=== PATIENT | female | born 1950 | race Caucasian/White ===

== ENCOUNTER → 2017-11-21 13:36 | Outpatient (CLI) | payer OTHER, MEDICARE, SELFPAY ==
--- NOTE | 2017-11-21 13:44 | CT_ITS ---
CT hip LT wo con HISTORY: Left hip pain/contusion following injury ITS.REASON: LUMBAR CONTUSION S/P FALL LEFT HIP PAIN ORDERING PHYSICIAN: Ephraim Lombardo MD PATIENT AGE: 67 years TECHNIQUE: Axial images are obtained without contrast. Sagittal, coronal, and 3-D reformatted images are also generated and reviewed. COMPARISON: None FINDINGS: No fracture or dislocation. There are mild osteoarthritic changes of the left hip. No lytic or blastic change. There is some subcutaneous calcification noted in the left buttock injection granulomas. IMPRESSION: 1. No acute fracture or other acute anomalies. 2. Mild osteoarthritic changes of the left hip
--- NOTE | 2017-11-21 13:44 | CT_ITS ---
CT lumbar spine wo con INDICATION: Low back pain following injury, lumbar contusion ITS.REASON: LUMBAR CONTUSION LEFT HIP PAIN ORDERING PHYSICIAN: Ephraim Lombardo MD PATIENT AGE: 67 years COMPARISON: Previous lumbar spine exam of 12/27/[address] scan of the abdomen of 10/15/2011 TECHNIQUE: Axial images are obtained without contrast. Sagittal and coronal reformatted images are reviewed as well. FINDINGS: There are vestigial 12th ribs. Mildly displaced fracture involving the tip of the transverse process on the left at L1. Mild displaced fracture involves the mid aspect of the left transverse process of L2 and a mildly displaced fracture involving the base of the transverse process on the left at L3 with the lateral fracture fragment displaced laterally x 4 mm. The disc spaces are well-preserved. No other fractures are apparent. Mild bulging disc is present at L4-L5 and L5-S1. There are facet hypertrophic changes at L4-5 and L5-S1 with mild anterolisthesis of L5 3 mm with bilateral foraminal narrowing at L5-S1. There is some subcutaneous edema in the lumbar region with increased soft tissue density in the left posterior lumbar region which may relate to contusion or hematoma. IMPRESSION: 1. Mildly displaced fractures involving the transverse process on the left at L1, L2, and L3 along with a minimal displaced fracture involving the vestigial 12th rib on the left 2. Mild bulging disc at L4-L5 and L5-S1 with prominent facet hypertrophic changes at L5-S1 and bilateral foraminal narrowing with mild anterolisthesis of L5
== END ==
PROVIDERS: Family Provider Internal Medicine Adolescent Medicine; PCP Internal Medicine Adolescent Medicine; Visit Provider Internal Medicine Adolescent Medicine
DX: M25.552 Pain in left hip (principal); S30.0XXD Contusion of lower back and pelvis, subsequent encounter
CPT/HCPCS: 72131; 73700

== ENCOUNTER → 2017-12-25 07:09 | Outpatient (CLI) | payer MEDICARE, OTHER, SELFPAY ==
[2017-12-25 13:41] LABS: Basophils # 0.1 K/mm3 (0-0.2); Basophils % 0.5 % (0.1-2.0); Eosinophils # 0.2 K/mm3 (0.0-0.4); Eosinophils % 2.9 % (0.1-12.0); Hematocrit 43.1 % (37.0-47.0); Hemoglobin 14.2 g/dL (12.2-16.2); Lymphocytes # 2.4 K/mm3 (0.7-4.5); Lymphocytes % 28.5 K/mm3 (10-50); Mean Corpuscular HGB Conc 33.1 g/dL (31.8-35.4); Mean Corpuscular Hemoglobin 29.1 pg (27.0-31.2); Mean Corpuscular Volume 88.1 fl (81-99); Mean Platelet Volume 8.8 fl (7.4-10.4); Monocytes # 0.5 K/mm3 (0.1-1.0); Monocytes % 5.4 % (1.7-9.3); Neutrophils # 5.2 K/mm3 (1.8-7.8); Neutrophils % 62.7 % (37.0-80.0); Platelet Count 197 K/mm3 (142-424); Red Blood Count 4.89 M/mm3 (4.20-5.40); Red Cell Distribution Width 12.9 % (11.5-17.5); White Blood Count 8.3 K/mm3 (4.8-10.8)
[2017-12-26 11:39] LABS: Vitamin B12 555 pg/mL (232-1245); Vitamin D 25 Hydroxy 8.3 ng/mL (30.0-100.0)
[2017-12-26 15:14] LABS: Alanine Aminotransferase 20 U/L (12-78); Albumin Level 3.8 gm/dL (3.4-5.0); Albumin/Globulin Ratio 1.3 (1.1-1.8); Alkaline Phosphatase 140 U/L (46-116); Anion Gap 12.5 mEq/L (5-15); Aspartate Amino Transferase 10 U/L (15-37); Bilirubin,Total 0.4 mg/dL (0.2-1.0); Blood Urea Nitrogen 14 mg/dL (7-18); Calcium 8.7 mg/dL (8.5-10.1); Carbon Dioxide 27 mmol/L (21.0-32.0); Chloride 108 mmol/L (98-107); Creatinine,Serum 1.09 mg/dL (0.55-1.02); Estimated Glomerular Filt Rate 50 ml/min (>60); Free Thyroxine Index 3.2 ug/dL (5.93-13.13); GFR (African American) 61 ML/MIN (>60); Globulin 2.9 gm/dl (1.3-3.2); Glucose 84 mg/dL (74-106); Magnesium 1.8 mg/dL (1.4-2.2); Potassium 4.5 mmoL/L (3.5-5.1); Sodium 143 mmol/L (136-145); T4 (Thyroxine) 9.7 ug/dl (4.7-13.3); Thyroid Stimulating Hormone 1.23 uIU/ml (0.358-3.740); Total Protein,Serum 6.7 gm/dL (6.4-8.2); Triiodothryronine (T3) Uptake 33 % (31-39)
== END ==
PROVIDERS: Visit Provider Internal Medicine Adolescent Medicine
DX: R53.81 Other malaise (principal); M79.1 Myalgia
CPT/HCPCS: 36415; 80053; 82607; 82652; 83735; 84436; 84443; 84479; 85025

== ENCOUNTER 2017-12-30 15:30 | Outpatient (RCR) | payer OTHER, MEDICARE, SELFPAY | END 2017-12-30 17:00 | disposition home or self-care (01) | LOC: PT 15:30 | PROVIDERS: Family Provider Internal Medicine Adolescent Medicine; PCP Internal Medicine Adolescent Medicine; Visit Provider Orthopaedic Surgery | DX: M47.898 Other spondylosis, sacral and sacrococcygeal region (principal); M54.5 Low back pain | CPT/HCPCS: 97110 ==

== ENCOUNTER → 2018-04-21 07:04 | Outpatient (CLI) | payer MEDICARE, OTHER, SELFPAY ==
[2018-04-21 14:04] LABS: Basophils % 0.6 % (0.1-2.0); Eosinophils # 0.3 K/mm3 (0.0-0.4); Eosinophils % 3.9 % (0.1-12.0); Hematocrit 41.5 % (37.0-47.0); Hemoglobin 13.3 g/dL (12.2-16.2); Lymphocytes # 2.3 K/mm3 (0.7-4.5); Lymphocytes % 35.8 K/mm3 (10-50); Mean Corpuscular HGB Conc 32.1 g/dL (31.8-35.4); Mean Corpuscular Hemoglobin 28.8 pg (27.0-31.2); Mean Corpuscular Volume 89.6 fl (81-99); Mean Platelet Volume 8.8 fl (7.4-10.4); Monocytes # 0.4 K/mm3 (0.1-1.0); Monocytes % 5.9 % (1.7-9.3); Neutrophils # 3.4 K/mm3 (1.8-7.8); Neutrophils % 53.8 % (37.0-80.0); Platelet Count 245 K/mm3 (142-424); Red Blood Count 4.63 M/mm3 (4.20-5.40); Red Cell Distribution Width 12.9 % (11.5-17.5); White Blood Count 6.4 K/mm3 (4.8-10.8)
[2018-04-21 14:24] LABS: Alanine Aminotransferase 19 U/L (12-78); Albumin Level 3.6 gm/dL (3.4-5.0); Albumin/Globulin Ratio 1.4 (1.1-1.8); Alkaline Phosphatase 127 U/L (46-116); Anion Gap 13.3 mEq/L (5-15); Aspartate Amino Transferase 14 U/L (15-37); Bilirubin,Total 0.3 mg/dL (0.2-1.0); Blood Urea Nitrogen 14 mg/dL (7-18); Calcium 8.6 mg/dL (8.5-10.1); Carbon Dioxide 26 mmol/L (21.0-32.0); Chloride 108 mmol/L (98-107); Chol/HDL Ratio 5.5 (1-3.5); Cholesterol 205 mg/dL (140-200); Estimated Glomerular Filt Rate 50 ml/min (>60); GFR (African American) 60 ML/MIN (>60); Globulin 2.6 gm/dl (1.3-3.2); Glucose 90 mg/dL (74-106); HDL Cholesterol 37 mg/dL (29-89); LDL Cholesterol 134 mg/dL (0-130); Potassium 4.3 mmoL/L (3.5-5.1); Sodium 143 mmol/L (136-145); Total Protein,Serum 6.2 gm/dL (6.4-8.2); Triglycerides 168 mg/dL (30-200); VLDL Cholesterol 34 mg/dL (0-40)
[2018-04-23 08:04] LABS: Vitamin D 25 Hydroxy 33.5 ng/mL (30.0-100.0)
== END ==
PROVIDERS: Visit Provider Internal Medicine Adolescent Medicine
DX: E78.5 Hyperlipidemia, unspecified (principal); E55.9 Vitamin D deficiency, unspecified
CPT/HCPCS: 36415; 80053; 80061; 82652; 85025

== ENCOUNTER → 2018-08-18 16:13 | Outpatient (CLI) | payer MEDICARE, OTHER, SELFPAY ==
--- NOTE | 2018-08-18 16:15 | MM_ITS ---
MM Dig screening mamm BI w/CAD CAD Screening COMPARISON: Digital mammograms with CAD 04/17/2011 and 01/19/2014 INDICATION: There is no personal or family history of breast cancer TECHNIQUE: Standard CC and MLO images were obtained. R2 CAD reviewed. FINDINGS: The breasts are composed primarily of fat with scattered fibroglandular densities in the subareolar regions of both breasts. There are stable tiny nodular densities in both breasts. There is no suspicious lesion and there are no suspicious microcalcifications. IMPRESSION: Fibrofatty parenchyma with no suspicious lesion seen BI-RADS Category: 2 Benign Finding(s) RECOMMENDED FOLLOW-UP: 1YR - 1 YEAR FOLLOW-UP (A letter has been sent to the patient regarding results of the study.)
== END ==
PROVIDERS: Family Provider Internal Medicine Adolescent Medicine; PCP Internal Medicine Adolescent Medicine; Visit Provider Internal Medicine Adolescent Medicine
DX: Z12.31 Encounter for screening mammogram for malignant neoplasm of breast (principal)
CPT/HCPCS: 77067

== ENCOUNTER 2018-10-22 14:27 | Inpatient (IN) ==
[2018-10-22 15:09] LABS: Microscopic, Urine URINE MICROSCOPIC (MICROSCOPIC)
[2018-10-22 15:12] LABS: Basophils # 0.1 K/mm3 (0-0.2); Basophils % 0.9 % (0.1-2.0); Eosinophils # 0.2 K/mm3 (0.0-0.4); Eosinophils % 1.4 % (0.1-12.0); Hematocrit 42.4 % (37.0-47.0); Lymphocytes # 2.2 K/mm3 (0.7-4.5); Mean Corpuscular Hemoglobin 30.6 pg (27.0-31.2); Mean Corpuscular Volume 92.7 fl (81-99); Mean Platelet Volume 7.7 fl (7.4-10.4); Monocytes # 0.7 K/mm3 (0.1-1.0); Monocytes % 5.4 % (1.7-9.3); Neutrophils # 10.4 K/mm3 (1.8-7.8); Neutrophils % 76.4 % (37.0-80.0); Platelet Count 234 K/mm3 (142-424); Red Blood Count 4.58 M/mm3 (4.20-5.40); Red Cell Distribution Width 13.8 % (11.5-17.5); White Blood Count 13.6 K/mm3 (4.8-10.8)
[2018-10-22 15:18] LABS: Appearance,Urine CLEAR (Clear); Bilirubin,Urine Negative (Negative); Blood, Urine Negative (Negative); Color,Urine YELLOW (Yellow); Glucose,Urine (UA) Negative (Negative); Ketones,Urine Negative (Negative); Leukocyte Esterase,Urine Negative (Negative); Protein,Urine Negative (Negative); Specific Gravity, Urine <= 1.005 (1.005-1.030); Urobilinogen,Urine 0.2 EU/dl (0.2)
[2018-10-22 15:31] LABS: Bacteria,Urine Trace /lpf
[2018-10-22 15:33] LABS: Albumin Level 3.7 gm/dL (3.4-5.0); Albumin/Globulin Ratio 1.1 (1.1-1.8); Anion Gap 14.1 mEq/L (5-15); Bilirubin,Total 0.3 mg/dL (0.2-1.0); Calcium 8.7 mg/dL (8.5-10.1); Globulin 3.3 gm/dl (1.3-3.2); Potassium 4.1 mmoL/L (3.5-5.1)
--- NOTE | 2018-10-22 17:37 | Emergency Department Note ---
ED Disposition Clinical Impression: Acute hypoxemic respiratory failure COPD (chronic obstructive pulmonary disease) Qualifiers: COPD type: COPD with acute exacerbation Qualified Code(s): J44.1 - Chronic obstructive pulmonary disease with (acute) exacerbation Disposition: Admitted as Observation Condition on Discharge: Good Time of Disposition: 08:00 - Critical Care Critical Care Time: No Attestation: On 10/22/18, the high probability of a clinically significant, sudden or life threatening deterioration of the following system(s) required my full and direct attention, intervention and personal management. The time I documented below is in addition to time spent performing reported procedures but includes the following listed in this critical care notation. Medical Decision Making - Noble Inquiry Pt receiving controlled substance: No Noble was queried for this patient: No Vital Signs: 10/22/18 14:45 10/22/18 15:00 10/22/18 15:23 Temperature 98.1 F Temperature Source Oral Pulse Rate 72 Pulse Rate [Right Brachial] 85 85 Respiratory Rate 16 20 Blood Pressure Blood Pressure [Right Arm] 113/65 164/68 H Blood Pressure Mean [Right Arm] 81 100 Blood Pressure Source Blood Pressure Source [Right Arm] Automatic Cuff Automatic Cuff Blood Pressure Position Blood Pressure Position [Right Arm] Sitting Sitting 02 Sat by Pulse Oximetry 83 L 98 94 L Oxygen Delivery Method Room Air Nasal Cannula Nasal Cannula Oxygen Flow Rate (LPM) 2 2 10/22/18 16:21 10/22/18 18:21 10/22/18 18:29 Temperature 98.7 F 98.7 F Temperature Source Oral Oral Pulse Rate 81 83 Pulse Rate [Right Brachial] 76 Respiratory Rate 20 20 Blood Pressure 174/91 H Blood Pressure [Right Arm] 192/73 H Blood Pressure Mean [Right Arm] 112 Blood Pressure Source Automatic Cuff Blood Pressure Source [Right Arm] Automatic Cuff Blood Pressure Position Sitting Blood Pressure Position [Right Arm] Sitting 02 Sat by Pulse Oximetry 95 Oxygen Delivery Method Room Air Room Air Oxygen Flow Rate (LPM) 10/22/18 18:35 Temperature Temperature Source Pulse Rate Pulse Rate [Right Brachial] Respiratory Rate Blood Pressure Blood Pressure [Right Arm] Blood Pressure Mean [Right Arm] Blood Pressure Source Blood Pressure Source [Right Arm] Blood Pressure Position Blood Pressure Position [Right Arm] 02 Sat by Pulse Oximetry Oxygen Delivery Method Nasal Cannula Oxygen Flow Rate (LPM) - Lab Data Lab Results 10/22/18 14:55: WBC 13.6 H, RBC 4.58, Hgb 14.0, Hct 42.4, MCV 92.7, MCH 30.6, MCHC 33.0, RDW 13.8, Plt Count 234, MPV 7.7, Neut % (Auto) 76.4, Lymph % (Auto) 16.0, [place] % (Auto) 5.4, Eos % (Auto) 1.4, Baso % (Auto) 0.9, Neut # (Auto) 10.4 H, Lymph # (Auto) 2.2, [place] # (Auto) 0.7, Eos # (Auto) 0.2, Baso # (Auto) 0.1 10/22/18 14:55: Sodium 142, Potassium 4.1, Chloride 103, Carbon Dioxide 29, Anion Gap 14.1, BUN 13, Creatinine 1.15 H, Estimated Creat Clear 56, Estimated GFR 47 L, Est GFR ( Amer) 57 L, Glucose 71 L, Calcium 8.7, Total Bilirubin 0.3, AST 17, ALT 27, Alkaline Phosphatase 126 H, Total Protein 7.0, Albumin 3.7, Globulin 3.3 H, Albumin/Globulin Ratio 1.1 10/22/18 14:55: Lactate 1.0 10/22/18 14:55: Influenza Type A Ag Negative, Influenza Type B Ag Negative 10/22/18 14:55: Urine Color Yellow, Urine Appearance Clear, Urine pH 6.0, Ur Specific [place] <= 1.005, Urine Protein Negative, Urine Glucose (UA) Negative, Urine Ketones Negative, Urine Blood Negative, Urine Nitrate Negative, Urine Bilirubin Negative, Urine Urobilinogen 0.2, Ur Leukocyte Esterase Negative, Urine RBC None, Urine WBC 3-5, Ur Squamous Epith Cells 3-5, Urine Bacteria Trace Result diagrams: 10/24/18 07:06 10/24/18 07:06 Orders (Tests/Meds): ED MEDICATIONS Discontinued Medications Generic Name Dose Route Start Last Admin Trade Name Freq PRN Reason Stop Dose Admin Acetaminophen 500 mg 10/22/18 20:54 10/23/18 21:11 Tylenol 500mg Tablet PO 11/21/18 20:53 500 mg Q6HP PRN Administration Mild Pain Albuterol/Ipratropium 3 ml 10/22/18 14:55 10/22/18 14:58 Duoneb 3ml Neb IH 10/22/18 14:56 3 ml ONCE ONE Administration Albuterol/Ipratropium 3 ml 10/22/18 16:20 10/22/18 16:21 Duoneb 3ml Neb 10/22/18 16:21 3 ml ONCE ONE Administration Albuterol/Ipratropium 3 ml 10/22/18 17:43 Duoneb 3ml Neb 11/21/18 17:42 Q4HP PRN Dyspnea Albuterol/Ipratropium 3 ml 10/22/18 18:14 10/23/18 20:38 Duoneb 3ml Neb 11/21/18 17:42 3 ml Q4HP PRN Administration Dyspnea Benzonatate 200 mg 10/22/18 16:15 10/22/18 16:08 Tessalon Perles 100mg Capsule PO 11/21/18 16:14 200 mg ONCE TANA Administration Benzonatate 200 mg 10/22/18 18:14 Tessalon Perles 100mg Capsule PO 11/21/18 16:14 ONCE TANA Benzonatate 200 mg 10/22/18 18:14 10/23/18 23:11 Tessalon Perles 100mg Capsule PO 10/22/18 18:15 Not Given ONCE ONE Citalopram Hydrobromide 40 mg 10/23/18 09:00 10/24/18 09:25 Celexa 40mg Tablet PO 11/22/18 08:59 40 mg DAILY TANA Administration Piperacillin Sod/Tazobactam 100 mls @ 200 mls/hr 10/23/18 09:00 10/24/18 09:27 Sod 4.5 gm/ Sodium Chloride IV 11/06/18 08:59 200 mls/hr Q6H TANA Administration Methylprednisolone Sodium Succinate 125 mg 10/22/18 14:56 10/22/18 14:58 Solu-Medrol 125mg/2ml Vial IV 10/22/18 14:57 125 mg ONCE ONE Administration Methylprednisolone Sodium Succinate 60 mg 10/22/18 18:00 10/22/18 18:17 Methylprednisolone Sod Succinate 40mg Vial IV 11/21/18 17:59 Not Given Q6H TANA Methylprednisolone Sodium Succinate 60 mg 10/23/18 00:00 10/23/18 05:13 Methylprednisolone Sod Succinate 40mg Vial IV 11/21/18 17:59 60 mg Q6H TANA Administration Methylprednisolone Sodium Succinate 60 mg 10/23/18 08:27 10/24/18 09:27 Solu-Medrol 125mg/2ml Vial IV 11/21/18 17:59 60 mg Q6H TANA Administration Oxycodone/Acetaminophen 1 each 10/23/18 08:36 10/24/18 09:27 Percocet 5/325mg Tablet PO 11/22/18 08:35 1 each Q6HP PRN Administration Breakthru Mild Pain Pantoprazole Sodium 40 mg 10/23/18 21:00 10/23/18 21:11 Protonix 40mg Tablet PO 11/22/18 20:59 40 mg HS TANA Administration Promethazine HCl/Codeine 10 ml 10/22/18 16:51 10/22/18 16:54 Phenergan W/Codeine 6.25mg/10mg 5ml Udc PO 10/22/18 16:52 10 mg ONCE ONE Administration Promethazine HCl/Codeine 5 ml 10/22/18 17:43 10/22/18 18:17 Phenergan W/Codeine 6.25mg/10mg 5ml Udc PO 10/22/18 17:44 Not Given ONCE ONE Promethazine HCl/Codeine 5 ml 10/22/18 18:14 10/22/18 18:17 Phenergan W/Codeine 6.25mg/10mg 5ml Udc PO 10/22/18 18:15 Not Given ONCE ONE Sodium Chloride 10 ml 10/22/18 14:55 Saline Flush 10ml Syringe IV 11/21/18 14:54 NEEDED PRN Maintain IV Site Sodium Chloride 3 ml 10/22/18 14:57 Sodium Chloride 3% 15ml [facility] 11/21/18 14:56 ONCE PRN INDUCE [employer] Sodium Chloride 10 ml 10/22/18 18:14 Saline Flush 10ml Syringe IV 11/21/18 14:54 NEEDED PRN Maintain IV Site Sodium Chloride 3 ml 10/22/18 18:14 Sodium Chloride 3% 15ml [facility] 11/21/18 14:56 ONCE PRN INDUCE SPUTUM [employer]LECTION ORDERS Category Date Time Status UA [Urinalysis and Microscopic] Stat Lab 10/22/18 14:55 Ordered Blood Culture Stat Micro 10/22/18 14:55 Ordered General Adult HPI - General Chief complaint: Shortness of Breath/Dyspnea Stated complaint: weak, cough,achy,chills Mode of Arrival: Ambulatory Limitations: No Limitations Description of Symptoms (Recalled from ER Triage Doc. by RN): Pt advises she was sent from office for [place] work-up. Pt c/o SOA, body aches, headache. Symptoms started two days ago - History of Present Illness HPI narrative: two days of worsening shortness of breath, fatigue, chills - Related Data Home Medications Medication Instructions Recorded Confirmed RX: Citalopram Hydrobromide 40 mg PO DAILY 03/02/18 10/22/18 [Celexa 40mg Tablet] RX: Omeprazole [Omeprazole 40mg 40 mg PO DAILY 03/02/18 10/22/18 Capsule] Previous Rx's Medication Instructions Recorded Albuterol Sulfate [Albuterol HFA 2 - 4 puffs IH Q4HP PRN 30 Days #1 10/24/18 Inhaler] inh Amoxicillin/Potassium Clav 1 tab PO Q12H 8 Days #16 tab 10/24/18 [Augmentin 875-125 Tablet] RX: Azithromycin [Z-José Luis 250mg Tab] 250 mg PO UD DOSE PK #6 tab 10/24/18 RX: Oxycodone HCl/Acetaminophen 1 each PO Q6HP PRN tablet 10/24/18 [Percocet 5/325mg tablet] Allergies Allergy/AdvReac Type Severity Reaction Status Date / Time No Known Allergies Allergy Verified 10/22/18 14:54 [facility] History - Hepatitis A Screen Drug use history?: No High risk sexual behaviors?: No History of sexually transmitted infection?: No Currently employed?: No Childcare worker?: No Do you have indoor plumbing?: Yes Do you have electricity?: Yes Attestation statement:: This patient has been screened for Hepatitis A risk factors. I have reviewed the patient's past medical history: Yes Medical History: Reports:: Lung Disease (COPD) Denies:: Cancer, Diabetes Mellitus Type 1, Diabetes Mellitus Type 2, Internal Pacemaker, MRSA, Seizures Other Surgeries: No: Pacemaker Amputation: No Fractures: No - Social History Smoking Status: Current every day smoker Alcohol Intake: never - Psychiatric History Expresses thoughts of harming self/others: None Suicide Plan Description: No Plan ROS Obtained: Yes All systems reviewed & no additional complaints - Constitutional Constitutional: Reports system reviewed and no additional complaints, except as docu, Reports chills, Reports fever(s), Reports malaise - Eyes Eyes: Reports system reviewed and no additional complaints, except as docu, Denies blurry vision, Denies change in vision - ENT Ears, Nose, Mouth, and Throat: Reports system reviewed and no additional comp laints, except as docu, Denies throat swelling - Cardiovascular Cardiovascular: Reports system reviewed and no additional complaints, except as docu, Denies chest pain, Denies chest pain at rest, Denies chest pain with activity, Reports dyspnea, Reports dyspnea on exertion, Denies palpitations, Denies pedal edema - Respiratory Respiratory: Yes system reviewed and no additional complaints, except as docu, Yes chest congestion, Yes cough, Yes dyspnea, Yes dyspnea on exertion, No coughing up blood, Yes pain on inspiration, Yes wheezing - Gastrointestinal Gastrointestingal: Reports: system reviewed and no additional complaints, except as docu - Genitourinary Male Genitourinary: Reports system reviewed and no additional complaints, except as docu Female Genitourinary: Reports system reviewed and no additional complaints, except as docu - Musculoskeletal Musculoskeletal: Reports system reviewed and no additional complaints, except as docu, Denies decreased muscle mass, Denies stiffness, Denies tingling - Integumentary/Breasts Skin/Breast: Reports system reviewed and no additional complaints, except as docu, Reports rash - Neurologic Neurologic: Reports system reviewed and no additional complaints, except as docu, Denies abnormal movements, Denies dizziness, Denies focal weakness, Denies tingling/numbness/burning sensations Physical Exam - General General appearance: alert, anxious, in distress - Head Head exam: atraumatic, normocephalic - Eye Eye exam: Present: normal appearance, PERRL, EOMI - ENT ENT exam: Present: normal exam, normal oropharynx. Absent: mucous membranes moist - Neck Neck exam: Present: normal inspection, full ROM, trachea midline. Absent: tenderness, meningismus - Chest Chest inspection: Present: normal inspection. Absent: symmetric chest wall rise, tenderness - Respiratory Respiratory exam: Present: respiratory distress, wheezes, stridor. Absent: normal lung sounds bilaterally - Cardiovascular Cardiovascular exam: Present: regular rate, normal rhythm. Absent: tachycardia - Abdominal Exam Abdominal exam: Present: soft, distention, normal bowel sounds. Absent: tenderness, guarding - Extremities Exam Extremities exam: Present: normal inspection. Absent: full ROM, tenderness - Neurological Exam Neurological exam: Present: alert, oriented X3, CN II-XII intact - Psychiatric Psychiatric exam: Present: normal affect, normal mood - Skin Skin exam: Present: warm, dry, intact. Absent: rash
--- NOTE | 2018-10-23 07:39 | Pharmacy Consult Notes ---
[facility] Pharmacy VTE Monitoring - Patient Demographics Admission date: 10/22/18 Report Date: 10/23/18 Time: 07:39 Allergies/Adverse Reactions: Patient Allergies No Known Allergies Allergy (Verified 10/22/18 14:54) Height: 1.75 m Weight: 76.884 kg Patient Problems: Current Active Problems COPD (chronic obstructive pulmonary disease) (Acute) - VTE Risk Labs: VTE Related Lab Results Hgb 14.0 g/dL (12.2-16.2) 10/22/18 14:55 Hct 42.4 % (37.0-47.0) 10/22/18 14:55 Plt Count 234 K/mm3 (142-424) 10/22/18 14:55 BUN 13 mg/dL (7-18) 10/22/18 14:55 Creatinine 1.15 mg/dL (0.55-1.02) H 10/22/18 14:55 Estimated Creat Clear 56 mL/min (50-200) 10/22/18 14:55 VTE Score: 3 VTE Risk Level: Low Risk - Prophylaxis VTE Prophylaxis Ordered?: Yes Types of VTE Prophylaxis: TEDS Knee High Location of Applied Device: Bilateral Lower Extremeties - VTE Diagnosis Confirmed Treatment or plan recommended: Continue Current Treatment
--- NOTE | 2018-10-23 07:57 | History & Physical Report ---
*Admission Date: 10/22/18 *Chief complaint: dyspnea *History of present illness: 68yo F well known to our clinic with Hx of COPD, Anxiety, and tobacco dependence. Presented to ER with worsening respiratory distress over the past 3-4 days. Treated last week for COPD exacerbation with completion of Abx and St eroids on Friday. Keyser better at that time with worsening since completion of meds. Using her inhalers at home. Not on O2 at home. Upon presentation to ER found to be hypoxic at 83% on RA. Given several Nebs and Supplemental O2 with improvement. Admitted to Medicine for further management. Cultures obtained and pending. Denies Fevers, N/V/D, CP, CALDERA, Lethargy or confusion. C/o SOA, Cough, chest wall pain. [facility] History I have reviewed the patient's past medical history: Yes Medical History: Reports:: Lung Disease (COPD) Denies:: Cancer, Diabetes Mellitus Type 1, Diabetes Mellitus Type 2, Internal Pacemaker, MRSA, Seizures Other Medical History: Reports: Fibromyalgia Other Surgeries: Yes: Cholecystectomy, Hysterectomy-Total. No: Pacemaker Amputation: No Fractures: No - *Social History Educational Level: Attended College Smoking Status: Current every day smoker Tobacco Type: cigarettes # Packs/Day (cigarettes): 1 #Yrs smoked (if former smoker): 53 Alcohol Intake: never Occupational Status: employed Housing: house Household Members: spouse, children - Psychiatric History Expresses thoughts of harming self/others: None Suicide Plan Description: No Plan *Family Hx:: Heart Attack, Hypertension Review of Systems - Review of Systems Review of systems:: pertinent systems reviewed and negative unless documented below - *Neurologic Denies abnormal movements, Denies dizziness, Denies localized weakness, Denies tingling/numbness/burning sensations, Denies tingling Meds Home Medications Medication Instructions Recorded Confirmed Type Citalopram Hydrobromide [Celexa 40 mg PO DAILY 03/02/18 10/22/18 History 40mg Tablet] Loratadine/Pseudoephedrine 1 each PO DAILY 03/02/18 10/22/18 History [Allergy Relief D-24 Tablet] Omeprazole [Omeprazole 40mg 40 mg PO DAILY 03/02/18 10/22/18 History Capsule] Allergies Allergy/AdvReac Type Severity Reaction Status Date / Time No Known Allergies Allergy Verified 10/22/18 14:54 Exam Vital signs and Labs for Last 24 Hours: Temp Pulse Resp BP Pulse Ox 98.6 F 68 16 143/67 H 95 10/23/18 04:37 10/23/18 04:37 10/23/18 04:37 10/23/18 04:37 10/23/18 04:37 Laboratory Results - last 24 hr 10/22/18 14:55: WBC 13.6 H, RBC 4.58, Hgb 14.0, Hct 42.4, MCV 92.7, MCH 30.6, MCHC 33.0, RDW 13.8, Plt Count 234, MPV 7.7, Neut % (Auto) 76.4, Lymph % (Auto) 16.0, [place] % (Auto) 5.4, Eos % (Auto) 1.4, Baso % (Auto) 0.9, Neut # (Auto) 10.4 H, Lymph # (Auto) 2.2, [place] # (Auto) 0.7, Eos # (Auto) 0.2, Baso # (Auto) 0.1 10/22/18 14:55: Sodium 142, Potassium 4.1, Chloride 103, Carbon Dioxide 29, Anion Gap 14.1, BUN 13, Creatinine 1.15 H, Estimated Creat Clear 56, Estimated GFR 47 L, Est GFR ( Amer) 57 L, Glucose 71 L, Calcium 8.7, Total Bilirubin 0.3, AST 17, ALT 27, Alkaline Phosphatase 126 H, Total Protein 7.0, Albumin 3.7, Globulin 3.3 H, Albumin/Globulin Ratio 1.1 10/22/18 14:55: Lactate 1.0 10/22/18 14:55: Influenza Type A Ag Negative, Influenza Type B Ag Negative 10/22/18 14:55: Urine Color Yellow, Urine Appearance Clear, Urine pH 6.0, Ur Specific [place] <= 1.005, Urine Protein Negative, Urine Glucose (UA) Negative, Urine Ketones Negative, Urine Blood Negative, Urine Nitrate Negative, Urine Bilirubin Negative, Urine Urobilinogen 0.2, Ur Leukocyte Esterase Negative, Urine RBC None, Urine WBC 3-5, Ur Squamous Epith Cells 3-5, Urine Bacteria Trace I & O for Last 24 hours: Intake & Output 10/20/18 10/21/18 10/22/18 10/23/18 23:59 23:59 23:59 23:59 Weight 76.884 kg 76.884 kg Microbiology Reports for the Last 24 Hours: Microbiology 10/22/18 15:00 Sputum - Expectorated Sputum Gram Stain - Final 10/22/18 15:00 Sputum - Expectorated Sputum Sputum Culture - Preliminary - Constitutional mild distress, chronically ill appearing - *Routine HEENT Exam Head: Present: normocephalic, atraumatic Eye: Present: EOMI, PERRL ENT: Present: mucous membranes moist - *Routine Neck Exam Present: supple, full ROM. Absent: JVD - *Routine Respiratory Exam Present: prolonged expiratory phase, wheezes, diminished air movement. Absent: rales, crackles - *Routine Cardiovascular Exam Present: RRR, Normal S1, Normal S2. Absent: murmur - *Routine Abdominal Exam Present: soft, normoactive bowel sounds - *Routine Rectal Exam Patient deferred: visual exam - *Routine Exam Patient deferred: external exam - *Routine Extremities Exam Absent: cyanosis, clubbing, edema - *Routine Skin Exam Present: intact. Absent: cyanosis, erythema - *Routine Neurological Exam Present: alert, oriented X3. Absent: altered mental status Assessment and Plan (1) Acute hypoxemic respiratory failure Current visit: Yes Status: Acute Category: Medical Code(s): J96.01 - Acute respiratory failure with hypoxia Likely due to PNA vs COPD exacerbation - Cultures obtained - Supplemental O2 as needed, goal Sats >88 while asleep, >92 while awake. - continue Nebs q4prn - continue Steroids - Initiate Abx, Zosyn, plan to transiton to PO Augmentin and Azith for DC home tomorrow if continues to improve with 10 course of Tx. (2) Leukocytosis Current visit: Yes Status: Acute Qualifiers: Leukocytosis type: leukemoid reaction Qualified Code(s): D72.823 - Leukemoid reaction Category: Medical Code(s): D72.829 - Elevated white blood cell count, unspecified due to above.
[2018-10-24 07:18] LABS: Basophils % 0.1 % (0.1-2.0); Eosinophils # 0.1 K/mm3 (0.0-0.4); Eosinophils % 0.3 % (0.1-12.0); Hematocrit 39.6 % (37.0-47.0); Lymphocytes # 0.8 K/mm3 (0.7-4.5); Lymphocytes % 3.8 % (10-50); Mean Corpuscular HGB Conc 32.9 g/dL (31.8-35.4); Mean Corpuscular Hemoglobin 30.3 pg (27.0-31.2); Mean Platelet Volume 7.6 fl (7.4-10.4); Monocytes # 0.6 K/mm3 (0.1-1.0); Monocytes % 2.7 % (1.7-9.3); Neutrophils # 19.8 K/mm3 (1.8-7.8); Neutrophils % 93.2 % (37.0-80.0); Platelet Count 187 K/mm3 (142-424); Red Cell Distribution Width 13.5 % (11.5-17.5); White Blood Count 21.2 K/mm3 (4.8-10.8)
[2018-10-24 07:25] LABS: Anion Gap 11.5 mEq/L (5-15); Calcium 8.5 mg/dL (8.5-10.1); Potassium 4.5 mmoL/L (3.5-5.1)
[2018-10-24 07:40] LABS: Lymphocytes % 6 % (10-50); Monocytes % 1 % (2-9); Neutrophils % 92 % (42-76); Total Cells Counted 100
[2018-10-24 07:41] LABS: RBC Morphology Normal
--- NOTE | 2018-10-24 08:29 | Discharge Summary ---
General - General Admission date:: 10/22/18 Discharge date: 10/24/18 HPI HPI: 68yo F well known to our clinic with Hx of COPD, Anxiety, and tobacco dependence. Presented to ER with worsening respiratory distress over the past 3-4 days. Treated last week for COPD exacerbation with completion of Abx and Steroids on Friday. Scribner better at that time with worsening since completion of meds. Using her inhalers at home. Not on O2 at home. Upon presentation to ER found to be hypoxic at 83% on RA. Given several Nebs and Supplemental O2 with improvement. Admitted to Medicine for further management. Cultures obtained and pending. Denies Fevers, N/V/D, CP, CALDERA, Lethargy or confusion. C/o SOA, Cough, chest wall pain. Hospital Course Hospital Course: Ms. Black was admitted for acute hypoxic respiratory failure. Initiated on broad-spectrum antibiotics and steroids. Initially required supplemental oxygen but improved to being stable on room air after less than 24 hours. Was assessed for home oxygen but did not meet criteria. Tolerated p.o. intake. Transition to p.o. antibiotics and steroids. Continue to remain hemodynamically stable with significant improvement and defervescence and symptoms. Stable for discharge home. Discharge with plan for treatment of pneumonia with 10 days of antibiotics. Plan to follow-up in clinic next week. Objective Vital signs: Temp Pulse Resp BP Pulse Ox 97.4 F L 59 L 17 173/69 H 94 L 10/24/18 04:00 10/24/18 04:00 10/24/18 04:00 10/24/18 04:00 10/24/18 08:00 Comments: - Constitutional No Acute distress, chronically ill appearing - *Routine HEENT Exam Head: Present: normocephalic, atraumatic Eye: Present: EOMI, PERRL ENT: Present: mucous membranes moist - *Routine Neck Exam Present: supple, full ROM. Absent: JVD - *Routine Respiratory Exam Present: prolonged expiratory phase, wheezes on left, diminished air movement. Absent: rales, crackles - *Routine Cardiovascular Exam Present: RRR, Normal S1, Normal S2. Absent: murmur - *Routine Abdominal Exam Present: soft, normoactive bowel sounds - *Routine Rectal Exam Patient deferred: visual exam - *Routine Exam Patient deferred: external exam - *Routine Extremities Exam Absent: cyanosis, clubbing, edema - *Routine Skin Exam Present: intact. Absent: cyanosis, erythema - *Routine Neurological Exam Present: alert, oriented X3. Absent: altered mental status Results Labs on day of discharge: Labs from last 24 hours 10/24/18 10/24/18 07:06 07:06 WBC 21.2 H* D RBC 4.30 Hgb 13.0 Hct 39.6 MCV 92.0 MCH 30.3 MCHC 32.9 RDW 13.5 Plt Count 187 MPV 7.6 Neut % (Auto) 93.2 H Lymph % (Auto) 3.8 L [place] % (Auto) 2.7 Eos % (Auto) 0.3 Baso % (Auto) 0.1 Neut # (Auto) 19.8 H Lymph # (Auto) 0.8 [place] # (Auto) 0.6 Eos # (Auto) 0.1 Baso # (Auto) 0.0 Total Counted 100 Neutrophils % (Manual) 92 H Lymphocytes % (Manual) 6 L Atypical Lymphs % 1.0 Monocytes % (Manual) 1 L Platelet Estimate Normal RBC Morphology Normal Sodium 141 Potassium 4.5 Chloride 105 Carbon Dioxide 29 Anion Gap 11.5 BUN 15 Creatinine 1.01 Estimated Creat Clear 67 Estimated GFR 55 L Est GFR ( Amer) 66 Glucose 135 H Calcium 8.5 DS: Diagnosis - Discharge Diagnosis (1) Acute hypoxemic respiratory failure Status: Acute (2) Leukocytosis Status: Acute (3) Hypertension Status: Acute Problem details: new onset, likely due to steroids. Address in outpatient setting after DC. Discharge Plan - Patient Discharge Instructions ACTIVITY: Continue current activity DIET: continue same diet - Follow up Plan Follow up with: Lio Paris MD [Staff Physician] - 1 week Disposition: Home, Self-[facility] Medications: Home Medications Medication Instructions Recorded Confirmed Type Citalopram Hydrobromide [Celexa 40 mg PO DAILY 03/02/18 10/22/18 History 40mg Tablet] Loratadine/Pseudoephedrine 1 tab PO DAILY 03/02/18 10/23/18 History [Allergy Relief D-24 Tablet] Omeprazole [Omeprazole 40mg 40 mg PO DAILY 03/02/18 10/22/18 History Capsule] Albuterol Sulfate [Albuterol HFA 2 - 4 puffs IH Q4HP PRN 30 Days #1 10/24/18 Rx Inhaler] inh Amoxicillin/Potassium Clav 1 tab PO Q12H 8 Days #16 tab 10/24/18 Rx [Augmentin 875-125 Tablet] Azithromycin [Z-José Luis 250mg Tab] 250 mg PO UD DOSE PK #6 tab 10/24/18 Rx Prescriptions/Medication Reconciliation: New Oxycodone HCl/Acetaminophen [Percocet 5/325mg tablet] 1 each PO Q6HP PRN tablet PRN Reason: Breakthru Mild Pain Continue Citalopram Hydrobromide [Celexa 40mg Tablet] 40 mg PO DAILY Omeprazole [Omeprazole 40mg Capsule] 40 mg PO DAILY Discontinued Loratadine/Pseudoephedrine [Allergy Relief D-24 Tablet] 1 tab PO DAILY
== END 2018-10-24 11:40 | disposition home or self-care (01) | DRG 189 ==
LOC: ER 14:27 → 2ND 17:55
PROVIDERS: ADMIT Family Medicine; ATTEND Internal Medicine Adolescent Medicine
CPT/HCPCS: 36415; 71020; 71046; 80048; 80053; 81001; 83605; 85007; 85025; 87040; 87070; 87205; 87275; 87276; 94640; 94761; 96374; 99284; J2543

== ENCOUNTER → 2018-11-03 15:40 | Outpatient (CLI) | payer MEDICARE, OTHER, SELFPAY ==
[2018-11-03 16:10] LABS: Basophils # 0.1 K/mm3 (0-0.2); Basophils % 0.6 % (0.1-2.0); Eosinophils # 0.1 K/mm3 (0.0-0.4); Eosinophils % 0.9 % (0.1-12.0); Hematocrit 39.5 % (37.0-47.0); Lymphocytes # 3.7 K/mm3 (0.7-4.5); Lymphocytes % 27.5 % (10-50); Mean Corpuscular HGB Conc 32.9 g/dL (31.8-35.4); Mean Corpuscular Volume 91.1 fl (81-99); Mean Platelet Volume 7.3 fl (7.4-10.4); Monocytes # 0.6 K/mm3 (0.1-1.0); Monocytes % 4.5 % (1.7-9.3); Neutrophils # 8.8 K/mm3 (1.8-7.8); Neutrophils % 66.6 % (37.0-80.0); Platelet Count 259 K/mm3 (142-424); Red Blood Count 4.33 M/mm3 (4.20-5.40); Red Cell Distribution Width 13.5 % (11.5-17.5); White Blood Count 13.3 K/mm3 (4.8-10.8)
[2018-11-03 16:17] LABS: Anion Gap 12.4 mEq/L (5-15); Blood Urea Nitrogen 19 mg/dL (7-18); Calcium 8.7 mg/dL (8.5-10.1); Carbon Dioxide 27 mmol/L (21.0-32.0); Chloride 101 mmol/L (98-107); Creatinine,Serum 1.18 mg/dL (0.55-1.02); Estimated Glomerular Filt Rate 46 ml/min (>60); GFR (African American) 55 ML/MIN (>60); Glucose 88 mg/dL (74-106); Potassium 4.4 mmoL/L (3.5-5.1); Sodium 136 mmol/L (136-145)
== END ==
PROVIDERS: Visit Provider Nurse Practitioner Family
DX: D72.829 Elevated white blood cell count, unspecified (principal)
CPT/HCPCS: 36415; 80048; 85025

== ENCOUNTER → 2018-11-06 13:46 | Outpatient (CLI) | payer MEDICARE, OTHER, SELFPAY | PROVIDERS: PCP Internal Medicine Adolescent Medicine; Visit Provider Internal Medicine Adolescent Medicine | DX: R06.02 Shortness of breath (principal) | CPT/HCPCS: 94060; 94640; 94726; 94729 ==

== ENCOUNTER 2018-11-24 15:07 | Outpatient (RCR) | payer MEDICARE, OTHER, SELFPAY | END 2019-01-20 08:53 | disposition home or self-care (01) | LOC: PT 15:07 | PROVIDERS: Visit Provider Internal Medicine Adolescent Medicine | DX: R06.02 Shortness of breath (principal); J44.1 Chronic obstructive pulmonary disease with (acute) exacerbation | CPT/HCPCS: G0424 ==

== ENCOUNTER → 2018-12-17 07:06 | Outpatient (CLI) | payer MEDICARE, OTHER, SELFPAY ==
[2018-12-17 14:13] LABS: Basophils # 0.1 K/mm3 (0-0.2); Basophils % 0.9 % (0.1-2.0); Eosinophils # 0.3 K/mm3 (0.0-0.4); Eosinophils % 2.9 % (0.1-12.0); Hematocrit 41.3 % (37.0-47.0); Hemoglobin 13.9 g/dL (12.2-16.2); Lymphocytes # 2.2 K/mm3 (0.7-4.5); Lymphocytes % 24.4 % (10-50); Mean Corpuscular HGB Conc 33.7 g/dL (31.8-35.4); Mean Corpuscular Hemoglobin 30.5 pg (27.0-31.2); Mean Corpuscular Volume 90.7 fl (81-99); Mean Platelet Volume 8.4 fl (7.4-10.4); Monocytes # 0.5 K/mm3 (0.1-1.0); Monocytes % 4.9 % (1.7-9.3); Neutrophils # 6.1 K/mm3 (1.8-7.8); Neutrophils % 66.9 % (37.0-80.0); Platelet Count 241 K/mm3 (142-424); Red Blood Count 4.55 M/mm3 (4.20-5.40); Red Cell Distribution Width 13.3 % (11.5-17.5); White Blood Count 9.2 K/mm3 (4.8-10.8)
[2018-12-17 14:25] LABS: Alanine Aminotransferase 22 U/L (12-78); Albumin Level 3.7 gm/dL (3.4-5.0); Albumin/Globulin Ratio 1.2 (1.1-1.8); Alkaline Phosphatase 140 U/L (46-116); Anion Gap 12.5 mEq/L (5-15); Aspartate Amino Transferase 11 U/L (15-37); Bilirubin,Total 0.5 mg/dL (0.2-1.0); Blood Urea Nitrogen 17 mg/dL (7-18); Calcium 9.3 mg/dL (8.5-10.1); Carbon Dioxide 29 mmol/L (21.0-32.0); Chloride 105 mmol/L (98-107); Chol/HDL Ratio 4.4 (1-3.5); Cholesterol 214 mg/dL (140-200); Creatinine,Serum 1.08 mg/dL (0.55-1.02); Estimated Glomerular Filt Rate 51 ml/min (>60); Free Thyroxine Index 3.2 ug/dL (5.93-13.13); GFR (African American) 61 ML/MIN (>60); Glucose 79 mg/dL (74-106); HDL Cholesterol 49 mg/dL (29-89); LDL Cholesterol 142 mg/dL (0-130); Magnesium 1.8 mg/dL (1.4-2.2); Potassium 4.5 mmoL/L (3.5-5.1); Sodium 142 mmol/L (136-145); T4 (Thyroxine) 10.4 ug/dl (4.7-13.3); Thyroid Stimulating Hormone 0.83 uIU/ml (0.358-3.740); Total Protein,Serum 6.7 gm/dL (6.4-8.2); Triglycerides 117 mg/dL (30-200); Triiodothryronine (T3) Uptake 31 % (31-39); VLDL Cholesterol 23 mg/dL (0-40)
[2018-12-18 10:54] LABS: Vitamin B12 441 pg/mL (232-1245)
[2018-12-18 10:56] LABS: Vitamin D 25 Hydroxy 17.7 ng/mL (30.0-100.0)
== END ==
PROVIDERS: PCP Internal Medicine Adolescent Medicine; Visit Provider Internal Medicine Adolescent Medicine
DX: R53.83 Other fatigue (principal); R53.81 Other malaise; I10 Essential (primary) hypertension
CPT/HCPCS: 36415; 80053; 80061; 82607; 82652; 83735; 84436; 84443; 84479; 85025

== ENCOUNTER → 2018-12-31 11:43 | Outpatient (CLI) | payer MEDICARE, OTHER, SELFPAY ==
--- NOTE | 2018-12-31 11:48 | NM_ITS ---
History and Indications: Hypertension, hyperlipidemia, family history, chest pain, shortness of breath, palpitations and fatigue Procedure: Patient received a 0.4 mg of intravenous Lexiscan, resting heart rate was 54 bpm resting blood pressure 158/44, with Lexiscan maximum heart rate achieved was 68 bpm which is less than 85% of the maximum predicted heart rate and a blood pressure was 151/57. With Lexiscan patient complained shortness of breath and nausea. Electrocardiogram: Resting electrocardiogram showed sinus bradycardia, with Lexiscan there is less than 1.[address] segment depression noted from the baseline EKG. The EKG portion of the Lexiscan Myoview is nondiagnostic Cardiac stress and resting SPECT images: Cardiac stress and resting SPECT images were obtained using technetium 99 Myoview 32.4 mCi stress and 10.2 mCi at rest. Gated SPECT further analysis of segmental wall motion and calculation of the ejection fraction also done. Cardiac stress and resting SPECT myocardial activity without segmental perfusion abnormality, computer derived ejection fraction is 68% with no regional wall motion abnormality, right ventricle is normal size and contractility. Conclusion: 1. The EKG portion of the Lexiscan Myoview is nondiagnostic. 2. No scintigraphic evidence of reversible ischemia seen, computer derived ejection is 68% with no regional wall motion abnormality, right ventricle is normal size and contractility. 3. Normal Lexiscan Myoview study.
--- NOTE | 2018-12-31 12:08 | CI_ITS ---
Cerebrovascular Exam Indications: 780.4 Dizziness and giddiness. IMPRESSIONS 1. The bilateral vertebral arteries are patent with normal antegrade flow. 2. Study suggests 50-69% stenosis(lower end of scale)involving the right internal carotid artery and the left internal carotid artery. History: Risk factors: Current tobacco use. Hypertension. Carotid duplex study. Complete study and Doppler flow study including spectral analysis, color and mead scale imaging. Height: Height: 175.3cm. Height: 69in. Weight: Weight: 74.8kg. Weight: 164.7lb. Body mass index: BMI: 24.4kg/m^2. Body surface area: BSA: 1.92m^2. Location: Vascular laboratory. Patient status: Outpatient. Tables: Arterial flow: + +--------+--------+ Location V tiarras V ed + +--------+--------+ Right CCA - proximal 62.9cm/s 18.9cm/s + +--------+--------+ Right CCA - distal 66cm/s 19.6cm/s + +--------+--------+ Right ECA 116cm/s -------- + +--------+--------+ Right ICA - proximal 149cm/s 39.3cm/s + +--------+--------+ Right ICA - mid 130cm/s 35.4cm/s + +--------+--------+ Right ICA - distal 124cm/s 36.1cm/s + +--------+--------+ Right vertebral 56.6cm/s -------- + +--------+--------+ Left CCA - proximal 84.9cm/s 16.5cm/s + +--------+--------+ Left CCA - distal 73.1cm/s 18.9cm/s + +--------+--------+ Left ECA 82.5cm/s -------- + +--------+--------+ Left ICA - proximal 193cm/s 46.2cm/s + +--------+--------+ Left ICA - mid 196cm/s 44.2cm/s + +--------+--------+ Left ICA - distal 164cm/s 46.2cm/s + +--------+--------+ Left vertebral 89.4cm/s -------- + +--------+--------+ Velocity ratios: + + + + + + Right, V sys Right, V ed Left, V sys Left, V ed + + + + + + Max ICA/dist CCA 2.26 2.01 2.68 2.44 + + + + + + (Report amended ) Electronically signed by: Poli Seo [id number]
--- NOTE | 2018-12-31 14:16 | HMH.ITSHM ---
Current Home Medications as stated by this patient Shayy Black or outside sales representative insurance. []celexa vitd b12 venrolin stilo amlodipine
== END ==
PROVIDERS: PCP Internal Medicine Adolescent Medicine; Visit Provider Internal Medicine Adolescent Medicine
DX: R07.9 Chest pain, unspecified (principal); R42 Dizziness and giddiness
CPT/HCPCS: 78452; 93017; 93880; A9502; J2785

== ENCOUNTER → 2019-01-08 09:25 | Outpatient (CLI) | payer MEDICARE, OTHER, SELFPAY ==
[2019-01-08 09:39] LABS: Blood Urea Nitrogen 18 mg/dL (7-18); Creatinine,Serum 1.09 mg/dL (0.55-1.02); Estimated Glomerular Filt Rate 50 ml/min (>60); GFR (African American) 61 ML/MIN (>60)
--- NOTE | 2019-01-08 09:52 | CT_ITS ---
CT angio coronary artery INDICATION: Carotid stenosis, bilateral neck pain, headache, dizziness ITS.REASON: STENOSIS OF CAROTID ARTERY,DIZZINESS ORDERING PHYSICIAN: Ephraim Lombardo MD PATIENT AGE: 68 years COMPARISON: 07/28/2013 TECHNIQUE: Axial images are obtained following the intravenous ministration 1 mL's of Optiray 350 contrast. Sagittal and coronal reformatted images are reviewed as well. All CT scans at the facility use one or more dose reduction, viz: automated exposure control, ma/kV adjustment per patient size (including targeted exams where dose is matched to indication, i.e. head), or iterative reconstruction technique. FINDINGS: There are mild atheromatous changes within the aortic arch and the proximal aspect of the great vessels. These findings have progressed slightly compared to the previous exam. Approximately 25% stenosis at the ostium of the right innominate artery. There is some eccentric soft plaque involving the proximal aspect of the right common carotid artery with approximately 20% narrowing. Approximately 40% stenosis involves the right subclavian artery distal to the vertebral origin. Mild amount of soft and calcific plaque present at the ostium of the left common carotid with approximately 25% narrowing. Mild amount of plaque at the right carotid bifurcation and bulb. There is 30% stenosis of the ostium of the right internal carotid artery at this region. There is a small ulcer along the posterior aspect of the proximal right ICA. This has developed since the previous exam. Atheromatous changes involve the left carotid bulb and proximal ICA with a area of stenosis at the proximal left ICA also approximately 30%. A small shallow ulcer is present at the left carotid bulb. The upper cervical portions of the ICAs are unremarkable. There does appear to be moderate to severe stenosis involving the ostium of the left vertebral artery which is the dominant vertebral. This is somewhat obscured by contrast within the overlying venous system. This area of narrowing is felt to be greater than 50%. The intracranial vessels have an unremarkable appearance. No evidence of aneurysm or arteriovenous malformation or large areas of occlusion. Nonvascular findings: Panlobular emphysematous changes are present with apical blebs/bulla more extensive on the right. No enhancing intracranial masses or large territorial infarctions evident. IMPRESSION: 1. Mild atheromatous changes of the aortic arch and great vessels which has slightly progressed compared to the previous exam. 2. Plaque at the right carotid bifurcation bulb and proximal ICA with 30% stenosis at the ostium of the right ICA. There is an ulcer along the posterior aspect of the right carotid bulb slightly deep measuring 3 mm in depth. 3. 30% stenosis of the ostium of the left internal carotid artery with a shallow ulcer at the bulb on the left. 4. Severe stenosis of the ostium of the left vertebral artery which is the dominant vertebral artery. The right vertebral artery has an Unremarkable appearance but is smaller.
== END ==
PROVIDERS: Visit Provider Internal Medicine Adolescent Medicine
DX: R42 Dizziness and giddiness (principal); I65.23 Occlusion and stenosis of bilateral carotid arteries; R07.9 Chest pain, unspecified
CPT/HCPCS: 36415; 75574; 82565; 84520; Q9967

== ENCOUNTER → 2019-03-02 13:41 | Outpatient (CLI) | payer MEDICARE, OTHER, SELFPAY ==
--- NOTE | 2019-03-02 14:08 | CT_ITS ---
CT chest wo/w con HISTORY: ITS.REASON: SOA COUGH ORDERING PHYSICIAN: Ephraim Lombardo MD PATIENT AGE: 68 years COMPARISON: None Technique: Axial images obtained without and with 75 mL's Optiray 350.. Sagittal, and coronal reformatted images are also generated and reviewed. All CT scans at the facility use one or more dose reduction, viz: automated exposure control, ma/kV adjustment per patient size (including targeted exams where dose is matched to indication, i.e. head), or iterative reconstruction technique. FINDINGS: No mediastinal or hilar mass or adenopathy. Prominent calcified nodes are present in the right anterior paratracheal region. Coronary artery calcifications and stents are noted. Normal heart size without evidence of pericardial effusion. No evidence of aortic aneurysm or dissection. Unremarkable central pulmonary arteries. There are severe bullous emphysematous changes with panlobular emphysema with scattered calcified granulomas. There is a 4 mm subpleural nodule left upper lobe series 3 #24. There are mild atelectatic fibrotic changes in the left lung base anteriorly. No central obstructing lesions. No lobar consolidation or collapse pleural effusion. Subpleural 5 mm nodule present in the right middle lobe anteriorly axial image #58. Minimal patchy density along minor fissure inferiorly on the right with minimal nodularity. There is a small hiatal hernia. Upper abdominal images show postcholecystectomy changes. There is minimal wedging of T8 which appears chronic. IMPRESSION: 1. Severe bullous emphysematous changes with centrilobular and panlobular 2. No acute finding. 3. Old granulomatous disease with a few scattered subpleural nodular opacities largest in the right middle lobe 5 mm. Recommend 12 month follow-up emphysema
--- NOTE | 2019-03-02 14:13 | HMH.ITSHM ---
Current Home Medications as stated by this patient Shayy Black or insurance follow up representative. []BRILINTA,LOSARTAIN,ATORVASTATIN,METOPROLOL,VIBRYLA,STIOTTO, ASPIRIN OMEPRAZOLE,ALLEGY TAB,FIBER, VIT D,B-12,SISSORBIDE,RAXEXA
== END ==
PROVIDERS: PCP Internal Medicine Adolescent Medicine; Visit Provider Internal Medicine Adolescent Medicine
DX: R06.02 Shortness of breath (principal); R05 Cough
CPT/HCPCS: 71270; Q9967

== ENCOUNTER 2019-03-09 14:14 | Outpatient (RCR) | payer MEDICARE, OTHER, SELFPAY | END 2019-05-07 13:13 | disposition home or self-care (01) | LOC: PT 14:14 | PROVIDERS: Visit Provider Internal Medicine | DX: Z95.5 Presence of coronary angioplasty implant and graft (principal); R00.1 Bradycardia, unspecified; R06.02 Shortness of breath; I10 Essential (primary) hypertension; I25.10 Atherosclerotic heart disease of native coronary artery without angina pectoris ==

== ENCOUNTER → 2019-04-15 07:55 | Outpatient (CLI) | payer MEDICARE, OTHER, SELFPAY ==
--- NOTE | 2019-04-15 07:56 | AS_ITS ---
Renal Arterial Duplex Indications: 405.91 Unspecified renovascular hypertension. IMPRESSIONS 1. Greater than 60% stenosis involving the right renal artery 2. Greater than 60% stenosis involving the left renal artery. Possible left renal mass versus dromedary hump. suggest CT or MRI of kidneys without and with contrast History: Risk factors: Hypertension. Coronary artery disease. Complete renal arterial duplex. Duplex scan and Doppler flow study including spectral analysis, color and mead scale imaging. Height: Height: 175.3cm. Height: 69in. Weight: Weight: 78.9kg. Weight: 173.6lb. Body mass index: BMI: 25.7kg/m^2. Body surface area: BSA: 1.97m^2. Location: Vascular laboratory. Patient status: Outpatient. Tables: Arterial flow: + +--------+--------+ Location V sys V ed + +--------+--------+ Right renal - proximal 159cm/s 24.3cm/s + +--------+--------+ Right renal - mid 184cm/s 32.4cm/s + +--------+--------+ Right renal - distal 146cm/s 19.8cm/s + +--------+--------+ Left renal - proximal 287cm/s 48.7cm/s + +--------+--------+ Left renal - mid 219cm/s 44cm/s + +--------+--------+ Left renal - distal 99.9cm/s 25.2cm/s + +--------+--------+ Right renal-origin 240cm/s 39.4cm/s + +--------+--------+ Left renal-origin 231cm/s 42.3cm/s + +--------+--------+ Aorta-prox 69cm/s -------- + +--------+--------+ Renal anatomy: + +-----+-----+ Left Right + +-----+-----+ Long axis 8.8cm 8.9cm + +-----+-----+ Short axis 6.4cm 7.4cm + +-----+-----+ Cortical thickness 1.4cm 1.1cm + +-----+-----+ Velocity ratios: + +-----+ V sys + +-----+ Right renal/aortic 3.5 + +-----+ Left renal/aortic 4.2 + +-----+ (Report amended ) Electronically signed by: Gonzalo Elizabeth [id number]
== END ==
PROVIDERS: PCP Internal Medicine Adolescent Medicine; Visit Provider Physician Assistant
DX: I10 Essential (primary) hypertension (principal)
CPT/HCPCS: 93976

== ENCOUNTER 2019-07-28 08:19 | Observation (INO) ==
--- NOTE | 2019-07-28 08:32 | Emergency Department Note ---
ED Disposition Clinical Impression: Precordial chest pain Disposition: Still a Patient Condition on Discharge: Fair Referrals: Provider,Referral, [Referring] - - Critical Care Critical Care Time: No Attestation: On , the high probability of a clinically significant, sudden or life threatening deterioration of the following system(s) required my full and direct attention, intervention and personal management. The time I documented below is in addition to time spent performing reported procedures but includes the following listed in this critical care notation. Medical Decision Making - Noble Inquiry Pt receiving controlled substance: Yes Noble was queried for this patient: No Reason not queried -: Emergent pt cond-no time Risks and benefits of using a controlled substance: were not discussed with pt by me Vital Signs: 07/28/19 08:20 07/28/19 08:58 Temperature 98.8 F Temperature Source Oral Pulse Rate [Right Radial] 64 72 Respiratory Rate 20 18 Blood Pressure [Right Arm] 129/95 H 156/71 H Blood Pressure Mean [Right Arm] 106 99 Blood Pressure Source [Right Arm] Automatic Cuff Blood Pressure Position [Right Arm] Sitting Supine 02 Sat by Pulse Oximetry 96 94 L Oxygen Delivery Method Room Air Room Air - Lab Data Lab Results 07/28/19 08:40: WBC 11.8 H, RBC 4.77, Hgb 13.9, Hct 44.1, MCV 92.5, MCH 29.1, MCHC 31.5 L, RDW 14.1, Plt Count 312, MPV 7.9, Neut % (Auto) 81.7 H, Lymph % (Auto) 14.0, Dawson % (Auto) 4.1, Eos % (Auto) 0.0 L, Baso % (Auto) 0.1, Neut # (Auto) 9.6 H, Lymph # (Auto) 1.7, Dawson # (Auto) 0.5, Eos # (Auto) 0.0, Baso # (Auto) 0.0 07/28/19 08:40: Sodium 140, Potassium 4.4, Chloride 103, Carbon Dioxide 25, Anion Gap 16.4 H, BUN 14, Creatinine 1.11 H, Estimated Creat Clear 61, Estimated GFR 49 L, Est GFR ( Amer) 59, Glucose 108 H, Calcium 9.5, Troponin I < 0.02 Result diagrams: 07/28/19 08:40 07/28/19 08:40 Orders (Tests/Meds): ED MEDICATIONS Discontinued Medications Generic Name Dose Route Start Last Admin Trade Name Enedina PRN Reason Stop Dose Admin Albuterol/Ipratropium 3 ml 07/28/19 08:37 07/28/19 08:42 Duoneb 3ml Neb IH 07/28/19 08:38 3 ml ONCE ONE Administration Aspirin 324 mg 07/28/19 08:37 07/28/19 08:42 Aspirin 81mg Chewable Tablet PO 07/28/19 08:38 324 mg ONCE ONE Administration Morphine Sulfate 2 mg 07/28/19 08:37 07/28/19 08:42 Morphine 2mg/Ml Syringe IV 07/28/19 08:38 2 mg ONCE ONE Administration Morphine Sulfate 4 mg 07/28/19 08:50 07/28/19 08:52 Morphine 4mg/Ml Syringe IV 07/28/19 08:51 4 mg ONCE ONE Administration Nitroglycerin 0.4 mg 07/28/19 08:37 07/28/19 08:42 Nitrostat 0.4mg Sl Tablet SL 07/28/19 08:38 0.4 mg ONCE ONE Administration Ondansetron HCl 4 mg 07/28/19 08:37 07/28/19 08:43 Zofran 4mg/2ml Vial IV 07/28/19 08:38 4 mg ONCE ONE Administration ORDERS Category Date Time Status Troponin I Timed Lab 07/28/19 11:30 Ordered - Radiology Data #1 Image(s): Chest Image Reviewed: Yes I reviewed the patient's radiology image calc suprahilar node, granulomas. NAD. - ECG Data Tracing #1 EKG interpreted by Michel Haney MD: Rhythm: sinus Rate: 61 Deary: normal Ectopy: none Conduction: normal ST Segment Changes: Nonspecific, inferior and lateral T Wave Changes: none Q Waves: none No evidence of acute ischemia or injury Prior electrocardiagrams reviewed. No change from prior tracings. - Physician Consults Physician Consulted: Cely Rothman Time: 08:40 Reason -: Cardiology Eval/Care Comment/Response: 10:25 AM: Lorna has spoken with Dr. Salguero who is going to take the patient to the [facility] for a heart cath. Patient is agreeable. Additional Consult: Munira Time: 10:00 Reason -: Pt condition Comment/Response: Defers to cardiology for plan Medical Decision Narrative: 8:40 AM: Cardiology service called. 8:55 AM: Seen by cardiology. prior results: chest cta: FINDINGS: No evidence of aortic aneurysm or dissection. No evidence of pulmonary embolus there are scattered small mediastinal and hilar lymph nodes which are slightly more prominent compared to the previous exam. Some lymph nodes contain calcification. Subcarinal node measures up to 1.8 x 1.2 cm. Coronary artery calcifications/stents are noted. There is diffuse panlobular and centrilobular emphysema with old granulomatous disease. No lobar consolidation or collapse. There are degenerative changes in the thoracic spine. Small hiatal hernia is noted. IMPRESSION: 1. No evidence of pulmonary embolus or aortic aneurysm or dissection. 2. Centrilobular and panlobular emphysema 3. Slightly prominent mediastinal and hilar lymph nodes slightly more prominent when compared to the previous exam Dictated By: Gonzalo Elizabeth MD Signed By: <Electronically signed by Gonzalo Elizabeth MD in [place]> 03/13/[address]: FINDINGS: No mediastinal or hilar mass or adenopathy. Prominent calcified nodes are present in the right anterior paratracheal region. Coronary artery calcifications and stents are noted. Normal heart size without evidence of pericardial effusion. No evidence of aortic aneurysm or dissection. Unremarkable central pulmonary arteries. There are severe bullous emphysematous changes with panlobular emphysema with scattered calcified granulomas. There is a 4 mm subpleural nodule left upper lobe series 3 #24. There are mild atelectatic fibrotic changes in the left lung base anteriorly. No central obstructing lesions. No lobar consolidation or collapse pleural effusion. Subpleural 5 mm nodule present in the right middle lobe anteriorly axial image #58. Minimal patchy density along minor fissure inferiorly on the right with minimal nodularity. There is a small hiatal hernia. Upper abdominal images show postcholecystectomy changes. There is minimal wedging of T8 which appears chronic. IMPRESSION: 1. Severe bullous emphysematous changes with centrilobular and panlobular 2. No acute finding. 3. Old granulomatous disease with a few scattered subpleural nodular opacities largest in the right middle lobe 5 mm. Recommend 12 month follow-up emphysema Dictated By: Gonzalo Elizabeth MD Signed By: <Electronically signed by Gonzalo Elizabeth MD in [facility]> 03/03/[address]: IMPRESSION: 1. Mild atheromatous changes of the aortic arch and great vessels which has slightly progressed compared to the previous exam. 2. Plaque at the right carotid bifurcation bulb and proximal ICA with 30% stenosis at the ostium of the right ICA. There is an ulcer along the posterior aspect of the right carotid bulb slightly deep measuring 3 mm in depth. 3. 30% stenosis of the ostium of the left internal carotid artery with a shallow ulcer at the bulb on the left. 4. Severe stenosis of the ostium of the left vertebral artery which is the dominant vertebral artery. The right vertebral artery has an Unremarkable appearance but is smaller. Dictated By: Gonzalo Elizabeth MD Signed By: <Electronically signed by Gonzalo Elizabeth MD in [facility]> 01/09/19 0718 heart cath: ANGIOGRAPHIC RESULTS: 1. The left main artery has a normal ostium with the stent in the mid segment extending into the LAD which is widely patent with excellent distal and proximal transitioning. 2. The left anterior descending artery has a stent originating off the left main artery which extends through its mid segment. The stent is widely patent with no in-stent restenosis thrombosis etc. There is excellent transitioning from the stent into the burns paiute vessel. The first diagonal artery has a stent in the ostial proximal segment which is widely patent with excellent BENJA-3 flow down the vessel. 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 The circumflex artery is a nondominant vessel and has a very proximal 50% stenosis 4. The right coronary artery is a very large dominant vessel and has an ostial 50% stenosis which does not dampening with catheter insertion. The remaining vessel has diffuse 20 and 30% nonflow limiting stenoses 5. The GAY ventriculogram reveals normal 65% 6. The left ventricular end-diastolic pressure mildly elevated at 20 mmHg IMPRESSION: 1. Widely patent stents as described above with no mechanical abnormality and excellent BENJA-3 flow down all vessels 2. Normal ejection fraction 3. Mildly elevated LVEDP 4. 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 We'll add Ranexa and long-acting nitrates 2. Continue with dual antiplatelet therapy 3. Continue standard medical management Dictated By: Gordo Salguero MD Signed By: <Electronically signed by Gordo Salguero MD in [facility]> 02/23/19 1241 heart cath: ANGIOGRAPHIC RESULTS: 1. The left main artery has mild distal luminal irregularities 2. The left anterior descending artery has a hazy appearance in the ostial proximal segment suggesting soft atheromatous plaque. The stenosis was angiographically indeterminant and could range anywhere from 20% to 90% based on the hazy appearance. Distal to a first diagonal artery there is additional 30% stenoses. The first diagonal artery has an ostial 90% stenosis. A fistula is identified from the mid LAD going into the left pulmonary artery. The fistula is small to moderate in size 3. The circumflex artery is a nondominant vessel and has mild ostial plaque with a proximal 30-40% stenosis and a 30-40% stenosis and a small first obtuse marginal artery 4. The right coronary artery is a large dominant vessel and has an ostial 50% stenosis with no dampening or gradient upon cannulation with a 5 Croatian diagnostic catheter. The proximal and midportion of the right coronary artery has diffuse 30% stenoses 5. The GAY ventriculogram reveals normal 65% 6. The left ventricular end-diastolic pressure 20 mmHg IMPRESSION: 1. Angiographically ambiguous ostial proximal LAD disease which proved to be severely stenosed in the ostial LAD as well as moderate atheromatous plaque in the distal left main artery which was directed away from the circumflex artery. 2. Successful stenting of a moderately atheromatous plaque left main artery extending into the LAD from the ostial segment through the mid segment followed by successful bifurcating stenting into the large first diagonal artery. Severe atheromatous plaque reduced to 0% with 3 drug-eluting stents as described above 3. 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 Normal ejection fraction 5. Mildly elevated LVEDP 6. Persistent moderate disease in the ostial dominant right coronary PLAN: 1. Brilinta and aspirin 2. LDL less than 55 3. Avoidance of tobacco products 4. Cardiac rehabilitation 5. Aggressive risk factor modification 6. Patient should have workup for secondary hypertension such as renal duplex. During the cardiac catheterization her blood pressure approach 240 mmHg systolic which required large doses of hydralazine to control. Dictated By: Gordo Salguero MD Signed By: <Electronically signed by Gordo Salguero MD in [facility]> 02/16/19 1130 General Adult HPI - General Chief complaint: Chest Pain Stated complaint: CHEST PAIN Time Seen by Provider: 07/28/19 08:31 - History of Present Illness HPI narrative: Complains of chest pain. Says that she has an ache in her left inframammary and left anterior chest that awaken her from sleep at 6 AM. It radiates into her neck, left arm, and back. Associated with shortness of breath and slight cold sweat. Denies nausea. Denies having any previous similar pains. She says that she has 3 cardiac stents but symptoms at that time were more fatigue rather than any chest pain. She says she also has a previous history of a pneumothorax. Nothing seems to make the pain worse or better. She took ibuprofen for the pain this morning. Patient is a smoker. She drove herself to the emergency department. - Related Data Home Medications Medication Instructions Recorded Confirmed Aspirin [Aspir 81] 81 mg PO DAILY 01/30/19 07/28/19 cetirizine 10 mg tablet 10 mg PO DAILY tab 02/11/19 07/28/19 omeprazole 40 mg capsule,delayed 40 mg PO DAILY 02/11/19 07/28/19 release Atorvastatin Calcium [Atorvastatin 10 mg PO DAILY 03/13/19 07/28/19 10mg Tab] Clopidogrel Bisulfate [Plavix 75mg 75 mg PO DAILY 03/13/19 07/28/19 Tab] metoprolol succinate ER 50 mg 25 mg PO DAILY tab 04/19/19 07/28/19 tablet,extended release 24 hr citalopram 40 mg tablet 40 mg PO DAILY tab 04/27/19 07/28/19 losartan 50 mg tablet 50 mg PO DAILY 05/11/19 07/28/19 Allergies Allergy/AdvReac Type Severity Reaction Status Date / Time No Known Allergies Allergy Verified 05/11/19 13:44 [facility] History - Hepatitis A Screen Attestation statement:: This patient has been screened for Hepatitis A risk factors. I have reviewed the patient's past medical history: Yes Medical History: Reports:: Chronic Obstructive Pulmonary Disease (COPD), Gastroesophageal Reflux Disease(GERD), Lung Disease Denies:: Cancer, Diabetes Mellitus Type 1, Diabetes Mellitus Type 2, Internal Pacemaker, MRSA, Seizures Other Medical History: Reports: Fibromyalgia Other Surgeries: Yes: Angiogram, Cardiac Catheterization, Cholecystectomy, Coronary Stent, Hysterectomy-Total. No: Pacemaker Amputation: No Fractures: No - Social History Smoking Status: Current every day smoker Tobacco Type: cigarettes # Packs/Day (cigarettes): 1 #Yrs smoked (if former smoker): 53 Alcohol Intake: never Substance Use Type: denies use Occupational Status: employed Housing: house Household Members: spouse, children Family Hx:: Heart Attack, Hypertension, Coronary Artery Disease Comment: Father- of [email or web address]. Mother-CHF. Brother- of [email or web address]@[id number] ROS Obtained: Yes All systems reviewed & no additional complaints - Constitutional Constitutional: Denies fever(s) - Cardiovascular Cardiovascular: Reports chest pain, Reports diaphoresis, Reports radiating jaw, neck or arm pain - Respiratory Respiratory: Yes dyspnea - Gastrointestinal Gastrointestingal: Denies: abdominal pain, nausea, vomiting Physical Exam - General General appearance: alert, in no apparent distress - Head Head exam: atraumatic, normocephalic - Eye Eye exam: Present: normal appearance, EOMI - ENT ENT exam: Present: mucous membranes moist - Neck Neck exam: Present: normal inspection, trachea midline - Chest Chest inspection: Present: normal inspection, symmetric chest wall rise. Absent: tenderness - Respiratory Respiratory exam: Present: normal lung sounds bilaterally. Absent: respiratory distress - Cardiovascular Cardiovascular exam: Present: regular rate, normal rhythm, normal heart sounds - Abdominal Exam Abdominal exam: Present: soft, normal bowel sounds. Absent: distention, tenderness, guarding, rebound - Extremities Exam Extremities exam: Present: normal inspection. Absent: pedal edema - Neurological Exam Neurological exam: Present: alert, oriented X3 - Psychiatric Psychiatric exam: Present: normal affect, normal mood - Skin Skin exam: Present: warm, dry
[2019-07-28 09:09] LABS: Basophils % 0.1 % (0.1-2.0); Hematocrit 44.1 % (37.0-47.0); Hemoglobin 13.9 g/dL (12.2-16.2); Lymphocytes # 1.7 K/mm3 (0.7-4.5); Mean Corpuscular HGB Conc 31.5 g/dL (31.8-35.4); Mean Corpuscular Volume 92.5 fl (81-99); Mean Platelet Volume 7.9 fl (7.4-10.4); Monocytes # 0.5 K/mm3 (0.1-1.0); Monocytes % 4.1 % (1.7-9.3); Neutrophils # 9.6 K/mm3 (1.8-7.8); Neutrophils % 81.7 % (37.0-80.0); Platelet Count 312 K/mm3 (142-424); Red Blood Count 4.77 M/mm3 (4.20-5.40); Red Cell Distribution Width 14.1 % (11.5-17.5); White Blood Count 11.8 K/mm3 (4.8-10.8)
[2019-07-28 09:28] LABS: Anion Gap 16.4 mEq/L (5-15); Blood Urea Nitrogen 14 mg/dL (7-18); Calcium 9.5 mg/dL (8.5-10.1); Carbon Dioxide 25 mmol/L (21.0-32.0); Chloride 103 mmol/L (98-107); Glucose 108 mg/dL (74-106); Sodium 140 mmol/L (136-145)
--- NOTE | 2019-07-28 12:43 | Consult Report ---
History of Present Illness Consult date: 07/28/19 Requesting physician: Michel Haney Consult reason: chest pain Chief complaint: Chest pain ans shortness of breath Additional Medical History:: 1. Unstable Angina (07/28/19) a. Troponin negative 2. Coronary Artery Disease a. Left heart catheterization (02/23/19) b. Widely patent stents, normal ejection fraction, mildly elevated LVEDP and stent arteritis. c. Left heart catheterization (02/16/19). Drug-eluting stent deployment to the proximal LAD extending into the mid LAD, drug-eluting stent deployment to first diagonal artery and drug-eluting stent to the mid to distal left main artery. 3. COPD a. Smokes 1/2 -1 ppd. b. Increase shortness of breath for past few days. 4. Renovascular hypertension. 5. Hyperlipidemia. a. LDL 142 (02/12) b. Statin therapy. 6. DIRK a. Bilateral ICA 50-69% History of present illness: 69-year-old female presented to ED this morning for left sided chest pain. Patient stated the left-sided chest pain woke her up. Patient describes pain as excruciating pain which originates under the left breast and radiates to the left side neck. Patient complains of increased shortness of breath with this episode. She states on pain scale 10/10. Patient did receive 1 nitro glycerin sublingual and 4 mg of morphine IV. Patient stated her pain has not been relieved. Patient denies nausea vomiting or fever. Patient denies numbness or tingling of the lower extremities. No swelling noted of the lower extremities. Patient does have history of coronary artery disease. In 02/12, patient underwent left heart catheterization which revealed widely patent stents to the LAD, first diagonal artery and mid to distal left main artery. Last echocardiogram, (02/12) revealed EF of 55% with no wall motion abnormality. Patient does have history of COPD. Patient smokes less than 1 pack/day. Initial cardiac work-up in the ED was performed. ECG revealed sinus rhythm with non-specific ST and T wave abnormality with a heart rate of 61 bpm. Chest x-ray revealed no acute findings other than chronic COPD. Cardiac serial enzymes were performed. Troponin x1 negative. Discussed with patient the risk and benefits of left heart catheterization with right groin or wrist access. Patient verbalized understanding and was agreeable to left heart Catheterization. Dr. Haney notified and agreeable to plan of care. Case was discussed with Dr. Salguero. Thank you for letting Cardiology participate in the care of this pt. [facility] History Medical History: Reports:: Chronic Obstructive Pulmonary Disease (COPD), Gastroesophageal Reflux Disease(GERD), Lung Disease Denies:: Cancer, Diabetes Mellitus Type 1, Diabetes Mellitus Type 2, Internal Pacemaker, MRSA, Seizures *Have you ever received a pneumonia vaccine?: No *Have you received a flu vaccine this season?: No Other Medical History: Reports: Fibromyalgia Other Surgeries: Yes: Angiogram, Cardiac Catheterization, Cholecystectomy, Coronary Stent, Hysterectomy-Total. No: Pacemaker Amputation: No Fractures: No - *Social History Smoking Status: Current every day smoker Tobacco Type: cigarettes # Packs/Day (cigarettes): 1 #Yrs smoked (if former smoker): 53 Alcohol Intake: never Substance Use Type: denies use *Occupational Status:: employed Housing: house Household Members: spouse, children *Travel in the last 8 weeks: None Family Hx:: Heart Attack, Hypertension, Coronary Artery Disease Meds Home Medications Medication Instructions Recorded Confirmed Type Aspirin [Aspir 81] 81 mg PO DAILY 01/30/19 07/28/19 History cetirizine 10 mg tablet 10 mg PO DAILY tab 02/11/19 07/28/19 History omeprazole 40 mg capsule,delayed 40 mg PO DAILY 02/11/19 07/28/19 History release Atorvastatin Calcium [Atorvastatin 10 mg PO DAILY 03/13/19 07/28/19 History 10mg Tab] Clopidogrel Bisulfate [Plavix 75mg 75 mg PO DAILY 03/13/19 07/28/19 History Tab] metoprolol succinate ER 50 mg 25 mg PO DAILY tab 04/19/19 07/28/19 History tablet,extended release 24 hr citalopram 40 mg tablet 40 mg PO DAILY tab 04/27/19 07/28/19 History losartan 50 mg tablet 50 mg PO DAILY 05/11/19 07/28/19 History Allergies Allergy/AdvReac Type Severity Reaction Status Date / Time No Known Allergies Allergy Verified 05/11/19 13:44 Review of Systems - Review of Systems Review of systems:: pertinent systems reviewed and negative unless documented below - Constitutional Reports fatigue, Reports lack of energy, Reports weakness - *Cardiovascular Reports chest pain, Reports chest pain at rest, Reports chest pain with activity, Reports shortness of breath, Reports shortness of breath with activity, Reports radiating jaw, neck or arm pain, Denies irregular heart rhythm, Denies fainting - *Respiratory Reports shortness of breath, Reports shortness of breath with activity, Denies chest congestion, Denies cough - *Gastrointestinal Denies abdominal pain, Denies difficulty swallowing - *Musculoskeletal Denies abnormal walking - Integumentary/Breasts Denies rash - *Neurologic Denies abnormal walking, Denies dizziness, Denies headache(s), Denies seizure- like activity - Psychiatric Denies anxiety, Denies behavioral changes, Denies thoughts of hurting/killing yourself - Endocrine Denies cold intolerance, Denies rapid, pounding, or irregular heartbeat Exam Vital signs and Labs for Last 24 Hours: Temp Pulse Resp BP Pulse Ox 98.2 F 70 16 138/81 94 L 07/28/19 10:30 07/28/19 10:30 07/28/19 10:30 07/28/19 10:30 07/28/19 08:58 Laboratory Results - last 24 hr 07/28/19 08:40: WBC 11.8 H, RBC 4.77, Hgb 13.9, Hct 44.1, MCV 92.5, MCH 29.1, MCHC 31.5 L, RDW 14.1, Plt Count 312, MPV 7.9, Neut % (Auto) 81.7 H, Lymph % (Auto) 14.0, [place] % (Auto) 4.1, Eos % (Auto) 0.0 L, Baso % (Auto) 0.1, Neut # (Auto) 9.6 H, Lymph # (Auto) 1.7, [place] # (Auto) 0.5, Eos # (Auto) 0.0, Baso # (Auto) 0.0 07/28/19 08:40: Sodium 140, Potassium 4.4, Chloride 103, Carbon Dioxide 25, Anion Gap 16.4 H, BUN 14, Creatinine 1.11 H, Estimated Creat Clear 61, Estimated GFR 49 L, Est GFR ( Amer) 59, Glucose 108 H, Calcium 9.5, Troponin I < 0.02 I & O for Last 24 hours: Intake & Output 07/25/19 07/26/19 07/27/19 07/28/19 23:59 23:59 23:59 23:59 Weight 174 lb - Constitutional mild distress, thin - *Routine HEENT Exam Head: Present: normocephalic ENT: Present: mucous membranes moist - *Routine Neck Exam Present: supple, full ROM, normal carotid upstroke. Absent: JVD, carotid bruit, lymphadenopathy - Routine Chest/Breast/Axilla Exam Chest wall: Present: tenderness. Absent: mass, pacemaker Axillae: Absent: lymphadenopathy - *Routine Respiratory Exam Present: CTA bilaterally. Absent: respiratory distress, wheezes, crackles - *Routine Cardiovascular Exam Present: RRR, Normal S1, Normal S2. Absent: murmur, gallop, rubs, click, irregular rhythm, irregularly irregular, JVD - *Routine Abdominal Exam Present: soft, normoactive bowel sounds. Absent: tenderness, guarding - *Routine Extremities Exam Present: full ROM, pulses intact, normal capillary refill. Absent: cyanosis, clubbing, edema - Routine Back/Spine/Pelvis Exam Back/Spine: Present: full ROM. Absent: CVA tenderness - *Routine Skin Exam Present: intact, dry, warm, normal turgor. Absent: cyanosis, erythema, rash - *Routine Neurological Exam Present: alert, oriented X3, CN II-XII intact, normal reflexes, moving all extremities, normal tone, normal speech. Absent: tremors - Routine Psychiatric Exam Present: normal affect, normal thought process, cooperative. Absent: suicidal ideation, anxious Assessment and Plan (1) Unstable angina Current visit: Yes Status: Acute Category: Medical Code(s): I20.0 - Unstable angina (2) CAD (coronary artery disease) Current visit: No Status: Chronic Qualifiers: Coronary Disease-Associated Artery/Lesion type: [place] artery [place] vs. transplanted heart: [place] heart Associated angina: without angina Qualified Code(s): I25.10 - Atherosclerotic heart disease of [place] coronary artery without angina pectoris Category: Medical Code(s): I25.10 - Atherosclerotic heart disease of [place] coronary artery without angina pectoris (3) COPD (chronic obstructive pulmonary disease) Current visit: No Status: Chronic Qualifiers: COPD type: unspecified COPD Qualified Code(s): J44.9 - Chronic obstructive pulmonary disease, unspecified Category: Medical Code(s): J44.9 - Chronic obstructive pulmonary disease, unspecified (4) Carotid artery stenosis Current visit: No Status: Chronic Qualifiers: Laterality: bilateral Qualified Code(s): I65.23 - Occlusion and stenosis of bilateral carotid arteries Category: Medical Code(s): I65.29 - Occlusion and stenosis of unspecified carotid artery (5) Dyspnea Current visit: No Status: Chronic Qualifiers: Dyspnea type: shortness of breath Qualified Code(s): R06.02 - Shortness of breath; R06.00 - Dyspnea, unspecified; R06.01 - Orthopnea Category: Medical Code(s): R06.00 - Dyspnea, unspecified (6) HLD (hyperlipidemia) Current visit: No Status: Chronic Qualifiers: Hyperlipidemia type: mixed hyperlipidemia Qualified Code(s): E78.2 - Mixed hyperlipidemia Category: Medical Code(s): E78.5 - Hyperlipidemia, unspecified (7) Hypertension Current visit: No Status: Chronic Qualifiers: Hypertension type: renovascular hypertension Qualified Code(s): I15.0 - Renovascular hypertension Category: Medical Code(s): I10 - Essential (primary) hypertension (8) Stented coronary artery Current visit: No Status: Chronic Category: Surgical Code(s): Z95.5 - Presence of coronary angioplasty implant and graft - Assessment and plan all Dx Assessment and Plan for all problems:: Plan: 1. Schedule left heart catheterization today, due to unstable angina and shortness of breath. 2. Tobacco cessation advised and counseled. 3. Will defer medication changes until Left heart catheterization is completed. 4. LDL goal<55. Pt is on a statin. 5. Continue medication regimen as prescribed by attending physician. 6. Notify Cardiology of any changes to pt's condition.
--- NOTE | 2019-07-28 15:51 | History & Physical Report ---
*Admission Date: 07/28/19 *Chief complaint: Chest pain - angina *History of present illness: 69-year-old female presented to ED this morning for left sided chest pain. Patient stated the left-sided chest pain woke her up. Patient describes pain as excruciating pain which originates under the left breast and radiates to the left side neck. Patient complains of increased shortness of breath with this episode. She states on pain scale 10/10. Patient did receive 1 nitro glycerin sublingual and 4 mg of morphine IV. Patient stated her pain has not been relieved. Patient denies nausea vomiting or fever. Patient denies numbness or tingling of the lower extremities. No swelling noted of the lower extremities. Patient does have history of coronary artery disease. In 02/12, patient underwent left heart catheterization which revealed widely patent stents to the LAD, first diagonal artery and mid to distal left main artery. Last echocardiogram, (02/12) revealed EF of 55% with no wall motion abnormality. Patient does have history of COPD. Patient smokes less than 1 pack/day. Initial cardiac work-up in the ED was performed. ECG revealed sinus rhythm with non-specific ST and T wave abnormality with a heart rate of 61 bpm. Chest x-ray revealed no acute findings other than chronic COPD. Cardiac serial enzymes were performed. Troponin x1 negative. Above per cardiology... agree with above [facility] History I have reviewed the patient's past medical history: Yes Medical History: Reports:: Chronic Obstructive Pulmonary Disease (COPD), Coronary Artery Disease, Gastroesophageal Reflux Disease(GERD), Hyperlipidemia, Hypertension, Lung Disease Denies:: Cancer, Diabetes Mellitus Type 1, Diabetes Mellitus Type 2, Internal Pacemaker, MRSA, Seizures *Have you ever received a pneumonia vaccine?: Yes *Have you received a flu vaccine this season?: No Other Medical History: Reports: Fibromyalgia Other Surgeries: Yes: Angiogram, Cardiac Catheterization, Cholecystectomy, Coronary Stent, Hysterectomy-Total. No: Pacemaker Amputation: No Fractures: No - *Social History Educational Level: Attended College Smoking Status: Current every day smoker Tobacco Type: cigarettes # Packs/Day (cigarettes): 1 #Yrs smoked (if former smoker): 53 Alcohol Intake: never Substance Use Type: denies use *Occupational Status:: employed Housing: house Household Members: spouse, children *Travel in the last 8 weeks: None Family Hx:: Cancer, Coronary Artery Disease, Heart Attack, Hyperlipidemia, Hypertension, Stroke, Thyroid Disorder Review of Systems - Review of Systems Review of systems:: pertinent systems reviewed and negative unless documented below - *Neurologic Reports weakness, Denies abnormal walking, Denies behavioral changes, Denies dizziness, Denies headache(s), Denies seizure-like activity, Denies fainting Meds Home Medications Medication Instructions Recorded Confirmed Type Aspirin [Aspir 81] 81 mg PO DAILY 01/30/19 07/28/19 History cetirizine 10 mg tablet 10 mg PO DAILY tab 02/11/19 07/28/19 History omeprazole 40 mg capsule,delayed 40 mg PO DAILY 02/11/19 07/28/19 History release Atorvastatin Calcium [Atorvastatin 10 mg PO DAILY 03/13/19 07/28/19 History 10mg Tab] Clopidogrel Bisulfate [Plavix 75mg 75 mg PO DAILY 03/13/19 07/28/19 History Tab] metoprolol succinate ER 50 mg 25 mg PO DAILY tab 04/19/19 07/28/19 History tablet,extended release 24 hr citalopram 40 mg tablet 40 mg PO DAILY tab 04/27/19 07/28/19 History losartan 50 mg tablet 50 mg PO DAILY 05/11/19 07/28/19 History Allergies Allergy/AdvReac Type Severity Reaction Status Date / Time No Known Allergies Allergy Verified 05/11/19 13:44 Exam Vital signs and Labs for Last 24 Hours: Temp Pulse Resp BP Pulse Ox 98.0 F 55 L 18 106/53 L 92 L 07/28/19 15:46 07/28/19 15:46 07/28/19 15:46 07/28/19 15:46 07/28/19 15:46 Laboratory Results - last 24 hr 07/28/19 08:40: WBC 11.8 H, RBC 4.77, Hgb 13.9, Hct 44.1, MCV 92.5, MCH 29.1, MCHC 31.5 L, RDW 14.1, Plt Count 312, MPV 7.9, Neut % (Auto) 81.7 H, Lymph % (Auto) 14.0, [place] % (Auto) 4.1, Eos % (Auto) 0.0 L, Baso % (Auto) 0.1, Neut # (Auto) 9.6 H, Lymph # (Auto) 1.7, [place] # (Auto) 0.5, Eos # (Auto) 0.0, Baso # (Auto) 0.0 07/28/19 08:40: Sodium 140, Potassium 4.4, Chloride 103, Carbon Dioxide 25, Anion Gap 16.4 H, BUN 14, Creatinine 1.11 H, Estimated Creat Clear 61, Estimated GFR 49 L, Est GFR ( Amer) 59, Glucose 108 H, Calcium 9.5, Troponin I < 0.02 07/28/19 12:09: Activated Clotting Time 350 H* I & O for Last 24 hours: Intake & Output 07/26/19 07/27/19 07/28/19 07/29/19 11:59 11:59 11:59 11:59 Weight 174 lb 183 lb 1 oz - Constitutional no acute distress, average body habitus - *Routine HEENT Exam Head: Present: normocephalic, atraumatic - *Routine Neck Exam Present: supple. Absent: lymphadenopathy - *Routine Respiratory Exam Present: CTA bilaterally - *Routine Cardiovascular Exam Present: RRR - *Routine Abdominal Exam Present: soft, normoactive bowel sounds. Absent: tenderness - *Routine Extremities Exam Absent: cyanosis, clubbing, edema - *Routine Neurological Exam Present: alert, oriented X3 - Detailed Eye Exam Eyelids: Left normal inspection Assessment and Plan (1) Unstable angina Current visit: Yes Status: Acute Category: Medical Code(s): I20.0 - Unstable angina (2) CAD (coronary artery disease) Current visit: No Status: Chronic Qualifiers: Coronary Disease-Associated Artery/Lesion type: [place] artery [place] vs. transplanted heart: [place] heart Associated angina: without angina Qualified Code(s): I25.10 - Atherosclerotic heart disease of [place] coronary artery without angina pectoris Category: Medical Code(s): I25.10 - Atherosclerotic heart disease of [place] coronary artery without angina pectoris (3) COPD (chronic obstructive pulmonary disease) Current visit: No Status: Chronic Qualifiers: COPD type: unspecified COPD Qualified Code(s): J44.9 - Chronic obstructive pulmonary disease, unspecified Category: Medical Code(s): J44.9 - Chronic obstructive pulmonary disease, unspecified (4) Carotid artery stenosis Current visit: No Status: Chronic Qualifiers: Laterality: bilateral Qualified Code(s): I65.23 - Occlusion and stenosis of bilateral carotid arteries Category: Medical Code(s): I65.29 - Occlusion and stenosis of unspecified carotid artery (5) Dyspnea Current visit: No Status: Chronic Qualifiers: Dyspnea type: shortness of breath Qualified Code(s): R06.02 - Shortness of breath; R06.00 - Dyspnea, unspecified; R06.01 - Orthopnea Category: Medical Code(s): R06.00 - Dyspnea, unspecified (6) HLD (hyperlipidemia) Current visit: No Status: Chronic Qualifiers: Hyperlipidemia type: mixed hyperlipidemia Qualified Code(s): E78.2 - Mixed hyperlipidemia Category: Medical Code(s): E78.5 - Hyperlipidemia, unspecified (7) Hypertension Current visit: No Status: Chronic Qualifiers: Hypertension type: renovascular hypertension Qualified Code(s): I15.0 - Renovascular hypertension Category: Medical Code(s): I10 - Essential (primary) hypertension (8) Stented coronary artery Current visit: No Status: Chronic Category: Surgical Code(s): Z95.5 - Presence of coronary angioplasty implant and graft - Assessment and plan all Dx Assessment and Plan for all problems:: Agree with need for admit and LHC... needs to quit smoking.
--- NOTE | 2019-07-28 16:21 | Pharmacy Consult Notes ---
[facility] Pharmacy VTE Monitoring - Patient Demographics Admission date: 07/28/19 Report Date: 07/28/19 Time: 16:20 Allergies/Adverse Reactions: Patient Allergies No Known Allergies Allergy (Verified 05/11/19 13:44) Height: 1.75 m Weight: 83.036 kg Patient Problems: Current Active Problems Precordial chest pain (Acute) Unstable angina (Acute) - VTE Risk Labs: VTE Related Lab Results Hgb 13.9 g/dL (12.2-16.2) 07/28/19 08:40 Hct 44.1 % (37.0-47.0) 07/28/19 08:40 Plt Count 312 K/mm3 (142-424) 07/28/19 08:40 BUN 14 mg/dL (7-18) 07/28/19 08:40 Creatinine 1.11 mg/dL (0.55-1.02) H 07/28/19 08:40 Estimated Creat Clear 61 mL/min (50-200) 07/28/19 08:40 VTE Score: 3 VTE Risk Level: Low Risk - Prophylaxis VTE Prophylaxis Ordered?: Yes Types of VTE Prophylaxis: TEDS Knee High Location of Applied Device: Bilateral Lower Extremeties - VTE Diagnosis Confirmed Treatment or plan recommended: Continue Current Treatment
--- NOTE | 2019-07-28 17:07 | Electrocardiograph Report ---
APPROVED REPORT Exam: Resting ECG HR:61 bpm ECG Measurements Heart Rate 61 AXES [place] 162 P 23 QRSd 84 QRS 61 QT 454 T77 QTc 457 <Conclusion> Normal sinus rhythm Nonspecific ST and T wave abnormality Abnormal ECG Electronically signed by : Isidro Mitchell, 07/28/2019 17:06:36
[2019-07-29 06:13] LABS: Basophils % 0.4 % (0.1-2.0); Eosinophils # 0.1 K/mm3 (0.0-0.4); Eosinophils % 1.1 % (0.1-12.0); Hematocrit 35.2 % (37.0-47.0); Mean Platelet Volume 8.1 fl (7.4-10.4); Monocytes # 0.6 K/mm3 (0.1-1.0)
[2019-07-29 06:24] LABS: Anion Gap 12.2 mEq/L (5-15)
[2019-07-29 06:46] LABS: Lymphocytes # 2.6 K/mm3 (0.7-4.5); Mean Corpuscular HGB Conc 31.1 g/dL (31.8-35.4); Mean Corpuscular Volume 93.3 fl (81-99); Monocytes % 7.2 % (1.7-9.3); Neutrophils # 5.4 K/mm3 (1.8-7.8); Neutrophils % 61.3 % (37.0-80.0); Platelet Count 233 K/mm3 (142-424); Red Blood Count 3.77 M/mm3 (4.20-5.40); Red Cell Distribution Width 14.3 % (11.5-17.5); White Blood Count 8.8 K/mm3 (4.8-10.8)
[2019-07-29 06:48] LABS: Calcium 8.4 mg/dL (8.5-10.1)
[2019-07-29 07:05] LABS: Hemoglobin 10.9 g/dL (12.2-16.2)
--- NOTE | 2019-07-29 07:27 | Discharge Summary ---
General - General Admission date:: 07/28/19 Discharge date: 07/29/19 HPI HPI: 69-year-old female presented to ED this morning for left sided chest pain. Patient stated the left-sided chest pain woke her up. Patient describes pain as excruciating pain which originates under the left breast and radiates to the left side neck. Patient complains of increased shortness of breath with this episode. She states on pain scale 10/10. Patient did receive 1 nitro glycerin sublingual and 4 mg of morphine IV. Patient stated her pain has not been relieved. Patient denies nausea vomiting or fever. Patient denies numbness or tingling of the lower extremities. No swelling noted of the lower extremities. Patient does have history of coronary artery disease. In 02/12, patient underwent left heart catheterization which revealed widely patent stents to the LAD, first diagonal artery and mid to distal left main artery. Last echocardiogram, (02/12) revealed EF of 55% with no wall motion abnormality. Patient does have history of COPD. Patient smokes less than 1 pack/day. Initial cardiac work-up in the ED was performed. ECG revealed sinus rhythm with non-specific ST and T wave abnormality with a heart rate of 61 bpm. Chest x-ray revealed no acute findings other than chronic COPD. Cardiac serial enzymes were performed. Troponin x1 negative. Above per cardiology... agree with above Hospital Course Hospital Course: Patient was admitted. She was subjected to left heart catheterization with angiographic results as noted below: ANGIOGRAPHIC RESULTS The left main artery Has a stent in the mid segment which extends into the LAD in a contiguous manner. The proximal portion of the stent in the distal portion has excellent transitioning. There is no in-stent restenosis The left anterior descending artery Has a stent originating off left main artery and extends through the proximal segment just distal to the first diagonal artery. The stent is widely patent free of in-stent restenosis. The remaining LAD has 30% stenoses. A large first diagonal artery has a bifurcating stent which has an ostial 40 to 50% eccentric stenosis The circumflex artery Is a nondominant vessel and has a proximal telescoping 70% stenosis. The right coronary artery Is a dominant vessel and has proximal 20% and mid vessel 20% stenoses. Distally in the posterior descending artery there are 20 and 30% stenoses. The GAY ventriculogram reveals Hyperdynamic 75 to 80% The left ventricular end-diastolic pressure 20 to 25 mmHg IMPRESSION Patent left main stent extending into the proximal LAD just beyond the first diagonal artery in a contiguous manner with widely patent stent in the first diagonal artery. Severe stenosis in a nondominant circumflex artery Successful stenting of the circumflex artery severe disease reduced to 0% with one drug-eluting stent Hyperdynamic ejection fraction Elevated LVEDP consistent with diastolic dysfunction PLAN 1. Dual antiplatelet therapy 2. Medical management 3. Patient would benefit from diltiazem or verapamil combined with beta-blockers 4. Maximize antianginals 5. Start low-dose loop diuretics in order to decrease LVEDP 6. Avoidance of tobacco products 7. Cardiac rehabilitation After the heart catheterization patient felt much better with elimination of her pain. She was watched overnight. This morning is doing well. Eating well. No chest pain. Continues to have her baseline cough. Plan will be to discharge home. I will follow her up in 4 days in the office. I once again strongly encouraged her to avoid cigarettes. She has relapsed back to a significant smoking habit. We will begin low-dose Lasix therapy along with her other medications and I will follow her closely in the office. Objective Vital signs: Temp Pulse Resp BP Pulse Ox 97.9 F 51 L 16 138/60 93 L 07/29/19 04:00 07/29/19 06:00 07/29/19 06:00 07/29/19 06:00 07/29/19 06:00 Narrative: Alert, oriented x3. Complaining about breakfast. Lungs have good air movement. Minimal expiratory rhonchi. Heart rate regular. No murmurs. Good distal perfusion. Abdomen soft. Oropharynx clear, no JVD. Neurologic exam intact. Results Labs on day of discharge: Labs from last 24 hours 07/29/19 07/29/19 07/28/19 05:25 05:25 12:09 WBC 8.8 D RBC 3.77 L Hgb 10.9 L D Hct 35.2 L MCV 93.3 MCH 29.0 MCHC 31.1 L RDW 14.3 Plt Count 233 D MPV 8.1 Neut % (Auto) 61.3 Lymph % (Auto) 30.0 [place] % (Auto) 7.2 Eos % (Auto) 1.1 Baso % (Auto) 0.4 Neut # (Auto) 5.4 Lymph # (Auto) 2.6 [place] # (Auto) 0.6 Eos # (Auto) 0.1 Baso # (Auto) 0.0 Activated Clotting Time 350 H* Sodium 140 Potassium 4.2 Chloride 107 Carbon Dioxide 25 Anion Gap 12.2 BUN 18 D Creatinine 1.18 H Estimated Creat Clear 61 Estimated GFR 46 L Est GFR ( Amer) 55 L Glucose 82 D Calcium 8.4 L D Troponin I 07/28/19 07/28/19 08:40 08:40 WBC 11.8 H RBC 4.77 Hgb 13.9 Hct 44.1 MCV 92.5 MCH 29.1 MCHC 31.5 L RDW 14.1 Plt Count 312 MPV 7.9 Neut % (Auto) 81.7 H Lymph % (Auto) 14.0 [place] % (Auto) 4.1 Eos % (Auto) 0.0 L Baso % (Auto) 0.1 Neut # (Auto) 9.6 H Lymph # (Auto) 1.7 [place] # (Auto) 0.5 Eos # (Auto) 0.0 Baso # (Auto) 0.0 Activated Clotting Time Sodium 140 Potassium 4.4 Chloride 103 Carbon Dioxide 25 Anion Gap 16.4 H BUN 14 Creatinine 1.11 H Estimated Creat Clear 61 Estimated GFR 49 L Est GFR ( Amer) 59 Glucose 108 H Calcium 9.5 Troponin I < 0.02 DS: Diagnosis - Discharge Diagnosis (1) Unstable angina Status: Resolved (2) CAD (coronary artery disease) Status: Chronic (3) COPD (chronic obstructive pulmonary disease) Status: Chronic (4) Carotid artery stenosis Status: Chronic (5) Dyspnea Status: Chronic (6) HLD (hyperlipidemia) Status: Chronic (7) Hypertension Status: Chronic (8) Stented coronary artery Status: Chronic Discharge Plan - Patient Discharge Instructions ACTIVITY: Continue current activity DIET: continue same diet - Follow up Plan Follow up with: Ephraim Lombardo MD [Primary Care Provider] - 08/03/19 Disposition: Home, Self-[facility] Medications: Home Medications Medication Instructions Recorded Confirmed Type Aspirin [Aspir 81] 81 mg PO DAILY 01/30/19 07/28/19 History cetirizine 10 mg tablet 10 mg PO DAILY tab 02/11/19 07/28/19 History omeprazole 40 mg capsule,delayed 40 mg PO DAILY 02/11/19 07/28/19 History release Atorvastatin Calcium [Atorvastatin 10 mg PO DAILY 03/13/19 07/28/19 History 10mg Tab] Clopidogrel Bisulfate [Plavix 75mg 75 mg PO DAILY 03/13/19 07/28/19 History Tab] metoprolol succinate ER 50 mg 25 mg PO DAILY tab 04/19/19 07/28/19 History tablet,extended release 24 hr citalopram 40 mg tablet 40 mg PO DAILY tab 04/27/19 07/28/19 History losartan 50 mg tablet 50 mg PO DAILY 05/11/19 07/28/19 History Furosemide [Lasix 20mg tab] 20 mg PO DAILY #30 tab 07/29/19 Rx Prescriptions/Medication Reconciliation: New Furosemide [Lasix 20mg tab] 20 mg PO DAILY #30 tab Continued omeprazole 40 mg capsule,delayed release 40 mg PO DAILY cetirizine 10 mg tablet 10 mg PO DAILY tab metoprolol succinate ER 50 mg tablet,extended release 24 hr 25 mg PO DAILY tab citalopram 40 mg tablet 40 mg PO DAILY tab losartan 50 mg tablet 50 mg PO DAILY Aspirin [Aspir 81] 81 mg PO DAILY Clopidogrel Bisulfate [Plavix 75mg Tab] 75 mg PO DAILY Atorvastatin Calcium [Atorvastatin 10mg Tab] 10 mg PO DAILY - Problem Reconciliation Problems Reviewed?: Yes
[2019-07-29 08:07] VITALS: BP 139/54
--- NOTE | 2019-07-29 08:14 | Progress Note ---
Subjective Date: 07/29/19 Time: 08:11 Principal diagnosis: UAP Interval history: 69 yo WF in bed in NAD. No further chest pain. Ready to go home. Last metoprolol dose was 07/27/19 but heart rate still in the 60's Confirms she is back to smoking but states she knows she needs to quit. Wants to try Nicotine patches. Exam Vital signs and Labs for Last 24 Hours: Temp Pulse Resp BP Pulse Ox 98.1 F 58 L 18 139/54 L 95 07/29/19 08:00 07/29/19 08:00 07/29/19 08:00 07/29/19 08:00 07/29/19 08:00 Laboratory Results - last 24 hr 07/28/19 08:40: WBC 11.8 H, RBC 4.77, Hgb 13.9, Hct 44.1, MCV 92.5, MCH 29.1, MCHC 31.5 L, RDW 14.1, Plt Count 312, MPV 7.9, Neut % (Auto) 81.7 H, Lymph % (Auto) 14.0, [place] % (Auto) 4.1, Eos % (Auto) 0.0 L, Baso % (Auto) 0.1, Neut # (Auto) 9.6 H, Lymph # (Auto) 1.7, [place] # (Auto) 0.5, Eos # (Auto) 0.0, Baso # (Auto) 0.0 07/28/19 08:40: Sodium 140, Potassium 4.4, Chloride 103, Carbon Dioxide 25, Anion Gap 16.4 H, BUN 14, Creatinine 1.11 H, Estimated Creat Clear 61, Estimated GFR 49 L, Est GFR ( Amer) 59, Glucose 108 H, Calcium 9.5, Troponin I < 0.02 07/28/19 12:09: Activated Clotting Time 350 H* 07/29/19 05:25: WBC 8.8 D, RBC 3.77 L, Hgb 10.9 L D, Hct 35.2 L, MCV 93.3, MCH 29.0, MCHC 31.1 L, RDW 14.3, Plt Count 233 D, MPV 8.1, Neut % (Auto) 61.3, Lymph % (Auto) 30.0, [place] % (Auto) 7.2, Eos % (Auto) 1.1, Baso % (Auto) 0.4, Neut # (Auto) 5.4, Lymph # (Auto) 2.6, [place] # (Auto) 0.6, Eos # (Auto) 0.1, Baso # (Auto) 0.0 07/29/19 05:25: Sodium 140, Potassium 4.2, Chloride 107, Carbon Dioxide 25, Anion Gap 12.2, BUN 18 D, Creatinine 1.18 H, Estimated Creat Clear 61, Estimated GFR 46 L, Est GFR ( Amer) 55 L, Glucose 82 D, Calcium 8.4 L D I & O for Last 24 hours: Intake & Output 07/26/19 07/27/19 07/28/19 07/29/19 11:59 11:59 11:59 11:59 Intake Total 360 / 360 Balance 360 / 360 Weight 174 lb 181 lb 1 oz - *Routine HEENT Exam Head: Present: normocephalic Eye: Present: EOMI, PERRL ENT: Present: mucous membranes moist - *Routine Respiratory Exam Present: diminished air movement. Absent: accessory muscle use, rales, rhonchi, wheezes Comments: end expiratory wheezing noted anteriorly and posteriorly - *Routine Cardiovascular Exam Present: RRR. Absent: murmur, gallop, rubs - *Routine Neurological Exam Present: alert, oriented X3, moving all extremities Progress Note: A&P (1) Unstable angina Status: Resolved Current Visit: Yes (2) CAD (coronary artery disease) Status: Chronic Current Visit: No (3) COPD (chronic obstructive pulmonary disease) Status: Chronic Current Visit: No (4) Carotid artery stenosis Status: Chronic Current Visit: No (5) Dyspnea Status: Chronic Current Visit: No (6) HLD (hyperlipidemia) Status: Chronic Current Visit: No (7) Hypertension Status: Chronic Current Visit: No (8) Stented coronary artery Status: Chronic Current Visit: No Assessment and Plan for All Diagnoses:: Home today Continue home meds with ASA and plavix. Unable to add verapamil at this time due to low HR. Will try adding lasix 20 mg daily Add Nicotine patch for smoking cessation. Keep follow up on 08/10/19
== END 2019-07-29 08:44 | disposition home or self-care (01) ==
LOC: ER 08:19 → 2ND 10:37 → CATHLAB 10:37 → 2ND 14:02 → ICU 22:36
PROVIDERS: ADMIT Internal Medicine Adolescent Medicine; ATTEND Internal Medicine Adolescent Medicine
CPT/HCPCS: 36415; 71010; 71045; 80048; 84484; 85025; 85347; 87070; 87205; 92928; 93005; 93458; 96374; 96375; 96376; 99152; 99153; 99284; C1725; C1769; C1876; C9600; G0378; J1644; J2405; Q9967

== ENCOUNTER 2019-08-03 20:58 | Observation (INO) ==
[2019-08-03 21:26] LABS: Basophils # 0.1 K/mm3 (0-0.2); Basophils % 0.6 % (0.1-2.0); Eosinophils # 0.1 K/mm3 (0.0-0.4); Eosinophils % 0.8 % (0.1-12.0); Hematocrit 43.2 % (37.0-47.0); Hemoglobin 13.3 g/dL (12.2-16.2); Lymphocytes # 4.5 K/mm3 (0.7-4.5); Lymphocytes % 29.5 % (10-50); Mean Corpuscular HGB Conc 30.8 g/dL (31.8-35.4); Mean Corpuscular Volume 94.1 fl (81-99); Mean Platelet Volume 7.8 fl (7.4-10.4); Monocytes # 0.9 K/mm3 (0.1-1.0); Monocytes % 5.8 % (1.7-9.3); Neutrophils # 9.7 K/mm3 (1.8-7.8); Neutrophils % 63.5 % (37.0-80.0); Platelet Count 295 K/mm3 (142-424); Red Blood Count 4.59 M/mm3 (4.20-5.40); Red Cell Distribution Width 14.3 % (11.5-17.5); White Blood Count 15.3 K/mm3 (4.8-10.8)
[2019-08-03 21:40] LABS: Anion Gap 11.9 mEq/L (5-15); Blood Urea Nitrogen 29 mg/dL (7-18); Calcium 8.5 mg/dL (8.5-10.1); Carbon Dioxide 29 mmol/L (21.0-32.0); Chloride 102 mmol/L (98-107); Glucose 104 mg/dL (74-106); Sodium 139 mmol/L (136-145)
[2019-08-03 22:24] LABS: Anisocytosis 1+; Lymphocytes % 37 % (10-50); Monocytes % 3 % (2-9); Neutrophils % 60 % (42-76); Total Cells Counted 100
--- NOTE | 2019-08-03 22:31 | Emergency Department Note ---
ED Disposition Clinical Impression: ADAM (acute kidney injury) Syncope Qualifiers: Syncope type: unspecified Qualified Code(s): R55 - Syncope and collapse Chest pain Qualifiers: Chest pain type: precordial pain Qualified Code(s): R07.2 - Precordial pain Disposition: Admitted as Observation Condition on Discharge: Good - Critical Care Critical Care Time: No Attestation: On 08/03/19, the high probability of a clinically significant, sudden or life threatening deterioration of the following system(s) required my full and direct attention, intervention and personal management. The time I documented below is in addition to time spent performing reported procedures but includes the following listed in this critical care notation. Medical Decision Making - Medical Records Medical records reviewed: Yes: I reviewed the patient's medical records. - [place] Inquiry Pt receiving controlled substance: No Vital Signs: 08/03/19 20:58 08/03/19 21:30 Temperature 98.2 F Temperature Source Oral Pulse Rate [Right Brachial] 57 L 60 Respiratory Rate 18 16 Blood Pressure [Right Arm] 163/57 H 133/74 Blood Pressure Mean [Right Arm] 92 93 Blood Pressure Source [Right Arm] Automatic Cuff Automatic Cuff Blood Pressure Position [Right Arm] Sitting Sitting 02 Sat by Pulse Oximetry 99 96 Oxygen Delivery Method Room Air Room Air - Lab Data Lab results reviewed: Yes: I reviewed the patient's lab results. Lab Results 08/03/19 21:10: WBC 15.3 H, RBC 4.59, Hgb 13.3, Hct 43.2, MCV 94.1, MCH 28.9, MCHC 30.8 L, RDW 14.3, Plt Count 295, MPV 7.8, Neut % (Auto) 63.5, Lymph % (Auto) 29.5, [place] % (Auto) 5.8, Eos % (Auto) 0.8, Baso % (Auto) 0.6, Neut # (Auto) 9.7 H, Lymph # (Auto) 4.5, [place] # (Auto) 0.9, Eos # (Auto) 0.1, Baso # (Auto) 0.1, Total Counted 100, Neutrophils % (Manual) 60, Lymphocytes % (Manual) 37, Monocytes % (Manual) 3, Platelet Estimate Normal, Anisocytosis 1+ 08/03/19 21:10: Sodium 139, Potassium 3.9, Chloride 102, Carbon Dioxide 29, Anion Gap 11.9, BUN 29 H, Creatinine 1.58 H, Estimated Creat Clear 43, Estimated GFR 33 L, Est GFR ( Amer) 39 L, Glucose 104, Calcium 8.5, Troponin I < 0.02 Result diagrams: 08/03/19 21:10 08/03/19 21:10 Orders (Tests/Meds): ED MEDICATIONS Generic Name Dose Route Start Last Admin Trade Name Freq PRN Reason Stop Dose Admin Sodium Chloride 1,000 mls @ 999 mls/hr 08/03/19 21:00 08/03/19 21:21 Sod Chlor 0.9% 1000ml Bag IV 08/03/19 22:00 999 mls/hr .[id number] TANA Administration Discontinued Medications Generic Name Dose Route Start Last Admin Trade Name Freq PRN Reason Stop Dose Admin Aspirin 324 mg 08/03/19 21:00 08/03/19 21:21 Aspirin 81mg Chewable Tablet PO 08/03/19 21:01 324 mg ONCE ONE Administration Nitroglycerin 0.4 mg 08/03/19 21:00 08/03/19 21:21 Nitrostat 0.4mg Sl Tablet SL 08/03/19 21:01 0.4 mg ONCE ONE Administration Ondansetron HCl 4 mg 08/03/19 21:00 08/03/19 21:21 Zofran 4mg/2ml Vial IV 08/03/19 21:01 4 mg ONCE ONE Administration ORDERS Category Date Time Status CT head/brain wo con Stat Cat Scan 08/03/19 21:33 Taken XR chest 2V Stat Exams 08/03/19 21:00 Taken UA [Urinalysis and Microscopic] Stat Lab 08/03/19 22:28 Ordered - Radiology Data #1 Image(s): Chest Image Reviewed: Yes I reviewed the patient's radiology image Preliminary Findings: Normal/NAD - CT Data CT Scan: Head Time Received: 23:[address] Reviewed: Yes: I have viewed the radiologist's interpretation Preliminary Findings: Normal/NAD - ECG Data Tracing #1 Arrhythmias present: sinus nadia Ischemic changes: non-specific ST-T wave changes - Physician Consults Physician Consulted: krystle Reason -: Admission Chest Pain HPI - General Chief Complaint: Chest Pain Stated Complaint: CP Time Seen by Provider: 08/03/19 21:10 Mode of Arrival: Ambulatory Source of Information: Patient, Relative, Medical Record Limitations: No Limitations Description of Symptoms (Recalled from ER Triage Doc. by RN): Pt c/o of cp and n/v that started this morning. She states she had heart cath last fri. denies any other symptoms at this time. - History of Present Illness HPI narrative: pt with recent cardiac stent last week and saw pcp today and about 1300 has a brief syncopal episode with feeling of dec hr prior and has not felt well since - some chest pain and tingling MD complaint: chest pain indicative of cardiac Onset (ago): hour(s) Duration: intermittent Activity at onset: during rest Pain location: substernal Severity: moderate Quality: aching Risk Factors for CAD: Family Hx of CAD Treatments prior to or on arrival for Cardiac Chest Pain: none - RICHARD Score for Non-Stemi Age of Patient: 60-69 years old Heart Rate: 50-69 bpm Systolic Blood Pressure: 160-199 mmHg Serum Creatinine: 1.20-1.59 mg/dl CHF [place] Class: I-No CHF Other Risk Factors: None Non-Stemi Risk Score: 81 - Related Data Prior Cardiac Testing/Procedures: Stenting On Oral Contraceptives: No Home Medications Medication Instructions Recorded Confirmed Aspirin [Aspir 81] 81 mg PO DAILY 01/30/19 08/03/19 cetirizine 10 mg tablet 10 mg PO DAILY tab 02/11/19 08/03/19 omeprazole 40 mg capsule,delayed 40 mg PO DAILY 02/11/19 08/03/19 release Atorvastatin Calcium [Atorvastatin 10 mg PO DAILY 03/13/19 08/03/19 10mg Tab] Clopidogrel Bisulfate [Plavix 75mg 75 mg PO DAILY 03/13/19 08/03/19 Tab] metoprolol succinate ER 50 mg 25 mg PO DAILY tab 04/19/19 08/03/19 tablet,extended release 24 hr citalopram 40 mg tablet 40 mg PO DAILY tab 04/27/19 08/03/19 losartan 50 mg tablet 50 mg PO DAILY 05/11/19 08/03/19 Furosemide [Lasix 20mg tab] 20 mg PO DAILY 08/03/19 08/03/19 Nicotine [Nicotine Patch 1 patch TRANSDERMAL DAILY 08/03/19 08/03/19 21mg/24hrs] Allergies Allergy/AdvReac Type Severity Reaction Status Date / Time No Known Allergies Allergy Verified 08/03/19 21:03 [facility] History - Hepatitis A Screen Drug use history?: No High risk sexual behaviors?: No History of sexually transmitted infection?: No Currently employed?: No Childcare worker?: No Do you have indoor plumbing?: Yes Do you have electricity?: Yes Attestation statement:: This patient has been screened for Hepatitis A risk factors. I have reviewed the patient's past medical history: Yes Medical History: Reports:: Chronic Obstructive Pulmonary Disease (COPD), Coronary Artery Disease, Gastroesophageal Reflux Disease(GERD), Hyperlipidemia, Hypertension, Lung Disease Denies:: Cancer, Diabetes Mellitus Type 1, Diabetes Mellitus Type 2, Internal Pacemaker, MRSA, Seizures Other Medical History: Reports: Fibromyalgia Other Surgeries: Yes: Angiogram, Cardiac Catheterization, Cholecystectomy, Coronary Stent, Hysterectomy-Total. No: Pacemaker Amputation: No Fractures: No - Social History Smoking Status: Current every day smoker Tobacco Type: cigarettes # Packs/Day (cigarettes): 1 #Yrs smoked (if former smoker): 53 Alcohol Intake: never Substance Use Type: denies use Occupational Status: employed Housing: house Household Members: spouse, children Family Hx:: Cancer, Coronary Artery Disease, Heart Attack, Hyperlipidemia, Hyp ertension, Stroke, Thyroid Disorder Comment: Father- of HI@75. Mother-CHF. Brother- of [place]@22 ROS Obtained: Yes All systems reviewed & no additional complaints - Constitutional Constitutional: Denies fever(s) - Eyes Eyes: Denies change in vision - ENT Ears, Nose, Mouth, and Throat: Denies sore throat - Cardiovascular Cardiovascular: Reports as per HPI, Reports chest pain, Reports slow heart rate - Respiratory Respiratory: No cough - Gastrointestinal Gastrointestingal: Denies: abdominal pain - Genitourinary Female Genitourinary: Denies hematuria - Musculoskeletal Musculoskeletal: Denies joint pain, Denies joint swelling - Integumentary/Breasts Skin/Breast: Denies rash - Neurologic Neurologic: Denies seizure-like activity Physical Exam - General General appearance: alert - Head Head exam: normocephalic - Eye Eye exam: Present: PERRL, EOMI. Absent: scleral icterus - ENT ENT exam: Present: mucous membranes dry - Neck Neck exam: Present: trachea midline - Respiratory Respiratory exam: Present: respiratory distress - Cardiovascular Cardiovascular exam: Present: regular rate, systolic murmur, +S4 - Abdominal Exam Abdominal exam: Present: soft - Extremities Exam Extremities exam: Present: full ROM - Neurological Exam Neurological exam: Present: alert, CN II-XII intact - Psychiatric Psychiatric exam: Present: normal affect - Skin Skin exam: Absent: rash
[2019-08-04 00:08] LABS: Microscopic, Urine URINE MICROSCOPIC (MICROSCOPIC)
[2019-08-04 00:12] LABS: Appearance,Urine CLEAR (Clear); Bilirubin,Urine Negative (Negative); Blood, Urine Negative (Negative); Color,Urine YELLOW (Yellow); Glucose,Urine (UA) Negative (Negative); Ketones,Urine Negative (Negative); Leukocyte Esterase,Urine 2+ (Negative); PH,Urine 5.5 (5.0-8.5); Protein,Urine Negative (Negative); Specific Gravity, Urine <= 1.005 (1.005-1.030); Urobilinogen,Urine 0.2 EU/dl (0.2)
[2019-08-04 00:48] LABS: Bacteria,Urine 1+ /lpf; Mucus,Urine 1+ /lpf; WBC,Urine 20-50 #/hpf (0-3)
[2019-08-04 07:08] LABS: Basophils # 0.1 K/mm3 (0-0.2); Basophils % 0.8 % (0.1-2.0); Eosinophils # 0.2 K/mm3 (0.0-0.4); Eosinophils % 1.4 % (0.1-12.0); Hematocrit 37.1 % (37.0-47.0); Lymphocytes # 3.7 K/mm3 (0.7-4.5); Lymphocytes % 30.5 % (10-50); Mean Corpuscular HGB Conc 30.3 g/dL (31.8-35.4); Mean Corpuscular Volume 95.4 fl (81-99); Monocytes # 0.7 K/mm3 (0.1-1.0); Monocytes % 5.7 % (1.7-9.3); Neutrophils # 7.4 K/mm3 (1.8-7.8); Neutrophils % 61.6 % (37.0-80.0); Platelet Count 229 K/mm3 (142-424); Red Blood Count 3.89 M/mm3 (4.20-5.40); Red Cell Distribution Width 14.3 % (11.5-17.5)
[2019-08-04 07:19] LABS: Anion Gap 11.2 mEq/L (5-15); Calcium 7.8 mg/dL (8.5-10.1)
--- NOTE | 2019-08-04 07:28 | Pharmacy Consult Notes ---
[facility] [place] Pharmacy VTE Monitoring - Patient Demographics Admission date: 08/03/19 Report Date: 08/04/19 Time: 07:27 Allergies/Adverse Reactions: Patient Allergies No Known Allergies Allergy (Verified 08/03/19 23:36) Height: 1.75 m Weight: 84.17 kg Patient Problems: Current Active Problems Syncope (Acute) Chest pain (Acute) ADAM (acute kidney injury) (Acute) - VTE Risk Labs: VTE Related Lab Results Hgb 13.3 g/dL (12.2-16.2) 08/03/19 21:10 Hct 37.1 % (37.0-47.0) 08/04/19 06:30 Plt Count 229 K/mm3 (142-424) 08/04/19 06:30 BUN 29 mg/dL (7-18) H 08/04/19 06:30 Creatinine 1.26 mg/dL (0.55-1.02) H D 08/04/19 06:30 Estimated Creat Clear 58 mL/min (50-200) 08/04/19 06:30 Clinical Trial Participant: No - Prophylaxis VTE Prophylaxis Ordered?: Yes Types of VTE Prophylaxis: TEDS Knee High
[2019-08-04 07:37] LABS: Hemoglobin 11.3 g/dL (12.2-16.2)
--- NOTE | 2019-08-04 08:38 | H&P/Discharge Summary ---
General - General Admission date:: 08/03/19 Discharge date: 08/04/19 *Admission Date: 08/03/19 *Chief complaint: Tingling/presyncope *History of present illness: 69-year-old white female with recent stent placement, and known coronary disease who I saw in my office yesterday morning for COPD follow-up and recent stent follow-up. 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 My staff was actually at the restaurant and helped her get back to my office where vital signs were unremarkable except for a pulse rate in the mid 40s and blood pressure in the low 100 range systolically. She recovered uneventfully and we were able to discharge her home. However later that evening became presyncopal again and tingling, came back to the emergency department and was admitted overnight for further observation. [facility] History I have reviewed the patient's past medical history: Yes Medical History: Reports:: Chronic Obstructive Pulmonary Disease (COPD), Coronary Artery Disease, Gastroesophageal Reflux Disease(GERD), Hyperlipidemia, Hypertension, Lung Disease Denies:: Cancer, Diabetes Mellitus Type 1, Diabetes Mellitus Type 2, Internal Pacemaker, MRSA, Seizures *Have you ever received a pneumonia vaccine?: Yes *Have you received a flu vaccine this season?: No Other Medical History: Reports: Fibromyalgia Other Surgeries: Yes: Angiogram, Cardiac Catheterization, Cholecystectomy, Coronary Stent, Hysterectomy-Total. No: Pacemaker Amputation: No Fractures: No - *Social History Educational Level: Completed High School Smoking Status: Current every day smoker Tobacco Type: cigarettes # Packs/Day (cigarettes): 1 #Yrs smoked (if former smoker): 53 Alcohol Intake: never Substance Use Type: denies use *Occupational Status:: retired Housing: house Household Members: spouse *Travel in the last 8 weeks: None Family Hx:: Cancer, Heart Attack, Hyperlipidemia, Hypertension, Stroke Review of Systems - Review of Systems Review of systems:: pertinent systems reviewed and negative unless documented below - *Neurologic Denies seizure-like activity Exam Vital signs and Labs for Last 24 Hours: Temp Pulse Resp BP Pulse Ox 97.9 F 50 L 18 142/43 H 94 L 08/04/19 04:00 08/04/19 04:00 08/04/19 04:00 08/04/19 04:00 08/04/19 04:00 Laboratory Results - last 24 hr 08/03/19 21:10: WBC 15.3 H, RBC 4.59, Hgb 13.3, Hct 43.2, MCV 94.1, MCH 28.9, MCHC 30.8 L, RDW 14.3, Plt Count 295, MPV 7.8, Neut % (Auto) 63.5, Lymph % (Auto) 29.5, [place] % (Auto) 5.8, Eos % (Auto) 0.8, Baso % (Auto) 0.6, Neut # (Auto) 9.7 H, Lymph # (Auto) 4.5, [place] # (Auto) 0.9, Eos # (Auto) 0.1, Baso # (Auto) 0.1, Total Counted 100, Neutrophils % (Manual) 60, Lymphocytes % (Manual) 37, Monocytes % (Manual) 3, Platelet Estimate Normal, Anisocytosis 1+ 08/03/19 21:10: Sodium 139, Potassium 3.9, Chloride 102, Carbon Dioxide 29, Anion Gap 11.9, BUN 29 H, Creatinine 1.58 H, Estimated Creat Clear 43, Estimated GFR 33 L, Est GFR ( Amer) 39 L, Glucose 104, Calcium 8.5, Troponin I < 0.02 08/04/19 00:00: Urine Color Yellow, Urine Appearance Clear, Urine pH 5.5, Ur Specific [place] <= 1.005, Urine Protein Negative, Urine Glucose (UA) Negative, Urine Ketones Negative, Urine Blood Negative, Urine Nitrate Negative, Urine Bilirubin Negative, Urine Urobilinogen 0.2, Ur Leukocyte Esterase 2+ A, Urine WBC 20-50, Ur Squamous Epith Cells 10-20, Urine Bacteria 1+, Urine Mucus 1+ 08/04/19 02:20: Troponin I < 0.02 08/04/19 06:30: Troponin I < 0.02 08/04/19 06:30: WBC 12.0 H, RBC 3.89 L, Hgb 11.3 L D, Hct 37.1, MCV 95.4, MCH 28.9, MCHC 30.3 L, RDW 14.3, Plt Count 229, MPV 8.0, Neut % (Auto) 61.6, Lymph % (Auto) 30.5, [place] % (Auto) 5.7, Eos % (Auto) 1.4, Baso % (Auto) 0.8, Neut # (Auto) 7.4, Lymph # (Auto) 3.7, [place] # (Auto) 0.7, Eos # (Auto) 0.2, Baso # (Auto) 0.1 08/04/19 06:30: Sodium 143, Potassium 4.2, Chloride 110 H, Carbon Dioxide 26, Anion Gap 11.2, BUN 29 H, Creatinine 1.26 H D, Estimated Creat Clear 58, Estimated GFR 42 L, Est GFR ( Amer) 51 L D, Glucose 84, Calcium 7.8 L, Magnesium 1.9 I & O for Last 24 hours: Intake & Output 08/01/19 08/02/19 08/03/19 08/04/19 11:59 11:59 11:59 11:59 Intake Total 534 / 534 Output Total 400 / 400 Balance 134 / 134 Weight 185 lb 9.009 oz Narrative: Patient is alert, oriented. Now feels "fine." Vital signs unremarkable. ENT exam clear. No JVD. Heart rate regular. Lungs clear. Abdomen soft, Able to move all extremities. Neurologically intact. Hospital Course Hospital Course: Overnight patient had normal electrolytes. Vital signs unremarkable, troponins negative x3. Plan will be to discharge her home with half the dose of metoprolol as previously because of bradycardia. We will do 48-hour Holter monitor and I will prescribe very low-dose diazepam for what sounds like a panic attack. Results Labs on day of discharge: Labs from last 24 hours 08/04/19 08/04/19 08/04/19 06:30 06:30 06:30 WBC 12.0 H RBC 3.89 L Hgb 11.3 L D Hct 37.1 MCV 95.4 MCH 28.9 MCHC 30.3 L RDW 14.3 Plt Count 229 MPV 8.0 Neut % (Auto) 61.6 Lymph % (Auto) 30.5 [place] % (Auto) 5.7 Eos % (Auto) 1.4 Baso % (Auto) 0.8 Neut # (Auto) 7.4 Lymph # (Auto) 3.7 [place] # (Auto) 0.7 Eos # (Auto) 0.2 Baso # (Auto) 0.1 Total Counted Neutrophils % (Manual) Lymphocytes % (Manual) Monocytes % (Manual) Platelet Estimate Anisocytosis Sodium 143 Potassium 4.2 Chloride 110 H Carbon Dioxide 26 Anion Gap 11.2 BUN 29 H Creatinine 1.26 H D Estimated Creat Clear 58 Estimated GFR 42 L Est GFR ( Amer) 51 L D Glucose 84 Calcium 7.8 L Magnesium 1.9 Troponin I < 0.02 Urine Color Urine Appearance Urine pH Ur Specific [place] Urine Protein Urine Glucose (UA) Urine Ketones Urine Blood Urine Nitrate Urine Bilirubin Urine Urobilinogen Ur Leukocyte Esterase Urine WBC Ur Squamous Epith Cells Urine Bacteria Urine Mucus 08/04/19 08/04/19 08/03/19 02:20 00:00 21:10 WBC RBC Hgb Hct MCV MCH MCHC RDW Plt Count MPV Neut % (Auto) Lymph % (Auto) [place] % (Auto) Eos % (Auto) Baso % (Auto) Neut # (Auto) Lymph # (Auto) [place] # (Auto) Eos # (Auto) Baso # (Auto) Total Counted Neutrophils % (Manual) Lymphocytes % (Manual) Monocytes % (Manual) Platelet Estimate Anisocytosis Sodium 139 Potassium 3.9 Chloride 102 Carbon Dioxide 29 Anion Gap 11.9 BUN 29 H Creatinine 1.58 H Estimated Creat Clear 43 Estimated GFR 33 L Est GFR ( Amer) 39 L Glucose 104 Calcium 8.5 Magnesium Troponin I < 0.02 < 0.02 Urine Color Yellow Urine Appearance Clear Urine pH 5.5 Ur Specific [place] <= 1.005 Urine Protein Negative Urine Glucose (UA) Negative Urine Ketones Negative Urine Blood Negative Urine Nitrate Negative Urine Bilirubin Negative Urine Urobilinogen 0.2 Ur Leukocyte Esterase 2+ A Urine WBC 20-50 Ur Squamous Epith Cells 10-20 Urine Bacteria 1+ Urine Mucus 1+ 08/03/19 21:10 WBC 15.3 H RBC 4.59 Hgb 13.3 Hct 43.2 MCV 94.1 MCH 28.9 MCHC 30.8 L RDW 14.3 Plt Count 295 MPV 7.8 Neut % (Auto) 63.5 Lymph % (Auto) 29.5 [place] % (Auto) 5.8 Eos % (Auto) 0.8 Baso % (Auto) 0.6 Neut # (Auto) 9.7 H Lymph # (Auto) 4.5 [place] # (Auto) 0.9 Eos # (Auto) 0.1 Baso # (Auto) 0.1 Total Counted 100 Neutrophils % (Manual) 60 Lymphocytes % (Manual) 37 Monocytes % (Manual) 3 Platelet Estimate Normal Anisocytosis 1+ Sodium Potassium Chloride Carbon Dioxide Anion Gap BUN Creatinine Estimated Creat Clear Estimated GFR Est GFR ( Amer) Glucose Calcium Magnesium Troponin I Urine Color Urine Appearance Urine pH Ur Specific [place] Urine Protein Urine Glucose (UA) Urine Ketones Urine Blood Urine Nitrate Urine Bilirubin Urine Urobilinogen Ur Leukocyte Esterase Urine WBC Ur Squamous Epith Cells Urine Bacteria Urine Mucus DS: Diagnosis - Discharge Diagnosis (1) Chest pain Status: Acute (2) Syncope Status: Acute Discharge Plan - Patient Discharge Instructions ACTIVITY: Continue current activity DIET: continue same diet Patient Instructions: DI for Syncope in Adults (Fainting), Fainting, Angina, DI for Angina, Acute Renal Failure - Follow up Plan Follow up with: Ephraim Lombardo MD [Primary Care Provider] - 08/06/19 Disposition: Home, Self-[facility] Medications: Home Medications Medication Instructions Recorded Confirmed Type Aspirin [Aspir 81] 81 mg PO HS 01/30/19 08/03/19 History cetirizine 10 mg tablet 10 mg PO HS tab 02/11/19 08/03/19 History omeprazole 40 mg capsule,delayed 40 mg PO DAILY 02/11/19 08/03/19 History release Atorvastatin Calcium [Atorvastatin 10 mg PO HS 03/13/19 08/03/19 History 10mg Tab] Clopidogrel Bisulfate [Plavix 75mg 75 mg PO HS 03/13/19 08/03/19 History Tab] citalopram 40 mg tablet 40 mg PO HS tab 04/27/19 08/03/19 History losartan 50 mg tablet 50 mg PO HS 05/11/19 08/03/19 History Albuterol Sulfate [Albuterol 2.5 mg IH TID PRN 08/03/19 08/03/19 History Sulfate 2.5mg/0.5ml Neb] Albuterol Sulfate [Proventil-HFA 2 puffs IH QID 08/03/19 08/03/19 History 90mcg/puff Inh] Furosemide [Lasix 20mg tab] 20 mg PO DAILY 08/03/19 08/03/19 History Metoprolol Succinate 25 mg PO HS 30 Days tab 10/09/19 Rx diazePAM [Valium] 2 mg PO BID PRN #10 tab 08/04/19 Rx Prescriptions/Medication Reconciliation: New diazePAM [Valium] 2 mg PO BID PRN #10 tab PRN Reason: Panic attacks Continued omeprazole 40 mg capsule,delayed release 40 mg PO DAILY cetirizine 10 mg tablet 10 mg PO HS tab citalopram 40 mg tablet 40 mg PO HS tab losartan 50 mg tablet 50 mg PO HS Aspirin [Aspir 81] 81 mg PO HS Clopidogrel Bisulfate [Plavix 75mg Tab] 75 mg PO HS Atorvastatin Calcium [Atorvastatin 10mg Tab] 10 mg PO HS Albuterol Sulfate [Proventil-HFA 90mcg/puff Inh] 2 puffs IH QID Albuterol Sulfate [Albuterol Sulfate 2.5mg/0.5ml Neb] 2.5 mg IH TID PRN PRN Reason: Shortness Of Breath Metoprolol Succinate 25 mg PO HS 30 Days tab Discontinued Furosemide [Lasix 20mg tab] 20 mg PO DAILY - Problem Reconciliation Problems Reviewed?: Yes
--- NOTE | 2019-08-04 11:36 | Electrocardiograph Report ---
APPROVED REPORT Exam: Resting ECG HR:56 bpm ECG Measurements Heart Rate 56 AXES SD 146 P 77 QRSd 76 QRS 65 QT 466 T79 QTc 449 <Conclusion> Sinus bradycardia Nonspecific ST abnormality Abnormal ECG Electronically signed by : Isidro Mitchell, 08/04/2019 11:36:21
== END 2019-08-04 10:16 | disposition home or self-care (01) ==
LOC: 2ND 20:58 → ER 20:58 → 2ND 23:35
PROVIDERS: ADMIT Family Medicine; ATTEND Internal Medicine Adolescent Medicine
DX: I11.0 Hypertensive heart disease with heart failure; Z72.0 Tobacco use; Z95.5 Presence of coronary angioplasty implant and graft; I25.110 Atherosclerotic heart disease of native coronary artery with unstable angina pectoris; N39.0 Urinary tract infection, site not specified; R55 Syncope and collapse; R07.9 Chest pain, unspecified; I50.30 Unspecified diastolic (congestive) heart failure; J44.9 Chronic obstructive pulmonary disease, unspecified; E78.5 Hyperlipidemia, unspecified
CPT/HCPCS: 36415; 70450; 71020; 71046; 80048; 81001; 83735; 84484; 85007; 85025; 87086; 93005; 93225; 93226; 96365; 96375; 99284; G0378; J2405

== ENCOUNTER → 2019-08-10 11:57 | Outpatient (CLI) | payer MEDICARE, OTHER, SELFPAY ==
[2019-08-10 12:16] LABS: Hemoglobin 11.1 g/dL (12.2-16.2)
[2019-08-10 12:25] LABS: Blood Urea Nitrogen 12 mg/dL (7-18); Creatinine,Serum 1.11 mg/dL (0.55-1.02); Estimated Glomerular Filt Rate 49 ml/min (>60); GFR (African American) 59 ML/MIN (>60)
== END ==
PROVIDERS: Visit Provider Internal Medicine
DX: I25.10 Atherosclerotic heart disease of native coronary artery without angina pectoris (principal); E78.2 Mixed hyperlipidemia; I65.23 Occlusion and stenosis of bilateral carotid arteries; I15.0 Renovascular hypertension; Z95.5 Presence of coronary angioplasty implant and graft
CPT/HCPCS: 36415; 82565; 84520; 85014; 85018

== ENCOUNTER → 2019-10-01 15:57 | Outpatient (CLI) | payer MEDICARE, OTHER, SELFPAY ==
--- NOTE | 2019-10-01 | ECG_ITS ---
APPROVED REPORT Exam: Resting ECG HR:70 bpm ECG Measurements Heart Rate 70 AXES MT 146 P 35 QRSd 82 QRS 61 QT 406 T 79 QTc 438 <Conclusion> Normal sinus rhythm Low voltage QRS ST abnormality, possible digitalis effect Abnormal ECG Electronically signed by : Ephraim Lombardo, 10/01/2019 16:34:27
--- NOTE | 2019-10-01 | XR_ITS ---
PROCEDURE: XR CHEST 2V CLINICAL HISTORY: Chest pain, emphysema, COPD, smoker COMPARISON: CXR2V XR chest 2V from 10/22/[address] angio chest from 03/13/2019 XR CHEST PORTABLE from 07/28/2019 XR CHEST 2V from 08/03/2019 FINDINGS: The cardiomediastinal silhouette and pulmonary vascularity are within normal limits. Coronary artery stent is present. There is a prominent calcified node in the azygos region with calcified granuloma in the right upper lobe. There is a thin curvilinear density in the left apex consistent with a small pneumothorax with an apical pleural distance of less than 1 cm. A small component may also be present left laterally. COPD. There is blunting of the left CP angle which could be due to small effusion not apparent on the previous exam. No lobar consolidation or collapse. No acute bony findings. IMPRESSION: There does appear to be a small left apical pneumothorax with associated COPD. Significant findings called to Dr. Warren 10/01/2019 at 4:54 p.m. Dictated by: Gonzalo Elizabeth MD 10/01/2019 16:54 Electronically signed by Gonzalo Elizabeth MD in [place] 10/01/2019 16:54
[2019-10-01 16:13] LABS: Basophils # 0.1 K/mm3 (0-0.2); Basophils % 0.7 % (0.1-2.0); Eosinophils # 0.3 K/mm3 (0.0-0.4); Eosinophils % 2.5 % (0.1-12.0); Hematocrit 43.4 % (37.0-47.0); Hemoglobin 13.6 g/dL (12.2-16.2); Lymphocytes # 2.9 K/mm3 (0.7-4.5); Mean Corpuscular HGB Conc 31.4 g/dL (31.8-35.4); Mean Corpuscular Hemoglobin 30.2 pg (27.0-31.2); Mean Corpuscular Volume 96.1 fl (81-99); Monocytes # 0.7 K/mm3 (0.1-1.0); Monocytes % 5.2 % (1.7-9.3); Neutrophils # 8.8 K/mm3 (1.8-7.8); Neutrophils % 68.6 % (37.0-80.0); Platelet Count 298 K/mm3 (142-424); Red Blood Count 4.52 M/mm3 (4.20-5.40); Red Cell Distribution Width 13.7 % (11.5-17.5); White Blood Count 12.8 K/mm3 (4.8-10.8)
[2019-10-01 17:20] LABS: Alanine Aminotransferase 18 U/L (12-78); Albumin Level 3.6 gm/dL (3.4-5.0); Alkaline Phosphatase 121 U/L (46-116); Aspartate Amino Transferase 14 U/L (15-37); Bilirubin,Total 0.5 mg/dL (0.2-1.0); Blood Urea Nitrogen 19 mg/dL (7-18); CKMB Relative Index 2.8 U/L (0-4.0); Calcium 9.7 mg/dL (8.5-10.1); Carbon Dioxide 27 mmol/L (21.0-32.0); Chloride 105 mmol/L (98-107); Creatine Kinase 40 U/L (26-192); Creatine Kinase MB 1.1 ng/ml (0.0-3.6); Creatinine,Serum 1.14 mg/dL (0.55-1.02); Estimated Glomerular Filt Rate 48 ml/min (>60); GFR (African American) 58 ML/MIN (>60); Globulin 3.6 gm/dl (1.3-3.2); Glucose 80 mg/dL (74-106); Sodium 142 mmol/L (136-145); Thyroid Stimulating Hormone 0.58 uIU/ml (0.358-3.740); Total Protein,Serum 7.2 gm/dL (6.4-8.2); Troponin I < 0.02 ng/ml (0.00-0.06)
--- NOTE | 2019-10-02 09:17 | PC.NURSE ---
Late entry--[id number] Dr Warren notified this RN to call patient for followup CXR
--- NOTE | 2019-10-02 09:19 | PC.NURSE ---
Patient notified of need for followup CXR and stated she would return for the CXR today
== END ==
PROVIDERS: Visit Provider Internal Medicine Adolescent Medicine
DX: J43.1 Panlobular emphysema (principal); I25.10 Atherosclerotic heart disease of native coronary artery without angina pectoris; Z79.899 Other long term (current) drug therapy
CPT/HCPCS: 36415; 71046; 80053; 82550; 82553; 84443; 84484; 85025; 93005

== ENCOUNTER → 2019-10-02 11:23 | Outpatient (CLI) | payer MEDICARE, OTHER, SELFPAY ==
--- NOTE | 2019-10-02 11:32 | XR_ITS ---
PROCEDURE: XR CHEST 2V CLINICAL HISTORY: FOLLOW UP CXR TO CHECK APICAL PNEUMOTHORAX COMPARISON: AGCHEST CT angio chest from 03/13/2019 XR CHEST PORTABLE from 07/28/2019 XR CHEST 2V from 08/03/2019 XR CHEST 2V from 10/01/2019 FINDINGS: Tiny left apical pneumothorax once again noted and may be slightly smaller. Small lateral component also present unchanged. COPD. Normal heart size. Old granulomatous disease. There is continued blunting of the left CP angle with slight increased density in the left lung base which may be due to a small area of atelectasis or patchy infiltrate. IMPRESSION: Tiny left apical pneumothorax unchanged very slightly smaller. Small left effusion with patchy atelectasis or infiltrate in the left lung base Dictated by: Gonzalo Elizabeth MD 10/02/2019 11:55 Electronically signed by Gonzalo Elizabeth MD in [place] 10/02/2019 11:55
== END ==
PROVIDERS: PCP Internal Medicine Adolescent Medicine; Visit Provider Emergency Medicine
DX: J93.9 Pneumothorax, unspecified (principal)
CPT/HCPCS: 71046

== ENCOUNTER → 2020-01-18 12:47 | Outpatient (CLI) | payer MEDICARE, OTHER, SELFPAY ==
--- NOTE | 2020-01-18 13:08 | XR_ITS ---
PROCEDURE: XR CHEST 2V CLINICAL HISTORY: COUGH, ACUTE FEBRILE ILLNESS COMPARISON: No exams were available for comparison FINDINGS: The cardiomediastinal silhouette and pulmonary vascularity are within normal limits. COPD. Diffuse hyperinflation with severe attenuation of the upper lobe pulmonary vessels consistent with COPD/emphysema. There is evidence of old granulomatous disease. No lobar consolidation or collapse. Mild kyphosis of the thoracic spine No acute bony abnormalities. IMPRESSION: COPD/emphysema. No acute finding Dictated by: Gonzalo Elizabeth MD 01/18/2020 15:16 Electronically signed by Gonzaol Elizabeth MD in [place] 01/18/2020 15:16
[2020-01-18 13:28] LABS: Basophils # 0.1 K/mm3 (0-0.2); Basophils % 0.5 % (0.1-2.0); Eosinophils # 0.1 K/mm3 (0.0-0.4); Eosinophils % 1.1 % (0.1-12.0); Hematocrit 43.1 % (37.0-47.0); Hemoglobin 14.1 g/dL (12.2-16.2); Lymphocytes # 3.1 K/mm3 (0.7-4.5); Lymphocytes % 28.5 % (10-50); Mean Corpuscular HGB Conc 32.6 g/dL (31.8-35.4); Mean Corpuscular Hemoglobin 30.5 pg (27.0-31.2); Mean Corpuscular Volume 93.3 fl (81-99); Mean Platelet Volume 7.8 fl (7.4-10.4); Monocytes # 0.5 K/mm3 (0.1-1.0); Monocytes % 4.5 % (1.7-9.3); Neutrophils # 7.2 K/mm3 (1.8-7.8); Neutrophils % 65.5 % (37.0-80.0); Platelet Count 293 K/mm3 (142-424); Red Blood Count 4.62 M/mm3 (4.20-5.40); Red Cell Distribution Width 13.5 % (11.5-17.5); White Blood Count 10.9 K/mm3 (4.8-10.8)
[2020-01-18 14:22] LABS: Alanine Aminotransferase 14 U/L (12-78); Albumin Level 4.4 g/dl (3.5-5.0); Albumin/Globulin Ratio 1.7 (1.1-1.8); Alkaline Phosphatase 129 U/L (38-126); Anion Gap 8.4 mEq/L (5-15); Aspartate Amino Transferase 23 U/L (14-36); Bilirubin,Total 0.5 mg/dl (0.2-1.3); Blood Urea Nitrogen 18 mg/dl (7-17); Calcium 9.9 mg/dl (8.4-10.2); Carbon Dioxide 30 mmol/L (22.0-30.0); Chloride 104 mmol/L (98-107); Estimated Glomerular Filt Rate 55 ml/min (>60); GFR (African American) 67 ML/MIN (>60); Globulin 2.6 g/dL (1.3-3.2); Glucose 85 mg/dl (74-100); Potassium 4.4 mmoL/L (3.5-5.1); Sodium 138 mmol/L (136-145)
== END ==
PROVIDERS: Visit Provider Internal Medicine Adolescent Medicine
DX: R50.9 Fever, unspecified (principal); R05 Cough
CPT/HCPCS: 36415; 71046; 80053; 85025

== ENCOUNTER 2020-03-07 13:17 | Emergency (ER) | payer MEDICARE, OTHER, SELFPAY ==
[2020-03-07 13:26] VITALS: BP 157/114; PULSE 62; RESP 20; TEMP 36.5; O2SAT 100; BMI 27.7
--- NOTE | 2020-03-07 13:37 | XR_ITS ---
PROCEDURE: XR CHEST PORTABLE CLINICAL HISTORY: COUGH, SOA, CP Cough, chest pain, shortness of air COMPARISON: AGCHEST CT angio chest from 03/13/2019 XR CHEST 2V from 10/01/2019 XR CHEST 2V from 10/02/2019 XR CHEST 2V from 01/18/2020 FINDINGS: Heart size. COPD with emphysema. There is evidence of old granulomatous disease with calcified granulomas in the right upper lobe and calcified node in the azygos region. No lobar consolidation or collapse. No acute bony abnormalities. IMPRESSION: COPD with old granulomatous disease. No change with no acute finding Dictated by: Gonzalo Elizabeth MD 03/07/2020 13:57 Electronically signed by Gonzalo Elizabeth MD in [place] 03/07/2020 13:57
[2020-03-07 13:58] LABS: Basophils # 0.1 K/mm3 (0-0.2); Basophils % 1.1 % (0.1-2.0); Eosinophils # 0.1 K/mm3 (0.0-0.4); Eosinophils % 1.2 % (0.1-12.0); Hematocrit 37.6 % (37.0-47.0); Hemoglobin 12.3 g/dL (12.2-16.2); Lymphocytes # 2.3 K/mm3 (0.7-4.5); Lymphocytes % 26.2 % (10-50); Mean Corpuscular HGB Conc 32.7 g/dL (31.8-35.4); Mean Corpuscular Hemoglobin 30.2 pg (27.0-31.2); Mean Corpuscular Volume 92.5 fl (81-99); Mean Platelet Volume 7.7 fl (7.4-10.4); Monocytes # 0.6 K/mm3 (0.1-1.0); Monocytes % 6.7 % (1.7-9.3); Neutrophils # 5.8 K/mm3 (1.8-7.8); Neutrophils % 64.8 % (37.0-80.0); Platelet Count 268 K/mm3 (142-424); Red Blood Count 4.06 M/mm3 (4.20-5.40); Red Cell Distribution Width 14.5 % (11.5-17.5); White Blood Count 8.9 K/mm3 (4.8-10.8)
[2020-03-07 14:05] LABS: Chloride 106 mmol/L (98-107); Sodium 136 mmol/L (136-145)
[2020-03-07 14:07] LABS: Alanine Aminotransferase 17 U/L (12-78); Aspartate Amino Transferase 25 U/L (14-36); Blood Urea Nitrogen 11 mg/dl (7-17); Creatinine Clearance Estimated 73 mL/min (50-200); Estimated Glomerular Filt Rate 62 ml/min (>60); GFR (African American) 76 ML/MIN (>60); Lactic Acid 1.5 mmol/L (0.7-2.1)
[2020-03-07 14:08] LABS: Albumin Level 4.1 g/dl (3.5-5.0); Albumin/Globulin Ratio 1.6 (1.1-1.8); Alkaline Phosphatase 90 U/L (38-126); Bilirubin,Total 0.6 mg/dl (0.2-1.3); Calcium 9.1 mg/dl (8.4-10.2); Carbon Dioxide 27 mmol/L (22.0-30.0); Globulin 2.5 g/dL (1.3-3.2); Glucose 89 mg/dl (74-100); Total Protein,Serum 6.6 g/dl (6.3-8.2)
[2020-03-07 14:26] LABS: Troponin I < 0.01 ng/ml (0.00-0.034)
--- NOTE | 2020-03-07 14:32 | HMH.EDSOB ---
ED Disposition Clinical Impression: Acute exacerbation of chronic obstructive airways disease Disposition: Home, Self-Care Condition on Discharge: Good Prescriptions: Azithromycin 250 mg PO DAILY 5 Days #6 tab Transmission Status: Sent to [facility] Budesonide 1 mg IH BID 10 Days #20 ampul.neb Transmission Status: Sent to [facility] Referrals: Ephraim Lombardo MD [Primary Care Provider] - - Critical Care Critical Care Time: No Attestation: On 03/07/20, the high probability of a clinically significant, sudden or life threatening deterioration of the following system(s) required my full and direct attention, intervention and personal management. The time I documented below is in addition to time spent performing reported procedures but includes the following listed in this critical care notation. Medical Decision Making - Medical Records Medical records reviewed: Yes: I reviewed the patient's medical records. - [place] Inquiry Pt receiving controlled substance: No Vital Signs: 03/07/20 13:26 Temperature 97.7 F Temperature Source Oral Pulse Rate [Right Radial] 62 Respiratory Rate 20 Blood Pressure [Right Arm] 157/114 H Blood Pressure Mean [Right Arm] 128 Blood Pressure Source [Right Arm] Automatic Cuff Blood Pressure Position [Right Arm] Sitting 02 Sat by Pulse Oximetry 100 Oxygen Delivery Method Room Air - Lab Data Lab results reviewed: Yes: I reviewed the patient's lab results. Lab Results 03/07/20 13:45: WBC 8.9, RBC 4.06 L, Hgb 12.3, Hct 37.6, MCV 92.5, MCH 30.2, MCHC 32.7, RDW 14.5, Plt Count 268, MPV 7.7, Neut % (Auto) 64.8, Lymph % (Auto) 26.2, [place] % (Auto) 6.7, Eos % (Auto) 1.2, Baso % (Auto) 1.1, Neut # (Auto) 5.8, Lymph # (Auto) 2.3, [place] # (Auto) 0.6, Eos # (Auto) 0.1, Baso # (Auto) 0.1 03/07/20 13:45: Sodium 136, Potassium 4.0, Chloride 106, Carbon Dioxide 27, Anion Gap 7.0, BUN 11, Creatinine 0.90, Estimated Creat Clear 73, Estimated GFR 62, Est GFR ( Amer) 76, Glucose 89, Calcium 9.1, Total Bilirubin 0.6, AST 25, ALT 17, Alkaline Phosphatase 90, Troponin I < 0.01, Total Protein 6.6, Albumin 4.1, Globulin 2.5, Albumin/Globulin Ratio 1.6 03/07/20 13:45: Lactate 1.5 Result diagrams: 03/07/20 13:45 03/07/20 13:45 Orders (Tests/Meds): ORDERS Category Date Time Status Troponin I Q3H Lab 03/07/20 16:45 Ordered Troponin I Q3H Lab 03/07/20 19:45 Ordered Blood Culture Stat Micro 03/07/20 13:45 Received - Radiology Data #1 Image(s): Chest Preliminary Findings: Normal/NAD - ECG Data Tracing #1 I reviewed this ECG and interpreted as documented below: Normal Sinus Rhythm: Yes Resp/SOB HPI - General Chief Complaint: Shortness of Breath/Dyspnea Stated Complaint: SOA CP Time Seen by Provider: 03/07/20 14:32 Mode of Arrival: Wheelchair Source of Information: Patient, Significant Other, Relative, Law Enforcement, Medical Record Limitations: No Limitations Description of Symptoms (Recalled from ER Triage Doc. by RN): PT WAS BEING SEEN IN CARDIOLOGY CLINIC FOR AN APPT TODAY WHEN SHE REPORTED THAT SHE HAS HAD CP, PRODUCTIVE COUGH, SOA X1 WEEK AND ITS ONLY GOTTEN WORSE. PT C/O GENERALIZED WEAKNESS. PT ALSO C/O NAUSEA - History of Present Illness 69-year-old female was seen over in the cardiology clinic this morning and she was having some wheezing and shortness of breath along with some substernal chest pain. Cardiology sent her over here for evaluation. Speak with the patient she she states she does not feel short of breath but she is coughing more than usual and she does have underlying COPD. She is also complaining about some left-sided chest pain that is worse with deep inhalations. Otherwise patient denies any recent fever shakes or chills. Patient denies any fatigue or malaise. Patient denies any sore throat. Patient denies any overt shortness of breath. - Related Data Home Medications Medication Instructions Recorded Confirm
[2020-03-07 14:33] VITALS: BP 98/60; PULSE 58; RESP 20; O2SAT 97
[2020-03-07 15:55] VITALS: BP 100/64; PULSE 60; RESP 16; TEMP 36.7; O2SAT 98
== END 2020-03-07 15:57 | disposition home or self-care (01) ==
PROVIDERS: Emergency Provider Family Medicine; PCP Internal Medicine Adolescent Medicine
DX: J44.1 Chronic obstructive pulmonary disease with (acute) exacerbation (principal); K21.9 Gastro-esophageal reflux disease without esophagitis; E78.5 Hyperlipidemia, unspecified; I10 Essential (primary) hypertension; M79.7 Fibromyalgia; F17.210 Nicotine dependence, cigarettes, uncomplicated; Z79.899 Other long term (current) drug therapy
CPT/HCPCS: 71045; 80053; 83605; 84484; 85025; 87040; 99283; 99284

== ENCOUNTER 2020-04-22 18:19 | Emergency (ER) | payer MEDICARE, OTHER, SELFPAY ==
[2020-04-22 18:20] VITALS: BP 126/60; BP 177/84; PULSE 73; PULSE 76; RESP 18; RESP 21; TEMP 36.7; O2SAT 96; BMI 26.6
--- NOTE | 2020-04-22 18:29 | XR_ITS ---
PROCEDURE: XR CHEST 2V Patient Age:69Y CLINICAL HISTORY: CP smoker cough chest pain short of breath COMPARISON: XR CHEST 2V from 01/18/2020 FINDINGS: PA and lateral chest performed today Lungs appear stable and clear with nothing definitely acute. No significant change. Underlying COPD emphysematous changes with attenuation of pulmonary markings at the upper lobes and slight accentuation markings towards lower lobes-stable. Overall similar appearance to previous chest film September 2019 and December 2019 The prominent calcified azygos node measure nearly 3 cm height the the again observed and reflects old granulomas disease. Associated small less than 1 cm calcified granuloma at the right upper lobe/towards apex.. Chest wall ribs intact no pleural effusion or pneumothorax. T-spine intact The heart is normal in size.. Probable coronary artery stent I believe faintly a evident to the left IMPRESSION: Stable chest with nothing definitely acute. COPD, emphysematous changes again noted . Old granulomatous disease features Dictated by: Poli Seo MD 04/23/2020 09:11 Electronically signed by Poli Seo MD in [place] 04/23/2020 09:11
--- NOTE | 2020-04-22 18:29 | ECG_ITS ---
APPROVED REPORT Exam: Resting ECG HR:73 bpm ECG Measurements Heart Rate 73 AXES [place] 156 P 71 QRSd 64 QRS 13 QT 388 T 70 QTc 427 <Conclusion> Normal sinus rhythm Low voltage QRS Poor R Wave Progression Abnormal ECG Electronically signed by : Isidro Mitchell, 04/23/2020 19:24:05
[2020-04-22 18:55] LABS: Basophils # 0.1 K/mm3 (0-0.2); Basophils % 0.6 % (0.1-2.0); Eosinophils # 0.1 K/mm3 (0.0-0.4); Hemoglobin 13.8 g/dL (12.2-16.2); Lymphocytes # 3.3 K/mm3 (0.7-4.5); Lymphocytes % 23.9 % (10-50); Mean Corpuscular HGB Conc 34.4 g/dL (31.8-35.4); Mean Corpuscular Hemoglobin 31.7 pg (27.0-31.2); Mean Platelet Volume 7.8 fl (7.4-10.4); Monocytes # 0.6 K/mm3 (0.1-1.0); Monocytes % 4.6 % (1.7-9.3); Neutrophils # 9.8 K/mm3 (1.8-7.8); Neutrophils % 69.9 % (37.0-80.0); Platelet Count 317 K/mm3 (142-424); Red Blood Count 4.35 M/mm3 (4.20-5.40); Red Cell Distribution Width 13.2 % (11.5-17.5)
[2020-04-22 18:56] LABS: Alanine Aminotransferase 15 U/L (12-78); Albumin Level 4.4 g/dl (3.5-5.0); Albumin/Globulin Ratio 1.6 (1.1-1.8); Alkaline Phosphatase 129 U/L (38-126); Anion Gap 9.8 mEq/L (5-15); Aspartate Amino Transferase 29 U/L (14-36); Bilirubin,Total 0.4 mg/dl (0.2-1.3); Blood Urea Nitrogen 22 mg/dl (7-17); Calcium 9.2 mg/dl (8.4-10.2); Carbon Dioxide 24 mmol/L (22.0-30.0); Chloride 106 mmol/L (98-107); Creatinine Clearance Estimated 70 mL/min (50-200); Estimated Glomerular Filt Rate 55 ml/min (>60); GFR (African American) 67 ML/MIN (>60); Globulin 2.8 g/dL (1.3-3.2); Glucose 117 mg/dl (74-100); Potassium 3.8 mmoL/L (3.5-5.1); Sodium 136 mmol/L (136-145); Total Protein,Serum 7.2 g/dl (6.3-8.2)
--- NOTE | 2020-04-22 19:11 | HMH.EDCP ---
ED Disposition Clinical Impression: Atypical chest pain Disposition: Home, Self-Care Condition on Discharge: Good Referrals: Ephraim Lombardo MD [Primary Care Provider] - - Critical Care Critical Care Time: No Attestation: On 04/22/20, the high probability of a clinically significant, sudden or life threatening deterioration of the following system(s) required my full and direct attention, intervention and personal management. The time I documented below is in addition to time spent performing reported procedures but includes the following listed in this critical care notation. Medical Decision Making - Medical Records Medical records reviewed: Yes: I reviewed the patient's medical records. - [place] Inquiry Pt receiving controlled substance: No Vital Signs: 04/22/20 18:20 Temperature 98.1 F Temperature Source Oral Pulse Rate [Right Radial] 76 Respiratory Rate 18 Blood Pressure [Right Arm] 126/60 Blood Pressure Mean [Right Arm] 82 Blood Pressure Source [Right Arm] Automatic Cuff Blood Pressure Position [Right Arm] Sitting 02 Sat by Pulse Oximetry 96 Oxygen Delivery Method Room Air - Lab Data Lab results reviewed: Yes: I reviewed the patient's lab results. Lab Results 04/22/20 18:25: WBC 14.0 H, RBC 4.35, Hgb 13.8, Hct 40.0, MCV 92.0, MCH 31.7 H, MCHC 34.4, RDW 13.2, Plt Count 317, MPV 7.8, Neut % (Auto) 69.9, Lymph % (Auto) 23.9, [place] % (Auto) 4.6, Eos % (Auto) 1.0, Baso % (Auto) 0.6, Neut # (Auto) 9.8 H, Lymph # (Auto) 3.3, [place] # (Auto) 0.6, Eos # (Auto) 0.1, Baso # (Auto) 0.1 04/22/20 18:25: Sodium 136, Potassium 3.8, Chloride 106, Carbon Dioxide 24, Anion Gap 9.8, BUN 22 H, Creatinine 1.00, Estimated Creat Clear 70, Estimated GFR 55 L, Est GFR ( Amer) 67, Glucose 117 H, Calcium 9.2, Total Bilirubin 0.4, AST 29, ALT 15, Alkaline Phosphatase 129 H, Troponin I < 0.01, Total Protein 7.2, Albumin 4.4, Globulin 2.8, Albumin/Globulin Ratio 1.6 Result diagrams: 04/22/20 18:25 04/22/20 18:25 Orders (Tests/Meds): ED MEDICATIONS Generic Name Dose Route Start Last Admin Trade Name Freq PRN Reason Stop Dose Admin Nitroglycerin 0.4 mg 04/22/20 18:20 04/22/20 18:31 Nitrostat 0.4mg Sl Tablet SL 05/22/20 18:19 1 dose [id number] PRN Administration Chest Pain Discontinued Medications Generic Name Dose Route Start Last Admin Trade Name Freq PRN Reason Stop Dose Admin Aspirin 324 mg 04/22/20 18:20 04/22/20 18:31 Aspirin 81mg Chewable Tablet PO 04/22/20 18:21 324 mg ONCE ONE Administration ORDERS Category Date Time Status Chest XR 2 view (NOT portable) [XR chest 2V] Stat Exams 04/22/20 18:29 Taken Troponin I Q3H Lab 04/22/20 21:45 Ordered Troponin I Q3H Lab 04/23/20 00:45 Ordered - Radiology Data #1 Image(s): Chest Preliminary Findings: Normal/NAD - ECG Data Tracing #1 I reviewed this ECG and interpreted as documented below: Normal Sinus Rhythm: Yes - RICHARD Score for Non-Stemi Age of Patient: 60-69 years old Heart Rate: 50-69 bpm Systolic Blood Pressure: 120-139 mmhg Serum Creatinine: 0.40-0.79 mg/dl CHF [place] Class: I-No CHF Other Risk Factors: None Non-Stemi Risk Score: 99 Risk Stratification: 1-108 = Low Risk Chest Pain HPI - General Chief Complaint: Chest Pain Stated Complaint: CP Time Seen by Provider: 04/22/20 19:00 Mode of Arrival: Ambulatory Source of Information: Patient Limitations: No Limitations Description of Symptoms (Recalled from ER Triage Doc. by RN): PT C/O CP IN THE CENTER OF HER CHEST ASSOCIATED WITH SOA SINCE 1 HR [facility] CLERK TO ED - History of Present Illness HPI narrative: 9-year-old female comes in complaining about some epigastric pain. She states she ate some dinner this evening and she felt some pressure in the epigastrium. Patient does have known cardiac history. She did have a Cardiac catheterization done last July by Dr. Salguero and one stent placed. Patient denies any chest pain. Patient denies
[2020-04-22 19:24] LABS: Troponin I < 0.01 ng/ml (0.00-0.034)
[2020-04-22 20:04] VITALS: BP 153/64; PULSE 71; RESP 16; TEMP 36.8; O2SAT 97
== END 2020-04-22 20:05 | disposition home or self-care (01) ==
PROVIDERS: Emergency Provider Family Medicine; PCP Internal Medicine Adolescent Medicine
DX: R07.89 Other chest pain (principal); R10.13 Epigastric pain; J44.9 Chronic obstructive pulmonary disease, unspecified; K21.9 Gastro-esophageal reflux disease without esophagitis; E78.5 Hyperlipidemia, unspecified; I10 Essential (primary) hypertension; Z90.49 Acquired absence of other specified parts of digestive tract; Z95.5 Presence of coronary angioplasty implant and graft; F17.210 Nicotine dependence, cigarettes, uncomplicated
CPT/HCPCS: 71046; 80053; 84484; 85025; 93005; 99283

== ENCOUNTER → 2020-04-24 10:59 | Outpatient (CLI) | payer MEDICARE, OTHER, SELFPAY ==
--- NOTE | 2020-04-24 11:01 | CA_ITS ---
APPROVED REPORT File Drawer Finisher: JULES Laterality: Bilateral Study Quality: Good Indications: DIRK Doppler Spectral Velocity Analysis dICA (R) 148.00/28.80 cm/s dICA (L) 109.70/23.80 cm/s Medardo (R) 119.70/33.80 cm/s Medardo (L) 120.20/21.60 cm/s pICA (R) 178.80/35.20 cm/s pICA (L) 236.10/45.30 cm/s dCCA (R) 52.10/14.20 cm/s dCCA (L) 81.00/19.30 cm/s pCCA (R) 170.40/35.20 cm/s pCCA (L) 105.40/20.60 cm/s Vert (R) 69.90/14.00 cm/s Vert (L) 64.60/14.20 cm/s ICA/CCA 3.40 ICA/CCA 2.90 Findings Duplex evaluation demonstrates stenosis of the right proximal internal carotid artery in the range of 50-69% with PSV =140 cm/sec, EDV <100 cm/sec, and IC/CC Ratio <4.0.Duplex evaluation demonstrates stenosis of the left proximal internal carotid artery in the range of 50-69% with PSV =140 cm/sec, EDV <100 cm/sec, and IC/CC Ratio <4.0.Antegrade flow seen bilateral vertebral arteries. No significant change from exam of 12/31/18 Conclusion Duplex evaluation demonstrates stenosis of the right proximal internal carotid artery in the range of 50-69% with PSV =140 cm/sec, EDV <100 cm/sec, and IC/CC Ratio <4.0.Duplex evaluation demonstrates stenosis of the left proximal internal carotid artery in the range of 50-69% with PSV =140 cm/sec, EDV <100 cm/sec, and IC/CC Ratio <4.0.Antegrade flow seen bilateral vertebral arteries. No significant change from exam of 12/31/18 Electronically signed by : Gonzalo Elizabeth MD 04/24/2020 17:18:11
== END ==
PROVIDERS: PCP Internal Medicine Adolescent Medicine; Visit Provider Thoracic Surgery (Cardiothoracic Vascular Surgery)
DX: I65.23 Occlusion and stenosis of bilateral carotid arteries (principal)
CPT/HCPCS: 93880

== ENCOUNTER → 2020-05-19 06:44 | Outpatient (CLI) | payer MEDICARE, OTHER, SELFPAY ==
--- NOTE | 2020-05-19 06:45 | CA_ITS ---
APPROVED REPORT EXAM: Comprehensive 2D, Doppler, and color-flow Echocardiogram [employer] Umpire: Elinor Garcia RT(R) Ht: 5 ft 9 in Wt: 187lbs BSA: 2.01 BP: 135/66 mmHg Indications: HTN, hyperlipidemia 2D Dimensions LVOT 1.66 cm (M/F) 1.5-2.5 M-Mode Dimensions RVDd 2.38 cm (0.9-2.6) LVDd 3.74 cm (3.5-5.7) LVDs 2.80 cm (3.5-5.7) IVSd 0.76 cm (0.6-1.1) PWd 0.81 cm (0.6-1.1) EF (Teich) 50.30% FS 25.10% EDV (Teich) 59.60 mL ESV (Teich) 29.60 mL LV Diastology E/A Ratio 0.83 Mitral Valve MV A Velocity 63.00 (40-130 cm/s) Left Ventricle Left atrium is normal size, left ventricle is normal size, there is mild concentric left ventricular hypertrophy, visually estimated ejection fraction 55% with no regional wall motion abnormality, grade 1 diastolic dysfunction seen without tissue Doppler evidence of raise left atrial pressure. Right Ventricle Right atrium and right ventricle are normal size and contractility. Aortic Valve Aortic valve is minimally thickened and fibrosed, there is no aortic stenosis or aortic insufficiency. Mitral Valve Mitral valve is grossly normal, there is mild mitral regurgitation. Pulmonic Valve Tricuspid valve is grossly normal, there is mild tricuspid regurgitation, tricuspid regurgitation jet velocity is inadequate for calculation of the right ventricular systolic pressure. Great Vessels Aortic root is normal size. Pericardium No significant pericardial effusion noted. Conclusion 1. Normal left ventricular size, mild concentric left ventricular hypertrophy, visually estimated ejection fraction 55% with no regional wall motion abnormality, grade 1 diastolic dysfunction seen without tissue Doppler evidence of raise left atrial pressure. 2. Mild mitral and tricuspid regurgitation. 3. No significant pericardial effusion noted. Electronically signed by : Vinnie Rudd, 05/19/2020 14:39:45
--- NOTE | 2020-05-19 06:48 | CA_ITS ---
APPROVED REPORT Exam: Pharmacologic Technologist: Mindy Grey, Ht: 5 ft 9 in Wt: 187 lbs BSA: 2.01 m2 HR: 54 bpm BP: 155/51 mmHg Rhythm: SINUS CAROL Medical History Medical History: HTN, Hyperlipidemia Medications: Metoprolol,,,,, Asa,,,,, Atorvastatin,,,,, ClonAZEPAM,,,,, Albuterol,,,,, Montelukast,,,,, Plavix,,,,, Fluoxetine,,,,, AZITHROMYACIN,,,,, PantoprazLE,,,,, Cardiac Risk Factors: HTN, Hyperlipidemia, , Smoking Stress Test Details Test: LEXISCAN HR Resting HR: 55 bpm Max Heart Rate (APMHR): 153 bpm Max HR Achieved: 69 bpm Target HR (85% APMHR): 130 bpm % of APMHR: 45 Recovery HR: 66 bpm BP Resting BP: 155.0/51.0 mmHg Max BP: 157.0/55.0 mmHg Recovery BP: 152.0/52.0 mmHg ECG Resting ECG: SINUS CAROL Clinical Exercise duration: 04:22 min Highest Stage Achieved: Stress ECG Conclusion LEXISCN PORTION COMPLETED. PT C/O OF SOA DURING PEAK INFUSION. NO CP. SOA DURING PEAK INFUSION. RESOLVED IN RECOVERY. OCCASIONAL PVC. LESS THAN 1.5MM ST DEPRESSION. IMAGES TO FOLLOW Test Summary RECOVERY 04:00 . . 63 . 135/ 58 . . REST 02:34 . . 55 . 155/ 51 . . Stage 1 . . . . . . . Myoview Injected Stage 1 01:00 . . 57 . . . . Stage 2 01:00 . . 66 . . . . Stage 3 01:00 . . 68 . 131/ 45 . . Stage 4 01:00 . . 67 . 157/ 55 . . Stage 4 01:22 . . 66 . 152/ 52 . Stop exercise at 04:22 RECOVERY 01:00 . . 64 . . . . RECOVERY 02:00 . . 63 . 141/ 48 . . RECOVERY 03:00 . . 61 . 141/ 48 . . RECOVERY 04:00 . . 63 . 135/ 58 . . Electronically signed by : Vinnie Rudd, 05/19/2020 11:17:34
--- NOTE | 2020-05-19 06:48 | NM_ITS ---
APPROVED REPORT Exam: Nuclear Stress Test Indication: CAD, 3 STENTS, HTN, HYPERLIPIDEMIA, TOB USE, FM HX, C.P., SOB, FATIGUE Patient Location: Outpatient Stress Tech: Evelin Grey [place] Tech:Tami Andrade, JANNA RT(R)(N) Ht: 5 ft 9 in Wt: 185 lbs Bra Size: C HR: 54 bpm BP: 155/51 mmHg BSA: 2.00 m2 BMI: 27.3 History: CAD, 3 STENTS, HTN, HYPERLIPIDEMIA, TOB USE, FM HX, C.P., SOB, FATIGUE Procedure: Patient received a 0.4 mg of intravenous Lexiscan, resting heart rate 54 bpm, resting blood pressure 155/51 mmHg, with Lexiscan maximum heart rate achived was 69 bpm which is Less than 85 % of the maximum predicted heart rate and blood pressure was 157/55 mmHg. With Lexiscan, patient denied any complaint of chest pain. Electrocardiogram Electrocardiogram showed sinus rhythm, with Lexiscan there is less than 1.[address] segment depression noted from the baseline EKG. The EKG portion of the Lexiscan Myoview is nondiagnostic. Cardiac Stress and Resting SPECT Images: Cardiac Stress and Resting SPECT images were obtained using technetium 99m Myoview 31.8 mCi stress and 10.36 mCi at rest. Gated SPECT for the analysis of segmental wall motion and calculation of the ejection fraction also done. Cardiac stress and resting SPECT images show uniform myocardial activity without segmental perfusion abnormality, computer derived ejection fraction is 59% with no regional wall motion abnormality, right ventricle is normal size and contractility. Conclusion: 1. The EKG portion of the Lexiscan Myoview is nondiagnostic. 2. No scintigraphic evidence of reversible ischemia seen, computer derived ejection fraction is 59% with no regional wall motion abnormality, right ventricle is normal size and contractility. 3. Normal Lexiscan Myoview study. Electronically signed by : Vinnie Rudd, 05/19/2020 11:19:20
== END ==
PROVIDERS: PCP Internal Medicine Adolescent Medicine; Visit Provider Urology
DX: E78.2 Mixed hyperlipidemia (principal); I15.0 Renovascular hypertension; I25.10 Atherosclerotic heart disease of native coronary artery without angina pectoris; I65.23 Occlusion and stenosis of bilateral carotid arteries; Z95.5 Presence of coronary angioplasty implant and graft
CPT/HCPCS: 78452; 93017; 93306; A9502; J2785

== ENCOUNTER → 2020-06-15 14:44 | Outpatient (CLI) | payer MEDICARE, OTHER, SELFPAY ==
--- NOTE | 2020-06-15 14:44 | CT_ITS ---
PROCEDURE: CT CHEST WO CON CLINICAL INDICATION: Lung nodule follow up LUNG NODULE FOLLOW UP PRIOR 03/13/19 [facility] TECHNIQUE: Axial images obtained with sagittal and coronal reformats. All CT scans at the facility use one or more dose reduction, viz: automated exposure control, ma/kV adjustment per patient size (including targeted exams where dose is matched to indication, i.e. head), or iterative reconstruction technique. FINDINGS: HEART AND MEDIASTINAL STRUCTURES: Coronary artery stent and or calcification noted with normal heart size. No mediastinal or hilar mass or adenopathy. There is evidence of old granulomatous disease with calcified mediastinal and hilar nodes. The mediastinal lymph nodes previously mentioned are less prominent on today's exam. LUNGS AND PLEURAL SPACES: Severe centrilobular/panlobular emphysema with evidence of old granulomatous disease. There is a subpleural nodule in the right middle lobe at 5 mm somewhat less apparent compared to the previous exam. No lobar consolidation or collapse is evident. There is evidence of old granulomatous disease with several calcified granulomas. Mild left apical scarring is noted. There are 2 small left upper lobe nodules at 2 and 3 mm unchanged BONY STRUCTURES: Degenerative changes in the thoracic spine UPPER ABDOMEN: Unremarkable. ADDITIONAL FINDINGS: No other significant abnormalities. IMPRESSION: Stable CT appearance of the chest. Mediastinal lymph nodes are smaller than when compared to the previous exam. Severe centrilobular/panlobular emphysema with old granulomatous disease. No acute finding Dictated by: Gonzalo Elizabeth MD 06/16/2020 09:21 Gonzalo Elizabeth MD in [place] 06/16/2020 09:21
== END ==
PROVIDERS: PCP Internal Medicine Adolescent Medicine; Visit Provider Internal Medicine Pulmonary Disease
DX: R91.1 Solitary pulmonary nodule (principal)
CPT/HCPCS: 71250

== ENCOUNTER → 2020-07-28 17:08 | Outpatient (CLI) | payer MEDICARE, OTHER, SELFPAY | PROVIDERS: PCP Internal Medicine Adolescent Medicine; Visit Provider Nurse Practitioner Family | DX: Z03.818 Encounter for observation for suspected exposure to other biological agents ruled out (principal); R06.02 Shortness of breath | CPT/HCPCS: U0003 ==

== ENCOUNTER → 2020-09-12 10:57 | Outpatient (POV) | payer MEDICARE, OTHER, SELFPAY | PROVIDERS: Visit Provider Dermatology | DX: Z00.00 Encounter for general adult medical examination without abnormal findings (principal) ==

== ENCOUNTER → 2020-11-23 09:45 | Outpatient (CLI) | payer MEDICARE, OTHER, SELFPAY ==
--- NOTE | 2020-11-23 10:10 | PC.NURSE ---
Spirometry Pre and Post completed without difficulty. Albuterol 0.083% given via hand held nebulizer per written protocol, Pt tolerated tx well.
== END ==
PROVIDERS: PCP Internal Medicine Adolescent Medicine; Visit Provider Internal Medicine Pulmonary Disease
DX: J44.9 Chronic obstructive pulmonary disease, unspecified (principal)
CPT/HCPCS: 94060; 94618

== ENCOUNTER → 2021-02-05 13:52 | Outpatient (CLI) | payer MEDICARE, OTHER, SELFPAY ==
[2021-02-05 14:51] LABS: Basophils # 0.1 K/mm3 (0-0.2); Basophils % 0.7 % (0.1-2.0); Eosinophils # 0.2 K/mm3 (0.0-0.4); Eosinophils % 1.2 % (0.1-12.0); Hemoglobin 13.7 g/dL (12.2-16.2); Lymphocytes # 3.1 K/mm3 (0.7-4.5); Lymphocytes % 24.3 % (10-50); Mean Corpuscular HGB Conc 32.7 g/dL (31.8-35.4); Mean Corpuscular Hemoglobin 30.5 pg (27.0-31.2); Mean Corpuscular Volume 93.2 fl (81-99); Monocytes # 0.7 K/mm3 (0.1-1.0); Monocytes % 5.3 % (1.7-9.3); Neutrophils # 8.7 K/mm3 (1.8-7.8); Neutrophils % 68.5 % (37.0-80.0); Platelet Count 258 K/mm3 (142-424); White Blood Count 12.7 K/mm3 (4.8-10.8)
[2021-02-05 15:07] LABS: Chloride 104 mmol/L (98-107); Potassium 4.7 mmoL/L (3.5-5.1); Sodium 137 mmol/L (136-145)
[2021-02-05 15:10] LABS: Alanine Aminotransferase 35 U/L (12-78); Albumin Level 4.3 g/dl (3.5-5.0); Albumin/Globulin Ratio 1.8 (1.1-1.8); Alkaline Phosphatase 147 U/L (38-126); Anion Gap 11.7 mEq/L (5-15); Aspartate Amino Transferase 33 U/L (14-36); Bilirubin,Total 0.7 mg/dl (0.2-1.3); Blood Urea Nitrogen 19 mg/dl (7-17); Calcium 9.3 mg/dl (8.4-10.2); Carbon Dioxide 26 mmol/L (22.0-30.0); Estimated Glomerular Filt Rate 45 ml/min (>60); GFR (African American) 54 ML/MIN (>60); Globulin 2.4 g/dL (1.3-3.2); Glucose 101 mg/dl (74-100); Total Protein,Serum 6.7 g/dl (6.3-8.2)
== END ==
PROVIDERS: PCP Internal Medicine Adolescent Medicine; Visit Provider Urology
DX: R06.02 Shortness of breath; E78.2 Mixed hyperlipidemia; I15.0 Renovascular hypertension; I20.9 Angina pectoris, unspecified; I65.23 Occlusion and stenosis of bilateral carotid arteries; Z95.5 Presence of coronary angioplasty implant and graft
CPT/HCPCS: 80053; 85025; U0003

== ENCOUNTER 2021-02-05 19:05 | Observation (INO) | payer MEDICARE, OTHER, SELFPAY ==
[2021-02-05] VITALS (7 sets, daily range): BP systolic 113–144; BP diastolic 48–68; PULSE 50–74; RESP 16–20; TEMP 36.5–36.8; O2SAT 94–97; BMI 27.0; BMI 26.4
--- NOTE | 2021-02-05 18:57 | ECG_ITS ---
APPROVED REPORT Exam: Resting ECG HR:79 bpm ECG Measurements Heart Rate 79 AXES [place] 162 P 58 QRSd 76 QRS 12 QT 394 T 61 QTc 451 Conclusion Sinus rhythm with fusion complexes Low voltage QRS Nonspecific ST abnormality Abnormal ECG Electronically signed by : Ephraim Lombardo, 02/08/2021 13:59:31
--- NOTE | 2021-02-05 19:13 | XR_ITS ---
PROCEDURE: XR CHEST PORTABLE CLINICAL HISTORY: cp Chest pain, heart disease, smoker COMPARISON: CR XR CHEST 2V from 01/18/2020 CR XR CHEST PORTABLE from 03/07/2020 CR XR CHEST 2V from 04/22/[address] CHEST WO CON from 06/15/2020 FINDINGS: Unremarkable cardiovascular structures. Calcified azygos lymph node is present . There is evidence of old granulomatous disease with emphysema. There are increased markings in the right lower lung zone which may be due to vascular crowding atelectasis or infiltrate. No acute bony abnormalities. IMPRESSION: Emphysema with increased markings in the right lower lung zone which may be due to vascular crowding atelectasis or infiltrate. Dictated by: Gonzalo Elizabeth MD 02/06/2021 04:53 Gonzalo Elizabeth MD in [place] 02/06/2021 04:53
--- NOTE | 2021-02-05 19:17 | PC.NURSE ---
paged dr goldberg
[2021-02-05 19:18] LABS: Basophils # 0.1 K/mm3 (0-0.2); Basophils % 0.7 % (0.1-2.0); Eosinophils # 0.2 K/mm3 (0.0-0.4); Eosinophils % 1.2 % (0.1-12.0); Hematocrit 39.1 % (37.0-47.0); Hemoglobin 12.9 g/dL (12.2-16.2); Lymphocytes % 20.8 % (10-50); Mean Corpuscular Hemoglobin 29.9 pg (27.0-31.2); Mean Corpuscular Volume 90.6 fl (81-99); Mean Platelet Volume 7.9 fl (7.4-10.4); Monocytes # 0.9 K/mm3 (0.1-1.0); Monocytes % 6.3 % (1.7-9.3); Neutrophils # 10.2 K/mm3 (1.8-7.8); Platelet Count 264 K/mm3 (142-424); Red Blood Count 4.32 M/mm3 (4.20-5.40); Red Cell Distribution Width 14.1 % (11.5-17.5); White Blood Count 14.3 K/mm3 (4.8-10.8)
--- NOTE | 2021-02-05 19:19 | PC.NURSE ---
Rad at bedside
[2021-02-05 19:27] LABS: Chloride 106 mmol/L (98-107); Sodium 135 mmol/L (136-145)
--- NOTE | 2021-02-05 19:28 | PC.NURSE ---
md oconnor with dr goldberg
[2021-02-05 19:29] LABS: Blood Urea Nitrogen 19 mg/dl (7-17); Creatinine Clearance Estimated 59 mL/min (50-200); Estimated Glomerular Filt Rate 45 ml/min (>60); GFR (African American) 54 ML/MIN (>60)
[2021-02-05 19:30] LABS: Alanine Aminotransferase 31 U/L (12-78); Albumin Level 4.1 g/dl (3.5-5.0); Albumin/Globulin Ratio 1.5 (1.1-1.8); Alkaline Phosphatase 126 U/L (38-126); Aspartate Amino Transferase 34 U/L (14-36); Bilirubin,Total 0.7 mg/dl (0.2-1.3); Calcium 8.9 mg/dl (8.4-10.2); Carbon Dioxide 23 mmol/L (22.0-30.0); Globulin 2.8 g/dL (1.3-3.2); Glucose 132 mg/dl (74-100); Total Protein,Serum 6.9 g/dl (6.3-8.2)
--- NOTE | 2021-02-05 19:44 | HMH.EDGENADL ---
ED Disposition Clinical Impression: Chest pain Qualifiers: Chest pain type: unspecified Qualified Code(s): R07.9 - Chest pain, unspecified CAD (coronary artery disease) Qualifiers: Coronary Disease-Associated Artery/Lesion type: unspecified vessel or lesion type [place] vs. transplanted heart: [place] heart Associated angina: unspecified whether angina present Qualified Code(s): I25.10 - Atherosclerotic heart disease of [place] coronary artery without angina pectoris Disposition: Admitted as Observation Condition on Discharge: Good Referrals: Ephraim Lombardo MD [Primary Care Provider] - Time of Disposition: 20:09 - Critical Care Critical Care Time: No Attestation: On 02/05/21, the high probability of a clinically significant, sudden or life threatening deterioration of the following system(s) required my full and direct attention, intervention and personal management. The time I documented below is in addition to time spent performing reported procedures but includes the following listed in this critical care notation. Medical Decision Making - Medical Records Medical records reviewed: Yes: I reviewed the patient's medical records. - [place] Inquiry Pt receiving controlled substance: No Vital Signs: 02/05/21 19:06 02/05/21 19:15 02/05/21 19:30 Temperature 98.3 F Temperature Source Oral Pulse Rate 71 72 Pulse Rate [Right Brachial] 74 Respiratory Rate 20 16 16 Blood Pressure 120/48 L 113/59 L Blood Pressure [Right Arm] 122/68 Blood Pressure Mean [Right Arm] 86 Blood Pressure Source [Right Arm] Automatic Cuff 02 Sat by Pulse Oximetry 97 97 96 Oxygen Delivery Method Nasal Cannula Oxygen Flow Rate (LPM) 2 - Lab Data Lab results reviewed: Yes: I reviewed the patient's lab results. Lab Results 02/05/21 19:10: WBC 14.3 H, RBC 4.32, Hgb 12.9, Hct 39.1, MCV 90.6, MCH 29.9, MCHC 33.0, RDW 14.1, Plt Count 264, MPV 7.9, Neut % (Auto) 71.0, Lymph % (Auto) 20.8, Lyman % (Auto) 6.3, Eos % (Auto) 1.2, Baso % (Auto) 0.7, Neut # (Auto) 10.2 H, Lymph # (Auto) 3.0, Lyman # (Auto) 0.9, Eos # (Auto) 0.2, Baso # (Auto) 0.1 02/05/21 19:10: Sodium 135 L, Potassium 4.0, Chloride 106, Carbon Dioxide 23, Anion Gap 10.0, BUN 19 H, Creatinine 1.20 H, Estimated Creat Clear 59, Estimated GFR 45 L, Est GFR ( Amer) 54 L, Glucose 132 H D, Calcium 8.9, Total Bilirubin 0.7, AST 34, ALT 31, Alkaline Phosphatase 126, Total Protein 6.9, Albumin 4.1, Globulin 2.8, Albumin/Globulin Ratio 1.5 02/05/21 19:10: Troponin I < 0.01 Result diagrams: 02/05/21 19:10 02/05/21 19:10 Orders (Tests/Meds): ED MEDICATIONS Discontinued Medications Generic Name Dose Route Start Last Admin Trade Name Freq PRN Reason Stop Dose Admin Nitroglycerin 1 gm 02/05/21 19:19 02/05/21 19:20 Nitroglycerin 1 Gm Ointment TD 02/05/21 19:20 1 gm ONCE ONE Administration ORDERS Category Date Time Status CXR --portable [XR chest portable] Stat Exams 02/05/21 19:13 Taken Troponin I Q3H Lab 02/05/21 22:30 Ordered Troponin I Q3H Lab 02/06/21 01:30 Ordered Medical Decision Narrative: 70yo F with known coronary artery disease presents secondary to chest pain. Patient does have outpatient heart cath done tomorrow. Case discussed with Dr. Paris as well as Dr. Salguero. Dr. Paris agrees to admit the patient overnight for further observation with Dr. Salguero to perform heart cath in the morning. Patient's chest pain has recurred but was treated with 1 inch of Nitropaste and the patient is now comfortable. General Adult HPI - General Chief complaint: Chest Pain Stated complaint: Chest Pain Time Seen by Provider: 02/05/21 19:20 Mode of Arrival: EMS Limitations: No Limitations Description of Symptoms (Recalled from ER Triage Doc. by RN): Pt c/o midsternal chest pain that began on (02/01/21). Pt saw Dr. Salguero today in the office and was scheduled for a heart cath tomorrow (02/06). Pt reports the pain radiates up h
[2021-02-05 20:01] LABS: Troponin I < 0.01 ng/ml (0.00-0.034)
--- NOTE | 2021-02-05 20:38 | PC.NURSE ---
notified Dr. Schulte of critical Calcium
--- NOTE | 2021-02-05 21:08 | PC.NURSE ---
patient up to floor via wheelchair.
[2021-02-05 22:50] LABS: Troponin I < 0.01 ng/ml (0.00-0.034)
[2021-02-06] VITALS (22 sets, daily range): BP systolic 91–169; BP diastolic 41–90; PULSE 50–103; RESP 12–20; TEMP 36.3–36.4; O2SAT 90–96; BMI 27.0
[2021-02-06 01:54] LABS: Troponin I < 0.01 ng/ml (0.00-0.034)
--- NOTE | 2021-02-06 02:26 | PC.NURSE ---
No acute changes since arrival to floor. Pt has denied any pain. She is currently sleeping at this time. Pt is NPO for probable heart cath in AM. EKG obtained and read by ER . Pt is sinus Kentrell on telemetry. VSSRadha CHAVEZ was consulted early in shift for request by pt for nicotine patch and something for sleep. New orders obtained. No concerns noted at this time. Will continue to monitor.
--- NOTE | 2021-02-06 07:20 | P.CONPHA_ITS ---
[facility] Pharmacy VTE Monitoring - Patient Demographics Admission date: 02/05/21 Report Date: 02/06/21 Time: 07:20 Allergies/Adverse Reactions: Patient Allergies No Known Allergies Allergy (Verified 02/05/21 13:23) Height: 1.75 m Weight: 82.724 kg Patient Problems: Current Active Problems Chest pain (Acute) CAD (coronary artery disease) (Chronic) - VTE Risk Labs: VTE Related Lab Results Hgb 12.9 g/dL (12.2-16.2) 02/05/21 19:10 Hct 39.1 % (37.0-47.0) 02/05/21 19:10 Plt Count 264 K/mm3 (142-424) 02/05/21 19:10 BUN 19 mg/dl (7-17) H 02/05/21 19:10 Creatinine 1.20 mg/dl (0.52-1.04) H 02/05/21 19:10 Estimated Creat Clear 59 mL/min (50-200) 02/05/21 19:10 Was VTE Risk Assessment Performed: Yes VTE Score: 7 VTE Risk Level: Moderate Risk - Prophylaxis VTE Prophylaxis Ordered?: Yes Types of VTE Prophylaxis: TEDS Knee High, Pharmacological Location of Applied Device: Bilateral Lower Extremeties Pharmacologic Type: Enoxaparin
[2021-02-06 08:01] LABS: Basophils # 0.1 K/mm3 (0-0.2); Basophils % 0.7 % (0.1-2.0); Eosinophils # 0.2 K/mm3 (0.0-0.4); Eosinophils % 1.9 % (0.1-12.0); Hematocrit 37.1 % (37.0-47.0); Hemoglobin 12.2 g/dL (12.2-16.2); Lymphocytes # 2.7 K/mm3 (0.7-4.5); Lymphocytes % 25.5 % (10-50); Mean Corpuscular HGB Conc 32.8 g/dL (31.8-35.4); Mean Corpuscular Hemoglobin 30.3 pg (27.0-31.2); Mean Corpuscular Volume 92.3 fl (81-99); Mean Platelet Volume 7.7 fl (7.4-10.4); Monocytes # 0.6 K/mm3 (0.1-1.0); Monocytes % 5.5 % (1.7-9.3); Neutrophils % 66.5 % (37.0-80.0); Platelet Count 209 K/mm3 (142-424); Red Blood Count 4.02 M/mm3 (4.20-5.40); Red Cell Distribution Width 14.1 % (11.5-17.5); White Blood Count 10.6 K/mm3 (4.8-10.8)
[2021-02-06 08:04] LABS: Chloride 105 mmol/L (98-107); Potassium 4.8 mmoL/L (3.5-5.1); Sodium 135 mmol/L (136-145)
[2021-02-06 08:07] LABS: Anion Gap 8.8 mEq/L (5-15); Blood Urea Nitrogen 23 mg/dl (7-17); Calcium 8.9 mg/dl (8.4-10.2); Carbon Dioxide 26 mmol/L (22.0-30.0); Creatinine Clearance Estimated 54 mL/min (50-200); Estimated Glomerular Filt Rate 41 ml/min (>60); GFR (African American) 49 ML/MIN (>60); Glucose 98 mg/dl (74-100)
--- NOTE | 2021-02-06 08:15 | HMH.CNCARD ---
History of Present Illness Consult date: 02/06/21 Requesting physician: Lio Paris Consult reason: chest pain Chief complaint: chest pain History of present illness: 70-year-old female admitted to [facility] with chest pain. Patient states throughout the night her chest pain was becoming worse accompanied with increased shortness of breath. Patient was seen in cardiology yesterday for same complaint. Patient was offered admission to facility, patient declined. Patient states she started having chest pain over the weekend. Patient describes chest pain as midsternal with radiation down the left arm and up toward the neck. Patient states the pain has been consistent since the weekend. Patient states chest pain is noticeable at rest and with exertion. Burning feeling in chest and nausea have also accompanied the chest pain. Patient denies dizziness or lightheadedness. Patient does complain of increased shortness of breath with the chest pain and with minimal exertion. Patient does have a history of COPD which is moderate. Patient does continue to smoke at least 1 pack/day. No swelling noted of the lower extremities. Patient denies daytime fatigue or weakness. Patient does have history of coronary artery disease. Last heart catheterization was and July 2019 in which she did require a stent to the circumflex artery. Patient does have a history of left main stenting. Patient continues to be on aspirin and Plavix. Patient does have history of carotid artery stenosis. CNI from 03/2020 revealed 50 to 69% bilateral ICA. CTA of the carotids in December 2018 revealed 30% bilateral ICA. equipment monitor phototypesetting reveals sinus bradycardia with no ectopy. Blood pressure is stable. Patient does have a history of hyper tension and hyperlipidemia. Serial troponins x3 were negative. CXR:IMPRESSION: Emphysema with increased markings in the right lower lung zone which may be due to vascular crowding atelectasis or infiltrate. Discussed plan of care with Dr. Salguero. Patient is to undergo left heart catheterization today due to angina. Discussed risk and benefits of undergoing left heart catheterization with right radial access. Patient verbalized understanding and is agreeable to procedure. Will obtain echocardiogram to assess LV function and valve status. Pending on the results of the echocardiogram and left heart catheterization, medication and therapy changes may be recommended. Patient is advised to stop smoking. Thank you for allowing cardiology to participate in the care of this patient. [facility] History I have reviewed the patient's past medical history: Yes Medical History: Reports:: Carotid Stenosis, Chronic Obstructive Pulmonary Disease (COPD), Coronary Artery Disease, Gastroesophageal Reflux Disease(GERD), Hyperlipidemia, Hypertension, Lung Disease Denies:: Cancer, Diabetes Mellitus Type 1, Diabetes Mellitus Type 2, Internal Pacemaker, MRSA, Seizures *Have you ever received a pneumonia vaccine?: Yes *Have you received a flu vaccine this season?: Yes Other Medical History: Reports: Anemia, Arthritis, Cataracts, Fibromyalgia Other Surgeries: Yes: Angiogram, Cardiac Catheterization, Cholecystectomy, Colonoscopy, Coronary Stent, EGD, Hysterectomy-Total, Sinus Surgery. No: Pacemaker Amputation: No Fractures: No - *Social History Last grade of school completed: High school graduate Smoking Status: Current every day smoker Tobacco Type: cigarettes # Packs/Day (cigarettes): 1 #Yrs smoked (if former smoker): 53 Alcohol Intake: never Substance Use Type: denies use *Occupational Status:: retired Housing: house Household Members: spouse *Travel in the last 8 weeks: None Family Hx:: Cancer, Coronary Artery Disease, Heart Attack, Hyperlipidemia, Hypertension, Stroke Meds Home Medications Medication Instructions Recorded Confirmed Type Aspirin [Aspir 81] 81 mg PO HS 01/30/19 11/28/20 History Atorvastatin Calcium [Lipitor 10mg 10 mg PO HS 03/13/
--- NOTE | 2021-02-06 08:31 | CA_ITS ---
APPROVED REPORT EXAM: Limited 2D Echocardiogram Broadcast Operations Technician: Laisha Lim RVT Ht: 5 ft 8 in Wt: 128lbs BSA: 1.69 BP: 1285/75 mmHg Indications: CP,CAD,COPD,GERD,STENT,HTN,HLD,SMOKER TDS-LIMITED WINDOWS-PT BREATHING,OVERLAYING LUNGS,COUGHING 2D Dimensions LVOT 1.83 cm (M/F) 1.5-2.5 M-Mode Dimensions RVDd 2.85 cm (0.9-2.6) LA Diam 4.39 cm (1.9-4.0) LVDd 3.98 cm (3.5-5.7) Ao Diam 3.50 cm (2.0-3.7) LVDs 2.07 cm (3.5-5.7) IVSd 1.33 cm (0.6-1.1) PWd 1.23 cm (0.6-1.1) EF (Teich) 79.90% FS 48.00% EDV (Teich) 69.20 mL ESV (Teich) 13.90 mL LV Diastology E Decel Time 230.00 (160-240 msec) E/A Ratio 1.1 MED E' 7.20 (< 7 cm/sec) E'/MED E' Ratio 9.06 (>14) LAT E' 7.30 (<10 cm/sec) E/LAT E' Ratio 8.93 (>14) Mitral Valve MV E Max Mateusz. 65.00 (40-130 cm/s) MV A Velocity 60.00 (40-130 cm/s) E/A Ratio 1.08 MV Decel. Time 230.00 (160-240 ms) MV PHT 67.00 ms Tricuspid Valve TR P. Velocity 276.00 cm/s RAP Estimate 10.00 mmHg RVSP 40.50 mmHg Left Ventricle Technically difficult study because of the patient factors and poor acoustic windows, endocardial surfaces are poorly visualized. Left atrium is mildly enlarged, left ventricle is normal size, mild concentric left ventricular hypertrophy, visually estimated ejection fraction 55% with no obvious regional wall motion abnormality, grade 1 diastolic dysfunction seen without tissue Doppler evidence of raise left atrial pressure. Right Ventricle Right atrium and right ventricle are mildly enlarged with normal contractility. Aortic Valve Aortic valve is thickened and calcified there is no aortic stenosis or aortic insufficiency. Mitral Valve Mitral valve leaflets are minimally thickened, there is mild mitral regurgitation. Tricuspid Valve Tricuspid grossly normal, there is mild tricuspid regurgitation, tricuspid regurgitation jet velocity is inadequate for calculation of the right ventricular systolic pressure. Pulmonic Valve Pulmonic valve is poorly visualized. Great Vessels Aortic root is normal size. Pericardium No significant pericardial effusion noted. Conclusion 1. Biatrial enlargement, normal left ventricular size, mild concentric left ventricular hypertrophy, visually estimated ejection fraction 55% with no regional wall motion abnormality, grade 1 diastolic dysfunction seen without tissue Doppler evidence of raise left atrial pressure. Endocardial surfaces are poorly visualized. 2. Mildly enlarged right ventricle with normal contractility. 3. Mild mitral and tricuspid regurgitation. 4. No significant pericardial effusion noted. Electronically signed by : Vinnie Rudd, 02/06/2021 21:09:01
--- NOTE | 2021-02-06 08:56 | HMH.HP ---
*Admission Date: 02/05/21 *Chief complaint: chest pain *History of present illness: Ms. Black is a patient that is well-known to our office. She presented to cardiology yesterday for routine follow-up and it was discussed having her come in for a heart cath. Cardiology wanted to admit her from the office yesterday but the patient declined as she wanted to go home to eat before coming in. Presented to the ER last night with worsening chest pain. H&P per cardiology note as follows: 70-year-old female admitted to [facility] with chest pain. Patient states throughout the night her chest pain was becoming worse accompanied with increased shortness of breath. Patient was seen in cardiology yesterday for same complaint. Patient was offered admission to facility, patient declined. Patient states she started having chest pain over the weekend. Patient describes chest pain as midsternal with radiation down the left arm and up toward the neck. Patient states the pain has been consistent since the weekend. Patient states chest pain is noticeable at rest and with exertion. Burning feeling in chest and nausea have also accompanied the chest pain. Patient denies dizziness or lightheadedness. Patient does complain of increased shortness of breath with the chest pain and with minimal exertion. Patient does have a history of COPD which is moderate. Patient does continue to smoke at least 1 pack/day. No swelling noted of the lower extremities. Patient denies daytime fatigue or weakness. Patient does have history of coronary artery disease. Last heart catheterization was and July 2019 in which she did require a stent to the circumflex artery. Patient does have a history of left main stenting. Patient continues to be on aspirin and Plavix. Patient does have history of carotid artery stenosis. CNI from 03/2020 revealed 50 to 69% bilateral ICA. CTA of the carotids in December 2018 revealed 30% bilateral ICA. commutator inspector reveals sinus bradycardia with no ectopy. Blood pressure is stable. Patient does have a history of hyper tension and hyperlipidemia. Serial troponins x3 were negative. Concur with history above. This morning patient describes having another episode of chest pain that was improved with placement of Nitropaste. Cardiology is already seen her this morning with plan for elective heart cath today. Significantly high risk with history of heart caths, continued smoking, and unstable angina. Patient otherwise denies nausea, vomiting, abdominal pain, confusion, syncope. [facility] History I have reviewed the patient's past medical history: Yes Medical History: Reports:: Carotid Stenosis, Chronic Obstructive Pulmonary Disease (COPD), Coronary Artery Disease, Gastroesophageal Reflux Disease(GERD), Hyperlipidemia, Hypertension, Lung Disease Denies:: Cancer, Diabetes Mellitus Type 1, Diabetes Mellitus Type 2, Internal Pacemaker, MRSA, Seizures *Have you ever received a pneumonia vaccine?: Yes *Have you received a flu vaccine this season?: Yes Other Medical History: Reports: Anemia, Arthritis, Cataracts, Fibromyalgia Other Surgeries: Yes: Angiogram, Cardiac Catheterization, Cholecystectomy, Colonoscopy, Coronary Stent, EGD, Hysterectomy-Total, Sinus Surgery. No: Pacemaker Amputation: No Fractures: No - *Social History Last grade of school completed: High school graduate Smoking Status: Current every day smoker Tobacco Type: cigarettes # Packs/Day (cigarettes): 1 #Yrs smoked (if former smoker): 53 Alcohol Intake: never Substance Use Type: denies use *Occupational Status:: retired Housing: house Household Members: spouse *Travel in the last 8 weeks: None Family Hx:: Cancer, Coronary Artery Disease, Heart Attack, Hyperlipidemia, Hypertension, Stroke Review of Systems - Review of Systems Review of systems:: pertinent systems reviewed and negative unless documented below (14 point review of systems performed, pertinent positives and negatives as per HP
--- NOTE | 2021-02-06 10:33 | PC.NURSE ---
PT OFF FLOOR WITH [employer]
--- NOTE | 2021-02-06 10:54 | IR_ITS ---
APPROVED REPORT Patient Location: Inpatient PROCEDURES Left heart catheterization Left ventriculogram Selective coronary angiogram INDICATION Unstable angina, Known coronary disease, History of unprotected left main stenting Informed consent was obtained prior to the procedure. COMPLICATIONS None Estimated Blood Loss: less than 10ml TECHNIQUE One percent lidocaine used to anesthetize the right anterior aspect of the wrist. The right radial artery was accessed via the Seldinger technique. A 6 Italian sheath was placed in the right radial artery. 2.5 mg of verapamil, 800 mcg of nitroglycerin, 1mg Lidocaine and 5000 U Heparin were given through the arterial sheath. The trap catheter was also used to perform left heart catheterization, left ventriculogram and selective coronary angiogram. At the end of the procedure the sheath was removed good hemostasis was achieved using Traclet band, patient was transferred to the postop holding area in stable condition. ANGIOGRAPHIC RESULTS The left main artery Has a stent in the proximal segment which extends in a contiguous manner into the proximal LAD. The stent is widely patent with minimal in-stent restenosis and excellent proximal distal transitioning The left anterior descending artery Has a stent originating off the left main artery as described above. The proximal portion of the stent is widely patent and has excellent transitioning into the mid LAD. The mid LAD then has 20 to 30% nonflow limiting stenosis. A first diagonal artery has a stent branching off the proximal LAD which is also widely patent free of in-stent restenosis with excellent distal transitioning The circumflex artery Is a nondominant small vessel with excellent BENJA-3 flow no angiographic evidence of jailing and no significant stenosis greater than 10% throughout its entire course The right coronary artery Is a nondominant vessel and has proximal and mid vessel 20 to 30% diffuse stenoses The GAY ventriculogram reveals 65 mmHg The left ventricular end-diastolic pressure 15 mmHg IMPRESSION Widely patent coronary arteries as described above Normal ejection fraction Mild elevated LVEDP PLAN 1. Noncardiac symptoms 2. Continue risk factor modification for coronary artery disease 3. Evaluation of noncardiac symptomatology Electronically signed by : Gordo Salguero, 02/06/2021 13:10:34
--- NOTE | 2021-02-06 18:25 | PC.NURSE ---
pt has done well since arrival back to floor post heart cath. no c/o pain, or sob. pt is eager to go home. vss. will cont. to monitor.
--- NOTE | 2021-02-06 18:33 | HMH.DCSUM ---
General - General Admission date:: 02/05/21 Discharge date: 02/06/21 HPI HPI: Ms. Black is a patient that is well-known to our office. She presented to cardiology yesterday for routine follow-up and it was discussed having her come in for a heart cath. Cardiology wanted to admit her from the office yesterday but the patient declined as she wanted to go home to eat before coming in. Presented to the ER last night with worsening chest pain. H&P per cardiology note as follows: 70-year-old female admitted to [facility] with chest pain. Patient states throughout the night her chest pain was becoming worse accompanied with increased shortness of breath. Patient was seen in cardiology yesterday for same complaint. Patient was offered admission to facility, patient declined. Patient states she started having chest pain over the weekend. Patient describes chest pain as midsternal with radiation down the left arm and up toward the neck. Patient states the pain has been consistent since the weekend. Patient states chest pain is noticeable at rest and with exertion. Burning feeling in chest and nausea have also accompanied the chest pain. Patient denies dizziness or lightheadedness. Patient does complain of increased shortness of breath with the chest pain and with minimal exertion. Patient does have a history of COPD which is moderate. Patient does continue to smoke at least 1 pack/day. No swelling noted of the lower extremities. Patient denies daytime fatigue or weakness. Patient does have history of coronary artery disease. Last heart catheterization was and July 2019 in which she did require a stent to the circumflex artery. Patient does have a history of left main stenting. Patient continues to be on aspirin and Plavix. Patient does have history of carotid artery stenosis. CNI from 03/2020 revealed 50 to 69% bilateral ICA. CTA of the carotids in December 2018 revealed 30% bilateral ICA. panel monitor reveals sinus bradycardia with no ectopy. Blood pressure is stable. Patient does have a history of hyper tension and hyperlipidemia. Serial troponins x3 were negative. Concur with history above. This morning patient describes having another episode of chest pain that was improved with placement of Nitropaste. Cardiology is already seen her this morning with plan for elective heart cath today. Significantly high risk with history of heart caths, continued smoking, and unstable angina. Patient otherwise denies nausea, vomiting, abdominal pain, confusion, syncope. Hospital Course Hospital Course: Admitted for chest pain. Cardiology saw her this morning, took her for left heart cath. No occlusive or flow-limiting lesions noted. Continue current medical management. Recommended further work-up or assessment for noncardiac cause. Patient does admit that since switching to Protonix for omeprazole she has had more reflux and heartburn symptoms. Cannot recall ever having had an EGD. Concerned that this may be a source for her pain. Would benefit from further work-up for GI cause as an outpatient. Resume current home regimen. Patient otherwise antsy to get home and has no complaints. Objective Vital signs: Temp Pulse Resp BP Pulse Ox 97.4 F L 77 16 126/72 91 L 02/06/21 08:00 02/06/21 17:35 02/06/21 17:35 02/06/21 17:35 02/06/21 17:35 Narrative: - Constitutional no acute distress, average body habitus - *Routine HEENT Exam Head: Present: normocephalic Eye: Present: EOMI, PERRL ENT: Present: mucous membranes moist - *Routine Neck Exam Present: supple. Absent: lymphadenopathy - Routine Chest/Breast/Axilla Exam Chest wall: Present: tenderness (Throughout anterior chest muscles) - *Routine Respiratory Exam Present: prolonged expiratory phase, wheezes (Faint bilateral). Absent: crackles - *Routine Cardiovascular Exam Present: RRR - *Routine Abdominal Exam Present: soft, normoactiv
== END 2021-02-06 06:45 | disposition home or self-care (01) ==
LOC: ER 20:09 → 2ND 20:38
PROVIDERS: Internal Medicine; Admitting Provider Internal Medicine Adolescent Medicine; Emergency Provider Family Medicine; PCP Internal Medicine Adolescent Medicine; Visit Provider Internal Medicine Adolescent Medicine
DX: R07.89 Other chest pain (principal); I25.110 Atherosclerotic heart disease of native coronary artery with unstable angina pectoris; I65.23 Occlusion and stenosis of bilateral carotid arteries; F17.210 Nicotine dependence, cigarettes, uncomplicated; Z71.6 Tobacco abuse counseling; E78.2 Mixed hyperlipidemia; J44.9 Chronic obstructive pulmonary disease, unspecified; M79.7 Fibromyalgia; T82.855A Stenosis of coronary artery stent, initial encounter; Y83.1 Surgical operation with implant of artificial internal device as the cause of abnormal reaction of the patient, or of later complication, without mention of misadventure at the time of the procedure; K21.9 Gastro-esophageal reflux disease without esophagitis; M19.90 Unspecified osteoarthritis, unspecified site; I12.9 Hypertensive chronic kidney disease with stage 1 through stage 4 chronic kidney disease, or unspecified chronic kidney disease; N18.30 Chronic kidney disease, stage 3 unspecified; Z82.49 Family history of ischemic heart disease and other diseases of the circulatory system
CPT/HCPCS: 36415; 71045; 80048; 80053; 84484; 85025; 93005; 93306; 93308; 93458; 94640; 99152; 99283; C1725; C1769; G0378; J1644; J2405; Q9967; U0003

== ENCOUNTER → 2021-04-05 18:06 | Outpatient (CLI) | payer MEDICARE, OTHER, SELFPAY | PROVIDERS: Visit Provider Internal Medicine Adolescent Medicine | DX: R10.30 Lower abdominal pain, unspecified (principal) | CPT/HCPCS: 87086; 87088; 87186 ==

== ENCOUNTER → 2021-04-06 10:16 | Outpatient (CLI) | payer MEDICARE, OTHER, SELFPAY | PROVIDERS: Visit Provider Internal Medicine Gastroenterology | DX: Z01.812 Encounter for preprocedural laboratory examination (principal); Z20.822 Contact with and (suspected) exposure to COVID-19; Z13.810 Encounter for screening for upper gastrointestinal disorder | CPT/HCPCS: U0003 ==

== ENCOUNTER 2021-04-09 11:36 | Day surgery (SDC) | payer MEDICARE, OTHER, SELFPAY ==
[2021-04-03 12:33] VITALS: BMI 26.4
[2021-04-09] VITALS (7 sets, daily range): BP systolic 110–153; BP diastolic 56–99; PULSE 52–62; RESP 18; TEMP 36.2; O2SAT 94–97
--- NOTE | 2021-04-09 13:05 | P.PN_ITS ---
[facility] Anesthesia Checklist - Patient Identification Patient Identification: Arm Band - Structural Data Admitted From: Home Planned Operative Procedure/s: egd Consent for Planned Operative Procedure(s) Verified: Yes Verified Documents: Surgical Consent, History and Physical - NPO Status Verified Time NPO: 00:00 - Additional verifications Anesthesia Reactions: No - Airway Assessment C-Spine Mobility Assessed: Yes (mp2) TMJ Mobility Assessed: Yes Dentition: Dentures-good fit (upper) - Neurological Assessment Level of Consciousness: Awake, Alert - Anesthesia Plan Anesthesia Risk discussed: Yes Anesthesia Plan: Verified ASA Class: III Anesthesia Type: MAC [facility] History I have reviewed the patient's past medical history: Yes Medical History: Reports:: Carotid Stenosis, Chronic Obstructive Pulmonary Disease (COPD), Coronary Artery Disease, Gastroesophageal Reflux Disease(GERD), Hyperlipidemia, Hypertension, Lung Disease Denies:: Cancer, Diabetes Mellitus Type 1, Diabetes Mellitus Type 2, Internal Pacemaker, MRSA, Seizures *Have you ever received a pneumonia vaccine?: Yes *Have you received a flu vaccine this season?: Yes Other Medical History: Reports: Anemia, Arthritis, Cataracts, Fibromyalgia Anesthesia experience/problems:: nac Other Surgeries: Yes: Angiogram, Cardiac Catheterization, Cholecystectomy, Colonoscopy, Coronary Stent, EGD, Hysterectomy-Total, Sinus Surgery. No: Pacemaker Amputation: No Fractures: No - *Social History Last grade of school completed: Some college Smoking Status: Current every day smoker Tobacco Type: cigarettes # Packs/Day (cigarettes): 1 #Yrs smoked (if former smoker): 53 Alcohol Intake: never Substance Use Type: denies use *Occupational Status:: retired Housing: house Household Members: spouse *Travel in the last 8 weeks: None Family Hx:: Cancer, Heart Attack, Hyperlipidemia, Hypertension
--- NOTE | 2021-04-09 13:29 | HMH.PROC ---
[facility] Procedure Note Procedure Note:: Upper Endoscopy Procedure Report: Esophagogastroduodenoscopy with cold snare polypectomy, cold biopsies and TTS balloon dilation Endoscopost: Daniel Corrales II, MD Referring Physician: Ephraim Lombardo M.D. Date of Procedure: April 09, 2021 Equipment: Olympus GIF 190 standard upper endoscope Sedation: MAC sedation Indications: Mrs. Black is a 70-year-old female who is here for diagnostic upper endoscopy secondary to noncardiac chest pain/esophageal chest pain. The patient does report epigastric and retrosternal pain and discomfort. She originally thought this may be cardiac chest pain. She does have a prior history of CASHD and 4 cardiac stents. Her most recent heart catheterization showed no coronary blockages. The patient does report moderate bloating and belching. She has had some nausea and early satiety. She reports intermittent dysphagia and globus sensation. This is her first upper endoscopy. She does report regular bowel function. She did have a colonoscopy in February 2018 and had a larger advanced adenomatous polyp (18 to 19 mm) in the cecum and 4 additional adenomatous polyps that were smaller. I did recommend 2-year surveillance. Procedure: Prior to the procedure, a history and physical exam was performed, and patient's medications and allergies were reviewed. The risks, benefits and alternatives of the sedation and procedure were discussed with the patient. All questions were answered and informed consent was obtained. The patient was brought to the procedure room. Patient identification and proposed procedure were verified by the physician and the nurse. The patient was placed in a left lateral decubitus position and the scope was passed under direct vision. Throughout the procedure, the patient's blood pressure, pulse, and oxygen saturations were monitored continuously. The upper GI endoscopy was accomplished without difficulty. The patient tolerated the procedure well. Findings: The scope was passed directly into the upper esophagus and advanced to the third portion of the duodenum. There was an 8 mm adenomatous polyp in the second portion of the duodenum that was removed via cold snare polypectomy. The scope was withdrawn through a normal duodenal bulb and pylorus into the stomach. There was moderate bile reflux with linear reactive gastropathy of the antrum and the body of the stomach. The remainder of the fundus of the stomach was grossly normal. Upon retroflexion there was a small 1-2 cm sliding hiatal hernia. 2 biopsies were taken in the antrum and along the lesser curvature for histology to rule out gastritis and/or H pylori. The scope was then withdrawn into the esophagus. There was no evidence of reflux esophagitis or Poole's. There were strong tertiary contractions and evidence of moderate esophageal dysmotility. The entire esophagus was dilated to 60 Latvian/20 mm with a TTS hydrostatic balloon. There was some resistance at the cricopharyngeus (i.e. cricopharyngeal spasm). The remainder of the esophageal mucosa was normal. Impression: 1. Cricopharyngeal spasm status post dilation to 20 mm 2. Nonerosive GERD with moderate esophageal dysmotility and very small sliding 1 to 2 cm hiatal hernia 3. Bile reflux with linear reactive gastropathy 4. Duodenal polyp (second portion)?8 mm (probable adenomatous polyp) Plan: I will follow-up the histology/pathology and if this is an adenomatous polyp of the duodenum, I would recommend repeat surveillance EGD in 2 years. The patient does have functional dyspepsia with functional GERD and esophageal dyskinesia/spasm. We will discuss additional dietary measures and treatment options. Due to the patient's prior advanced adenoma and adenomatous polyps, I would recommend repeat surveillance colonoscopy presently.
== END 2021-04-09 14:32 | disposition home or self-care (01) ==
LOC: OUTP 11:38
PROVIDERS: PCP Internal Medicine Adolescent Medicine; Visit Provider Internal Medicine Gastroenterology
PROC: 0DJ08ZZ Inspection of Upper Intestinal Tract, Via Natural or Artificial Opening Endoscopic (ICD-10-PCS; CPT 43235; principal; 2021-04-09 12:30)
DX: J39.2 Other diseases of pharynx (principal); K21.9 Gastro-esophageal reflux disease without esophagitis; K22.4 Dyskinesia of esophagus; K44.9 Diaphragmatic hernia without obstruction or gangrene; K31.9 Disease of stomach and duodenum, unspecified; K63.5 Polyp of colon; Z86.010 Personal history of colon polyps; I25.10 Atherosclerotic heart disease of native coronary artery without angina pectoris; Z95.818 Presence of other cardiac implants and grafts; J44.9 Chronic obstructive pulmonary disease, unspecified; E78.5 Hyperlipidemia, unspecified; I10 Essential (primary) hypertension
CPT/HCPCS: 43239; 43249; 43251; 88305; C1726

== ENCOUNTER → 2021-04-10 17:26 | Outpatient (CLI) | payer MEDICARE, OTHER, SELFPAY ==
[2021-04-10 18:01] LABS: Basophils % 0.4 % (0.1-2.0); Eosinophils # 0.1 K/mm3 (0.0-0.4); Eosinophils % 0.8 % (0.1-12.0); Hematocrit 36.9 % (37.0-47.0); Hemoglobin 12.6 g/dL (12.2-16.2); Lymphocytes # 2.5 K/mm3 (0.7-4.5); Lymphocytes % 25.5 % (10-50); Mean Corpuscular HGB Conc 34.2 g/dL (31.8-35.4); Mean Corpuscular Hemoglobin 30.6 pg (27.0-31.2); Mean Corpuscular Volume 89.4 fl (81-99); Mean Platelet Volume 8.4 fl (7.4-10.4); Monocytes # 0.5 K/mm3 (0.1-1.0); Monocytes % 5.5 % (1.7-9.3); Neutrophils # 6.6 K/mm3 (1.8-7.8); Neutrophils % 67.8 % (37.0-80.0); Platelet Count 263 K/mm3 (142-424); Red Blood Count 4.12 M/mm3 (4.20-5.40); Red Cell Distribution Width 13.7 % (11.5-17.5); White Blood Count 9.7 K/mm3 (4.8-10.8)
[2021-04-10 18:33] LABS: Chloride 104 mmol/L (98-107); Sodium 139 mmol/L (136-145)
[2021-04-10 18:34] LABS: Potassium 4.1 mmoL/L (3.5-5.1)
[2021-04-10 18:36] LABS: Alanine Aminotransferase 12 U/L (12-78); Albumin/Globulin Ratio 1.7 (1.1-1.8); Alkaline Phosphatase 108 U/L (38-126); Anion Gap 13.1 mEq/L (5-15); Aspartate Amino Transferase 26 U/L (14-36); Bilirubin,Total 0.6 mg/dl (0.2-1.3); Blood Urea Nitrogen 13 mg/dl (7-17); Calcium 8.6 mg/dl (8.4-10.2); Carbon Dioxide 26 mmol/L (22.0-30.0); Estimated Glomerular Filt Rate 62 ml/min (>60); GFR (African American) 75 ML/MIN (>60); Globulin 2.4 g/dL (1.3-3.2); Glucose 83 mg/dl (74-100); Total Protein,Serum 6.4 g/dl (6.3-8.2)
[2021-04-10 19:08] LABS: Thyroid Stimulating Hormone 0.39 uIU/mL (0.465-4.68)
[2021-04-10 20:01] LABS: Vitamin B12 972 pg/mL (239-931)
[2021-04-10 21:26] LABS: 25-OH Vitamin D, Total 34.5 ng/mL (30-100)
== END ==
PROVIDERS: Visit Provider Nurse Practitioner Family
DX: N30.00 Acute cystitis without hematuria (principal); R53.83 Other fatigue; J44.1 Chronic obstructive pulmonary disease with (acute) exacerbation
CPT/HCPCS: 80053; 82306; 82607; 84443; 85025

== ENCOUNTER → 2021-06-16 09:11 | Outpatient (CLI) | payer MEDICARE, OTHER, SELFPAY | PROVIDERS: Visit Provider Internal Medicine Gastroenterology | DX: Z01.812 Encounter for preprocedural laboratory examination (principal); Z20.822 Contact with and (suspected) exposure to COVID-19; Z12.11 Encounter for screening for malignant neoplasm of colon | CPT/HCPCS: U0003 ==

== ENCOUNTER 2021-06-18 11:46 | Day surgery (SDC) | payer MEDICARE, OTHER, SELFPAY ==
[2021-06-12 13:30] VITALS: BMI 25.7
[2021-06-18 12:01] VITALS: BP 156/63; PULSE 70; RESP 20; TEMP 37.1; O2SAT 95
[2021-06-18 13:36] VITALS: O2SAT 95
--- NOTE | 2021-06-18 14:17 | HMH.PROC ---
[facility] Procedure Note Procedure Note:: Colonoscopy Procedure Report: Colonoscopy with cold snare polypectomy Endoscopist: Daniel Corrales II, MD Referring physician: Ephraim Lombardo M.D. Date of Procedure: June 18, 2021 Equipment: Olympus 190 variable stiffness pediatric colonoscope Sedation: MAC sedation Indication: Mrs. Black is a 71-year-old female who is here for follow-up surveillance colonoscopy secondary to a personal history of adenomatous colon polyps. She had a colonoscopy with me in February 2018 and had a 19 mm advanced adenoma and 4 additional tubular adenomas that were removed. She more recently had an EGD in March 2021 because of esophageal chest pain. She did have esophageal spasm and a duodenal adenomatous polyp. The patient has been on a fiber bowel regimen (combined MiraLAX plus Metamucil daily). She is improved. She reports no rectal bleeding, abdominal pain, weight loss or change in bowel habits. Procedure: Prior to the procedure, a history and physical exam was performed, and patient's medications and allergies were reviewed. The risks, benefits and alternatives of the sedation and procedure were discussed with the patient. All questions were answered and informed consent was obtained. The patient was brought to the procedure room. Patient identification and proposed procedure were verified by the physician and the nurse. The patient was placed in a left lateral decubitus position and the scope was passed under direct vision. Throughout the procedure, the patient's blood pressure, pulse, and oxygen saturations were monitored continuously. The colonoscopy was accomplished without difficulty. The patient tolerated the procedure well. Findings: On digital rectal examination there was normal rectal tone. There were no external hemorrhoids. The colonoscope was introduced through the anal canal to the rectum and advanced to the cecum. The ileocecal valve and appendiceal orifice were identified. The scope was advanced a short distance into the ileum which appeared grossly normal. The scope was then withdrawn into the colon. There were 9 colon polyps (cecum x1 (12 mm), ascending x5 (3, 4, 5, 5 and 7 mm), transverse x2 (5 and 5 mm) and sigmoid x1 (3 mm)) which were all removed via cold snare polypectomy. There were scattered diverticuli throughout the descending and sigmoid colon (LEFT colon). The rectum itself was normal. Upon retroflexion within the rectum there were grade 1-2 internal hemorrhoids. The preparation was good throughout with [place] Preparation Score of 8 out of 9. The cecal time was 20 minutes. Impression: 1. Colonic polyps x9 2. Left-sided diverticulosis 3. Grade 1-2 internal hemorrhoids Plan: I will follow up the polyp histology and recommend repeat surveillance colonoscopy again in 3 years. I would encourage continuation of the fiber bowel regimen (combined MiraLAX plus Metamucil) daily.
[2021-06-18 14:20] VITALS: BP 144/65; PULSE 61; RESP 18; TEMP 36.5; O2SAT 95
[2021-06-18 14:30] VITALS: BP 164/71; PULSE 58; RESP 18; O2SAT 95
--- NOTE | 2021-06-18 14:38 | HMH.ANESCL ---
[facility] Anesthesia Checklist - Structural Data Admitted From: Home Planned Operative Procedure/s: colonoscopy Consent for Planned Operative Procedure(s) Verified: Yes - Additional verifications Anesthesia Reactions: No - Airway Assessment C-Spine Mobility Assessed: Yes TMJ Mobility Assessed: Yes Dentition: Poor Dentition - Neurological Assessment Level of Consciousness: Awake, Alert, Appropriate - Anesthesia Plan Anesthesia Risk discussed: Yes Anesthesia Plan: Verified ASA Class: III Anesthesia Type: MAC [facility] History I have reviewed the patient's past medical history: Yes Medical History: Reports:: Carotid Stenosis, Chronic Obstructive Pulmonary Disease (COPD), Coronary Artery Disease, Gastroesophageal Reflux Disease(GERD), Hyperlipidemia, Hypertension, Lung Disease Denies:: Cancer, Diabetes Mellitus Type 1, Diabetes Mellitus Type 2, Internal Pacemaker, MRSA, Seizures *Have you ever received a pneumonia vaccine?: Yes *Have you received a flu vaccine this season?: Yes Other Medical History: Reports: Anemia, Arthritis, Cataracts, Fibromyalgia Anesthesia experience/problems:: none Laterality Cases: Bilateral: Cataract Other Surgeries: Yes: Angiogram, Cardiac Catheterization, Cholecystectomy, Colonoscopy, Coronary Stent, EGD, Hysterectomy-Total, Sinus Surgery. No: Pacemaker Amputation: No Fractures: No - *Social History Last grade of school completed: Some college Smoking Status: Current every day smoker Tobacco Type: cigarettes # Packs/Day (cigarettes): 1 #Yrs smoked (if former smoker): 53 Alcohol Intake: current Alcohol Intake Frequency:: a few times a month Substance Use Type: denies use *Occupational Status:: retired Housing: house Household Members: spouse *Travel in the last 8 weeks: None Family Hx:: Cancer, Heart Attack, Hyperlipidemia, Hypertension
[2021-06-18 14:40] VITALS: BP 178/69; PULSE 58; RESP 18; O2SAT 95
[2021-06-18 15:05] VITALS: BP 160/67; PULSE 55; RESP 18; O2SAT 95
== END 2021-06-18 15:09 | disposition home or self-care (01) ==
LOC: OUTP 11:48
PROVIDERS: PCP Internal Medicine Adolescent Medicine; Visit Provider Internal Medicine Gastroenterology
PROC: 0DJD8ZZ Inspection of Lower Intestinal Tract, Via Natural or Artificial Opening Endoscopic (ICD-10-PCS; CPT 45378; principal; 2021-06-18 13:00)
DX: Z12.11 Encounter for screening for malignant neoplasm of colon (principal); Z86.010 Personal history of colon polyps; Z87.19 Personal history of other diseases of the digestive system; K63.5 Polyp of colon; K57.30 Diverticulosis of large intestine without perforation or abscess without bleeding; K64.0 First degree hemorrhoids; I65.29 Occlusion and stenosis of unspecified carotid artery; J44.9 Chronic obstructive pulmonary disease, unspecified; I25.10 Atherosclerotic heart disease of native coronary artery without angina pectoris; K21.9 Gastro-esophageal reflux disease without esophagitis; E78.5 Hyperlipidemia, unspecified; I10 Essential (primary) hypertension
CPT/HCPCS: 45385; 88305

== ENCOUNTER → 2021-06-20 15:35 | Outpatient (CLI) | payer MEDICARE, OTHER, SELFPAY | PROVIDERS: Visit Provider Nurse Practitioner Family | DX: R30.0 Dysuria (principal) | CPT/HCPCS: 87086 ==

== ENCOUNTER → 2021-07-26 18:35 | Outpatient (CLI) | payer MEDICARE, OTHER, SELFPAY | PROVIDERS: Visit Provider Internal Medicine Adolescent Medicine | DX: R30.0 Dysuria (principal) | CPT/HCPCS: 87086 ==

== ENCOUNTER → 2021-08-08 08:46 | Outpatient (CLI) | payer MEDICARE, OTHER, SELFPAY ==
--- NOTE | 2021-08-08 09:02 | CT_ITS ---
PROCEDURE: CT CHEST WO CON CLINICAL INDICATION: COUGH, COPD EXACERBATION COMPARISON: [facility] DIG MAMM-SCREEN JAMEY from 01/19/[address] CHEST WO CON from 06/15/2020 TECHNIQUE: Axial images obtained with sagittal and coronal reformats. All CT scans at the facility use one or more dose reduction, viz: automated exposure control, ma/kV adjustment per patient size (including targeted exams where dose is matched to indication, i.e. head), or iterative reconstruction technique. FINDINGS: HEART AND MEDIASTINAL STRUCTURES: Prominent calcified azygos lymph node as before. Coronary artery stents and coronary artery calcification noted. There is minimal thickening of the pericardium anteriorly and inferiorly which is slightly increased compared to the previous exam. LUNGS AND PLEURAL SPACES: Severe panlobular emphysema with bullous change in the right apex. Small subpleural nodule present in the left upper lobe anteriorly unchanged at approximately 3 mm. No suspicious nodules. No effusions or infiltrates. BONY STRUCTURES: Degenerative changes of the thoracic spine. There is minimal wedging anteriorly of T8 unchanged. UPPER ABDOMEN: See abdomen report ADDITIONAL FINDINGS: There is a small subcutaneous nodule in the medial aspect of the left breast just medial to the nipple the measuring 5 mm. This did appear to be present on an older mammogram of 01/19/2014 and may be due to small cyst or fibroadenoma IMPRESSION: No significant change with no acute finding. Old granulomatous disease. Severe panlobular emphysema with bullous changes Dictated by: Gonzalo Elizabeth MD 08/09/2021 10:17 Gonzalo Elizabeth MD in [place] 08/09/2021 10:17
--- NOTE | 2021-08-08 09:03 | CT_ITS ---
PROCEDURE: CT ABDOMEN PELVIS WO/W CON CLINICAL INDICATION: GROSS HEMATURIA COMPARISON: No exams were available for comparison TECHNIQUE: IV Contrast: 75ML Isovue 370 Oral Contrast 450ml Redicat Axial images obtained with sagittal and coronal reformats. All CT scans at the facility use one or more dose reduction, viz: automated exposure control, ma/kV adjustment per patient size (including targeted exams where dose is matched to indication, i.e. head), or iterative reconstruction technique. FINDINGS: LOWER THORAX: See chest CT report ABDOMEN & PELVIS: The liver, spleen, adrenal glands, pancreas, and kidneys have an unremarkable appearance. No renal or ureteral calculi. No hydronephrosis. No intestinal obstruction or free air. No evidence of appendicitis or diverticulitis. Prior hysterectomy. No pelvic mass or abnormal fluid collection. Urinary bladder has an unremarkable appearance. No acute bony anomalies. IMPRESSION: No acute finding. No renal or ureteral calculi. No hydronephrosis or renal mass. Dictated by: Gonzalo Elizabeth MD 08/09/2021 10:29 Gonzalo Elizabeth MD in [facility] 08/09/2021 10:29
[2021-08-08 09:11] LABS: Blood Urea Nitrogen 11 mg/dl (7-17)
[2021-08-08 09:12] LABS: Estimated Glomerular Filt Rate 71 ml/min (>60); GFR (African American) 86 ML/MIN (>60)
== END ==
PROVIDERS: PCP Internal Medicine Adolescent Medicine; Visit Provider Internal Medicine Adolescent Medicine
DX: R05.9 Cough, unspecified (principal); J44.1 Chronic obstructive pulmonary disease with (acute) exacerbation; R31.0 Gross hematuria
CPT/HCPCS: 36415; 71250; 74178; 82565; 84520; Q9967

== ENCOUNTER 2021-10-22 04:46 | Emergency (ER) | payer MEDICARE, OTHER, SELFPAY ==
[2021-10-22 04:45] VITALS: BP 170/85; PULSE 85; RESP 16; TEMP 36.7; O2SAT 98; BMI 27.0
[2021-10-22 04:58] VITALS: BMI 27.1
[2021-10-22 05:01] VITALS: BP 170/85; PULSE 88; RESP 25; O2SAT 97
--- NOTE | 2021-10-22 05:02 | XR_ITS ---
PROCEDURE INFORMATION: Exam: XR Chest Exam date and time: 10/22/2021 5:02 AM Age: 71 years old Clinical indication: Shortness of breath; Additional info: SOA, dsypnea TECHNIQUE: Imaging protocol: XR of the chest. Views: 1 view. COMPARISON: CT CHEST WO CON 08/08/2021 9:25 AM FINDINGS: Lungs: Multiple granulomas are noted. The lungs remain clear. Pleural spaces: Unremarkable. No pleural effusion. No pneumothorax. Heart/Mediastinum: Some calcified mediastinal lymphadenopathy is noted. Bones/joints: Unremarkable. IMPRESSION: No acute cardiopulmonary disease.
[2021-10-22 05:10] LABS: ABG Base Excess 2.7 mmol/L (-2.4-2.3); ABG HCO3 28.1 mmhg (22.0-26.0); ABG Oxygen Saturation 95 % (90-100); ABG PH 7.36 mmol/L (7.35-7.45); ABG PO2 79.7 mmhg (80-100); ABG TCO2 29.7 mmhg (23-27)
[2021-10-22 05:10] LABS: Coronavirus 19, PCR Not Detected (NotDetected); Influenza A, PCR Not Detected (NotDetected); Influenza B, PCR Not Detected (NotDetected)
--- NOTE | 2021-10-22 05:11 | ECG_ITS ---
APPROVED REPORT Exam: Resting ECG HR:89 bpm ECG Measurements Heart Rate 89 AXES MD 152 P -5 QRSd 80 QRS 61 QT 376 T 70 QTc 457 Conclusion Normal sinus rhythm Low voltage QRS Cannot rule out Anterior infarct, age undetermined Abnormal ECG Electronically signed by : Ephraim Lombardo MD 10/24/2021 13:27:49
[2021-10-22 05:14] LABS: Basophils # 0.1 K/mm3 (0-0.2); Basophils % 0.8 % (0.1-2.0); Eosinophils # 0.2 K/mm3 (0.0-0.4); Eosinophils % 1.6 % (0.1-12.0); Hematocrit 37.2 % (37.0-47.0); Hemoglobin 11.4 g/dL (12.2-16.2); Lymphocytes % 19.5 % (10-50); Mean Corpuscular HGB Conc 30.8 g/dL (31.8-35.4); Mean Corpuscular Hemoglobin 29.3 pg (27.0-31.2); Mean Corpuscular Volume 95.1 fl (81-99); Mean Platelet Volume 8.3 fl (7.4-10.4); Monocytes # 0.7 K/mm3 (0.1-1.0); Monocytes % 4.3 % (1.7-9.3); Neutrophils # 11.4 K/mm3 (1.8-7.8); Neutrophils % 73.8 % (37.0-80.0); Platelet Count 245 K/mm3 (142-424); Red Blood Count 3.91 M/mm3 (4.20-5.40); Red Cell Distribution Width 14.4 % (11.5-17.5); White Blood Count 15.4 K/mm3 (4.8-10.8)
[2021-10-22 05:15] LABS: Allen's Test Acceptable; Oxygen 4L %; Source Right Brachial
[2021-10-22 05:16] LABS: MANUAL DIFFERENTIAL MANUAL DIFFERENTIAL (MANUAL DIFF)
[2021-10-22 05:18] LABS: ABG PCO2 50.9 mmhg (35.0-45.0)
--- NOTE | 2021-10-22 05:18 | PC.NURSE ---
Blood gas results called by Mendy with respiratory. notified.
[2021-10-22 05:23] LABS: Hypochromasia 1+; Lymphocytes % 14 % (10-50); Monocytes % 6 % (2-9); Neutrophils % 74 % (42-76); Platelet Estimate Normal; Total Cells Counted 100
[2021-10-22 05:26] LABS: Alanine Aminotransferase 23 U/L (12-78); Albumin Level 3.9 g/dl (3.5-5.0); Albumin/Globulin Ratio 1.7 (1.1-1.8); Alkaline Phosphatase 114 U/L (38-126); Anion Gap 4.9 mEq/L (5-15); Aspartate Amino Transferase 35 U/L (14-36); Bilirubin,Total 0.3 mg/dl (0.2-1.3); Blood Urea Nitrogen 10 mg/dl (7-17); Calcium 8.6 mg/dl (8.4-10.2); Carbon Dioxide 37 mmol/L (22.0-30.0); Chloride 103 mmol/L (98-107); Creatinine Clearance Estimated 70 mL/min (50-200); Estimated Glomerular Filt Rate 62 ml/min (>60); GFR (African American) 75 ML/MIN (>60); Globulin 2.3 g/dL (1.3-3.2); Glucose 122 mg/dl (74-100); Lactic Acid 1.1 mmol/L (0.7-2.1); Magnesium 1.6 mg/dl (1.6-2.3); Potassium 3.9 mmoL/L (3.5-5.1); Sodium 141 mmol/L (136-145); Total Protein,Serum 6.2 g/dl (6.3-8.2)
[2021-10-22 05:30] VITALS: BP 148/62; PULSE 80; RESP 28; O2SAT 96
[2021-10-22 05:31] LABS: C-Reactive Protein 8.1 mg/L (0-4)
[2021-10-22 05:40] LABS: NT Pro Brain Natriuretic Pep. 716 pg/mL (0-125); Troponin I < 0.01 ng/ml (0.00-0.034)
[2021-10-22 05:42] LABS: Erythrocyte Sedimentation Rate 22 mm/hr (0-30)
[2021-10-22 05:44] LABS: Procalcitonin 0.056 ng/mL (0.0-2.0)
[2021-10-22 07:04] LABS: Appearance,Urine CLEAR (Clear); Bilirubin,Urine Negative (Negative); Blood, Urine Negative (Negative); Color,Urine YELLOW (Yellow); Glucose,Urine (UA) Negative (Negative); Ketones,Urine Negative (Negative); Leukocyte Esterase,Urine Negative (Negative); Microscopic, Urine URINE MICROSCOPIC (MICROSCOPIC); Nitrate,Urine Negative (Negative); Protein,Urine Negative (Negative); Specific Gravity, Urine 1.015 (1.005-1.030); Urobilinogen,Urine 0.2 EU/dl (0.2)
--- NOTE | 2021-10-22 07:14 | HMH.EDSOB ---
ED Disposition Clinical Impression: Acute exacerbation of chronic obstructive airways disease Disposition: Home, Self-Care Condition on Discharge: Good Instructions: DI for Chronic Obstructive Pulmonary Disease Additional Instructions: fluids and use meds and call pcp this am Prescriptions: predniSONE [Prednisone 20mg Tab] 20 mg PO BID #10 tab Transmission Status: Pending to [facility] Referrals: Ephraim Lombardo MD [Primary Care Provider] - - Critical Care Critical Care Time: No Attestation: On 10/22/21, the high probability of a clinically significant, sudden or life threatening deterioration of the following system(s) required my full and direct attention, intervention and personal management. The time I documented below is in addition to time spent performing reported procedures but includes the following listed in this critical care notation. Medical Decision Making - Medical Records Medical records reviewed: Yes: I reviewed the patient's medical records. - Noble Inquiry Pt receiving controlled substance: No Vital Signs: 10/22/21 04:45 10/22/21 05:01 10/22/21 05:30 Temperature 98.1 F Temperature Source Oral Pulse Rate 88 80 Pulse Rate [Apical] 85 Respiratory Rate 16 25 H 28 H Blood Pressure 170/85 H 148/62 H Blood Pressure [Right Arm] 170/85 H Blood Pressure Mean 116 Blood Pressure Mean [Right Arm] 113 Blood Pressure Source [Right Arm] Automatic Cuff Blood Pressure Position [Right Arm] Sitting 02 Sat by Pulse Oximetry 98 97 96 Oxygen Delivery Method Room Air Nasal Cannula Nasal Cannula Oxygen Flow Rate (LPM) 4 4 - Lab Data Lab results reviewed: Yes: I reviewed the patient's lab results. Lab Results 10/22/21 04:45: WBC 15.4 H, RBC 3.91 L, Hgb 11.4 L, Hct 37.2, MCV 95.1, MCH 29.3, MCHC 30.8 L, RDW 14.4, Plt Count 245, MPV 8.3, Neut % (Auto) 73.8, Lymph % (Auto) 19.5, [place] % (Auto) 4.3, Eos % (Auto) 1.6, Baso % (Auto) 0.8, Neut # (Auto) 11.4 H, Lymph # (Auto) 3.0, [place] # (Auto) 0.7, Eos # (Auto) 0.2, Baso # (Auto) 0.1, Total Counted 100, Neutrophils % (Manual) 74, Band Neutrophils % 6.0, Lymphocytes % (Manual) 14, Monocytes % (Manual) 6, Platelet Estimate Normal, Hypochromasia 1+, ESR 22 10/22/21 04:45: Sodium 141, Potassium 3.9, Chloride 103, Carbon Dioxide 37 H, Anion Gap 4.9 L, BUN 10, Creatinine 0.90, Estimated Creat Clear 70, Estimated GFR 62, Est GFR ( Amer) 75, Glucose 122 H, Calcium 8.6, Total Bilirubin 0.3, AST 35, ALT 23, Alkaline Phosphatase 114, C-Reactive Protein 8.1 H, Total Protein 6.2 L, Albumin 3.9, Globulin 2.3, Albumin/Globulin Ratio 1.7 10/22/21 04:45: Lactate 1.1 10/22/21 04:45: SARS-CoV-2 (PCR) Not detected, Influenza A Untype (PCR) Not detected, Influenza Type B (PCR) Not detected 10/22/21 04:45: Procalcitonin 0.056 10/22/21 04:45: Magnesium 1.6, Troponin I < 0.01, NT-Pro-B Natriuret Pep 716 H 10/22/21 05:02: Specimen Source Right brachial, O2 % 4l, ABG pH 7.36, ABG pCO2 50.9 H, ABG pO2 79.7 L, ABG HCO3 28.1 H, ABG Total CO2 29.7 H, ABG O2 Saturation 95, ABG Base Excess 2.7 H, Gonzalo Test Acceptable 10/22/21 06:42: Urine Color Yellow, Urine Appearance Clear, Urine pH 6.0, Ur Specific [place] 1.015, Urine Protein Negative, Urine Glucose (UA) Negative, Urine Ketones Negative, Urine Blood Negative, Urine Nitrate Negative, Urine Bilirubin Negative, Urine Urobilinogen 0.2, Ur Leukocyte Esterase Negative, Urine RBC Occasional, Urine WBC Occasional, Ur Squamous Epith Cells Occasional, Urine Bacteria None Result diagrams: 10/22/21 04:45 10/22/21 04:45 Orders (Tests/Meds): ORDERS Category Date Time Status Troponin I Q3H Lab 10/22/21 08:15 Ordered Troponin I Q3H Lab 10/22/21 11:15 Ordered Blood Culture Stat Micro 10/22/21 04:45 Received ECG Request by /Tank Stat Y 10/22/21 05:11 Ordered - Radiology Data #1 Image(s): Chest Image Reviewed: Yes I have reviewed radiologist's interpretation Preliminary Findings: Abnormal - ECG Da
[2021-10-22 07:16] LABS: RBC,Urine Occasional #/hpf (0-3); Squamous Epithelial Cell,Urine Occasional #/hpf (0-5); WBC,Urine Occasional #/hpf (0-3)
[2021-10-22 07:48] VITALS: BP 125/74; PULSE 78; RESP 24; TEMP 36.6; O2SAT 93
--- NOTE | 2021-10-22 07:49 | PC.NURSE ---
zarco d/edie 600cc urine return
--- NOTE | 2021-10-23 14:01 | ECG_ITS ---
APPROVED REPORT Exam: Resting ECG HR:89 bpm ECG Measurements Heart Rate 89 AXES QRSd 82 QRS 65 QT 384 T 231 QTc 467 Conclusion Accelerated Junctional rhythm Nonspecific ST and T wave abnormality Abnormal ECG Electronically signed by : Ephraim Lombardo MD 10/27/2021 09:50:47
== END 2021-10-22 07:50 | disposition home or self-care (01) ==
PROVIDERS: Emergency Provider Emergency Medicine; PCP Internal Medicine Adolescent Medicine
DX: J44.1 Chronic obstructive pulmonary disease with (acute) exacerbation (principal); K21.9 Gastro-esophageal reflux disease without esophagitis; E78.5 Hyperlipidemia, unspecified; I10 Essential (primary) hypertension; M79.7 Fibromyalgia; F17.210 Nicotine dependence, cigarettes, uncomplicated; Z79.899 Other long term (current) drug therapy
CPT/HCPCS: 71045; 80053; 81001; 82803; 83605; 83735; 83880; 84145; 84484; 85007; 85025; 85651; 86140; 87040; 87077; 87186; 93005; 96365; 99284; C9803; U0003; U0005

== ENCOUNTER 2021-10-23 14:03 | Inpatient (IN) | payer MEDICARE, OTHER, SELFPAY ==
--- NOTE | 2021-10-23 14:02 | ECG_ITS ---
APPROVED REPORT Exam: Resting ECG HR:89 bpm ECG Measurements Heart Rate 89 AXES MS 148 P 58 QRSd 80 QRS 61 QT 314 T 201 QTc 382 Conclusion Normal sinus rhythm Nonspecific ST and T wave abnormality Abnormal ECG Electronically signed by : Ephraim Lombardo MD 10/24/2021 13:24:14
[2021-10-23 14:03] VITALS: BP 160/105; PULSE 94; RESP 34; TEMP 37.7; O2SAT 92; BMI 26.6
--- NOTE | 2021-10-23 14:05 | XR_ITS ---
PROCEDURE: XR CHEST PORTABLE CLINICAL HISTORY: soa COMPARISON: CR XR CHEST PORTABLE from 10/22/2021 FINDINGS: Normal heart size. Prominent right azygos calcified lymph node. Opacification is now noted in the right midlung and right lower lobe consistent with right-sided pneumonia. Atelectatic changes are present in the left midlung with possible developing infiltrate in the left lower lobe. There is a background of COPD. No acute bony abnormalities. IMPRESSION: Interval development of right-sided pneumonia and possible pneumonia in the left lower lobe Dictated by: Gonzalo Elizabeth MD 10/23/2021 14:23 Gonzalo Elizabeth MD in [facility] 10/23/2021 14:23
--- NOTE | 2021-10-23 14:06 | HMH.EDGENADL ---
ED Disposition Clinical Impression: NSTEMI (non-ST elevated myocardial infarction) CAP (community acquired pneumonia) Qualifiers: Laterality: right Lung location: lower lobe of lung Qualified Code(s): J18.9 - Pneumonia, unspecified organism Disposition: Admitted as Observation Condition on Discharge: Good - Critical Care Critical Care Time: No Attestation: On , the high probability of a clinically significant, sudden or life threatening deterioration of the following system(s) required my full and direct attention, intervention and personal management. The time I documented below is in addition to time spent performing reported procedures but includes the following listed in this critical care notation. Medical Decision Making - Medical Records Medical records reviewed: Yes: I reviewed the patient's medical records. - Noble Inquiry Pt receiving controlled substance: No Vital Signs: 10/23/21 14:03 Temperature 99.8 F H Temperature Source Oral Pulse Rate [Right Radial] 94 H Respiratory Rate 34 H Blood Pressure [Right Arm] 160/105 H Blood Pressure Mean [Right Arm] 123 Blood Pressure Source [Right Arm] Automatic Cuff Blood Pressure Position [Right Arm] Sitting 02 Sat by Pulse Oximetry 92 L Oxygen Delivery Method Nasal Cannula Oxygen Flow Rate (LPM) 2 - Lab Data Lab Results 10/23/21 14:04: WBC 33.8 H* D, RBC 4.16 L, Hgb 12.3, Hct 39.4, MCV 94.8, MCH 29.6, MCHC 31.2 L, RDW 14.6, Plt Count 328 D, MPV 9.0, Neut % (Auto) 93.9 H, Lymph % (Auto) 2.4 L, [place] % (Auto) 3.4, Eos % (Auto) 0.1, Baso % (Auto) 0.2, Neut # (Auto) 31.7 H, Lymph # (Auto) 0.8, [place] # (Auto) 1.1 H, Eos # (Auto) 0.0, Baso # (Auto) 0.1 10/23/21 14:04: Sodium 136, Potassium 4.2, Chloride 99, Carbon Dioxide 33 H, Anion Gap 8.2, BUN 15 D, Creatinine 0.90, Estimated Creat Clear 68, Estimated GFR 62, Est GFR ( Amer) 75, Glucose 117 H, Calcium 9.6, Total Bilirubin 0.5, AST 32, ALT 25, Alkaline Phosphatase 99, Troponin I 0.12 H, Total Protein 6.9, Albumin 4.3 D, Globulin 2.6, Albumin/Globulin Ratio 1.7 10/23/21 14:04: Lactate 1.1 10/23/21 14:10: SARS-CoV-2 (PCR) Not detected, Influenza A Untype (PCR) Not detected, Influenza Type B (PCR) Not detected Result diagrams: 10/23/21 14:04 10/23/21 14:04 Orders (Tests/Meds): ED MEDICATIONS Generic Name Dose Route Start Last Admin Trade Name Freq PRN Reason Stop Dose Admin Ceftriaxone Sodium 2 gm/ 100 mls @ 200 mls/hr 10/23/21 14:45 10/23/21 15:05 Sodium Chloride IV 11/06/21 14:44 200 mls/hr Q24H TANA Administration Levofloxacin/Dextrose 500 mg in 100 mls @ 100 mls/hr 10/23/21 15:15 Levaquin 500mg/100ml Premix IV 11/06/21 15:14 Q24H TANA Discontinued Medications Generic Name Dose Route Start Last Admin Trade Name Freq PRN Reason Stop Dose Admin Albuterol/Ipratropium 6 ml 10/23/21 14:05 10/23/21 14:34 Ipratropium/Albuterol 3 Ml Neb IH 10/23/21 14:06 6 ml ONCE ONE Administration Aspirin 325 mg 10/23/21 14:04 10/23/21 14:36 Aspirin 325mg Tablet PO 10/23/21 14:05 325 mg ONCE ONE Administration Enoxaparin Sodium 80 mg 10/23/21 15:10 Enoxaparin 100mg/Ml Syringe SQ 10/23/21 15:11 ONCE ONE Methylprednisolone Sodium Succinate 125 mg 10/23/21 14:03 10/23/21 14:32 Methylprednisolone Sod Succ 125mg Vial IV 10/23/21 14:04 125 mg ONCE ONE Administration Nitroglycerin 0.4 mg 10/23/21 14:03 10/23/21 14:32 Nitroglycerin 0.4mg Sl Tablet SL 10/23/21 14:04 0.4 mg ONCE ONE Administration Nitroglycerin 1 gm 10/23/21 14:03 10/23/21 14:36 Nitroglycerin 1 Gm Ointment TD 10/23/21 14:04 1 gm ONCE ONE Administration Ondansetron HCl 8 mg 10/23/21 14:04 10/23/21 14:33 Ondansetron 4mg/2ml Vial IV 10/23/21 14:05 8 mg ONCE ONE Administration ORDERS Category Date Time Status Complete Blood Count Auto Diff Stat Lab 10/23/21 14:04 Results Troponin I Q3H Lab 10/23/21 17:15 Ordered Troponin I Q3H Lab 10/23
[2021-10-23 14:24] LABS: Basophils # 0.1 K/mm3 (0-0.2); Basophils % 0.2 % (0.1-2.0); Eosinophils % 0.1 % (0.1-12.0); Hematocrit 39.4 % (37.0-47.0); Hemoglobin 12.3 g/dL (12.2-16.2); Lymphocytes # 0.8 K/mm3 (0.7-4.5); Lymphocytes % 2.4 % (10-50); Mean Corpuscular HGB Conc 31.2 g/dL (31.8-35.4); Mean Corpuscular Hemoglobin 29.6 pg (27.0-31.2); Mean Corpuscular Volume 94.8 fl (81-99); Monocytes # 1.1 K/mm3 (0.1-1.0); Monocytes % 3.4 % (1.7-9.3); Neutrophils # 31.7 K/mm3 (1.8-7.8); Neutrophils % 93.9 % (37.0-80.0); Platelet Count 328 K/mm3 (142-424); Red Blood Count 4.16 M/mm3 (4.20-5.40); Red Cell Distribution Width 14.6 % (11.5-17.5); White Blood Count 33.8 K/mm3 (4.8-10.8)
[2021-10-23 14:34] LABS: Alanine Aminotransferase 25 U/L (12-78); Albumin Level 4.3 g/dl (3.5-5.0); Albumin/Globulin Ratio 1.7 (1.1-1.8); Alkaline Phosphatase 99 U/L (38-126); Anion Gap 8.2 mEq/L (5-15); Aspartate Amino Transferase 32 U/L (14-36); Bilirubin,Total 0.5 mg/dl (0.2-1.3); Blood Urea Nitrogen 15 mg/dl (7-17); Calcium 9.6 mg/dl (8.4-10.2); Carbon Dioxide 33 mmol/L (22.0-30.0); Chloride 99 mmol/L (98-107); Creatinine Clearance Estimated 68 mL/min (50-200); Estimated Glomerular Filt Rate 62 ml/min (>60); GFR (African American) 75 ML/MIN (>60); Globulin 2.6 g/dL (1.3-3.2); Glucose 117 mg/dl (74-100); Potassium 4.2 mmoL/L (3.5-5.1); Sodium 136 mmol/L (136-145); Total Protein,Serum 6.9 g/dl (6.3-8.2)
[2021-10-23 14:36] LABS: Coronavirus 19, PCR Not Detected (NotDetected); Influenza A, PCR Not Detected (NotDetected); Influenza B, PCR Not Detected (NotDetected)
[2021-10-23 14:46] LABS: Troponin I 0.12 ng/ml (0.00-0.034)
[2021-10-23 14:49] LABS: Lactic Acid 1.1 mmol/L (0.7-2.1)
[2021-10-23 15:05] LABS: MANUAL DIFFERENTIAL MANUAL DIFFERENTIAL (MANUAL DIFF)
--- NOTE | 2021-10-23 16:26 | PC.NURSE ---
Attempted to call report on pt. Spoke with Martina. She stated that she would have [facility] return my call.
--- NOTE | 2021-10-23 16:30 | PC.NURSE ---
Gave report to Elinor Short.
[2021-10-23 16:31] VITALS: BP 158/73; PULSE 73; RESP 22; TEMP 37.4; O2SAT 94
[2021-10-23 16:56] LABS: Lymphocytes % 3 % (10-50); Monocytes % 2 % (2-9); Neutrophils % 95 % (42-76); Total Cells Counted 100
[2021-10-23 16:57] LABS: Platelet Estimate Normal
[2021-10-23 17:00] VITALS: BP 156/75; PULSE 95; RESP 18; TEMP 37; O2SAT 95
--- NOTE | 2021-10-23 17:24 | PC.NURSE ---
pt arrived to the floor at this time
[2021-10-23 17:47] VITALS: BMI 29.7
[2021-10-23 17:47] LABS: Troponin I 0.13 ng/ml (0.00-0.034)
[2021-10-23 20:00] VITALS: BP 157/59; PULSE 68; PULSE 70; RESP 19; RESP 22; TEMP 36.5; O2SAT 97
[2021-10-24] VITALS (11 sets, daily range): BP systolic 126–152; BP diastolic 66–100; PULSE 52–66; RESP 16–22; TEMP 36.3–36.7; O2SAT 96–100; BMI 29.5
--- NOTE | 2021-10-24 07:22 | HMH.PHAVTE ---
[facility] Pharmacy VTE Monitoring - Patient Demographics Admission date: 10/23/21 Report Date: 10/24/21 Time: 07:22 Allergies/Adverse Reactions: Patient Allergies No Known Allergies Allergy (Verified 10/23/21 17:30) Height: 1.65 m Weight: 80.541 kg Patient Problems: Current Active Problems CAP (community acquired pneumonia) (Acute) NSTEMI (non-ST elevated myocardial infarction) (Acute) - VTE Risk Labs: VTE Related Lab Results Hgb 12.3 g/dL (12.2-16.2) 10/23/21 14:04 Hct 39.4 % (37.0-47.0) 10/23/21 14:04 Plt Count 328 K/mm3 (142-424) D 10/23/21 14:04 BUN 15 mg/dl (7-17) D 10/23/21 14:04 Creatinine 0.90 mg/dl (0.52-1.04) 10/23/21 14:04 Estimated Creat Clear 68 mL/min (50-200) 10/23/21 14:04 - Prophylaxis VTE Prophylaxis Ordered?: Yes Types of VTE Prophylaxis: TEDS Knee High Location of Applied Device: Bilateral Lower Extremeties
--- NOTE | 2021-10-24 07:58 | HMH.HP ---
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 She came to the emergency department 1 day before admission. Was found to have COPD exacerbation was given steroids and was discharged home. She did not feel much better and came back to the emergency department on the day of admission, 10/23/2021. Found to have increased work of breathing, slightly increased oxygen requirement, dyspnea, tachycardia and minimally elevated troponin levels. Admitted to hospital for COPD exacerbation, IV antibiotics, steroids and enhanced pulmonary toilet. ER physician was concerned about the possibility of a non-STEMI given her elevated troponin levels and ordered Lovenox as well. [facility] History I have reviewed the patient's past medical history: Yes Medical History: Reports:: Carotid Stenosis, Chronic Obstructive Pulmonary Disease (COPD), Coronary Artery Disease, Deep Vein Thrombosis, Gastroesophageal Reflux Disease(GERD), Hyperlipidemia, Hypertension, Lung Disease Denies:: Cancer, Diabetes Mellitus Type 1, Diabetes Mellitus Type 2, Internal Pacemaker, MRSA, Seizures *Have you ever received a pneumonia vaccine?: Yes *Have you received a flu vaccine this season?: Yes Other Medical History: Reports: Anemia, Arthritis, Cataracts, Fibromyalgia Other Surgeries: Yes: Angiogram, Cardiac Catheterization, Cholecystectomy, Colonoscopy, Coronary Stent, EGD, Hysterectomy-Total, Sinus Surgery. No: Pacemaker Amputation: No Fractures: No - *Social History Last grade of school completed: High school graduate Smoking Status: Current every day smoker Tobacco Type: cigarettes # Packs/Day (cigarettes): 1 #Yrs smoked (if former smoker): 53 Alcohol Intake: never Alcohol Intake Frequency:: a few times a month Substance Use Type: denies use *Occupational Status:: retired Housing: house Household Members: spouse *Travel in the last 8 weeks: None Family Hx:: Cancer, Heart Attack, Hyperlipidemia, Hypertension Review of Systems - Review of Systems Review of systems:: pertinent systems reviewed and negative unless documented below Patient reports short of air as noted in sputum production, as well as profound weakness, insomnia and generalized fatigue and malaise. Reports mild nausea but denies anginal chest pain or palpitations. Meds Home Medications Medication Instructions Recorded Confirmed Type Aspirin [Aspir 81] 81 mg PO HS 01/30/19 10/24/21 History Atorvastatin Calcium [Lipitor 10mg 10 mg PO HS 03/13/19 10/24/21 History Tab] Albuterol Sulfate [Proventil-HFA 2 puffs IH QIDP PRN 08/03/19 10/24/21 History 90mcg/puff Inh] clonazepam 0.5 mg tablet 0.5 mg PO BID PRN 09/07/19 10/24/21 History fluoxetine 20 mg capsule 20 mg PO HS cap 05/15/20 10/24/21 History losartan 50 mg tablet 50 mg PO HS 06/07/20 10/24/21 History clopidogrel 75 mg tablet 75 mg PO HS #30 tab 12/04/20 10/24/21 Rx Azithromycin [Zithromax 250mg tab] 250 mg PO MOWEFR 02/05/21 10/24/21 History metoprolol succinate 25 mg 12.5 mg PO HS tab 02/05/21 10/24/21 History tablet,extended release 24 hr omeprazole 40 mg capsule,delayed 40 mg PO DAILY cap 02/19/21 10/24/21 History release Fluticasone/Umeclidin/Vilanter 1 each IH DAILY 06/12/21 10/24/21 History [Trelegy Ellipta 100-62.5-25] Promethazine/Dextromethorphan 118 ml PO DAILY PRN 10/22/21 10/24/21 History [Promethazine-Dm Solution] predniSONE [Prednisone 20mg 20 mg PO BID 10/24/21 10/24/21 History Tab] Allergies Allergy/AdvReac Type Severity Reaction Status Date / Time No Known Allergies Allergy Verified 10/23/21 17:30 Exam Vital signs and Labs for Last 24 Hours: Temp Pulse Resp BP Pulse Ox 98.1 F 52 L
--- NOTE | 2021-10-24 08:51 | P.PN_ITS ---
Internal Medicine - PN: Subj *Date: 10/24/21 *Time: 08:51 Interval history: Patient feels a little better than yesterday. Breathing is somewhat improved. Having a lot of bleeding from her Lovenox injection site. Exam Vital signs and Labs for Last 24 Hours: Temp Pulse Resp BP Pulse Ox 97.4 F L 60 18 150/77 H 100 10/24/21 08:00 10/24/21 08:26 10/24/21 08:26 10/24/21 08:00 10/24/21 08:00 Laboratory Results - last 24 hr 10/23/21 14:04: WBC 33.8 H* D, RBC 4.16 L, Hgb 12.3, Hct 39.4, MCV 94.8, MCH 29.6, MCHC 31.2 L, RDW 14.6, Plt Count 328 D, MPV 9.0, Neut % (Auto) 93.9 H, Lymph % (Auto) 2.4 L, [place] % (Auto) 3.4, Eos % (Auto) 0.1, Baso % (Auto) 0.2, Neut # (Auto) 31.7 H, Lymph # (Auto) 0.8, [place] # (Auto) 1.1 H, Eos # (Auto) 0.0, Baso # (Auto) 0.1, Total Counted 100, Neutrophils % (Manual) 95 H, Lymphocytes % (Manual) 3 L, Monocytes % (Manual) 2, Platelet Estimate Normal 10/23/21 14:04: Sodium 136, Potassium 4.2, Chloride 99, Carbon Dioxide 33 H, Anion Gap 8.2, BUN 15 D, Creatinine 0.90, Estimated Creat Clear 68, Estimated GFR 62, Est GFR ( Amer) 75, Glucose 117 H, Calcium 9.6, Total Bilirubin 0.5, AST 32, ALT 25, Alkaline Phosphatase 99, Troponin I 0.12 H, Total Protein 6.9, Albumin 4.3 D, Globulin 2.6, Albumin/Globulin Ratio 1.7 10/23/21 14:04: Lactate 1.1 10/23/21 14:10: SARS-CoV-2 (PCR) Not detected, Influenza A Untype (PCR) Not detected, Influenza Type B (PCR) Not detected 10/23/21 17:13: Troponin I 0.13 H 10/23/21 20:50: Troponin I 0.10 H I & O for Last 24 hours: Intake & Output 10/21/21 10/22/21 10/23/21 10/24/21 11:59 11:59 11:59 11:59 Intake Total 120 / 120 Balance 120 / 120 Weight 177 lb 9 oz Narrative: Mild distress but better. Lungs have rhonchi, diminished air entry at baseline. Heart rate regular. No murmurs or gallops. Abdomen soft, Lovenox injection site with some oozing. Otherwise no edema or clubbing. Assessment and Plan (1) CAP (community acquired pneumonia) Status: Acute Qualifiers: Laterality: right Lung location: lower lobe of lung Qualified Code(s): J18.9 - Pneumonia, unspecified organism Category: Medical Code(s): J18.9 - Pneumonia, unspecified organism (2) Acute exacerbation of chronic obstructive airways disease Status: Acute Category: Medical Code(s): J44.1 - Chronic obstructive pulmonary disease with (acute) exacerbation - Assessment and plan all Dx Assessment and Plan for all problems:: I have stopped Lovenox. No evidence of non-STEMI. Continue aggressive pulmonary toilet, Levaquin therapy, blood cultures from her ER visit 2 days ago are positive, await identification of possible organism and sputum cultures from this admission.
--- NOTE | 2021-10-24 16:07 | HMH.PHAINT ---
MEDICATION RECONCILIATION COMPLETED ON PATIENT USING EXTERNAL FILL HISTORY FROM PHARMACY AND LIST FROM PCP OFFICE. -BASILIO BELLD
[2021-10-25 04:00] VITALS: BP 150/92; PULSE 60; RESP 18; TEMP 36.4; O2SAT 95
--- NOTE | 2021-10-25 04:34 | PC.NURSE ---
Pt. c/o nausea at beginning of shift; administered phenergan; effectiveness reported. Pt. has not c/o pain, vomiting, diarrhea or soa this shift.
[2021-10-25 05:00] VITALS: BMI 29.5
[2021-10-25 06:11] LABS: Alanine Aminotransferase 18 U/L (12-78); Anion Gap 4.2 mEq/L (5-15); Aspartate Amino Transferase 24 U/L (14-36); Bilirubin,Total 0.2 mg/dl (0.2-1.3); Blood Urea Nitrogen 26 mg/dl (7-17); Calcium 8.5 mg/dl (8.4-10.2); Carbon Dioxide 34 mmol/L (22.0-30.0); Chloride 103 mmol/L (98-107); Creatinine Clearance Estimated 67 mL/min (50-200); Estimated Glomerular Filt Rate 71 ml/min (>60); GFR (African American) 86 ML/MIN (>60); Glucose 120 mg/dl (74-100); Potassium 4.2 mmoL/L (3.5-5.1); Sodium 137 mmol/L (136-145); Total Protein,Serum 5.5 g/dl (6.3-8.2)
[2021-10-25 06:12] LABS: Albumin/Globulin Ratio 1.2 (1.1-1.8); Alkaline Phosphatase 61 U/L (38-126); Eosinophils % 0.1 % (0.1-12.0); Globulin 2.5 g/dL (1.3-3.2); Hematocrit 31.9 % (37.0-47.0); Hemoglobin 9.9 g/dL (12.2-16.2); Lymphocytes # 0.8 K/mm3 (0.7-4.5); Lymphocytes % 5.6 % (10-50); Mean Corpuscular HGB Conc 31.1 g/dL (31.8-35.4); Mean Corpuscular Hemoglobin 29.5 pg (27.0-31.2); Mean Corpuscular Volume 94.7 fl (81-99); Mean Platelet Volume 8.9 fl (7.4-10.4); Monocytes # 0.5 K/mm3 (0.1-1.0); Monocytes % 3.6 % (1.7-9.3); Neutrophils # 12.6 K/mm3 (1.8-7.8); Neutrophils % 90.7 % (37.0-80.0); Platelet Count 204 K/mm3 (142-424); Red Blood Count 3.37 M/mm3 (4.20-5.40); Red Cell Distribution Width 14.4 % (11.5-17.5); White Blood Count 13.9 K/mm3 (4.8-10.8)
[2021-10-25 06:31] LABS: MANUAL DIFFERENTIAL MANUAL DIFFERENTIAL (MANUAL DIFF)
[2021-10-25 08:00] VITALS: BP 184/75; PULSE 58; RESP 18; TEMP 36.4; O2SAT 100; O2SAT 95
[2021-10-25 08:40] LABS: Lymphocytes % 6 % (10-50); Monocytes % 2 % (2-9); Neutrophils % 91 % (42-76); Total Cells Counted 100
[2021-10-25 08:41] LABS: Platelet Estimate Normal; RBC Morphology Normal
--- NOTE | 2021-10-25 08:56 | HMH.DCSUM ---
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 She came to the emergency department 1 day before admission. Was found to have COPD exacerbation was given steroids and was discharged home. She did not feel much better and came back to the emergency department on the day of admission, 10/23/2021. Found to have increased work of breathing, slightly increased oxygen requirement, dyspnea, tachycardia and minimally elevated troponin levels. Admitted to hospital for COPD exacerbation, IV antibiotics, steroids and enhanced pulmonary toilet. ER physician was concerned about the possibility of a non-STEMI given her elevated troponin levels and ordered Lovenox as well. Hospital Course Hospital Course: Patient was admitted, placed on IV steroids, IV antibiotics. Of note her blood cultures from ER visit 2 days ago showed gram-positive cocci, final diagnosis pending. Patient felt much better over the next 24 hours and her white count dropped from 33-13,000. This morning she was feeling good, slept well, wished to be discharged home. Exam had improved, plan will be to discharge home with short-term follow-up. See reconciliation form as noted for medication issues. Objective Vital signs: Temp Pulse Resp BP Pulse Ox 97.6 F 58 L 18 184/75 H 100 10/25/21 08:00 10/25/21 08:00 10/25/21 04:00 10/25/21 08:00 10/25/21 08:00 no acute distress - *Routine HEENT Exam Head: Present: normocephalic Eye: Present: EOMI, PERRL ENT: Present: mucous membranes moist - *Routine Neck Exam Present: supple - *Routine Respiratory Exam Present: prolonged expiratory phase, rhonchi - *Routine Cardiovascular Exam Present: RRR - *Routine Abdominal Exam Present: soft, normoactive bowel sounds. Absent: tenderness - *Routine Extremities Exam Absent: cyanosis, clubbing, edema - *Routine Skin Exam Present: warm. Absent: rash - Detailed Eye Exam Eyelids: Bilateral normal inspection Results Labs on day of discharge: Labs from last 24 hours 10/25/21 10/25/21 05:19 05:19 WBC 13.9 H D RBC 3.37 L Hgb 9.9 L Hct 31.9 L MCV 94.7 MCH 29.5 MCHC 31.1 L RDW 14.4 Plt Count 204 D MPV 8.9 Neut % (Auto) 90.7 H Lymph % (Auto) 5.6 L [place] % (Auto) 3.6 Eos % (Auto) 0.1 Baso % (Auto) 0.0 L Neut # (Auto) 12.6 H Lymph # (Auto) 0.8 [place] # (Auto) 0.5 Eos # (Auto) 0.0 Baso # (Auto) 0.0 Total Counted 100 Neutrophils % (Manual) 91 H Band Neutrophils % 1.0 Lymphocytes % (Manual) 6 L Monocytes % (Manual) 2 Platelet Estimate Normal RBC Morphology Normal Sodium 137 Potassium 4.2 Chloride 103 Carbon Dioxide 34 H Anion Gap 4.2 L BUN 26 H D Creatinine 0.80 Estimated Creat Clear 67 Estimated GFR 71 Est GFR ( Amer) 86 Glucose 120 H Calcium 8.5 Total Bilirubin 0.2 AST 24 ALT 18 D Alkaline Phosphatase 61 Total Protein 5.5 L Albumin 3.0 L Globulin 2.5 Albumin/Globulin Ratio 1.2 DS: Diagnosis - Discharge Diagnosis (1) CAP (community acquired pneumonia) Status: Acute (2) Acute exacerbation of chronic obstructive airways disease Status: Acute (3) Bacteremia Status: Acute Discharge Plan - Patient Discharge Instructions ACTIVITY: Continue current activity DIET: continue same diet Patient Instructions: Pneumonia-Adult, DI for Pneumonia -- Adult - Follow up Plan Follow up with: Ephraim Lombardo MD [Primary Care Provider] - 10/30/21 Disposition: Home, Self-Care Condition at discharge:: Improved Home Medications: Home Medications Medication Instructions Recorded Confirmed Type Aspirin [Aspir 81] 81 mg PO HS
== END 2021-10-25 10:40 | disposition home or self-care (01) | DRG 190 ==
LOC: ER 15:13 → 2ND 10-24 07:34
PROVIDERS: Admitting Provider Internal Medicine Adolescent Medicine; Emergency Provider Emergency Medicine; PCP Internal Medicine Adolescent Medicine; Visit Provider Internal Medicine Adolescent Medicine
DX: J43.9 Emphysema, unspecified (principal); J18.9 Pneumonia, unspecified organism; R78.81 Bacteremia; Z20.822 Contact with and (suspected) exposure to COVID-19; Z99.81 Dependence on supplemental oxygen; I25.10 Atherosclerotic heart disease of native coronary artery without angina pectoris; F17.210 Nicotine dependence, cigarettes, uncomplicated; E78.5 Hyperlipidemia, unspecified; I10 Essential (primary) hypertension; M79.7 Fibromyalgia; M19.90 Unspecified osteoarthritis, unspecified site; R77.8 Other specified abnormalities of plasma proteins
CPT/HCPCS: 36415; 71045; 80053; 81001; 82803; 83605; 83735; 83880; 84145; 84484; 85007; 85025; 85651; 86140; 87040; 87070; 87077; 87186; 87205; 93005; 96365; 96375; 99284; C9803; J1956; J2405; U0003; U0005

== ENCOUNTER → 2021-11-13 11:05 | Outpatient (CLI) | payer MEDICARE, OTHER, SELFPAY ==
[2021-11-13 14:11] LABS: Alanine Aminotransferase 16 U/L (12-78); Albumin Level 3.7 g/dl (3.5-5.0); Alkaline Phosphatase 107 U/L (38-126); Aspartate Amino Transferase 22 U/L (14-36); Bilirubin,Direct 0.1 mg/dl (0.0-0.4); Bilirubin,Indirect 0.3 mg/dL (0.0-0.9); Bilirubin,Total 0.4 mg/dl (0.2-1.3); Bilirubin,Unconjugated 0.4 mg/dL (0.0-1.1); Chol/HDL Ratio 3.1 (1-3.5); Cholesterol 173 mg/dl (140-200); HDL Cholesterol 55 mg/dl (40-60); Total Protein,Serum 5.8 g/dl (6.3-8.2); Triglycerides 163 mg/dl (30-150); VLDL Cholesterol 33 mg/dL (0-40)
[2021-11-13 14:22] LABS: Direct LDL Cholesterol 83.93 mg/dL (100-129)
== END ==
PROVIDERS: Visit Provider Nurse Practitioner Family
DX: E78.5 Hyperlipidemia, unspecified (principal); N18.9 Chronic kidney disease, unspecified
CPT/HCPCS: 36415; 80061; 80076

== ENCOUNTER 2021-12-13 05:39 | Inpatient (IN) | payer MEDICARE, OTHER, SELFPAY ==
[2021-12-13] VITALS (24 sets, daily range): BP systolic 95–141; BP diastolic 43–104; PULSE 64–105; RESP 18–32; TEMP 36.6–37.7; O2SAT 90–99; BMI 26.6; BMI 27.4
--- NOTE | 2021-12-13 | IR_ITS ---
APPROVED REPORT Patient Location: Inpatient [place]: JANNA Mcelroy RT (R) PROCEDURES Left heart catheterization Left ventriculogram Selective coronary angiogram Drug-eluting stent deployment to the ostial right coronary INDICATION Elevated troponin/acute coronary syndrome, Coronary artery disease, Informed consent was obtained prior to the procedure. COMPLICATIONS NONE Estimated Blood Loss: LESS THAN 10 ML TECHNIQUE One percent lidocaine used to anesthetize the right anterior aspect of the wrist. The right radial artery was accessed via the Seldinger technique. A 6 [place] sheath was placed in the right radial artery. 2.5 mg of verapamil, 800 mcg of nitroglycerin, 1mg Lidocaine and 5000 U Heparin were given through the arterial sheath. The [place] catheter was also used to perform left heart catheterization, left ventriculogram and selective coronary angiogram. At the end the diagnostic angiogram guide catheter was placed in the right coronary cusp and a Choice PT extra-support wire was placed distally in the right coronary 3.5 x 8 mm resolute Ty stent was deployed at 24 yolanda reducing the severe ostial stenosis to 0%. The previous 50 mm gradient created by the catheter insertion was reduced to 0%. BENJA-3 flow was present before and after the procedure. The procedure the apparatus was removed the sheath was removed and hemostasis was achieved using TR banding patient was transferred to the postop already in stable condition ANGIOGRAPHIC RESULTS The left main artery Has a stent in the ostial segment which extends throughout its entire course into the proximal LAD. The stent is widely patent free of in-stent restenosis with excellent proximal distal transitioning The left anterior descending artery Has a stent originating off the left main artery into the proximal segment. The stent is widely patent free of in-stent restenosis with excellent distal transitioning. The mid vessel has additional 20% stenoses The circumflex artery Small nondominant normal The right coronary artery Large dominant with an ostial stenosis of at least 70% creating a 15 mm gradient upon catheter insertion the remaining vessel has mild 10% diffuse atheromatous plaque The GAY ventriculogram reveals Dilated ventricle severely reduced ejection fraction with anterior apical hypokinesis estimate ejection fraction is 30 to 35% The left ventricular end-diastolic pressure 35 to 40 mmHg IMPRESSION Coronary disease as described above Large anterior wall regional wall motion abnormality Severely elevated LVEDP Severe ostial dominant right coronary disease reduced with 1 stent to 0% PLAN 1. Dual antiplatelet therapy 2. Standard therapy for systolic heart failure which should include Entresto and beta-blockers along with diuretics due to severely elevated LVEDP 3. Cardiac rehabilitation 4. Avoidance of tobacco products 5. Risk factor modification Electronically signed by : Gordo Salguero MD 12/13/2021 11:34:51
--- NOTE | 2021-12-13 05:40 | ECG_ITS ---
APPROVED REPORT Exam: Resting ECG HR:101 bpm ECG Measurements Heart Rate 101 AXES TN 156 P 85 QRSd 86 QRS 72 QT 337 T 68 QTc 395 Conclusion SINUS TACHYCARDIA WITH OCCASIONAL ECTOPIC PREMATURE COMPLEXES INDETERMINATE AXIS Late R wave progression ABNORMAL ECG UNCONFIRMED REPORT Electronically signed by : Ephraim Lombardo MD 12/13/2021 20:22:19
--- NOTE | 2021-12-13 05:46 | XR_ITS ---
PROCEDURE INFORMATION: Exam: XR Chest Exam date and time: 12/13/2021 5:46 AM Age: 71 years old Clinical indication: Shortness of breath; Additional info: Shortness of air TECHNIQUE: Imaging protocol: XR of the chest. Views: 1 view. COMPARISON: CR XR CHEST PORTABLE 10/23/2021 2:10 PM FINDINGS: Lungs: Slight improved aeration of the lungs compared to previous. Mild nonspecific reticular interstitial type opacities in the mid lower lungs, favored to be linear atelectasis/fibrosis. Old granulomatous disease. Emphysematous changes. Coronary artery stent. Pleural spaces: Unremarkable. No pleural effusion. No pneumothorax. Heart/Mediastinum: No cardiomegaly. Bones/joints: Unremarkable. IMPRESSION: No evidence of an acute process. Otherwise, as above.
--- NOTE | 2021-12-13 05:52 | CT_ITS ---
PROCEDURE INFORMATION: Exam: CTA Chest With Contrast Exam date and time: 12/13/2021 5:52 AM Age: 71 years old Clinical indication: Shortness of breath; Additional info: Shortness of air; Tachycardia TECHNIQUE: Imaging protocol: Computed tomographic angiography of the chest with contrast. 3D rendering (Not supervised by radiologist): MIP and/or 3D reconstructed images were created by the technologist. Radiation optimization: All CT scans at this facility use at least one of these dose optimization techniques: automated exposure control; mA and/or kV adjustment per patient size (includes targeted exams where dose is matched to clinical indication); or iterative reconstruction. Contrast material: ISOVUE; Contrast volume: 70 ml; Contrast route: INTRAVENOUS (IV); COMPARISON: [facility] CT angio chest 03/13/2019 11:49 AM FINDINGS: Pulmonary arteries: No evidence of a pulmonary embolus. Aorta: Unremarkable. No aortic aneurysm. No aortic dissection. Lungs: Severe emphysematous changes bilaterally. Mild linear atelectasis/fibrosis. Calcified lung nodules in the RUL and calcified mediastinal/hilar lymph nodes, compatible with old granulomas disease. Pleural spaces: Unremarkable. No pneumothorax. No pleural effusion. Heart: Vascular calcifications with dense coronary artery calcifications. Question coronary artery stent(s). Lymph nodes: Unremarkable. No enlarged lymph nodes. Gallbladder and bile ducts: Cholecystectomy. Bones/joints: Unremarkable. No acute fracture. Soft tissues: Unremarkable. IMPRESSION: 1. No evidence of a pulmonary embolus or definite active pulmonary process. 2. Severe emphysematous changes. 3. Dense coronary artery calcifications. Question coronary artery stent(s). 4. Please see above report for details and additional findings.
[2021-12-13 05:55] LABS: Chloride 105 mmol/L (98-107); Sodium 136 mmol/L (136-145)
[2021-12-13 05:57] LABS: Basophils # 0.1 K/mm3 (0-0.2); Basophils % 0.7 % (0.1-2.0); Hematocrit 32.8 % (37.0-47.0)
[2021-12-13 05:58] LABS: Alanine Aminotransferase 23 U/L (12-78); Albumin Level 3.9 g/dl (3.5-5.0); Albumin/Globulin Ratio 1.5 (1.1-1.8); Alkaline Phosphatase 135 U/L (38-126); Aspartate Amino Transferase 32 U/L (14-36); Bilirubin,Total 0.5 mg/dl (0.2-1.3); Blood Urea Nitrogen 14 mg/dl (7-17); Carbon Dioxide 29 mmol/L (22.0-30.0); Coronavirus 19, PCR Not Detected (NotDetected); Creatinine Clearance Estimated 68 mL/min (50-200); Estimated Glomerular Filt Rate 55 ml/min (>60); GFR (African American) 67 ML/MIN (>60); Globulin 2.6 g/dL (1.3-3.2); Glucose 122 mg/dl (74-100); Influenza A, PCR Not Detected (NotDetected); Influenza B, PCR Not Detected (NotDetected); Total Protein,Serum 6.5 g/dl (6.3-8.2)
[2021-12-13 05:59] LABS: Calcium 8.5 mg/dl (8.4-10.2)
[2021-12-13 06:04] LABS: C-Reactive Protein 17.1 mg/L (0-4)
[2021-12-13 06:07] LABS: Lactic Acid 1.4 mmol/L (0.7-2.1)
[2021-12-13 06:07] LABS: ABG Base Excess 0.2 mmol/L (-2.4-2.3); ABG HCO3 24.9 mmhg (22.0-26.0); ABG Oxygen Saturation 95 % (90-100); ABG PCO2 40.2 mmhg (35.0-45.0); ABG PH 7.41 mmol/L (7.35-7.45); ABG PO2 77.3 mmhg (80-100); ABG TCO2 26.1 mmhg (23-27); Allen's Test Acceptable; Oxygen 2L %; Source Left Radial
[2021-12-13 06:12] LABS: MANUAL DIFFERENTIAL MANUAL DIFFERENTIAL (MANUAL DIFF); Troponin I 0.13 ng/ml (0.00-0.034)
[2021-12-13 06:16] LABS: NT Pro Brain Natriuretic Pep. 178 pg/mL (0-125); Procalcitonin 0.068 ng/mL (0.0-2.0)
--- NOTE | 2021-12-13 06:37 | ECG_ITS ---
APPROVED REPORT Exam: Resting ECG HR:90 bpm ECG Measurements Heart Rate 90 AXES FL 152 P 41 QRSd 87 QRS 70 QT 345 T 80 QTc 393 Conclusion SINUS RHYTHM WITH SINUS ARRHYTHMIA LOW QRS VOLTAGE IN PRECORDIAL LEADS [QRS DEFLECTION < 1.0 mV IN CHEST LEADS] MODERATE ST DEPRESSION [0.05+ mV ST DEPRESSION] ABNORMAL ECG UNCONFIRMED REPORT Electronically signed by : Ephraim Lombardo MD 12/13/2021 20:21:00
--- NOTE | 2021-12-13 06:47 | HMH.EDSOB ---
ED Disposition Clinical Impression: Acute exacerbation of chronic obstructive airways disease, NSTEMI (non-ST elevated myocardial infarction) Disposition: Admitted As Inpatient Condition on Discharge: Good - Critical Care Critical Care Time: No Attestation: On 12/13/21, the high probability of a clinically significant, sudden or life threatening deterioration of the following system(s) required my full and direct attention, intervention and personal management. The time I documented below is in addition to time spent performing reported procedures but includes the following listed in this critical care notation. Medical Decision Making - Medical Records Medical records reviewed: Yes: I reviewed the patient's medical records. - Noble Inquiry Pt receiving controlled substance: No Vital Signs: 12/13/21 05:20 12/13/21 05:49 12/13/21 06:00 Temperature 98.7 F Temperature Source Oral Pulse Rate 92 H 98 H Pulse Rate [Right Radial] 105 H Respiratory Rate 32 H 22 Blood Pressure 139/80 Blood Pressure [Right Arm] 141/66 H Blood Pressure Mean [Right Arm] 91 Blood Pressure Source Automatic Cuff Blood Pressure Source [Right Arm] Automatic Cuff Blood Pressure Position Sitting Blood Pressure Position [Right Arm] Sitting 02 Sat by Pulse Oximetry 92 L 96 Oxygen Delivery Method Nasal Cannula Nasal Cannula Oxygen Flow Rate (LPM) 2 2 12/13/21 06:45 Temperature 99.9 F H Temperature Source Rectal Pulse Rate Pulse Rate [Right Radial] Respiratory Rate Blood Pressure Blood Pressure [Right Arm] Blood Pressure Mean [Right Arm] Blood Pressure Source Blood Pressure Source [Right Arm] Blood Pressure Position Blood Pressure Position [Right Arm] 02 Sat by Pulse Oximetry Oxygen Delivery Method Oxygen Flow Rate (LPM) - Lab Data Lab results reviewed: Yes: I reviewed the patient's lab results. Lab Results 12/13/21 05:40: Sodium 136, Potassium 4.0, Chloride 105, Carbon Dioxide 29, Anion Gap 6.0, BUN 14, Creatinine 1.00, Estimated Creat Clear 68, Estimated GFR 55 L, Est GFR ( Amer) 67, Glucose 122 H, Calcium 8.5, Total Bilirubin 0.5, AST 32, ALT 23, Alkaline Phosphatase 135 H, Troponin I 0.13 H, C-Reactive Protein 17.1 H, Total Protein 6.5, Albumin 3.9, Globulin 2.6, Albumin/Globulin Ratio 1.5 12/13/21 05:40: WBC 9.4, RBC 3.72 L, Hgb 10.9 L, Hct 32.8 L, MCV 88.0, MCH 29.3, MCHC 33.3, RDW 14.0, Plt Count 242, MPV 8.0, Neut % (Auto) 72.4, Lymph % (Auto) 17.1, Jack % (Auto) 5.8, Eos % (Auto) 4.0, Baso % (Auto) 0.7, Neut # (Auto) 6.8, Lymph # (Auto) 1.6, Jack # (Auto) 0.5, Eos # (Auto) 0.4, Baso # (Auto) 0.1, Total Counted 100, Neutrophils % (Manual) 69, Lymphocytes % (Manual) 19, Monocytes % (Manual) 7, Eosinophils % (Manual) 5 H, Platelet Estimate Normal, RBC Morphology Normal, ESR 94 H 12/13/21 05:40: Procalcitonin 0.068 12/13/21 05:40: SARS-CoV-2 (PCR) Not detected, Influenza A Untype (PCR) Not detected, Influenza Type B (PCR) Not detected 12/13/21 05:40: NT-Pro-B Natriuret Pep 178 H 12/13/21 05:54: Specimen Source Left radial, O2 % 2l, ABG pH 7.41, ABG pCO2 40.2, ABG pO2 77.3 L, ABG HCO3 24.9, ABG Total CO2 26.1, ABG O2 Saturation 95, ABG Base Excess 0.2, Gonzalo Test Acceptable 12/13/21 05:55: Lactate 1.4 12/13/21 07:38: Urine Color Yellow, Urine Appearance Clear, Urine pH 5.0, Ur Specific [place] 1.020, Urine Protein Negative, Urine Glucose (UA) Negative, Urine Ketones Negative, Urine Blood Negative, Urine Nitrate Negative, Urine Bilirubin Negative, Urine Urobilinogen 0.2, Ur Leukocyte Esterase Negative, Urine WBC Occasional, Ur Squamous Epith Cells 3-5, Calcium Oxalate Crystal 1+ Result diagrams: 12/13/21 05:40 12/13/21 05:40 Orders (Tests/Meds): ED MEDICATIONS Discontinued Medications Generic Name Dose Route Start Last Admin Trade Name Freq PRN Reason Stop Dose Admin Albuterol/Ipratropium 3 ml 12/13/21 05:45 12/13/21 05:49 Ipratropium/Albuterol 3 Ml Neb IH 12/13/21 05:46 3 ml
[2021-12-13 06:48] LABS: Erythrocyte Sedimentation Rate 94 mm/hr (0-30)
--- NOTE | 2021-12-13 06:56 | CA_ITS ---
APPROVED REPORT EXAM: Comprehensive 2D, Doppler, and color-flow Echocardiogram [employer]: LITA Guerrero, RVS Ht: 5 ft 9 in Wt: 180lbs BSA: 1.98 BP: 140/80 mmHg Indications: CAD-6 coronary stents, SOA, COPD, Ex-smokerx 1 month Echo Enhancing Agent Comments: Extremely limited windows due to lung impedence and Patient respirations 2D Dimensions IVSd 0.99 cm LVEF (Visual) 56.00 % PWd 0.83 cm LA Volume 59.80 mL LVDd 5.32 cm LA Volume Index 30.20 mL/m2 (M/F) 16-34 LVDs 3.75 cm Aortic Root 2.61 cm Left Atrium 2.86 cm LVOT 1.32 cm (M/F) 1.5-2.5 M-Mode Dimensions TAPSE 2.39 (<1.7) LV Diastology E Decel Time 163.00 (160-240 msec) E/A Ratio 1.06 MED E' 7.40 (< 7 cm/sec) MED A' 12.50 cm/s E'/MED E' Ratio 8.86 (>14) LAT E' 14.20 (<10 cm/sec) LAT A' 8.30 cm/s E/LAT E' Ratio 4.62 (>14) Aortic Valve LVOT Max 126.00 (70-110 cm/s) LVOT VTI 23.08 cm AoV Peak Mateusz. 121.00 (50-130 cm/s) AO Peak GR. 5.90 mmHg AO Mean GR. 3.00 (<5 mmHg) AO VTI 19.96 (18-25 cm) FABI (VTI) 1.58 (2.5-4.5 cm2) Mitral Valve MV A Velocity 62.00 (40-130 cm/s) E/A Ratio 1.06 MV Decel. Time 163.00 (160-240 ms) MV Mean Gr. 1.20 (<2mmHg) Tricuspid Valve TR P. Velocity 184.00 cm/s RAP Estimate 10.00 mmHg RVSP 23.60 mmHg Left Ventricle Technically difficult study because of the patient factors and poor acoustic windows. Left atrium is mildly enlarged, left ventricle is mildly dilated, there is severe reduced left ventricular systolic function, visually estimated ejection fraction 25%, there is marked hypokinesis involving the mid to distal septum, anterior anterior apical and apical wall, basal septum is moderately hypokinetic. Grade 1 diastolic dysfunction seen without tissue Doppler evidence of raise left atrial pressure. Right Ventricle Right atrium and right ventricle are mildly enlarged with normal contractility. Aortic Valve Aortic valve is minimally thickened and fibrosed, there is no aortic stenosis or aortic insufficiency. Mitral Valve Mitral valve is grossly normal, there is trace mitral regurgitation. Tricuspid Valve Tricuspid valve grossly normal, there is trace tricuspid regurgitation, tricuspid regurgitation jet velocity is inadequate for calculation of the right ventricular systolic pressure. Pulmonic Valve Pulmonic valve is poorly visualized. Great Vessels Aortic root is normal size. Inferior vena cava is poorly visualized. Pericardium No significant pericardial effusion noted. Conclusion 1. Mild biatrial enlargement, mildly dilated left ventricle, severe reduced left ventricular systolic function, visually estimated ejection fraction 25% with segmental wall motion abnormalities described above, grade 1 diastolic dysfunction seen without tissue Doppler evidence of raise left atrial pressure. 2. Mildly enlarged right ventricle with normal contractility. 3. Trace mitral and tricuspid regurgitation. 4. No significant pericardial effusion noted. 5. Inferior vena cava is poorly visualized. Electronically signed by : Vinnie Rudd MD 12/14/2021 13:31:30
[2021-12-13 07:21] LABS: Hemoglobin 10.9 g/dL (12.2-16.2); Mean Corpuscular HGB Conc 33.3 g/dL (31.8-35.4); Mean Corpuscular Hemoglobin 29.3 pg (27.0-31.2); Platelet Count 242 K/mm3 (142-424); Red Blood Count 3.72 M/mm3 (4.20-5.40); White Blood Count 9.4 K/mm3 (4.8-10.8)
[2021-12-13 07:24] LABS: Neutrophils % 72.4 % (37.0-80.0)
[2021-12-13 07:25] LABS: Eosinophils # 0.4 K/mm3 (0.0-0.4); Lymphocytes # 1.6 K/mm3 (0.7-4.5); Lymphocytes % 17.1 % (10-50); Monocytes # 0.5 K/mm3 (0.1-1.0); Monocytes % 5.8 % (1.7-9.3); Neutrophils # 6.8 K/mm3 (1.8-7.8)
[2021-12-13 07:29] LABS: Eosinophils % 5 % (0-3); Lymphocytes % 19 % (10-50); Monocytes % 7 % (2-9); Neutrophils % 69 % (42-76); Total Cells Counted 100
[2021-12-13 07:30] LABS: Platelet Estimate Normal; RBC Morphology Normal
--- NOTE | 2021-12-13 07:38 | PC.NURSE ---
cardiovascular lab called for Echo at 0738.
[2021-12-13 07:45] LABS: Microscopic, Urine URINE MICROSCOPIC (MICROSCOPIC)
--- NOTE | 2021-12-13 07:49 | PC.NURSE ---
Cardiovasular in room doing Echo
[2021-12-13 07:52] LABS: Appearance,Urine CLEAR (Clear); Bilirubin,Urine Negative (Negative); Blood, Urine Negative (Negative); Color,Urine YELLOW (Yellow); Glucose,Urine (UA) Negative (Negative); Ketones,Urine Negative (Negative); Leukocyte Esterase,Urine Negative (Negative); Nitrate,Urine Negative (Negative); Protein,Urine Negative (Negative); Urobilinogen,Urine 0.2 EU/dl (0.2)
[2021-12-13 08:16] LABS: WBC,Urine Occasional #/hpf (0-3)
[2021-12-13 08:17] LABS: Calcium Oxalate Crystals,Urine 1+ /lpf
--- NOTE | 2021-12-13 08:41 | PC.NURSE ---
pt refused lovenox
--- NOTE | 2021-12-13 08:41 | PC.NURSE ---
dr boyce spoke to dr cruz about lovenox refusal
--- NOTE | 2021-12-13 09:34 | HMH.PHAINT ---
home medication list verified using list from outpatient pharmacy and pt interview
--- NOTE | 2021-12-13 09:35 | P.CONPHA_ITS ---
[facility] Pharmacy VTE Monitoring - Patient Demographics Admission date: 12/13/21 Report Date: 12/13/21 Time: 09:36 Allergies/Adverse Reactions: Patient Allergies No Known Allergies Allergy (Verified 10/23/21 17:30) Height: 1.75 m Weight: 81.647 kg Patient Problems: Current Active Problems Acute exacerbation of chronic obstructive airways disease (Acute) NSTEMI (non-ST elevated myocardial infarction) (Acute) - VTE Risk Labs: VTE Related Lab Results Hgb 10.9 g/dL (12.2-16.2) L 12/13/21 05:40 Hct 32.8 % (37.0-47.0) L 12/13/21 05:40 Plt Count 242 K/mm3 (142-424) 12/13/21 05:40 BUN 14 mg/dl (7-17) 12/13/21 05:40 Creatinine 1.00 mg/dl (0.52-1.04) 12/13/21 05:40 Estimated Creat Clear 68 mL/min (50-200) 12/13/21 05:40 Clinical Trial Participant: No - Prophylaxis VTE Prophylaxis Ordered?: Yes Types of VTE Prophylaxis: TEDS Knee High
--- NOTE | 2021-12-13 10:09 | PC.NURSE ---
Consuelo Back to bedside. Stated pt is going to laboratory immunologist. Attempted to call report to 2nd floor and advise them that pt will be going to laboratory immunologist first, but was told nurse is in the middle of care with another pt and will return my call.
--- NOTE | 2021-12-13 10:12 | HMH.CNCARD ---
<Consuelo Segura - Last Filed: 12/13/21 10:13> History of Present Illness Consult date: 12/13/21 Requesting physician: Ephraim Lombardo Consult reason: chest pain Chief complaint: chest pain History of present illness: This is a 71-year-old white female who presented to the emergency department after waking up around 2 AM this morning with heaviness in the substernal aspect of her chest. She states that this was a crushing heavy sensation that woke her up. Is associated with shortness of breath and nausea. She also states that she has been having diaphoresis and hot flashes with the chest heaviness. The chest heaviness is radiating to her back. She states her symptoms started about a week ago but really were not that bad until they woke her up at 2 AM this morning. She states that she is still having the heaviness now and does not feel well. She states that she is significantly short of breath. She reports that her has recently had the flu and she has recently have had pneumonia and just has not gotten any better. She denies any fever, chills, vomiting, diarrhea. She states that she does have body aches. Her shortness of breath is associated with orthopnea. The patient does have an elevated troponin and cardiology was consulted. [facility] History I have reviewed the patient's past medical history: Yes Medical History: Reports:: Carotid Stenosis, Chronic Obstructive Pulmonary Disease (COPD), Coronary Artery Disease, Deep Vein Thrombosis, Gastroesophageal Reflux Disease(GERD), Hyperlipidemia, Hypertension, Lung Disease Denies:: Cancer, Diabetes Mellitus Type 1, Diabetes Mellitus Type 2, Internal Pacemaker, MRSA, Seizures *Have you ever received a pneumonia vaccine?: Yes *Have you received a flu vaccine this season?: Yes Other Medical History: Reports: Anemia, Arthritis, Cataracts, Fibromyalgia Other Surgeries: Yes: Angiogram, Cardiac Catheterization, Cholecystectomy, Colonoscopy, Coronary Stent, EGD, Hysterectomy-Total, Sinus Surgery. No: Pacemaker Amputation: No Fractures: No - *Social History Smoking Status: Current every day smoker Tobacco Type: cigarettes # Packs/Day (cigarettes): 1 #Yrs smoked (if former smoker): 53 Alcohol Intake: never Alcohol Intake Frequency:: a few times a month Substance Use Type: denies use *Occupational Status:: retired Housing: house Household Members: spouse *Travel in the last 8 weeks: None Family Hx:: Cancer, Heart Attack, Hyperlipidemia, Hypertension Meds Home Medications Medication Instructions Recorded Confirmed Type Aspirin [Aspir 81] 81 mg PO HS 01/30/19 12/13/21 History Albuterol Sulfate [Proventil-HFA 2 puffs IH QIDP PRN 08/03/19 12/13/21 History 90mcg/puff Inh] clonazepam 0.5 mg tablet 0.5 mg PO TIDP PRN 09/07/19 12/13/21 History fluoxetine 20 mg capsule 20 mg PO HS cap 05/15/20 12/13/21 History losartan 50 mg tablet 50 mg PO HS 06/07/20 12/13/21 History Azithromycin [Zithromax 250mg tab] 250 mg PO MOWEFR 02/05/21 12/13/21 History metoprolol succinate 25 mg 25 mg PO HS tab 02/05/21 12/13/21 History tablet,extended release 24 hr Fluticasone/Umeclidin/Vilanter 1 each IH DAILY 06/12/21 12/13/21 History [Trelegy Ellipta 100-62.5-25] Promethazine/Dextromethorphan 5 ml PO TIDP PRN 10/22/21 12/13/21 History [Promethazine-Dm 6.25-15 mg/5Ml] Omeprazole [Omeprazole 40mg 40 mg PO DAILY 10/24/21 12/13/21 History Capsule] Atorvastatin Calcium [Lipitor 10mg 10 mg PO HS 12/13/21 12/13/21 History Tablet*] Clopidogrel Bisulfate [Plavix] 75 mg PO HS 12/13/21 12/13/21 History predniSONE [Prednisone 20mg 20 mg PO MOWEFR 12/13/21 12/13/21 History Tab] Allergies Allergy/AdvReac Type Severity Reaction Status Date / Time No Known Allergies Allergy Verified 10/23/21 17:30 Exam Vital signs and Labs for Last 24 Hours: Temp Pulse Resp BP Pulse Ox 99.9 F H 98 H 22 139/80 96 12/13/21 06:45 12/13/21 06:00 12/13/21 06:00 12/13/21 06:00 12/13/21
[2021-12-13 10:27] LABS: Troponin I 1.18 ng/ml (0.00-0.034)
--- NOTE | 2021-12-13 10:31 | PC.NURSE ---
Krista from lab called critical on patient, Trop of 1.18. repeated and verified.
[2021-12-13 12:01] LABS: Adenovirus,PCR Not Detected (NotDetected); Bordetella Pertussis Not Detected (NotDetected); Chlamydophila Pneumoniae, PCR Not Detected (NotDetected); Coronavirus 229E Not Detected (NotDetected); Coronavirus NL63 Not Detected (NotDetected); Coronavirus OC43 Not Detected (NotDetected); Coronovirus HKU1,PCR Not Detected (NotDetected); Human Metapneumovirus Not Detected (NotDetected); Influenza A, PCR Not Detected (NotDetected); Influenza AH1, 2009 Not Detected (NotDetected); Influenza AH1, PCR Not Detected (NotDetected); Influenza AH3,PCR Not Detected (NotDetected); Influenza B, PCR Not Detected (NotDetected); Mycoplasma Pneumoniae, PCR Not Detected (NotDetected); Parainfluenza 1, PCR Not Detected (NotDetected); Parainfluenza 2, PCR Not Detected (NotDetected); Parainfluenza 3, PCR Not Detected (NotDetected); Parainfluenza 4, PCR Not Detected (NotDetected); Respiratory Syncytial Virus Not Detected (NotDetected); Rhinovirus/Enterovirus Not Detected (NotDetected)
[2021-12-13 12:04] LABS: CATHL Activated Clotting Time 345 SEC (74-125)
--- NOTE | 2021-12-13 13:55 | HMH.HP ---
*Admission Date: 12/13/21 *Chief complaint: Shortness of air/chest discomfort *History of present illness: This is a 71-year-old white female who presented to the emergency department after waking up around 2 AM this morning with heaviness in the substernal aspect of her chest. She states that this was a crushing heavy sensation that woke her up. Is associated with shortness of breath and nausea. She also states that she has been having diaphoresis and hot flashes with the chest heaviness. The chest heaviness is radiating to her back. She states her symptoms started about a week ago but really were not that bad until they woke her up at 2 AM this morning. She states that she is still having the heaviness now and does not feel well. She states that she is significantly short of breath. She reports that her has recently had the flu and she has recently have had pneumonia and just has not gotten any better. She denies any fever, chills, vomiting, diarrhea. She states that she does have body aches. Her shortness of breath is associated with orthopnea. Her ER work-up consisted of chest x-ray, EKGs which showed ST changes, troponin elevation and negative flu and Covid testing. Patient was admitted to floor after being taken to [facility] where stent was placed. Please see notes below. [facility] History I have reviewed the patient's past medical history: Yes Medical History: Reports:: Carotid Stenosis, Chronic Obstructive Pulmonary Disease (COPD), Coronary Artery Disease, Deep Vein Thrombosis, Gastroesophageal Reflux Disease(GERD), Hyperlipidemia, Hypertension, Lung Disease Denies:: Cancer, Diabetes Mellitus Type 1, Diabetes Mellitus Type 2, Internal Pacemaker, MRSA, Seizures *Have you ever received a pneumonia vaccine?: Yes *Have you received a flu vaccine this season?: Yes Other Medical History: Reports: Anemia, Arthritis, Cataracts, Fibromyalgia Other Surgeries: Yes: Angiogram, Cardiac Catheterization, Cholecystectomy, Colonoscopy, Coronary Stent, EGD, Hysterectomy-Total, Sinus Surgery. No: Pacemaker Amputation: No Fractures: No - *Social History Smoking Status: Former smoker Tobacco Type: cigarettes # Packs/Day (cigarettes): 1 #Yrs smoked (if former smoker): 53 Smoking End Date: 10/23/21 Alcohol Intake: never Alcohol Intake Frequency:: a few times a month Substance Use Type: denies use *Occupational Status:: retired Housing: house Household Members: spouse *Travel in the last 8 weeks: None Family Hx:: Cancer, Heart Attack, Hyperlipidemia, Hypertension Review of Systems - Review of Systems Review of systems:: pertinent systems reviewed and negative unless documented below - *Neurologic Denies headache(s), Denies seizure-like activity Meds Home Medications Medication Instructions Recorded Confirmed Type Aspirin [Aspir 81] 81 mg PO HS 01/30/19 12/13/21 History Albuterol Sulfate [Proventil-HFA 2 puffs IH QIDP PRN 08/03/19 12/13/21 History 90mcg/puff Inh] clonazepam 0.5 mg tablet 0.5 mg PO TIDP PRN 09/07/19 12/13/21 History fluoxetine 20 mg capsule 20 mg PO HS cap 05/15/20 12/13/21 History losartan 50 mg tablet 50 mg PO HS 06/07/20 12/13/21 History Azithromycin [Zithromax 250mg tab] 250 mg PO MOWEFR 02/05/21 12/13/21 History metoprolol succinate 25 mg 0.5 tab PO HS tab 02/05/21 12/13/21 History tablet,extended release 24 hr Fluticasone/Umeclidin/Vilanter 1 each IH DAILY 06/12/21 12/13/21 History [Trelegy Ellipta 100-62.5-25] Promethazine/Dextromethorphan 5 ml PO TIDP PRN 10/22/21 12/13/21 History [Promethazine-Dm 6.25-15 mg/5Ml] Omeprazole [Omeprazole 40mg 40 mg PO DAILY 10/24/21 12/13/21 History Capsule] Atorvastatin Calcium [Lipitor 20mg 20 mg PO HS 12/13/21 12/13/21 History Tab] Clopidogrel Bisulfate [Plavix] 75 mg PO HS 12/13/21 12/13/21 History Mecobalamin [B12 Active] 1,000 mcg PO HS 12/13/21 12/13/21 History polyethylene glycoL 3350 [Miralax 17 gm PO DAILY 12/13/21 12/13/21 History
--- NOTE | 2021-12-13 15:40 | PC.NURSE ---
Radial band removed as follows: 1335 2mls removed, 15 left 1350 2mls removed, 13 left 1415 2mls removed, 11 left 1430 2mls removed, 9 left 1445 2mls removed, 7 left 1500 2mls removed, 5 left 1530 radial band removed, telfa and tegaderm placed
--- NOTE | 2021-12-13 17:10 | PC.NURSE ---
Pt is alert and oriented x4 and pleasant with staff. Some crackles noted to lungs and is diminished. She is currently on 3L NC w/O2 sats in the upper 90's. Will wean as appropriate. She has scattered bruising to all of her body. Lasix administered per MAR with good urine output. It has been requested that she press the call light so that we can assist her to the bathroom but she has ambulated independently and has tolerated well. Bed alarm is set and pt's is at bedside. Telfa and tegaderm to right wrist has a small amount of shadowing on bandage. Will closely monitor. She reports feeling better at this time.
[2021-12-14] VITALS: BP 137/66; PULSE 60; PULSE 77; RESP 18; TEMP 36.6; O2SAT 95
[2021-12-14 04:00] VITALS: BP 126/62; PULSE 50; PULSE 65; RESP 18; TEMP 36.6; O2SAT 97
[2021-12-14 05:00] VITALS: BMI 26.4
[2021-12-14 06:39] LABS: Chloride 99 mmol/L (98-107)
[2021-12-14 06:40] LABS: Alanine Aminotransferase 23 U/L (12-78); Albumin Level 3.9 g/dl (3.5-5.0); Alkaline Phosphatase 108 U/L (38-126); Aspartate Amino Transferase 36 U/L (14-36); Bilirubin,Direct 0.2 mg/dl (0.0-0.4); Bilirubin,Indirect 0.2 mg/dL (0.0-0.9); Bilirubin,Total 0.4 mg/dl (0.2-1.3); Bilirubin,Unconjugated 0.1 mg/dL (0.0-1.1); Cholesterol 146 mg/dl (140-200); HDL Cholesterol 48 mg/dl (40-60); Potassium 4.2 mmoL/L (3.5-5.1); Sodium 135 mmol/L (136-145); Total Protein,Serum 6.5 g/dl (6.3-8.2); Triglycerides 104 mg/dl (30-150); VLDL Cholesterol 21 mg/dL (0-40)
[2021-12-14 06:42] LABS: Blood Urea Nitrogen 21 mg/dl (7-17); Creatinine Clearance Estimated 64 mL/min (50-200); Estimated Glomerular Filt Rate 49 ml/min (>60); GFR (African American) 60 ML/MIN (>60)
[2021-12-14 06:43] LABS: Anion Gap 5.2 mEq/L (5-15); Calcium 8.5 mg/dl (8.4-10.2); Carbon Dioxide 35 mmol/L (22.0-30.0); Glucose 100 mg/dl (74-100); Magnesium 1.8 mg/dl (1.6-2.3)
[2021-12-14 06:47] LABS: Basophils % 0.4 % (0.1-2.0); Hematocrit 32.5 % (37.0-47.0); Hemoglobin 10.6 g/dL (12.2-16.2); Lymphocytes # 1.6 K/mm3 (0.7-4.5); Lymphocytes % 22.1 % (10-50); Mean Corpuscular HGB Conc 32.6 g/dL (31.8-35.4); Mean Corpuscular Hemoglobin 29.1 pg (27.0-31.2); Mean Corpuscular Volume 89.2 fl (81-99); Mean Platelet Volume 7.7 fl (7.4-10.4); Monocytes # 0.5 K/mm3 (0.1-1.0); Monocytes % 7.4 % (1.7-9.3); Neutrophils # 5.2 K/mm3 (1.8-7.8); Neutrophils % 70.1 % (37.0-80.0); Platelet Count 232 K/mm3 (142-424); Red Blood Count 3.65 M/mm3 (4.20-5.40); Red Cell Distribution Width 14.1 % (11.5-17.5); White Blood Count 7.4 K/mm3 (4.8-10.8)
[2021-12-14 06:57] LABS: Direct LDL Cholesterol 64.03 mg/dL (100-129)
[2021-12-14 07:38] VITALS: BP 134/92; PULSE 72; RESP 24; TEMP 36.1; O2SAT 98
[2021-12-14 08:00] VITALS: PULSE 70
--- NOTE | 2021-12-14 08:10 | HMH.PNCARD ---
Subjective Date: 12/14/21 Time: 08:10 Principal diagnosis: NSTEMI Interval history: 71-year-old white female in bed in no acute distress but still has conversational dyspnea which she says is her baseline. She uses 2 L of oxygen by nasal cannula at home. All of her associated chest pain and back pain has resolved with stenting yesterday. She did have a brief 4 beat nonsustained ventricular tachycardia overnight and around 100 bpm. I have asked her to get up and ambulate this morning to see how she feels. She is anxious to go home. Exam Vital signs and Labs for Last 24 Hours: Temp Pulse Resp BP Pulse Ox 97.0 F L 72 24 134/92 H 98 12/14/21 07:38 12/14/21 07:38 12/14/21 07:38 12/14/21 07:38 12/14/21 07:38 Laboratory Results - last 24 hr 12/13/21 07:38: Urine WBC Occasional, Ur Squamous Epith Cells 3-5, Calcium Oxalate Crystal 1+ 12/13/21 09:31: Troponin I 1.18 H 12/13/21 11:55: Chlamy pneumoniae PCR Not detected, Adenovirus (PCR) Not detected, B. pertussis DNA (PCR) Not detected, Coronavirus OC43 (PCR) Not detected, Coronavirus HKU1 (PCR) Not detected, Coronavirus 229E (PCR) Not detected, Coronavirus NL63 (PCR) Not detected, Human Metapneumovir PCR Not detected, Influenza A (H1) PCR Not detected, Influ A (H1N1/09) PCR Not detected, Influenza A (H3) PCR Not detected, Influenza Type A (PCR) Not detected, Influenza Type B (PCR) Not detected, M. pneumoniae (PCR) Not detected, Parainfluenza 1 (PCR) Not detected, Parainfluenza 2 (PCR) Not detected, Parainfluenza 3 (PCR) Not detected, Parainfluenza 4 (PCR) Not detected, RSV (PCR) Not detected, Entero/Rhino (PCR) Not detected 12/13/21 12:20: Activated Clotting Time 345 H* 12/14/21 06:07: WBC 7.4, RBC 3.65 L, Hgb 10.6 L, Hct 32.5 L, MCV 89.2, MCH 29.1, MCHC 32.6, RDW 14.1, Plt Count 232, MPV 7.7, Neut % (Auto) 70.1, Lymph % (Auto) 22.1, [place] % (Auto) 7.4, Eos % (Auto) 0.0 L, Baso % (Auto) 0.4, Neut # (Auto) 5.2, Lymph # (Auto) 1.6, [place] # (Auto) 0.5, Eos # (Auto) 0.0, Baso # (Auto) 0.0 12/14/21 06:07: Sodium 135 L, Potassium 4.2, Chloride 99, Carbon Dioxide 35 H, Anion Gap 5.2, BUN 21 H D, Creatinine 1.10 H, Estimated Creat Clear 64, Estimated GFR 49 L, Est GFR ( Amer) 60, Glucose 100, Calcium 8.5, Magnesium 1.8 12/14/21 06:07: Total Bilirubin 0.4, Direct Bilirubin 0.2, Conjugated Bilirubin 0.0, Indirect Bilirubin 0.2, Unconjugated Bilirubin 0.1, AST 36, ALT 23, Alkaline Phosphatase 108, Total Protein 6.5, Albumin 3.9, Triglycerides 104, Cholesterol 146, LDL Cholesterol Direct 64.03 L, VLDL Cholesterol 21, HDL Cholesterol 48, Cholesterol/HDL Ratio 3.0 I & O for Last 24 hours: Intake & Output 12/11/21 12/12/21 12/13/21 12/14/21 11:59 11:59 11:59 11:59 Intake Total 640 / 640 Output Total 0 / 0 Balance 640 / 640 Weight 180 lb 184 lb 12.8 oz - *Routine Respiratory Exam Present: decreased breath sounds, wheezes, diminished air movement - *Routine Cardiovascular Exam Present: RRR - *Routine Extremities Exam Absent: cyanosis, clubbing, edema - *Routine Neurological Exam Present: alert, oriented X3 Progress Note: A&P (1) NSTEMI (non-ST elevated myocardial infarction) Status: Acute (2) Acute exacerbation of chronic obstructive airways disease Status: Acute (3) Typical angina Status: Acute (4) CAD (coronary artery disease) Status: Chronic (5) Carotid artery stenosis Status: Chronic (6) Dyspnea Status: Chronic (7) HLD (hyperlipidemia) Status: Chronic (8) Hypertension Status: Chronic (9) Stented coronary artery Status: Chronic (10) Tobacco dependence Status: Chronic (11) Acute systolic CHF (congestive heart failure) Status: Acute Assessment and Plan for All Diagnoses:: Patient to get up and ambulate this morning. If no complaints of chest pain and no arrhythmias then will consider discharge home later today. Echocardiogram preliminary shows EF around 40% but official report pending. Home medication
--- NOTE | 2021-12-14 08:29 | HMH.DCSUM ---
General - General Admission date:: 12/13/21 Discharge date: 12/14/21 HPI HPI: This is a 71-year-old white female who presented to the emergency department after waking up around 2 AM this morning with heaviness in the substernal aspect of her chest. She states that this was a crushing heavy sensation that woke her up. Is associated with shortness of breath and nausea. She also states that she has been having diaphoresis and hot flashes with the chest heaviness. The chest heaviness is radiating to her back. She states her symptoms started about a week ago but really were not that bad until they woke her up at 2 AM this morning. She states that she is still having the heaviness now and does not feel well. She states that she is significantly short of breath. She reports that her has recently had the flu and she has recently have had pneumonia and just has not gotten any better. She denies any fever, chills, vomiting, diarrhea. She states that she does have body aches. Her shortness of breath is associated with orthopnea. Her ER work-up consisted of chest x-ray, EKGs which showed ST changes, troponin elevation and negative flu and Covid testing. Patient was admitted to floor after being taken to [facility] where stent was placed. Please see notes below. Hospital Course Hospital Course: 71-year-old female admitted for NSTEMI. Cardiology consulted, taken to [facility] with finding of severely elevated left ventricular end-diastolic pressure, severe ostial dominant right coronary disease reduced with 1 stent, and large anterior wall regional motion abnormality. Patient tolerated the procedure well. Is essentially pain-free this morning per her report. Stable on 2 L oxygen which is her baseline from home. Has a bit of a dry cough but no fever. Tolerating p.o. intake. In regard to her CAD, CHF, patient is overall responded appropriately to left heart cath and stenting of offending vessel. Recommendations include dual antiplatelet therapy, Entresto and beta-alina, diuretics for elevated left ventricular end-diastolic pressure. Recommend cardiac rehab as an outpatient. Avoiding tobacco products (she states she has quit smoking over the past 3 to 5 months). Patient already on aspirin and Plavix. Will increase Lipitor to 40 mg daily. Initiated Entresto this morning as her last dose of losartan was in the evening on 12/12. Already on metoprolol at baseline. Continue Lasix daily. Spironolactone daily. Monitor for hypotension. Blood pressure soft during admission. Counseled patient on side effects of new medications and medication changes. Medically stable for discharge home today. Examined on day of discharge. Plan for close follow-up in the office. Objective Vital signs: Temp Pulse Resp BP Pulse Ox 97.0 F L 72 24 134/92 H 98 12/14/21 07:38 12/14/21 07:38 12/14/21 07:38 12/14/21 07:38 12/14/21 07:38 Narrative: - Constitutional NAD on 2L NC - *Routine HEENT Exam Head: Present: normocephalic Eye: Present: EOMI, PERRL ENT: Present: mucous membranes moist - *Routine Neck Exam Present: supple. Absent: lymphadenopathy - *Routine Respiratory Exam Present: decreased breath sounds, rhonchi, intermittent wheeze. - *Routine Cardiovascular Exam Present: RRR - *Routine Abdominal Exam Present: soft, normoactive bowel sounds. Absent: tenderness - *Routine Extremities Exam Absent: cyanosis, clubbing, edema; Right radial insertion site CDI, small bruising.; scattered bruising and age-related damage on arms and legs. - *Routine Skin Exam Present: warm. large ecchymosis on chest from removal of stickers. - *Routine Neurological Exam Present: alert, oriented X3 Results Labs on day of discharge: Labs from last 24 hours 12/14/21 12/14/21 12/14/21 06:07 06:07 06:07 WBC 7.4 RBC 3.65 L Hgb 10.6 L Hct 32.5 L MCV 89.2 MCH 29.1 MCHC 32.6 RDW 14.1 Plt Co
[2021-12-14 10:24] VITALS: BP 126/70; BP 92/54; BP 96/58; PULSE 71; PULSE 74; PULSE 84
[2021-12-14 12:00] VITALS: BP 124/80; PULSE 70; PULSE 72; RESP 22; TEMP 36.6; O2SAT 99
--- NOTE | 2021-12-14 13:55 | HMH.PHACLD ---
Shayy Black has received discharge medication counseling on the following medications: Entresto, Spironolactone, Furosemide, Atorvastatin, Aspirin, Metoprolol, Plavix Explained to patient purpose, how to take, possible side effects. Pt understood and had no questions or concerns
[2021-12-15 07:53] LABS: Peripheral Smear Review Scanned Result
== END 2021-12-14 14:40 | disposition home or self-care (01) | DRG 280 ==
LOC: ER 06:47 → 2ND 08:42
PROVIDERS: Internal Medicine; Internal Medicine Adolescent Medicine; Nurse Practitioner Family; Admitting Provider Internal Medicine Adolescent Medicine; Emergency Provider Emergency Medicine; PCP Internal Medicine Adolescent Medicine; Visit Provider Internal Medicine Adolescent Medicine
DX: I21.4 Non-ST elevation (NSTEMI) myocardial infarction (principal); I50.21 Acute systolic (congestive) heart failure; J44.1 Chronic obstructive pulmonary disease with (acute) exacerbation; I65.29 Occlusion and stenosis of unspecified carotid artery; I25.10 Atherosclerotic heart disease of native coronary artery without angina pectoris; Z86.718 Personal history of other venous thrombosis and embolism; K21.9 Gastro-esophageal reflux disease without esophagitis; E78.5 Hyperlipidemia, unspecified; I10 Essential (primary) hypertension; M79.7 Fibromyalgia; F17.210 Nicotine dependence, cigarettes, uncomplicated; Z95.5 Presence of coronary angioplasty implant and graft; M19.90 Unspecified osteoarthritis, unspecified site; I11.0 Hypertensive heart disease with heart failure
CPT/HCPCS: 71045; 71275; 80048; 80053; 80061; 80076; 81001; 82803; 83605; 83735; 83880; 84145; 84484; 85007; 85025; 85347; 85651; 86140; 87040; 87275; 87276; 87486; 87581; 87632; 87798; 93005; 93306; 93458; 96365; 96375; 99152; 99284; C1725; C1769; C1876; C9803; J1644; J2405; Q9967; U0003; U0005

== ENCOUNTER 2021-12-17 15:04 | Outpatient (CLI) | payer MEDICARE, OTHER, SELFPAY ==
[2021-12-17 15:11] VITALS: BP 136/85; PULSE 79; RESP 18; TEMP 36.2; O2SAT 100
--- NOTE | 2021-12-17 15:25 | PC.NURSE ---
1525-notified about pt's nausea and vomiting;new order for zofran 4mg ivp one time.
--- NOTE | 2021-12-17 15:28 | PC.NURSE ---
1528-gave pt zofran 4mg ivp
[2021-12-17 16:26] VITALS: BP 95/43; PULSE 80; RESP 18; O2SAT 100
== END 2021-12-17 16:27 | disposition home or self-care (01) ==
LOC: INF 15:07
PROVIDERS: PCP Internal Medicine Adolescent Medicine; Visit Provider Internal Medicine Adolescent Medicine
DX: E86.0 Dehydration (principal); Z95.5 Presence of coronary angioplasty implant and graft
CPT/HCPCS: 96360; 96375; J2405

== ENCOUNTER 2021-12-18 13:00 | Observation (INO) | payer MEDICARE, OTHER, SELFPAY ==
--- NOTE | 2021-12-18 13:08 | CA_ITS ---
APPROVED REPORT EXAM: Comprehensive 2D, Doppler, and color-flow Echocardiogram Road Repairer: Susan Dawkins CRT Ht: 5 ft 9 in Wt: 181lbs BSA: 1.98 BP: 143/53 mmHg Indications: COPD, smoker, HTN, HLD, CAD 25% ef on echo 12/13/21 35% EF on cath 12/13/21 M-Mode Dimensions RVDd 2.81 cm (0.9-2.6) LVDd 2.63 cm (3.5-5.7) LVDs 1.79 cm (3.5-5.7) IVSd 2.01 cm (0.6-1.1) PWd 1.16 cm (0.6-1.1) EF (Teich) 62.10% FS 31.90% EDV (Teich) 25.30 mL ESV (Teich) 9.60 mL Conclusion 1. Limited echocardiogram was performed. The study is technically very difficult and limited, endocardial surface of very poorly visualized, based on the current study ejection fraction and segmental wall motion abnormality cannot be assessed. 2. A repeat study with Definity contrast or transesophageal echocardiogram is recommended. Electronically signed by : Vinnie Rudd MD 12/18/2021 21:11:43
--- NOTE | 2021-12-18 13:09 | PC.NURSE ---
Pt arrived to the floor at this time.
[2021-12-18 13:17] LABS: Coronavirus 19, PCR Not Detected (NotDetected); Influenza B, PCR Not Detected (NotDetected)
--- NOTE | 2021-12-18 13:41 | XR_ITS ---
FINAL REPORT CLINICAL HISTORY: dyspnea. cough COMPARISON: December 13, 2021 FINDINGS: The heart size is normal. There is a calcified right paratracheal lymph node. The lungs are hyperinflated. There is abnormal lucency in the upper lobes probably due to centrilobular emphysema. There is no focal infiltrate or edema. There are no pleural effusions. There is no pneumothorax. There is no osseous abnormality. IMPRESSION: No acute cardiopulmonary process Reviewed, Interpreted and Dictated by Lopez Amaya MD Transcribed by Petr Funez Authenticated by Lopez Amaya MD on 12/18/2021 03:40:53 PM [facility]
[2021-12-18 13:49] LABS: Influenza A, PCR Detected (NotDetected)
--- NOTE | 2021-12-18 13:53 | HMH.HP ---
*Admission Date: 12/18/21 *Chief complaint: Weakness, fatigue, hypotension *History of present illness: 71-year-old white female with end-stage emphysema, prednisone and oxygen requiring, who last week was admitted to [facility] with back pain and chest pain, evaluation revealed non-STEMI and she underwent heart catheterization which revealed evidence of coronary disease with 1 stent placed and resulting depressed ejection fraction at 35%. She did well with this procedure and was discharged home with diuretics, beta-alina and Entresto. Unfortunately, she has become extremely weak and tired at home and her blood pressures been in the 80s. We counseled her to stop the Entresto and diuretics and yesterday she was given 1 L of IV fluid as an outpatient which she said helped her for about 2 hours. She began feeling poorly again last night, short of air, some more back pain and dyspnea and came to the emergency department where she was found to be hypotensive, weak and unable to stand on her own power. She was admitted to hospital for further diagnostic testing, IV fluids and reassessment of her cardio and pulmonary status. [facility] History I have reviewed the patient's past medical history: Yes Medical History: Reports:: Carotid Stenosis, Congestive Heart Failure, Chronic Obstructive Pulmonary Disease (COPD), Coronary Artery Disease, Deep Vein Thrombosis, Gastroesophageal Reflux Disease(GERD), Hyperlipidemia, Hypertension, Lung Disease Denies:: Cancer, Diabetes Mellitus Type 1, Diabetes Mellitus Type 2, Internal Pacemaker, MRSA, Seizures *Have you ever received a pneumonia vaccine?: Yes *Have you received a flu vaccine this season?: Yes Other Medical History: Reports: Anemia, Arthritis, Cataracts, Fibromyalgia, Sinus Problems Other Surgeries: Yes: Angiogram, Cardiac Catheterization, Cholecystectomy, Colonoscopy, Coronary Stent, EGD, Hysterectomy-Total, Sinus Surgery. No: Pacemaker Amputation: No Fractures: No - *Social History Smoking Status: Former smoker Tobacco Type: cigarettes # Packs/Day (cigarettes): 1 #Yrs smoked (if former smoker): 53 Alcohol Intake: never Alcohol Intake Frequency:: a few times a month Substance Use Type: denies use *Occupational Status:: retired Housing: house Household Members: spouse *Travel in the last 8 weeks: None Family Hx:: Cancer, Heart Attack, Hyperlipidemia, Hypertension Review of Systems - Review of Systems Review of systems:: pertinent systems reviewed and negative unless documented below Meds Home Medications Medication Instructions Recorded Confirmed Type Aspirin [Aspir 81] 81 mg PO HS 01/30/19 12/18/21 History Albuterol Sulfate [Proventil-HFA 2 puffs IH QIDP PRN 08/03/19 12/18/21 History 90mcg/puff Inh] clonazepam 0.5 mg tablet 0.5 mg PO TIDP PRN 09/07/19 12/18/21 History fluoxetine 20 mg capsule 20 mg PO HS cap 05/15/20 12/18/21 History Azithromycin [Zithromax 250mg tab] 250 mg PO MOWEFR 02/05/21 12/18/21 History metoprolol succinate 25 mg 0.5 tab PO HS tab 02/05/21 12/18/21 History tablet,extended release 24 hr Fluticasone/Umeclidin/Vilanter 1 each IH DAILY 06/12/21 12/18/21 History [Trelegy Ellipta 100-62.5-25] Promethazine/Dextromethorphan 5 ml PO TIDP PRN 10/22/21 12/18/21 History [Promethazine-Dm 6.25-15 mg/5Ml] Omeprazole [Omeprazole 40mg 40 mg PO DAILY 10/24/21 12/18/21 History Capsule] Clopidogrel Bisulfate [Plavix] 75 mg PO HS 12/13/21 12/18/21 History Mecobalamin [B12 Active] 1,000 mcg PO HS 12/13/21 12/18/21 History polyethylene glycoL 3350 [Miralax 17 gm PO DAILY 12/13/21 12/18/21 History 17gm Packet] predniSONE [Prednisone 20mg 0.5 tab PO MOWEFR 12/13/21 12/18/21 History Tab] Atorvastatin Calcium [Lipitor 40mg 40 mg PO HS 12/17/21 12/18/21 History Tab] Furosemide [Furosemide 40MG tAB*] 40 mg PO DAILY 12/17/21 12/18/21 History Sacubitril/Valsartan [Entresto 1 each PO BID 12/17/21 12/18/21 History 24/26mg Tablet] Spirono
[2021-12-18 13:55] VITALS: BMI 26.7
[2021-12-18 14:20] VITALS: BP 133/70; PULSE 96; RESP 20; TEMP 36.5; O2SAT 95
--- NOTE | 2021-12-18 14:37 | P.CONPHA_ITS ---
[facility] Pharm[facility] VTE Monitoring - Patient Demographics Admission date: 12/18/21 Report Date: 12/18/21 Time: 14:37 Allergies/Adverse Reactions: Patient Allergies No Known Allergies Allergy (Verified 10/23/21 17:30) Height: 1.75 m Weight: 82.1 kg Patient Problems: Current Active Problems Acute exacerbation of chronic obstructive airways disease (Acute) Influenza A (Acute) Hypotension (Acute) - VTE Risk Was VTE Risk Assessment Performed: Yes VTE Score: 8 VTE Risk Level: Moderate Risk Clinical Trial Participant: No - Prophylaxis VTE Prophylaxis Ordered?: Yes Types of VTE Prophylaxis: TEDS Knee High
--- NOTE | 2021-12-18 14:43 | HMH.PHAINT ---
home medication list verified using list from discharge on 12/14/21
[2021-12-18 15:02] LABS: Chloride 99 mmol/L (98-107); Potassium 3.8 mmoL/L (3.5-5.1); Sodium 132 mmol/L (136-145)
[2021-12-18 15:04] LABS: Blood Urea Nitrogen 24 mg/dl (7-17); Creatinine Clearance Estimated 69 mL/min (50-200); Estimated Glomerular Filt Rate 55 ml/min (>60); GFR (African American) 67 ML/MIN (>60)
[2021-12-18 15:05] LABS: Alanine Aminotransferase 14 U/L (12-78); Albumin Level 3.3 g/dl (3.5-5.0); Albumin/Globulin Ratio 1.4 (1.1-1.8); Alkaline Phosphatase 87 U/L (38-126); Anion Gap 7.8 mEq/L (5-15); Aspartate Amino Transferase 32 U/L (14-36); Bilirubin,Total 0.5 mg/dl (0.2-1.3); Calcium 7.8 mg/dl (8.4-10.2); Carbon Dioxide 29 mmol/L (22.0-30.0); Globulin 2.3 g/dL (1.3-3.2); Glucose 89 mg/dl (74-100); Magnesium 1.7 mg/dl (1.6-2.3); Total Protein,Serum 5.6 g/dl (6.3-8.2)
[2021-12-18 15:12] VITALS: BMI 26.8
[2021-12-18 15:27] VITALS: BP 143/53; PULSE 84; RESP 24; TEMP 36.3; O2SAT 97
[2021-12-18 15:31] LABS: Lactic Acid 1.3 mmol/L (0.7-2.1)
[2021-12-18 17:01] LABS: Basophils # 0.1 K/mm3 (0-0.2); Basophils % 0.8 % (0.1-2.0); Eosinophils # 0.3 K/mm3 (0.0-0.4); Eosinophils % 3.9 % (0.1-12.0); Hematocrit 40.6 % (37.0-47.0); Hemoglobin 12.6 g/dL (12.2-16.2); Lymphocytes # 1.6 K/mm3 (0.7-4.5); Lymphocytes % 19.8 % (10-50); Mean Corpuscular Hemoglobin 28.1 pg (27.0-31.2); Mean Corpuscular Volume 90.6 fl (81-99); Mean Platelet Volume 8.6 fl (7.4-10.4); Monocytes # 0.4 K/mm3 (0.1-1.0); Monocytes % 5.2 % (1.7-9.3); Neutrophils # 5.6 K/mm3 (1.8-7.8); Neutrophils % 70.3 % (37.0-80.0); Platelet Count 178 K/mm3 (142-424); Red Blood Count 4.48 M/mm3 (4.20-5.40); White Blood Count 7.9 K/mm3 (4.8-10.8)
--- NOTE | 2021-12-18 17:01 | PC.NURSE ---
Pt is alert and oriented x4. Lungs have rhonchi and wheezes. She is currently on 2.5L NC w/O2 sats measuring >95%. She has reported nausea once, phenergan administered per mar w/favorable results noted on reassessment. Scattered extensive bruising to entire body. She is currently resting in bed watching tv at this time.
[2021-12-18 19:00] VITALS: O2SAT 97
[2021-12-18 20:42] VITALS: BP 122/43; PULSE 72; RESP 19; TEMP 36.7; O2SAT 97
[2021-12-18 23:53] VITALS: BP 119/50; PULSE 58; RESP 18; TEMP 36.4; O2SAT 99
[2021-12-19 04:00] VITALS: BP 111/45; PULSE 59; RESP 18; TEMP 36.4; O2SAT 99
[2021-12-19 05:00] VITALS: BMI 27.4
[2021-12-19 06:51] LABS: Eosinophils # 0.6 K/mm3 (0.0-0.4); Monocytes # 0.4 K/mm3 (0.1-1.0); Neutrophils # 5.2 K/mm3 (1.8-7.8)
[2021-12-19 06:53] LABS: Chloride 106 mmol/L (98-107)
[2021-12-19 06:54] LABS: Sodium 137 mmol/L (136-145)
[2021-12-19 06:56] LABS: Blood Urea Nitrogen 17 mg/dl (7-17); Creatinine Clearance Estimated 70 mL/min (50-200); Estimated Glomerular Filt Rate 62 ml/min (>60); GFR (African American) 75 ML/MIN (>60)
[2021-12-19 06:57] LABS: Calcium 7.2 mg/dl (8.4-10.2); Carbon Dioxide 29 mmol/L (22.0-30.0); Glucose 68 mg/dl (74-100)
[2021-12-19 07:05] LABS: Basophils % 0.5 % (0.1-2.0); Eosinophils % 7.2 % (0.1-12.0); Hematocrit 29.1 % (37.0-47.0); Lymphocytes # 1.8 K/mm3 (0.7-4.5); Lymphocytes % 22.3 % (10-50); Mean Corpuscular HGB Conc 32.1 g/dL (31.8-35.4); Mean Corpuscular Hemoglobin 29.4 pg (27.0-31.2); Mean Corpuscular Volume 91.4 fl (81-99); Mean Platelet Volume 8.7 fl (7.4-10.4); Platelet Count 217 K/mm3 (142-424); Red Blood Count 3.19 M/mm3 (4.20-5.40); Red Cell Distribution Width 14.9 % (11.5-17.5); White Blood Count 8.1 K/mm3 (4.8-10.8)
[2021-12-19 07:21] LABS: Anion Gap 6.4 mEq/L (5-15); Potassium 4.4 mmoL/L (3.5-5.1)
[2021-12-19 08:00] VITALS: BP 148/83; PULSE 77; RESP 24; TEMP 36.7; O2SAT 95
--- NOTE | 2021-12-19 08:23 | P.PN_ITS ---
Internal Medicine - PN: Subj *Date: 12/19/21 *Time: 08:23 Interval history: Overnight patient stabilized, with normal heart rates and improving blood pressure. Still has very minimal p.o. intake and feels very nauseated, tired and cannot get up to go to the bathroom by herself. Exam Vital signs and Labs for Last 24 Hours: Temp Pulse Resp BP Pulse Ox 98.1 F 77 24 148/83 H 95 12/19/21 08:00 12/19/21 08:00 12/19/21 08:00 12/19/21 08:00 12/19/21 08:00 Laboratory Results - last 24 hr 12/18/21 13:13: SARS-CoV-2 (PCR) Not detected, Influenza A Untype (PCR) Detected A, Influenza Type B (PCR) Not detected 12/18/21 14:20: Sodium 132 L, Potassium 3.8, Chloride 99, Carbon Dioxide 29, Anion Gap 7.8, BUN 24 H, Creatinine 1.00, Estimated Creat Clear 69, Estimated GFR 55 L, Est GFR ( Amer) 67, Glucose 89, Calcium 7.8 L, Magnesium 1.7, Total Bilirubin 0.5, AST 32, ALT 14, Alkaline Phosphatase 87, Total Protein 5.6 L, Albumin 3.3 L, Globulin 2.3, Albumin/Globulin Ratio 1.4 12/18/21 15:15: WBC 7.9, RBC 4.48, Hgb 12.6, Hct 40.6, MCV 90.6, MCH 28.1, MCHC 31.0 L, RDW 15.0, Plt Count 178, MPV 8.6, Neut % (Auto) 70.3, Lymph % (Auto) 19.8, [place] % (Auto) 5.2, Eos % (Auto) 3.9, Baso % (Auto) 0.8, Neut # (Auto) 5.6, Lymph # (Auto) 1.6, [place] # (Auto) 0.4, Eos # (Auto) 0.3, Baso # (Auto) 0.1 12/18/21 15:15: Lactate 1.3 12/19/21 05:53: WBC 8.1, RBC 3.19 L D, Hct 29.1 L, MCV 91.4, MCH 29.4, MCHC 32.1, RDW 14.9, Plt Count 217, MPV 8.7, Neut % (Auto) 65.0, Lymph % (Auto) 22.3, [place] % (Auto) 5.0, Eos % (Auto) 7.2, Baso % (Auto) 0.5, Neut # (Auto) 5.2, Lymph # (Auto) 1.8, [place] # (Auto) 0.4, Eos # (Auto) 0.6 H, Baso # (Auto) 0.0 12/19/21 05:53: Sodium 137, Potassium 4.4, Chloride 106, Carbon Dioxide 29, Anion Gap 6.4, BUN 17 D, Creatinine 0.90, Estimated Creat Clear 70, Estimated GFR 62, Est GFR ( Amer) 75, Glucose 68 L D, Calcium 7.2 L I & O for Last 24 hours: Intake & Output 12/16/21 12/17/21 12/18/21 12/19/21 11:59 11:59 11:59 11:59 Intake Total 1549 / 1549 Output Total 150 / 150 Balance 1399 / 1399 Weight 185 lb 4.8 oz Narrative: Alert, oriented x3. Lungs have fairly good air entry, minimal expiratory rhonchi. Heart rate regular. Abdomen soft, very minimal tenderness in the epigastric areas. No edema, lots of skin bruising and thinning and nicotine changes. Assessment and Plan (1) Influenza A Status: Acute Category: Medical Code(s): J10.1 - Influenza due to other identified influenza virus with other respiratory manifestations (2) Hypotension Status: Acute Category: Medical Code(s): I95.9 - Hypotension, unspecified (3) Acute exacerbation of chronic obstructive airways disease Status: Acute Category: Medical Code(s): J44.1 - Chronic obstructive pulmonary disease with (acute) exacerbation - Assessment and plan all Dx Assessment and Plan for all problems:: Influenza A-started Tamiflu, supportive care. COPD, continue nebs, CHF with hypotension, fluid depletion at home, probably secondary to influenza. Restart Entresto and Plavix today.
[2021-12-19 12:35] VITALS: BMI 27.4
[2021-12-19 15:22] VITALS: BP 117/73; PULSE 65; RESP 18; TEMP 37.4; O2SAT 98
--- NOTE | 2021-12-19 15:26 | PC.NURSE ---
PT IS RESTING IN BED. MEDICATED PER MAR FOR NAUSEA. ALERT AND ORIENTED X4. PT HAS BEEN GETTING UP TO THE BSC TO VOID. LUNG SOUNDS HAVE SCATTERED WHEEZES. ABDOMEN SOFT/NON TENDER WITH ACTIVE BOWEL SOUNDS. SCATTERED BRUISING NOTED. WILL CONTINUE TO MONITOR.
[2021-12-19 17:14] LABS: Hemoglobin 9.4 g/dL (12.2-16.2)
[2021-12-19 20:00] VITALS: O2SAT 98
[2021-12-20] VITALS: BP 117/73; PULSE 77; RESP 18; TEMP 36.8; O2SAT 92; O2SAT 97
[2021-12-20 04:00] VITALS: BP 164/75; PULSE 73; RESP 22; TEMP 36.6; O2SAT 97
[2021-12-20 05:00] VITALS: BMI 27.4
[2021-12-20 08:00] VITALS: BP 162/68; PULSE 73; RESP 22; TEMP 36.9; O2SAT 96
[2021-12-20 08:07] LABS: Basophils % 0.3 % (0.1-2.0); Eosinophils # 0.5 K/mm3 (0.0-0.4); Eosinophils % 7.2 % (0.1-12.0); Hematocrit 29.1 % (37.0-47.0); Hemoglobin 9.5 g/dL (12.2-16.2); Lymphocytes # 1.2 K/mm3 (0.7-4.5); Lymphocytes % 17.6 % (10-50); Mean Corpuscular HGB Conc 32.7 g/dL (31.8-35.4); Mean Corpuscular Hemoglobin 29.3 pg (27.0-31.2); Mean Corpuscular Volume 89.6 fl (81-99); Mean Platelet Volume 7.5 fl (7.4-10.4); Monocytes # 0.3 K/mm3 (0.1-1.0); Monocytes % 4.9 % (1.7-9.3); Neutrophils # 4.8 K/mm3 (1.8-7.8); Platelet Count 219 K/mm3 (142-424); Red Blood Count 3.25 M/mm3 (4.20-5.40); Red Cell Distribution Width 14.3 % (11.5-17.5); White Blood Count 6.8 K/mm3 (4.8-10.8)
[2021-12-20 08:22] LABS: Chloride 107 mmol/L (98-107); Sodium 137 mmol/L (136-145)
[2021-12-20 08:25] LABS: Blood Urea Nitrogen 9 mg/dl (7-17); Carbon Dioxide 29 mmol/L (22.0-30.0); Creatinine Clearance Estimated 70 mL/min (50-200); Estimated Glomerular Filt Rate 83 ml/min (>60); GFR (African American) 100 ML/MIN (>60)
[2021-12-20 08:26] LABS: Calcium 7.3 mg/dl (8.4-10.2); Glucose 82 mg/dl (74-100)
--- NOTE | 2021-12-20 09:03 | HMH.DCSUM ---
General - General Admission date:: 12/18/21 Discharge date: 12/20/21 HPI HPI: 71-year-old white female with end-stage emphysema, prednisone and oxygen requiring, who last week was admitted to [facility] with back pain and chest pain, evaluation revealed non-STEMI and she underwent heart catheterization which revealed evidence of coronary disease with 1 stent placed and resulting depressed ejection fraction at 35%. She did well with this procedure and was discharged home with diuretics, beta-alina and Entresto. Unfortunately, she has become extremely weak and tired at home and her blood pressures been in the 80s. We counseled her to stop the Entresto and diuretics and yesterday she was given 1 L of IV fluid as an outpatient which she said helped her for about 2 hours. She began feeling poorly again last night, short of air, some more back pain and dyspnea and came to the emergency department where she was found to be hypotensive, weak and unable to stand on her own power. She was admitted to hospital for further diagnostic testing, IV fluids and reassessment of her cardio and pulmonary status. Hospital Course Hospital Course: Patient was admitted. Placed on IV fluids and Entresto and diuretics were held because of her hypotension. She was found to have serologic evidence of influenza A, not surprising because her was hospitalized for influenza A last week. She was placed on Tamiflu and felt better over the next 24 to 48 hours. Regards to her COPD her oxygen and nebs were continued. She recovered slowly but yesterday continued to have vomiting and a lot of issues with poor p.o. intake. This morning she is better, eating breakfast. Able to get up and move around the room and go to the bedside commode on her own. Plan will be to send her home with prescription for bedside commode, Tamiflu, Phenergan for nausea and resumption of her Entresto but holding her diuretics until I see her in the office to examine her volume status once more. She is significantly immobile, has severe breathlessness and ataxia and as a result based on my [id number] examination today qualifies for home health because of the symptoms above that are related influenza, CHF and COPD. Objective Vital signs: Temp Pulse Resp BP Pulse Ox 98 F 73 22 164/75 H 97 12/20/21 04:00 12/20/21 04:00 12/20/21 04:00 12/20/21 04:00 12/20/21 04:00 mild distress, chronically ill appearing - *Routine HEENT Exam Head: Present: normocephalic Eye: Present: EOMI, PERRL ENT: Present: mucous membranes moist - *Routine Neck Exam Present: supple - *Routine Respiratory Exam Present: rhonchi, distant breath sounds - *Routine Cardiovascular Exam Present: RRR, murmur - *Routine Abdominal Exam Present: soft, normoactive bowel sounds. Absent: tenderness - *Routine Extremities Exam Absent: cyanosis, clubbing, edema - *Routine Skin Exam Present: warm, ecchymosis. Absent: rash Comments: Multiple ecchymosis and damage from long-term cigarette use - Detailed Eye Exam Eyelids: Bilateral normal inspection Results Labs on day of discharge: Labs from last 24 hours 12/20/21 12/20/21 12/19/21 07:50 07:50 05:53 WBC 6.8 RBC 3.25 L Hgb 9.5 L 9.4 L D Hct 29.1 L MCV 89.6 MCH 29.3 MCHC 32.7 RDW 14.3 Plt Count 219 MPV 7.5 Neut % (Auto) 70.0 Lymph % (Auto) 17.6 [place] % (Auto) 4.9 Eos % (Auto) 7.2 Baso % (Auto) 0.3 Neut # (Auto) 4.8 Lymph # (Auto) 1.2 [place] # (Auto) 0.3 Eos # (Auto) 0.5 H Baso # (Auto) 0.0 Sodium 137 Potassium 4.0 Chloride 107 Carbon Dioxide 29 Anion Gap 5.0 BUN 9 D Creatinine 0.70 D Estimated Creat Clear 70 Estimated GFR 83 Est GFR ( Amer) 100 D Glucose 82 Calcium 7.3 L DS: Diagnosis - Discharge Diagnosis (1) Influenza A Status: Acute (2) Hypotension Status: Acute
--- NOTE | 2021-12-20 09:21 | SW/DCPLANNER ---
Addendum entered by Martina Mae 12/20/21 13:40: Patient information has been faxed to Tami [facility]eroa/ [facility]. Addendum entered by Martina Mae 12/20/21 10:48: Lenore [facility]/ [facility] has stated that services will begin Friday for this patient. Original Note: I have received an order for home health services for this patient. Patient info/order has been faxed to [facility]. I will follow up with [facility] once information is reviewed.
--- NOTE | 2021-12-20 09:40 | HMH.PHAINT ---
Discharge counseling complete. Informed pt of new medications, purpose, how to take, and possible side effects. Informed pt of medications to stop taking. Pt understood and had no questions or concerns
--- NOTE | 2021-12-20 10:03 | CARE MANAGER ---
Patient will need BSC due to distance to restroom in home. MARCO ANTONIO Crow
[2021-12-20 12:19] VITALS: PULSE 82; PULSE 86; O2SAT 94
[2021-12-20 14:22] VITALS: BP 156/76; BP 164/68; PULSE 82; PULSE 85; RESP 24; RESP 30; O2SAT 95; O2SAT 98
[2021-12-20 14:23] VITALS: BP 172/76; PULSE 88; RESP 36; O2SAT 92
--- NOTE | 2021-12-20 14:33 | PC.NURSE ---
THIS AFTERNOON PT WAS EXPRESSING CONCERNS ABOUT GOING HOME. PT STATED SHE IS SOA AND NAUSEATED WHEN GETTING UP TO THE BSC. O2 SATURATION MAINTAINS 90-95% ON 2.5 L NC WHEN GETTING OOB. PT WAS MEDICATED PER MAR FOR ANXIETY. ORTHOSTATIC BP'S WERE TAKEN AND WERE ALL STABLE. PCP STATED PT IS OKAY TO BE DISCHARGED. PT WILL HAVE HOME HEALTH AT HOME AND IS ALREADY ON OXYGEN AT HOME.
== END 2021-12-20 14:49 | disposition home health service (06) ==
PROVIDERS: Admitting Provider Internal Medicine Adolescent Medicine; PCP Internal Medicine Adolescent Medicine; Visit Provider Internal Medicine Adolescent Medicine
DX: J10.1 Influenza due to other identified influenza virus with other respiratory manifestations (principal); Z79.02 Long term (current) use of antithrombotics/antiplatelets; Z79.899 Other long term (current) drug therapy; I21.4 Non-ST elevation (NSTEMI) myocardial infarction; Z95.5 Presence of coronary angioplasty implant and graft; I50.21 Acute systolic (congestive) heart failure; I65.29 Occlusion and stenosis of unspecified carotid artery; Z86.718 Personal history of other venous thrombosis and embolism; K21.9 Gastro-esophageal reflux disease without esophagitis; F17.210 Nicotine dependence, cigarettes, uncomplicated; M19.90 Unspecified osteoarthritis, unspecified site; I11.0 Hypertensive heart disease with heart failure; J44.1 Chronic obstructive pulmonary disease with (acute) exacerbation; I95.9 Hypotension, unspecified; Z20.822 Contact with and (suspected) exposure to COVID-19
CPT/HCPCS: G0378; G0379; 36415; 71045; 80048; 80053; 83605; 83735; 85025; 87040; 93308; 94640; 94760; C9803; U0003; U0005

== ENCOUNTER 2022-01-10 12:06 | Day surgery (SDC) | payer MEDICARE, OTHER, SELFPAY ==
[2022-01-10] VITALS (9 sets, daily range): BP systolic 105–148; BP diastolic 44–73; PULSE 57–72; RESP 15–20; TEMP 36.6; O2SAT 93–99; BMI 26.2
--- NOTE | 2022-01-10 | IR_ITS ---
APPROVED REPORT Patient Location: Outpatient Manuscripts Archivist: JANNA Mcelroy RT (R) PROCEDURES Left heart catheterization Left ventriculogram Selective coronary angiogram INDICATION Known coronary disease, Unstable angina, Dynamic EKG abnormalities, Informed consent was obtained prior to the procedure. COMPLICATIONS None Estimated Blood Loss: Less than 10 mls TECHNIQUE One percent lidocaine used to anesthetize the right anterior aspect of the wrist. The right radial artery was accessed via the Seldinger technique. A 6 Macedonian sheath was placed in the right radial artery. 2.5 mg of verapamil, 800 mcg of nitroglycerin, 1mg Lidocaine and 5000 U Heparin were given through the arterial sheath. The papa catheter was also used to perform left heart catheterization, left ventriculogram and selective coronary angiogram. At the end of the procedure the sheath was removed good hemostasis was achieved using Traclet band, patient was transferred to the postop holding area in stable condition. ANGIOGRAPHIC RESULTS The left main artery Has a stent in the proximal stent and extends throughout its entire course into the proximal LAD. The stent is widely patent free of in-stent restenosis with excellent proximal distal transitioning The left anterior descending artery Is widely patent within the ostial proximal stent. There is excellent stent transitioning. There are mid vessel 20% stenoses. The large diagonal artery is widely patent The circumflex artery Nondominant with mild nonflow limiting atheromatous plaque nothing greater than 20% The right coronary artery Is a large dominant vessel and has a stent in the ostial segment which is widely patent and provides excellent reflux back into the right coronary cusp. The stent transitions nicely into the [place] vessel where there are 20 and 30% proximal and mid vessel stenoses. Distally a large posterior descending artery and posterior lateral branch are widely patent The GAY ventriculogram reveals Hyperdynamic 80% The left ventricular end-diastolic pressure 30 mmHg IMPRESSION Widely patent coronary arteries as described above Hyperdynamic ventricle consistent with diastolic dysfunction and hypertensive heart disease Elevated LVEDP consistent with diastolic dysfunction PLAN 1. Continue standard therapy for ischemic heart disease 2. Treatment of diastolic dysfunction which is the etiology for patient's chest pain Electronically signed by : Gordo Salguero MD 01/10/2022 13:01:11
[2022-01-10 10:53] LABS: Basophils % 0.2 % (0.1-2.0); Eosinophils % 0.1 % (0.1-12.0); Hematocrit 36.1 % (37.0-47.0); Hemoglobin 11.3 g/dL (12.2-16.2); Lymphocytes # 1.2 K/mm3 (0.7-4.5); Lymphocytes % 8.6 % (10-50); Mean Corpuscular HGB Conc 31.4 g/dL (31.8-35.4); Mean Corpuscular Hemoglobin 28.7 pg (27.0-31.2); Mean Corpuscular Volume 91.4 fl (81-99); Mean Platelet Volume 8.7 fl (7.4-10.4); Monocytes # 0.3 K/mm3 (0.1-1.0); Monocytes % 2.5 % (1.7-9.3); Neutrophils # 11.9 K/mm3 (1.8-7.8); Neutrophils % 88.7 % (37.0-80.0); Platelet Count 403 K/mm3 (142-424); Red Blood Count 3.94 M/mm3 (4.20-5.40); White Blood Count 13.4 K/mm3 (4.8-10.8)
[2022-01-10 10:57] LABS: MANUAL DIFFERENTIAL MANUAL DIFFERENTIAL (MANUAL DIFF)
[2022-01-10 11:02] LABS: Alanine Aminotransferase 24 U/L (12-78); Albumin Level 4.2 g/dl (3.5-5.0); Albumin/Globulin Ratio 1.6 (1.1-1.8); Alkaline Phosphatase 116 U/L (38-126); Anion Gap 11.3 mEq/L (5-15); Aspartate Amino Transferase 33 U/L (14-36); Bilirubin,Total 0.4 mg/dl (0.2-1.3); Blood Urea Nitrogen 20 mg/dl (7-17); Calcium 8.9 mg/dl (8.4-10.2); Carbon Dioxide 32 mmol/L (22.0-30.0); Chloride 101 mmol/L (98-107); Estimated Glomerular Filt Rate 55 ml/min (>60); GFR (African American) 67 ML/MIN (>60); Globulin 2.6 g/dL (1.3-3.2); Glucose 111 mg/dl (74-100); Potassium 4.3 mmoL/L (3.5-5.1); Sodium 140 mmol/L (136-145); Total Protein,Serum 6.8 g/dl (6.3-8.2)
[2022-01-10 11:22] LABS: Lymphocytes % 11 % (10-50); Monocytes % 2 % (2-9); Neutrophils % 87 % (42-76); Total Cells Counted 100
[2022-01-10 11:23] LABS: Platelet Estimate Normal
[2022-01-10 11:59] LABS: Coronavirus 19, PCR Not Detected (NotDetected); Influenza A, PCR Not Detected (NotDetected); Influenza B, PCR Not Detected (NotDetected)
--- NOTE | 2022-01-10 15:49 | XR_ITS ---
FINAL REPORT CLINICAL HISTORY: cp, post heart cath chest pain per patient. former smoker. COMPARISON: December 18, 2021 FINDINGS: Two views of the chest were obtained. The heart size and pulmonary vascularity are within normal limits. There is a calcified right paratracheal lymph node. There are calcified granulomas in the right upper lobe. The lungs are hyperinflated consistent with COPD. No acute pulmonary abnormality is identified. There is no pneumothorax. The bony thorax is intact. IMPRESSION: No acute cardiopulmonary process. Reviewed, Interpreted and Dictated by Yoshi Gutierrez III, MD Transcribed by Petr Funez Authenticated by Yoshi Gutierrez III, MD on 01/10/2022 04:30:40 PM [facility]
== END 2022-01-10 15:45 | disposition home or self-care (01) ==
LOC: CATHLAB 12:06
PROVIDERS: Internal Medicine Adolescent Medicine; Physician Assistant; Visit Provider Internal Medicine
DX: E78.2 Mixed hyperlipidemia (principal); I10 Essential (primary) hypertension; I25.110 Atherosclerotic heart disease of native coronary artery with unstable angina pectoris; I65.23 Occlusion and stenosis of bilateral carotid arteries; R06.02 Shortness of breath; Z95.5 Presence of coronary angioplasty implant and graft; R06.00 Dyspnea, unspecified; E78.5 Hyperlipidemia, unspecified; Z79.899 Other long term (current) drug therapy; Z79.01 Long term (current) use of anticoagulants; Z20.822 Contact with and (suspected) exposure to COVID-19
CPT/HCPCS: 36415; 71046; 80053; 85007; 85025; 93458; 99152; C1725; C1769; C9803; J1644; Q9967; U0003; U0005

== ENCOUNTER → 2022-01-24 10:54 | Outpatient (CLI) | payer MEDICARE, OTHER, SELFPAY ==
--- NOTE | 2022-01-24 10:55 | CA_ITS ---
FINAL REPORT TECHNIQUE: Color Doppler, duplex Doppler and mead scale sonography of the bilateral neck arterial vasculature was performed. Velocities were measured in the carotid arteries. Stenosis evaluation based on the validated velocity criteria. CLINICAL HISTORY: DIRK, CAD, Cardiac arrythmia FINDINGS: The peak systolic velocity of the right common carotid artery is 70 cm/s. The peak systolic velocity of the right internal carotid artery is 161 cm/s and end diastolic velocity 36 cm/s. The ICA/CCA ratio is 2.8. A mild to moderate amount of plaque is present. The right external carotid artery is patent. The right vertebral artery is patent with antegrade flow. The peak systolic velocity of the left common carotid artery is 92 cm/s. The peak systolic velocity of the left internal carotid artery is 222 cm/s and end diastolic velocity 33 cm/s. The ICA/CCA ratio is 3.7. A mild to moderate amount of plaque is present. The left external carotid artery is patent.The left vertebral artery is patent with antegrade flow. IMPRESSION: Less than 50% right carotid stenosis. 50-69% left carotid stenosis. Bilateral patent vertebral arteries with antegrade flow. If indicated, CTA or MRA could further evaluate. Reviewed, Interpreted and Dictated by Yoshi Gutierrez III, MD Transcribed by Harini Fragoso Authenticated by Yoshi Gutierrez III, MD on 01/24/2022 01:48:[address] [facility]
== END ==
PROVIDERS: PCP Internal Medicine; Visit Provider Physician Assistant
DX: E78.2 Mixed hyperlipidemia (principal); I25.118 Atherosclerotic heart disease of native coronary artery with other forms of angina pectoris; I65.23 Occlusion and stenosis of bilateral carotid arteries
CPT/HCPCS: 93880

== ENCOUNTER → 2022-02-08 07:43 | Outpatient (CLI) | payer MEDICARE, OTHER, SELFPAY ==
--- NOTE | 2022-02-08 07:44 | FL_ITS ---
FINAL REPORT CLINICAL HISTORY: nausea, vomiting, chest burning, chest pain, 1.05 fluoro time FINDINGS: ESOPHAGRAM HISTORY: Chest burning, nausea and vomiting. TECHNIQUE: Patient ingested thick and thin barium contrast. Effervescent crystals were also administered. Spot films were performed. A total of 41 images were saved. FINDINGS: There is mild persistent narrowing of the distal esophagus, immediately above the GE junction. This is concerning for stricture. 13 mm barium tablet does not pass beyond this during the examination. There is no gastroesophageal reflux demonstrated. Motility appears normal. Incidental note is made of a densely calcified subcarinal lymph node. FLUOROSCOPY TIME: 1 minute 5 seconds IMPRESSION: Mild persistent narrowing of the distal esophagus, immediately above the GE junction. This is concerning for stricture. Recommend endoscopic correlation. 13 mm barium tablet does not pass beyond this during the exam. Reviewed, Interpreted and Dictated by Lopez Amaya MD Transcribed by Alisson Root PA-C Authenticated by Lopez Amaya MD on 02/08/2022 11:17:19 AM [facility]
== END ==
PROVIDERS: PCP Internal Medicine Adolescent Medicine; Visit Provider Internal Medicine
DX: R07.9 Chest pain, unspecified (principal)
CPT/HCPCS: 74220

== ENCOUNTER → 2022-03-06 11:53 | Outpatient (CLI) | payer MEDICARE, OTHER, SELFPAY | PROVIDERS: Visit Provider Surgery | DX: Z01.812 Encounter for preprocedural laboratory examination (principal); Z11.52 Encounter for screening for COVID-19; Z13.810 Encounter for screening for upper gastrointestinal disorder; R11.2 Nausea with vomiting, unspecified | CPT/HCPCS: C9803; U0003; U0005 ==

== ENCOUNTER 2022-03-08 13:19 | Day surgery (SDC) | payer MEDICARE, OTHER, SELFPAY ==
[2022-03-06 13:11] VITALS: BMI 26.6
[2022-03-08 13:43] VITALS: BP 114/42; PULSE 55; RESP 18; TEMP 36.7; O2SAT 99
--- NOTE | 2022-03-08 14:20 | P.PN_ITS ---
[facility] Anesthesia Checklist - Patient Identification Patient Identification: Arm Band - Structural Data Admitted From: Home Planned Operative Procedure/s: EGD Consent for Planned Operative Procedure(s) Verified: Yes - NPO Status Verified Time NPO: 00:00 - Additional verifications Anesthesia Reactions: No - Airway Assessment C-Spine Mobility Assessed: Yes TMJ Mobility Assessed: Yes Dentition: Edentulous - Neurological Assessment Level of Consciousness: Awake Hx Seizures: No Numbness or tingling in extremities: No - Anesthesia Plan Anesthesia Risk discussed: Yes Anesthesia Plan: Verified ASA Class: III Anesthesia Type: MAC [facility] History I have reviewed the patient's past medical history: Yes Medical History: Reports:: Carotid Stenosis, Congestive Heart Failure, Chronic Obstructive Pulmonary Disease (COPD), Coronary Artery Disease, Deep Vein Thrombosis, Gastroesophageal Reflux Disease(GERD), Hyperlipidemia, Hypertension, Lung Disease Denies:: Cancer, Diabetes Mellitus Type 1, Diabetes Mellitus Type 2, Internal Pacemaker, MRSA, Seizures *Have you ever received a pneumonia vaccine?: Yes *Have you received a flu vaccine this season?: Yes Other Medical History: Reports: Anemia, Arthritis, Cataracts, Fibromyalgia, Sinus Problems Anesthesia experience/problems:: None Laterality Cases: Bilateral: Cataract Other Surgeries: Yes: Angiogram, Cardiac Catheterization, Cholecystectomy, Colonoscopy, Coronary Stent, EGD, Hysterectomy-Total, Sinus Surgery. No: Pacemaker Amputation: No Fractures: No - *Social History Last grade of school completed: Some college Smoking Status: Former smoker Tobacco Type: cigarettes # Packs/Day (cigarettes): 1 #Yrs smoked (if former smoker): 53 Alcohol Intake: never Alcohol Intake Frequency:: a few times a month Substance Use Type: denies use *Occupational Status:: retired Housing: house Household Members: spouse *Travel in the last 8 weeks: None Family Hx:: Cancer, Heart Attack, Hyperlipidemia, Hypertension
[2022-03-08 14:54] VITALS: O2SAT 99
--- NOTE | 2022-03-08 15:09 | P.PCN_ITS ---
- Procedure: Date: 03/08/22 Patient Date of :: 1950 Procedure Performed:: Esophagogastroduodenoscopy with biopsies and dilatation at the gastroesophageal junction to 20 mm Indications:: Patient is a 71-year-old female from [place] with history of COPD (oxygen dependent), tobacco dependence, chronic kidney disease, non-STEMI, congestive heart failure, coronary artery disease, she has numerous stents and is on Plavix, syncope, chest pain, carotid artery stenosis, hypertension. She is on multiple medications including Plavix, prednisone, Carafate, omeprazole. SHe had previously worked in Dr. Ephraim Lombardo's office. She is referred by Dr. Salguero's office for upper endoscopy. She gives a history of postprandial chest burning and vomiting. She did undergo upper endoscopy on 04/09/[address] Daniel Corrales and he dilated cricopharyngeal spasm to 20 mm. She had a 8mm duodenal adenomatous polyp, cricopharyngeal spasm, nonerosive GERD with moderate esophageal dysmotility, very small, 1 to 2 cm hiatal hernia, bile reflux linear reactive gastropathy. She did undergo recent barium swallow. This reveals mild persistent narrowing of the distal esophagus, immediately above the GE junction. This is concerning for stricture. Recommend endoscopic correlation. 13 mm barium tablet does not pass beyond this during exam. Performing Provider:: Yoshi Márquez MD Referring Provider:: MD Ephraim Fang MD Sedation:: MAC sedation Procedure:: Patient was taken to endoscopy procedure. She was positioned in lateral decub itus position. Adequate intravenous sedation was achieved with anesthesia titration of propofol. This endoscope was inserted via the oropharynx. Esophagus was cannulated. There was mild spasm at the cricopharyngeal area. Overall esophagus appeared unremarkable. Gastroesophageal junction was encountered at approximately 38 cm from the incisors. There appeared to be some minor narrowing mostly consistent with spasm of the gastroesophageal junction and dysmotility. Stomach was cannulated and insufflated. Retroflexion revealed a small 2 to 3 mm sliding hiatal hernia. There was some diffuse nonerosive linear gastropathy. Gastric antral mucosal biopsies obtained for CLOtest for H. pylori. Pylorus was traversed. Duodenal bulb and duodenal sweep appeared unremarkable. Gastric mucosal biopsy was obtained for histopathologic analysis. She did have a few gastric polyps consistent with fundic gland polyps. This was biopsied. Endoscope was withdrawn into the distal esophagus. A couple biopsies were obtained at the gastroesophageal junction. Gastroesophageal junction was dilated sequentially using the elation balloon dilator to 18 mm, 19 mm, then 20 mm sequentially. Stomach was desufflated and the scope was withdrawn. Findings:: Cricopharyngeal spasm Esophageal dysmotility Spasm with mild narrowing at the gastroesophageal junction Small 2 to 3 mm sliding hiatal hernia Gastric fundic gland polyps Nonerosive linear gastropathy Recommendations:: Follow-up on the histopathologic analysis and biopsies. Much of her symp tomatology may be due to esophageal dysmotility however. Complications:: None immediately apparent Estimated blood obtained (mL): 2
[2022-03-08 15:10] VITALS: BP 102/43; PULSE 52; RESP 18; TEMP 36.1; O2SAT 100
[2022-03-08 15:20] VITALS: BP 106/42; PULSE 48; RESP 18; TEMP 36.1; O2SAT 96
[2022-03-08 15:30] VITALS: BP 120/71; PULSE 65; RESP 18; TEMP 36.1; O2SAT 97
== END 2022-03-08 15:30 | disposition home or self-care (01) ==
LOC: OUTP 13:20
PROVIDERS: PCP Internal Medicine Adolescent Medicine; Visit Provider Surgery
PROC: 0DJ08ZZ Inspection of Upper Intestinal Tract, Via Natural or Artificial Opening Endoscopic (ICD-10-PCS; CPT 43235; principal; 2022-03-08 14:30)
DX: K22.2 Esophageal obstruction (principal); K22.89 Other specified disease of esophagus; K44.9 Diaphragmatic hernia without obstruction or gangrene; K31.7 Polyp of stomach and duodenum; K31.9 Disease of stomach and duodenum, unspecified; Z87.19 Personal history of other diseases of the digestive system; J44.9 Chronic obstructive pulmonary disease, unspecified; I25.10 Atherosclerotic heart disease of native coronary artery without angina pectoris; K21.9 Gastro-esophageal reflux disease without esophagitis; E78.5 Hyperlipidemia, unspecified; I10 Essential (primary) hypertension; D64.9 Anemia, unspecified
CPT/HCPCS: 43239; 43249; 87339; 88305; C1726

== ENCOUNTER 2022-05-09 13:33 | Outpatient (CLI) | payer MEDICARE, OTHER, SELFPAY ==
[2022-05-09 13:42] VITALS: BMI 27.3
--- NOTE | 2022-05-09 13:43 | XR_ITS ---
FINAL REPORT CLINICAL HISTORY: shortness of breath COMPARISON: January 10, 2022 FINDINGS: The heart size is normal. There is a calcified right paratracheal lymph node. There are advanced changes of centrilobular emphysema in the upper lobes. There is chronic scarring in the lung bases. There are no pleural effusions. There is no pneumothorax. There is no osseous abnormality. IMPRESSION: No acute cardiopulmonary process Reviewed, Interpreted and Dictated by Lopez Amaya MD Transcribed by Petr Funez Authenticated and [facility]
[2022-05-09 14:00] VITALS: BP 117/51; PULSE 70; RESP 20; TEMP 36.6; O2SAT 97
[2022-05-09 14:03] LABS: Coronavirus 19, PCR Not Detected (NotDetected); Influenza A, PCR Not Detected (NotDetected); Influenza B, PCR Not Detected (NotDetected)
[2022-05-09 14:09] LABS: Basophils # 0.1 K/mm3 (0-0.2); Basophils % 0.7 % (0.1-2.0); Eosinophils # 0.3 K/mm3 (0.0-0.4); Eosinophils % 3.4 % (0.1-12.0); Hematocrit 34.4 % (37.0-47.0); Hemoglobin 11.3 g/dL (12.2-16.2); Lymphocytes # 2.3 K/mm3 (0.7-4.5); Lymphocytes % 23.2 % (10-50); Mean Corpuscular HGB Conc 32.9 g/dL (31.8-35.4); Mean Corpuscular Hemoglobin 30.4 pg (27.0-31.2); Mean Corpuscular Volume 92.4 fl (81-99); Mean Platelet Volume 8.5 fl (7.4-10.4); Monocytes # 0.6 K/mm3 (0.1-1.0); Monocytes % 6.4 % (1.7-9.3); Neutrophils # 6.5 K/mm3 (1.8-7.8); Neutrophils % 66.4 % (37.0-80.0); Platelet Count 299 K/mm3 (142-424); Red Blood Count 3.72 M/mm3 (4.20-5.40); Red Cell Distribution Width 14.5 % (11.5-17.5); White Blood Count 9.9 K/mm3 (4.8-10.8)
[2022-05-09 14:14] LABS: Alanine Aminotransferase 23 U/L (12-78); Albumin Level 3.7 g/dl (3.5-5.0); Albumin/Globulin Ratio 1.5 (1.1-1.8); Alkaline Phosphatase 112 U/L (38-126); Anion Gap 7.8 mEq/L (5-15); Aspartate Amino Transferase 24 U/L (14-36); Bilirubin,Total 0.3 mg/dl (0.2-1.3); Blood Urea Nitrogen 15 mg/dl (7-17); Calcium 8.8 mg/dl (8.4-10.2); Carbon Dioxide 35 mmol/L (22.0-30.0); Chloride 97 mmol/L (98-107); Creatinine Clearance Estimated 59 mL/min (50-200); Estimated Glomerular Filt Rate 45 ml/min (>60); GFR (African American) 54 ML/MIN (>60); Globulin 2.5 g/dL (1.3-3.2); Glucose 96 mg/dl (74-100); Magnesium 1.8 mg/dl (1.6-2.3); Potassium 3.8 mmoL/L (3.5-5.1); Sodium 136 mmol/L (136-145); Total Protein,Serum 6.2 g/dl (6.3-8.2)
[2022-05-09 15:00] VITALS: BP 140/52; PULSE 67; RESP 20; O2SAT 97
== END 2022-05-09 15:00 | disposition home or self-care (01) ==
LOC: INF 13:34
PROVIDERS: PCP Internal Medicine Adolescent Medicine; Visit Provider Internal Medicine Adolescent Medicine
DX: Z20.822 Contact with and (suspected) exposure to COVID-19 (principal); J44.9 Chronic obstructive pulmonary disease, unspecified; E86.0 Dehydration
CPT/HCPCS: 71045; 80053; 83735; 85025; 96360; C9803; U0003; U0005

== ENCOUNTER → 2022-05-23 15:18 | Outpatient (CLI) | payer MEDICARE, OTHER, SELFPAY ==
[2022-05-23 15:37] LABS: ABG Base Excess 3.2 mmol/L (-2.4-2.3); ABG Oxygen Saturation 96 % (90-100); ABG PCO2 38.5 mmhg (35.0-45.0); ABG PH 7.46 mmol/L (7.35-7.45); ABG TCO2 28.1 mmhg (23-27)
[2022-05-23 15:38] LABS: Allen's Test Non Applicable; Oxygen 1 %; Source Left Brachial
== END ==
PROVIDERS: PCP Internal Medicine Adolescent Medicine; Visit Provider Internal Medicine Pulmonary Disease
DX: R06.02 Shortness of breath (principal)
CPT/HCPCS: 82803

== ENCOUNTER → 2022-06-04 11:08 | Outpatient (CLI) | payer MEDICARE, OTHER, SELFPAY | PROVIDERS: PCP Internal Medicine Adolescent Medicine; Visit Provider Internal Medicine Pulmonary Disease | DX: J44.9 Chronic obstructive pulmonary disease, unspecified (principal) | CPT/HCPCS: 94762 ==

== ENCOUNTER → 2022-06-25 11:23 | Outpatient (CLI) | payer MEDICARE, OTHER, SELFPAY ==
[2022-06-25 11:28] LABS: MANUAL DIFFERENTIAL MANUAL DIFFERENTIAL (MANUAL DIFF)
--- NOTE | 2022-06-25 11:37 | XR_ITS ---
FINAL REPORT CLINICAL HISTORY: chest pain, sob COMPARISON: 05/09/2022 FINDINGS: Two views of the chest were obtained. The heart size and pulmonary vascularity are within normal limits. The mediastinum is normal. No acute pulmonary abnormality is identified. There is no pneumothorax. The bony thorax is intact. IMPRESSION: No active cardiopulmonary disease. Reviewed, Interpreted and Dictated by Yoshi Gutierrez III, MD Transcribed by Carrie Alexander Authenticated and [facility]
[2022-06-25 13:06] LABS: Basophils # 0.1 K/mm3 (0-0.2); Basophils % 0.9 % (0.1-2.0); Eosinophils # 0.3 K/mm3 (0.0-0.4); Eosinophils % 3.2 % (0.1-12.0); Hematocrit 34.6 % (37.0-47.0); Hemoglobin 10.7 g/dL (12.2-16.2); Lymphocytes # 2.6 K/mm3 (0.7-4.5); Mean Corpuscular HGB Conc 30.8 g/dL (31.8-35.4); Mean Corpuscular Hemoglobin 29.5 pg (27.0-31.2); Mean Corpuscular Volume 95.6 fl (81-99); Mean Platelet Volume 7.7 fl (7.4-10.4); Monocytes # 0.6 K/mm3 (0.1-1.0); Monocytes % 6.1 % (1.7-9.3); Neutrophils # 5.7 K/mm3 (1.8-7.8); Neutrophils % 61.8 % (37.0-80.0); Platelet Count 273 K/mm3 (142-424); Red Blood Count 3.62 M/mm3 (4.20-5.40); Red Cell Distribution Width 13.4 % (11.5-17.5); White Blood Count 9.3 K/mm3 (4.8-10.8)
[2022-06-25 13:49] LABS: Alanine Aminotransferase 22 U/L (12-78); Alkaline Phosphatase 109 U/L (38-126); Anion Gap 8.7 mEq/L (5-15); Aspartate Amino Transferase 30 U/L (14-36); Bilirubin,Direct 0.1 mg/dl (0.0-0.4); Bilirubin,Indirect 0.2 mg/dL (0.0-0.9); Bilirubin,Total 0.3 mg/dl (0.2-1.3); Bilirubin,Unconjugated 0.2 mg/dL (0.0-1.1); Blood Urea Nitrogen 23 mg/dl (7-17); Calcium 9.5 mg/dl (8.4-10.2); Carbon Dioxide 38 mmol/L (22.0-30.0); Chloride 97 mmol/L (98-107); Chol/HDL Ratio 2.9 (1-3.5); Cholesterol 163 mg/dl (140-200); Estimated Glomerular Filt Rate 37 ml/min (>60); GFR (African American) 45 ML/MIN (>60); Glucose 85 mg/dl (74-100); HDL Cholesterol 56 mg/dl (40-60); Potassium 4.7 mmoL/L (3.5-5.1); Sodium 139 mmol/L (136-145); Total Protein,Serum 6.2 g/dl (6.3-8.2); Triglycerides 178 mg/dl (30-150); VLDL Cholesterol 36 mg/dL (0-40)
[2022-06-25 14:03] LABS: Troponin I < 0.01 ng/ml (0.00-0.034)
[2022-06-25 14:20] LABS: Thyroid Stimulating Hormone 0.55 uIU/mL (0.465-4.68)
[2022-06-25 17:22] LABS: Eosinophils % 4 % (0-3); Lymphocytes % 32 % (10-50); Monocytes % 1 % (2-9); Neutrophils % 63 % (42-76); Total Cells Counted 100
[2022-06-25 17:24] LABS: Acanthocytes 1+; Platelet Estimate Normal
[2022-06-27 08:59] LABS: Direct LDL Cholesterol 72 mg/dL (100-129)
== END ==
PROVIDERS: PCP Internal Medicine Adolescent Medicine; Visit Provider Nurse Practitioner Family
DX: R06.00 Dyspnea, unspecified; R06.01 Orthopnea; R06.02 Shortness of breath; R07.89 Other chest pain; I25.118 Atherosclerotic heart disease of native coronary artery with other forms of angina pectoris; I11.0 Hypertensive heart disease with heart failure; I50.21 Acute systolic (congestive) heart failure; E78.2 Mixed hyperlipidemia; I65.23 Occlusion and stenosis of bilateral carotid arteries; F17.200 Nicotine dependence, unspecified, uncomplicated; J44.1 Chronic obstructive pulmonary disease with (acute) exacerbation; R94.31 Abnormal electrocardiogram [ECG] [EKG]; Z95.5 Presence of coronary angioplasty implant and graft
CPT/HCPCS: 36415; 71046; 80048; 80061; 80076; 84439; 84443; 84484; 85007; 85014; 85018; 85048; 85049

== ENCOUNTER → 2022-06-28 13:48 | Outpatient (CLI) | payer MEDICARE, OTHER, SELFPAY ==
--- NOTE | 2022-06-28 13:49 | CA_ITS ---
APPROVED REPORT EXAM: Comprehensive 2D, Doppler, and color-flow Echocardiogram Periodontal Assistant: Elinor Garcia RT(R) Ht: 5 ft 9 in Wt: 185lbs BSA: 2.00 BP: 96/69 mmHg Indications: SOA, CP, COPD, ex smoker, HTN, hyperlipidemia, CM, CHF, abn EKG. Conclusion 1. Technically very poor limited study performed. Endocardial surfaces and valvular structures are very poorly visualized. 2. Probably preserved left ventricular systolic function. 3. Right ventricle is mildly enlarged with normal contractility 4. No significant pericardial effusion noted. Electronically signed by : Vinnie Rudd MD 06/30/2022 17:19:06
== END ==
PROVIDERS: PCP Internal Medicine Adolescent Medicine; Visit Provider Nurse Practitioner Family
DX: R06.02 Shortness of breath; R06.00 Dyspnea, unspecified; R06.01 Orthopnea; R07.89 Other chest pain; E78.2 Mixed hyperlipidemia; I25.118 Atherosclerotic heart disease of native coronary artery with other forms of angina pectoris; I11.0 Hypertensive heart disease with heart failure; I50.21 Acute systolic (congestive) heart failure; I65.23 Occlusion and stenosis of bilateral carotid arteries; J44.1 Chronic obstructive pulmonary disease with (acute) exacerbation; F17.200 Nicotine dependence, unspecified, uncomplicated; R94.31 Abnormal electrocardiogram [ECG] [EKG]; Z95.5 Presence of coronary angioplasty implant and graft
CPT/HCPCS: 93306

== ENCOUNTER 2022-07-02 14:13 | Observation (INO) | payer MEDICARE, OTHER, SELFPAY ==
[2022-07-02 14:19] VITALS: BMI 27.6
[2022-07-02 14:37] VITALS: BP 157/58; PULSE 71; RESP 18; TEMP 36.9; O2SAT 93
--- NOTE | 2022-07-02 15:23 | EXP.CARD.PN ---
Subjective Subjective Date: 07/02/22 Time: 15:23 Principal diagnosis: CHF Exam Data for Last 24 hours Vital signs and Labs for Last 24 Hours: Temp Pulse Resp BP Pulse Ox 98.5 F 71 18 157/58 H 93 L 07/02/22 14:37 07/02/22 14:37 07/02/22 14:37 07/02/22 14:37 07/02/22 14:37 I & O for Last 24 hours: Intake & Output 06/29/22 06/30/22 07/01/22 07/02/22 23:59 23:59 23:59 23:59 Intake Total 0 / 0 Output Total 0 / 0 Balance 0 / 0 Weight 187 lb 3 oz Progress Note: A&P Assessment and Plan Assessment and Plan for All Diagnoses:: Patient was seen in cardiology clinic today for a 1 week follow-up on coronary artery disease and CHF. Echo shows: 1.? Technically very poor limited study performed.? Endocardial surfaces and valvular structures are very poorly visualized. 2.? Probably preserved left ventricular systolic function. 3.? Right ventricle is mildly enlarged with normal contractility 4.? No significant pericardial effusion noted. Has had cp & pressure at rest 3-4 per day SOB all the time. she states she feels like she is smothering all of the time. she feels like she is going down hill and does not feel good. she thinks she has too much fluid on board and needs it taken off. States had fluid around heart Fatigue and no energy at all. CAD is likely stable. Medical management in 12/2021. 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 CHAS cx JUL 2019.CHAS in 01/2019. DAPT with ASA/Plavix.History of Left Main stenting. BP on low side, but acceptable. Not weighed today. Pt states at home her weight is up to 189 pounds. Diastolic dysfunction-stable. LDL goal is < 55. LDL is 72 (May 2022). Pt is on a statin.? Renal angiogram is normal. DIRK? is present. CNI- 03/2020- 50-69% bilateral ICAs.? COPD is moderate and stable. Hx of esophageal stretching. Tobacco user. Tobacco cessation advised. Cr 1.4 and stable. EKG is SR with old anterior infarct, age undetermined rate is 65 bpm. Pt feels no better with multiple med adjustments and increasing diuretics on an outpatient basis. pt states symptoms continue to worsen and this last week has been much worse. Will admit patient to the hospital for IV diuresis. Would like to try IV bumex for diuresis. RTC in 1-2 weeks post hospital visit.?? Will start the patient on IV Bumex in place of her oral Lasix. Will get a limited echo to try to evaluate her EF. Her echocardiogram from last week was a difficult study and her EF was not accurately estimated. Consider right cardiac catheterization tomorrow to evaluate her intracardial pressures given her progressive symptoms despite multiple medication adjustments and increasing her diuretics on an outpatient basis. Continue home medications.
--- NOTE | 2022-07-02 15:25 | XR_ITS ---
FINAL REPORT CLINICAL HISTORY: soa COMPARISON: 06/25/2022 FINDINGS: SINGLE-VIEW CHEST The heart size is normal. The mediastinum is normal. There is mild atelectasis or scar at the bases. There is no pneumothorax. IMPRESSION: Atelectasis or scar at the bases. Reviewed, Interpreted and Dictated by Yoshi Gutierrez III, MD Transcribed by Carrie Alexander Authenticated and [facility]
--- NOTE | 2022-07-02 15:25 | CA_ITS ---
APPROVED REPORT EXAM: Comprehensive 2D, Doppler, and color-flow Echocardiogram Digester Capper: Serena Hines, LITA, RVS Ht: 5 ft 9 in Wt: 187lbs BSA: 2.01 BP: 157/58 mmHg Indications: CHF<CAD, CM, COPD, SOB, HLD, HTN Echo Enhancing Agent Comments: Extremely limited windows as previously noted. 2D Dimensions IVSd 1.11 cm LVEF (Visual) 55.30 % PWd 0.92 cm LVDd 4.21 cm LVDs 3.01 cm Conclusion 1. Extremely limited and poor study, very poor visualization of endocardium. 2. Probably preserved left ventricular systolic function. 3. Right ventricle is mildly enlarged with normal contractility. 4. No significant pericardial effusion noted. 5. Valvular structures are very poorly visualized. Electronically signed by : Vinnie Rudd MD 07/02/2022 19:10:46
[2022-07-02 16:00] VITALS: PULSE 60
[2022-07-02 16:06] LABS: Basophils # 0.1 K/mm3 (0-0.2); Basophils % 0.7 % (0.1-2.0); Eosinophils # 0.3 K/mm3 (0.0-0.4); Eosinophils % 3.1 % (0.1-12.0); Hematocrit 31.7 % (37.0-47.0); Hemoglobin 10.3 g/dL (12.2-16.2); Lymphocytes # 2.6 K/mm3 (0.7-4.5); Lymphocytes % 26.4 % (10-50); Mean Corpuscular HGB Conc 32.6 g/dL (31.8-35.4); Mean Corpuscular Hemoglobin 30.9 pg (27.0-31.2); Mean Corpuscular Volume 94.8 fl (81-99); Mean Platelet Volume 8.2 fl (7.4-10.4); Monocytes # 0.6 K/mm3 (0.1-1.0); Monocytes % 6.3 % (1.7-9.3); Neutrophils # 6.1 K/mm3 (1.8-7.8); Neutrophils % 63.4 % (37.0-80.0); Platelet Count 312 K/mm3 (142-424); Red Blood Count 3.34 M/mm3 (4.20-5.40); Red Cell Distribution Width 13.9 % (11.5-17.5); White Blood Count 9.6 K/mm3 (4.8-10.8)
[2022-07-02 16:13] LABS: Anion Gap 7.5 mEq/L (5-15); Blood Urea Nitrogen 30 mg/dl (7-17); Calcium 8.9 mg/dl (8.4-10.2); Carbon Dioxide 37 mmol/L (22.0-30.0); Chloride 94 mmol/L (98-107); Creatinine Clearance Estimated 54 mL/min (50-200); Estimated Glomerular Filt Rate 40 ml/min (>60); GFR (African American) 49 ML/MIN (>60); Glucose 87 mg/dl (74-100); Potassium 4.5 mmoL/L (3.5-5.1); Sodium 134 mmol/L (136-145)
[2022-07-02 16:14] LABS: Alanine Aminotransferase 24 U/L (12-78); Alkaline Phosphatase 135 U/L (38-126); Aspartate Amino Transferase 30 U/L (14-36); Bilirubin,Direct 0.1 mg/dl (0.0-0.4); Bilirubin,Indirect 0.1 mg/dL (0.0-0.9); Bilirubin,Total 0.2 mg/dl (0.2-1.3); Bilirubin,Unconjugated 0.1 mg/dL (0.0-1.1); Total Protein,Serum 6.3 g/dl (6.3-8.2)
[2022-07-02 16:28] LABS: Troponin I < 0.01 ng/ml (0.00-0.034)
--- NOTE | 2022-07-02 17:54 | PC.NURSE ---
Patient admitted as direct admit. Patient stated she was having chest pain as she had over the past week at home. Plan to diurese, IV bumex given. Lung sound exhibit fine crackles at bases and diminished at top. VS stable, patient on 3LNC, baseline 2LNC.
--- NOTE | 2022-07-02 18:10 | EXP.HP ---
History of Present Illness *Admission Date: 07/02/22 *Reason for visit:: short of breath *History of present illness: Ms. Black is a 72-year-old female with multiple comorbidities including coronary artery disease, significant history of tobacco dependence (greater than [id number] history of smoking), oxygen dependent COPD, CHF, who has had worsening shortness of breath that has progressed over the past several weeks. She presented to cardiology clinic earlier today for close follow-up. Found to be persistently dyspneic. Having some atypical chest pain. Cardiology concern for acute exacerbation of diastolic heart failure. Given her soft blood pressures and difficulty diuresing at home, requested admission for monitor diuresis and medical management of her cardiac condition. Echocardiogram obtained earlier today showing preserved left ventricular ejection fraction. Dilated right ventricle noted. On evaluation, she is on baseline oxygen, denies chest pain, denies nausea or vomiting, denies headache or confusion. Reports that she has gained over 20 pounds in the past few months which she attributes to fluid as well as possibly from stopping smoking. Shortness of breath has gotten worse PFSH PFS Medical History Acute exacerbation of CHF (congestive heart failure) Acute exacerbation of chronic obstructive airways disease Acute systolic CHF (congestive heart failure) Atypical chest pain Bradycardia Carotid artery stenosis CKD (chronic kidney disease) COPD (chronic obstructive pulmonary disease) Coronary atherosclerosis of [place] coronary artery HLD (hyperlipidemia) NSTEMI (non-ST elevated myocardial infarction) Social History Smoking Status: Former smoker pack-years: 53 second hand exposure: No alcohol intake: never substance use type: denies use 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al status: retired Travel in the last 8 weeks: None household members: spouse housing: house 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al exposures/hazards: No caffeine: Yes Review of Systems Review of Systems Review of systems (narrative): 14 point review of systems performed, pertinent positives and negatives as per HPI Meds Home Medications and Allergies Home Medications Medication Instructions Recorded Confirmed Type aspirin 81 mg tablet,delayed 81 mg PO [facility] 01/30/19 07/02/22 History release albuterol sulfate 90 mcg/actuation 2 puffs inhalation QIDP PRN 08/03/19 07/02/22 History aerosol inhaler Shortness Of Breath clonazepam 0.5 mg tablet 0.5 mg PO BID Anxiety 09/07/19 07/02/22 History promethazine-DM 6.25 mg-15 mg/5 mL 5 ml PO TIDP PRN Cough 10/22/21 07/02/22 History oral syrup clopidogrel 75 mg tablet 75 mg PO HS Antiplatlet 12/13/21 07/02/22 History polyethylene glycol 3350 17 gram 17 gm PO NEEDED PRN Constipation 12/13/21 07/02/22 History oral powder packet atorvastatin 40 mg tablet 40 mg PO HS Cholesterol 12/17/21 07/02/22 History spironolactone 25 mg tablet 25 mg PO DAILY Fluid 12/17/21 07/02/22 History acyclovir 800 mg tablet 800 mg PO QID PRN 04/25/22 07/02/22 History cholecalciferol (vitamin D3) 25 25 mcg PO DAILY Supplement 04/25/22 07/02/22 History mcg (1,000 unit) capsule metoprolol succinate 25 mg 25 mg PO HS High blood pressure 04/25/22 07/02/22 History tablet,extended release 24 hr cariprazine 3 mg capsule (Vraylar) 3 mg PO DAILY 05/23/22 07/02/22 History hydrocodone 10 mg-acetaminophen 1 tab PO Q6H PRN pain 06/07/22 07/02/22 History 325 mg tablet mecobalamin (vitamin B12) 1,000 1,000 mcg sublingual DAILY 06/07/22 07/02/22 History mcg disintegrating Supplement tablet,sublingual nitroglycerin 0.4 mg sublingual 0.4 mg sublingual Q5-15M PRN chest 06/07/22 07/02/22 History tablet pain prednisone 10 mg tablet 10 mg PO DAILY pain 06/07/22 07/02/22 History azithromycin
[2022-07-02 18:34] LABS: Coronavirus 19, PCR Not Detected (NotDetected); Influenza A, PCR Not Detected (NotDetected); Influenza B, PCR Not Detected (NotDetected)
[2022-07-02 19:01] LABS: NT Pro Brain Natriuretic Pep. 114 pg/mL (0-125)
[2022-07-02 20:00] VITALS: BP 116/49; PULSE 60; PULSE 62; RESP 18; TEMP 36.5; O2SAT 99
[2022-07-02 22:57] LABS: Troponin I < 0.01 ng/ml (0.00-0.034)
[2022-07-02 23:09] VITALS: PULSE 56; O2SAT 94
[2022-07-03] VITALS (14 sets, daily range): BP systolic 77–135; BP diastolic 20–77; PULSE 50–89; RESP 16–19; TEMP 36.3–37; O2SAT 92–100; BMI 28.5
[2022-07-03 04:44] LABS: Troponin I < 0.01 ng/ml (0.00-0.034)
--- NOTE | 2022-07-03 05:43 | PC.NURSE ---
PT HAS RESTED INTERMITTENTLY THIS SHIFT. LUNG SOUNDS REMAINED DIMINISHED WITH FINE CRACKLES. REMAINS ON 3L NASAL CANNULA. PT HAD ONE EPISODE OF NAUSEA WITH VOMITING PT MEDICATED PER DEC FOR NAUSEA X2. PT DID C/O SOB ONCE AT THE BEGINNING OF SHIFT WHILE AMBULATING TO THE BATHROOM. VSS. NO C/O PAIN THIS SHIFT. PT HAS STATED THAT SHE HAS BEEN , A LITTLE ANXIOUS .
[2022-07-03 06:56] LABS: Basophils # 0.1 K/mm3 (0-0.2); Eosinophils # 0.3 K/mm3 (0.0-0.4); Eosinophils % 3.9 % (0.1-12.0); Hematocrit 30.8 % (37.0-47.0); Lymphocytes # 2.6 K/mm3 (0.7-4.5); Lymphocytes % 32.3 % (10-50); Mean Corpuscular HGB Conc 32.4 g/dL (31.8-35.4); Mean Corpuscular Hemoglobin 30.7 pg (27.0-31.2); Mean Corpuscular Volume 94.7 fl (81-99); Mean Platelet Volume 9.2 fl (7.4-10.4); Monocytes # 0.5 K/mm3 (0.1-1.0); Monocytes % 6.4 % (1.7-9.3); Neutrophils # 4.6 K/mm3 (1.8-7.8); Neutrophils % 56.4 % (37.0-80.0); Platelet Count 297 K/mm3 (142-424); Red Blood Count 3.25 M/mm3 (4.20-5.40); Red Cell Distribution Width 13.8 % (11.5-17.5); White Blood Count 8.1 K/mm3 (4.8-10.8)
[2022-07-03 07:02] LABS: Blood Urea Nitrogen 35 mg/dl (7-17); Calcium 8.4 mg/dl (8.4-10.2); Carbon Dioxide 39 mmol/L (22.0-30.0); Chloride 94 mmol/L (98-107); Chol/HDL Ratio 3.6 (1-3.5); Cholesterol 130 mg/dl (140-200); Creatinine Clearance Estimated 38 mL/min (50-200); Estimated Glomerular Filt Rate 26 ml/min (>60); GFR (African American) 32 ML/MIN (>60); Glucose 78 mg/dl (74-100); HDL Cholesterol 36 mg/dl (40-60); Sodium 133 mmol/L (136-145); Triglycerides 147 mg/dl (30-150); VLDL Cholesterol 29 mg/dL (0-40)
--- NOTE | 2022-07-03 08:25 | PC.NURSE ---
Informed Dr. Lombardo of low blood pressures, told to hold entresto. Patient asymptomatic and resting comfortably
--- NOTE | 2022-07-03 08:30 | P.PN_ITS ---
Subjective *Date: 07/03/22 *Time: 08:30 Interval history: Overall patient felt a little better through the night. Bumex was administered. She had a very minimal response. She denies breathing difficulties when she is still, but she does report shortness of air when she gets up and goes to the bathroom. Medical Exam Vital signs and Labs for Last 24 Hours: Temp Pulse Resp BP Pulse Ox 97.6 F 58 L 17 102/28 L 99 07/03/22 08:18 07/03/22 08:18 07/03/22 08:18 07/03/22 08:18 07/03/22 08:18 Laboratory Results - last 24 hr 07/02/22 15:50: NT-Pro-B Natriuret Pep 114 07/02/22 15:55: Total Bilirubin 0.2, Direct Bilirubin 0.1, Conjugated Bilirubin 0.0, Indirect Bilirubin 0.1, Unconjugated Bilirubin 0.1, AST 30, ALT 24, Alkaline Phosphatase 135 H, Troponin I < 0.01, Total Protein 6.3, Albumin 4.0 07/02/22 15:55: WBC 9.6, RBC 3.34 L, Hgb 10.3 L, Hct 31.7 L, MCV 94.8, MCH 30.9, MCHC 32.6, RDW 13.9, Plt Count 312, MPV 8.2, Neut % (Auto) 63.4, Lymph % (Auto) 26.4, [place] % (Auto) 6.3, Eos % (Auto) 3.1, Baso % (Auto) 0.7, Neut # (Auto) 6.1, Lymph # (Auto) 2.6, [place] # (Auto) 0.6, Eos # (Auto) 0.3, Baso # (Auto) 0.1 07/02/22 15:55: Sodium 134 L, Potassium 4.5, Chloride 94 L, Carbon Dioxide 37 H, Anion Gap 7.5, BUN 30 H, Creatinine 1.30 H, Estimated Creat Clear 54, Estimated GFR 40 L, Est GFR ( Amer) 49 L, Glucose 87, Calcium 8.9 07/02/22 18:27: SARS-CoV-2 (PCR) Not detected, Influenza A Untype (PCR) Not detected, Influenza Type B (PCR) Not detected 07/02/22 21:53: Troponin I < 0.01 07/03/22 04:10: Troponin I < 0.01 07/03/22 06:41: WBC 8.1, RBC 3.25 L, Hgb 10.0 L, Hct 30.8 L, MCV 94.7, MCH 30.7, MCHC 32.4, RDW 13.8, Plt Count 297, MPV 9.2, Neut % (Auto) 56.4, Lymph % (Auto) 32.3, [place] % (Auto) 6.4, Eos % (Auto) 3.9, Baso % (Auto) 1.0, Neut # (Auto) 4.6, Lymph # (Auto) 2.6, [place] # (Auto) 0.5, Eos # (Auto) 0.3, Baso # (Auto) 0.1 07/03/22 06:41: Sodium 133 L, Potassium 5.0, Chloride 94 L, Carbon Dioxide 39 H, Anion Gap 5.0, BUN 35 H, Creatinine 1.90 H D, Estimated Creat Clear 38, Estimated GFR 26 L, Est GFR ( Amer) 32 L D, Glucose 78, Calcium 8.4, T riglycerides 147, Cholesterol 130 L, VLDL Cholesterol 29, HDL Cholesterol 36 L, Cholesterol/HDL Ratio 3.6 H I & O for Labs for Last 24 Hours: Intake & Output 06/30/22 07/01/22 07/02/22 07/03/22 11:59 11:59 11:59 11:59 Intake Total 340 / 340 Output Total 2825 / 2825 Balance -2485 / -2485 Weight 192 lb 6.4 oz Comment:: No sacral edema. No pedal edema. Breathing fairly easily with lots of rhonchi. Heart rate regular. Abdomen soft. Patient is alert, pleasant. Assessment and Plan *Assessment and plan (1) SOB (shortness of breath) on exertion: Status: Acute Category: Medical Code(s): R06.02 - Shortness of breath Assessment and plan all Dx Assessment and Plan All Dx:: Discussed case with cardiology. Diuresis has not been very effective. Creatinine has bumped slightly. Right heart catheterization is tentatively being discussed. I think this to be reasonable to define whether or not patient does have right heart failure. 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 However clinically that is difficult to ascertain.
--- NOTE | 2022-07-03 09:26 | EXP.CARD.PN ---
Subjective Subjective Date: 07/03/22 Time: 09:26 Principal diagnosis: CHF Interval history: 80-year-old white female in bed in no acute distress. Still complains of some epigastric burning discomfort that is fairly constant for several months. She does get occasional relief when she uses Carafate for it. She does relate history of esophageal stricture status postdilatation earlier this year. Coronary stenting in December of this year did not affect the discomfort. Patient did quit smoking about 6 months ago but still has severe COPD noted on CT of the chest. She sees Dr. Milan who feels she may be a candidate for the [place] pulmonary assist device for which he is working her up. IV diuresis had little effect on her symptoms last evening. Creatinine did increase to 1.9 today. Exam Data for Last 24 hours Vital signs and Labs for Last 24 Hours: Temp Pulse Resp BP Pulse Ox 97.6 F 58 L 17 102/28 L 99 07/03/22 08:18 07/03/22 08:18 07/03/22 08:18 07/03/22 08:18 07/03/22 08:18 Laboratory Results - last 24 hr 07/02/22 15:50: NT-Pro-B Natriuret Pep 114 07/02/22 15:55: Total Bilirubin 0.2, Direct Bilirubin 0.1, Conjugated Bilirubin 0.0, Indirect Bilirubin 0.1, Unconjugated Bilirubin 0.1, AST 30, ALT 24, Alkaline Phosphatase 135 H, Troponin I < 0.01, Total Protein 6.3, Albumin 4.0 07/02/22 15:55: WBC 9.6, RBC 3.34 L, Hgb 10.3 L, Hct 31.7 L, MCV 94.8, MCH 30.9, MCHC 32.6, RDW 13.9, Plt Count 312, MPV 8.2, Neut % (Auto) 63.4, Lymph % (Auto) 26.4, [place] % (Auto) 6.3, Eos % (Auto) 3.1, Baso % (Auto) 0.7, Neut # (Auto) 6.1, Lymph # (Auto) 2.6, [place] # (Auto) 0.6, Eos # (Auto) 0.3, Baso # (Auto) 0.1 07/02/22 15:55: Sodium 134 L, Potassium 4.5, Chloride 94 L, Carbon Dioxide 37 H, Anion Gap 7.5, BUN 30 H, Creatinine 1.30 H, Estimated Creat Clear 54, Estimated GFR 40 L, Est GFR ( Amer) 49 L, Glucose 87, Calcium 8.9 07/02/22 18:27: SARS-CoV-2 (PCR) Not detected, Influenza A Untype (PCR) Not detected, Influenza Type B (PCR) Not detected 07/02/22 21:53: Troponin I < 0.01 07/03/22 04:10: Troponin I < 0.01 07/03/22 06:41: WBC 8.1, RBC 3.25 L, Hgb 10.0 L, Hct 30.8 L, MCV 94.7, MCH 30.7, MCHC 32.4, RDW 13.8, Plt Count 297, MPV 9.2, Neut % (Auto) 56.4, Lymph % (Auto) 32.3, [place] % (Auto) 6.4, Eos % (Auto) 3.9, Baso % (Auto) 1.0, Neut # (Auto) 4.6, Lymph # (Auto) 2.6, [place] # (Auto) 0.5, Eos # (Auto) 0.3, Baso # (Auto) 0.1 07/03/22 06:41: Sodium 133 L, Potassium 5.0, Chloride 94 L, Carbon Dioxide 39 H, Anion Gap 5.0, BUN 35 H, Creatinine 1.90 H D, Estimated Creat Clear 38, Estimated GFR 26 L, Est GFR ( Amer) 32 L D, Glucose 78, Calcium 8.4, Triglycerides 147, Cholesterol 130 L, VLDL Cholesterol 29, HDL Cholesterol 36 L, Cholesterol/HDL Ratio 3.6 H I & O for Last 24 hours: Intake & Output 06/30/22 07/01/22 07/02/22 07/03/22 11:59 11:59 11:59 11:59 Intake Total 340 / 340 Output Total 3075 / 3075 Balance -2735 / -2735 Weight 192 lb 6.4 oz Constitutional Constitutional: no acute distress *Routine Respiratory Exam Respiratory: Present decreased breath sounds *Routine Cardiovascular Exam Cardiovascular: Present RRR; Absent murmur Progress Note: A&P Assessment and plan (1) SOB (shortness of breath) on exertion: Status: Acute (2) COPD (chronic obstructive pulmonary disease): Status: Chronic (3) Coronary atherosclerosis of [place] coronary artery: Status: Chronic (4) HLD (hyperlipidemia): Status: Chronic (5) ADAM (acute kidney injury): Status: Acute (6) Chest pain: Problem details: Noncardiac Status: Acute (7) Hypertension: Status: Chronic Assessment and Plan Assessment and Plan for All Diagnoses:: 1. Chronic shortness of breath felt secondary to COPD. Possibly end-stage but would consider right heart catheterization for further evaluation. Patient sees pulmonology on an outpatient basis. BNP this admission is 114. 2. Atypical chest pain, persistent despite coronary stenting e
--- NOTE | 2022-07-03 09:58 | HMH.PHAINT1 ---
Pharmacy Intervention Comments: MEDICATION RECONCILIATION COMPLETED ON PATIENT USING EXTERNAL FILL HISTORY FROM PHARMACY AND LIST FROM CARDIOLOGY OFFICE. -CARMINE BAILEY, BASILIOD
--- NOTE | 2022-07-03 10:00 | P.CONPHA_ITS ---
[facility] Pharmacy VTE Monitoring Patient Demographics Admission date: 07/02/22 Report Date: 07/03/22 Time: 10:00 Patient Allergies No Known Allergies Allergy (Verified 07/02/22 13:27) Height: 1.75 m Weight: 87.271 kg Current Active Problems (Updated 07/03/22 @ 03:17 by Payal Johnson RN) HLD (hyperlipidemia) (Chronic) COPD (chronic obstructive pulmonary disease) (Chronic) Atypical chest pain (Acute) Coronary atherosclerosis of [place] coronary artery (Chronic) CKD (chronic kidney disease) (Chronic) SOB (shortness of breath) on exertion (Acute) Acute exacerbation of CHF (congestive heart failure) (Acute) VTE Risk Labs: VTE Related Lab Results Hgb 10.0 g/dL (12.2-16.2) L 07/03/22 06:41 Hct 30.8 % (37.0-47.0) L 07/03/22 06:41 Plt Count 297 K/mm3 (142-424) 07/03/22 06:41 BUN 35 mg/dl (7-17) H 07/03/22 06:41 Creatinine 1.90 mg/dl (0.52-1.04) H D 07/03/22 06:41 Estimated Creat Clear 38 mL/min (50-200) 07/03/22 06:41 Prophylaxis VTE Prophylaxis Ordered?: Yes Types of VTE Prophylaxis: TEDS Knee High Location of Applied Device: Bilateral Lower Extremeties
[2022-07-03 10:15] LABS: Troponin I < 0.01 ng/ml (0.00-0.034)
--- NOTE | 2022-07-03 14:10 | PC.NURSE ---
Patient began to feel nauseas again, patient vomited small amount of clear phleghmy liquid. Dr. Lombardo's office called and order for 12.5mg iv phenergan given.
--- NOTE | 2022-07-03 14:27 | PC.NURSE ---
rounded on patient. patient resting in bed with family at bedside. no questions or concerns noted. stated she had been more comfortable since switching out her bed. call light within reach. encouraged her to ring out with any needs or concern.s
--- NOTE | 2022-07-03 15:14 | PC.NURSE ---
VS stable. Patient remains on baseline 2LNC. Zofran given for nausea and pt had vomited small amount of clear phleghmy substance. Zofran had worked for a moment but then pt requested phenergan as she had another episode of vomiting and nausea. Dr. Lombardo's office called, phenergan ordered for one time dose. Patient stated she felt much better after infusion. Lung sounds diminished. Heart cath tomorrow per cardiology due to ADAM, fluids started. No other needs verbalized.
--- NOTE | 2022-07-03 20:10 | PC.NURSE ---
paged Dr Lombardo at this time regarding pts BP/BP meds. was ordered to hold entresto and give metoprolol tonight.
[2022-07-04] VITALS (11 sets, daily range): BP systolic 93–144; BP diastolic 48–57; PULSE 50–96; RESP 17–20; TEMP 36.4–36.7; O2SAT 92–98; BMI 28.4
--- NOTE | 2022-07-04 04:33 | PC.NURSE ---
pt c/o nausea and anxiety this shift and was medicated per dec. she c/o soa while ambulating to bathroom. she remains on 2L nc, o2 sats have been 98-100%. call light in reach, no needs at this time.
--- NOTE | 2022-07-04 07:58 | P.PN_ITS ---
Subjective Subjective Date: 07/04/22 Time: 07:59 Principal diagnosis: CHF Interval history: 72-year-old white female in bed in no acute distress. Chest pain seems to be slightly improved with Carafate. Patient relates she is still very short of breath just getting up and ambulating in the room. Labs pending this morning Exam Data for Last 24 hours Vital signs and Labs for Last 24 Hours: Temp Pulse Resp BP Pulse Ox 98.1 F 50 L 17 93/48 L 92 L 07/04/22 04:00 07/04/22 04:45 07/04/22 04:00 07/04/22 04:00 07/04/22 04:00 Laboratory Results - last 24 hr 07/03/22 09:28: Troponin I < 0.01 I & O for Last 24 hours: Intake & Output 07/01/22 07/02/22 07/03/22 07/04/22 11:59 11:59 11:59 11:59 Intake Total 340 / 340 2671 / 2671 Output Total 3275 / 3275 925 / 925 Balance -2935 / -2935 1746 / 1746 Weight 192 lb 6.358 oz 192 lb 4 oz *Routine Respiratory Exam Respiratory: Present diminished air movement *Routine Cardiovascular Exam Cardiovascular: Present RRR Progress Note: A&P Assessment and plan (1) SOB (shortness of breath) on exertion: Status: Acute (2) COPD (chronic obstructive pulmonary disease): Status: Chronic (3) Coronary atherosclerosis of [place] coronary artery: Status: Chronic (4) HLD (hyperlipidemia): Status: Chronic (5) ADAM (acute kidney injury): Status: Acute (6) Chest pain: Problem details: Noncardiac Status: Acute (7) Hypertension: Status: Chronic Assessment and Plan Assessment and Plan for All Diagnoses:: BMP this AM shows Cr 2.0. Resume IVF per Dr. Lombardo. Possible discharge tomorrow. Favor holding off on cardiac cath due to recent ADAM in favor of outpatient stress testing. Will get limited echo with definity to confirm EF (recent echo was difficult study with presumed normal LVEF).
[2022-07-04 08:20] LABS: Basophils # 0.1 K/mm3 (0-0.2); Basophils % 0.8 % (0.1-2.0); Eosinophils # 0.3 K/mm3 (0.0-0.4); Eosinophils % 4.1 % (0.1-12.0); Hematocrit 30.8 % (37.0-47.0); Hemoglobin 9.6 g/dL (12.2-16.2); Lymphocytes % 29.7 % (10-50); Mean Corpuscular HGB Conc 31.1 g/dL (31.8-35.4); Mean Corpuscular Volume 96.4 fl (81-99); Mean Platelet Volume 9.4 fl (7.4-10.4); Monocytes # 0.5 K/mm3 (0.1-1.0); Monocytes % 7.4 % (1.7-9.3); Neutrophils # 3.8 K/mm3 (1.8-7.8); Platelet Count 290 K/mm3 (142-424); Red Cell Distribution Width 13.7 % (11.5-17.5); White Blood Count 6.6 K/mm3 (4.8-10.8)
[2022-07-04 08:22] LABS: Chloride 98 mmol/L (98-107); Sodium 135 mmol/L (136-145)
[2022-07-04 08:23] LABS: Potassium 4.8 mmoL/L (3.5-5.1)
[2022-07-04 08:26] LABS: Direct LDL Cholesterol 64 mg/dL (100-129)
[2022-07-04 08:26] LABS: Anion Gap 6.8 mEq/L (5-15); Blood Urea Nitrogen 34 mg/dl (7-17); Carbon Dioxide 35 mmol/L (22.0-30.0); Creatinine Clearance Estimated 36 mL/min (50-200); Estimated Glomerular Filt Rate 25 ml/min (>60); GFR (African American) 30 ML/MIN (>60); Glucose 91 mg/dl (74-100)
--- NOTE | 2022-07-04 09:07 | CA_ITS ---
APPROVED REPORT EXAM: Comprehensive 2D, Doppler, and color-flow Echocardiogram [place] Machine Operator: LITA Guerrero, RVS Ht: 5 ft 8 in Wt: 192lbs BSA: 2.01 BP: 93/48 mmHg Indications: CHF, CKD-RF, CAD, COPD,SOB Echo Enhancing Agent Indication: Endocardial border delineation Agent(s) / Amount(s) Used: Definity 2 cc Comments: Global wall motion estimated EF=50% Conclusion 1. Limited echocardiogram was obtained to evaluate left ventricular systolic function, Definity contrast was also utilized. 2. Normal left ventricular size, estimated ejection fraction 55% with no obvious regional wall motion abnormality, there is no left ventricular thrombus seen. Electronically signed by : Vinnie Rudd MD 07/05/2022 13:22:11
--- NOTE | 2022-07-04 10:19 | P.PN_ITS ---
Subjective *Date: 07/04/22 *Time: 10:19 Interval history: Patient feels little better after 1 L of IV fluids. Good urine output. Shortness of air is about the same. I discussed case with cardiology service and reviewed patient's labs with her and with cardiology. Medical Exam Vital signs and Labs for Last 24 Hours: Temp Pulse Resp BP Pulse Ox 97.6 F 65 18 126/57 L 97 07/04/22 08:00 07/04/22 08:00 07/04/22 08:00 07/04/22 08:00 07/04/22 08:00 Laboratory Results - last 24 hr 07/03/22 06:41: LDL Cholesterol Direct 64 L 07/04/22 08:05: Sodium 135 L, Potassium 4.8, Chloride 98, Carbon Dioxide 35 H, Anion Gap 6.8, BUN 34 H, Creatinine 2.00 H, Estimated Creat Clear 36, Estimated GFR 25 L, Est GFR ( Amer) 30 L, Glucose 91, Calcium 8.0 L 07/04/22 08:05: WBC 6.6, RBC 3.20 L, Hgb 9.6 L, Hct 30.8 L, MCV 96.4, MCH 30.0, MCHC 31.1 L, RDW 13.7, Plt Count 290, MPV 9.4, Neut % (Auto) 58.0, Lymph % (Auto) 29.7, [place] % (Auto) 7.4, Eos % (Auto) 4.1, Baso % (Auto) 0.8, Neut # (Auto) 3.8, Lymph # (Auto) 2.0, [place] # (Auto) 0.5, Eos # (Auto) 0.3, Baso # (Auto) 0.1 I & O for Labs for Last 24 Hours: Intake & Output 07/01/22 07/02/22 07/03/22 07/04/22 11:59 11:59 11:59 11:59 Intake Total 340 / 340 3031 / 3031 Output Total 3275 / 3275 2075 / 2075 Balance -2935 / -2935 956 / 956 Weight 192 lb 6.358 oz 192 lb 4 oz Comment:: Patient is pleasant, alert. Oriented. Less dyspneic than yesterday. Has good air movement in the bases with no crackles. A little bit rhonchorous at b as[place]. No ankle edema. Abdomen soft. Heart rate regular. Assessment and Plan *Assessment and plan (1) COPD (chronic obstructive pulmonary disease): Status: Chronic Qualifiers: COPD type: chronic bronchitis Chronic bronchitis type: simple Qualified Code(s): J41.0 - Simple chronic bronchitis Category: Medical Code(s): J44.9 - Chronic obstructive pulmonary disease, unspecified (2) SOB (shortness of breath) on exertion: Status: Acute Category: Medical Code(s): R06.02 - Shortness of breath (3) ADAM (acute kidney injury): Status: Acute Category: Medical Code(s): N17.9 - Acute kidney failure, unspecified Plan I do not believe patient's dyspnea is from right heart failure based on her lack of response to IV diuretics and bump in creatinine which means she was fairly dry to begin with. I think patient's baseline dyspnea is from COPD which is at terminal stage. I discussed this with her. However now that we have an acute kidney injury because of the IV Bumex she will need to stay another night and receive IV fluids and we will reassess tomorrow for discharge.
--- NOTE | 2022-07-04 14:52 | PC.NURSE ---
rounded on patient, assisted patient to bathroom. helped with changing gown, and draw sheet on bed changed. offered patient a shower which she refused stating she had a really good bed bath last night. no questions or concerns noted. encouraged her to ring out as needed
--- NOTE | 2022-07-04 17:20 | PC.NURSE ---
shift summary: GCS 15. NSR on tele. Had episode of what seemed to be a bronchospasm after ambulating to bathroom. Audible wheezing and pursed lip breathing noted. PRN neb given which did help. Took aprox 20min for pt to calm down. She had difficulty swallowing afternoon dose of Carafate. Was able to swallow it when crushed and mixed applesauce. She reports that his is not the first time this has happened. On 2L NC continuously. Bilateral lungs continue with wheezing, to which Solumedrol 125mg IV x 1 ordered. Ambulates to bathroom with standby assist. No n/v/d. Tolerates a cardiac diet. NS infusing @ 75mL/hr.
[2022-07-04 19:36] LABS: Chloride 101 mmol/L (98-107)
[2022-07-04 19:37] LABS: Potassium 4.8 mmoL/L (3.5-5.1)
[2022-07-04 19:40] LABS: Blood Urea Nitrogen 34 mg/dl (7-17); Carbon Dioxide 30 mmol/L (22.0-30.0); Creatinine Clearance Estimated 38 mL/min (50-200); Estimated Glomerular Filt Rate 26 ml/min (>60); GFR (African American) 32 ML/MIN (>60); Glucose 144 mg/dl (74-100)
[2022-07-04 20:45] LABS: Anion Gap 6.8 mEq/L (5-15); Sodium 133 mmol/L (136-145)
[2022-07-05] VITALS: PULSE 60
[2022-07-05 04:00] VITALS: BP 133/43; PULSE 60; RESP 19; TEMP 36.6; O2SAT 97
[2022-07-05 05:00] VITALS: BMI 27.3
[2022-07-05 06:29] LABS: Basophils % 0.2 % (0.1-2.0); Eosinophils % 0.1 % (0.1-12.0); Hematocrit 30.7 % (37.0-47.0); Hemoglobin 10.2 g/dL (12.2-16.2); Lymphocytes # 0.8 K/mm3 (0.7-4.5); Lymphocytes % 9.1 % (10-50); Mean Corpuscular HGB Conc 33.4 g/dL (31.8-35.4); Mean Corpuscular Hemoglobin 30.7 pg (27.0-31.2); Mean Corpuscular Volume 91.9 fl (81-99); Mean Platelet Volume 8.8 fl (7.4-10.4); Monocytes # 0.1 K/mm3 (0.1-1.0); Monocytes % 1.2 % (1.7-9.3); Neutrophils # 8.2 K/mm3 (1.8-7.8); Neutrophils % 89.5 % (37.0-80.0); Platelet Count 267 K/mm3 (142-424); Red Blood Count 3.34 M/mm3 (4.20-5.40); Red Cell Distribution Width 13.7 % (11.5-17.5); White Blood Count 9.2 K/mm3 (4.8-10.8)
--- NOTE | 2022-07-05 06:29 | PC.NURSE ---
pt has been restless most of the shift. she remain on 2L o2 NC. only c/o SOA after ambulating to the bathroom, but recovers quickly. NSR on telemetry. no other complaints or issues this shift. states she is ready to go home.
[2022-07-05 06:37] VITALS: PULSE 61; PULSE 68; O2SAT 99
[2022-07-05 06:40] LABS: MANUAL DIFFERENTIAL MANUAL DIFFERENTIAL (MANUAL DIFF)
[2022-07-05 06:59] LABS: Anion Gap 10.1 mEq/L (5-15); Blood Urea Nitrogen 30 mg/dl (7-17); Calcium 8.6 mg/dl (8.4-10.2); Carbon Dioxide 27 mmol/L (22.0-30.0); Chloride 103 mmol/L (98-107); Creatinine Clearance Estimated 50 mL/min (50-200); Estimated Glomerular Filt Rate 37 ml/min (>60); GFR (African American) 45 ML/MIN (>60); Glucose 141 mg/dl (74-100); Potassium 5.1 mmoL/L (3.5-5.1); Sodium 135 mmol/L (136-145)
[2022-07-05 07:19] LABS: Lymphocytes % 9 % (10-50); Monocytes % 1 % (2-9); Neutrophils % 90 % (42-76); Platelet Estimate Normal; RBC Morphology Normal; Total Cells Counted 100
--- NOTE | 2022-07-05 07:48 | EXP.DC.SUM ---
General Admission date:: 07/02/22 Discharge date: 07/05/22 HPI HPI HPI: Ms. Black is a 72-year-old female with multiple comorbidities including coronary artery disease, significant history of tobacco dependence (greater than [id number] history of smoking), oxygen dependent COPD, CHF, who has had worsening shortness of breath that has progressed over the past several weeks. She presented to cardiology clinic earlier today for close follow-up. Found to be persistently dyspneic. Having some atypical chest pain. Cardiology concern for acute exacerbation of diastolic heart failure. Given her soft blood pressures and difficulty diuresing at home, requested admission for monitor diuresis and medical management of her cardiac condition. Echocardiogram obtained earlier today showing preserved left ventricular ejection fraction. Dilated right ventricle noted. On evaluation, she is on baseline oxygen, denies chest pain, denies nausea or vomiting, denies headache or confusion. Reports that she has gained over 20 pounds in the past few months which she attributes to fluid as well as possibly from stopping smoking. Shortness of breath has gotten worse Hospital Course Hospital Course Hospital Course: 72 yo F with coronary artery disease and CHF. Admitted from Cardiology clinic earlier today due to worsening SOA. Admitted due to sensation of smothering. Initial concern for volume overload, was admitted for diuresis and close monitoring. Diuresed well but developed acute kidney injury. Had no significant improvement in breathing. Continue to monitor creatinine, peaked at 2, improved to 1.4 on day of discharge. - Echo obtained to evaluate ejection fraction, EF 50 to 55%. Continue medical management of her CHF. - We will continue management of her end-stage COPD with long-acting daily inhaler. Have sent shaquille COZeros for use with her nebulizer at home. - Cardiology consulted during admission. No Cath performed due to ADAM. Stable from a cardiac standpoint for discharge home, medication recommendations from Cards: Entresto twice daily Protonix 40 mg daily Aspirin 81 mg daily Atorvastatin 40 mg daily Plavix 75 mg daily Metoprolol succinate 12.5 mg daily Follow-up with Cardiology in 2 weeks. Follow-up with PCP in 1 week. Follow-up with Pulmonology in 1-2 weeks. Medically stable to [place] home. Exam Data for Last 24 hours Vital signs and Labs for Last 24 Hours: Temp Pulse Resp BP Pulse Ox 97.8 F 61 19 133/43 L 99 07/05/22 04:00 07/05/22 06:37 07/05/22 04:00 07/05/22 04:00 07/05/22 06:37 Laboratory Results - last 24 hr 07/03/22 06:41: LDL Cholesterol Direct 64 L 07/04/22 08:05: Sodium 135 L, Potassium 4.8, Chloride 98, Carbon Dioxide 35 H, Anion Gap 6.8, BUN 34 H, Creatinine 2.00 H, Estimated Creat Clear 36, Estimated GFR 25 L, Est GFR ( Amer) 30 L, Glucose 91, Calcium 8.0 L 07/04/22 08:05: WBC 6.6, RBC 3.20 L, Hgb 9.6 L, Hct 30.8 L, MCV 96.4, MCH 30.0, MCHC 31.1 L, RDW 13.7, Plt Count 290, MPV 9.4, Neut % (Auto) 58.0, Lymph % (Auto) 29.7, [place] % (Auto) 7.4, Eos % (Auto) 4.1, Baso % (Auto) 0.8, Neut # (Auto) 3.8, Lymph # (Auto) 2.0, [place] # (Auto) 0.5, Eos # (Auto) 0.3, Baso # (Auto) 0.1 07/04/22 19:11: Sodium 133 L, Potassium 4.8, Chloride 101, Carbon Dioxide 30, Anion Gap 6.8, BUN 34 H, Creatinine 1.90 H, Estimated Creat Clear 38, Estimated GFR 26 L, Est GFR ( Amer) 32 L, Glucose 144 H D, Calcium 8.0 L 07/05/22 06:07: WBC 9.2 D, RBC 3.34 L, Hgb 10.2 L, Hct 30.7 L, MCV 91.9, MCH 30.7, MCHC 33.4, RDW 13.7, Plt Count 267, MPV 8.8, Neut % (Auto) 89.5 H, Lymph % (Auto) 9.1 L, [place] % (Auto) 1.2 L, Eos % (Auto) 0.1, Baso % (Auto) 0.2, Neut # (Auto) 8.2 H, Lymph # (Auto) 0.8, [place] # (Auto) 0.1, Eos # (Auto) 0.0, Baso # (Auto) 0.0, Total Counted 100, Neutrophils % (Manual) 90 H, Lymphocytes % (Manual) 9 L, Monocytes % (Manual) 1 L, Platelet Estimate Normal, RBC Morphology Normal 07/05/22 06:07: Sodium 135 L, Potassium 5.1, Chloride 103
[2022-07-05 08:00] VITALS: BP 137/48; PULSE 68; RESP 20; TEMP 36.4; O2SAT 98
--- NOTE | 2022-07-05 08:59 | HMH.PHAINT1 ---
Pharmacy Intervention Comments: DISCHARGE MEDICATION COUNSELING PROVIDED. DISCUSSED CHANGE ON THE ENTRESTO FROM THE 49MG/51MG TAKING HALF A TABLET TO THE 24MG/26MG TAKING A FULL TABLET. ALSO DISCUSSED THE DUONEB TREATMENTS TO USE EVERY 4 HOURS NEEDED FOR SHORTNESS OF BREATH. PATIENT HAS HAD THESE BEFORE AND EXPRESSED UNDERSTANDING. VERBALIZED NO QUESTIONS AT THIS TIME.
--- NOTE | 2022-07-05 09:03 | EXP.CARD.PN ---
Subjective Subjective Date: 07/05/22 Time: 09:03 Principal diagnosis: CHF Interval history: 72-year-old white female in bed with oxygen in no acute distress. Still with exertional shortness of breath but no chest pain. Preliminary limited echo yesterday shows ejection fraction of about 50% consistent with recovered cardiomyopathy. Exam Data for Last 24 hours Vital signs and Labs for Last 24 Hours: Temp Pulse Resp BP Pulse Ox 97.8 F 61 19 133/43 L 99 07/05/22 04:00 07/05/22 06:37 07/05/22 04:00 07/05/22 04:00 07/05/22 06:37 Laboratory Results - last 24 hr 07/04/22 19:11: Sodium 133 L, Potassium 4.8, Chloride 101, Carbon Dioxide 30, Anion Gap 6.8, BUN 34 H, Creatinine 1.90 H, Estimated Creat Clear 38, Estimated GFR 26 L, Est GFR ( Amer) 32 L, Glucose 144 H D, Calcium 8.0 L 07/05/22 06:07: WBC 9.2 D, RBC 3.34 L, Hgb 10.2 L, Hct 30.7 L, MCV 91.9, MCH 30.7, MCHC 33.4, RDW 13.7, Plt Count 267, MPV 8.8, Neut % (Auto) 89.5 H, Lymph % (Auto) 9.1 L, [place] % (Auto) 1.2 L, Eos % (Auto) 0.1, Baso % (Auto) 0.2, Neut # (Auto) 8.2 H, Lymph # (Auto) 0.8, [place] # (Auto) 0.1, Eos # (Auto) 0.0, Baso # (Auto) 0.0, Total Counted 100, Neutrophils % (Manual) 90 H, Lymphocytes % (Manual) 9 L, Monocytes % (Manual) 1 L, Platelet Estimate Normal, RBC Morphology Normal 07/05/22 06:07: Sodium 135 L, Potassium 5.1, Chloride 103, Carbon Dioxide 27, Anion Gap 10.1, BUN 30 H, Creatinine 1.40 H D, Estimated Creat Clear 50, Estimated GFR 37 L, Est GFR ( Amer) 45 L D, Glucose 141 H, Calcium 8.6 I & O for Last 24 hours: Intake & Output 0907/03/22 07/04/22 07/05/22 11:59 11:59 11:59 11:59 Intake Total 340 / 340 3031 / 3031 2725 / 2725 Output Total 3275 / 3275 2074 / 2074 3575 / 3575 Balance -2935 / -2935 956 / 956 -850 / -850 Weight 192 lb 6.358 oz 192 lb 4 oz 185 lb Constitutional Constitutional: no acute distress *Routine Respiratory Exam Respiratory: Present CTA bilaterally *Routine Cardiovascular Exam Cardiovascular: Present RRR Progress Note: A&P Assessment and plan (1) COPD (chronic obstructive pulmonary disease): Status: Chronic (2) SOB (shortness of breath) on exertion: Status: Acute (3) ADAM (acute kidney injury): Status: Acute Assessment and Plan Assessment and Plan for All Diagnoses:: Shortness of breath related to end-stage COPD History of ischemic cardiomyopathy, recovered on medical therapy with EF 50% now Acute kidney injury, improved with creatinine 1.4 today. Plan Stable from a cardiac standpoint for discharge home Home medication recommendations Entresto twice daily Protonix 40 mg daily Aspirin 81 mg daily Atorvastatin 40 mg daily Plavix 75 mg daily Metoprolol succinate 12.5 mg daily Follow-up in our office in 1 to 2 weeks. Consider outpatient stress testing.
--- NOTE | 2022-07-08 13:09 | CARE MANAGER ---
Called and spoke with patient r/t post discharge status. Patient stated that she was able to picket [employer] her nebulizer prescription, and was given samples of Entresto. Patient is aware of f/u appointments and has no known needs at this time. She stated that she had a good experience, and was treated well by all staff.
== END 2022-07-05 09:10 | disposition home or self-care (01) ==
PROVIDERS: Internal Medicine Adolescent Medicine; Nurse Practitioner Family; Physician Assistant; Admitting Provider Internal Medicine Adolescent Medicine; PCP Internal Medicine Adolescent Medicine; Visit Provider Internal Medicine Adolescent Medicine
DX: I50.43 Acute on chronic combined systolic (congestive) and diastolic (congestive) heart failure (principal); I12.9 Hypertensive chronic kidney disease with stage 1 through stage 4 chronic kidney disease, or unspecified chronic kidney disease; N18.30 Chronic kidney disease, stage 3 unspecified; N17.9 Acute kidney failure, unspecified; J44.9 Chronic obstructive pulmonary disease, unspecified; Z99.81 Dependence on supplemental oxygen; J41.0 Simple chronic bronchitis; I65.23 Occlusion and stenosis of bilateral carotid arteries; Z79.899 Other long term (current) drug therapy; I25.10 Atherosclerotic heart disease of native coronary artery without angina pectoris
CPT/HCPCS: G0378; G0379; 36415; 71045; 80048; 80061; 80076; 83880; 84484; 85007; 85025; 93308; 94640; 94760; 94761; C9803; J2405; Q9957; U0003; U0005

== ENCOUNTER → 2022-07-24 12:35 | Outpatient (CLI) | payer MEDICARE, OTHER, SELFPAY ==
[2022-07-24 13:45] VITALS: PULSE 64; PULSE 70
== END ==
PROVIDERS: PCP Internal Medicine Adolescent Medicine; Visit Provider Internal Medicine Pulmonary Disease
DX: R06.02 Shortness of breath (principal)
CPT/HCPCS: 94060; 94640

== ENCOUNTER 2022-07-29 11:00 | Outpatient (RCR) | payer MEDICARE, OTHER, SELFPAY | END 2022-08-26 13:39 | disposition home or self-care (01) | LOC: PT.CARL 11:00 | PROVIDERS: PCP Internal Medicine Adolescent Medicine; Visit Provider Internal Medicine Pulmonary Disease | DX: J44.9 Chronic obstructive pulmonary disease, unspecified (principal); Z72.3 Lack of physical exercise | CPT/HCPCS: 97110; 97163; 97164; 97530 ==

== ENCOUNTER → 2022-12-16 14:44 | Outpatient (CLI) | payer MEDICARE, OTHER, SELFPAY ==
--- NOTE | 2022-12-16 14:45 | CT_ITS ---
FINAL REPORT CLINICAL HISTORY: lung cancer screening, 72-year-old former smoker of 1 year with a 79 pack-year smoking history. Pt has COPD, Emphysema, CAD, CHF COMPARISON: 08/08/2021 and 03/02/2019 FINDINGS: Low-Dose Chest CT Axial images were obtained from the lung apex to the mid abdomen by computed tomography. Low-dose protocol was utilized. CTDI vol (mGy): 2.90 DLP (mGy-cm): 107.59 There is no axillary adenopathy. There is no hilar or mediastinal adenopathy. The heart is proper size. There is no pericardial or pleural effusion. Lung window images demonstrate severe changes of emphysema. There are multiple calcified granulomas. There are stable, less than 5 mm, left upper lobe nodules. No new mass or nodule is identified. Limited images of the upper abdomen reveals postoperative changes from cholecystectomy. IMPRESSION: Stable, less than 5 mm, left upper lobe nodules. Lung RADS category 1. Recommend 12 month follow-up low-dose chest CT. Reviewed, Interpreted and Dictated by Yoshi Gutierrez III, MD Transcribed by Harini Fragoso Authenticated and [facility]
== END ==
PROVIDERS: PCP Internal Medicine Adolescent Medicine; Visit Provider Internal Medicine Pulmonary Disease
DX: Z87.891 Personal history of nicotine dependence (principal); Z12.2 Encounter for screening for malignant neoplasm of respiratory organs
CPT/HCPCS: 71271

== ENCOUNTER → 2023-01-20 10:04 | Outpatient (CLI) | payer MEDICARE, OTHER, SELFPAY ==
[2023-01-20 10:34] LABS: Basophils # 0.1 K/mm3 (0-0.2); Basophils % 0.9 % (0.1-2.0); Eosinophils # 0.6 K/mm3 (0.0-0.4); Eosinophils % 5.3 % (0.1-12.0); Hematocrit 35.3 % (37.0-47.0); Hemoglobin 11.3 g/dL (12.2-16.2); Lymphocytes % 25.3 % (10-50); Mean Corpuscular HGB Conc 31.9 g/dL (31.8-35.4); Mean Corpuscular Hemoglobin 30.2 pg (27.0-31.2); Mean Corpuscular Volume 94.5 fl (81-99); Mean Platelet Volume 8.1 fl (7.4-10.4); Monocytes # 0.7 K/mm3 (0.1-1.0); Monocytes % 5.6 % (1.7-9.3); Neutrophils # 7.4 K/mm3 (1.8-7.8); Neutrophils % 62.8 % (37.0-80.0); Platelet Count 327 K/mm3 (142-424); Red Blood Count 3.73 M/mm3 (4.20-5.40); Red Cell Distribution Width 14.4 % (11.5-17.5); White Blood Count 11.7 K/mm3 (4.8-10.8)
[2023-01-20 10:50] LABS: Alanine Aminotransferase 19 U/L (12-78); Albumin Level 4.3 g/dl (3.5-5.0); Alkaline Phosphatase 116 U/L (38-126); Aspartate Amino Transferase 24 U/L (14-36); Bilirubin,Indirect 0.5 mg/dL (0.0-0.9); Bilirubin,Total 0.5 mg/dl (0.2-1.3); Bilirubin,Unconjugated 0.5 mg/dL (0.0-1.1); Blood Urea Nitrogen 35 mg/dl (7-17); Carbon Dioxide 31 mmol/L (22.0-30.0); Chloride 98 mmol/L (98-107); Estimated Glomerular Filt Rate 22 ml/min (>60); GFR (African American) 27 ML/MIN (>60); Glucose 97 mg/dl (74-100); Sodium 139 mmol/L (136-145); Total Protein,Serum 6.6 g/dl (6.3-8.2)
[2023-01-20 10:59] LABS: NT Pro Brain Natriuretic Pep. 143 pg/mL (0-125)
[2023-01-20 11:21] LABS: Thyroid Stimulating Hormone 1.35 uIU/mL (0.465-4.68)
[2023-01-20 11:22] LABS: Free T4 (Free Thyroxine) 1.52 ng/dl (0.78-2.19)
== END ==
PROVIDERS: PCP Internal Medicine Adolescent Medicine; Visit Provider Physician Assistant
DX: E11.9 Type 2 diabetes mellitus without complications (principal); E78.2 Mixed hyperlipidemia; I10 Essential (primary) hypertension; I25.118 Atherosclerotic heart disease of native coronary artery with other forms of angina pectoris; I65.23 Occlusion and stenosis of bilateral carotid arteries; J44.1 Chronic obstructive pulmonary disease with (acute) exacerbation; N18.30 Chronic kidney disease, stage 3 unspecified; R06.02 Shortness of breath; R53.83 Other fatigue; R60.9 Edema, unspecified; Z95.5 Presence of coronary angioplasty implant and graft; I50.9 Heart failure, unspecified; R06.00 Dyspnea, unspecified; I63.9 Cerebral infarction, unspecified
CPT/HCPCS: 36415; 80048; 80076; 83880; 84439; 84443; 85025

== ENCOUNTER → 2023-01-24 17:11 | Outpatient (CLI) | payer MEDICARE, OTHER, SELFPAY | PROVIDERS: PCP Nurse Practitioner Family; Visit Provider Nurse Practitioner Family | DX: R53.83 Other fatigue (principal) | CPT/HCPCS: 87086 ==

== ENCOUNTER 2023-02-03 12:54 | Emergency (ER) | payer MEDICARE, OTHER, SELFPAY ==
--- NOTE | 2023-02-03 12:52 | ECG_ITS ---
APPROVED REPORT Exam: Resting ECG HR:60 bpm ECG Measurements Heart Rate 60 AXES DC 155 P 27 QRSd 81 QRS 63 QT 397 T 84 QTc 399 Conclusion SINUS RHYTHM LOW QRS VOLTAGE [QRS DEFLECTION < 0.5/1.0 mV IN LIMB/CHEST LEADS] ABNORMAL ECG UNCONFIRMED REPORT Electronically signed by : Ephraim Lombardo MD 02/03/2023 20:20:17
[2023-02-03 12:54] VITALS: BP 140/73; PULSE 73; RESP 24; TEMP 36.6; O2SAT 90; BMI 29.2
--- NOTE | 2023-02-03 13:00 | HMH.EDGENADL ---
Discharge Plan Disposition Patient Disposition: Home, Self-Care Prescriptions Prescriptions: No Action metoprolol succinate 25 mg tablet extended release 24 hr 12.5 mg PO HS Label Comments: TAKE 1/2 TABLET ONCE A DAY. furosemide 40 mg tablet 20 mg PO DAILY Label Comments: TAKE 1 TABLET 1 TIME EACH DAY albuterol sulfate 2.5 mg /3 mL (0.083 %) solution for nebulization 2.5 mg inhalation Q4H PRN (Reason: shortness of breath or wheezing) Qty: 75 2RF clonazepam 0.5 mg tablet 0.5 mg PO TIDP PRN (Reason: Anxiety) cholecalciferol (vitamin D3) 25 mcg (1,000 unit) capsule 25 mcg PO DAILY mecobalamin (vitamin B12) 1,000 mcg tablet,disintegrating 1,000 mcg SL DAILY prednisone 10 mg tablet 10 mg PO MOWEFR nitroglycerin 0.4 mg tablet, sublingual 0.4 mg SL Q5-15M PRN (Reason: chest pain) ipratropium-albuterol 0.5 mg-3 mg(2.5 mg base)/3 mL solution for nebulization 3 ml inhalation QID PRN (Reason: shortness of breath or wheezing) 90 Days Qty: 270 3RF budesonide 0.5 mg/2 mL suspension for nebulization 0.5 mg inhalation Q12H Qty: 180 3RF Spiriva with HandiHaler 18 mcg capsule, w/inhalation device 1 cap inhalation DAILY 90 Days Qty: 90 3RF Rx Instructions: puncture 1 cap using device; one dose = 2 inhalations formoterol fumarate [Perforomist] 20 mcg/2 mL solution for nebulization 2 ml inhalation BID 90 Days Qty: 180 3RF Incruse Ellipta 62.5 mcg/actuation blister with device 1 inh inhalation DAILY 90 Days Qty: 90 3RF azithromycin 250 mg tablet 250 mg PO QMWF Qty: 45 3RF aspirin 81 MG tablet,delayed release (DR/EC) 81 mg PO HS polyethylene glycol 3350 17 GM powder in packet 17 gm PO Q48H PRN (Reason: Constipation) atorvastatin 40 MG tablet 40 mg PO HS fluoxetine 20 mg capsule 20 mg PO DAILY Label Comments: TAKE 1 CAPSULE 1 TIME EACH DAY esomeprazole magnesium 20 mg capsule,delayed release(DR/EC) 20 mg PO BID Label Comments: TAKE 1 CAPSULE 2 TIMES EACH DAY Activity Restrictions/Add. Instructions Additional Instructions/Restrictions: Your evaluation today for abdominal discomfort and your chronic shortness of breath did not reveal an emergent medical condition. There remains diagnostic uncertainty please return to the emergency department 12 to 24 hours if your symptoms persist otherwise follow-up with Dr. Willis within 48 hours. Clinical Impressions Clinical Impression: Nonspecific abdominal pain, Chronic dyspnea Discharge ED Provider: Ciaran Tsai General Adult HPI General Chief complaint: Shortness of Breath/Dyspnea Stated complaint: SOA Time Seen by Provider: 02/03/23 13:00 History of Present Illness HPI narrative: 72-year-old female presenting with abdominal pain epigastric discomfort and difficulty eating increasing shortness of breath. States she is chronically dyspneic has had mild cough no significant increase in wheezing but she is wheezing and shortness of breath at baseline on 3 L nasal cannula at home with COPD but states her primary complaint today is abdominal pain and abdominal discomfort and bloating and what she feels like it is the inability to get food through a chronic stricture . She states she is still having bowel movements and passing gas and her abdominal pain is diffuse in nature nothing making it better or worse she says the pain is severe. While she is somewhat concerned about her dyspnea her abdominal pain is what is bothering her the most. No urinary symptoms or changes in bowel habits. She is not vomiting and is able to tolerate her secretions and has been able to swallow. Related Data Home Medications Medication Instructions Recorded Confirmed aspirin 81 mg tablet,delayed 81 mg PO heart health 01/30/19 01/30/23 release clonazepam 0.5 mg tablet 0.5 mg PO TIDP PRN Anxiety 09/07/19 01/30/23 polyethylene glycol 3350 17 gram 17 gm PO Q48H PRN Consti
--- NOTE | 2023-02-03 13:02 | PC.NURSE ---
DR PEREIRA AT BEDSIDE
--- NOTE | 2023-02-03 13:05 | XR_ITS ---
FINAL REPORT CLINICAL HISTORY: dyspnea COMPARISON: 07/02/2022 FINDINGS: A single portable view of the chest was obtained. The heart size and pulmonary vascularity are within normal limits. The mediastinum is within normal limits. There is severe emphysema. There is mild scarring. There are several calcified granulomas in the right lung. The bony thorax is intact. IMPRESSION: Severe emphysema with mild pulmonary scarring. Several calcified granulomas in the right lung. Reviewed, Interpreted and Dictated by Yoshi Gutierrez III, MD Transcribed by Harini Fragoso Authenticated and [facility]
--- NOTE | 2023-02-03 13:05 | CT_ITS ---
FINAL REPORT CLINICAL HISTORY: diffuse abd pain COMPARISON: 08/08/2021 FINDINGS: CT OF THE ABDOMEN AND PELVIS WITH CONTRAST Axial CT images of the abdomen and pelvis were obtained after the administration of IV contrast. Coronal reformatted images were also obtained and reviewed.This study was performed with techniques to keep radiation doses as low as reasonably achievable (ALARA). Individualized dose reduction techniques using automated exposure control or adjustment of mA and/or kV according to the patient's size were employed. Abdomen: There is severe emphysema in the lung bases. The heart is normal in size. The liver has an unremarkable appearance, without evidence of mass or biliary ductal dilatation. The gallbladder surgically absent. The spleen is unremarkable. No adrenal mass is present. The pancreas has an unremarkable appearance. The kidneys are normal, without evidence of mass or hydronephrosis. The aorta is normal in caliber. There is no free fluid or adenopathy. No mass or abnormal fluid collection is seen. Pelvis: The appendix normal. There are postoperative changes from hysterectomy. The urinary bladder is unremarkable. No inflammatory process is seen. There is no evidence of mass or adenopathy. There are several sigmoid diverticula. There is no evidence of bowel obstruction. IMPRESSION: No evidence of acute intra-abdominal or intrapelvic process. Several sigmoid diverticula. Reviewed, Interpreted and Dictated by Yoshi Gutierrez III, MD Transcribed by Harini Fragoso Authenticated and [facility]
[2023-02-03 13:15] LABS: Chloride 99 mmol/L (98-107); Potassium 4.4 mmoL/L (3.5-5.1); Sodium 139 mmol/L (136-145)
[2023-02-03 13:18] LABS: Alanine Aminotransferase 21 U/L (12-78); Albumin Level 3.9 g/dl (3.5-5.0); Albumin/Globulin Ratio 1.6 (1.1-1.8); Alkaline Phosphatase 97 U/L (38-126); Anion Gap 9.4 mEq/L (5-15); Aspartate Amino Transferase 24 U/L (14-36); Bilirubin,Total 0.5 mg/dl (0.2-1.3); Blood Urea Nitrogen 20 mg/dl (7-17); Carbon Dioxide 35 mmol/L (22.0-30.0); Creatinine Clearance Estimated 49 mL/min (50-200); Estimated Glomerular Filt Rate 34 ml/min (>60); GFR (African American) 42 ML/MIN (>60); Globulin 2.4 g/dL (1.3-3.2); Lipase 64 U/L (23-300); Total Protein,Serum 6.3 g/dl (6.3-8.2)
[2023-02-03 13:19] LABS: Basophils # 0.1 K/mm3 (0-0.2); Basophils % 0.7 % (0.1-2.0); Calcium 9.1 mg/dl (8.4-10.2); Eosinophils # 0.5 K/mm3 (0.0-0.4); Eosinophils % 5.2 % (0.1-12.0); Glucose 95 mg/dl (74-100); Hematocrit 31.1 % (37.0-47.0); Hemoglobin 10.1 g/dL (12.2-16.2); Lymphocytes % 22.7 % (10-50); Mean Corpuscular HGB Conc 32.5 g/dL (31.8-35.4); Mean Corpuscular Hemoglobin 30.5 pg (27.0-31.2); Mean Corpuscular Volume 93.9 fl (81-99); Monocytes # 0.4 K/mm3 (0.1-1.0); Neutrophils # 5.7 K/mm3 (1.8-7.8); Neutrophils % 66.4 % (37.0-80.0); Platelet Count 264 K/mm3 (142-424); Red Blood Count 3.31 M/mm3 (4.20-5.40); Red Cell Distribution Width 14.1 % (11.5-17.5); White Blood Count 8.6 K/mm3 (4.8-10.8)
--- NOTE | 2023-02-03 13:23 | PC.NURSE ---
PT TO CT
[2023-02-03 13:28] LABS: NT Pro Brain Natriuretic Pep. 617 pg/mL (0-125)
[2023-02-03 13:30] LABS: Lactic Acid 0.9 mmol/L (0.7-2.1)
[2023-02-03 13:31] LABS: Troponin I < 0.01 ng/ml (0.00-0.034)
--- NOTE | 2023-02-03 13:38 | PC.NURSE ---
pt returned form ct
--- NOTE | 2023-02-03 13:49 | PC.NURSE ---
pt given drink of water
--- NOTE | 2023-02-03 13:54 | PC.NURSE ---
pt resting, adjusted bed for pt
[2023-02-03 14:00] VITALS: BP 131/68; PULSE 63; O2SAT 98
--- NOTE | 2023-02-03 14:27 | PC.NURSE ---
dr lopez at bedside to reevaluate pt
--- NOTE | 2023-02-03 14:34 | PC.NURSE ---
family at bedside
[2023-02-03 14:49] VITALS: BP 149/71; PULSE 58; RESP 18; TEMP 36.6; O2SAT 92
== END 2023-02-03 14:51 | disposition home or self-care (01) ==
PROVIDERS: Emergency Provider Student in an Organized Health Care Education/Training Program; PCP Internal Medicine Adolescent Medicine
DX: R10.84 Generalized abdominal pain (principal); R06.02 Shortness of breath; J44.9 Chronic obstructive pulmonary disease, unspecified; R14.0 Abdominal distension (gaseous); Z87.891 Personal history of nicotine dependence
CPT/HCPCS: 71045; 74177; 80053; 83605; 83690; 83880; 84484; 85025; 93005; 96374; 96375; 99285; J2405; Q9967

== ENCOUNTER 2023-04-11 11:31 | Day surgery (SDC) | payer MEDICARE, OTHER, SELFPAY ==
[2023-04-11 12:05] VITALS: BP 135/68; PULSE 55; RESP 18; TEMP 36.4; O2SAT 97
--- NOTE | 2023-04-11 12:21 | EXP.GEN.HP ---
HPI HPI HPI: Patient is a 72-year-old female from [place] with history of COPD (oxygen dependent), tobacco dependence, chronic kidney disease, non-STEMI, congestive heart failure, coronary artery disease, she has numerous stents and is on Plavix, syncope, chest pain, carotid artery stenosis, hypertension.? She is on multiple medications including Plavix, prednisone, Carafate, omeprazole.? She did undergo upper endoscopy on 04/09/[address] Daniel Corrales and he dilated cricopharyngeal spasm to 20 mm.? She had a 8mm duodenal adenomatous polyp, cricopharyngeal spasm, nonerosive GERD with moderate esophageal dysmotility, very small, 1 to 2 cm hiatal hernia, bile reflux linear reactive gastropathy.??I performed an upper endoscopy after referral from Dr. Salguero on 03/08/2022.? At that time EGD revealed the following findings: Cricopharyngeal spasm Esophageal dysmotility Spasm with mild narrowing at the gastroesophageal junction Small 2 to 3 mm sliding hiatal hernia Gastric fundic gland polyps Nonerosive linear gastropathy Dilatation was performed at the gastroesophageal junction to 20 mm.? Gastric biopsies revealed reactive gastropathy and fundic gland polyp.? Gastroesophageal junction biopsy revealed reactive changes. He was referred by Dr. Pina for possible EGD.? She has had some recurrent dysphagia symptoms.? She states that she often feels like food gets stuck at the lower substernal area and she has to regurgitate.? She does state that she has gained some weight as she stopped smoking. [facility] Disclaimer: The information contained in this section may have been updated after the patient was seen, as this information can be updated by other users. Medical History Acute exacerbation of CHF (congestive heart failure) Acute exacerbation of chronic obstructive airways disease Acute systolic CHF (congestive heart failure) Atypical chest pain Bradycardia Carotid artery stenosis Chronic hypoxemic respiratory failure CKD (chronic kidney disease) Congestive heart failure COPD (chronic obstructive pulmonary disease) Coronary atherosclerosis of [place] coronary artery Dysphagia Dyspnea on exertion Eosinophilia HLD (hyperlipidemia) Multiple pulmonary nodules NSTEMI (non-ST elevated myocardial infarction) Stopped smoking with greater than 30 pack year history Tobacco dependence Surgical History (Updated 02/27/23 @ 13:44 by JOHN Cisneros) History of colonoscopy History of esophagogastroduodenoscopy (EGD) History of lumpectomy No significant past surgical history Family History Other Cancer Family history of GERD Family history of arthritis Family history of hyperlipidemia Family history of hypertension Heart attack Social History (Updated 04/10/23 @ 09:28 by Lenore Wills RN) Smoking Status: Current every day smoker tobacco type: cigarettes packs per day: 1 second hand exposure: No alcohol intake: never substance use type: denies use 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al status: retired Travel in the last 8 weeks: None household members: spouse housing: house marital status: 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 [employer] 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al exposures/hazards: No caffeine: Yes Meds Home Medications and Allergies Home Medications Medication Instructions Recorded Confirmed Type aspirin 81 mg tablet,delayed 81 mg PO HS heart health 01/30/19 04/11/23 History release clonazepam 0.5 mg tablet 0.5 mg PO TIDP PRN Anxiety 09/07/19 04/11/23 History polyethylene glycol 3350 17 gram 17 gm PO Q48H PRN Constipation 12/13/21 04/11/23 History oral powder packet atorvastatin 40 mg tablet 40 mg PO HS Cholesterol 12/17/21 04/11/23 History cholecalciferol (vitamin D3) 25 25 mcg PO DAILY Supplement 04/25/22 04/11/23 History mcg (1,000 unit) capsule metoprolol succinate 25 mg 12.5 mg
[2023-04-11 12:41] VITALS: O2SAT 97
--- NOTE | 2023-04-11 12:58 | HMH.SCOPE ---
Procedure: Date: 04/11/23 Patient Date of :: 1950 Procedure Performed:: Esophagogastroduodenoscopy with biopsies Indications:: Patient is a 72-year-old female from [place] with history of COPD (oxygen dependent), tobacco dependence, chronic kidney disease, non-STEMI, congestive heart failure, coronary artery disease, she has numerous stents and is on Plavix, syncope, chest pain, carotid artery stenosis, hypertension.? She is on multiple medications including Plavix, prednisone, Carafate, omeprazole.? She did undergo upper endoscopy on 04/09/[address] Daniel Corrales and he dilated cricopharyngeal spasm to 20 mm.? She had a 8mm duodenal adenomatous polyp, cricopharyngeal spasm, nonerosive GERD with moderate esophageal dysmotility, very small, 1 to 2 cm hiatal hernia, bile reflux linear reactive gastropathy.??I performed an upper endoscopy after referral from Dr. Salguero on 03/08/2022.? At that time EGD revealed the following findings: Cricopharyngeal spasm Esophageal dysmotility Spasm with mild narrowing at the gastroesophageal junction Small 2 to 3 mm sliding hiatal hernia Gastric fundic gland polyps Nonerosive linear gastropathy Dilatation was performed at the gastroesophageal junction to 20 mm.? Gastric biopsies revealed reactive gastropathy and fundic gland polyp.? Gastroesophageal junction biopsy revealed reactive changes. He was referred by Dr. Pina for possible EGD.? She has had some recurrent dysphagia symptoms.? She states that she often feels like food gets stuck at the lower substernal area and she has to regurgitate.? She does state that she has gained some weight as she stopped smoking. Performing Provider:: Yoshi Márquez MD Referring Provider:: Manuelito Pina MD Sedation:: MAC sedation Procedure:: Patient history was obtained and appropriate physical examination was performed. Patient's medications and allergies were reviewed. Informed consent was obtained after explaining the benefits, alternatives, and risks of the procedure including, but not limited to, bleeding, perforation, missed lesions, and adverse reaction to anesthesia medications. Patient was transported to endoscopy procedure room. Patient was connected to monitoring devices. Throughout the procedure the patient's blood pressure, pulse, and oxygen saturations were monitored continuously. Patient identification and planned procedure were verified by the staff. Patient was positioned in lateral decubitus position. Olympus endoscope was inserted via the oropharynx. There was some cricopharyngeal spasm and possible narrowing. Esophagus was cannulated. There were findings suggestive of possible esophageal dysmotility. Gastroesophageal junction was encountered at approximately 40 cm from the incisors. There was no evidence of any spasm or narrowing amenable to dilatation. Stomach was cannulated and insufflated. Retroflexion revealed very tiny hiatal hernia. There is some diffuse gastropathy. Pylorus was traversed. Duodenum appeared unremarkable. Endoscope was withdrawn into the gastric lumen and gastric biopsy was obtained. A couple biopsies were obtained at the gastroesophageal junction and a couple of distal esophageal biopsies were obtained. Stomach was desufflated and the endoscope was withdrawn. Findings:: Cricopharyngeal spasm/narrowing Findings suggestive of esophageal dysmotility Gastroesophageal junction at 40 cm without luminal narrowing Mild diffuse gastropathy Recommendations:: Dysphagia possibly multifactorial with possible cricopharyngeal narrowing and esophageal dysmotility. Not amenable to dilatation with endoscopy at this time. Follow-up on biopsy results. Consideration may be given for possible modified barium evaluation. Complications:: None immediate Estimated blood obtained (mL): 1 Colonoscopy Component Colonoscopy Component Was a colonoscopy performed during today's procedure?: No
[2023-04-11 13:05] VITALS: BP 123/59; PULSE 51; RESP 18; TEMP 36.3; O2SAT 97
[2023-04-11 13:15] VITALS: BP 134/77; PULSE 49; RESP 18; O2SAT 98
[2023-04-11 13:25] VITALS: BP 147/62; PULSE 52; RESP 18; O2SAT 97
--- NOTE | 2023-04-11 17:01 | EXP.ANES.CKL ---
[facility] Disclaimer: The information contained in this section may have been updated after the patient was seen, as this information can be updated by other users. Medical History Acute exacerbation of CHF (congestive heart failure) Acute exacerbation of chronic obstructive airways disease Acute systolic CHF (congestive heart failure) Atypical chest pain Bradycardia Carotid artery stenosis Chronic hypoxemic respiratory failure CKD (chronic kidney disease) Congestive heart failure COPD (chronic obstructive pulmonary disease) Coronary atherosclerosis of [place] coronary artery Dysphagia Dyspnea on exertion Eosinophilia HLD (hyperlipidemia) Multiple pulmonary nodules NSTEMI (non-ST elevated myocardial infarction) Stopped smoking with greater than 30 pack year history Tobacco dependence Surgical History History of colonoscopy History of esophagogastroduodenoscopy (EGD) History of lumpectomy No significant past surgical history Family History Other Cancer Family history of GERD Family history of arthritis Family history of hyperlipidemia Family history of hypertension Heart attack Social History Smoking Status: Current every day smoker tobacco type: cigarettes packs per day: 1 second hand exposure: No alcohol intake: never substance use type: denies use 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al status: retired Travel in the last 8 weeks: None household members: spouse housing: house marital status: 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 [employer] 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al exposures/hazards: No caffeine: Yes [facility] Anesthesia Checklist Patient Identification Patient Identification: Arm Band and Family Structural Data Admitted From: Home Planned Operative Procedure/s: egd NPO Status Verified Time NPO: 00:00 Additional verifications Patient : No Anesthesia Reactions: No Hx Blood Transfusions: Yes Blood Transfusion Reaction: No Cephalosporin Allergy: No Previous Colonoscopy: Yes Airway Assessment C-Spine Mobility Assessed: Yes TMJ Mobility Assessed: Yes Dentition: Partials Neurological Assessment Level of Consciousness: Awake, Alert, Appropriate and Follows Commands Hx Seizures: No Numbness or tingling in extremities: No Anesthesia Plan Anesthesia Risk discussed: Yes ASA Class: II Anesthesia Type: MAC
== END 2023-04-11 13:25 | disposition home or self-care (01) ==
PROVIDERS: PCP Internal Medicine Adolescent Medicine; Visit Provider Surgery
PROC: 0DJ08ZZ Inspection of Upper Intestinal Tract, Via Natural or Artificial Opening Endoscopic (ICD-10-PCS; CPT 43235; principal; 2023-04-11 12:30)
DX: K31.89 Other diseases of stomach and duodenum (principal); R13.10 Dysphagia, unspecified; K31.7 Polyp of stomach and duodenum; J39.2 Other diseases of pharynx; K22.4 Dyskinesia of esophagus; K44.9 Diaphragmatic hernia without obstruction or gangrene
CPT/HCPCS: 43239; 88305

== ENCOUNTER 2023-06-18 11:56 | Emergency (ER) | payer MEDICARE, OTHER, SELFPAY ==
[2023-06-18] VITALS (9 sets, daily range): BP systolic 126–149; BP diastolic 49–84; PULSE 63–81; RESP 18–20; TEMP 36.6–36.8; O2SAT 95–100; BMI 26.4
--- NOTE | 2023-06-18 11:59 | ECG_ITS ---
APPROVED REPORT Exam: Resting ECG HR:82 bpm ECG Measurements Heart Rate 82 AXES NJ 150 P 65 QRSd 85 QRS 66 QT 352 T 78 QTc 391 Conclusion SINUS RHYTHM LOW QRS VOLTAGE [QRS DEFLECTION < 0.5/1.0 mV IN LIMB/CHEST LEADS] PATTERN CONSISTENT WITH PULMONARY DISEASE MODERATE ST DEPRESSION [0.05+ mV ST DEPRESSION] ABNORMAL ECG UNCONFIRMED REPORT Electronically signed by : Ephraim Lombardo MD 06/19/2023 06:42:50
--- NOTE | 2023-06-18 12:36 | PC.NURSE ---
Dr. Zeng at BS
--- NOTE | 2023-06-18 12:36 | XR_ITS ---
FINAL REPORT CLINICAL HISTORY: SOA COMPARISON: 02/03/2023 FINDINGS: SINGLE-VIEW CHEST The heart size is normal. The mediastinum is normal. There is a large calcified right paratracheal lymph node. The lungs are hyperinflated. There is chronic changes at the bases. There is no pneumothorax. IMPRESSION: No acute cardiopulmonary process. Reviewed, Interpreted and Dictated by Lopez Amaya MD Transcribed by Carrie Alexander Authenticated and [facility]
--- NOTE | 2023-06-18 12:42 | PC.NURSE ---
Spoke with Marlyn in Respiratory regarding VBG order.
--- NOTE | 2023-06-18 12:43 | HMH.EDGENADL ---
Discharge Plan Disposition Patient Disposition: Home, Self-Care Condition: Fair Prescriptions Prescriptions: No Action metoprolol succinate 25 mg tablet extended release 24 hr 12.5 mg PO HS Patient Comments: TAKE 1/2 TABLET ONCE A DAY. furosemide 40 mg tablet 20 mg PO DAILY Patient Comments: TAKE 1 TABLET 1 TIME EACH DAY albuterol sulfate 2.5 mg /3 mL (0.083 %) solution for nebulization 2.5 mg inhalation Q4H PRN (Reason: shortness of breath or wheezing) Qty: 75 2RF clonazepam 0.5 mg tablet 0.5 mg PO TIDP PRN (Reason: Anxiety) cholecalciferol (vitamin D3) 25 mcg (1,000 unit) capsule 25 mcg PO DAILY prednisone 10 mg tablet 10 mg PO MOWEFR nitroglycerin 0.4 mg tablet, sublingual 0.4 mg SL Q5-15M PRN (Reason: chest pain) Tudorza Pressair 400 mcg/actuation aerosol powdr breath activated 1 inh inhalation BID 90 Days Qty: 1 2RF aspirin 81 MG tablet,delayed release (DR/EC) 81 mg PO HS polyethylene glycol 3350 17 GM powder in packet 17 gm PO Q48H PRN (Reason: Constipation) atorvastatin 40 MG tablet 40 mg PO HS fluoxetine 20 mg capsule 20 mg PO DAILY Patient Comments: TAKE 1 CAPSULE 1 TIME EACH DAY esomeprazole magnesium 20 mg capsule,delayed release(DR/EC) 20 mg PO BID Patient Comments: TAKE 1 CAPSULE 2 TIMES EACH DAY azithromycin 250 mg tablet 250 mg PO QMWF budesonide 0.5 mg/2 mL suspension for nebulization 0.5 mg inhalation Q12H formoterol fumarate [Perforomist] 20 mcg/2 mL solution for nebulization 2 ml inhalation BID ipratropium-albuterol 0.5 mg-3 mg(2.5 mg base)/3 mL solution for nebulization 3 ml INHALATION QID Patient Comments: USE 3 ML IN NEBULIZER 4 TIMES DAILY NEEDED FOR SHORTNESS OF BREATH OR WHEEZING Referrals Follow up/Referrals: Ephraim Lombardo MD [Primary Care Provider] - See instructions Activity Restrictions/Add. Instructions Additional Instructions/Restrictions: Continue taking all home medications as prescribed. Use your albuterol inhaler 2 puffs every 4 hours for the next 24 hours. We did not identify any obvious cause of your symptoms today. You do have an elevated white blood cell count which is likely due to you having recently been on steroids. Please follow-up with your primary care physician in the next 2 days for reassessment. Return to the emergency department with new or worsening symptoms. Clinical Impressions Clinical Impression: COPD (chronic obstructive pulmonary disease) Qualifiers: COPD type: unspecified COPD Qualified Code(s): J44.9 - Chronic obstructive pulmonary disease, unspecified Fatigue Qualifiers: Fatigue type: chronic, unspecified Qualified Code(s): R53.82 - Chronic fatigue, unspecified Discharge ED Provider: Celina Zeng General Adult HPI General Chief complaint: Chest Pain Stated complaint: Chest Pain Time Seen by Provider: 06/18/23 12:37 Mode of Arrival: Wheelchair Source of Information: Patient Limitations: No Limitations Description of Symptoms (Recalled from ER Triage Doc. by RN): c/o chest pain, CALDERA, aches, nausea since yesterday. Point to the pain under her left breast/rib area, denies any radiation of pain. History of Present Illness HPI narrative: This 73-year-old female presents to the emergency department with concerns of shortness of breath, weakness, nausea but no vomiting. Patient has a history of COPD. Patient states she was having left lower rib pain but has no active pain. She states she recently completed antibiotics and steroids for recent COPD exacerbation. She states she is taking all home medications as previously prescribed. She says she went to a house warming constitution party recently and would like to be checked for COVID because she does not know if anyone was sick. She also endorses sore throat but no fevers. Patient states she normally wears 2 L nasal cannula but is having severe shortness of breath and is un
[2023-06-18 12:45] LABS: Basophils # 0.1 K/mm3 (0-0.2); Basophils % 0.3 % (0.1-2.0); Eosinophils # 0.7 K/mm3 (0.0-0.4); Eosinophils % 4.4 % (0.1-12.0); Hemoglobin 12.5 g/dL (12.2-16.2); Lymphocytes # 3.4 K/mm3 (0.7-4.5); Lymphocytes % 20.6 % (10-50); Mean Corpuscular HGB Conc 32.1 g/dL (31.8-35.4); Mean Corpuscular Hemoglobin 29.1 pg (27.0-31.2); Mean Corpuscular Volume 90.4 fl (81-99); Mean Platelet Volume 8.6 fl (7.4-10.4); Monocytes # 0.9 K/mm3 (0.1-1.0); Monocytes % 5.8 % (1.7-9.3); Neutrophils # 11.3 K/mm3 (1.8-7.8); Platelet Count 260 K/mm3 (142-424); Red Blood Count 4.32 M/mm3 (4.20-5.40); Red Cell Distribution Width 14.1 % (11.5-17.5); White Blood Count 16.3 K/mm3 (4.8-10.8)
--- NOTE | 2023-06-18 12:45 | CT_ITS ---
FINAL REPORT TECHNIQUE: Axial images were performed through the brain. This study was performed with techniques to keep radiation doses as low as reasonably achievable, (ALARA). Individualized dose reduction techniques using automated exposure control or adjustment of mA and/or kV according to the patient''s size were employed. CLINICAL HISTORY: CALDERA FINDINGS: There is mild atrophy. The ventricles are normal in size for the degree of atrophy. There is no extra-axial fluid or midline shift. There is no evidence of acute hemorrhage or mass. There is a defect in the medial wall of the right maxillary sinus. IMPRESSION: Mild atrophy. No acute intracranial process. Reviewed, Interpreted and Dictated by Lopez Amaya MD Transcribed by Carrie Alexander Authenticated and [facility]
[2023-06-18 12:47] LABS: VBG HCO3 30.2 mmol/L (23-30); VBG Oxygen Saturation 81.1 % (50-70); VBG PH 7.31 mmol/L (7.31-7.41); VBG PO2 54.8 mmol/L (28-40); VBG Total CO2 32.1 mmol/L (23-27)
[2023-06-18 12:48] LABS: Anion Gap 9.8 mEq/L (5-15); Blood Urea Nitrogen 31 mg/dl (7-17); Calcium 8.8 mg/dl (8.4-10.2); Carbon Dioxide 34 mmol/L (22.0-30.0); Chloride 102 mmol/L (98-107); Creatinine Clearance Estimated 54 mL/min (50-200); Estimated Glomerular Filt Rate 40 ml/min (>60); GFR (African American) 49 ML/MIN (>60); Glucose 100 mg/dl (74-100); MANUAL DIFFERENTIAL MANUAL DIFFERENTIAL (MANUAL DIFF); Potassium 3.8 mmoL/L (3.5-5.1); Sodium 142 mmol/L (136-145)
[2023-06-18 12:50] LABS: VBG PCO2 61.1 mmol/L (35-51)
--- NOTE | 2023-06-18 12:50 | PC.NURSE ---
aware of VBG results
[2023-06-18 13:06] LABS: Lymphocytes % 31 % (10-50); Monocytes % 5 % (2-9); Neutrophils % 64 % (42-76); Platelet Estimate Normal; RBC Morphology Normal; Total Cells Counted 100; Troponin I < 0.01 ng/ml (0.00-0.034)
[2023-06-18 13:06] LABS: Microscopic, Urine URINE MICROSCOPIC (MICROSCOPIC)
[2023-06-18 13:09] LABS: Appearance,Urine CLEAR (Clear); Bilirubin,Urine Negative (Negative); Blood, Urine Negative (Negative); Color,Urine YELLOW (Yellow); Glucose,Urine (UA) Negative (Negative); Ketones,Urine Negative (Negative); Leukocyte Esterase,Urine Negative (Negative); Nitrate,Urine Negative (Negative); Protein,Urine Negative (Negative); Specific Gravity, Urine 1.025 (1.005-1.030); Urobilinogen,Urine 0.2 EU/dl (0.2)
[2023-06-18 13:23] LABS: WBC,Urine Occasional #/hpf (0-3)
--- NOTE | 2023-06-18 14:06 | PC.NURSE ---
pt finished breathing treatment; trying to wean oxygen down back to home oxygen at this time (2L)
--- NOTE | 2023-06-18 14:41 | PC.NURSE ---
pt is resting in bed, call light at bs nothing needed at this time
[2023-06-18 15:05] LABS: Coronavirus 19, PCR Not Detected (NotDetected); Influenza A, PCR Not Detected (NotDetected); Influenza B, PCR Not Detected (NotDetected)
--- NOTE | 2023-06-18 15:43 | PC.NURSE ---
pt roxana taken out helped in wheelchair. wating for dishcarge paper
== END 2023-06-18 15:52 | disposition home or self-care (01) ==
PROVIDERS: Emergency Provider Emergency Medicine; PCP Internal Medicine Adolescent Medicine
DX: J44.1 Chronic obstructive pulmonary disease with (acute) exacerbation (principal); R53.82 Chronic fatigue, unspecified; R11.0 Nausea; J96.11 Chronic respiratory failure with hypoxia; I11.0 Hypertensive heart disease with heart failure; I50.21 Acute systolic (congestive) heart failure; N18.9 Chronic kidney disease, unspecified; E78.5 Hyperlipidemia, unspecified; I65.29 Occlusion and stenosis of unspecified carotid artery; Z87.891 Personal history of nicotine dependence
CPT/HCPCS: 70450; 71045; 80048; 81001; 82803; 84484; 85007; 85025; 87636; 93005; 96374; 99285; J2405

== ENCOUNTER 2023-06-24 17:36 | Observation (INO) | payer MEDICARE, OTHER, SELFPAY ==
[2023-06-24 18:52] VITALS: BMI 38.9
--- NOTE | 2023-06-24 18:55 | XR_ITS ---
PROCEDURE INFORMATION: Exam: XR Chest Exam date and time: 06/24/23 07:02 PM Age: 73 years old Clinical indication: Shortness of breath; Additional info: SOA TECHNIQUE: Imaging protocol: Radiologic exam of the chest. Views: 1 view. COMPARISON: CR XR CHEST PORTABLE 06/18/23 01:03 PM FINDINGS: Lungs: COPD changes. Calcified granuloma right upper lobe. Hyperexpanded lungs without infiltrate. Pleural spaces: Unremarkable. No pleural effusion. No pneumothorax. Heart/Mediastinum: Calcified right paratracheal lymph node. Bones/joints: Unremarkable. IMPRESSION: Hyperexpanded lungs without infiltrate.
[2023-06-24 19:58] LABS: Basophils % 0.3 % (0.1-2.0); Chloride 103 mmol/L (98-107); Eosinophils # 0.2 K/mm3 (0.0-0.4); Hematocrit 32.1 % (37.0-47.0); Hemoglobin 10.4 g/dL (12.2-16.2); Lymphocytes # 1.7 K/mm3 (0.7-4.5); Lymphocytes % 21.4 % (10-50); Mean Corpuscular HGB Conc 32.5 g/dL (31.8-35.4); Mean Corpuscular Volume 89.3 fl (81-99); Mean Platelet Volume 8.2 fl (7.4-10.4); Monocytes # 0.6 K/mm3 (0.1-1.0); Monocytes % 7.4 % (1.7-9.3); Neutrophils # 5.3 K/mm3 (1.8-7.8); Neutrophils % 67.9 % (37.0-80.0); Platelet Count 232 K/mm3 (142-424); Red Blood Count 3.59 M/mm3 (4.20-5.40); Sodium 141 mmol/L (136-145); White Blood Count 7.8 K/mm3 (4.8-10.8)
[2023-06-24 19:59] LABS: Potassium 4.3 mmoL/L (3.5-5.1)
[2023-06-24 20:00] VITALS: BP 138/46; PULSE 63; RESP 17; TEMP 36.4; O2SAT 94; O2SAT 99
[2023-06-24 20:01] LABS: Alanine Aminotransferase 22 U/L (12-78); Albumin Level 3.2 g/dl (3.5-5.0); Albumin/Globulin Ratio 1.3 (1.1-1.8); Alkaline Phosphatase 104 U/L (38-126); Anion Gap 10.3 mEq/L (5-15); Aspartate Amino Transferase 25 U/L (14-36); Bilirubin,Total 0.3 mg/dl (0.2-1.3); Blood Urea Nitrogen 18 mg/dl (7-17); Carbon Dioxide 32 mmol/L (22.0-30.0); Creatinine Clearance Estimated 45 mL/min (50-200); Estimated Glomerular Filt Rate 32 ml/min (>60); GFR (African American) 38 ML/MIN (>60); Globulin 2.4 g/dL (1.3-3.2); Total Protein,Serum 5.6 g/dl (6.3-8.2)
[2023-06-24 20:02] LABS: Calcium 8.7 mg/dl (8.4-10.2); Glucose 106 mg/dl (74-100)
--- NOTE | 2023-06-24 20:20 | ECG_ITS ---
APPROVED REPORT Exam: Resting ECG HR:66 bpm ECG Measurements Heart Rate 66 AXES OK 172 P 63 QRSd 86 QRS 50 QT 410 T 70 QTc 423 Conclusion SINUS RHYTHM WITH OCCASIONAL SUPRAVENTRICULAR PREMATURE COMPLEXES LOW QRS VOLTAGE [QRS DEFLECTION < 0.5/1.0 mV IN LIMB/CHEST LEADS] ABNORMAL ECG UNCONFIRMED REPORT Electronically signed by : Ephraim Lombardo MD 06/26/2023 18:42:17
[2023-06-24 21:48] VITALS: PULSE 77; PULSE 81
[2023-06-25 04:00] VITALS: BP 147/42; PULSE 57; RESP 17; TEMP 36.3; O2SAT 94; BMI 38.9
--- NOTE | 2023-06-25 04:27 | PC.NURSE ---
Patient rested well this shift. Complaints of pain treated per MAR with relief noted. Patient remains on 2L o2 with sats above 90%. All other vitals WNL. Call junior and personal items in reach POC ongoing.
[2023-06-25 05:20] LABS: Microscopic, Urine URINE MICROSCOPIC (MICROSCOPIC)
[2023-06-25 05:21] LABS: Appearance,Urine CLEAR (Clear); Bilirubin,Urine Negative (Negative); Blood, Urine Negative (Negative); Color,Urine YELLOW (Yellow); Glucose,Urine (UA) Negative (Negative); Ketones,Urine Negative (Negative); Leukocyte Esterase,Urine Negative (Negative); Nitrate,Urine Negative (Negative); PH,Urine 6.5 (5.0-8.5); Protein,Urine Negative (Negative); Specific Gravity, Urine 1.015 (1.005-1.030); Urobilinogen,Urine 0.2 EU/dl (0.2)
[2023-06-25 05:50] VITALS: PULSE 55; PULSE 59; O2SAT 97
[2023-06-25 06:22] LABS: Bacteria,Urine 1+ /lpf
[2023-06-25 07:16] LABS: Basophils % 0.2 % (0.1-2.0); Eosinophils # 0.2 K/mm3 (0.0-0.4); Eosinophils % 3.7 % (0.1-12.0); Hemoglobin 9.9 g/dL (12.2-16.2); Lymphocytes # 2.2 K/mm3 (0.7-4.5); Lymphocytes % 33.8 % (10-50); Mean Corpuscular HGB Conc 31.8 g/dL (31.8-35.4); Mean Corpuscular Hemoglobin 28.8 pg (27.0-31.2); Mean Corpuscular Volume 90.7 fl (81-99); Mean Platelet Volume 8.2 fl (7.4-10.4); Monocytes # 0.4 K/mm3 (0.1-1.0); Neutrophils # 3.6 K/mm3 (1.8-7.8); Neutrophils % 56.3 % (37.0-80.0); Platelet Count 187 K/mm3 (142-424); Red Blood Count 3.42 M/mm3 (4.20-5.40); Red Cell Distribution Width 13.9 % (11.5-17.5); White Blood Count 6.4 K/mm3 (4.8-10.8)
[2023-06-25 07:19] LABS: Anion Gap 8.1 mEq/L (5-15); Blood Urea Nitrogen 17 mg/dl (7-17); Calcium 8.2 mg/dl (8.4-10.2); Carbon Dioxide 33 mmol/L (22.0-30.0); Chloride 104 mmol/L (98-107); Creatinine Clearance Estimated 59 mL/min (50-200); Estimated Glomerular Filt Rate 44 ml/min (>60); GFR (African American) 54 ML/MIN (>60); Glucose 87 mg/dl (74-100); Potassium 4.1 mmoL/L (3.5-5.1); Sodium 141 mmol/L (136-145)
--- NOTE | 2023-06-25 07:23 | HMH.PHAINT1 ---
Pharmacy Intervention Comments: Medication history complete, medications verified with fill history and patient. - Brittany So, PharmD Candidate 2023
--- NOTE | 2023-06-25 07:38 | EXP.HPDC ---
General Admission date:: 06/24/23 Discharge date: 06/25/23 *Admission Date: 06/24/23 *Chief complaint: Weakness, fatigue, generalized pain *History of present illness: 73-year-old with end-stage COPD and frequent bouts of dysuria and dyspepsia came to my office for the second time in 5 days with chief complaints of fatigue, urinating with some pain and some nausea with poor p.o. intake. In the office she was found to have relatively low blood pressures in the low 100s systolic, be tired, tachycardic and urine showed leukocyte Estrace. Given failure of outpatient treatment of cystitis and her significant oxygen requirements and mildly abnormal vital signs she was admitted to the hospital for IV fluids and further diagnostic testing. [facility] Disclaimer: The information contained in this section may have been updated after the patient was seen, as this information can be updated by other users. Medical History Acute exacerbation of CHF (congestive heart failure) Acute exacerbation of chronic obstructive airways disease Acute systolic CHF (congestive heart failure) Atypical chest pain Bradycardia Carotid artery stenosis Chronic hypoxemic respiratory failure CKD (chronic kidney disease) Congestive heart failure COPD (chronic obstructive pulmonary disease) Coronary atherosclerosis of [place] coronary artery Dysphagia Dyspnea on exertion Eosinophilia HLD (hyperlipidemia) Multiple pulmonary nodules NSTEMI (non-ST elevated myocardial infarction) Stopped smoking with greater than 30 pack year history Tobacco dependence Surgical History History of colonoscopy History of esophagogastroduodenoscopy (EGD) History of lumpectomy No significant past surgical history Family History Other Cancer Family history of GERD Family history of arthritis Family history of hyperlipidemia Family history of hypertension Heart attack Social History (Updated 06/24/23 @ 18:12 by Deisy Pathak RN) Smoking Status: Former smoker pack-years: 53 second hand exposure: No alcohol intake: never substance use type: denies use 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al status: retired Travel in the last 8 weeks: None household members: spouse housing: house marital status: 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al exposures/hazards: No caffeine: Yes Review of Systems Review of Systems Review of systems:: pertinent systems reviewed and negative unless documented below Exam Data for Last 24 hours Vital signs and Labs for Last 24 Hours: Temp Pulse Resp BP Pulse Ox O2 Del Method O2 Flow Rate 97.4 F L 55 L 17 147/42 H 97 Nasal Cannula 2 06/25/23 04:00 06/25/23 05:50 06/25/23 04:00 06/25/23 04:00 06/25/23 05:50 06/25/23 06:37 06/25/23 06:37 FiO2 28 06/24/23 21:49 Laboratory Results - last 24 hr 06/24/23 19:19: WBC 7.8, RBC 3.59 L, Hgb 10.4 L, Hct 32.1 L, MCV 89.3, MCH 29.0, MCHC 32.5, RDW 14.0, Plt Count 232, MPV 8.2, Neut % (Auto) 67.9, Lymph % (Auto) 21.4, [place] % (Auto) 7.4, Eos % (Auto) 3.0, Baso % (Auto) 0.3, Neut # (Auto) 5.3, Lymph # (Auto) 1.7, [place] # (Auto) 0.6, Eos # (Auto) 0.2, Baso # (Auto) 0.0, Sodium 141, Potassium 4.3, Chloride 103, Carbon Dioxide 32 H, Anion Gap 10.3, BUN 18 H, Creatinine 1.60 H, Estimated Creat Clear 45, Estimated GFR 32 L, Est GFR ( Amer) 38 L, Glucose 106 H, Calcium 8.7, Total Bilirubin 0.3, AST 25, ALT 22, Alkaline Phosphatase 104, Total Protein 5.6 L, Albumin 3.2 L, Globulin 2.4, Albumin/Globulin Ratio 1.3 06/25/23 04:00: Urine Color Yellow, Urine Appearance Clear, Urine pH 6.5, Ur Specific [place] 1.015, Urine Protein Negative, Urine Glucose (UA) Negative, Urine Ketones Negative, Urine Blood Negative, Urine Nitrate Negative, Urine Bilirubin Negative, Urine Urobilinogen 0.2, Ur
[2023-06-25 07:58] VITALS: BP 140/64; PULSE 60; RESP 17; TEMP 36.6; O2SAT 97
[2023-06-25 08:00] VITALS: O2SAT 97
[2023-06-25 10:04] VITALS: PULSE 82; PULSE 87
--- NOTE | 2023-06-25 10:36 | HMH.PTEV ---
Physical Therapy Evaluation Rehab PT IP Evaluation Start: 06/24/23 21:31 Freq: ONCE Status: Active Protocol: Document 06/25/23 10:33 WATSON (Rec: 06/25/23 10:36 WATSON [id number]) Subjective/History History History 73 yowf adm to [facility] with UTI and COPD exac. She reports she lives with her , 1 step to enter the home and she is generally independent with all mobility at baseline. Subjective Subjective She reports feeling much better thsi am. Rehab PT IP Eval Objective Appearance Patient Behavior Appropriate Patient Orientation Person,Place,Time Difficulty following instructions none Ambulation Patient Able to Ambulate Yes Ambulation Observation IP General Gait Pattern Observation No Deviations/Normal Ambulation Distance (feet) 20 Ambulation Assistive Device None Balance Ability to Arise Able, uses arms to help Sitting Balance Steady, safe Standing Balance Steady, wide stance Dynamic Sitting Balance Ability Good Dynamic Standing Balance Ability Good Transfers Bed Transfer Ability Independent Chair Transfer Ability Independent Sit to Stand Bed Transfer Ability Independent Sit to Stand Chair Transfer Ability Independent ROM All Extremities PT ROM Status WFL MMT All Extremities PT MMT WFL Rehab PT IP prob,goals,plan Problems Date of Evaluation: 06/25/23 Discharge Plan PT Discharge Plan Pt is appropriate to return home once medically stable for d/c. G -code Required No Eval Complexity Eval Charge Codes 81829 - High Complexity PHYSICIAN CERTIFICATION: I certify the specified therapy services for Shayy Black are required, authorized, and reviewed every 30 days.
--- NOTE | 2023-06-25 11:33 | HMH.OTEV ---
OT Inpatient Evaluation Rehab OT IP Evaluation Start: 06/24/23 21:31 Freq: ONCE Status: Discharge Protocol: Document 06/25/23 11:30 AMBREEN (Rec: 06/25/23 11:[address] [id number] Rehab OT IP Assessment Subjective History Pt oriented x 4 on arrival. Pt agreeable to engage in therapy evaluation. Pt is a 73 yowf adm to [facility] with UTI and COPD exac. She reports she lives with her , 1 step to enter the home and she is generally independent with all mobility at baseline. Pt also reports she is independent with all ADLs and IADLs. She still drives and does wear oxygen at all times. Subjective I am ready to go home. Objective Patient Orientation Person,Place,Birthday,Month Upper Extremity Gross ROM WFL Bed Mobility bed mobility-scooting,bed mobility - supine/sit,bed mobility - rolling Assist Level Supervision/Stand by Transfer Training Sit/Stand Transfer Assist Level Supervision/Stand by Lower Body Dressing Ability Standby Assistance Upper Body Dressing Ability Standby Assistance Performing Toilet Hygiene Ability Standby Assistance Overall Commode/Toilet Transfer Ability Standby Assistance Commode/Toilet Transfer Technique Sit to/from Ambulatory Rehab OT IP prob,goals,plan Problems Date of Evaluation: 06/25/23 Rehab Potential Rehab Potential Innapropriate for Skilled Therapy Discharge Plan OT Discharge Plan Pt appears to be at her baseline with functional transfers and ADL independence . Pt can return home with once medically stable per physician. Eval Complexity Eval Charge Codes 20199 - Low Complexity G Codes G -code Required No PHYSICIAN CERTIFICATION: I certify the specified therapy services for Shayy Black are required, authorized, and reviewed every 30 days.
--- NOTE | 2023-06-26 13:36 | CARE MANAGER ---
Spoke with patient for post-discharge phone interview, no issues noted.
== END 2023-06-25 10:56 | disposition home or self-care (01) ==
PROVIDERS: Admitting Provider Internal Medicine Adolescent Medicine; PCP Internal Medicine Adolescent Medicine; Visit Provider Internal Medicine Adolescent Medicine
DX: N39.0 Urinary tract infection, site not specified (principal); I25.10 Atherosclerotic heart disease of native coronary artery without angina pectoris; E78.5 Hyperlipidemia, unspecified; J96.10 Chronic respiratory failure, unspecified whether with hypoxia or hypercapnia; J44.9 Chronic obstructive pulmonary disease, unspecified; I25.2 Old myocardial infarction; N18.9 Chronic kidney disease, unspecified; Z87.891 Personal history of nicotine dependence
CPT/HCPCS: 36415; 71045; 80048; 80053; 81001; 85025; 87040; 87086; 93005; 94640; 94760; 97163; 97165; G0378; J0696

== ENCOUNTER 2023-07-06 17:54 | Emergency (ER) | payer MEDICARE, OTHER, SELFPAY ==
[2023-07-06] VITALS (8 sets, daily range): BP systolic 91–143; BP diastolic 49–112; PULSE 55–83; RESP 18–24; TEMP 36.7; O2SAT 92–100; BMI 27.2
--- NOTE | 2023-07-06 18:25 | XR_ITS ---
PROCEDURE INFORMATION: Exam: XR Chest Exam date and time: 07/06/2023 6:24 PM Age: 73 years old Clinical indication: Chest wall pain and right-sided; Additional info: SOA TECHNIQUE: Imaging protocol: Radiologic exam of the chest. Views: 1 view. COMPARISON: CR XR CHEST PORTABLE 06/24/2023 7:02 PM FINDINGS: Lungs: Subsegmental atelectasis left lung base. Densely calcified right hilar lymph node . Calcified granulomas again demonstrated in the right upper lobe. Persistent changes of chronic obstructive pulmonary disease. Pleural spaces: Unremarkable. No pleural effusion. No pneumothorax. Heart/Mediastinum: Unremarkable. No cardiomegaly. Bones/joints: Unremarkable. IMPRESSION: No evidence of acute cardiopulmonary disease.
[2023-07-06 18:32] LABS: Basophils # 0.1 K/mm3 (0-0.2); Basophils % 0.4 % (0.1-2.0); Eosinophils # 0.6 K/mm3 (0.0-0.4); Eosinophils % 4.3 % (0.1-12.0); Hematocrit 37.7 % (37.0-47.0); Lymphocytes # 2.8 K/mm3 (0.7-4.5); Lymphocytes % 21.6 % (10-50); Mean Corpuscular HGB Conc 31.9 g/dL (31.8-35.4); Mean Corpuscular Hemoglobin 28.7 pg (27.0-31.2); Mean Corpuscular Volume 90.2 fl (81-99); Mean Platelet Volume 8.7 fl (7.4-10.4); Monocytes # 0.7 K/mm3 (0.1-1.0); Monocytes % 5.2 % (1.7-9.3); Neutrophils # 8.8 K/mm3 (1.8-7.8); Neutrophils % 68.5 % (37.0-80.0); Platelet Count 387 K/mm3 (142-424); Red Blood Count 4.18 M/mm3 (4.20-5.40); White Blood Count 12.8 K/mm3 (4.8-10.8)
[2023-07-06 18:33] LABS: Chloride 101 mmol/L (98-107); Sodium 143 mmol/L (136-145)
[2023-07-06 18:36] LABS: Alanine Aminotransferase 27 U/L (12-78); Albumin Level 3.8 g/dl (3.5-5.0); Albumin/Globulin Ratio 1.3 (1.1-1.8); Alkaline Phosphatase 152 U/L (38-126); Aspartate Amino Transferase 32 U/L (14-36); Bilirubin,Total 0.4 mg/dl (0.2-1.3); Blood Urea Nitrogen 21 mg/dl (7-17); Carbon Dioxide 34 mmol/L (22.0-30.0); Creatinine Clearance Estimated 37 mL/min (50-200); Estimated Glomerular Filt Rate 26 ml/min (>60); GFR (African American) 32 ML/MIN (>60); Total Protein,Serum 6.8 g/dl (6.3-8.2)
[2023-07-06 18:37] LABS: Calcium 9.5 mg/dl (8.4-10.2); Glucose 141 mg/dl (74-100)
[2023-07-06 18:54] LABS: Troponin I < 0.01 ng/ml (0.00-0.034)
[2023-07-06 18:58] LABS: Lactic Acid 1.7 mmol/L (0.7-2.1)
--- NOTE | 2023-07-06 19:07 | CT_ITS ---
PROCEDURE INFORMATION: Exam: CTA Chest With Contrast Exam date and time: 07/06/2023 7:28 PM Age: 73 years old Clinical indication: Pain; Chest pressure; Additional info: SOA, right chest pain TECHNIQUE: Imaging protocol: Computed tomographic angiography of the chest with contrast. Exam focused on the arteries. 3D rendering (Not supervised by radiologist): MIP and/or 3D reconstructed images were created by the technologist. Radiation optimization: All CT scans at this facility use at least one of these dose optimization techniques: automated exposure control; mA and/or kV adjustment per patient size (includes targeted exams where dose is matched to clinical indication); or iterative reconstruction. Contrast material: ISOVUE; Contrast volume: 70 ml; Contrast route: INTRAVENOUS (IV); REPORTING DATA: Count of CT and Cardiac NM exams in prior 12 months: This patient has received 3 known CTs and 0 known cardiac nuclear medicine studies in the 12 months prior to the current study. COMPARISON: CT ANGIO CHEST PE PROTOCOL 12/13/2021 6:24 AM FINDINGS: Pulmonary arteries: Normal. No pulmonary emboli. Aorta: There is atherosclerotic disease of the visualized aorta and its major branch vessels. Lungs: There are scattered areas of emphysema throughout the lungs. There is significant bullous disease of the lung apices. Calcified granulomas of the right apex. Pleural spaces: Unremarkable. No pneumothorax. No pleural effusion. Heart: Unremarkable. No cardiomegaly. No pericardial effusion. Coronary arteries: There is moderate coronary atherosclerotic disease/calcification. Lymph nodes: Unremarkable. No enlarged lymph nodes. Gallbladder and bile ducts: The patient is status post cholecystectomy. Spleen: There are multiple calcifications in the spleen most likely reflects small granulomas. Bones/joints: There is diffuse degenerative disease of the visualized osseous structures. Soft tissues: Unremarkable. IMPRESSION: 1. No evidence for clinically relevant pulmonary arterial filling defect, dense parenchymal consolidation, pleural effusion, or pneumothorax. No acute intrathoracic anomaly. 2. Severe emphysema with advanced bullous disease of the lung apices. COMMENTS: In the absence of a history or active diagnosis of lung cancer, it is recommended that this patient with emphysema be evaluated for enrollment in a low dose CT lung cancer screening program.
--- NOTE | 2023-07-06 19:36 | HMH.EDGENADL ---
Discharge Plan Disposition Patient Disposition: Home, Self-Care Chief Complaint: Shortness of Breath/Dyspnea Prescriptions Prescriptions: No Action metoprolol succinate 25 mg tablet extended release 24 hr 12.5 mg PO HS Patient Comments: TAKE 1/2 TABLET ONCE A DAY. furosemide 40 mg tablet 20 mg PO DAILY Patient Comments: TAKE 1 TABLET 1 TIME EACH DAY clonazepam 0.5 mg tablet 0.5 mg PO TIDP PRN (Reason: Anxiety) cholecalciferol (vitamin D3) 25 mcg (1,000 unit) capsule 25 mcg PO DAILY nitroglycerin 0.4 mg tablet, sublingual 0.4 mg SL Q5-15M PRN (Reason: chest pain) aspirin 81 MG tablet,delayed release (DR/EC) 81 mg PO HS polyethylene glycol 3350 17 GM powder in packet 17 gm PO Q48H PRN (Reason: Constipation) azithromycin 250 mg tablet See Rx Instructions .ROUTE .COMPLEX Patient Comments: TAKE 1 TABLET 1 TIME EACH DAY ON FRIDAY, FRIDAY AND FRIDAY Rx Instructions: 250 mg orally on Friday, Friday and Friday Spiriva Respimat 2.5 mcg/actuation Mist 2 puff INHALATION DAILY cefdinir 300 mg capsule 300 mg PO BID Qty: 14 0RF atorvastatin 40 MG tablet 40 mg PO HS fluoxetine 20 mg capsule 20 mg PO DAILY Patient Comments: TAKE 1 CAPSULE 1 TIME EACH DAY esomeprazole magnesium 20 mg capsule,delayed release(DR/EC) 20 mg PO BID Patient Comments: TAKE 1 CAPSULE 2 TIMES EACH DAY budesonide 0.5 mg/2 mL suspension for nebulization 0.5 mg inhalation Q12H formoterol fumarate [Perforomist] 20 mcg/2 mL solution for nebulization 2 ml inhalation BID ipratropium-albuterol 0.5 mg-3 mg(2.5 mg base)/3 mL solution for nebulization 3 ml INHALATION QID Patient Comments: USE 3 ML IN NEBULIZER 4 TIMES DAILY NEEDED FOR SHORTNESS OF BREATH OR WHEEZING Referrals Follow up/Referrals: Ephraim Lombardo MD [Primary Care Provider] - See instructions Activity Restrictions/Add. Instructions Additional Instructions/Restrictions: Call your family doctor to establish care for this visit to the emergency department and schedule follow-up within 48 hours to ensure improvement. If you have any worsening of your condition or any other concerning signs or symptoms, return to the emergency department or your primary care doctor for further evaluation. Clinical Impressions Clinical Impression: Acute pleurisy without pleural effusion Discharge ED Provider: Young Philippe General Adult HPI General Chief complaint: Shortness of Breath/Dyspnea Stated complaint: Chest Pain Time Seen by Provider: 07/06/23 18:41 Mode of Arrival: Wheelchair Source of Information: Patient Limitations: No Limitations Description of Symptoms (Recalled from ER Triage Doc. by RN): pt complains of right side rib and chest pain/SOA that started abruptly today and PCP is conerned for a blood clot. pt normally wears 2L of O2 at home but had to turn it up there to 3. pt denies any fever. History of Present Illness HPI narrative: 73-year-old female with history of hypertension, hyperlipidemia, CAD status post stenting, COPD on 2 L nasal cannula at home, CKD, spontaneous pneumothorax in the past presenting with shortness of breath and rib pain. Patient states that it started acutely before arrival around lunchtime. Patient called family doctor who recommended she turn her oxygen up to see if it helps. Patient still in pain, so came to the ER out of concern for blood clot, per her family doctor. Denies hemoptysis, history of clots, current anticoagulation use, nausea or vomiting. chest pain is 10 out of 10, located on the right anterolateral chest, does not radiate. Not positional Related Data Home Medications Medication Instructions Recorded Confirmed aspirin 81 mg tablet,delayed 81 mg PO heart health 01/30/19 06/25/23 release clonazepam 0.5 mg tablet 0.5 mg PO TIDP PRN Anxiety 09/07/19 06/24/23 polyethylene glycol 3350 17 gram 17 gm P
--- NOTE | 2023-07-06 19:40 | ECG_ITS ---
APPROVED REPORT Exam: Resting ECG HR:69 bpm ECG Measurements Heart Rate 69 AXES QRSd 89 QRS 74 QT 359 T 67 QTc 379 Conclusion SINUS RHYTHM WITH HIGH GRADE AV BLOCK LOW QRS VOLTAGE IN PRECORDIAL LEADS [QRS DEFLECTION < 1.0 mV IN CHEST LEADS] MODERATE ST DEPRESSION [0.05+ mV ST DEPRESSION] CRITICAL TEST RESULT UNCONFIRMED REPORT Electronically signed by : Ephraim Lombardo MD 07/07/2023 07:10:40
[2023-07-06 20:10] LABS: NT Pro Brain Natriuretic Pep. 501 pg/mL (0-125)
--- NOTE | 2023-07-06 20:10 | PC.NURSE ---
rounded on patient, feeling much better, family @ bedside, no other needs at this time
--- NOTE | 2023-07-06 20:34 | PC.NURSE ---
pt is ready for re eval and states her pain has come down from a 10/10 to a 5/10
[2023-07-06 21:47] LABS: Troponin I < 0.01 ng/ml (0.00-0.034)
--- NOTE | 2023-07-06 21:48 | PC.NURSE ---
pt is ready for re eval
== END 2023-07-06 22:19 | disposition home or self-care (01) ==
PROVIDERS: Emergency Provider Emergency Medicine; PCP Internal Medicine Adolescent Medicine
DX: R07.9 Chest pain, unspecified (principal); I44.0 Atrioventricular block, first degree; J44.9 Chronic obstructive pulmonary disease, unspecified; I25.10 Atherosclerotic heart disease of native coronary artery without angina pectoris; I13.0 Hypertensive heart and chronic kidney disease with heart failure and stage 1 through stage 4 chronic kidney disease, or unspecified chronic kidney disease; N18.9 Chronic kidney disease, unspecified; E78.5 Hyperlipidemia, unspecified; I50.20 Unspecified systolic (congestive) heart failure; I65.29 Occlusion and stenosis of unspecified carotid artery; J96.11 Chronic respiratory failure with hypoxia; I25.2 Old myocardial infarction
CPT/HCPCS: 71045; 71275; 80053; 83605; 83880; 84484; 85025; 93005; 96374; 96375; 99285; J0131; Q9967

== ENCOUNTER 2023-07-22 12:25 | Outpatient (CLI) | payer MEDICARE, OTHER, SELFPAY ==
[2023-07-22 12:31] VITALS: BMI 27.3
--- NOTE | 2023-07-22 12:32 | XR_ITS ---
FINAL REPORT CLINICAL HISTORY: copd exacerbation COMPARISON: 07/06/2023 FINDINGS: A single PA view of the chest was obtained. The cardiac and mediastinal silhouettes are within normal limits. There is emphysema. There is evidence of granulomatous disease. There is a new right perihilar opacity, favor atelectasis. There is no effusion or pneumothorax. IMPRESSION: New right perihilar opacity, favor atelectasis. Reviewed, Interpreted and Dictated by Shanae Melvin MD Transcribed by Carrie Alexander Authenticated and [facility]
[2023-07-22 12:50] VITALS: BP 145/60; PULSE 78; RESP 20; TEMP 36.7; O2SAT 94
[2023-07-22 13:07] LABS: Basophils % 0.3 % (0.1-2.0); Eosinophils # 0.3 K/mm3 (0.0-0.4); Eosinophils % 2.6 % (0.1-12.0); Hematocrit 32.6 % (37.0-47.0); Lymphocytes # 1.9 K/mm3 (0.7-4.5); Lymphocytes % 18.4 % (10-50); Mean Corpuscular HGB Conc 30.8 g/dL (31.8-35.4); Mean Corpuscular Hemoglobin 27.8 pg (27.0-31.2); Mean Corpuscular Volume 90.3 fl (81-99); Mean Platelet Volume 9.2 fl (7.4-10.4); Monocytes # 0.4 K/mm3 (0.1-1.0); Monocytes % 4.2 % (1.7-9.3); Neutrophils # 7.7 K/mm3 (1.8-7.8); Neutrophils % 74.5 % (37.0-80.0); Platelet Count 280 K/mm3 (142-424); Red Blood Count 3.61 M/mm3 (4.20-5.40); White Blood Count 10.4 K/mm3 (4.8-10.8)
[2023-07-22 13:24] LABS: Anion Gap 10.4 mEq/L (5-15); Blood Urea Nitrogen 21 mg/dl (7-17); Calcium 8.6 mg/dl (8.4-10.2); Carbon Dioxide 36 mmol/L (22.0-30.0); Chloride 99 mmol/L (98-107); Creatinine Clearance Estimated 64 mL/min (50-200); Estimated Glomerular Filt Rate 49 ml/min (>60); GFR (African American) 59 ML/MIN (>60); Glucose 100 mg/dl (74-100); Potassium 3.4 mmoL/L (3.5-5.1); Sodium 142 mmol/L (136-145)
[2023-07-22 13:30] VITALS: BP 135/65; PULSE 68; RESP 20; TEMP 36.9; O2SAT 92
[2023-07-22 14:00] VITALS: BP 142/78; PULSE 78; RESP 20
== END 2023-07-22 14:00 | disposition home or self-care (01) ==
LOC: INF 12:26
PROVIDERS: PCP Internal Medicine Adolescent Medicine; Visit Provider Internal Medicine Adolescent Medicine
DX: J44.1 Chronic obstructive pulmonary disease with (acute) exacerbation (principal); R11.2 Nausea with vomiting, unspecified
CPT/HCPCS: 36415; 71045; 80048; 85025; 96360; 96367; 96374; 96375; J0696

== ENCOUNTER 2023-09-30 11:57 | Outpatient (CLI) | payer MEDICARE, OTHER, SELFPAY ==
[2023-09-30 12:00] VITALS: BMI 25.4
[2023-09-30 12:30] VITALS: BP 152/78; PULSE 61; RESP 18; TEMP 36.3; O2SAT 100
[2023-09-30 12:30] LABS: Basophils % 0.2 % (0.1-2.0); Eosinophils # 0.1 K/mm3 (0.0-0.4); Eosinophils % 0.3 % (0.1-12.0); Hematocrit 35.8 % (37.0-47.0); Hemoglobin 11.9 g/dL (12.2-16.2); Mean Corpuscular HGB Conc 33.3 g/dL (31.8-35.4); Mean Corpuscular Hemoglobin 29.9 pg (27.0-31.2); Mean Corpuscular Volume 89.9 fl (81-99); Mean Platelet Volume 8.9 fl (7.4-10.4); Monocytes # 0.5 K/mm3 (0.1-1.0); Monocytes % 3.1 % (1.7-9.3); Neutrophils # 14.5 K/mm3 (1.8-7.8); Neutrophils % 90.3 % (37.0-80.0); Platelet Count 318 K/mm3 (142-424); Red Blood Count 3.99 M/mm3 (4.20-5.40); Red Cell Distribution Width 14.1 % (11.5-17.5); White Blood Count 16.1 K/mm3 (4.8-10.8)
[2023-09-30 12:32] LABS: MANUAL DIFFERENTIAL MANUAL DIFFERENTIAL (MANUAL DIFF)
[2023-09-30 12:41] LABS: Alanine Aminotransferase 25 U/L (12-78); Alkaline Phosphatase 107 U/L (38-126); Aspartate Amino Transferase 31 U/L (14-36); Bilirubin,Total 0.3 mg/dl (0.2-1.3); Blood Urea Nitrogen 24 mg/dl (7-17); Chloride 95 mmol/L (98-107); Creatinine Clearance Estimated 50 mL/min (50-200); Estimated Glomerular Filt Rate 40 ml/min (>60); GFR (African American) 49 ML/MIN (>60)
[2023-09-30 12:43] LABS: Albumin/Globulin Ratio 1.4 (1.1-1.8); Calcium 8.6 mg/dl (8.4-10.2); Globulin 2.9 g/dL (1.3-3.2); Glucose 112 mg/dl (74-100); Potassium 3.2 mmoL/L (3.5-5.1); Sodium 137 mmol/L (136-145); Total Protein,Serum 6.9 g/dl (6.3-8.2)
[2023-09-30 12:49] LABS: Anion Gap 10.2 mEq/L (5-15); Carbon Dioxide 35 mmol/L (22.0-30.0)
[2023-09-30 13:05] LABS: Eosinophils % 1 % (0-3); Lymphocytes % 9 % (10-50); Monocytes % 2 % (2-9); Neutrophils % 88 % (42-76); Platelet Estimate Normal; RBC Morphology Normal; Total Cells Counted 100
[2023-09-30 13:30] VITALS: BP 148/79; PULSE 65; RESP 18; O2SAT 100
[2023-09-30 14:30] VITALS: BP 142/69; PULSE 66; RESP 16; TEMP 36.4; O2SAT 100
== END 2023-09-30 14:50 | disposition home or self-care (01) ==
LOC: INF 11:59
PROVIDERS: PCP Internal Medicine Adolescent Medicine; Visit Provider Internal Medicine Adolescent Medicine
DX: J44.9 Chronic obstructive pulmonary disease, unspecified (principal); E86.0 Dehydration
CPT/HCPCS: 80053; 85007; 85025; 96360; 96367; 96375; J0696

== ENCOUNTER 2023-10-31 16:09 | Emergency (ER) | payer MEDICARE, OTHER, SELFPAY ==
--- NOTE | 2023-10-31 16:02 | ECG_ITS ---
APPROVED REPORT Exam: Resting ECG HR:68 bpm ECG Measurements Heart Rate 68 AXES QRSd 77 QRS 63 QT 398 T 75 QTc 415 Conclusion SUPRAVENTRICULAR RHYTHM LOW QRS VOLTAGE IN PRECORDIAL LEADS [QRS DEFLECTION < 1.0 mV IN CHEST LEADS] MODERATE ST DEPRESSION [0.05+ mV ST DEPRESSION] ABNORMAL ECG UNCONFIRMED REPORT Electronically signed by : Ephraim Lombardo MD 11/01/2023 10:06:23
[2023-10-31 16:09] VITALS: BP 119/100; PULSE 65; RESP 22; TEMP 36.6; O2SAT 98; BMI 25.4
--- NOTE | 2023-10-31 16:20 | HMH.EDGENADL ---
Discharge Plan Disposition Patient Disposition: Home, Self-Care Condition: Fair Prescriptions Prescriptions: No Action metoprolol succinate 25 mg tablet extended release 24 hr 12.5 mg PO HS Patient Comments: TAKE 1/2 TABLET ONCE A DAY. furosemide 40 mg tablet 20 mg PO DAILY Patient Comments: TAKE 1 TABLET 1 TIME EACH DAY clonazepam 0.5 mg tablet 0.5 mg PO TIDP PRN (Reason: Anxiety) cholecalciferol (vitamin D3) 25 mcg (1,000 unit) capsule 25 mcg PO DAILY nitroglycerin 0.4 mg tablet, sublingual 0.4 mg SL Q5-15M PRN (Reason: chest pain) aspirin 81 MG tablet,delayed release (DR/EC) 81 mg PO HS polyethylene glycol 3350 17 GM powder in packet 17 gm PO Q48H PRN (Reason: Constipation) azithromycin 250 mg tablet See Rx Instructions .ROUTE .COMPLEX Patient Comments: TAKE 1 TABLET 1 TIME EACH DAY ON FRIDAY, FRIDAY AND FRIDAY Rx Instructions: 250 mg orally on Friday, Friday and Friday Spiriva Respimat 2.5 mcg/actuation Mist 2 puff INHALATION DAILY cefdinir 300 mg capsule 300 mg PO BID Qty: 14 0RF prednisone 10 mg Tablet 10 mg PO DIRECTED Rx Instructions: see taper instructions atorvastatin 40 MG tablet 40 mg PO HS fluoxetine 20 mg capsule 20 mg PO DAILY Patient Comments: TAKE 1 CAPSULE 1 TIME EACH DAY esomeprazole magnesium 20 mg capsule,delayed release(DR/EC) 20 mg PO BID Patient Comments: TAKE 1 CAPSULE 2 TIMES EACH DAY budesonide 0.5 mg/2 mL suspension for nebulization 0.5 mg inhalation Q12H formoterol fumarate [Perforomist] 20 mcg/2 mL solution for nebulization 2 ml inhalation BID ipratropium-albuterol 0.5 mg-3 mg(2.5 mg base)/3 mL solution for nebulization 3 ml INHALATION QID Patient Comments: USE 3 ML IN NEBULIZER 4 TIMES DAILY NEEDED FOR SHORTNESS OF BREATH OR WHEEZING Referrals Follow up/Referrals: Ephraim Lombardo MD [Primary Care Provider] - See instructions Activity Restrictions/Add. Instructions Additional Instructions/Restrictions: Please follow-up with your primary care doctor. Please return with any new or worsening symptoms. Clinical Impressions Clinical Impression: Generalized weakness Discharge ED Provider: Trae Fenton Adult HPI General Chief complaint: Chest Pain Stated complaint: chest pain Time Seen by Provider: 10/31/23 16:19 Mode of Arrival: Ambulatory Source of Information: Patient and Spouse Limitations: No Limitations Description of Symptoms (Recalled from ER Triage Doc. by RN): c/o chest pain that started 2 days ago with left leg weakness and nausea, feels like she is twitching. History of Present Illness HPI narrative: Patient presents with multiple complaints. These include chest pain that is nonradiating, nonexertional, nonpleuritic, nonpositional, described as dull. Additional symptoms include generalized malaise, she felt like her leg gave out from under her 2 days ago and has had difficulty ambulating due to generalized weakness. Denies any weakness or numbness at this time. Normally ambulates by herself although has been provided a walker in the past. Denies any sick contacts. Describes associated mild abdominal pain which is chronic, no dysuria, no frequency. Describes nausea however no vomiting. When questioned, reports intermittent headache with no exacerbating or alleviating factors. No back pain. No neck pain. No upper extremity issues. Has been able to ambulate after this episode 2 days ago. She denied any syncope or presyncope or associated trauma at that time. Related Data Home Medications Medication Instructions Recorded Confirmed aspirin 81 mg tablet,delayed 81 mg PO HS heart health 01/30/19 09/30/23 release clonazepam 0.5 mg tablet 0.5 mg PO TIDP PRN Anxiety 09/07/19 09/30/23 polyethylene glycol 3350 17 gram 17 gm PO Q48H PRN Constipation 12/13/21 09/30/23 oral powder packet atorvastatin 40 mg tablet 40 mg PO HS Cholesterol 12/17/21 09/30/23 cholecalciferol (vitamin D3) 25 25 mcg PO DAILY Supplement 04/25/22 09/30/23 mcg (1,000 unit) capsule metoprolol succinate 25 mg 12.5 mg PO HS High blood pressure 04/25/22 09/30/23 tablet,extended release 24 hr nitroglycerin 0.4 mg sublingual 0.4 mg sublingual Q5-15M PRN chest 06/07/22 09/30/23 tablet pain furosemide 40 mg tablet 20 mg PO DAILY Fluid 07/02/22 09/30/23 esomeprazole magnesium 20 mg 20 mg PO BID Acid Reflux 07/03/22 09/30/23 capsule,delayed release fluoxetine 20 mg capsule 20 mg PO DAILY MOOD 07/03/22 09/30/23 budesonide 0.5 mg/2 mL suspension 0.5 mg inhalation Q12H COPD 04/10/23 09/30/23 for nebulization formoterol fumarate 20 mcg/2 mL 2 ml inhalation BID COPD 04/10/23 09/30/23 solution for nebulization (Perforomist) ipratropium 0.5 mg-albuterol 3 mg 3 ml inhalation QID Asthma 04/11/23 09/30/23 (2.5 mg base)/3 mL nebulization soln azithromycin 250 mg tablet See Rx Instructions .Route 06/25/23 09/30/23 .COMPLEX Copd tiotropium bromide 2.5 2 puff inhalation DAILY Copd 06/25/23 09/30/23 mcg/actuation mist for inhalation (Spiriva Respimat) prednisone 10 mg tablet 10 mg PO DIRECTED 09/30/23 09/30/23 Previous Rx's Medication Instructions Recorded cefdinir 300 mg capsule 300 mg PO BID #14 caps 06/25/23 Allergies Allergy/AdvReac Type Severity Reaction Status Date / Time No Known Allergies Allergy Verified 09/30/23 13:12 [facility] Disclaimer: The information contained in this section may have been updated after the patient was seen, as this information can be updated by other users. Medical History Acute exacerbation of CHF (congestive heart failure) Acute exacerbation of chronic obstructive airways disease Acute systolic CHF (congestive heart failure) Atypical chest pain Bradycardia Carotid artery stenosis Chronic hypoxemic respiratory failure CKD (chronic kidney disease) Congestive heart failure COPD (chronic obstructive pulmonary disease) Coronary atherosclerosis of [place] coronary artery Dysphagia Dyspnea on exertion Eosinophilia HLD (hyperlipidemia) Multiple pulmonary nodules NSTEMI (non-ST elevated myocardial infarction) Stopped smoking with greater than 30 pack year history Tobacco dependence Surgical History History of colonoscopy History of esophagogastroduodenoscopy (EGD) History of lumpectomy No significant past surgical history Family History Other Cancer Family history of GERD Family history of arthritis Family history of hyperlipidemia Family history of hypertension Heart attack Social History (Updated 09/30/23 @ 13:03 by Kristine Caldwell RN) Smoking Status: Former smoker tobacco type: cigarettes packs per day: 1 second hand exposure: No alcohol intake: never substance use type: denies use 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al status: retired Travel in the last 8 weeks: None household members: spouse housing: house marital status: 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al exposures/hazards: No caffeine: Yes ROS Obtained: Yes Systems reviewed as appropriate & no additional complaints except as documented As per HPI Physical Exam General General appearance: alert, in no apparent distress and other (Chronically ill-appearing) Head Head exam: atraumatic and normocephalic Eye Eye exam: Present normal appearance Neck Neck exam: Present normal inspection Chest Chest inspection: Present normal inspection and symmetric chest wall rise Respiratory Respiratory exam: Present normal lung sounds bilaterally; Absent respiratory distress Cardiovascular Cardiovascular exam: Present regular rate and normal rhythm Abdominal Exam Abdominal exam: Present soft; Absent distention or tenderness Extremities Exam Extremities exam: Present other (Full strength and sensation in left lower extremity, no midline lumbar spinal tenderness to palpation. No cerebellar signs on neurologic exam) Neurological Exam Neurological exam: Present alert and oriented X3 Psychiatric Psychiatric exam: Present normal affect and normal mood Skin Skin exam: Present warm and dry Medical Decision Making Medical Records Medical records reviewed: Yes I reviewed the patient's medical records. [place] Inquiry Pt receiving controlled substance: No Vital Signs: 10/31/23 16:09 10/31/23 16:30 10/31/23 17:01 Temperature 97.8 F Temperature Source Oral Pulse Rate 62 58 L Pulse Rate [Left Radial] 65 Respiratory Rate 22 20 20 Blood Pressure 125/58 L 138/57 L Blood Pressure [Right Arm] 119/100 H Blood Pressure Mean 90 84 Blood Pressure Mean [Right Arm] 106 Blood Pressure Source Blood Pressure Source [Right Arm] Automatic Cuff Blood Pressure Position Blood Pressure Position [Right Arm] Sitting 02 Sat by Pulse Oximetry 98 100 100 Oxygen Delivery Method Nasal Cannula Nasal Cannula Oxygen Flow Rate (LPM) 3 3 10/31/23 18:00 10/31/23 19:20 10/31/23 21:01 Temperature 97.9 F Temperature Source Oral Pulse Rate 64 66 65 Pulse Rate [Left Radial] Respiratory Rate 18 20 20 Blood Pressure 149/49 H 182/63 H 127/79 Blood Pressure [Right Arm] Blood Pressure Mean 82 Blood Pressure Mean [Right Arm] Blood Pressure Source Automatic Cuff Blood Pressure Source [Right Arm] Blood Pressure Position Supine Blood Pressure Position [Right Arm] 02 Sat by Pulse Oximetry 97 94 L Oxygen Delivery Method Nasal Cannula Room Air Oxygen Flow Rate (LPM) 3 Lab Data Lab Results 10/31/23 16:14: WBC 8.1, RBC 3.73 L, Hgb 11.2 L, Hct 34.7 L, MCV 92.8, MCH 30.0, MCHC 32.3, RDW 14.4, Plt Count 227, MPV 9.4, Neut % (Auto) 64.3, Lymph % (Auto) 23.5, [place] % (Auto) 5.3, Eos % (Auto) 6.1, Baso % (Auto) 0.8, Neut # (Auto) 5.2, Lymph # (Auto) 1.9, [place] # (Auto) 0.4, Eos # (Auto) 0.5 H, Baso # (Auto) 0.1, Sodium 142, Potassium 3.7, Chloride 93 L, Carbon Dioxide 47 H*, Anion Gap 5.7, BUN 16, Creatinine 1.00, Estimated Creat Clear 65, Estimated GFR 55 L, Est GFR ( Amer) 66, Glucose 109 H, Calcium 8.3 L, Phosphorus 3.1, Magnesium 1.8, Total Bilirubin 0.5, AST 32, ALT 19, Alkaline Phosphatase 100, Troponin I 0.04 H, Total Protein 5.8 L, Albumin 3.4 L, Globulin 2.4, Albumin/Globulin Ratio 1.4 10/31/23 17:46: SARS-CoV-2 (PCR) Not detected, Influenza A Untype (PCR) Not detected, Influenza Type B (PCR) Not detected 10/31/23 19:02: Troponin I 0.04 H 10/31/23 16:14 10/31/23 16:14 Orders (Tests/Meds): ED MEDICATIONS Discontinued Medications Generic Name Dose Route Start Last Admin Trade Name Freq PRN Reason Stop Dose Admin Lactated Ringer's 1,000 mls @ 999 mls/hr 10/31/23 16:37 10/31/23 17:10 Lactated Ringer's 1000 Ml Bag IV 10/31/23 17:37 999 mls/hr .Q1H1M ONE Administration Iopamidol 100 ml 10/31/23 17:48 10/31/23 17:51 Iopamidol-370 (76%);100ml Bottle IV 10/31/23 17:49 100 ml ONCE ONE Administration Ondansetron HCl 4 mg 10/31/23 16:37 10/31/23 17:10 Ondansetron 4mg/2ml Vial IV 10/31/23 16:38 4 mg ONCE ONE Administration Sodium Chloride 50 ml 10/31/23 17:48 10/31/23 17:51 0.9 % Sodium Chloride 50 Ml Vial IV 10/31/23 17:49 50 ml ONCE ONE Administration Sodium Chloride 10 ml 10/31/23 17:48 10/31/23 17:51 Sodium Chloride 0.9% 10ml Syr (Rad Only) IV 10/31/23 17:49 10 ml ONCE ONE Administration ORDERS Category Date Time Status CT angio head Stat Cat Scan 10/31/23 16:[address] angio neck Stat Cat Scan 10/31/23 16:[address] head/brain wo con Stat Cat Scan 10/31/23 16:38 Completed XR chest 2V Stat Exams 10/31/23 16:39 Completed CBC w/Auto Diff [Complete Blood Count Auto Diff] Stat Lab 10/31/23 16:14 Completed CMP [Comprehensive Metabolic Panel] Stat Lab 10/31/23 16:14 Completed MAG [Magnesium] Stat Lab 10/31/23 16:14 Completed PHOS [Phosphorous] Stat Lab 10/31/23 16:14 Completed Rapid PCR Covid and Flu A/B Stat Lab 10/31/23 17:46 Completed Troponin I Q2H Lab 10/31/23 16:14 Completed Troponin I Q2H Lab 10/31/23 19:02 Completed ECG initial Besson Routine Y 10/31/23 16:02 Completed ECG repeat same Besson Routine Y 10/31/23 18:22 Completed HEART Score History (anamnesis): Slightly suspicious ECG: Non-specific disturbance Age: >65 years Risk factors: Atherosclerosis history Troponin: 1-3x normal limit HEART Score: 6 Medical Decision Narrative: Patient with history and exam per above presenting for evaluation of multiple complaints Diagnoses considered are broad at this time, is difficult to ascertain exactly what patient's concerns are at this time but diagnoses considered include viral illness, ACS, stroke, electrolyte abnormality pneumonia ADAM among others ED workup and treatment included: ED MEDICATIONS Discontinued Medications Generic Name Dose Route Start Last Admin Trade Name Enedina PRN Reason Stop Dose Admin Lactated Ringer's 1,000 mls @ 999 mls/hr 10/31/23 16:37 10/31/23 17:10 Lactated Ringer's 1000 Ml Bag IV 10/31/23 17:37 999 mls/hr .Q1H1M ONE Administration Iopamidol 100 ml 10/31/23 17:48 10/31/23 17:51 Iopamidol-370 (76%);100ml Bottle IV 10/31/23 17:49 100 ml ONCE ONE Administration Ondansetron HCl 4 mg 10/31/23 16:37 10/31/23 17:10 Ondansetron 4mg/2ml Vial IV 10/31/23 16:38 4 mg ONCE ONE Administration Sodium Chloride 50 ml 10/31/23 17:48 10/31/23 17:51 0.9 % Sodium Chloride 50 Ml Vial IV 10/31/23 17:49 50 ml ONCE ONE Administration Sodium Chloride 10 ml 10/31/23 17:48 10/31/23 17:51 Sodium Chloride 0.9% 10ml Syr (Rad Only) IV 10/31/23 17:49 10 ml ONCE ONE Administration ORDERS Category Date Time Status CT angio head Stat Cat Scan 10/31/23 16:[address] angio neck Stat Cat Scan 10/31/23 16:[address] head/brain wo con Stat Cat Scan 10/31/23 16:38 Completed XR chest 2V Stat Exams 10/31/23 16:39 Completed CBC w/Auto Diff [Complete Blood Count Auto Diff] Stat Lab 10/31/23 16:14 Completed CMP [Comprehensive Metabolic Panel] Stat Lab 10/31/23 16:14 Completed MAG [Magnesium] Stat Lab 10/31/23 16:14 Completed PHOS [Phosphorous] Stat Lab 10/31/23 16:14 Completed Rapid PCR Covid and Flu A/B Stat Lab 10/31/23 17:46 Completed Troponin I Q2H Lab 10/31/23 16:14 Completed Troponin I Q2H Lab 10/31/23 19:02 Completed ECG initial Bess[place] Routine Y 10/31/23 16:02 Completed ECG repeat same Bess[place] Routine Y 10/31/23 18:22 Completed Labs were independently interpreted by me, significant for stable elevated troponin at 0.04, COVID not detected, carbon dioxide 47 mmol/L, with baseline for patient mid to high 30s. Serial EKGs were independently visualized and interpreted by me significant for normal axis, sinus rhythm, nonspecific T wave inversions. Imaging was independently visualized and interpreted by me, significant for no acute findings, no acute intracranial abnormality, suspect old pontine chronic ischemic changes, chronic emphysematous changes Upon repeat evaluation patient reports some improvement of symptoms. Denies any respiratory complaints at this time and is on home oxygen requirement. Is ambulatory and exhibits no clinical cerebellar signs on my serial examination. I discussed my clinical impression, patient's test results, and did offer admission for further inpatient management if patient still felt symptomatic, pontine lesions are age indeterminant on CT imaging although low clinical index of suspicion at this time for cerebellar stroke. Patient denies any vertiginous symptoms for me. Full strength in bilateral upper and lower extremities and no clinical cerebellar signs. After discussion patient elects to be discharged at this time, will follow-up with primary care provider. Return precautions were given. Patient and family member at bedside expressed understanding and agreement with this plan. Critical Care Critical Care Time Critical Care Time: No
[2023-10-31 16:30] VITALS: BP 125/58; PULSE 62; RESP 20; O2SAT 100
--- NOTE | 2023-10-31 16:38 | CT_ITS ---
PROCEDURE INFORMATION: Exam: CTA Head With Contrast, Arteriography Exam date and time: 10/31/2023 5:33 PM Age: 73 years old Clinical indication: Pain; Other: Lle reported weakness; Headache; Additional info: khris CALDERA reported weakness TECHNIQUE: Imaging protocol: Computed tomographic angiography of the head with contrast. Exam focused on the arteries. 3D rendering (Not supervised by radiologist): MIP and/or 3D reconstructed images were created by the technologist. Radiation optimization: All CT scans at this facility use at least one of these dose optimization techniques: automated exposure control; mA and/or kV adjustment per patient size (includes targeted exams where dose is matched to clinical indication); or iterative reconstruction. Contrast material: ISOVUE; Contrast volume: 100 ml; Contrast route: INTRAVENOUS (IV); COMPARISON: CT HEAD/BRAIN WO CON 10/31/2023 5:33 PM FINDINGS: ANTERIOR CIRCULATION: Right internal carotid artery: Intracranial segment is patent with no significant stenosis. No aneurysm. Right middle cerebral artery: No occlusion or significant stenosis. No aneurysm. Right anterior cerebral artery: No occlusion or significant stenosis. No aneurysm. Left internal carotid artery: Intracranial segment is patent with no significant stenosis. No aneurysm. Left middle cerebral artery: No occlusion or significant stenosis. No aneurysm. Left anterior cerebral artery: No occlusion or significant stenosis. No aneurysm. POSTERIOR CIRCULATION: Right vertebral artery: No occlusion or significant stenosis. No aneurysm. Left vertebral artery: No occlusion or significant stenosis. No aneurysm. Basilar artery: No occlusion or significant stenosis. No aneurysm. Right posterior cerebral artery: No occlusion or significant stenosis. No aneurysm. Left posterior cerebral artery: No occlusion or significant stenosis. No aneurysm. Brain: No definite mass, mass effect, or midline shift. Cerebral ventricles: No ventriculomegaly. Bones/joints: Unremarkable. No acute fracture. Soft tissues: Unremarkable. Other findings: Significant changes of emphysema throughout the bilateral upper lungs. Small calcified granuloma noted in the right upper lung. IMPRESSION: No large vessel intracranial stenosis or occlusion.
--- NOTE | 2023-10-31 16:38 | CT_ITS ---
PROCEDURE INFORMATION: Exam: CT Head Without Contrast Exam date and time: 10/31/2023 5:33 PM Age: 73 years old Clinical indication: Other: Headache; Additional info: khris CALDERA reported weakness TECHNIQUE: Imaging protocol: Computed tomography of the head without contrast. Radiation optimization: All CT scans at this facility use at least one of these dose optimization techniques: automated exposure control; mA and/or kV adjustment per patient size (includes targeted exams where dose is matched to clinical indication); or iterative reconstruction. COMPARISON: CT ANGIO HEAD 10/31/2023 5:33 PM FINDINGS: Brain: Ill-defined area of low attenuation zuri suggesting ischemic changes of indeterminate age. No intracranial mass or hemorrhage. Cerebral ventricles: No ventriculomegaly. Paranasal sinuses: Visualized sinuses are unremarkable. No fluid levels. Mastoid air cells: Visualized mastoid air cells are well aerated. Bones/joints: Unremarkable. No acute fracture. Soft tissues: Unremarkable. IMPRESSION: Suspected age-indeterminate ischemic changes in the central zuri. No acute intracranial hemorrhage.
--- NOTE | 2023-10-31 16:39 | CT_ITS ---
PROCEDURE INFORMATION: Exam: CTA Neck With Contrast Exam date and time: 10/31/2023 5:33 PM Age: 73 years old Clinical indication: Pain; Other: Lle reported weakness; Headache; Additional info: khris CALDERA reported weakness TECHNIQUE: Imaging protocol: Computed tomographic angiography of the neck with contrast. Exam focused on the cervical segments of the vasculature. 3D rendering (Not supervised by radiologist): MIP and/or 3D reconstructed images were created by the technologist. Radiation optimization: All CT scans at this facility use at least one of these dose optimization techniques: automated exposure control; mA and/or kV adjustment per patient size (includes targeted exams where dose is matched to clinical indication); or iterative reconstruction. Contrast material: ISOVUE; Contrast volume: 100 ml; Contrast route: INTRAVENOUS (IV); COMPARISON: CT ANGIO HEAD 10/31/2023 5:33 PM FINDINGS: Right common carotid artery: No stenosis. No dissection or occlusion. Right internal carotid artery: No stenosis of the extracranial segment. No dissection or occlusion. Right external carotid artery: No occlusion or stenosis of the origin. Left common carotid artery: No stenosis. No dissection or occlusion. Left internal carotid artery: No stenosis of the extracranial segment. No dissection or occlusion. Left external carotid artery: No occlusion or stenosis of the origin. Right vertebral artery: No stenosis. No dissection or occlusion. Left vertebral artery: No stenosis. No dissection or occlusion. Soft tissues: Normal. No significant soft tissue swelling. Bones/joints: Moderate degenerative disc changes throughout the cervical spine. No acute fracture. Lungs: Significant changes of emphysema in the bilateral upper lungs. Small calcified granulomas in the right upper lung. IMPRESSION: No carotid stenosis. Patent bilateral vertebral arteries. REFERENCES: NASCET CRITERIA. The degree of stenosis in the cervical segment of the internal carotid artery is based on NASCET criteria. Normal is no stenosis. Mild is less than 50% stenosis. Moderate is 50-69% stenosis. Severe is 70% to 99% stenosis. Total occlusion is no detectable patent lumen.
--- NOTE | 2023-10-31 16:39 | XR_ITS ---
PROCEDURE INFORMATION: Exam: XR Chest Exam date and time: 10/31/2023 5:30 PM Age: 73 years old Clinical indication: Sternal or substernal pain; Additional info: Chest pain TECHNIQUE: Imaging protocol: Radiologic exam of the chest. Views: 2 views. COMPARISON: CR XR CHEST PORTABLE 07/22/2023 12:39 PM FINDINGS: Lungs: Small calcified right upper lobe granulomas appear stable. No active pulmonary infiltrate. Pleural spaces: Unremarkable. No pleural effusion. No pneumothorax. Heart/Mediastinum: Stable prominent right paratracheal lymph node compatible with old granulomatous disease. Bones/joints: Unremarkable. IMPRESSION: No acute interval change
[2023-10-31 16:53] LABS: Chloride 93 mmol/L (98-107); Potassium 3.7 mmoL/L (3.5-5.1); Sodium 142 mmol/L (136-145)
[2023-10-31 16:56] LABS: Alanine Aminotransferase 19 U/L (12-78); Albumin Level 3.4 g/dl (3.5-5.0); Albumin/Globulin Ratio 1.4 (1.1-1.8); Alkaline Phosphatase 100 U/L (38-126); Aspartate Amino Transferase 32 U/L (14-36); Bilirubin,Total 0.5 mg/dl (0.2-1.3); Blood Urea Nitrogen 16 mg/dl (7-17); Calcium 8.3 mg/dl (8.4-10.2); Creatinine Clearance Estimated 65 mL/min (50-200); Estimated Glomerular Filt Rate 55 ml/min (>60); GFR (African American) 66 ML/MIN (>60); Globulin 2.4 g/dL (1.3-3.2); Glucose 109 mg/dl (74-100); Magnesium 1.8 mg/dl (1.6-2.3); Phosphorous 3.1 mg/dl (2.5-4.5); Total Protein,Serum 5.8 g/dl (6.3-8.2)
[2023-10-31 17:01] VITALS: BP 138/57; PULSE 58; RESP 20; O2SAT 100
[2023-10-31 17:03] LABS: Basophils # 0.1 K/mm3 (0-0.2); Basophils % 0.8 % (0.1-2.0); Eosinophils # 0.5 K/mm3 (0.0-0.4); Eosinophils % 6.1 % (0.1-12.0); Hematocrit 34.7 % (37.0-47.0); Hemoglobin 11.2 g/dL (12.2-16.2); Lymphocytes # 1.9 K/mm3 (0.7-4.5); Lymphocytes % 23.5 % (10-50); Mean Corpuscular HGB Conc 32.3 g/dL (31.8-35.4); Mean Corpuscular Volume 92.8 fl (81-99); Mean Platelet Volume 9.4 fl (7.4-10.4); Monocytes # 0.4 K/mm3 (0.1-1.0); Monocytes % 5.3 % (1.7-9.3); Neutrophils # 5.2 K/mm3 (1.8-7.8); Neutrophils % 64.3 % (37.0-80.0); Platelet Count 227 K/mm3 (142-424); Red Blood Count 3.73 M/mm3 (4.20-5.40); Red Cell Distribution Width 14.4 % (11.5-17.5); White Blood Count 8.1 K/mm3 (4.8-10.8)
[2023-10-31 17:07] LABS: Troponin I 0.04 ng/ml (0.00-0.034)
[2023-10-31 17:08] LABS: Anion Gap 5.7 mEq/L (5-15)
[2023-10-31] MEDS: ONDANSETRON 4MG/2ML VIAL 4 MG IV (17:10)
[2023-10-31] MEDS: LACTATED RINGERS 1000ML 1,000 ML 999 ML IV (17:10)
[2023-10-31 17:12] LABS: Carbon Dioxide 47 mmol/L (22.0-30.0)
[2023-10-31 17:51] LABS: Coronavirus 19, PCR Not Detected (NotDetected); Influenza A, PCR Not Detected (NotDetected); Influenza B, PCR Not Detected (NotDetected)
[2023-10-31] MEDS: SODIUM CHLORIDE 0.9% 10ML SYR (RAD ONLY) 10 ML IV (17:51)
[2023-10-31] MEDS: 0.9 % SODIUM CHLORIDE 50 ML VIAL IV (17:51)
[2023-10-31] MEDS: IOPAMIDOL-370 (76%);100ML BOTTLE 100 ML IV (17:51)
[2023-10-31 18:00] VITALS: BP 149/49; PULSE 64; RESP 18; O2SAT 97
--- NOTE | 2023-10-31 18:22 | ECG_ITS ---
APPROVED REPORT Exam: Resting ECG HR:56 bpm ECG Measurements Heart Rate 56 AXES NV 169 P 79 QRSd 72 QRS 67 QT 412 T 70 QTc 404 Conclusion SINUS BRADYCARDIA WITH SINUS ARRHYTHMIA LOW QRS VOLTAGE IN PRECORDIAL LEADS [QRS DEFLECTION < 1.0 mV IN CHEST LEADS] MODERATE ST DEPRESSION [0.05+ mV ST DEPRESSION] ABNORMAL ECG UNCONFIRMED REPORT Electronically signed by : Ephraim Lombardo MD 11/01/2023 10:06:09
[2023-10-31 19:20] VITALS: BP 182/63; PULSE 66; RESP 20; O2SAT 94
--- NOTE | 2023-10-31 19:39 | PC.NURSE ---
Patient assisted to BSC and given a warm blanket for comfort. No other needs at this time.
[2023-10-31 19:44] LABS: Troponin I 0.04 ng/ml (0.00-0.034)
[2023-10-31 21:01] VITALS: BP 127/79; PULSE 65; RESP 20; TEMP 36.6; O2SAT 96
== END 2023-10-31 21:10 | disposition home or self-care (01) ==
PROVIDERS: Emergency Provider Emergency Medicine; PCP Internal Medicine Adolescent Medicine
DX: R07.9 Chest pain, unspecified (principal); R53.1 Weakness; R11.0 Nausea; J44.9 Chronic obstructive pulmonary disease, unspecified; I50.21 Acute systolic (congestive) heart failure; I65.29 Occlusion and stenosis of unspecified carotid artery; J96.10 Chronic respiratory failure, unspecified whether with hypoxia or hypercapnia; N18.9 Chronic kidney disease, unspecified; I25.10 Atherosclerotic heart disease of native coronary artery without angina pectoris; E78.5 Hyperlipidemia, unspecified; Z87.891 Personal history of nicotine dependence; I25.2 Old myocardial infarction
CPT/HCPCS: 70450; 70496; 70498; 71046; 80053; 83735; 84100; 84484; 85025; 87636; 93005; 96361; 96374; 99285; J2405; Q9967

== ENCOUNTER 2023-11-04 12:19 | Inpatient (IN) | payer MEDICARE, OTHER, SELFPAY ==
--- NOTE | 2023-11-04 12:40 | XR_ITS ---
FINAL REPORT TECHNIQUE: Chest PA & Lateral CLINICAL HISTORY: cough, increased O2 requirement COMPARISON: October 31, 2023 FINDINGS: 2 views of the chest were performed. The heart size is normal. The mediastinum is within normal limits. There is mild right midlung atelectasis or scarring. There are no pleural effusions. There is no pneumothorax. The bony thorax appears intact. IMPRESSION: Mild right midlung atelectasis or scarring. Reviewed, Interpreted and Dictated by Yoshi Gutierrez III, MD Transcribed by Petr Funez Authenticated and [facility]
--- NOTE | 2023-11-04 13:12 | MR_ITS ---
FINAL REPORT CLINICAL HISTORY: CVA SYMPTOMS COMPARISON: None FINDINGS: Multiplanar MR imaging of the brain was performed without contrast. There is mild age-appropriate atrophy. There are scattered foci of increased T2 signal in the cerebral white matter and zuri that have a nonspecific appearance but likely represent mild chronic ischemic/gliotic changes. There is no evidence of intracranial hemorrhage or mass. No abnormal ventricular dilatation is identified. No abnormal extra-axial fluid collection is seen. No abnormality is seen on the diffusion weighted images. The posterior fossa and brainstem are unremarkable. Normal major vessel vascular flow voids are seen. IMPRESSION: Age-appropriate atrophy and mild chronic ischemic/gliotic changes, including the zuri. No acute intracranial abnormality. Reviewed, Interpreted and Dictated by Yoshi Gutierrez III, MD Transcribed by Yudith Novoa Authenticated and [facility]
[2023-11-04] MEDS: ACETAMINOPHEN 325MG TAB 650 MG PO (13:34)
[2023-11-04 13:49] LABS: Basophils % 0.3 % (0.1-2.0); Eosinophils # 0.3 K/mm3 (0.0-0.4); Eosinophils % 3.6 % (0.1-12.0); Hematocrit 30.7 % (37.0-47.0); Hemoglobin 10.3 g/dL (12.2-16.2); Lymphocytes # 1.3 K/mm3 (0.7-4.5); Lymphocytes % 16.3 % (10-50); Mean Corpuscular HGB Conc 33.6 g/dL (31.8-35.4); Mean Corpuscular Hemoglobin 30.6 pg (27.0-31.2); Mean Corpuscular Volume 90.9 fl (81-99); Mean Platelet Volume 9.6 fl (7.4-10.4); Monocytes # 0.4 K/mm3 (0.1-1.0); Monocytes % 4.6 % (1.7-9.3); Neutrophils # 5.8 K/mm3 (1.8-7.8); Neutrophils % 75.2 % (37.0-80.0); Platelet Count 178 K/mm3 (142-424); Red Blood Count 3.38 M/mm3 (4.20-5.40); Red Cell Distribution Width 14.5 % (11.5-17.5); White Blood Count 7.7 K/mm3 (4.8-10.8)
[2023-11-04 14:00] VITALS: BP 120/69; PULSE 69; RESP 20; TEMP 36.4; O2SAT 94; BMI 26.6
[2023-11-04 14:01] LABS: Chloride 95 mmol/L (98-107); Potassium 3.8 mmoL/L (3.5-5.1); Sodium 142 mmol/L (136-145)
[2023-11-04 14:03] LABS: Blood Urea Nitrogen 12 mg/dl (7-17); Estimated Glomerular Filt Rate 55 ml/min (>60); GFR (African American) 66 ML/MIN (>60); Lactic Acid 1.4 mmol/L (0.7-2.1)
[2023-11-04 14:04] LABS: Alanine Aminotransferase 24 U/L (12-78); Albumin Level 3.3 g/dl (3.5-5.0); Albumin/Globulin Ratio 1.4 (1.1-1.8); Alkaline Phosphatase 90 U/L (38-126); Aspartate Amino Transferase 37 U/L (14-36); Bilirubin,Total 0.6 mg/dl (0.2-1.3); Calcium 8.5 mg/dl (8.4-10.2); Globulin 2.4 g/dL (1.3-3.2); Glucose 88 mg/dl (74-100); Magnesium 1.7 mg/dl (1.6-2.3); Total Protein,Serum 5.7 g/dl (6.3-8.2)
[2023-11-04 14:15] LABS: Anion Gap 9.8 mEq/L (5-15); Carbon Dioxide 41 mmol/L (22.0-30.0)
[2023-11-04] MEDS: 0.9 % SODIUM CHLORIDE 1000ML 1,000 ML 50 ML IV (14:57)
--- NOTE | 2023-11-04 15:57 | EXP.PULM.CON ---
History of Present Illness History of present illness: Ms. Black is a 73-year-old female greater than 30 PPD last in pulmonary clinic in November 2022 following for COPD at the time and budesonide/formoterol nebulizers and Spiriva HandiHaler, azithromycin Friday and chronic hypoxic respiratory failure on long-term oxygen therapy was admitted to the hospital clinic as concerning for worsening respiratory status and weakness. [facility] Disclaimer: The information contained in this section may have been updated after the patient was seen, as this information can be updated by other users. Medical History Acute exacerbation of CHF (congestive heart failure) Acute exacerbation of chronic obstructive airways disease Acute systolic CHF (congestive heart failure) Atypical chest pain Bradycardia Carotid artery stenosis Chronic hypoxemic respiratory failure CKD (chronic kidney disease) Congestive heart failure COPD (chronic obstructive pulmonary disease) Coronary atherosclerosis of [place] coronary artery Dysphagia Dyspnea on exertion Eosinophilia HLD (hyperlipidemia) Multiple pulmonary nodules NSTEMI (non-ST elevated myocardial infarction) Stopped smoking with greater than 30 pack year history Tobacco dependence Surgical History History of colonoscopy History of esophagogastroduodenoscopy (EGD) History of lumpectomy No significant past surgical history Family History Other Cancer Family history of GERD Family history of arthritis Family history of hyperlipidemia Family history of hypertension Heart attack Social History (Updated 09/30/23 @ 13:03 by Kristine Caldwell RN) Smoking Status: Former smoker tobacco type: cigarettes packs per day: 1 second hand exposure: No alcohol intake: never substance use type: denies use 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al status: retired Travel in the last 8 weeks: None household members: spouse housing: house marital status: 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al exposures/hazards: No caffeine: Yes Review of Systems Constitutional Constitutional: Reports anorexia, Reports body ache(s) and Reports fatigue Eyes Eyes: Denies eye discharge, Denies dry eyes, Denies irritation and Denies itchy eyes ENT Ears, Nose, Mouth, and Throat: Denies epistaxis, Denies facial pain, Denies lip swelling and Denies throat swelling *Cardiovascular Cardiovascular: Reports dyspnea and Reports dyspnea on exertion *Respiratory Respiratory: Denies change in phlegm color, Reports chest congestion, Reports cough, Reports dyspnea, Reports dyspnea on exertion, Reports excessive phlegm production and Reports wheezing *Gastrointestinal Gastrointestinal: Denies abdominal pain, Denies belching, Denies cramping and Reports nausea *Musculoskeletal Musculoskeletal: Reports back pain, Reports muscle weakness, Reports myalgias, Reports tingling and Reports other (No small joint swelling or Pain) *Neurologic Neurologic: Reports tingling Psychiatric Psychiatric: Denies homicidal ideation and Denies suicidal ideation Endocrine Endocrine: Reports fatigue and Denies heat intolerance Hematologic/Lymphatic Hematologic/Lymphatic: Denies easy bleeding and Denies lymphadenopathy Allergic/Immunologic Allergic/Immunologic: Denies itchy eyes, Denies lip swelling, Denies throat swelling and Reports wheezing Pulmonology Exam Inpatient Vital signs and Labs for Last 24 Hours: O2 Del Method O2 Flow Rate Nasal Cannula 2 11/04/23 15:12 11/04/23 15:12 Laboratory Results - last 24 hr 11/04/23 13:40: WBC 7.7, RBC 3.38 L, Hgb 10.3 L, Hct 30.7 L, MCV 90.9, MCH 30.6, MCHC 33.6, RDW 14.5, Plt Count 178, MPV 9.6, Neut % (Auto) 75.2, Lymph % (Auto) 16.3, [place] % (Auto) 4.6, Eos % (Auto) 3.6, Baso % (Auto) 0.3, Neut # (Auto) 5.8, Lymph # (Auto) 1.3, [place] # (Auto) 0.4, Eos # (Auto) 0.3, Baso # (Auto) 0.0, Sodium 142, Potassium 3.8, Chloride 95 L, Carbon Dioxide 41 H*, Anion Gap 9.8, BUN 12, Creatinine 1.00, Estimated GFR 55 L, Est GFR ( Amer) 66, Glucose 88, Lactate 1.4, Calcium 8.5, Magnesium 1.7, Total Bilirubin 0.6, AST 37 H, ALT 24, Alkaline Phosphatase 90, Total Protein 5.7 L, Albumin 3.3 L, Globulin 2.4, Albumin/Globulin Ratio 1.4 Constitutional: Present mild distress Head: Present normocephalic and atraumatic ENT: Present normal exam, normal oropharynx and mucous membranes moist Neck: Present normal inspection and full ROM Respiratory: Present wheezes and able to speak in complete sentences; Absent prolonged expiratory phase or respiratory distress Cardiac: Present S1/S2, Tachycardia and radial pulses present GI: Present soft and distention; Absent tenderness or guarding Rectal (female): Present deferred (female): Present deferred Skin: Present intact; Absent cyanosis or jaundice Neuro: Present alert, awake and oriented x 3 Extremities: Present normal inspection and edema; Absent clubbing or cyanosis Psychiatric: Present normal affect and cooperative Meds Home Medications and Allergies Home Medications Medication Instructions Recorded Confirmed Type aspirin 81 mg tablet,delayed 81 mg PO HS 01/30/19 11/04/23 History release atorvastatin 40 mg tablet 40 mg PO HS 12/17/21 11/04/23 History cholecalciferol (vitamin D3) 25 25 mcg PO DAILY Supplement 04/25/22 11/04/23 History mcg (1,000 unit) capsule metoprolol succinate 25 mg 12.5 mg PO HS 04/25/22 11/04/23 History tablet,extended release 24 hr nitroglycerin 0.4 mg sublingual 0.4 mg sublingual Q5-15M PRN Chest 06/07/22 11/04/23 History tablet Pain furosemide 40 mg tablet 20 mg PO DAILY 07/02/22 11/04/23 History esomeprazole magnesium 20 mg 20 mg PO BID 07/03/22 11/04/23 History capsule,delayed release fluoxetine 20 mg capsule 20 mg PO DAILY 07/03/22 11/04/23 History budesonide 0.5 mg/2 mL suspension 0.5 mg inhalation Q12H 04/10/23 11/04/23 History for nebulization formoterol fumarate 20 mcg/2 mL 2 ml inhalation BID 04/10/23 11/04/23 History solution for nebulization ipratropium 0.5 mg-albuterol 3 mg 3 ml inhalation QID Asthma 04/11/23 11/04/23 History (2.5 mg base)/3 mL nebulization soln azithromycin 250 mg tablet 250 mg PO MOWEFR 06/25/23 11/04/23 History tiotropium bromide 2.5 2 puff inhalation DAILY 06/25/23 11/04/23 History mcg/actuation mist for inhalation (Spiriva Respimat) clonazepam 0.5 mg tablet 0.5 mg PO BID 11/04/23 11/04/23 History clonazepam 0.5 mg tablet 1 mg PO HS 11/04/23 11/04/23 History New Prescriptions to Start Prescriptions: Allergies Allergy/AdvReac Type Severity Reaction Status Date / Time No Known Allergies Allergy Verified 09/30/23 13:12 Results Laboratory Findings 11/04/23 13:40 11/04/23 13:40 Abnormal lab findings: Abnormal Labs 11/04/23 13:40 RBC 3.38 L Hgb 10.3 L Hct 30.7 L Chloride 95 L Carbon Dioxide 41 H* Estimated GFR 55 L AST 37 H Total Protein 5.7 L Albumin 3.3 L Assessment and Plan *Assessment and plan (1) Chronic hypoxemic respiratory failure: Status: Chronic Category: Medical Code(s): J96.11 - Chronic respiratory failure with hypoxia (2) COPD (chronic obstructive pulmonary disease): Status: Chronic Qualifiers: COPD type: unspecified COPD Qualified Code(s): J44.9 - Chronic obstructive pulmonary disease, unspecified Category: Medical Code(s): J44.9 - Chronic obstructive pulmonary disease, unspecified Plan Ms. Black is a 73-year-old female greater than 30 PPD last in pulmonary clinic in November 2022 following for COPD at the time and budesonide/formoterol nebulizers and Spiriva HandiHaler, azithromycin Friday and chronic hypoxic respiratory failure on long-term oxygen therapy was admitted to the hospital clinic as concerning for worsening respiratory status and weakness. Patient admits worsening respiratory send for the last week he denies any worsening cough or any productive phlegm. Auscultation mild expiratory wheezing not significantly changed from her baseline. Patient saturating 98% on 2 L nasal cannula, weaned to 1 L. Chest x-ray from this admission reviewed, hyperinflated lungs, no evidence of dense consolidation/airspace disease noted. Plan: Incentive spirometry and flutter valve Continue DuoNebs every 6 hours along with Pulmicort every 12 scheduled No need for antibiotics or steroids at this point of time as patient respiratory status at baseline with no evidence of COPD exacerbation. Thank you for involving pulmonary in this patient care. Will continue to follow.
[2023-11-04 16:00] VITALS: BP 132/66; PULSE 60; PULSE 72; RESP 19; TEMP 36.6; O2SAT 94
--- NOTE | 2023-11-04 16:00 | HMH.PHAINT1 ---
Pharmacy Intervention Comments: Home med list verified with patient at bedside and with external pharmacy list.
[2023-11-04 16:33] LABS: Troponin I 0.02 ng/ml (0.00-0.034)
--- NOTE | 2023-11-04 17:57 | XR_ITS ---
PROCEDURE INFORMATION: Exam: XR Complete Acute Abdomen Series Including Chest Exam date and time: 11/04/2023 6:54 PM Age: 73 years old Clinical indication: Nausea; Abdominal pain; Generalized; Additional info: Abd pain, nausea TECHNIQUE: Imaging protocol: Radiologic exam. Complete acute abdomen series, including 2 or more views of the abdomen and a single view chest. COMPARISON: CR XR CHEST 2V 11/04/2023 2:43 PM FINDINGS: Lungs: Moderate hyperexpansion and hyperlucency with diaphragmatic flattening suggesting COPD. Granulomatous calcifications in the right upper lobe and right perihilar region. Pulmonary vasculature grossly normal. No pulmonary infiltrates. Mild chronic bandlike atelectasis or fibrosis in the mid and basilar lung [place] unchanged. There are few calcified flank granulomas over the left iliac wing and upper lateral gluteal region. Pleural spaces: No pleural effusion. No pneumothorax. Heart/Mediastinum: Heart size normal. No tracheal/mediastinal shift. Gastrointestinal tract: Nonobstructive bowel gas pattern. Intraperitoneal space: No intraperitoneal free air is evident. Right upper quadrant surgical clips suggest prior cholecystectomy. Organs: Punctate splenic granulomatous calcifications. No evidence of organomegaly. The liver appears small at 11 cm craniocaudal, likely anatomic variation as this is unchanged from 08/08/2021 with no gross features of cirrhosis or fibrosis on that scan. The kidneys are somewhat small, also likely anatomic variation and unchanged appearance from 08/08/2021. 4 mm vascular calcification in the left renal hilum. Bones/joints: No acute osseous abnormalities. Osteopenia and mild lumbar spondylosis. Soft tissues: No gross soft tissue masses. IMPRESSION: 1. No acute intrathoracic or intra-abdominal/intrapelvic process is evident radiographically. 2. Nonemergent findings detailed above.
--- NOTE | 2023-11-04 17:59 | EXP.HP ---
History of Present Illness *Admission Date: 11/04/23 *Reason for visit:: Left-sided weakness, nausea, abdominal pain *History of present illness: 73-year-old white female, long patient of mine, who with long history of COPD secondary to many years of tobacco use, who has been oxygen requirement and neb requiring over the past 3 to 4 years with chronic hypoxic respiratory failure. About 4 days ago she called me and stated that she did not think her left leg was working well but noted that it was improving after she had gotten up from her chair and moved around. She ended up coming to the ER because of weakness and some chest pain over the weekend, CTA of neck and CT scan of head were unremarkable and she was discharged home. She came to see me in the office today with increasing weakness, and failings of her left side being weak. Her left arm and leg were weak on exam given her baseline and she was found to have a right-sided facial droop. Admitted to hospital for possible completed stroke and ongoing weakness with multiple falls at home. In addition patient reports increasing abdominal nausea, pain when she stands up, feeling that there is a band around her stomach and just general malaise and feeling sick. [facility] Disclaimer: The information contained in this section may have been updated after the patient was seen, as this information can be updated by other users. Medical History Acute exacerbation of CHF (congestive heart failure) Acute exacerbation of chronic obstructive airways disease Acute systolic CHF (congestive heart failure) Atypical chest pain Bradycardia Carotid artery stenosis Chronic hypoxemic respiratory failure CKD (chronic kidney disease) Congestive heart failure COPD (chronic obstructive pulmonary disease) Coronary atherosclerosis of [place] coronary artery Dysphagia Dyspnea on exertion Eosinophilia HLD (hyperlipidemia) Multiple pulmonary nodules NSTEMI (non-ST elevated myocardial infarction) Stopped smoking with greater than 30 pack year history Tobacco dependence Surgical History History of colonoscopy History of esophagogastroduodenoscopy (EGD) History of lumpectomy No significant past surgical history Family History Other Cancer Family history of GERD Family history of arthritis Family history of hyperlipidemia Family history of hypertension Heart attack Social History (Updated 09/30/23 @ 13:03 by Kristine Caldwell RN) Smoking Status: Former smoker tobacco type: cigarettes packs per day: 1 second hand exposure: No alcohol intake: never substance use type: denies use 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al status: retired Travel in the last 8 weeks: None household members: spouse housing: house marital status: 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al exposures/hazards: No caffeine: Yes Review of Systems Review of Systems Review of systems:: pertinent systems reviewed and negative unless documented below *Musculoskeletal Musculoskeletal: Reports tingling *Neurologic Neurologic: Reports tingling Meds Home Medications and Allergies Home Medications Medication Instructions Recorded Confirmed Type aspirin 81 mg tablet,delayed 81 mg PO HS 01/30/19 11/04/23 History release atorvastatin 40 mg tablet 40 mg PO HS 12/17/21 11/04/23 History cholecalciferol (vitamin D3) 25 25 mcg PO DAILY Supplement 04/25/22 11/04/23 History mcg (1,000 unit) capsule metoprolol succinate 25 mg 12.5 mg PO HS 04/25/22 11/04/23 History tablet,extended release 24 hr nitroglycerin 0.4 mg sublingual 0.4 mg sublingual Q5-15M PRN Chest 06/07/22 11/04/23 History tablet Pain furosemide 40 mg tablet 20 mg PO DAILY 07/02/22 11/04/23 History esomeprazole magnesium 20 mg 20 mg PO BID 07/03/22 11/04/23 History capsule,delayed release fluoxetine 20 mg capsule 20 mg PO DAILY 07/03/22 11/04/23 History budesonide 0.5 mg/2 mL suspension 0.5 mg inhalation Q12H 04/10/23 11/04/23 History for nebulization formoterol fumarate 20 mcg/2 mL 2 ml inhalation BID 04/10/23 11/04/23 History solution for nebulization ipratropium 0.5 mg-albuterol 3 mg 3 ml inhalation QID Asthma 04/11/23 11/04/23 History (2.5 mg base)/3 mL nebulization soln azithromycin 250 mg tablet 250 mg PO MOWEFR 06/25/23 11/04/23 History tiotropium bromide 2.5 2 puff inhalation DAILY 06/25/23 11/04/23 History mcg/actuation mist for inhalation (Spiriva Respimat) clonazepam 0.5 mg tablet 0.5 mg PO BID 11/04/23 11/04/23 History clonazepam 0.5 mg tablet 1 mg PO HS 11/04/23 11/04/23 History New Prescriptions to Start Prescriptions: Allergies Allergy/AdvReac Type Severity Reaction Status Date / Time No Known Allergies Allergy Verified 09/30/23 13:12 Exam Data for Last 24 hours Vital signs and Labs for Last 24 Hours: Temp Pulse Resp BP Pulse Ox O2 Del Method O2 Flow Rate 97.8 F 72 19 132/66 94 L Nasal Cannula 2 11/04/23 16:00 11/04/23 16:00 11/04/23 16:00 11/04/23 16:00 11/04/23 16:00 11/04/23 17:00 11/04/23 17:00 Laboratory Results - last 24 hr 11/04/23 13:40: WBC 7.7, RBC 3.38 L, Hgb 10.3 L, Hct 30.7 L, MCV 90.9, MCH 30.6, MCHC 33.6, RDW 14.5, Plt Count 178, MPV 9.6, Neut % (Auto) 75.2, Lymph % (Auto) 16.3, [place] % (Auto) 4.6, Eos % (Auto) 3.6, Baso % (Auto) 0.3, Neut # (Auto) 5.8, Lymph # (Auto) 1.3, [place] # (Auto) 0.4, Eos # (Auto) 0.3, Baso # (Auto) 0.0, Sodium 142, Potassium 3.8, Chloride 95 L, Carbon Dioxide 41 H*, Anion Gap 9.8, BUN 12, Creatinine 1.00, Estimated GFR 55 L, Est GFR ( Amer) 66, Glucose 88, Lactate 1.4, Calcium 8.5, Magnesium 1.7, Total Bilirubin 0.6, AST 37 H, ALT 24, Alkaline Phosphatase 90, Total Protein 5.7 L, Albumin 3.3 L, Globulin 2.4, Albumin/Globulin Ratio 1.4 11/04/23 16:00: Troponin I 0.02 I & O for Last 24 hours: Intake & Output 11/02/23 11/03/23 11/04/23 11/05/23 11:59 11:59 11:59 11:59 Output Total 0 / 0 Balance 0 / 0 Weight 185 lb 7 oz Constitutional Constitutional: no acute distress *Routine HEENT Exam Head: Present normocephalic Eye: Present EOMI and PERRL ENT: Present mucous membranes moist *Routine Neck Exam Neck: Present supple; Absent lymphadenopathy *Routine Respiratory Exam Respiratory: Present decreased breath sounds and diminished air movement Comments: Poor air movement, no wheezing. At baseline *Routine Cardiovascular Exam Cardiovascular: Present RRR *Routine Abdominal Exam Abdominal: Present soft, normoactive bowel sounds and tenderness Comments: On admission patient had mild abdominal distention. Mild left-sided back pain. Mild suprapubic tenderness. *Routine Rectal Exam Rectal:: deferred *Routine Genitalia Exam Genitalia:: deferred *Routine Extremities Exam Extremities: Absent cyanosis, clubbing or edema *Routine Skin Exam Skin: Present warm; Absent rash Comments: Well-perfused, significant ecchymosis and skin thinning from years of tobacco use, sun exposure and her chronic/recurrent prednisone use, no open wounds *Routine Neurological Exam Neurological: Present alert and oriented X3 Comments: Right-sided facial drooping with somewhat flattened nasolabial fold. Moves all extremities spontaneously but left leg and arm are weak, 4/5 compared to the right. Reflexes are symmetric. Assessment and Plan *Assessment and plan (1) Generalized weakness: Status: Acute Category: Medical Code(s): R53.1 - Weakness (2) Hemiplegia affecting left nondominant side: Status: Acute Category: Medical Code(s): G81.94 - Hemiplegia, unspecified affecting left nondominant side (3) Frequent falls: Status: Acute Category: Medical Code(s): R29.6 - Repeated falls (4) Chronic hypoxemic respiratory failure: Status: Chronic Category: Medical Code(s): J96.11 - Chronic respiratory failure with hypoxia (5) COPD (chronic obstructive pulmonary disease): Status: Chronic Qualifiers: COPD type: unspecified COPD Qualified Code(s): J44.9 - Chronic obstructive pulmonary disease, unspecified Category: Medical Code(s): J44.9 - Chronic obstructive pulmonary disease, unspecified (6) CKD (chronic kidney disease): Status: Chronic Qualifiers: Chronic kidney disease stage: stage 3 (moderate) Chronic kidney disease stage 3 subtype: unspecified whether 3a or 3b Qualified Code(s): N18.30 - Chronic kidney disease, stage 3 unspecified Category: Medical Code(s): N18.9 - Chronic kidney disease, unspecified (7) CAD (coronary artery disease): Status: Chronic Qualifiers: Coronary Disease-Associated Artery/Lesion type: [place] artery [place] vs. transplanted heart: [place] heart Associated angina: with other forms of angina Qualified Code(s): I25.118 - Atherosclerotic heart disease of [place] coronary artery with other forms of angina pectoris Category: Medical Code(s): I25.10 - Atherosclerotic heart disease of [place] coronary artery without angina pectoris (8) Hypertension: Status: Chronic Qualifiers: Hypertension type: primary hypertension Qualified Code(s): I10 - Essential (primary) hypertension Category: Medical Code(s): I10 - Essential (primary) hypertension Plan 1. Hemiplegia with significant stroke risk. Workup in the ER couple of days was negative. MRI was ordered on admission to the hospital which is also age-appropriate with no evidence of acute stroke. I do not really know how to explain her left-sided weakness but it certainly present and objectively demonstrated. I do think high likelihood of small stroke is still in play, do not see any reason at this point to scan spine given the cerebral nature of the lesion with right-sided nasolabial flattening in the left arm and leg weakness. Will obtain PT and OT evaluation. I talked to her about possibly doing skilled care to try to some therapy given her overall markedly debilitated state and her frequent falls. She is willing to entertain this idea. 2. Significant [id number] with chronic hypoxic respiratory failure. Appreciate Dr. Ramírez input. Will continue therapy for this and oxygen. I agree with no antibiotics or steroids at this point. Patient is clearly end-stage from this disease. I have brought up hospice care for her in the past. She is considering it. She is familiar with hospice as her sister from end-stage COPD with hospice at home. I would like to try to maximize therapy if we could and get her a little bit more functional before we consider this if this is possible. 3. Chronic kidney disease-creatinine stable at this point. I reviewed her home medications and reconciled the ones I wish to restart. 4. Coronary [id number] negative. 5. Multiple anxiety depression overlay. Will hold fluoxetine given her nausea. Will continue her clonazepam for significant anxiety. 6. Nausea with mild abdominal pain. Continue promethazine. Check abdominal films. Check labs in the morning to follow metabolic issues
[2023-11-04] MEDS: PROMETHAZINE HCL 25MG/ML 1ML VIAL 25 MG IV (18:05)
[2023-11-04] MEDS: SODIUM CHLORIDE 0.9% 25ML BAG 25 ML IV (18:05)
[2023-11-04] MEDS: MORPHINE 2MG/ML SYRINGE 2 MG IV (18:05)
--- NOTE | 2023-11-04 18:19 | PC.NURSE ---
patient was assisted x1 to the bathroom without issues, increased O2 to 3L during ambulation. Pt c/o aching pain in her bilateral lower extremities, which was managed with PRN dose of morphine. Patient reported onset of nausea after eating dinner, which was managed with PRN dose of phenergan. O2 was returned to 2L after pt returned to the bed.
[2023-11-04 18:49] VITALS: PULSE 68
[2023-11-04] MEDS: BUDESONIDE 0.5MG/2ML NEB 0.5 MG IH (18:49)
[2023-11-04] MEDS: IPRATROPIUM/ALBUTEROL 3 ML NEB IH (18:49)
[2023-11-04 18:51] VITALS: PULSE 66
[2023-11-04 19:31] LABS: Troponin I 0.02 ng/ml (0.00-0.034)
[2023-11-04 20:00] VITALS: BP 137/71; PULSE 66; PULSE 67; RESP 20; TEMP 36.6; O2SAT 100; O2SAT 96
[2023-11-04] MEDS: ASPIRIN EC 81MG TABLET 81 MG PO (21:18)
[2023-11-04] MEDS: clonazePAM 0.5MG TABLET 1 MG PO (21:19)
[2023-11-05] VITALS (11 sets, daily range): BP systolic 129–191; BP diastolic 46–98; PULSE 54–80; RESP 16–20; TEMP 36.4–36.9; O2SAT 90–100; BMI 26.4
[2023-11-05] MEDS: BUDESONIDE 0.5MG/2ML NEB 0.5 MG IH ×2 (06:32→18:22)
[2023-11-05] MEDS: IPRATROPIUM/ALBUTEROL 3 ML NEB IH ×4 (06:33→22:57)
[2023-11-05 06:48] LABS: Basophils % 0.6 % (0.1-2.0); Eosinophils # 0.5 K/mm3 (0.0-0.4); Eosinophils % 9.2 % (0.1-12.0); Hematocrit 29.6 % (37.0-47.0); Hemoglobin 9.6 g/dL (12.2-16.2); Lymphocytes # 1.6 K/mm3 (0.7-4.5); Lymphocytes % 30.6 % (10-50); Mean Corpuscular HGB Conc 32.5 g/dL (31.8-35.4); Mean Corpuscular Volume 92.3 fl (81-99); Mean Platelet Volume 9.2 fl (7.4-10.4); Monocytes # 0.3 K/mm3 (0.1-1.0); Monocytes % 5.4 % (1.7-9.3); Neutrophils # 2.8 K/mm3 (1.8-7.8); Neutrophils % 54.2 % (37.0-80.0); Platelet Count 158 K/mm3 (142-424); Red Blood Count 3.21 M/mm3 (4.20-5.40); Red Cell Distribution Width 14.6 % (11.5-17.5); White Blood Count 5.1 K/mm3 (4.8-10.8)
[2023-11-05 07:15] LABS: Carbon Dioxide 44 mmol/L (22.0-30.0)
[2023-11-05 07:25] LABS: Anion Gap 0.7 mEq/L (5-15); Blood Urea Nitrogen 11 mg/dl (7-17); Chloride 97 mmol/L (98-107); Creatinine Clearance Estimated 68 mL/min (50-200); Estimated Glomerular Filt Rate 55 ml/min (>60); GFR (African American) 66 ML/MIN (>60); Glucose 82 mg/dl (74-100); Potassium 3.7 mmoL/L (3.5-5.1); Sodium 138 mmol/L (136-145)
[2023-11-05] MEDS: PROMETHAZINE HCL 25MG/ML 1ML VIAL 25 MG IV (07:31)
[2023-11-05] MEDS: SODIUM CHLORIDE 0.9% 25ML BAG 25 ML IV (07:31)
--- NOTE | 2023-11-05 07:40 | P.PN_ITS ---
Subjective *Date: 11/05/23 *Time: 07:40 Interval history: Patient was stable hemodynamically and oxygenation nunez through the night, her main complaint is still intractable nausea. Phenergan helps somewhat. Morphine has helped somewhat with her air hunger. Once again, reviewed pulmonary consultation note, appreciate input. Reviewed x-rays, labs and abdominal films that were reported out overnight. Medical Exam Vital signs and Labs for Last 24 Hours: Vital Signs Temp Pulse Pulse Resp BP Pulse Ox O2 Del Method 11/05/23 06:43 Nasal Cannula 11/05/23 06:33 65 11/05/23 06:33 68 11/05/23 06:33 98 Nasal Cannula 11/05/23 05:00 Nasal Cannula 11/05/23 04:00 97.6 F 56 L 20 131/70 98 Nasal Cannula 11/05/23 04:00 60 11/05/23 03:00 Nasal Cannula 11/05/23 01:00 Nasal Cannula 11/04/23 23:00 Nasal Cannula 11/04/23 21:00 Nasal Cannula 11/04/23 20:00 100 Nasal Cannula 11/05/23 00:00 54 L 11/05/23 00:00 98.3 F 58 L 16 129/46 L 100 Nasal Cannula 11/04/23 20:00 67 11/04/23 20:00 97.9 F 66 20 137/71 96 Nasal Cannula 11/04/23 18:55 Nasal Cannula 11/04/23 18:52 Nasal Cannula 11/04/23 18:51 66 11/04/23 18:49 68 11/04/23 16:00 60 11/04/23 16:00 97.8 F 72 19 132/66 94 L Nasal Cannula 11/04/23 14:00 97.6 F 69 20 120/69 94 L Nasal Cannula 11/04/23 17:00 Nasal Cannula 11/04/23 15:12 Nasal Cannula 11/04/23 14:43 Nasal Cannula 11/04/23 13:00 Nasal Cannula O2 Flow Rate FiO2 11/05/23 06:43 11/05/23 06:33 11/05/23 06:33 11/05/23 06:33 2 11/05/23 05:00 2 11/05/23 04:00 2 11/05/23 04:00 11/05/23 03:00 11/05/23 01:00 2 11/04/23 23:00 2 11/04/23 21:00 2 11/04/23 20:00 2 11/05/23 00:00 11/05/23 00:00 2 11/04/23 20:00 11/04/23 20:00 2 11/04/23 18:55 2 11/04/23 18:52 2 28 11/04/23 18:51 11/04/23 18:49 11/04/23 16:00 11/04/23 16:00 3 11/04/23 14:00 3 11/04/23 17:00 2 11/04/23 15:12 2 11/04/23 14:43 2 11/04/23 13:00 2 Intake and Output 11/04/23 11/05/23 11/05/23 19:59 03:59 11:59 Intake Total 694 / 694 Output Total 0 / 0 0 / 0 0 / 0 Balance 0 / 694 694 / 694 0 / 694 Intake: Intake, Oral Amount 240 / 240 Intake, Total IV Amount 454 / 454 0.9 % Sodium Chloride 1000ML 1, 454 / 454 000 ml @ 50 mls/hr IV .Q20H [facility] Rx#:[id number] Output: Output, Urine Amount 0 / 0 0 / 0 0 / 0 Other: Number of Voids 0 Number of Unmeasured Voids 1 1 Weight 185 lb 7 oz 185 lb 0.014 oz Patient Weight 11/05/23 11:59 Weight 185 lb 0.014 oz Laboratory Results - last 24 hr 11/04/23 13:40: WBC 7.7, RBC 3.38 L, Hgb 10.3 L, Hct 30.7 L, MCV 90.9, MCH 30.6, MCHC 33.6, RDW 14.5, Plt Count 178, MPV 9.6, Neut % (Auto) 75.2, Lymph % (Auto) 16.3, [place] % (Auto) 4.6, Eos % (Auto) 3.6, Baso % (Auto) 0.3, Neut # (Auto) 5.8, Lymph # (Auto) 1.3, [place] # (Auto) 0.4, Eos # (Auto) 0.3, Baso # (Auto) 0.0, Sodium 142, Potassium 3.8, Chloride 95 L, Carbon Dioxide 41 H*, Anion Gap 9.8, BUN 12, Creatinine 1.00, Estimated GFR 55 L, Est GFR ( Amer) 66, Glucose 88, Lactate 1.4, Calcium 8.5, Magnesium 1.7, Total Bilirubin 0.6, AST 37 H, ALT 24, Alkaline Phosphatase 90, Total Protein 5.7 L, Albumin 3.3 L, Globulin 2.4, Albumin/Globulin Ratio 1.4 11/04/23 16:00: Troponin I 0.02 11/04/23 18:37: Troponin I 0.02 11/05/23 06:32: WBC 5.1 D, RBC 3.21 L, Hgb 9.6 L, Hct 29.6 L, MCV 92.3, MCH 30.0, MCHC 32.5, RDW 14.6, Plt Count 158, MPV 9.2, Neut % (Auto) 54.2, Lymph % (Auto) 30.6, [place] % (Auto) 5.4, Eos % (Auto) 9.2, Baso % (Auto) 0.6, Neut # (Auto) 2.8, Lymph # (Auto) 1.6, [place] # (Auto) 0.3, Eos # (Auto) 0.5 H, Baso # (Auto) 0.0, Sodium 138, Potassium 3.7, Chloride 97 L, Carbon Dioxide 44 H*, Anion Gap 0.7 L, BUN 11, Creatinine 1.00, Estimated Creat Clear 68, Estimated GFR 55 L, Est GFR ( Amer) 66, Glucose 82, Calcium 8.0 L I & O for Labs for Last 24 Hours: Intake & Output 11/02/23 11/03/23 11/04/23 11/05/23 11:59 11:59 11:59 11:59 Intake Total 694 / 694 Output Total 0 / 0 Balance 694 / 694 Weight 185 lb 0.014 oz Comment:: Alert, oriented x 3. In no obvious distress but looks ill and tired. Lungs have poor air movement, scattered rhonchi but at baseline. Heart rate regular. Abdomen slightly distended, soft. Complains of nausea with palpation. No extremity edema. Neurologically she remains weak on the left side with 4/5 strength with hip flexors and proximal and distal arm musculature. Assessment and Plan *Assessment and plan (1) Generalized weakness: Status: Acute Category: Medical Code(s): R53.1 - Weakness (2) Hemiplegia affecting left nondominant side: Status: Acute Category: Medical Code(s): G81.94 - Hemiplegia, unspecified affecting left nondominant side (3) Frequent falls: Status: Acute Category: Medical Code(s): R29.6 - Repeated falls (4) Chronic hypoxemic respiratory failure: Status: Chronic Category: Medical Code(s): J96.11 - Chronic respiratory failure with hypoxia (5) COPD (chronic obstructive pulmonary disease): Status: Chronic Qualifiers: COPD type: unspecified COPD Qualified Code(s): J44.9 - Chronic obstructive pulmonary disease, unspecified Category: Medical Code(s): J44.9 - Chronic obstructive pulmonary disease, unspecified (6) CKD (chronic kidney disease): Status: Chronic Qualifiers: Chronic kidney disease stage: stage 3 (moderate) Chronic kidney disease stage 3 subtype: unspecified whether 3a or 3b Qualified Code(s): N18.30 - Chronic kidney disease, stage 3 unspecified Category: Medical Code(s): N18.9 - Chronic kidney disease, unspecified (7) CAD (coronary artery disease): Status: Chronic Qualifiers: Coronary Disease-Associated Artery/Lesion type: [place]bud artery [place] vs. transplanted heart: rosebud heart Associated angina: with other forms of angina Qualified Code(s): I25.118 - Atherosclerotic heart disease of [place] coronary artery with other forms of angina pectoris Category: Medical Code(s): I25.10 - Atherosclerotic heart disease of [place] coronary artery without angina pectoris (8) Hypertension: Status: Chronic Qualifiers: Hypertension type: primary hypertension Qualified Code(s): I10 - E ssential (primary) hypertension Category: Medical Code(s): I10 - Essential (primary) hypertension (9) Hypocalcemia: Status: Acute Category: Medical Code(s): E83.51 - Hypocalcemia Plan 1. Hemiplegia with significant stroke risk. Workup in the ER couple of days was negative. MRI was ordered on admission to the hospital which is also age-appropriate with no evidence of acute stroke. I do not really know how to explain her left-sided weakness but it certainly present and objectively demonstrated. I do think high likelihood of small stroke is still in play, do not see any reason at this point to scan spine given the cerebral nature of the lesion with right-sided nasolabial flattening in the left arm and leg weakness. Will obtain PT and OT evaluation. I talked to her about possibly doing skilled care to try to some therapy given her overall markedly debilitated state and her frequent falls. She is willing to entertain this idea. 2. Significant [id number] with chronic hypoxic respiratory failure. Appreciate Dr. Ramírez input. Will continue therapy for this and oxygen. I agree with no antibiotics or steroids at this point. Patient is clearly end-stage from this disease. I have brought up hospice care for her in the past. She is considering it. She is familiar with hospice as her sister from end-stage COPD with hospice at home. I would like to try to maximize therapy if we could and get her a little bit more functional before we consider this if this is possible. 3. Chronic kidney disease-creatinine stable at this point. I reviewed her home medications and reconciled the ones I wish to restart. 4. Coronary uldkpaw-mvptlo-kvvcgfoxa negative. 5. Multiple anxiety depression overlay. Will hold fluoxetine given her nausea. Will continue her clonazepam for significant anxiety. 6. Nausea with mild abdominal pain. Continue promethazine. Check abdominal films. Check labs in the morning to follow metabolic issues Plan update for 11/05/23-patient is stable from a respiratory and hemodynamic standpoint. Her marked nausea has been a problem for several weeks. Her acute abdominal series shows no evidence of obstruction, I will trial low-dose Reglan to see if motility issues are a problem. Continue promethazine cautiously given possible drug interaction. In regards to her left hemiplegia its unchanged. Again has not noted in the H&P I do not really have a good explanation other than ischemic event it is not visible on the MRI scan. She certainly could have a myopathy/neuropathy/other neurologic sequela but I am unsure why it would only give us left-sided symptoms. Regardless-of etiology-it certainly a real finding and preventing her from doing her normal self-care at home. PT and OT evaluation. I do think a skilled care stay would be beneficial for this patient while we make further decisions about care. Social work and care management are involved. Low calcium today after hydration, will replace intravenously. Blood counts have slightly dropped but I think this is a volume issue. Will watch tomorrow
[2023-11-05] MEDS: CALCIUM GLUCONATE 2,000 MG in 0.9 % SODIUM CHLORIDE 100 ML 60 MG IV (08:31)
[2023-11-05] MEDS: clonazePAM 0.5MG TABLET 0.5 MG PO ×2 (08:32→13:13)
[2023-11-05] MEDS: ENOXAPARIN 40MG/0.4ML SYRINGE 40 MG SQ (08:32)
--- NOTE | 2023-11-05 09:25 | PC.NURSE ---
patient up to chair at this time
--- NOTE | 2023-11-05 09:29 | HMH.PTEV ---
Physical Therapy Evaluation Rehab PT IP Evaluation Start: 11/04/23 12:45 Freq: ONCE Status: Active Protocol: Document 11/05/23 09:10 ISSACBRAD (Rec: 11/05/23 09:29 [email or web address] [id number]) Subjective/History History History Pt is a 73 y/o female who presented to [facility] on 11/04/23 with complaint of increasing weakness and failings of her left side being weak. Per history & physical note, her left arm and leg were weak on exam given her baseline and she was found to have a right- sided facial droop. Admitted to hospital for possible completed stroke and ongoing weakness with multiple falls at home.In addition patient reports increasing abdominal nausea, pain when she stands up, feeling that there is a band around her stomach and just general malaise and feeling sick. Aprroximately 4 days prior, she called her MD and stated that she did not think her left leg was working well but noted that it was improving after she had gotten up from her chair and moved around. She ended up coming to the ER because of weakness and some chest pain over the weekend, CTA of neck and CT scan of head were unremarkable and she was discharged home. Medical History: COPD, chronic hypoxic respiratory failure, HLD, Dyspnea on exertion, Dysphagia,CHF, CKD, Bradycardia, Subjective Subjective Pt reports she lives in a modular style home with 1 small step to enter. Pt reports she lives at home with her who helps her walk some when needed, denies using a walker or a cane. Pt states she thinks she has a walker at home. Pt denies recent falls. Pt reports she is independent with ADLs and her cooks and cleans. Pt reports she uses 2-L NC at baseline and has a portable unit. Pt currently on 1 L NC. Pt reports she was having some left-sided weakness which has improved some but she continues to have tingling of the left arm and the left leg from the knee to the foot. Pt also reports constant nausea as well. Pt had a brain MRI on 11/04/22 with impression of Age-appropriate atrophy and mild chronic ischemic/gliotic changes, including the zuri. No acute intracranial abnormality. New diagnosis of cancer in past 12 No months? Rehab PT IP Eval Objective Appearance Patient Behavior Appropriate,Cooperative Patient Orientation Person,Place,Name,Birthday Difficulty following instructions none Speech Pattern Clear,Appropriate Ambulation Patient Able to Ambulate Yes Ambulation Observation IP General Gait Pattern Observation Shuffling Step Ambulation Distance (feet) 5 Ambulation Assistive Device None Ambulation Ability Minimal x 1 (25% assist) Balance Ability to Arise Able, uses arms to help Sitting Balance Steady, safe Standing Balance Steady, wide stance Dynamic Sitting Balance Ability Fair Dynamic Standing Balance Ability Fair Transfers Bed Transfer Ability Contact Guard/Hand Hold Sit to Stand Bed Transfer Ability Contact Guard/Hand Hold ROM LLE PT ROM Status WFL MMT LLE PT MMT WFL Rehab PT IP prob,goals,plan Problems Date of Evaluation: 11/05/23 PT IP Problems Bed Mobility,Transfers,Gait, Balance,Self care,Safety Rehab Potential Rehab Potential Good Equipment Needs Assistive Devices Rolling / Wheeled Walker Plan PT Intervention Plan Bed Mobility,Transfers,Gait, Balance,Self care,Safety, Therapeutic Exercise Other Intervention Plan 1-2x/day PT Plan Frequency Daily Duration LOS Discharge Goals Bed Transfer Ability Supervision/Stand by Sit to Stand Chair Transfer Ability Supervision/Stand by Ambulation Assistive Device Rolling Walker Ambulation Distance (feet) 25 Discharge Plan PT Discharge Plan Pt will benefit from skilled physical therapy while admitted to [facility]. Pt is currently most appropriate for rehab placement, but could return home with family assist and home health therapy recommended if she significantly improves medically and with overall mobility. Without skilled therapy pt is at an increased risk for falls, fractures, wounds and increased burden of care. Eval Complexity Eval Charge Codes 22117 - Moderate Complexity PHYSICIAN CERTIFICATION: I certify the specified therapy services for Shayy Black are required, authorized, and reviewed every 30 days.
--- NOTE | 2023-11-05 09:47 | P.PN_ITS ---
Subjective *Date: 11/05/23 *Time: 12:14 Interval history: No acute respiratory events overnight. Denies any new respiratory complaints Pulmonology Exam Inpatient Vital signs and Labs for Last 24 Hours: Temp Pulse Resp BP Pulse Ox O2 Del Method O2 Flow Rate 98.2 F 65 19 135/73 91 L Nasal Cannula 2 11/05/23 08:00 11/05/23 08:00 11/05/23 08:00 11/05/23 08:00 11/05/23 08:00 11/05/23 09:00 11/05/23 09:00 FiO2 28 11/04/23 18:52 Laboratory Results - last 24 hr 11/04/23 13:40: WBC 7.7, RBC 3.38 L, Hgb 10.3 L, Hct 30.7 L, MCV 90.9, MCH 30.6, MCHC 33.6, RDW 14.5, Plt Count 178, MPV 9.6, Neut % (Auto) 75.2, Lymph % (Auto) 16.3, [place] % (Auto) 4.6, Eos % (Auto) 3.6, Baso % (Auto) 0.3, Neut # (Auto) 5.8, Lymph # (Auto) 1.3, [place] # (Auto) 0.4, Eos # (Auto) 0.3, Baso # (Auto) 0.0, Sodium 142, Potassium 3.8, Chloride 95 L, Carbon Dioxide 41 H*, Anion Gap 9.8, BUN 12, Creatinine 1.00, Estimated GFR 55 L, Est GFR ( Amer) 66, Glucose 88, Lactate 1.4, Calcium 8.5, Magnesium 1.7, Total Bilirubin 0.6, AST 37 H, ALT 24, Alkaline Phosphatase 90, Total Protein 5.7 L, Albumin 3.3 L, Globulin 2.4, Albumin/Globulin Ratio 1.4 11/04/23 16:00: Troponin I 0.02 11/04/23 18:37: Troponin I 0.02 11/05/23 06:32: WBC 5.1 D, RBC 3.21 L, Hgb 9.6 L, Hct 29.6 L, MCV 92.3, MCH 30.0, MCHC 32.5, RDW 14.6, Plt Count 158, MPV 9.2, Neut % (Auto) 54.2, Lymph % (Auto) 30.6, [place] % (Auto) 5.4, Eos % (Auto) 9.2, Baso % (Auto) 0.6, Neut # (Auto) 2.8, Lymph # (Auto) 1.6, [place] # (Auto) 0.3, Eos # (Auto) 0.5 H, Baso # (Auto) 0.0, Sodium 138, Potassium 3.7, Chloride 97 L, Carbon Dioxide 44 H*, Anion Gap 0.7 L, BUN 11, Creatinine 1.00, Estimated Creat Clear 68, Estimated GFR 55 L, Est GFR ( Amer) 66, Glucose 82, Calcium 8.0 L I & O for Labs for Last 24 Hours: Intake & Output 11/02/23 11/03/23 11/04/23 11/05/23 23:59 23:59 23:59 23:59 Intake Total 1260 / 1260 Output Total 0 / 0 0 / 0 Balance 0 / 694 1260 / 1260 Weight 185 lb 7 oz 185 lb 0.014 oz Constitutional: Present mild distress Head: Present normocephalic and atraumatic ENT: Present normal exam, normal oropharynx and mucous membranes moist Neck: Present normal inspection and full ROM Respiratory: Present able to speak in complete sentences; Absent prolonged expiratory phase, respiratory distress or wheezes Cardiac: Present S1/S2, Tachycardia and radial pulses present GI: Present soft and distention; Absent tenderness or guarding Rectal (female): Present deferred (female): Present deferred Skin: Present intact; Absent cyanosis or jaundice Neuro: Present alert, awake and oriented x 3 Extremities: Present normal inspection and edema; Absent clubbing or cyanosis Psychiatric: Present normal affect and cooperative Assessment and Plan *Assessment and plan (1) Chronic hypoxemic respiratory failure: Status: Chronic Category: Medical Code(s): J96.11 - Chronic respiratory failure with hypoxia (2) COPD (chronic obstructive pulmonary disease): Status: Chronic Qualifiers: COPD type: unspecified COPD Qualified Code(s): J44.9 - Chronic obstructive pulmonary disease, unspecified Category: Medical Code(s): J44.9 - Chronic obstructive pulmonary disease, unspecified Plan Ms. Black is a 73-year-old female greater than 30 PPD last in pulmonary clinic in November 2022 following for COPD at the time and budesonide/formoterol nebulizers and Spiriva HandiHaler, azithromycin Friday and chronic hypoxic respiratory failure on long-term oxygen therapy was admitted to the hospital clinic as concerning for worsening respiratory status and weakness. Patient admits worsening respiratory send for the last week he denies any worsening cough or any productive phlegm. Auscultation mild expiratory wheezing not significantly changed from her baseline. Patient saturating 98% on 2 L nasal cannula, weaned to 1 L. Chest x-ray from this admission reviewed, hyperinflated lungs, no evidence of dense consolidation/airspace disease noted. Interval update: No acute respiratory events overnight. Continue to manage 1 L nasal and supplementation with saturation 98% on 1 L, weaned to room air patient complaining of immediate worsening respiratory distress and placed back on 1 L. And currently admitted with complaint of anxiety contributing to her current symptom burden Plan: -Continue oxygen supplementation as needed to maintain O2 saturation goal of 90 to 95%. -Incentive spirometry and flutter valve -Continue DuoNebs every 6 hours along with Pulmicort every 12 scheduled -No need for antibiotics or steroids at this point of time as patient respiratory status at baseline with no evidence of COPD exacerbation. Thank you for involving pulmonary in this patient care. Will continue to follow.
--- NOTE | 2023-11-05 10:15 | SW/DCPLANNER ---
Addendum entered by [facility] 11/07/23 07:47: The plan for this patient is to discharge to [facility] today SNF level of care: I have updated Tami figueroa/ Levar Flanagan. Addendum entered by [facility] 11/06/23 14:42: The plan for this patient is to discharge to [facility] tomorrow [facility] level of care. Addendum entered by [facility] 11/05/23 15:03: Tami figueroa/ Levar Flanagan stated that she can accept this patient once medically stable for discharge. Addendum entered by [facility] 11/05/23 13:28: Tami figueroa/ Levar Flanagan will follow up w/ patient onsite at 2PM today. Original Note: I spoke w/ this patient regarding plans once medically stable for discharge. PT/OT evaluated the patient and recommended SNF level of care at time of discharge. Patient is agreeable to placement and prefers [facility]. Patient information has been faxed to [facility] at this time: I will follow up once patient information is reviewed. Discharge date is unknown at this time.
[2023-11-05] MEDS: ACETAMINOPHEN 325MG TAB 650 MG PO (10:16)
--- NOTE | 2023-11-05 10:46 | HMH.OTEV ---
OT Inpatient Evaluation Rehab OT IP Evaluation Start: 11/04/23 12:45 Freq: ONCE Status: Active Protocol: Document 11/05/23 10:36 MIGUELINA (Rec: 11/05/23 10:46 MIGUELINA [id number]) Rehab OT IP Assessment Subjective History 73-year-old white female, long patient of mine, who with long history of COPD secondary to many years of tobacco use, who has been oxygen requirement and neb requiring over the past 3 to 4 years with chronic hypoxic respiratory failure. About 4 days ago she called me and stated that she did not think her left leg was working well but noted that it was improving after she had gotten up from her chair and moved around. She ended up coming to the ER because of weakness and some chest pain over the weekend, CTA of neck and CT scan of head were unremarkable and she was discharged home. She came to see me in the office today with increasing weakness, and failings of her left side being weak. Her left arm and leg were weak on exam given her baseline and she was found to have a right- sided facial droop. Admitted to hospital for possible completed stroke and ongoing weakness with multiple falls at home. In addition patient reports increasing abdominal nausea, pain when she stands up, feeling that there is a band around her stomach and just general malaise and feeling sick. Patient lives at home with . Completed all ADLs and fx'l mobility independently. Subjective I can get up. Instructed Patient on proper hand and foot placement to complete bed mobility from supine->sit @ EOB->SPT with usage of RW to chair requiring Min A. No LOB noted. Left Patient sitting upright in chair with needs met at end of session. Objective Patient Orientation Person,Place,Name,Age,Birthday ,Year Right Upper Extremity Gross ROM WFL Left Upper Extremity Gross ROM WFL Bed Mobility bed mobility - supine/sit Assist Level Minimal x 1 (25% assist) Transfer Training Sit/Stand/Pivot Transfer Assist Level Minimal x 1 (25% assist) Chair Transfer Ability Minimal x 1 (25% assist) Chair Transfer Technique Sit to/from Ambulatory Chair Transfer Assistive Devices Rolling Walker Lower Body Dressing Ability Moderate Assistance Rehab OT IP prob,goals,plan Problems Date of Evaluation: 11/05/23 OT IP Problems Bed Mobility,Transfers,Balance ,Self care,Safety Rehab Potential Rehab Potential Good Equipment Needs Assistive Devices Rolling / Wheeled Walker Plan OT intervention Plan Bed Mobility,Transfers,Balance ,Self care,Safety,Therapeutic Exercise OT Plan Frequency Daily Duration LOS Discharge Goals Bed Mobility Ability Assistance x1 Sit to Stand Chair Transfer Ability Contact Guard/Hand Hold Chair Transfer Ability Contact Guard/Hand Hold Chair Transfer Technique Sit to/from Ambulatory Chair Transfer Assistive Devices Rolling Walker Lower Body Dressing Ability Minimal Assistance Discharge Plan OT Discharge Plan Recommend Placement at this time due to needing increase assistance for ADLs and fx'l mobility. Patient feels she is unsteady on feet and will benefit from rehabilitation. Patient to continue skilled IP services while here at [facility]. Eval Complexity Eval Charge Codes 81811 - Low Complexity PHYSICIAN CERTIFICATION: I certify the specified therapy services for Shayy Black are required, authorized, and reviewed every 30 days.
[2023-11-05] MEDS: MORPHINE 2MG/ML SYRINGE 2 MG IV ×2 (13:42→21:08)
[2023-11-05] MEDS: 0.9 % SODIUM CHLORIDE 1000ML 1,000 ML 50 ML IV (13:45)
[2023-11-05] MEDS: METOCLOPRAMIDE HCL 10MG/2ML VIAL 5 MG IVP (16:38)
[2023-11-05] MEDS: clonazePAM 0.5MG TABLET 1 MG PO (21:02)
[2023-11-05] MEDS: PANTOPRAZOLE 40MG TABLET 40 MG PO (21:02)
[2023-11-05] MEDS: ASPIRIN EC 81MG TABLET 81 MG PO (21:02)
[2023-11-06] VITALS (13 sets, daily range): BP systolic 130–188; BP diastolic 62–90; PULSE 61–77; RESP 16–20; TEMP 36.6–36.7; O2SAT 93–100; BMI 26.4
[2023-11-06] MEDS: IPRATROPIUM/ALBUTEROL 3 ML NEB IH ×4 (05:50→23:36)
[2023-11-06] MEDS: BUDESONIDE 0.5MG/2ML NEB 0.5 MG IH ×2 (05:51→18:13)
--- NOTE | 2023-11-06 06:05 | PC.NURSE ---
Patient has rested well this shift with no acute changes, Patient is still weaker on left side, able to ambulate with minimal assistance. Has been up to bathroom, does get very short of breath with excertion. Patient complained of pain at beginning of shift- medicated per orders.
--- NOTE | 2023-11-06 07:44 | EXP.ACUTE.PN ---
Subjective *Date: 11/06/23 *Time: 07:44 Interval history: Patient continues to feel sick, tired and very weak. She reports continued nausea. She has not vomited. She has had good urine output but no stool. I reviewed labs from yesterday, labs this morning are not completed, and reviewed x-rays with patient. Medical Exam Vital signs and Labs for Last 24 Hours: Vital Signs Temp Pulse Pulse Resp BP Pulse Ox O2 Del Method 11/06/23 05:50 68 11/06/23 05:50 66 11/06/23 05:50 93 L Nasal Cannula 11/06/23 04:15 61 11/06/23 04:00 98 F 77 16 155/65 H 99 11/06/23 00:00 64 11/06/23 00:00 98 F 63 16 153/62 H 94 L 11/05/23 20:00 80 11/05/23 22:57 64 11/05/23 22:57 64 11/05/23 20:00 98 F 76 17 168/92 H 90 L Nasal Cannula 11/05/23 19:00 Nasal Cannula 11/05/23 18:23 76 11/05/23 18:23 76 11/05/23 18:23 93 L Nasal Cannula 11/05/23 17:00 Nasal Cannula 11/05/23 15:26 98.4 F 68 18 191/68 H 93 L Nasal Cannula 11/05/23 15:00 Nasal Cannula 11/05/23 13:00 Nasal Cannula 11/05/23 12:00 80 11/05/23 11:37 77 11/05/23 11:37 78 11/05/23 11:11 Nasal Cannula 11/05/23 11:12 98.5 F 64 18 144/98 H 98 Nasal Cannula 11/05/23 09:00 Nasal Cannula 11/05/23 08:00 60 11/05/23 08:00 98.2 F 65 19 135/73 91 L Nasal Cannula 11/05/23 07:47 Nasal Cannula O2 Flow Rate 11/06/23 05:50 11/06/23 05:50 11/06/23 05:50 1 11/06/23 04:15 11/06/23 04:00 11/06/23 00:00 11/06/23 00:00 11/05/23 20:00 11/05/23 22:57 11/05/23 22:57 11/05/23 20:00 11/05/23 19:00 2 11/05/23 18:23 11/05/23 18:23 11/05/23 18:23 2 11/05/23 17:00 2 11/05/23 15:26 1 11/05/23 15:00 2 11/05/23 13:00 2 11/05/23 12:00 11/05/23 11:37 11/05/23 11:37 11/05/23 11:11 2 11/05/23 11:12 2 11/05/23 09:00 2 11/05/23 08:00 11/05/23 08:00 2 11/05/23 07:47 2 Intake and Output 11/05/23 11/06/23 11/06/23 19:59 03:59 11:59 Intake Total 480 / 850 370 / 850 Output Total 0 / 0 Balance 480 / 850 370 / 850 Intake: Intake, Oral Amount 480 / 600 120 / 600 Intake, Total IV Amount 250 / 250 0.9 % Sodium Chloride 1000ML 1, 250 / 250 000 ml @ 50 mls/hr IV .Q20H [facility] Rx#:[id number] Output: Output, Urine Amount 0 / 0 Other: Number of Unmeasured Voids 1 Weight 185 lb Patient Weight 11/06/23 11:59 Weight 185 lb I & O for Labs for Last 24 Hours: Intake & Output 11/03/23 11/04/23 11/05/23 11/06/23 11:59 11:59 11:59 11:59 Intake Total 1260 / 1260 850 / 850 Output Total 0 / 0 0 / 0 Balance 1260 / 1260 850 / 850 Weight 185 lb 0.014 oz 185 lb Comment:: Alert, oriented x 3. In no obvious distress but looks ill and tired. Lungs have poor air movement, scattered rhonchi but at baseline. Heart rate regular. Abdomen slightly distended, soft. Complains of nausea with palpation. No extremity edema. Neurologically she remains weak on the left side with 4/5 strength with hip flexors and proximal and distal arm musculature. Assessment and Plan *Assessment and plan (1) Generalized weakness: Status: Acute Category: Medical Code(s): R53.1 - Weakness (2) Hemiplegia affecting left nondominant side: Status: Acute Category: Medical Code(s): G81.94 - Hemiplegia, unspecified affecting left nondominant side (3) Frequent falls: Status: Acute Category: Medical Code(s): R29.6 - Repeated falls (4) Chronic hypoxemic respiratory failure: Status: Chronic Category: Medical Code(s): J96.11 - Chronic respiratory failure with hypoxia (5) COPD (chronic obstructive pulmonary disease): Status: Chronic Qualifiers: COPD type: unspecified COPD Qualified Code(s): J44.9 - Chronic obstructive pulmonary disease, unspecified Category: Medical Code(s): J44.9 - Chronic obstructive pulmonary disease, unspecified (6) CKD (chronic kidney disease): Status: Chronic Qualifiers: Chronic kidney disease stage: stage 3 (moderate) Chronic kidney disease stage 3 subtype: unspecified whether 3a or 3b Qualified Code(s): N18.30 - Chronic kidney disease, stage 3 unspecified Category: Medical Code(s): N18.9 - Chronic kidney disease, unspecified (7) CAD (coronary artery disease): Status: Chronic Qualifiers: Coronary Disease-Associated Artery/Lesion type: [place] artery [place] vs. transplanted heart: [place] heart Associated angina: with other forms of angina Qualified Code(s): I25.118 - Atherosclerotic heart disease of [place] coronary artery with other forms of angina pectoris Category: Medical Code(s): I25.10 - Atherosclerotic heart disease of [place] coronary artery without angina pectoris (8) Hypertension: Status: Chronic Qualifiers: Hypertension type: primary hypertension Qualified Code(s): I10 - Essential (primary) hypertension Category: Medical Code(s): I10 - Essential (primary) hypertension (9) Hypocalcemia: Status: Acute Category: Medical Code(s): E83.51 - Hypocalcemia Plan 1. Hemiplegia with significant stroke risk. Workup in the ER couple of days was negative. MRI was ordered on admission to the hospital which is also age-appropriate with no evidence of acute stroke. I do not really know how to explain her left-sided weakness but it certainly present and objectively demonstrated. I do think high likelihood of small stroke is still in play, do not see any reason at this point to scan spine given the cerebral nature of the lesion with right-sided nasolabial flattening in the left arm and leg weakness. Will obtain PT and OT evaluation. I talked to her about possibly doing skilled care to try to some therapy given her overall markedly debilitated state and her frequent falls. She is willing to entertain this idea. 2. Significant [id number] with chronic hypoxic respiratory failure. Appreciate Dr. Ramírez input. Will continue therapy for this and oxygen. I agree with no antibiotics or steroids at this point. Patient is clearly end-stage from this disease. I have brought up hospice care for her in the past. She is considering it. She is familiar with hospice as her sister from end-stage COPD with hospice at home. I would like to try to maximize therapy if we could and get her a little bit more functional before we consider this if this is possible. 3. Chronic kidney disease-creatinine stable at this point. I reviewed her home medications and reconciled the ones I wish to restart. 4. Coronary [id number] negative. 5. Multiple anxiety depression overlay. Will hold fluoxetine given her nausea. Will continue her clonazepam for significant anxiety. 6. Nausea with mild abdominal pain. Continue promethazine. Check abdominal films. Check labs in the morning to follow metabolic issues Plan update for 11/05/23-patient is stable from a respiratory and hemodynamic standpoint. Her marked nausea has been a problem for several weeks. Her acute abdominal series shows no evidence of obstruction, I will trial low-dose Reglan to see if motility issues are a problem. Continue promethazine cautiously given possible drug interaction. In regards to her left hemiplegia its unchanged. Again has not noted in the H&P I do not really have a good explanation other than ischemic event it is not visible on the MRI scan. She certainly could have a myopathy/neuropathy/other neurologic sequela but I am unsure why it would only give us left-sided symptoms. Regardless-of etiology-it certainly a real finding and preventing her from doing her normal self-care at home. PT and OT evaluation. I do think a skilled care stay would be beneficial for this patient while we make further decisions about care. Social work and care management are involved. Low calcium today after hydration, will replace intravenously. Blood counts have slightly dropped but I think this is a volume issue. Will watch tomorrow Plan update for 11/06/2023-continues to be stable from a respiratory and hemodynamic standpoint. Continued weakness. Requires PT and OT. Notes reviewed. Plan for skilled care transfer when able for ongoing PT and OT. Patient's lung disease and other diseases have left her with significant weakness and a poor quality of life. We discussed hospice care and she will think about this over the next several weeks. In the meantime, I will await electrolyte numbers to see if she needs further IV calcium. I will give her IV magnesium today along with some Linzess to see if this helps her bowels and nausea. Reglan and Phenergan intravenously have been not super effective in relieving the symptoms.
[2023-11-06 07:54] LABS: Anion Gap 3.4 mEq/L (5-15); Blood Urea Nitrogen 10 mg/dl (7-17); Calcium 8.1 mg/dl (8.4-10.2); Carbon Dioxide 36 mmol/L (22.0-30.0); Chloride 102 mmol/L (98-107); Creatinine Clearance Estimated 68 mL/min (50-200); Estimated Glomerular Filt Rate 71 ml/min (>60); GFR (African American) 86 ML/MIN (>60); Glucose 83 mg/dl (74-100); Potassium 3.4 mmoL/L (3.5-5.1); Sodium 138 mmol/L (136-145)
[2023-11-06 07:55] LABS: Magnesium 1.6 mg/dl (1.6-2.3)
[2023-11-06 08:01] LABS: Basophils % 0.3 % (0.1-2.0); Eosinophils # 0.4 K/mm3 (0.0-0.4); Hematocrit 29.3 % (37.0-47.0); Hemoglobin 9.4 g/dL (12.2-16.2); Lymphocytes # 1.3 K/mm3 (0.7-4.5); Lymphocytes % 27.6 % (10-50); Mean Corpuscular HGB Conc 32.1 g/dL (31.8-35.4); Mean Corpuscular Hemoglobin 29.5 pg (27.0-31.2); Mean Platelet Volume 8.7 fl (7.4-10.4); Monocytes # 0.3 K/mm3 (0.1-1.0); Monocytes % 5.9 % (1.7-9.3); Neutrophils # 2.8 K/mm3 (1.8-7.8); Neutrophils % 58.3 % (37.0-80.0); Platelet Count 155 K/mm3 (142-424); Red Blood Count 3.19 M/mm3 (4.20-5.40); White Blood Count 4.7 K/mm3 (4.8-10.8)
[2023-11-06] MEDS: MAGNESIUM SULFATE IN WATER 2 GM/50 ML PIGGYBACK IV (08:16)
[2023-11-06] MEDS: ENOXAPARIN 40MG/0.4ML SYRINGE 40 MG SQ (08:17)
[2023-11-06] MEDS: clonazePAM 0.5MG TABLET 0.5 MG PO ×2 (08:17→12:47)
[2023-11-06] MEDS: PROMETHAZINE HCL 25MG/ML 1ML VIAL 25 MG IV (08:24)
--- NOTE | 2023-11-06 09:33 | P.PN_ITS ---
Subjective *Date: 11/06/23 *Time: 11:12 Interval history: No acute respiratory events overnight. Stable respiratory symptoms. Denies any new respiratory complaints. Pulmonology Exam Inpatient Vital signs and Labs for Last 24 Hours: Temp Pulse Resp BP Pulse Ox O2 Del Method O2 Flow Rate 98.1 F 70 19 162/90 H 97 Nasal Cannula 2 11/06/23 08:00 11/06/23 08:00 11/06/23 08:00 11/06/23 08:00 11/06/23 08:00 11/06/23 08:00 11/06/23 08:00 FiO2 28 11/04/23 18:52 Laboratory Results - last 24 hr 11/06/23 07:19: WBC 4.7 L, RBC 3.19 L, Hgb 9.4 L, Hct 29.3 L, MCV 92.0, MCH 29.5, MCHC 32.1, RDW 15.0, Plt Count 155, MPV 8.7, Neut % (Auto) 58.3, Lymph % (Auto) 27.6, [place] % (Auto) 5.9, Eos % (Auto) 8.0, Baso % (Auto) 0.3, Neut # (Auto) 2.8, Lymph # (Auto) 1.3, [place] # (Auto) 0.3, Eos # (Auto) 0.4, Baso # (Auto) 0.0, Sodium 138, Potassium 3.4 L, Chloride 102, Carbon Dioxide 36 H, Anion Gap 3.4 L, BUN 10, Creatinine 0.80, Estimated Creat Clear 68, Estimated G FR 71, Est GFR ( Amer) 86 D, Glucose 83, Calcium 8.1 L, Magnesium 1.6 I & O for Labs for Last 24 Hours: Intake & Output 11/03/23 11/04/23 11/05/23 11/06/23 23:59 23:59 23:59 23:59 Intake Total 1739 610 / 610 Output Total 0 / 0 0 / 0 0 / 0 Balance 0 / 694 1739 610 / 610 Weight 185 lb 7 oz 185 lb 0.014 oz 185 lb Constitutional: Present mild distress Head: Present normocephalic and atraumatic ENT: Present normal exam, normal oropharynx and mucous membranes moist Neck: Present normal inspection and full ROM Respiratory: Present able to speak in complete sentences; Absent prolonged expiratory phase, respiratory distress or wheezes Cardiac: Present S1/S2, Tachycardia and radial pulses present GI: Present soft and distention; Absent tenderness or guarding Rectal (female): Present deferred (female): Present deferred Skin: Present intact; Absent cyanosis or jaundice Neuro: Present alert, awake and oriented x 3 Extremities: Present normal inspection and edema; Absent clubbing or cyanosis Psychiatric: Present normal affect and cooperative Assessment and Plan *Assessment and plan (1) Chronic hypoxemic respiratory failure: Status: Chronic Category: Medical Code(s): J96.11 - Chronic respiratory failure with hypoxia (2) COPD (chronic obstructive pulmonary disease): Status: Chronic Qualifiers: COPD type: unspecified COPD Qualified Code(s): J44.9 - Chronic obstructive pulmonary disease, unspecified Category: Medical Code(s): J44.9 - Chronic obstructive pulmonary disease, unspecified Plan Ms. Black is a 73-year-old female greater than 30 PPD last in pulmonary clinic in November 2022 following for COPD at the time and budesonide/formoterol nebulizers and Spiriva HandiHaler, azithromycin Friday and chronic hypoxic respiratory failure on long-term oxygen therapy was admitted to the hospital clinic as concerning for worsening respiratory status and weakness. Patient admits worsening respiratory send for the last week he denies any worsening cough or any productive phlegm. Auscultation mild expiratory wheezing not significantly changed from her baseline. Patient saturating 98% on 2 L nasal cannula, weaned to 1 L. Chest x-ray from this admission reviewed, hyperinflated lungs, no evidence of dense consolidation/airspace disease noted. Interval update: No acute respiratory events overnight. Denies any new respiratory complaints. Needing intermittent oxygen supplementation. Plan: -Continue oxygen supplementation as needed to maintain O2 saturation goal of 90 to 95%. Wean as tolerated to maintain O2 saturation goal of 90% and above -Incentive spirometry and flutter valve -Continue DuoNebs every 6 hours along with Pulmicort every 12 scheduled -No need for antibiotics or steroids at this point of time as patient respiratory status at baseline with no evidence of COPD exacerbation. Thank you for involving pulmonary in this patient care. Will continue to follow.
[2023-11-06] MEDS: POLYETHYLENE GLYCOL 3350 17 GM PACKET PO (11:51)
[2023-11-06] MEDS: MORPHINE 2MG/ML SYRINGE 2 MG IV ×2 (13:39→20:38)
[2023-11-06] MEDS: 0.9 % SODIUM CHLORIDE 1000ML 1,000 ML 50 ML IV ×2 (14:16→20:39)
[2023-11-06] MEDS: SODIUM CHLORIDE 0.9% 25ML BAG 25 ML IV (18:21)
[2023-11-06] MEDS: METOCLOPRAMIDE HCL 10MG/2ML VIAL 5 MG IVP (18:21)
--- NOTE | 2023-11-06 18:59 | PC.NURSE ---
A&OX4. PT HAS TOLERATED 2L NC WELL THROUGHOUT SHIFT. RESPIRATIONS REGULAR AND UNLABORED. EXPIRATORY RHONCHI AND WHEEZES NOTED THROUGHOUT. +2 PULSES NOTED THROUGHOUT. NO EDEMA NOTED. ACTIVE BOWEL SOUNDS HEARD IN ALL 4 QUADRANTS. SOFT AND NONTENDER ABDOMEN. NO BM THUS FAR. VOIDS PER BATHROOM WITH STANDBY ASSISTANCE. CLEAR YELLOW URINE NOTED. NS INFUSING AT 50ML/HR. 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 PAIN REPORTED ONCE THIS SHIFT WITH PAIN MEDS GIVEN PER MAR. ON REASSESSMENT, PT WAS RESTING WITH EYES CLOSED. PT WAS UP TO THE CHAIR FOR HALF OF THE SHIFT TODAY. PT REPORTED NAUSEA TWICE THIS SHIFT AND RECEIVED MEDS PER MAR. ON REASSESSMENT, PT DENIED NAUSEA. BED IN LOWEST POSITION. CALL LIGHT WITHIN REACH. VSS.
--- NOTE | 2023-11-06 20:00 | PC.NURSE ---
Patient moved over to room 280- a/o x4. oriented to room and surroundings. Pt introduced to staff and call light.
[2023-11-06] MEDS: PANTOPRAZOLE 40MG TABLET 40 MG PO (20:28)
[2023-11-06] MEDS: METOPROLOL SUCCINATE XL 25MG TABLET 12.5 MG PO (20:28)
[2023-11-06] MEDS: clonazePAM 0.5MG TABLET 1 MG PO (20:28)
[2023-11-06] MEDS: ASPIRIN EC 81MG TABLET 81 MG PO (20:28)
[2023-11-07 04:00] VITALS: BP 132/64; PULSE 65; RESP 17; TEMP 36.5; O2SAT 96; BMI 26.9
--- NOTE | 2023-11-07 04:02 | PC.NURSE ---
Patient has rested well this shift. Iv to left a/c infusing without difficulty. A/ox4. Stand by assist to walk. Oxygen at 2L per NC. Wheezing noted to lung santo and abdomen active x4. No bowel movement on my shift thus far. Cap refill<3 seconds. Scattered bruising noted on ble and upper extremities as well. Call light has remained in reach and safety alarm on.
[2023-11-07] MEDS: PROMETHAZINE HCL 25MG/ML 1ML VIAL 25 MG IV (05:36)
[2023-11-07] MEDS: SODIUM CHLORIDE 0.9% 25ML BAG 25 ML IV (05:36)
[2023-11-07 06:35] VITALS: PULSE 68; O2SAT 99
[2023-11-07] MEDS: BUDESONIDE 0.5MG/2ML NEB 0.5 MG IH (06:35)
[2023-11-07] MEDS: IPRATROPIUM/ALBUTEROL 3 ML NEB IH (06:35)
[2023-11-07 06:39] LABS: Basophils % 0.4 % (0.1-2.0); Eosinophils # 0.5 K/mm3 (0.0-0.4); Eosinophils % 10.6 % (0.1-12.0); Hematocrit 27.8 % (37.0-47.0); Lymphocytes # 1.4 K/mm3 (0.7-4.5); Lymphocytes % 30.2 % (10-50); Mean Corpuscular HGB Conc 32.2 g/dL (31.8-35.4); Mean Corpuscular Hemoglobin 29.9 pg (27.0-31.2); Mean Corpuscular Volume 92.9 fl (81-99); Mean Platelet Volume 8.7 fl (7.4-10.4); Monocytes # 0.3 K/mm3 (0.1-1.0); Monocytes % 6.2 % (1.7-9.3); Neutrophils # 2.4 K/mm3 (1.8-7.8); Neutrophils % 52.6 % (37.0-80.0); Platelet Count 156 K/mm3 (142-424); Red Blood Count 2.99 M/mm3 (4.20-5.40); White Blood Count 4.5 K/mm3 (4.8-10.8)
[2023-11-07 06:44] LABS: Anion Gap 1.7 mEq/L (5-15); Blood Urea Nitrogen 8 mg/dl (7-17); Calcium 7.8 mg/dl (8.4-10.2); Carbon Dioxide 38 mmol/L (22.0-30.0); Chloride 103 mmol/L (98-107); Creatinine Clearance Estimated 69 mL/min (50-200); Estimated Glomerular Filt Rate 62 ml/min (>60); GFR (African American) 75 ML/MIN (>60); Glucose 81 mg/dl (74-100); Potassium 3.7 mmoL/L (3.5-5.1); Sodium 139 mmol/L (136-145)
[2023-11-07] MEDS: METOCLOPRAMIDE HCL 10MG/2ML VIAL 5 MG IVP (07:25)
[2023-11-07] MEDS: ACETAMINOPHEN 325MG TAB 650 MG PO (07:37)
[2023-11-07 07:45] VITALS: BP 152/56; PULSE 68; RESP 18; TEMP 36.5; O2SAT 96
--- NOTE | 2023-11-07 07:57 | P.DS_ITS ---
General Admission date:: 11/04/23 Discharge date: 11/07/23 HPI HPI HPI: 73-year-old white female, long patient of mine, who with long history of COPD secondary to many years of tobacco use, who has been oxygen requirement and neb requiring over the past 3 to 4 years with chronic hypoxic respiratory failure. About 4 days ago she called me and stated that she did not think her left leg was working well but noted that it was improving after she had gotten up from her chair and moved around. She ended up coming to the ER because of weakness and some chest pain over the weekend, CTA of neck and CT scan of head were unremarkable and she was discharged home. She came to see me in the office today with increasing weakness, and failings of her left side being weak. Her left arm and leg were weak on exam given her baseline and she was found to have a right-sided facial droop. Admitted to hospital for possible completed stroke and ongoing weakness with multiple falls at home. In addition patient reports increasing abdominal nausea, pain when she stands up, feeling that there is a band around her stomach and just general malaise and feeling sick. Hospital Course Hospital Course Hospital Course: Patient was admitted to hospital. White counts were normal. Had hypocalcemia which was replaced intravenously and orally. Did well with this. Given IV magnesium to see if it would help her bowels and her chronic nausea. This was not very helpful. She was given intravenous morphine for COPD related air hunger and pain as well as intravenous Phenergan for nausea which helped intermittently. Pulmonary was consulted and felt this was stable COPD and did not recommend antibiotics or escalation of steroid therapy. MRI of brain showed no evidence of acute stroke, but subacute/chronic changes. Her left hemiparesis was obvious and persisted during admission. As I noted in her notes are little have an explanation for this other than subacute/undetectable stroke on imaging, as the appearance of her hemiplegia does not fit with a metabolic cause or spinal because of the hemiplegia. Regardless, PT and OT were consulted and they felt that she would benefit from skilled care transfer and rehab. She will be transferred to [facility] today for PT/OT. Other issues are as noted: 1. Terminal COPD. On oxygen. She is very tired, prognosis for improvement is poor. She and her family are considering hospice care but would like to see how things go with therapy at [facility]. 2. Depression with chronic anxiety. I have stopped fluoxetine given its possible GI side effects and we will continue Klonopin as previously noted for anxiety and as well as air hunger. 3. Chronic pain-continue low-dose Percocet. I have talked her about try to reduce this given its deleterious effect on the gut. 4. Chronic nausea. X-rays here have been fine, belly labs been okay. She continues to have gas but feels very nauseated and her p.o. intake is limited. We will do as needed Phenergan on a limited basis. We will do MiraLAX daily and I have stopped fluoxetine as noted. 5. Coronary disease/peripheral vascular disease [place]. Stable. No changes in plan. Patient maintains a DNI status currently. We will discuss in the next 3 to 4 days whether we need to progress to hospice care given her end-stage COPD. Exam Data for Last 24 hours Vital signs and Labs for Last 24 Hours: Temp Pulse Resp BP Pulse Ox O2 Del Method O2 Flow Rate 97.7 F 65 17 132/64 96 Room Air 2 11/07/23 04:00 11/07/23 04:00 11/07/23 04:00 11/07/23 04:00 11/07/23 04:00 11/07/23 05:44 11/07/23 04:00 FiO2 28 11/04/23 18:52 Laboratory Results - last 24 hr 11/06/23 07:19: WBC 4.7 L, RBC 3.19 L, Hgb 9.4 L, Hct 29.3 L, MCV 92.0, MCH 29.5, MCHC 32.1, RDW 15.0, Plt Count 155, MPV 8.7, Neut % (Auto) 58.3, Lymph % (Auto) 27.6, [place] % (Auto) 5.9, Eos % (Auto) 8.0, Baso % (Auto) 0.3, Neut # (Auto) 2.8, Lymph # (Auto) 1.3, [place] # (Auto) 0.3, Eos # (Auto) 0.4, Baso # (Auto) 0.0 11/07/23 05:25: WBC 4.5 L, RBC 2.99 L, Hgb 9.0 L, Hct 27.8 L, MCV 92.9, MCH 29.9, MCHC 32.2, RDW 15.0, Plt Count 156, MPV 8.7, Neut % (Auto) 52.6, Lymph % (Auto) 30.2, [place] % (Auto) 6.2, Eos % (Auto) 10.6, Baso % (Auto) 0.4, Neut # (Auto) 2.4, Lymph # (Auto) 1.4, [place] # (Auto) 0.3, Eos # (Auto) 0.5 H, Baso # (Auto) 0.0, Sodium 139, Potassium 3.7, Chloride 103, Carbon Dioxide 38 H, Anion Gap 1.7 L, BUN 8, Creatinine 0.90, Estimated Creat Clear 69, Estimated GFR 62, Est GFR ( Amer) 75, Glucose 81, Calcium 7.8 L I & O for Last 24 hours: Intake & Output 11/04/23 11/05/23 11/06/23 11/07/23 11:59 11:59 11:59 11:59 Intake Total 1260 / 1260 1330 / 1330 1805 / 1805 Output Total 0 / 0 0 / 0 0 / 0 Balance 1260 / 1260 1330 / 1330 1805 / 1805 Weight 185 lb 0.014 oz 185 lb 188 lb Constitutional Constitutional: mild distress, average body habitus and chronically ill appearing *Routine HEENT Exam Head: Present normocephalic and atraumatic Eye: Present EOMI and PERRL ENT: Present mucous membranes moist *Routine Neck Exam Neck: Present supple; Absent JVD *Routine Respiratory Exam Respiratory: Present decreased breath sounds, prolonged expiratory phase and distant breath sounds; Absent rhonchi, wheezes or crackles *Routine Cardiovascular Exam Cardiovascular: Present RRR and Normal S1 *Routine Abdominal Exam Abdominal: Present soft and normoactive bowel sounds; Absent tenderness *Routine Rectal Exam Patient deferred: visual exam *Routine Exam Patient deferred: external exam *Routine Extremities Exam Extremities: Absent cyanosis, clubbing or edema *Routine Skin Exam Skin: Present intact; Absent cyanosis, erythema or jaundice *Routine Neurological Exam Neurological: Present alert, oriented X3 and CN II-XII intact Results Data Completed and Pending Labs on day of discharge: Labs from last 24 hours 11/07/23 11/06/23 05:25 07:19 WBC 4.5 L 4.7 L RBC 2.99 L 3.19 L Hgb 9.0 L 9.4 L Hct 27.8 L 29.3 L MCV 92.9 92.0 MCH 29.9 29.5 MCHC 32.2 32.1 RDW 15.0 15.0 Plt Count 156 155 MPV 8.7 8.7 Neut % (Auto) 52.6 58.3 Lymph % (Auto) 30.2 27.6 [place] % (Auto) 6.2 5.9 Eos % (Auto) 10.6 8.0 Baso % (Auto) 0.4 0.3 Neut # (Auto) 2.4 2.8 Lymph # (Auto) 1.4 1.3 [place] # (Auto) 0.3 0.3 Eos # (Auto) 0.5 H 0.4 Baso # (Auto) 0.0 0.0 Sodium 139 Potassium 3.7 Chloride 103 Carbon Dioxide 38 H Anion Gap 1.7 L BUN 8 Creatinine 0.90 Estimated Creat Clear 69 Estimated GFR 62 Est GFR ( Amer) 75 Glucose 81 Calcium 7.8 L DS: Diagnosis Discharge Diagnosis (1) Chronic hypoxemic respiratory failure: Status: Chronic Code(s): J96.11 - Chronic respiratory failure with hypoxia (2) COPD (chronic obstructive pulmonary disease): Status: Chronic Code(s): J44.9 - Chronic obstructive pulmonary disease, unspecified Qualifiers: COPD type: unspecified COPD Qualified Code(s): J44.9 - Chronic obstructive pulmonary disease, unspecified Meds Home Medications and Allergies Home Medications Medication Instructions Recorded Confirmed Type aspirin 81 mg tablet,delayed 81 mg PO HS 01/30/19 11/04/23 History release atorvastatin 40 mg tablet 40 mg PO HS 12/17/21 11/04/23 History cholecalciferol (vitamin D3) 25 25 mcg PO DAILY Supplement 04/25/22 11/04/23 History mcg (1,000 unit) capsule metoprolol succinate 25 mg 12.5 mg PO HS 04/25/22 11/04/23 History tablet,extended release 24 hr nitroglycerin 0.4 mg sublingual 0.4 mg sublingual Q5-15M PRN Chest 06/07/22 11/04/23 History tablet Pain esomeprazole magnesium 20 mg 20 mg PO BID 07/03/22 11/04/23 History capsule,delayed release budesonide 0.5 mg/2 mL suspension 0.5 mg inhalation Q12H 04/10/23 11/04/23 History for nebulization formoterol fumarate 20 mcg/2 mL 2 ml inhalation BID 04/10/23 11/04/23 History solution for nebulization ipratropium 0.5 mg-albuterol 3 mg 3 ml inhalation QID Asthma 04/11/23 11/04/23 History (2.5 mg base)/3 mL nebulization soln tiotropium bromide 2.5 2 puff inhalation DAILY 06/25/23 11/04/23 History mcg/actuation mist for inhalation (Spiriva Respimat) clonazepam 0.5 mg tablet 0.5 mg PO BID 11/04/23 11/04/23 History clonazepam 0.5 mg tablet 1 mg PO HS 30 days #60 tabs 11/07/23 Rx oxycodone-acetaminophen 5 mg-325 1 tab PO TID PRN pain #30 tabs 11/07/23 Rx mg tablet (Endocet) New Prescriptions to Start Prescriptions: Ephraim Munoz oxycodone-acetaminophen [Endocet] Ephraim Lombardo Allergies Allergy/AdvReac Type Severity Reaction Status Date / Time No Known Allergies Allergy Verified 09/30/23 13:12 Discharge Plan Disposition Patient Disposition: [facility] Discharge Order Discharge Orders: Discharge Order (Routine); Ordered 11/07/23 Ordered By: Ephraim Lombardo Follow up Plan Prescriptions/Medication Reconciliation: New oxycodone-acetaminophen [Endocet] 5-325 mg tablet 1 tab PO TID PRN (Reason: pain) Qty: 30 0RF Continued metoprolol succinate 25 mg tablet extended release 24 hr 12.5 mg PO HS cholecalciferol (vitamin D3) 25 mcg (1,000 unit) capsule 25 mcg PO DAILY nitroglycerin 0.4 mg tablet, sublingual 0.4 mg SL Q5-15M PRN (Reason: Chest Pain) aspirin 81 MG tablet,delayed release (DR/EC) 81 mg PO HS Spiriva Respimat 2.5 mcg/actuation Mist 2 puff INHALATION DAILY atorvastatin 40 MG tablet 40 mg PO HS esomeprazole magnesium 20 mg capsule,delayed release(DR/EC) 20 mg PO BID budesonide 0.5 mg/2 mL suspension for nebulization 0.5 mg inhalation Q12H formoterol fumarate 20 mcg/2 mL solution for nebulization 2 ml inhalation BID ipratropium-albuterol 0.5 mg-3 mg(2.5 mg base)/3 mL solution for nebulization 3 ml INHALATION QID Patient Comments: USE 3 ML IN NEBULIZER 4 TIMES DAILY NEEDED FOR SHORTNESS OF BREATH OR WHEEZING clonazepam 0.5 mg tablet 0.5 mg PO BID Patient Comments: TAKE 1 TABLET IN THE MORNING. TAKE 1 TABLET IN THE AFTERNOON. TAKE 2 TABLETS AT BEDTIME. Rx Instructions: 1 tab in the morning and 1 tab in the afternoon clonazepam 0.5 mg tablet 1 mg PO HS 30 Days Qty: 60 0RF Discontinued furosemide 40 mg tablet 20 mg PO DAILY azithromycin 250 mg tablet 250 mg PO MOWEFR Patient Comments: TAKE 1 TABLET 1 TIME EACH DAY ON FRIDAY, FRIDAY AND FRIDAY fluoxetine 20 mg capsule 20 mg PO DAILY Problem Reconciliation Problems Reviewed?: Yes Patient Discharge Instructions ACTIVITY: Continue current activity DIET: continue same diet Providers Primary Care Provider: Ephraim Lombardo Admit Provider: Ephraim Lombardo Attending Provider: Ephraim Lombardo
[2023-11-07] MEDS: ENOXAPARIN 40MG/0.4ML SYRINGE 40 MG SQ (08:38)
[2023-11-07] MEDS: clonazePAM 0.5MG TABLET 0.5 MG PO (08:38)
--- NOTE | 2023-11-07 08:48 | PC.NURSE ---
Active Medications Generic Name Dose Route Start Last Admin Trade Name Freq PRN Reason Stop Dose Admin Acetaminophen 650 mg 11/04/23 12:40 11/07/23 07:37 Acetaminophen 325mg Tab PO 12/04/23 12:39 650 mg Q4HP PRN Administration Fever or Mild Pain (1-3) Al Hydrox/Mg Hydrox/Simethicone 30 ml 11/04/23 12:40 Aluminum/Magnesium/Simethicone 30ml Udc PO 12/04/23 12:39 QIDP PRN Dyspepsia Albuterol/Ipratropium 3 ml 11/04/23 18:00 11/06/23 23:36 Ipratropium/Albuterol 3 Ml [facility] 12/04/23 17:59 3 ml Q6RT TANA Administration Aspirin 81 mg 11/04/23 21:00 11/06/23 20:28 Aspirin Ec 81mg Tablet PO 12/04/23 20:59 81 mg HS TANA Administration Budesonide 0.5 mg 11/04/23 18:00 11/06/23 18:13 Budesonide 0.5mg/2ml [facility] 12/04/23 17:59 0.5 mg BIDRT TANA Administration Clonazepam 1 mg 11/04/23 21:00 11/06/23 20:28 Clonazepam 0.5mg Tablet PO 12/04/23 20:59 1 mg HS TANA Administration Clonazepam 0.5 mg 11/05/23 13:00 11/07/23 08:38 Clonazepam 0.5mg Tablet PO 12/05/23 12:59 0.5 mg 0900,1300 TANA Administration Enoxaparin Sodium 40 mg 11/05/23 09:00 11/07/23 08:38 Enoxaparin 40mg/0.4ml Syringe SQ 12/05/23 08:59 40 mg DAILY TANA Administration Sodium Chloride 1,000 mls @ 50 mls/hr 11/04/23 12:45 11/06/23 20:39 Sod Chlor 0.9% 1000ml Bag IV 12/04/23 12:44 50 mls/hr .Q20H TANA Administration Metoclopramide HCl 5 mg 11/05/23 07:40 11/07/23 07:25 Metoclopramide Hcl 10mg/2ml Vial IVP 12/05/23 07:39 5 mg Q6HP PRN Administration Nausea Metoprolol Succinate 12.5 mg 11/06/23 21:00 11/06/23 20:28 Metoprolol Succinate Xl 25mg Tablet PO 12/06/23 20:59 12.5 mg HS TANA Administration Morphine Sulfate 2 mg 11/04/23 12:40 11/06/23 20:38 Morphine 2mg/Ml Syringe IV 12/04/23 12:39 2 mg Q2HP PRN Administration Severe Pain (7-10) Pantoprazole Sodium 40 mg 11/05/23 21:00 11/06/23 20:28 Pantoprazole 40mg Tablet PO 12/05/23 20:59 40 mg HS TANA Administration Polyethylene Glycol 17 gm 11/06/23 11:15 11/06/23 11:51 Polyethylene Glycol 3350 17 Gm Packet PO 12/06/23 11:14 17 gm DAILY TANA Administration Promethazine HCl 25 mg 11/04/23 12:40 11/07/23 05:36 Promethazine Hcl 25mg/Ml 1ml Vial IV 12/04/23 12:39 25 mg Q6HP PRN Administration Nausea And Vomiting Sodium Chloride 10 ml 11/04/23 12:40 Sodium Chloride 0.9% 10ml Flush Syringe IV 12/04/23 12:39 NEEDED PRN Maintain IV Site Sodium Chloride 25 ml 11/04/23 12:40 11/07/23 05:36 Sodium Chloride 0.9% 25ml Bag IV 12/04/23 12:39 25 ml NEEDED PRN Administration for Use with IV Promethazine
--- NOTE | 2023-11-07 09:55 | PC.NURSE ---
Discharged education provided, questions encouraged and answered. Pt. v/u.
--- NOTE | 2023-11-07 10:02 | PC.NURSE ---
Pt. left unit via wheelchair, accompanied by nurse, to private vehicle where spouse was waiting.
== END 2023-11-07 10:02 | DRG 65 ==
LOC: 2ND 11-05 01:39 → OB 11-06 19:47
PROVIDERS: Admitting Provider Internal Medicine Adolescent Medicine; PCP Internal Medicine Adolescent Medicine; Visit Provider Internal Medicine Adolescent Medicine
DX: I63.9 Cerebral infarction, unspecified (principal); G81.94 Hemiplegia, unspecified affecting left nondominant side; J96.11 Chronic respiratory failure with hypoxia; I13.0 Hypertensive heart and chronic kidney disease with heart failure and stage 1 through stage 4 chronic kidney disease, or unspecified chronic kidney disease; I50.22 Chronic systolic (congestive) heart failure; J44.9 Chronic obstructive pulmonary disease, unspecified; I25.2 Old myocardial infarction; Z86.711 Personal history of pulmonary embolism; I25.10 Atherosclerotic heart disease of native coronary artery without angina pectoris; Z87.891 Personal history of nicotine dependence; N18.30 Chronic kidney disease, stage 3 unspecified; F41.9 Anxiety disorder, unspecified; F32.A Depression, unspecified; R11.0 Nausea; R10.9 Unspecified abdominal pain; E83.51 Hypocalcemia; G89.29 Other chronic pain; Z99.81 Dependence on supplemental oxygen; I73.9 Peripheral vascular disease, unspecified
CPT/HCPCS: 36415; 70551; 71046; 74021; 80048; 80053; 83605; 83735; 84484; 85025; 94640; 94760; 97110; 97116; 97162; 97165; 97530; J3475

== ENCOUNTER 2023-12-12 12:23 | Outpatient (CLI) | payer MEDICARE, OTHER, SELFPAY ==
--- NOTE | 2023-12-12 12:34 | XR_ITS ---
FINAL REPORT CLINICAL HISTORY: RT ARM PAIN FINDINGS: Right forearm Two views were obtained. There is no acute fracture or dislocation. There are mild degenerative changes. No soft tissue abnormality is identified. IMPRESSION: No acute process. Reviewed, Interpreted and Dictated by Yoshi Gutierrez III, MD Transcribed by Carrie Alexander Authenticated and [facility]
--- NOTE | 2023-12-12 12:34 | XR_ITS ---
FINAL REPORT CLINICAL HISTORY: LT ARM PAIN FINDINGS: Left forearm Two views were obtained. There is no acute fracture or dislocation. There are mild degenerative changes. No soft tissue abnormality is identified. IMPRESSION: No acute process. Reviewed, Interpreted and Dictated by Yoshi Gutierrez III, MD Transcribed by Carrie Alexander Authenticated and [facility]
== END 2023-12-12 23:59 ==
PROVIDERS: PCP Internal Medicine Adolescent Medicine; Visit Provider Internal Medicine Adolescent Medicine
DX: M79.601 Pain in right arm (principal); M79.602 Pain in left arm
CPT/HCPCS: 73090

== ENCOUNTER 2023-12-18 12:19 | Outpatient (CLI) | payer MEDICARE, OTHER, SELFPAY ==
--- NOTE | 2023-12-18 12:47 | CA_ITS ---
FINAL REPORT TECHNIQUE: Graded compression, spectral analysis and ultrasound images of the venous system of the right upper extremity were obtained. CLINICAL HISTORY: Right bicep pain FINDINGS: The jugular vein, subclavian vein, axillary vein, brachial vein, cephalic vein and basilic venous system are fully compressible and demonstrate no evidence of thrombosis. IMPRESSION: No evidence of thrombosis of the venous system of the right upper extremity. Reviewed, Interpreted and Dictated by Lopez Amaya MD Transcribed by Argelia Cho Authenticated and [facility]
== END 2023-12-18 23:59 ==
LOC: RT 12:20
PROVIDERS: PCP Internal Medicine Adolescent Medicine; Visit Provider Internal Medicine Adolescent Medicine
DX: M79.601 Pain in right arm (principal); R60.0 Localized edema
CPT/HCPCS: 93971

== ENCOUNTER 2024-01-10 07:36 | Outpatient (CLI) | payer MEDICARE, OTHER, SELFPAY ==
--- NOTE | 2024-01-10 07:40 | MR_ITS ---
FINAL REPORT CLINICAL HISTORY: BICEPS TENDON TEAR FINDINGS: Multiplanar MR imaging of the right shoulder was performed without contrast. There is motion artifact on all sequences. There is a partial-thickness, articular surface tear of the supraspinatus tendon measuring less than 50%. There is a small intrasubstance tear of the infraspinatus tendon. No full-thickness tendon tear is identified. There is mild AC joint arthrosis with spurring at the undersurface of the acromion. A small amount of fluid is present in the subacromial/subdeltoid bursa. No labral tear is identified. Long head of the biceps tendon is suboptimally visualized without tear. There is thickening of the joint capsule at the axillary recess consistent with adhesive capsulitis. A subchondral cyst is seen in the humeral head. No significant glenohumeral joint effusion is identified. The musculature is intact. There is no evidence of soft tissue mass or cyst. IMPRESSION: Partial-thickness, articular surface tear of the supraspinatus tendon measuring less than 50% with small intrasubstance tears of the infraspinatus tendon. Mild a.c. joint arthrosis with mild subacromial/subdeltoid bursitis. Thickening of the joint capsule of the axillary recess consistent with adhesive capsulitis. Reviewed, Interpreted and Dictated by Yoshi Gutierrez III, MD Transcribed by Jordyn Fried Authenticated and [facility]
== END 2024-01-10 23:59 ==
LOC: RAD 07:37
PROVIDERS: PCP Internal Medicine Adolescent Medicine; Visit Provider Internal Medicine Adolescent Medicine
DX: M25.511 Pain in right shoulder (principal); S46.211A Strain of muscle, fascia and tendon of other parts of biceps, right arm, initial encounter
CPT/HCPCS: 73221

== ENCOUNTER 2024-03-09 13:00 | Outpatient (RCR) | payer MEDICARE, OTHER, SELFPAY ==
--- NOTE | 2024-02-12 11:52 | HMH.PTOPEV ---
PT Outpatient Evaluation Rehab PT Outpatient Evaluation Start: 02/12/24 11:24 Freq: Status: Active Protocol: Document 02/12/24 11:24 [email or web address] (Rec: 02/12/24 11:52 [email or web address] [id number]) E-signed By William Mas, PT Outpatient Therapy Subjective History Subjective History Pt. is a 73 year old female who presents to [facility] in [place] for the initial evaluation this date(02/12/24) w/ c/o chronic and intermittent RUE shldr. P!, stiffness, and weakness 3 months ago. Pt. reports she was having her blood pressure read and complained that the cuff was too tight when symptoms onset. Pt. reports having improvements in symptomatic P! and ROM w/ recent injection. Recent diagnostic imaging(MRI) indicates partial-thickness, articular surface tear of supraspinatus tendon w/ small intrasubstance tears of infraspinatus tendon, thickening of joint capsule of axillary recess consistent w/ adhesive capsulitis. Pt. reports having difficulty w/ reaching overhead to store dishes and tuppaware containers, donning/doffing jackets and shirts, and sleeping on her R-side secondary to an increase in P! . Pt. reports constant supplemental O2 of 3L/min at rest, most of the time 2. Pt . RTMD(Dr. Ramos) 03/31/24. Current medications include Albuterol, Aspirin, Ibuprofen, Esomeprazole, Clonazepam, Metoprolol, Atorvastatin, Prednisone, Azithromycin, and Budesonide. PMH includes Cholecystectomy, Cataract Sx., Hysterectomy, Pneumothorax, HTN, Hyperlipidemia, Cardiac Stents x 7, COPD, and Emphysema. New diagnosis of cancer in past 12 No months? Chief Complaint Pain,Stiff,Gives out/Unstable, Weakness Symptom Type Ache,Sharp,Dull,Stabbing Symptoms Relieved By Rest/Positioning,Ice,OTC Meds, Prescription Meds Symptoms Aggravated By Physical Activity,Twisting, Lifting Prior Functional Limitations None Current Functional Limitations Reaching,Lifting,Housework, Dressing,Sleeping Symptom Description Intermittent,Activity Dependent Level of pain today (0-10) 0 Pain scale - at its best (0-10) 0 Pain scale - at its worst (0-10) 6 Shoulder/Elbow Eval Shoulder Objective Measurements Palpation Tenderness tenderness shoulder exam standard right tenderness over the SA bursa shoulder right exam standard Shoulder Palpation Findings Tenderness Shoulder Palpation Overall Comment grade 4 +TTP above, infraspinatus mm., greater tubercle Posture Shoulder Posture Sitting Position (R) Rounded,(R) Forward Shoulder Posture Standing Position (R) Rounded,(R) Forward Scapula Posture Sitting Position (R) Protracted Scapular Posture Standing Position (R) Protracted Flexibilty Deficits Latissmus Dorsi Muscle Length (R) Severe Tightness Pectoralis Minor Muscle Length (R) Severe Tightness Pectoralis Major Muscle Length (R) Severe Tightness Shoulder External Rotators Muscle Length (R) Severe Tightness Shoulder Internal Rotators Muscle Length (R) Severe Tightness Supraspinatus Muscle Length (R) Severe Tightness Teres Major Muscle Length (R) Severe Tightness Upper Trapezius Muscle Length (R) Severe Tightness Levaetor Scapulae Muscle Length (R) Severe Tightness Shoulder ROM Right Shoulder ROM Limitations Soft Tissue Tightness,Muscle Weakness,Muscle Tone,Pain Shoulder Abduction Active Range of 93 Motion (degrees) Shoulder Abduction Passive Range of 101 Motion (degrees) Shoulder Flexion Active Range of Motion 87 (degrees) Query Text: Shoulder Flexion Passive Range of Motion 97 (degrees) Shoulder External Rotation Active Range 41 of Motion (degrees) Shoulder External Rotation Passive Range 44 of Motion (degrees) Shoulder Internal Rotation Active Range 44 of Motion (degrees) Shoulder Internal Rotation Passive Range 49 of Motion (degrees) Shoulder Extension Active Range of 80 Motion (degrees) pain with active ROM shoulder exam right standard pain with passive ROM shoulder exam right standard decreased ROM shoulder exam standard right Shoulder MMT Shoulder Abduction Strength Grade 3+ Fair+ Shoulder Extension Strength Grade 4- Good- Shoulder Flexion Strength Grade 3+ Fair+ Shoulder External Rotation Strength 3+ Fair+ Grade Shoulder Internal Rotation Strength 4- Good- Grade Shoulder Strength Patient Testing Sitting Position Shoulder Muscle Tone Shoulder Flexor Muscle Tone Description Severe Hypertonicity Shoulder Extensors Muscle Tone Severe Hypertonicity Description Shoulder Lateral Rotator Muscle Tone Severe Hypertonicity Description Shoulder Special Tests impingement sign present shoulder exam right standard Shoulder Drop Arm Test Positive Right Shoulder Cross-Over Impingement Test Positive Right Shoulder Empty Can (Supraspinatus) Test Positive Right Shoulder Haines-Campbell Impingement Positive Right Test Shoulder Speed's Sign Test Negative Right Elbow Objective Measurements Accessory Movements Right Shoulder Girdle Accessory Movements that Glenohumeral [place], [place] Symptoms Glenohumeral [place] Outpatient Therapy Assessment Impairments Problems/Impairmments Palpation Tenderness,Impaired Range of Motion,Impaired Strength,Impaired Lifting, Impaired Dressing,Impaired Shower/Bathing,Impaired Household Care,Subjective C/O Pain,Impaired Self Care/Self Management Prognosis Rehab Potential Good Comment w/ HEP compliancy Clinical Impression Consistent with Diagnosis Yes Consistent with R shldr. 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 A/PROM >85% norms grossly Increase Strength Yes: 4+ to 5/ RUE shldr. MMT scores grossly w/o difficulty Restore Ability to Lift Objects Overhead Yes: Pt. will be able to return to storing away/ grabbing tuppaware/etc. from she Improve Ability to Dress Self Yes Improve Ability to Shower/Bathe Self Yes Improve Quick Dash Score Yes Decrease Subjective C/O Pain Yes: worse:-12/06 Improve Self Care/Self Management Yes Patient to be Ind w/ Advanced HEP Yes Outpatient Therapy Plan of Care Treatment Plan May Include Therapeutic Exercise Including Home Yes Exercise Program Manual Therapy Techniques Yes Neuromuscular Re-education Yes Therapeutic Activities to Return to Yes Previous Functional/Work Level ADL/Self Care Education Yes Dry Needling Yes Thermal Modalities Yes Electrical Stimulation Yes Ultrasound/Phonophoresis Yes Iontophoresis Yes Vasopneumatic Compression Pump Yes Massage Yes Eval/Re-Eval Yes Frequency Times per week 2 Duration Number of Weeks 4-6 Addendums This patient is a candidate for social No or vocational rehab? Patient/Guardian verbally acknowledges Yes understanding of treatment program and consents to further treatment? Patient/Guardian verbally acknowledges Yes understanding of diagnosis, prognosis and goals for treatment? Eval Complexity PT Charges 35491 - Low Complexity PHYSICIAN CERTIFICATION: I certify the specified therapy services for Shayy L Black are required, authorized, and reviewed every 30 days.
== END 2024-04-15 17:00 | disposition home or self-care (01) ==
LOC: PT 13:00
PROVIDERS: Visit Provider Internal Medicine Adolescent Medicine
DX: M25.511 Pain in right shoulder (principal); M75.01 Adhesive capsulitis of right shoulder
CPT/HCPCS: 97010; 97014; 97110; 97140; 97163; 97530; G0283

== ENCOUNTER 2024-03-09 16:31 | Emergency (ER) | payer MEDICARE, OTHER, SELFPAY ==
[2024-03-09 16:31] VITALS: BP 122/65; PULSE 78; RESP 20; TEMP 36.4; O2SAT 96; BMI 23.5
--- NOTE | 2024-03-09 16:32 | HMH.EDGENADL ---
Discharge Plan Disposition Patient Disposition: Home, Self-Care Condition: Good Prescriptions Prescriptions: No Action metoprolol succinate 25 mg tablet extended release 24 hr 12.5 mg PO HS promethazine-DM 6.25-15 mg/5 mL syrup 5 ml PO Q4-6H Patient Comments: TAKE 5 ML (1 TEASPOONFUL) EVERY 6 HOURS hydrocodone-acetaminophen 5-500 mg tablet 1 tab PO Q4-6H PRN isosorbide mononitrate 30 mg tablet extended release 24 hr 30 mg PO DAILY Qty: 30 2RF cholecalciferol (vitamin D3) 25 mcg (1,000 unit) capsule 25 mcg PO DAILY nitroglycerin 0.4 mg tablet, sublingual 0.4 mg SL Q5-15M PRN (Reason: Chest Pain) formoterol fumarate [Perforomist] 20 mcg/2 mL solution for nebulization 2 ml inhalation BID 90 Days Qty: 180 3RF aspirin 81 MG tablet,delayed release (DR/EC) 81 mg PO HS Spiriva Respimat 2.5 mcg/actuation Mist 2 puff INHALATION DAILY atorvastatin 40 MG tablet 40 mg PO HS esomeprazole magnesium 20 mg capsule,delayed release(DR/EC) 20 mg PO BID budesonide 0.5 mg/2 mL suspension for nebulization 0.5 mg inhalation Q12H formoterol fumarate 20 mcg/2 mL solution for nebulization 2 ml inhalation BID ipratropium-albuterol 0.5 mg-3 mg(2.5 mg base)/3 mL solution for nebulization 3 ml INHALATION QID Patient Comments: USE 3 ML IN NEBULIZER 4 TIMES DAILY NEEDED FOR SHORTNESS OF BREATH OR WHEEZING clonazepam 0.5 mg tablet 0.5 mg PO BID Patient Comments: TAKE 1 TABLET IN THE MORNING. TAKE 1 TABLET IN THE AFTERNOON. TAKE 2 TABLETS AT BEDTIME. Rx Instructions: 1 tab in the morning and 1 tab in the afternoon clonazepam 0.5 mg tablet 1 mg PO HS 30 Days Qty: 60 0RF Activity Restrictions/Add. Instructions Additional Instructions/Restrictions: Follow-up with your PCP as needed or return to the emergency department for any worsening signs or symptoms. Clinical Impressions Clinical Impression: Acute abdominal pain Instructions Patient Instructions: DI for Acute Abdominal Pain Discharge ED Provider: Young Philippe General Adult HPI <LUIS FERNANDO Santana - Last Filed: 03/09/24 19:25> General Chief complaint: Abdominal Pain Stated complaint: Abd pain Time Seen by Provider: 03/09/24 16:35 History of Present Illness HPI narrative: Patient presents for evaluation of acute abdominal pain. Patient reports that she had sudden onset of acute epigastric abdominal pain while driving home. She was nauseated but no vomiting or diarrhea. She denies shortness of breath fever chills hemoptysis hematochezia melena nausea vomit diarrhea Related Data Home Medications Medication Instructions Recorded Confirmed aspirin 81 mg tablet,delayed 81 mg PO HS 01/30/19 01/28/24 release atorvastatin 40 mg tablet 40 mg PO HS 12/17/21 01/28/24 cholecalciferol (vitamin D3) 25 25 mcg PO DAILY Supplement 04/25/22 01/28/24 mcg (1,000 unit) capsule metoprolol succinate 25 mg 12.5 mg PO HS 04/25/22 01/28/24 tablet,extended release 24 hr nitroglycerin 0.4 mg sublingual 0.4 mg sublingual Q5-15M PRN Chest 06/07/22 01/28/24 tablet Pain esomeprazole magnesium 20 mg 20 mg PO BID 07/03/22 01/28/24 capsule,delayed release budesonide 0.5 mg/2 mL suspension 0.5 mg inhalation Q12H 04/10/23 01/28/24 for nebulization formoterol fumarate 20 mcg/2 mL 2 ml inhalation BID 04/10/23 01/28/24 solution for nebulization ipratropium 0.5 mg-albuterol 3 mg 3 ml inhalation QID Asthma 04/11/23 01/28/24 (2.5 mg base)/3 mL nebulization soln tiotropium bromide 2.5 2 puff inhalation DAILY 06/25/23 01/28/24 mcg/actuation mist for inhalation (Spiriva Respimat) clonazepam 0.5 mg tablet 0.5 mg PO BID 11/04/23 01/28/24 hydrocodone 5 mg-acetaminophen 500 1 tab PO Q4-6H PRN 01/05/24 01/28/24 mg tablet promethazine-DM 6.25 mg-15 mg/5 mL 5 ml PO Q4-6H 01/05/24 01/28/24 oral syrup Previous Rx's Medication Instructions Recorded clonazepam 0.5 mg tablet 1 mg (2 x 0.5 mg) PO HS 30 days 11/07/23 #60 tabs isosorbide mononitrate 30 mg 30 mg PO DAILY #30 tabs 01/05/24 tablet,extended release 24 hr formoterol fumarate 20 mcg/2 mL 2 ml inhalation BID 90 days #180 mL 02/09/24 solution for nebulization (Perforomist) Allergies Allergy/AdvReac Type Severity Reaction Status Date / Time No Known Allergies Allergy Verified 01/28/24 10:49 PFS <LUIS FERNANDO Santana - Last Filed: 03/09/24 19:25> [facility] Disclaimer: The information contained in this section may have been updated after the patient was seen, as this information can be updated by other users. Medical History Dysphagia Stopped smoking with greater than 30 pack year history Multiple pulmonary nodules Eosinophilia Chronic hypoxemic respiratory failure Dyspnea on exertion Congestive heart failure Acute exacerbation of CHF (congestive heart failure) Coronary atherosclerosis of [place] coronary artery Acute systolic CHF (congestive heart failure) NSTEMI (non-ST elevated myocardial infarction) CKD (chronic kidney disease) Tobacco dependence Acute exacerbation of chronic obstructive airways disease Atypical chest pain Bradycardia Carotid artery stenosis HLD (hyperlipidemia) COPD (chronic obstructive pulmonary disease) Surgical History History of colonoscopy History of esophagogastroduodenoscopy (EGD) History of lumpectomy No significant past surgical history Family History Other Cancer Family history of GERD Family history of arthritis Family history of hyperlipidemia Family history of hypertension Heart attack Social History Smoking Status: Former smoker tobacco type: cigarettes packs per day: 1 second hand exposure: No alcohol intake: never substance use type: denies use 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al status: retired Travel in the last 8 weeks: None household members: spouse housing: house marital status: 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al exposures/hazards: No caffeine: Yes <LUIS FERNANDO Santana - Last Filed: 03/09/24 19:25> ROS Obtained: Yes Systems reviewed as appropriate & no additional complaints except as documented Physical Exam <LUIS FERNANDO Santana - Last Filed: 03/09/24 19:25> General General appearance: alert and in no apparent distress Head Head exam: atraumatic and normal inspection Eye Eye exam: Present normal appearance, PERRL and EOMI ENT ENT exam: Present normal exam, normal oropharynx and mucous membranes moist Neck Neck exam: Present normal inspection, full ROM and trachea midline; Absent lymphadenopathy Chest Chest inspection: Present normal inspection and symmetric chest wall rise Respiratory Respiratory exam: Present normal lung sounds bilaterally; Absent accessory muscle use Cardiovascular Cardiovascular exam: Present regular rate, normal rhythm, normal heart sounds, +S1 and +S2 Abdominal Exam Abdominal exam: Present soft and normal bowel sounds; Absent tenderness, guarding or rebound Extremities Exam Extremities exam: Present normal inspection and full ROM Back Exam Back exam: Present normal inspection and full ROM Neurological Exam Neurological exam: Present alert, oriented X3 and CN II-XII intact Psychiatric Psychiatric exam: Present normal affect and normal mood Skin Skin exam: Present warm, dry and normal color Lymphatic Lymphatic Findings: no adenopathy Medical Decision Making <LUIS FERNANDO Santana - Last Filed: 03/09/24 19:25> Medical Records Medical records reviewed: Yes I reviewed the patient's medical records. [place] Inquiry Pt receiving controlled substance: No Vital Signs: 03/09/24 16:31 03/09/24 17:30 03/09/24 18:00 Temperature 97.5 F L Temperature Source Oral Pulse Rate 55 L 54 L Pulse Rate [Right Radial] 78 Respiratory Rate 20 20 Blood Pressure 118/45 L 114/46 L Blood Pressure [Right Arm] 122/65 Blood Pressure Mean 65 Blood Pressure Mean [Right Arm] 84 02 Sat by Pulse Oximetry 96 100 96 Oxygen Delivery Method Nasal Cannula Oxygen Flow Rate (LPM) 2 03/09/24 18:30 03/09/24 19:36 Temperature 98.0 F Temperature Source Pulse Rate 53 L 57 L Pulse Rate [Right Radial] Respiratory Rate 15 20 Blood Pressure 106/85 L 120/70 Blood Pressure [Right Arm] Blood Pressure Mean Blood Pressure Mean [Right Arm] 02 Sat by Pulse Oximetry 97 Oxygen Delivery Method Room Air Room Air Oxygen Flow Rate (LPM) Lab Data Lab results reviewed: Yes I reviewed the patient's lab results. Lab Results 03/09/24 16:50: WBC 9.7, RBC 3.61 L, Hgb 10.5 L, Hct 34.2 L, MCV 94.6, MCH 29.1, MCHC 30.8 L, RDW 14.4, Plt Count 289, MPV 8.2, Neut % (Auto) 69.8, Lymph % (Auto) 21.6, Antelope % (Auto) 5.2, Eos % (Auto) 2.5, Baso % (Auto) 0.9, Neut # (Auto) 6.8, Lymph # (Auto) 2.1, Antelope # (Auto) 0.5, Eos # (Auto) 0.2, Baso # (Auto) 0.1, PT 10.9, INR 1.01, Sodium 138, Potassium 3.8, Chloride 102, Carbon Dioxide 36 H, Anion Gap 3.8 L, BUN 21 H, Creatinine 1.00, Estimated Creat Clear 61, Estimated GFR 55 L, Est GFR ( Amer) 66, Glucose 90, Lactate 0.9, Calcium 8.4, Magnesium 1.5 L, Total Bilirubin 0.4, AST 60 H, ALT 33, Alkaline Phosphatase 109, Troponin I < 0.01, Total Protein 5.6 L, Albumin 3.2 L, Globulin 2.4, Albumin/Globulin Ratio 1.3, Lipase 59 03/09/24 18:25: Troponin I < 0.01 03/09/24 16:50 03/09/24 16:50 Orders (Tests/Meds): ED MEDICATIONS Discontinued Medications Generic Name Dose Route Start Last Admin Trade Name Freq PRN Reason Stop Dose Admin Acetaminophen 1,000 mg 03/09/24 16:33 03/09/24 17:16 Acetaminophen 1,000mg/100ml Vial IV 03/09/24 16:34 1,000 mg ONCE ONE Administration Lactated Ringer's 1,000 mls @ 999 mls/hr 03/09/24 16:33 03/09/24 17:17 Lactated Ringer's 1000 Ml Bag IV 03/09/24 17:33 999 mls/hr .Q1H1M ONE Administration Magnesium Sulfate 2 gm in 50 mls @ 50 mls/hr 03/09/24 18:14 03/09/24 18:20 Magnesium Sulfate 2gm/50ml Premix IV 03/09/24 19:13 50 mls/hr ONCE ONE Administration Ketorolac Tromethamine 15 mg 03/09/24 16:33 03/09/24 17:17 Ketorolac 30mg/Ml Vial IV 03/09/24 16:34 15 mg ONCE ONE Administration ORDERS Category Date Time Status CBC w/Auto Diff [Complete Blood Count Auto Diff] Stat Lab 03/09/24 16:50 Completed CMP [Comprehensive Metabolic Panel] Stat Lab 03/09/24 16:50 Completed INR [Prothrombin Time INR] Stat Lab 03/09/24 16:50 Completed Lactic Acid Stat Lab 03/09/24 16:50 Completed Lipase Stat Lab 03/09/24 16:50 Completed Magnesium Stat Lab 03/09/24 16:50 Completed Trop I [Troponin I] Stat Lab 03/09/24 16:50 Completed Troponin I Q3H Lab 03/09/24 18:25 Completed Medical Decision Narrative: In summary patient is a 73-year-old female who presents to the emergency department for evaluation of abdominal pain. Patient is hemodynamically stable upon arrival, afebrile. Physical exam is unremarkable and patient has no abdominal pain at the time my exam bowel sounds are normal. Differential diagnosis includes GERD, esophageal spasm, ACS, ulcer, acute cholecystitis/cholelithiasis etc. Initial workup will be conducted with hematologic labs twelve-lead EKG. Initial interventions include Toradol Tylenol GI cocktail if pain reoccurs and continuous cardiac monitoring and continuous pulse oximetry. Initial workup reviewed by me shows that her hematologic labs are nonactionable including an undetectable troponin. Upon repeat evaluation patient remains symptom-free. Given this we have ruled out any serious or life-threatening condition and patient is appropriate for discharge home with follow-up with her PCP for further evaluation of her abdominal pain if it recurs. Jose Martin: Interpretation of EKG sinus bradycardia 52 beats a minute no ST or T wave changes concerning for acute ischemia. IL, QRS, QT intervals within normal limits. [place] normal <Young Philippe MD - Last Filed: 03/09/24 20:17> Vital Signs: 03/09/24 16:31 03/09/24 17:30 03/09/24 18:00 Temperature 97.5 F L Temperature Source Oral Pulse Rate 55 L 54 L Pulse Rate [Right Radial] 78 Respiratory Rate 20 20 Blood Pressure 118/45 L 114/46 L Blood Pressure [Right Arm] 122/65 Blood Pressure Mean 65 Blood Pressure Mean [Right Arm] 84 02 Sat by Pulse Oximetry 96 100 96 Oxygen Delivery Method Nasal Cannula Oxygen Flow Rate (LPM) 2 03/09/24 18:30 03/09/24 19:36 Temperature 98.0 F Temperature Source Pulse Rate 53 L 57 L Pulse Rate [Right Radial] Respiratory Rate 15 20 Blood Pressure 106/85 L 120/70 Blood Pressure [Right Arm] Blood Pressure Mean Blood Pressure Mean [Right Arm] 02 Sat by Pulse Oximetry 97 Oxygen Delivery Method Room Air Room Air Oxygen Flow Rate (LPM) Lab Data Lab Results 03/09/24 16:50: WBC 9.7, RBC 3.61 L, Hgb 10.5 L, Hct 34.2 L, MCV 94.6, MCH 29.1, MCHC 30.8 L, RDW 14.4, Plt Count 289, MPV 8.2, Neut % (Auto) 69.8, Lymph % (Auto) 21.6, [place]elope % (Auto) 5.2, Eos % (Auto) 2.5, Baso % (Auto) 0.9, Neut # (Auto) 6.8, Lymph # (Auto) 2.1, [place]elope # (Auto) 0.5, Eos # (Auto) 0.2, Baso # (Auto) 0.1, PT 10.9, INR 1.01, Sodium 138, Potassium 3.8, Chloride 102, Carbon Dioxide 36 H, Anion Gap 3.8 L, BUN 21 H, Creatinine 1.00, Estimated Creat Clear 61, Estimated GFR 55 L, Est GFR ( Amer) 66, Glucose 90, Lactate 0.9, Calcium 8.4, Magnesium 1.5 L, Total Bilirubin 0.4, AST 60 H, ALT 33, Alkaline Phosphatase 109, Troponin I < 0.01, Total Protein 5.6 L, Albumin 3.2 L, Globulin 2.4, Albumin/Globulin Ratio 1.3, Lipase 59 03/09/24 18:25: Troponin I < 0.01 Orders (Tests/Meds): ED MEDICATIONS Discontinued Medications Generic Name Dose Route Start Last Admin Trade Name Freq PRN Reason Stop Dose Admin Acetaminophen 1,000 mg 03/09/24 16:33 03/09/24 17:16 Acetaminophen 1,000mg/100ml Vial IV 03/09/24 16:34 1,000 mg ONCE ONE Administration Lactated Ringer's 1,000 mls @ 999 mls/hr 03/09/24 16:33 03/09/24 17:17 Lactated Ringer's 1000 Ml Bag IV 03/09/24 17:33 999 mls/hr .Q1H1M ONE Administration Magnesium Sulfate 2 gm in 50 mls @ 50 mls/hr 03/09/24 18:14 03/09/24 18:20 Magnesium Sulfate 2gm/50ml Premix IV 03/09/24 19:13 50 mls/hr ONCE ONE Administration Ketorolac Tromethamine 15 mg 03/09/24 16:33 03/09/24 17:17 Ketorolac 30mg/Ml Vial IV 03/09/24 16:34 15 mg ONCE ONE Administration ORDERS Category Date Time Status CBC w/Auto Diff [Complete Blood Count Auto Diff] Stat Lab 03/09/24 16:50 Completed CMP [Comprehensive Metabolic Panel] Stat Lab 03/09/24 16:50 Completed INR [Prothrombin Time INR] Stat Lab 03/09/24 16:50 Completed Lactic Acid Stat Lab 03/09/24 16:50 Completed Lipase Stat Lab 03/09/24 16:50 Completed Magnesium Stat Lab 03/09/24 16:50 Completed Trop I [Troponin I] Stat Lab 03/09/24 16:50 Completed Troponin I Q3H Lab 03/09/24 18:25 Completed Medical Decision Narrative: In summary patient is a 73-year-old female who presents to the emergency department for evaluation of abdominal pain. Patient is hemodynamically stable upon arrival, afebrile. Physical exam is unremarkable and patient has no abdominal pain at the time my exam bowel sounds are normal. Differential diagnosis includes GERD, esophageal spasm, ACS, ulcer, acute cholecystitis/cholelithiasis etc. Initial workup will be conducted with hematologic labs twelve-lead EKG. Initial interventions include Toradol Tylenol GI cocktail if pain reoccurs and continuous cardiac monitoring and continuous pulse oximetry. Initial workup reviewed by me shows that her hematologic labs are nonactionable including an undetectable troponin. Upon repeat evaluation patient remains symptom-free. Given this we have ruled out any serious or life-threatening condition and patient is appropriate for discharge home with follow-up with her PCP for further evaluation of her abdominal pain if it recurs. Jose Martin: Interpretation of EKG sinus bradycardia 52 beats a minute no ST or T wave changes concerning for acute ischemia. IL, QRS, QT intervals within normal limits. [place] normal. I was consulted by the LINDA, and we discussed the complexity of the problems being addressed. I approved the treatment and management plan for this patient?s care in the Emergency Department, thus performing a substantive portion of the medical decision making. Young Philippe MD Critical Care <LUIS FERNANDO Santana - Last Filed: 03/09/24 19:25> Critical Care Time Critical Care Time: No
[2024-03-09 17:04] LABS: Basophils # 0.1 K/mm3 (0-0.2); Basophils % 0.9 % (0.1-2.0); Eosinophils # 0.2 K/mm3 (0.0-0.4); Eosinophils % 2.5 % (0.1-12.0); Hematocrit 34.2 % (37.0-47.0); Hemoglobin 10.5 g/dL (12.2-16.2); Lymphocytes # 2.1 K/mm3 (0.7-4.5); Lymphocytes % 21.6 % (10-50); Mean Corpuscular HGB Conc 30.8 g/dL (31.8-35.4); Mean Corpuscular Hemoglobin 29.1 pg (27.0-31.2); Mean Corpuscular Volume 94.6 fl (81-99); Mean Platelet Volume 8.2 fl (7.4-10.4); Monocytes # 0.5 K/mm3 (0.1-1.0); Monocytes % 5.2 % (1.7-9.3); Neutrophils # 6.8 K/mm3 (1.8-7.8); Neutrophils % 69.8 % (37.0-80.0); Platelet Count 289 K/mm3 (142-424); Red Blood Count 3.61 M/mm3 (4.20-5.40); Red Cell Distribution Width 14.4 % (11.5-17.5); White Blood Count 9.7 K/mm3 (4.8-10.8)
[2024-03-09 17:13] LABS: Chloride 102 mmol/L (98-107); Potassium 3.8 mmoL/L (3.5-5.1); Sodium 138 mmol/L (136-145)
[2024-03-09 17:14] LABS: Lipase 59 U/L (23-300)
[2024-03-09 17:15] LABS: Magnesium 1.5 mg/dl (1.6-2.3)
[2024-03-09 17:16] LABS: Alanine Aminotransferase 33 U/L (12-78); Albumin Level 3.2 g/dl (3.5-5.0); Albumin/Globulin Ratio 1.3 (1.1-1.8); Alkaline Phosphatase 109 U/L (38-126); Anion Gap 3.8 mEq/L (5-15); Aspartate Amino Transferase 60 U/L (14-36); Bilirubin,Total 0.4 mg/dl (0.2-1.3); Blood Urea Nitrogen 21 mg/dl (7-17); Calcium 8.4 mg/dl (8.4-10.2); Carbon Dioxide 36 mmol/L (22.0-30.0); Creatinine Clearance Estimated 61 mL/min (50-200); Estimated Glomerular Filt Rate 55 ml/min (>60); GFR (African American) 66 ML/MIN (>60); Globulin 2.4 g/dL (1.3-3.2); Glucose 90 mg/dl (74-100); INR 1.01 (0.9-1.1); Prothrombin Time 10.9 seconds (10.1-12.5); Total Protein,Serum 5.6 g/dl (6.3-8.2)
[2024-03-09] MEDS: ACETAMINOPHEN 1,000MG/100ML VIAL 1000 MG IV (17:16)
[2024-03-09] MEDS: LACTATED RINGERS 1000ML 1,000 ML 999 ML IV (17:17)
[2024-03-09] MEDS: KETOROLAC 30MG/ML VIAL 15 MG IV (17:17)
[2024-03-09 17:28] LABS: Troponin I < 0.01 ng/ml (0.00-0.034)
[2024-03-09 17:30] VITALS: BP 118/45; PULSE 55; O2SAT 100
--- NOTE | 2024-03-09 17:30 | PC.NURSE ---
Pt resting in bed. No needs voiced at this time. Call [facility] within reach.
--- NOTE | 2024-03-09 17:38 | ECG_ITS ---
APPROVED REPORT Exam: Resting ECG HR:52 bpm ECG Measurements Heart Rate [address] 156 P 50 QRSd 86 QRS 80 QT 456 T 75 QTc 437 Conclusion SINUS BRADYCARDIA Electronically signed by : SUNIL JARQUIN, 03/09/2024 22:45:52
[2024-03-09 17:47] LABS: Lactic Acid 0.9 mmol/L (0.7-2.1)
[2024-03-09 18:00] VITALS: BP 114/46; PULSE 54; RESP 20; O2SAT 96
[2024-03-09] MEDS: MAGNESIUM SULFATE IN WATER 2 GM/50 ML PIGGYBACK IV (18:20)
[2024-03-09 18:30] VITALS: BP 106/85; PULSE 53; RESP 15; O2SAT 97
[2024-03-09 19:18] LABS: Troponin I < 0.01 ng/ml (0.00-0.034)
[2024-03-09 19:36] VITALS: BP 120/70; PULSE 57; RESP 20; TEMP 36.7; O2SAT 98
== END 2024-03-09 19:38 | disposition home or self-care (01) ==
PROVIDERS: Physician Assistant; Emergency Provider Emergency Medicine; PCP Internal Medicine Adolescent Medicine
DX: R10.13 Epigastric pain (principal); R00.1 Bradycardia, unspecified; R11.0 Nausea; J44.9 Chronic obstructive pulmonary disease, unspecified; I11.0 Hypertensive heart disease with heart failure; I50.21 Acute systolic (congestive) heart failure; N18.9 Chronic kidney disease, unspecified; I65.29 Occlusion and stenosis of unspecified carotid artery; E78.5 Hyperlipidemia, unspecified; Z87.891 Personal history of nicotine dependence
CPT/HCPCS: 80053; 83605; 83690; 83735; 84484; 85025; 85610; 93005; 96361; 96365; 96375; 99284; J0131; J3475

== ENCOUNTER 2024-05-18 12:06 | Outpatient (CLI) | payer MEDICARE, SELFPAY ==
[2024-05-18 12:15] VITALS: BMI 23.6
[2024-05-18] MEDS: 0.9 % SODIUM CHLORIDE 1000ML 1,000 ML 999 ML IV (12:25)
[2024-05-18] MEDS: METHYLPREDNISOLONE SOD SUCC 125MG VIAL 125 MG IV (12:25)
[2024-05-18] MEDS: CEFTRIAXONE 1 GM 1 GM in 0.9 % SODIUM CHLORIDE 50 ML IV (12:26)
[2024-05-18 12:30] VITALS: BP 131/65; PULSE 54; RESP 16; TEMP 36.6; O2SAT 100
[2024-05-18 12:37] LABS: Basophils # 0.1 K/mm3 (0-0.2); Basophils % 0.7 % (0.1-2.0); Eosinophils # 0.3 K/mm3 (0.0-0.4); Eosinophils % 1.7 % (0.1-12.0); Hematocrit 37.1 % (37.0-47.0); Lymphocytes # 4.3 K/mm3 (0.7-4.5); Lymphocytes % 29.3 % (10-50); Mean Corpuscular HGB Conc 32.3 g/dL (31.8-35.4); Mean Platelet Volume 8.5 fl (7.4-10.4); Monocytes # 0.7 K/mm3 (0.1-1.0); Monocytes % 4.7 % (1.7-9.3); Neutrophils # 9.4 K/mm3 (1.8-7.8); Neutrophils % 63.6 % (37.0-80.0); Platelet Count 261 K/mm3 (142-424); Red Blood Count 3.99 M/mm3 (4.20-5.40); Red Cell Distribution Width 14.6 % (11.5-17.5); White Blood Count 14.8 K/mm3 (4.8-10.8)
[2024-05-18 12:45] LABS: Chloride 105 mmol/L (98-107); Sodium 142 mmol/L (136-145)
[2024-05-18 12:46] LABS: Potassium 3.6 mmoL/L (3.5-5.1)
[2024-05-18 12:48] LABS: Blood Urea Nitrogen 25 mg/dl (7-17); Creatinine Clearance Estimated 57 mL/min (50-200); Estimated Glomerular Filt Rate 49 ml/min (>60); GFR (African American) 59 ML/MIN (>60)
[2024-05-18 12:49] LABS: Anion Gap 7.6 mEq/L (5-15); Calcium 8.8 mg/dl (8.4-10.2); Carbon Dioxide 33 mmol/L (22.0-30.0); Glucose 83 mg/dl (74-100)
[2024-05-18 14:20] VITALS: BP 136/59; PULSE 56; RESP 20; TEMP 36.4; O2SAT 99
== END 2024-05-18 14:25 | disposition home or self-care (01) ==
PROVIDERS: PCP Internal Medicine Adolescent Medicine; Visit Provider Internal Medicine Adolescent Medicine
DX: J44.1 Chronic obstructive pulmonary disease with (acute) exacerbation (principal); Z79.2 Long term (current) use of antibiotics; Z79.52 Long term (current) use of systemic steroids; Z87.891 Personal history of nicotine dependence
CPT/HCPCS: 96365; 36415; 80048; 85025; 96360; 96367; 96375; J0696; J2919

== ENCOUNTER 2024-06-07 16:19 | Outpatient (CLI) | payer MEDICARE, SELFPAY ==
[2024-06-16 07:12] LABS: Atopobium vaginae Low - 0 Score (.); BVAB2 Low - 0 Score (.); Candida albicans NAA Negative (Negative); Candida glabrata Negative (Negative); Chlamydia Trachomatis NAA Negative (Negative); HSV 1 NAA Negative (Negative); HSV 2 NAA Negative (Negative); Megasphaera 1 Low - 0 Score (.); Neisseria gonorrhoeae NAA Negative (Negative); Trich vag NAA Negative (Negative)
== END 2024-06-07 23:59 | disposition home or self-care (01) ==
LOC: LAB.DROPOF 16:21
PROVIDERS: PCP Urology; Visit Provider Urology
DX: N95.2 Postmenopausal atrophic vaginitis
CPT/HCPCS: 87491; 87529; 87591; 87661; 87798; 87801

== ENCOUNTER 2024-06-10 13:42 | Outpatient (CLI) | payer MEDICARE, SELFPAY ==
--- NOTE | 2024-06-10 13:43 | US_ITS ---
FINAL REPORT TECHNIQUE: Ultrasound images of the kidneys and bladder were obtained. CLINICAL HISTORY: UTI FINDINGS: The right kidney measures 9.5 cm in length. It is normal in echogenicity. There is no hydronephrosis. The left kidney measures 8.8 cm in length. It is normal in echogenicity. There is no hydronephrosis. There is a focal bulge of the lateral kidney contour at its midportion, mass is not excluded. The spleen is unremarkable. IMPRESSION: Possible left renal mass. Recommend renal mass protocol CT. Reviewed, Interpreted and Dictated by Yoshi Gutierrez III, MD Transcribed by Carrie Alexander Authenticated and [facility]
== END 2024-06-10 23:59 | disposition home or self-care (01) ==
LOC: RAD 13:43
PROVIDERS: PCP Urology; Visit Provider Urology
DX: N39.0 Urinary tract infection, site not specified (principal)
CPT/HCPCS: 76770

== ENCOUNTER 2024-06-17 11:30 | Outpatient (CLI) | payer MEDICARE, SELFPAY ==
--- NOTE | 2024-06-17 | CA_ITS ---
APPROVED REPORT Exam: Pharmacologic Technologist: Grace Land, Ht: 5 ft 1 in Wt: 162 lbs BSA: 1.73 m2 HR: 62 bpm BP: 150/55 mmHg Rhythm: NSR, PVC, PACs, low QRS voltage, ST-T abns inferiorly and laterally Medical History Medical History: Hyperlipidemia, Smoking Medications: Spiriva,,,,, Aspirin,,,,, Atorvastatin,,,,, Metoprolol Succinate,,,,, Duoneb,,,,, ClonAZEPAM,,,,, Vit D3,,,,, Fluoxetine,,,,, Budesonide,,,,, ONdansetron,,,,, AcYCLOVir,,,,, OxYbutynin chloride,,,,, Allergies: No known drug allergies Cardiac Risk Factors: Hyperlipidemia, FHX of CAD, Smoking Stress Test Details Test: LEXISCAN HR Resting HR: 63 bpm Max Heart Rate (APMHR): 148 bpm Max HR Achieved: 83 bpm Target HR (85% APMHR): 126 bpm % of APMHR: 56 Recovery HR: 68 bpm BP Resting BP: 150/55 mmHg Max BP: 156/58 mmHg Recovery BP: 149.0/56.0 mmHg ECG Resting ECG: NSR, PVC, PACs, low QRS voltage, ST-T abns inferiorly and laterally Stress ECG: No significant ST changes Arrhythmia: None Clinical Exercise duration: 04:01 min Highest Stage Achieved: Stress ECG Conclusion Albuterol nebulizer treatment administered pre-test due to soa and wheezing 2 minutes: Pt had soa 3 minutes: soa, mild stomach and head discomfort 4 minutes: soa Recovery 1 minute: Aminophylline 100 mg slow IV given Recovery 2 minute: soa getting better. Head and stomach resolved Recovery 3 minute: sxs better Recovery 5 minute: soa almost gone Pt had soa, mild stomach and head discomfort No cp Frequent PACs, occ PVC No significant ST changes Conclusion: Unremarkable lexiscan stress Myoview images reported separately Test Summary REST 13:24 . . 63 . 150/ 55 . . Stage 1 01:00 . . 70 . . . . Stage 2 01:00 . . 80 . . . . Stage 3 01:00 . . 79 . 156/ 58 . . Stage 4 01:00 . . 79 . 140/ 76 . . Stage 4 01:01 . . 76 . 140/ 76 . Stop exercise at 04:01 RECOVERY 01:00 . . 77 . . . . RECOVERY 02:00 . . 74 . . . . RECOVERY 03:00 . . 69 . . . . RECOVERY 04:00 . . 66 . 125/ 53 . . RECOVERY 05:00 . . 69 . 149/ 56 . . RECOVERY 05:46 . . 62 . 149/ 56 . . Electronically signed by : Anna Gutierrez MD 06/21/2024 11:24:33
--- NOTE | 2024-06-17 11:31 | NM_ITS ---
APPROVED REPORT Exam: Nuclear Stress Test Indication: Chest pain, SOB, Fatigue, HTN, High cholesterol, Family history, CAD Patient Location: Outpatient Stress Tech: Grace Land PR Tech:Tami AppiahringtonJANNA RT(R)(N) Ht: 6 ft 0 in Wt: 165 lbs Bra Size: 42D HR: 63 bpm BP: 150/55 mmHg BSA: 1.96 m2 TID: 0.81 History: Chest pain, SOB, Fatigue, HTN, High cholesterol, Family history, CAD Procedure: Patient received 0.1 mg of intravenous Lexiscan, resting heart rate 63 bpm, resting blood pressure 150/55 mmHg, with Lexiscan maximum heart rate achieved was 83 bpm which is % of the maximum predicted heart rate and blood pressure was 156/58 mmHg. With Lexiscan, patient denied any complaint of chest pain. Cardiac Stress and Resting SPECT Images: Cardiac Stress and Resting SPECT images were obtained using technetium 99m Myoview 32.3 mCi stress and 10.42 mCi at rest. Resting and stress imaging in supine and prone positions demonstrate no evidence of fixed or reversible perfusion defects. Gated imaging demonstrates normal global and regional LV systolic function. LVEF is calculated at 69%. Conclusion: No evidence of fixed or reversible perfusion defects. Gated imaging demonstrates normal global and regional LV systolic function. LVEF is calculated at 69%. Electronically signed by : Anna Gutierrez MD 06/21/2024 11:26:00
--- NOTE | 2024-06-17 12:37 | CA_ITS ---
APPROVED REPORT EXAM: Comprehensive 2D, Doppler, and color-flow Echocardiogram Lasting Machine Operator: Susan Dawkins CRT Ht: 5 ft 1 in Wt: 162lbs BSA: 1.73 BP: 139/44 mmHg Indications: COPD, home o2, ex smoker, sob, htn, hld, pre-op Limited images due to lung interference, no parasternal images obtained as previous echo. 2D Dimensions LA Volume 35.20 mL LA Volume Index 20.30 mL/m2 (M/F) 16-34 EF AP2 76.7 % GL Strain -17.3 % M-Mode Dimensions TAPSE 1.24 (<1.7) LV Diastology E Decel Time 231 (160-240 msec) E/A Ratio 0.94 MED E' 5.2 (>= 7 cm/sec) MED A' 8.70 cm/s E'/MED E' Ratio 11.94 (<= 14) LAT E' 4.9 (>= 10 cm/sec) LAT A' 10.50 cm/s E/LAT E' Ratio 12.67 (<= 14) Aortic Valve AoV Peak Mateusz. 138.0 (50-130 cm/s) AO Peak GR. 7.60 mmHg Mitral Valve MV E Max Mateusz. 62.0 (40-130 cm/s) MV A Velocity 66.0 (40-130 cm/s) E/A Ratio 0.94 MV Decel. Time 231 (160-240 ms) Tricuspid Valve TR P. Velocity 193.00 cm/s RAP Estimate 10.00 mmHg RVSP 24.90 mmHg Left Ventricle The left ventricle is normal size. The left ventricular systolic function is normal. The left ventricular ejection fraction is within the normal range. There is increased LV wall thickness. There is normal LV segmental wall motion. Diastolic function is indeterminate. LVEF is 60%. Right Ventricle The right ventricle is not very well-visualized, but grossly appears normal in size and function. Atria The left atrium size is normal. The right atrium size is normal. The interatrial septum is not well-visualized. Aortic Valve The aortic valve leaflets are not well-visualized. There is no aortic valvular stenosis. No aortic regurgitation is present. Mitral Valve The mitral valve is normal in structure. No evidence of mitral valve stenosis. There is no mitral valve regurgitation noted. Tricuspid Valve The tricuspid valve leaflets are thin and pliable. Trace tricuspid regurgitation. There is insufficient TR jet to estimate RVSP. Pulmonic Valve The pulmonic valve leaflets are not well-visualized. Great Vessels The aortic root is not well-visualized. IVC is normal in size and collapses >50% with inspiration. Pericardium Small, anterior pericardial effusion is present. The largest pocket measures 0.4 cm in diastole. No echo indications of tamponade. Other Information Study Quality: Technically Difficult Conclusion Technically difficult study due to poor acoustic windows. Normal biventricular systolic function. No significant valvular stenosis or regurgitation in the visualized valves. Small, anterior pericardial effusion is present. The largest pocket measures 0.4 cm in diastole. No echo indications of tamponade. Electronically signed by : Anna Gutierrez MD 06/23/2024 11:49:11
[2024-06-17] MEDS: REGADENOSON 0.4MG/5ML SYRINGE 0.4 MG IV (15:26)
[2024-06-17] MEDS: ISOTOPE MYOVIEW (PER STUDY) 1 DOSE IV (15:27)
[2024-06-17] MEDS: SODIUM CHLORIDE 0.9% 10ML SYR (RAD ONLY) 10 ML IV ×2 (15:27)
== END 2024-06-17 23:59 | disposition home or self-care (01) ==
LOC: RAD 11:31
PROVIDERS: PCP Internal Medicine Adolescent Medicine; Visit Provider Nurse Practitioner
DX: I25.118 Atherosclerotic heart disease of native coronary artery with other forms of angina pectoris; Z01.818 Encounter for other preprocedural examination; Z87.891 Personal history of nicotine dependence; I51.89 Other ill-defined heart diseases
CPT/HCPCS: 78452; 93017; 93018; 93306; A9502; J2785

== ENCOUNTER 2024-07-06 07:07 | Outpatient (CLI) | payer MEDICARE, SELFPAY ==
--- NOTE | 2024-07-06 07:08 | CT_ITS ---
FINAL REPORT TECHNIQUE: Axial CT images of the abdomen and pelvis were obtained before and after the administration of IV contrast. This study was performed with techniques to keep radiation doses as low as reasonably achievable (ALARA). Individualized dose reduction techniques using automated exposure control or adjustment of mA and/or kV according to the patient''s size were employed. CLINICAL HISTORY: renal mass COMPARISON: 02/03/2023 FINDINGS: Abdomen: The lung bases are clear. The heart is normal in size. The liver has an unremarkable appearance, without evidence of mass or biliary duct dilatation. The gallbladder has been surgically resected.. The spleen is unremarkable. No adrenal masses present. The pancreas has an unremarkable appearance. The kidneys enhance normally. The aorta is normal in caliber. Moderate vascular calcifications are present. There is no free fluid or adenopathy. No mass or abnormal fluid collection is seen. Precontrast images demonstrate a less than 3 mm nonobstructing right renal stone, stable when compared to the prior CT.. Pelvis: The appendix is normal in appearance. The urinary bladder is unremarkable. No inflammatory process is seen. There is no evidence of mass or adenopathy. There is no evidence of bowel obstruction. The uterus has been surgically resected. IMPRESSION: No focal renal mass or abnormal enhancement is identified on this exam. Less than 3 mm nonobstructing right renal stone, stable since the prior CT. Reviewed, Interpreted and Dictated by Yoshi Gutierrez III, MD Transcribed by Yudith Novoa Authenticated and [facility]
[2024-07-06 07:37] LABS: Blood Urea Nitrogen 17 mg/dl (7-17); Estimated Glomerular Filt Rate 49 ml/min (>60); GFR (African American) 59 ML/MIN (>60)
[2024-07-06] MEDS: SODIUM CHLORIDE 0.9% 10ML SYR (RAD ONLY) 10 ML IV (08:01)
[2024-07-06] MEDS: IOPAMIDOL-370 (76%);100ML BOTTLE 75 ML IV (08:01)
== END 2024-07-06 23:59 | disposition home or self-care (01) ==
LOC: RAD 07:08
PROVIDERS: PCP Internal Medicine Adolescent Medicine; Visit Provider Urology
DX: N28.89 Other specified disorders of kidney and ureter
CPT/HCPCS: 36415; 74178; 82565; 84520; Q9967

== ENCOUNTER 2024-07-12 07:39 | Day surgery (SDC) | payer MEDICARE, SELFPAY ==
[2024-07-12] VITALS (9 sets, daily range): BP systolic 126–170; BP diastolic 53–69; PULSE 66–79; RESP 16–18; TEMP 35.9–36.6; O2SAT 94–100; BMI 22.1
--- NOTE | 2024-07-12 08:07 | EXP.ANES.CKL ---
[facility] Disclaimer: The information contained in this section may have been updated after the patient was seen, as this information can be updated by other users. Medical History Pre-op testing Atypical angina Diastolic dysfunction Dysphagia Stopped smoking with greater than 30 pack year history Multiple pulmonary nodules Eosinophilia Chronic hypoxemic respiratory failure Dyspnea on exertion Congestive heart failure Acute exacerbation of CHF (congestive heart failure) Coronary atherosclerosis of [place] coronary artery Acute systolic CHF (congestive heart failure) NSTEMI (non-ST elevated myocardial infarction) CKD (chronic kidney disease) Tobacco dependence Acute exacerbation of chronic obstructive airways disease Atypical chest pain Bradycardia Carotid artery stenosis HLD (hyperlipidemia) COPD (chronic obstructive pulmonary disease) Surgical History History of coronary artery stent placement History of hysterectomy History of colonoscopy History of esophagogastroduodenoscopy (EGD) History of lumpectomy No significant past surgical history Family History Other Cancer Family history of GERD Family history of arthritis Family history of hyperlipidemia Family history of hypertension Heart attack Social History Smoking Status: Former smoker tobacco type: cigarettes packs per day: 1 second hand exposure: No alcohol intake: never substance use type: denies use 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al status: retired Travel in the last 8 weeks: None household members: spouse housing: house marital status: 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al exposures/hazards: No caffeine: Yes [facility] Anesthesia Checklist Patient Identification Patient Identification: Arm Band and Verbal (Name & ) Structural Data Admitted From: Home Planned Operative Procedure/s: Excision right shoulder lesion Consent for Planned Operative Procedure(s) Verified: Yes Verified Documents: Surgical Consent and History and Physical NPO Status Verified Time NPO: 00:00 Additional verifications Anesthesia Reactions: No Hx Blood Transfusions: Yes Blood Transfusion Reaction: No Airway Assessment Mallampati Score:: Class II C-Spine Mobility Assessed: Yes TMJ Mobility Assessed: Yes Dentition: Dentures-poor fitting (Upper- removed) Neurological Assessment Level of Consciousness: Awake Hx Seizures: No Numbness or tingling in extremities: No Anesthesia Plan Anesthesia Risk discussed: Yes Anesthesia Plan: Verified ASA Class: III Anesthesia Type: Local & MAC
[2024-07-12] MEDS: LACTATED RINGERS 1000ML 1,000 ML 25 ML IV (08:20)
[2024-07-12] MEDS: CEFAZOLIN SODIUM 1 GM in 0.9 % SODIUM CHLORIDE 50 ML IV (09:45)
[2024-07-12] MEDS: ROPIVACAINE 0.5% 30ML VIAL 150 MG (10:00)
[2024-07-12] MEDS: LIDOCAINE 1% 20ML MDV 20 ML (10:00)
--- NOTE | 2024-07-12 10:24 | P.OP_ITS ---
Date of procedure: 07/12/24 Pre-op Diagnosis:: Skin lesion right posterior shoulder Post-op Diagnosis:: Same Procedure performed:: Excision of possible skin cancer right posterior shoulder (excisional length 6.5 cm) with intermediate complexity closure Surgeon:: Yoshi Márquez MD COMPOSITION MIXER:: Joi Branham Anesthesia: local and LMA Estimated blood loss (mL): 10 Operative findings:: Suspicious skin lesion. Abnormal subcutaneous tissue deep to the lesion and posteriorly Operative note:: Consent was obtained patient was taken the operating room. She was positioned in a supine position. General anesthesia was induced via LMA. She was positioned in lateral decubitus position. The area was prepped and draped in the standard surgical fashion. Lesion was marked with a skin marker for planned relatively generous grossly negative margins superiorly and inferiorly. Planned skin ellipse was marked at approximately 6-1/2 to 7 cm. Full-thickness incision was made. Dissection was carried down to subcutaneous tissues. Deep to the lesion there was some abnormal appearing subcutaneous tissue and dissection plane was extended somewhat deeper. Laterally there was some minor pigmentation to the subcutaneous tissues. Lesion was marked with a short suture superiorly and a long suture at the lateral (posterior) margin which is more towards the patient's midline. Hemostasis was achieved with electrocautery. Local goal anesthetic was infiltrated. Deep dermal tissues were reapproximated with interrupted 3-0 Vicryl. Skin was closed with interrupted 4-0 nylon. Clean dry sterile dressing was applied. Condition: stable Disposition: PACU Complications:: None immediately apparent
--- NOTE | 2024-07-12 10:36 | P.PNANES_ITS ---
[facility] Anesthesia Record Part I Anesthesia Record I Intake, IV Amount: 400 Hydration: Adequate Estimated blood loss (mL): 10 Urine output (mL): 0 Blood Products used (#): none Blood Pressure: 170/53 SaO2: 94 Pulse Rate: 79 Airway Patency: Patent Respiratory Rate: 16 Temperature: 96.6 F Patient is:: Awake (Talking) and Stable Stable to PACU at:: 10:35
--- NOTE | 2024-07-12 12:02 | P.PNANES_ITS ---
[facility] Anesthesia Record Part II Anesthesia Record Part II Discharge Time: 11:04 Destination: Surgical Day Care (OP Surgery) PACU nurse assessment reviewed?: Yes Patient Condition:: Good Anesthesia Complications:: None Swallowing reflex intact?: Yes Airway Patency: Patent Cyanosis?: No Blood Pressure: 156/54 SaO2: 97 Respiratory Rate: 16 Pulse Rate: 72 Temperature: 97.2 F Mental Status: Alert & Oriented Pain level:: 0 Nausea and/or vomitting:: None Intake, IV Amount: 400 Hydration: Adequate
== END 2024-07-12 11:32 | disposition home or self-care (01) ==
PROVIDERS: PCP Internal Medicine Adolescent Medicine; Visit Provider Surgery
PROC: (CPT 11606; principal; 2024-07-12 09:45)
DX: C44.622 Squamous cell carcinoma of skin of right upper limb, including shoulder (principal)
CPT/HCPCS: 11606; 12032; 88305; 96374; J1100; J2250; J2405; J3010; J7120

== ENCOUNTER 2024-08-09 13:51 | Outpatient (CLI) | payer MEDICARE, SELFPAY ==
[2024-08-09 13:59] LABS: Microscopic,Cath URINE MICROSCOPIC (MICROSCOPIC)
[2024-08-09 14:17] LABS: Appearance,Urine/Cath CLEAR (Clear); Bilirubin,Cath Negative (Negative); Blood, Urine/Cath Negative (Negative); Color,Urine/Cath YELLOW (Yellow); Glucose,Urine/Cath (UA) Negative (Negative); Ketones,Urine/Cath Negative (Negative); Leukocyte Esterase,Cath TRACE (Negative); Nitrate,Cath Negative (Negative); Protein,Urine/Cath Negative (Negative); Specific Gravity, Urine/Cath 1.015 (1.005-1.030); Urobilinogen,Cath 0.2 EU/dl (0.2)
[2024-08-09 14:50] LABS: Bacteria,Urine/Cath 1+ /lpf
== END 2024-08-09 23:59 | disposition home or self-care (01) ==
PROVIDERS: Visit Provider Urology
DX: R33.9 Retention of urine, unspecified (principal); N39.0 Urinary tract infection, site not specified
CPT/HCPCS: 81001; 87086

== ENCOUNTER 2024-08-10 11:38 | Outpatient (CLI) | payer MEDICARE, SELFPAY ==
[2024-08-10 12:04] LABS: Microscopic, Urine URINE MICROSCOPIC (MICROSCOPIC)
[2024-08-10 12:23] LABS: Appearance,Urine CLEAR (Clear); Bilirubin,Urine Negative (Negative); Blood, Urine Negative (Negative); Color,Urine YELLOW (Yellow); Glucose,Urine (UA) Negative (Negative); Ketones,Urine Negative (Negative); Leukocyte Esterase,Urine TRACE (Negative); Nitrate,Urine Negative (Negative); PH,Urine 6.5 (5.0-8.5); Protein,Urine Negative (Negative); Urobilinogen,Urine 0.2 EU/dl (0.2)
[2024-08-10 12:41] LABS: Bacteria,Urine Trace /lpf
== END 2024-08-10 23:59 | disposition home or self-care (01) ==
PROVIDERS: PCP Internal Medicine Adolescent Medicine; Visit Provider Urology
DX: N39.0 Urinary tract infection, site not specified (principal); R33.9 Retention of urine, unspecified
CPT/HCPCS: 81001; 87086

== ENCOUNTER 2024-09-06 13:00 | Outpatient (CLI) | payer MEDICARE, SELFPAY ==
[2024-09-06 15:40] LABS: Microscopic, Urine URINE MICROSCOPIC (MICROSCOPIC)
[2024-09-06 16:26] LABS: Appearance,Urine CLEAR (Clear); Bilirubin,Urine Negative (Negative); Blood, Urine Negative (Negative); Color,Urine YELLOW (Yellow); Glucose,Urine (UA) Negative (Negative); Ketones,Urine Negative (Negative); Leukocyte Esterase,Urine Negative (Negative); Nitrate,Urine Negative (Negative); Protein,Urine Negative (Negative); Urobilinogen,Urine 0.2 EU/dl (0.2)
[2024-09-06 16:43] LABS: RBC,Urine Occasional #/hpf (0-3); Squamous Epithelial Cell,Urine Occasional #/hpf (0-5); WBC,Urine Occasional #/hpf (0-3)
[2024-09-10 23:08] LABS: Atopobium vaginae Low - 0 Score (.); BVAB2 Low - 0 Score (.); Candida albicans NAA Negative (Negative); Candida glabrata Negative (Negative); Chlamydia Trachomatis NAA Negative (Negative); HSV 1 NAA Negative (Negative); HSV 2 NAA Negative (Negative); Megasphaera 1 Low - 0 Score (.); Neisseria gonorrhoeae NAA Negative (Negative); Trich vag NAA Negative (Negative)
== END 2024-09-06 23:59 | disposition home or self-care (01) ==
LOC: LAB.DROPOF 09-07 08:45
PROVIDERS: PCP Urology; Visit Provider Urology
DX: N39.0 Urinary tract infection, site not specified (principal); R33.9 Retention of urine, unspecified; N89.8 Other specified noninflammatory disorders of vagina
CPT/HCPCS: 81001; 87086; 87491; 87529; 87591; 87661; 87798; 87801

== ENCOUNTER 2024-09-10 07:37 | Day surgery (SDC) | payer MEDICARE, SELFPAY ==
[2024-09-08 10:41] VITALS: BMI 21.9
[2024-09-10 08:04] VITALS: BP 142/70; PULSE 72; RESP 18; TEMP 36.3; O2SAT 98
--- NOTE | 2024-09-10 08:14 | HMH.PROCNOTE ---
[facility] Procedure Note Date: 09/10/24 Time: 08:14 Procedure Note:: Chart review: The patient just complains of lower abdominal pressure. She says she has trouble taking Detrol due to nausea. She also had issues over Ditropan. I am suspicious that some of her lower abdominal complaints are GI in nature. Will seek a GI medical consult. Today she says her bladder pressure has gotten worse again. I added Detrol LA. I recomended the estrace again. She says her vaginal area has an odor. CTWWO is normal 07/20 except a stable 3 mm renal stone.
[2024-09-10] MEDS: 0.9 % SODIUM CHLORIDE 500 ML 25 ML IV (08:27)
--- NOTE | 2024-09-10 08:31 | P.PCN_ITS ---
[facility] Procedure Note Date: 09/10/24 Time: 08:31 Procedure Note:: Chart review: The patient complains of lower abdominal pressure. She says she had trouble taking Detrol LA because it upset her stomach. A lot of how she complaints seems GI in nature and we will seek a GI medical consultation. She periodically uses Estrace cream to help prevent recurrent UTI. Preop diagnosis: Abdominal pressure Postop diagnosis: Abdominal pressure Operative note the patient was brought to the outpatient cystoscopy suite. She is prepped and draped in the usual fashion. She underwent flexible cystoscopy. She has atrophic vaginitis. Her urethra is otherwise unremarkable. The bladder itself is [place] pink in color throughout without evidence of bladder stone tumor hemorrhage or infection. The ureteral orifice ease are normal bilaterally. She tolerated the procedure well.
[2024-09-10 08:32] VITALS: BP 154/87; PULSE 68; RESP 18; TEMP 36.5; O2SAT 99
[2024-09-10 15:03] LABS: Microscopic,Cath URINE MICROSCOPIC (MICROSCOPIC)
[2024-09-10 15:06] LABS: Appearance,Urine/Cath CLEAR (Clear); Bilirubin,Cath Negative (Negative); Blood, Urine/Cath Negative (Negative); Color,Urine/Cath YELLOW (Yellow); Glucose,Urine/Cath (UA) Negative (Negative); Ketones,Urine/Cath Negative (Negative); Leukocyte Esterase,Cath Negative (Negative); Nitrate,Cath Negative (Negative); PH,Urine/Cath 6.5 (5.0-8.5); Protein,Urine/Cath Negative (Negative); Urobilinogen,Cath 0.2 EU/dl (0.2)
[2024-09-10 15:41] LABS: Bacteria,Urine/Cath OCCASSIONAL /lpf; Mucus,Urine/Cath 1+ /lpf; WBC,Urine/Cath Occasional #/hpf (0-3)
== END 2024-09-10 08:42 | disposition home or self-care (01) ==
PROVIDERS: PCP Internal Medicine Adolescent Medicine; Visit Provider Urology
PROC: 0TJB8ZZ Inspection of Bladder, Via Natural or Artificial Opening Endoscopic (ICD-10-PCS; CPT 52000; principal; 2024-09-10 08:45)
DX: R10.9 Unspecified abdominal pain (principal); N95.2 Postmenopausal atrophic vaginitis
CPT/HCPCS: 52000; 81001

== ENCOUNTER 2024-09-30 10:36 | Day surgery (SDC) | payer MEDICARE, SELFPAY ==
[2024-09-28 11:04] VITALS: BMI 22.3
[2024-09-30 10:58] VITALS: BP 134/72; PULSE 72; RESP 20; TEMP 36.9; O2SAT 98
[2024-09-30] MEDS: LACTATED RINGERS 1000ML 1,000 ML 25 ML IV (11:07)
--- NOTE | 2024-09-30 11:21 | P.HP_ITS ---
History of Present Illness *Admission Date: 09/30/24 *Reason for visit:: Dysphagia/chronic GERD *History of present illness: Mrs. Black is a 74-year-old female who is here for diagnostic upper endoscopy secondary to dysphagia and persistent heartburn and reflux. The examination is deemed medically necessary for EGD. The patient has been seen, interviewed and examined prior to the procedure by both myself and the anesthesia provider. [facility] Disclaimer: The information contained in this section may have been updated after the patient was seen, as this information can be updated by other users. Medical History Pre-op testing Atypical angina Diastolic dysfunction Dysphagia Stopped smoking with greater than 30 pack year history Multiple pulmonary nodules Eosinophilia Chronic hypoxemic respiratory failure Dyspnea on exertion Congestive heart failure Acute exacerbation of CHF (congestive heart failure) Coronary atherosclerosis of [place] coronary artery Acute systolic CHF (congestive heart failure) NSTEMI (non-ST elevated myocardial infarction) CKD (chronic kidney disease) Tobacco dependence Acute exacerbation of chronic obstructive airways disease Atypical chest pain Bradycardia Carotid artery stenosis HLD (hyperlipidemia) COPD (chronic obstructive pulmonary disease) Surgical History History of coronary artery stent placement History of hysterectomy History of colonoscopy History of esophagogastroduodenoscopy (EGD) History of lumpectomy No significant past surgical history Family History Other Cancer Family history of GERD Family history of arthritis Family history of hyperlipidemia Family history of hypertension Heart attack Social History (Updated 09/30/24 @ 10:59 by Evelin Carlos RN) Smoking Status: Former smoker tobacco type: cigarettes packs per day: 1 second hand exposure: No alcohol intake: never substance use type: denies use 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al status: retired Travel in the last 8 weeks: None household members: spouse housing: house marital status: 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: [employer] 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al exposures/hazards: No caffeine: Yes Other Medical History Have you received the Flu Vaccine for this season: No Have you received the Pneumonia Vaccine: Yes Review of Systems Review of Systems Review of systems (narrative): Negative *Cardiovascular Comments: Negative *Gastrointestinal Comments: Negative *Genitourinary Comments: Negative *Musculoskeletal Comments: Negative *Neurologic Comments: Negative Meds Home Medications and Allergies Home Medications ?Medication ?Instructions ?Recorded ?Confirmed ?Type aspirin 81 mg tablet,delayed 81 mg PO HS 01/30/19 09/30/24 History release atorvastatin 40 mg tablet 40 mg PO HS 12/17/21 09/30/24 History cholecalciferol (vitamin D3) 25 25 mcg PO DAILY Supplement 04/25/22 09/30/24 History mcg (1,000 unit) capsule metoprolol succinate 25 mg 12.5 mg PO HS 04/25/22 09/30/24 History tablet,extended release 24 hr esomeprazole magnesium 20 mg 20 mg PO BID 07/03/22 09/30/24 History capsule,delayed release budesonide 0.5 mg/2 mL suspension 0.5 mg inhalation Q12H 04/10/23 09/30/24 History for nebulization ipratropium 0.5 mg-albuterol 3 mg 3 ml inhalation QID Asthma 04/11/23 09/30/24 History (2.5 mg base)/3 mL nebulization soln promethazine-DM 6.25 mg-15 mg/5 mL 5 ml PO Q4-6H PRN Cough 01/05/24 09/30/24 History oral syrup formoterol fumarate 20 mcg/2 mL 2 ml inhalation BID 90 days #180 mL 02/09/24 09/30/24 Rx solution for nebulization (Perforomist) fluoxetine 10 mg capsule 40 mg PO DAILY 03/25/24 09/30/24 History ondansetron 4 mg disintegrating 4 mg PO NEEDED PRN Nausea 03/25/24 09/30/24 History tablet prednisone 20 mg tablet 20 mg PO DAILY 03/25/24 09/30/24 History chlorhexidine gluconate 0.12 % See Rx Instructions .Route 05/28/24 09/30/24 History mouthwash .COMPLEX PRN . clonazepam 1 mg tablet (Klonopin) 1 mg PO TID 06/30/24 09/30/24 History nitrofurantoin macrocrystal 100 mg 100 mg PO HS 30 days #30 caps 09/06/24 09/30/24 Rx capsule (Macrodantin) linaclotide 290 mcg capsule 290 mcg PO DAILY #90 caps 09/22/24 09/30/24 Rx (Linzess) fluticasone fur. 200 mcg-umeclid 1 inh inhalation DAILY 09/30/24 09/30/24 History 62.5 mcg-vilant 25 mcg inhalat.powder (Trelegy Ellipta) New Prescriptions to Start Prescriptions: Allergies Allergy/AdvReac Type Severity Reaction Status Date / Time No Known Allergies Allergy Verified 09/30/24 10:51 Exam Data for Last 24 hours Vital signs and Labs for Last 24 Hours: Temp Pulse Resp BP Pulse Ox O2 Del Method O2 Flow Rate 98.4 F 72 20 134/72 98 Nasal Cannula 3 09/30/24 10:58 09/30/24 10:58 09/30/24 10:58 09/30/24 10:58 09/30/24 10:58 09/30/24 10:58 09/30/24 10:58 I & O for Last 24 hours: Intake & Output 09/27/24 09/28/24 09/29/24 09/30/24 23:59 23:59 23:59 23:59 Weight 160 lb *Routine HEENT Exam Head: Present normocephalic Eye: Present EOMI and PERRL ENT: Present mucous membranes moist *Routine Neck Exam Neck: Present supple *Routine Respiratory Exam Respiratory: Present CTA bilaterally *Routine Cardiovascular Exam Cardiovascular: Present RRR *Routine Abdominal Exam Abdominal: Present soft and normoactive bowel sounds; Absent tenderness *Routine Rectal Exam Rectal:: deferred *Routine Genitalia Exam Genitalia:: deferred *Routine Extremities Exam Extremities: Absent cyanosis, clubbing or edema *Routine Skin Exam Skin: Present warm; Absent rash *Routine Neurological Exam Neurological: Present alert and oriented X3 Assessment and Plan *Assessment and plan (1) Dysphagia: Status: Acute Category: Medical Code(s): R13.10 - Dysphagia, unspecified (2) Chronic GERD: Status: Acute Category: Medical Code(s): K21.9 - Gastro-esophageal reflux disease without esophagitis (3) Heartburn: Status: Acute Category: Medical Code(s): R12 - Heartburn Plan A/P: 1. Recurrent dysphagia with intractable heartburn/reflux despite PPI therapy is the preprocedural diagnosis. The patient will be anesthetized/sedated using MAC sedation. The patient has been seen and examined. Cardiac and lung assessment prior to the examination is stable. Proceed with planned EGD
[2024-09-30 11:24] VITALS: O2SAT 66
--- NOTE | 2024-09-30 11:24 | P.PNANES_ITS ---
[facility] Disclaimer: The information contained in this section may have been updated after the patient was seen, as this information can be updated by other users. Medical History Pre-op testing Atypical angina Diastolic dysfunction Dysphagia Stopped smoking with greater than 30 pack year history Multiple pulmonary nodules Eosinophilia Chronic hypoxemic respiratory failure Dyspnea on exertion Congestive heart failure Acute exacerbation of CHF (congestive heart failure) Coronary atherosclerosis of [place] coronary artery Acute systolic CHF (congestive heart failure) NSTEMI (non-ST elevated myocardial infarction) CKD (chronic kidney disease) Tobacco dependence Acute exacerbation of chronic obstructive airways disease Atypical chest pain Bradycardia Carotid artery stenosis HLD (hyperlipidemia) COPD (chronic obstructive pulmonary disease) Surgical History History of coronary artery stent placement History of hysterectomy History of colonoscopy History of esophagogastroduodenoscopy (EGD) History of lumpectomy No significant past surgical history Family History Other Cancer Family history of GERD Family history of arthritis Family history of hyperlipidemia Family history of hypertension Heart attack Social History (Updated 09/30/24 @ 10:59 by Evelin Carlos RN) Smoking Status: Former smoker tobacco type: cigarettes packs per day: 1 second hand exposure: No alcohol intake: never substance use type: denies use 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al status: retired Travel in the last 8 weeks: None household members: spouse housing: house marital status: 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al exposures/hazards: No caffeine: Yes [facility] Anesthesia Checklist Patient Identification Patient Identification: Arm Band Structural Data Admitted From: Home Planned Operative Procedure/s: EGD Consent for Planned Operative Procedure(s) Verified: Yes Verified Documents: Surgical Consent and History and Physical NPO Status Verified Time NPO: 00:00 Additional verifications Anesthesia Reactions: No Hx Blood Transfusions: Yes Blood Transfusion Reaction: No Airway Assessment Mallampati Score:: Class II C-Spine Mobility Assessed: Yes TMJ Mobility Assessed: Yes Dentition: Poor Dentition Neurological Assessment Level of Consciousness: Awake, Alert and Appropriate Anesthesia Plan Anesthesia Risk discussed: Yes Anesthesia Plan: Verified ASA Class: III Anesthesia Type: MAC
--- NOTE | 2024-09-30 11:33 | HMH.PROCNOTE ---
[facility] Procedure Note Date: 09/30/24 Time: 11:33 Procedure Note:: Upper Endoscopy Procedure Report: Esophagogastroduodenoscopy with cold biopsies and TTS balloon dilation Endoscopost: Daniel Corrales II, MD Referring Physician: Ephraim Lombardo M.D. Date of Procedure: September 30, 2024 Equipment: Olympus GIF 190 standard upper endoscope Sedation: MAC sedation Indications: Mrs. Black is a 74-year-old female with dysphagia. She has had several prior endoscopies with dilation and her last EGD with mn showed some cricopharyngeal spasm. She does have persistent heartburn and reflux despite taking Nexium twice daily. The patient has had endoscopies and March 2021, February 2022 and March 2023. She does have a lot of bloating, belching and gassiness. She also reports chronic constipation. The patient did have a colonoscopy in May 2021 and had 9 polyps (tubulovillous adenoma x 1/tubular adenomas x 7 and hyperplastic polyp x 1) which were removed. She is overdue for repeat surveillance colonoscopy. Procedure: Prior to the procedure, a history and physical exam was performed, and patient's medications and allergies were reviewed. The risks, benefits and alternatives of the sedation and procedure were discussed with the patient. All questions were answered and informed consent was obtained. The patient was brought to the procedure room. Patient identification and proposed procedure were verified by the physician and the nurse. The patient was placed in a left lateral decubitus position and the scope was passed under direct vision. Throughout the procedure, the patient's blood pressure, pulse, and oxygen saturations were monitored continuously. The upper GI endoscopy was accomplished without difficulty. The patient tolerated the procedure well. Findings: The scope was passed directly into the upper esophagus and advanced to the third portion of the duodenum. The post bulbar duodenum, ampulla and duodenal bulb were normal with normal mucosa and conniventes. The scope was withdrawn through a normal duodenal bulb and pylorus into the stomach. There was some linear reactive gastropathy of the antrum. There was a small hyperplastic appearing polyp (5 mm) in the antrum removed via cold biopsy. The body and fundus of the stomach were normal. Upon retroflexion there was a small 2 cm hiatal hernia. The scope was then withdrawn into the esophagus. There was no evidence of reflux esophagitis or Poole's. There was no Schatzki's ring. There was no furrowing or corrugation or evidence of EOE. There was some areas of whitish plaque like lesions adherent to the mucosa suggestive of mild candidal esophagitis. Biopsies were taken from the midesophagus to rule out candidal esophagitis. There were strong tertiary contractions and esophageal dysmotility. There was a fibrous web in the upper esophagus and the entire esophagus was dilated to 19 mm (57 [place]) with a TTS hydrostatic balloon with fracturing of the proximal web. The remainder of the esophageal mucosa was normal. Impression: 1. 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 Probable mild esophageal candidiasis 3. Nonerosive GERD with moderate esophageal dysmotility and small 2 cm hiatal hernia 4. Diminutive antral polyp?rule out hyperplastic polyp 5. Linear reactive gastropathy of antrum Plan: I will follow-up the biopsies. The patient should have clinical improvement with dilation. We will discuss additional treatment options for her chronic heartburn and GERD. Given the patient's history of multiple adenomatous polyps with an advanced adenoma (tubulovillous adenoma), I will recommend repeat surveillance colonoscopy since she is overdue.
[2024-09-30 11:55] VITALS: BP 124/76; PULSE 62; RESP 17; O2SAT 97
[2024-09-30 12:15] VITALS: BP 161/77; PULSE 65; RESP 17; O2SAT 98
== END 2024-09-30 12:30 | disposition home or self-care (01) ==
PROVIDERS: PCP Internal Medicine Adolescent Medicine; Visit Provider Internal Medicine Gastroenterology
PROC: 0DJ08ZZ Inspection of Upper Intestinal Tract, Via Natural or Artificial Opening Endoscopic (ICD-10-PCS; CPT 43235; principal; 2024-09-30 12:30)
DX: R13.10 Dysphagia, unspecified (principal); K21.9 Gastro-esophageal reflux disease without esophagitis; R12 Heartburn; K59.09 Other constipation; Z86.0100 Personal history of colon polyps, unspecified; K31.9 Disease of stomach and duodenum, unspecified; K31.7 Polyp of stomach and duodenum; K22.4 Dyskinesia of esophagus; K44.9 Diaphragmatic hernia without obstruction or gangrene; B37.81 Candidal esophagitis; Q39.4 Esophageal web
CPT/HCPCS: 43239; 43249; 88305; C1726; J7120

== ENCOUNTER 2024-12-06 11:26 | Observation (INO) | payer MEDICARE, SELFPAY ==
[2024-12-06] VITALS (14 sets, daily range): BP systolic 96–144; BP diastolic 35–68; PULSE 61–132; RESP 15–24; TEMP 36.5–36.8; O2SAT 94–100; BMI 22.1; BMI 21.5
--- NOTE | 2024-12-06 11:34 | ECG_ITS ---
APPROVED REPORT Exam: Resting ECG HR:76 bpm ECG Measurements Heart Rate 76 AXES ND 130 P 267 QRSd 83 QRS 29 QT 411 T 237 QTc 441 Conclusion JUNCTIONAL RHYTHM WITH OCCASIONAL ECTOPIC PREMATURE COMPLEXES LOW QRS VOLTAGE [QRS DEFLECTION < 0.5/1.0 mV IN LIMB/CHEST LEADS] MODERATE T-WAVE ABNORMALITY, CONSIDER ANTEROLATERAL ISCHEMIA [-0.1+ mV T-WAVE IN V3-V6] MODERATE T-WAVE ABNORMALITY, CONSIDER INFERIOR ISCHEMIA [-0.1+ mV T-WAVE IN II/aVF] ABNORMAL ECG No STEMI Electronically signed by : JESSA RICE, 12/07/2024 06:56:56
[2024-12-06 11:40] LABS: Coronavirus 19, PCR Not Detected (NotDetected); Influenza A, PCR Not Detected (NotDetected); Influenza B, PCR Not Detected (NotDetected)
--- NOTE | 2024-12-06 12:07 | ED_ITS ---
<Statement entered by Ciaran Tsai MD - 12/11/24 07:20> I was consulted by the LINDA, and we discussed the complexity of the problems being addressed. I approved the treatment and management plan for this patient's care in the emergency department, thus performing a substantive portion of the medical decision making. Ciaran Tsai MD, DEE, FACEP Discharge Plan Disposition Patient Disposition: Admitted Condition: Fair Clinical Impressions Clinical Impression: Non-ST elevation [place] (NSTEMI), Declining functional status Acute exacerbation of CHF (congestive heart failure) Qualifiers: Heart failure type: unspecified Qualified Code(s): I50.9 - Heart failure, unspecified Discharge ED Provider: Ciaran Tsai General Adult HPI General Chief complaint: Shortness of Breath/Dyspnea Stated complaint: SOA, Trouble swallowing, Body aches Time Seen by Provider: 12/06/24 12:07 Mode of Arrival: Wheelchair Source of Information: Patient Limitations: No Limitations Description of Symptoms (Recalled from ER Triage Doc. by RN): PT REPORT SHORTNESS OF BREATH X 3 WEEKS. SEEN BY PCP ON FRIDAY FOR SAME SYMPTOMS. REPORTS NO IMPROVEMENT. DENIES COUGH, REPORTS NAUSEA. WEARS BASELINE O2 AT 3L/NC History of Present Illness HPI narrative: Patient presents for evaluation of shortness of breath. Patient states that she has been short of breath for [address] Lombardo prescribed antibiotics steroids and morphine. That is not helped her at all. Patient is now reporting all of her weakness and fatigue. Patient does have COPD and is on 3 L by nasal cannula 19/05. She denies any fever chills hemoptysis hematochezia melena nausea vomiting diarrhea. Related Data Home Medications ?Medication ?Instructions ?Recorded ?Confirmed aspirin 81 mg tablet,delayed 81 mg PO HS 01/30/19 12/06/24 release atorvastatin 40 mg tablet 40 mg PO HS 12/17/21 12/06/24 cholecalciferol (vitamin D3) 25 25 mcg PO DAILY Supplement 04/25/22 12/06/24 mcg (1,000 unit) capsule metoprolol succinate 25 mg 12.5 mg PO HS 04/25/22 12/06/24 tablet,extended release 24 hr budesonide 0.5 mg/2 mL suspension 0.5 mg inhalation Q12H 04/10/23 12/01/24 for nebulization fluticasone fur. 200 mcg-umeclid 1 inh inhalation DAILY 09/30/24 12/01/24 62.5 mcg-vilant 25 mcg inhalat.powder (Trelegy Ellipta) azithromycin 250 mg tablet 250 mg PO MOWEFR 12/01/24 12/06/24 clonazepam 0.5 mg tablet 0.5 mg PO DIRECTED 12/01/24 12/06/24 fluoxetine 40 mg capsule 40 mg PO DAILY 12/01/24 12/06/24 linaclotide 290 mcg capsule 290 mcg PO DAILY PRN Abdominal 12/01/24 12/06/24 (Linzess) Discomfort morphine concentrate 10 mg/0.5 mL 10 mg PO TIDP PRN Shortness Of 12/01/24 12/06/24 oral solution Breath esomeprazole magnesium 20 mg 20 mg PO BID 12/06/24 12/06/24 capsule,delayed release Previous Rx's ?Medication ?Instructions ?Recorded formoterol fumarate 20 mcg/2 mL 2 ml inhalation BID 90 days #180 mL 02/09/24 solution for nebulization (Perforomist) metoclopramide HCl 10 mg tablet 10 mg PO BIDWMEAL #60 tabs 12/01/24 Allergies Allergy/AdvReac Type Severity Reaction Status Date / Time No Known Allergies Allergy Verified 12/01/24 13:54 [facility] Disclaimer: The information contained in this section may have been updated after the patient was seen, as this information can be updated by other users. Medical History Pre-op testing Atypical angina Diastolic dysfunction Dysphagia Stopped smoking with greater than 30 pack year history Multiple pulmonary nodules Eosinophilia Chronic hypoxemic respiratory failure Dyspnea on exertion Congestive heart failure Acute exacerbation of CHF (congestive heart failure) Coronary atherosclerosis of [place] coronary artery Acute systolic CHF (congestive heart failure) NSTEMI (non-ST elevated myocardial infarction) CKD (chronic kidney disease) Tobacco dependence Acute exacerbation of chronic obstructive airways disease Atypical chest pain Bradycardia Carotid artery stenosis HLD (hyperlipidemia) COPD (chronic obstructive pulmonary disease) Surgical History History of coronary artery stent placement History of hysterectomy History of colonoscopy History of esophagogastroduodenoscopy (EGD) History of lumpectomy No significant past surgical history Family History Other Cancer Family history of GERD Family history of arthritis Family history of hyperlipidemia Family history of hypertension Heart attack Social History (Updated 12/06/24 @ 11:58 by Tami Garza RN) Smoking Status: Former smoker tobacco type: cigarettes packs per day: 1 second hand exposure: No alcohol intake: never substance use type: denies use 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al status: retired Travel in the last 8 weeks: None housing: house marital status: 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al exposures/hazards: No caffeine: Yes Have you lived/traveled outside [place] in past 30 days?: No Contact w/someone who lives/traveled outside US past 30 days?: No Exposure to someone with infectious disease in past 14 days?: No Do you have a fever (greater than 100.4 F or 38 C)?: No Have you tested positive for COVID-19: No Exposed to someone with COVID-19 in past 14 days?: No Do you have a sore throat?: No Do you have a cough?: No Do you have any weakness?: No Are you experiencing any nausea/vomitting?: Yes Do you have any diarrhea?: No Are you experiencing any unusual bleeding?: No Do you have any muscle aches/pain?: No Do you have any abdominal pain?: No Are you experiencing loss of taste or smell?: No Other Medical History Have you received the Flu Vaccine for this season: No Have you received the Pneumonia Vaccine: Yes ROS Obtained: Yes Systems reviewed as appropriate & no additional complaints except as documented Physical Exam General General appearance: alert and in no apparent distress Respiratory Respiratory exam: Absent normal lung sounds bilaterally (Patient has significantly diminished breath sounds in the left lung but no adventitious sound), respiratory distress, wheezes or accessory muscle use Cardiovascular Cardiovascular exam: Present regular rate Neurological Exam Neurological exam: Present alert and oriented X3 Medical Decision Making Medical Records Medical records reviewed: Yes I reviewed the patient's medical records. Screening: Per USPSTF and CDC recommendations, given the prevalence of disease in our region, it is our hospital?s policy to screen for HIV and viral Hepatitis for all patients aged 18 and over and those with ongoing risk factors. [place] Inquiry Pt receiving controlled substance: No Vital Signs: 12/06/24 11:28 12/06/24 11:38 12/06/24 12:25 Temperature 98.3 F Temperature Source Oral Pulse Rate 70 62 Pulse Rate [Apical] 62 Respiratory Rate 24 24 16 Blood Pressure 144/68 H 96/47 L Blood Pressure [Left Arm] 144/68 H Blood Pressure Mean [Left Arm] 93 Blood Pressure Source Blood Pressure Source [Left Arm] Automatic Cuff Blood Pressure Position Blood Pressure Position [Left Arm] Sitting 02 Sat by Pulse Oximetry 96 96 100 Oxygen Delivery Method Nasal Cannula Nasal Cannula Room Air Oxygen Flow Rate (LPM) 3 3 12/06/24 12:31 12/06/24 13:00 12/06/24 13:30 Temperature Temperature Source Pulse Rate 61 61 62 Pulse Rate [Apical] Respiratory Rate 16 15 18 Blood Pressure 105/49 L 118/35 L 111/42 L Blood Pressure [Left Arm] Blood Pressure Mean [Left Arm] Blood Pressure Source Blood Pressure Source [Left Arm] Blood Pressure Position Blood Pressure Position [Left Arm] 02 Sat by Pulse Oximetry 100 98 100 Oxygen Delivery Method Room Air Room Air Room Air Oxygen Flow Rate (LPM) 12/06/24 14:00 12/06/24 14:31 12/06/24 15:01 Temperature Temperature Source Pulse Rate 63 65 67 Pulse Rate [Apical] Respiratory Rate 18 16 18 Blood Pressure 124/55 L 138/50 L 137/46 L Blood Pressure [Left Arm] Blood Pressure Mean [Left Arm] Blood Pressure Source Blood Pressure Source [Left Arm] Blood Pressure Position Blood Pressure Position [Left Arm] 02 Sat by Pulse Oximetry 100 100 98 Oxygen Delivery Method Room Air Room Air Room Air Oxygen Flow Rate (LPM) 12/06/24 15:16 Temperature 97.9 F Temperature Source Oral Pulse Rate 68 Pulse Rate [Apical] Respiratory Rate 18 Blood Pressure 137/46 L Blood Pressure [Left Arm] Blood Pressure Mean [Left Arm] Blood Pressure Source Automatic Cuff Blood Pressure Source [Left Arm] Blood Pressure Position Sitting Blood Pressure Position [Left Arm] 02 Sat by Pulse Oximetry Oxygen Delivery Method Nasal Cannula Oxygen Flow Rate (LPM) 3 Lab Data Lab results reviewed: Yes I reviewed the patient's lab results. Lab Results 12/06/24 11:35: SARS-CoV-2 (PCR) Not detected, Influenza A Untype (PCR) Not detected, Influenza Type B (PCR) Not detected 12/06/24 11:50: WBC 12.0 H, RBC 3.85 L, Hgb 11.1 L, Hct 35.4 L, MCV 91.9, MCH 28.8, MCHC 31.4 L, RDW 13.2, Plt Count 215, MPV 11.3 H, Neut % (Auto) 85.2 H, L ymph % (Auto) 9.3 L, [place] % (Auto) 3.3, Eos % (Auto) 1.0, Baso % (Auto) 0.6, N eut # (Auto) 10.3 H, Lymph # (Auto) 1.1, [place] # (Auto) 0.4, Eos # (Auto) 0.1, Baso # (Auto) 0.1, D-Dimer 0.67 H, VBG pH 7.42 H, VBG pCO2 40.4, VBG pO2 100.5 H , VBG HCO3 26.1, VBG Total CO2 27.3 H, VBG O2 Saturation 97.9 H, VBG Base Excess 1.7, VBG Lactic Acid 1.3, Sodium 137, Potassium 4.3, Chloride 101, Carbon Dioxide 33 H, Anion Gap 7.3, BUN 15, Creatinine 0.90, Estimated Creat Clear 58, Estimated GFR 62, Est GFR ( Amer) 74, Glucose 109 H, Calcium 8.6, Magnesium 1.6, Total Bilirubin 0.6, AST 47 H, ALT 29, Alkaline Phosphatase 113, Troponin I 0.06 H, NT-Pro-B Natriuret Pep 4500 H, Total Protein 5.9 L, Albumin 3.8, Globulin 2.1, Albumin/Globulin Ratio 1.8, Procalcitonin 0.059, HCV Ab BRITTANY w/Rflx PCR Qn Negative, HIV Ag/Ab Combo Qual Negative 12/06/24 11:50 12/06/24 11:50 Orders (Tests/Meds): ED MEDICATIONS Generic Name Dose Route Start Last Admin Trade Name Freq PRN Reason Stop Dose Admin Albuterol/Ipratropium 3 ml 12/06/24 18:00 Ipratropium/Albuterol 3 Ml Neb IH 01/05/25 17:59 Q6RT TANA Morphine Sulfate 5 mg 12/06/24 14:48 Morphine 20mg/Ml 1ml Oral Solution PO 01/05/25 14:47 Q4HP PRN Dyspnea or moderate pain Phenol 0 ml 12/06/24 12:55 12/06/24 13:02 Phenol Throat [place] 177 Ml Bottle MM 01/05/25 12:54 1 spray Q2HP PRN Administration THROAT PAIN Discontinued Medications Generic Name Dose Route Start Last Admin Trade Name Freq PRN Reason Stop Dose Admin Acetaminophen 1,000 mg 12/06/24 13:14 12/06/24 13:24 Acetaminophen 1,000mg/100ml Vial IV 12/06/24 13:15 1,000 mg ONCE ONE Administration Albuterol/Ipratropium 3 ml 12/06/24 12:12 12/06/24 12:29 Ipratropium/Albuterol 3 Ml Neb IH 12/06/24 12:13 3 ml ONCE ONE Administration Bumetanide 1 mg 12/06/24 14:48 Bumetanide 1mg/4ml Vial IV 12/06/24 14:49 ONCE ONE Dexamethasone Sodium Phosphate 10 mg 12/06/24 12:12 12/06/24 12:30 Dexamethasone 4mg/Ml 5ml Mdv IV 12/06/24 12:13 10 mg ONCE ONE Administration Ondansetron HCl 4 mg 12/06/24 13:14 12/06/24 13:24 Ondansetron 4mg/2ml Vial IV 12/06/24 13:15 4 mg ONCE ONE Administration ORDERS Category Date Time Status Consult to Hospice [CONS] Routine Cons 12/06/24 14:56 Active Chest XR -- portable [XR chest portable] Stat Exams 12/06/24 13:03 Completed BNP [NT Pro Brain Natriuretic Pep.] Stat Lab 12/06/24 11:50 Completed CBC w/Auto Diff [Complete Blood Count Auto Diff] Stat Lab 12/06/24 11:50 Completed CMP [Comprehensive Metabolic Panel] Stat Lab 12/06/24 11:50 Completed Complete Blood Count Auto Diff AMLAB Lab 12/07/24 06:00 Ordered Comprehensive Metabolic Panel AMLAB Lab 12/07/24 06:00 Ordered D-Dimer Stat Lab 12/06/24 11:50 Completed Full Resp Panel w/COVID ([facility]) Routine Lab 12/06/24 11:35 Received HIV Combo Stat Lab 12/06/24 11:50 Completed Hepatitis C Ab Qual. W/ RFX Stat Lab 12/06/24 11:50 Completed Magnesium AMLAB Lab 12/07/24 06:00 Ordered Magnesium Stat Lab 12/06/24 11:50 Completed Procalcitonin Stat Lab 12/06/24 11:50 Completed Rapid PCR Covid and Flu A/B Stat Lab 12/06/24 11:35 Completed Trop I [Troponin I] Stat Lab 12/06/24 11:50 Completed Troponin I Q3H Lab 12/06/24 15:08 Received Troponin I Q3H Lab 12/06/24 18:15 Ordered VBG [Venous Blood Gas] Stat RT 12/06/24 11:50 Completed HEART Score History (anamnesis): Slightly suspicious ECG: Non-specific disturbance Age: >65 years Risk factors: Atherosclerosis history Troponin: 1-3x normal limit HEART Score: 6 Medical Decision Narrative: In summary patient is a 74-year-old female who presents to the emergency department for evaluation of 3 weeks of dyspnea and asthenia. Patient is hemodynamically stable with a blood pressure 144/68 pulse 62 with normal sinus rhythm on the bedside monitor breathing 24 times a minute satting at 96% on 3 L by nasal cannula upon arrival, afebrile at 98.3. Physical exam is remarkable for tachypnea but no accessory muscle use or labored breathing, diminished breath sounds throughout the left lung [place] with no adventitious sounds normal breath sounds in the right. No dependent edema noted heart sounds are S1 and S2 without murmurs gallops rubs or thrills abdomen soft nontender patient has Holder Coma Score 15 and she is awake alert and oriented to person place and circumstance. Differential diagnosis includes COPD exacerbation versus CHF exacerbation versus lower respiratory tract infection versus PE etc. Initial workup will be conducted with hematologic labs twelve-lead EKG plain film chest x-ray VBG respiratory swab. Initial interventions include continuous cardiac monitoring and pulse oximetry for now along with her baseline 3 L by nasal cannula. Initial workup reviewed by me and she has a white count of 12 with a hemoglobin hematocrit of 11.1 and 35.4 respectively with an absolute neutrophil count of 10.3 patient's D-dimer 0.67 VBG shows a pH of 7.42 pCO2 of 40.4 with a VBG lactic acid 1.3 initial troponin is elevated at 0.06 NT proBNP is elevated at 4500 procalcitonin is normal at 0.59 and a respiratory panel shows no acute processes my informal interpretation of her plain film chest x-ray shows no acute processes. Via years criteria her D-dimer of 0.67 and given her poor tissue perfusion of her heart elevated NT BNP PE is excluded as she has no chest pain. Thus I had interactive discussion with hospital medicine regarding patient PILLAI findings and patient management and Dr. Paris came and evaluated the patient in person. He plans to admit the patient for further evaluation and care. Critical Care Critical Care Time Critical Care Time: No
[2024-12-06 12:20] LABS: Basophils # 0.1 K/mm3 (0-0.2); Basophils % 0.6 % (0.1-2.0); Eosinophils # 0.1 K/mm3 (0.0-0.4); Hematocrit 35.4 % (37.0-47.0); Hemoglobin 11.1 g/dL (12.2-16.2); Lymphocytes # 1.1 K/mm3 (0.7-4.5); Lymphocytes % 9.3 % (10-50); Mean Corpuscular HGB Conc 31.4 g/dL (31.8-35.4); Mean Corpuscular Hemoglobin 28.8 pg (27.0-31.2); Mean Corpuscular Volume 91.9 fl (81-99); Mean Platelet Volume 11.3 fl (7.4-10.4); Monocytes # 0.4 K/mm3 (0.1-1.0); Monocytes % 3.3 % (1.7-9.3); Neutrophils # 10.3 K/mm3 (1.8-7.8); Neutrophils % 85.2 % (37.0-80.0); Platelet Count 215 K/mm3 (142-424); Red Blood Count 3.85 M/mm3 (4.20-5.40); Red Cell Distribution Width 13.2 % (11.5-17.5)
[2024-12-06 12:24] LABS: Albumin Level 3.8 g/dl (3.5-5.0); Chloride 101 mmol/L (98-107); Potassium 4.3 mmoL/L (3.5-5.1); Sodium 137 mmol/L (136-145)
[2024-12-06 12:26] LABS: Alanine Aminotransferase 29 U/L (12-78); Alkaline Phosphatase 113 U/L (38-126); Anion Gap 7.3 mEq/L (5-15); Aspartate Amino Transferase 47 U/L (14-36); Bilirubin,Total 0.6 mg/dl (0.2-1.3); Blood Urea Nitrogen 15 mg/dl (7-17); Carbon Dioxide 33 mmol/L (22.0-30.0); Creatinine Clearance Estimated 58 mL/min (50-200); Estimated Glomerular Filt Rate 62 ml/min (>60); GFR (African American) 74 ML/MIN (>60)
[2024-12-06 12:27] LABS: Albumin/Globulin Ratio 1.8 (1.1-1.8); Calcium 8.6 mg/dl (8.4-10.2); Globulin 2.1 g/dL (1.3-3.2); Glucose 109 mg/dl (74-100); Magnesium 1.6 mg/dl (1.6-2.3); Total Protein,Serum 5.9 g/dl (6.3-8.2)
[2024-12-06] MEDS: IPRATROPIUM/ALBUTEROL 3 ML NEB IH ×2 (12:29→18:23)
[2024-12-06] MEDS: DEXAMETHASONE 4MG/ML 5ML MDV 10 MG IV (12:30)
[2024-12-06 12:33] LABS: D-Dimer 0.67 ug/mL (0.0-0.5)
[2024-12-06 12:37] LABS: NT Pro Brain Natriuretic Pep. 4500 pg/mL (0-125)
[2024-12-06 12:39] LABS: Troponin I 0.06 ng/ml (0.00-0.034)
--- NOTE | 2024-12-06 12:40 | PC.NURSE ---
ROUNDED ON PT, NO NEEDS AT THIS TIME. CALL LIGHT WITHIN REACH. AT BEDSIDE
--- NOTE | 2024-12-06 12:47 | PC.NURSE ---
ROUNDED ON THE PT. THE PT VOICES THAT SHE DOES NOT NEED ANYTHING AT THIS TIME. CALL LIGHT IS WITHIN REACH OF THE PT.
[2024-12-06 12:59] LABS: Procalcitonin 0.059 ng/mL (0.0-2.0)
[2024-12-06] MEDS: PHENOL THROAT SPRAY 177 ML BOTTLE MM (13:02)
--- NOTE | 2024-12-06 13:03 | XR_ITS ---
FINAL REPORT TECHNIQUE: Single view chest CLINICAL HISTORY: Dyspnea COMPARISON: 11/04/2023 FINDINGS: A single view of the chest was obtained. The heart and mediastinum are within normal limits. There is emphysema and evidence of old granulomatous disease. The lungs are otherwise clear. There is no pneumothorax. IMPRESSION: No acute cardiopulmonary process. Reviewed, Interpreted and Dictated by Naseem Price MD Transcribed by Jordyn Fried Authenticated and [facility]
--- NOTE | 2024-12-06 13:03 | PC.NURSE ---
PT MEDICATED PER EMAR, PT REQUESTS UPDATE ON POC, JUAN JOSÉ JAIME NOTIFIED
[2024-12-06 13:07] LABS: HIV Combo NEGATIVE (Negative)
--- NOTE | 2024-12-06 13:08 | PC.NURSE ---
XR AT BEDSIDE
--- NOTE | 2024-12-06 13:12 | PC.NURSE ---
PT REQUESTING PAIN MEDICATION AND SOMETHING FOR NAUSEA, JUAN JOSÉ JAIME NOTIFIED
[2024-12-06 13:14] LABS: Hepatitis C Ab Qual. W/ RFX NEGATIVE (Negative)
--- NOTE | 2024-12-06 13:15 | PC.NURSE ---
rounded on patient; she is requesting zofran and something for pain. MARCO ANTONIO Garrett aware. They spoke with LUIS FERNANDO Coon
[2024-12-06] MEDS: ACETAMINOPHEN 1,000MG/100ML VIAL 1000 MG IV (13:24)
[2024-12-06] MEDS: ONDANSETRON 4MG/2ML VIAL 4 MG IV (13:24)
[2024-12-06 13:41] LABS: Lactate Venous 1.3 mmol/L (0.4-2.0); VBG Base Excess 1.7 mmol/L (-2.4-2.3); VBG HCO3 26.1 mmol/L (23-30); VBG Oxygen Saturation 97.9 % (50-70); VBG PCO2 40.4 mmol/L (35-51); VBG PH 7.42 mmol/L (7.31-7.41); VBG PO2 100.5 mmol/L (28-40); VBG Total CO2 27.3 mmol/L (23-27)
--- NOTE | 2024-12-06 13:48 | PC.NURSE ---
JUAN JOSÉ JAIME SPEAKING WITH DR MINER FOR ADMISSION
--- NOTE | 2024-12-06 13:53 | PC.NURSE ---
Pt. sitting up in bed at this time. No needs at this time.Call light in reach
--- NOTE | 2024-12-06 14:20 | PC.NURSE ---
DR MINER AT BEDSIDE
--- NOTE | 2024-12-06 14:50 | EXP.HP ---
History of Present Illness *Admission Date: 12/06/24 *Reason for visit:: Short of breath *History of present illness: Ms. 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 Remains significantly symptomatic. Was recently started on morphine by her PCP for dyspnea and symptom management. History complicated by GERD, previous tobacco use disorder, COPD, CKD, HFpEF. On presentation to the ER, on baseline oxygen. Labs with elevated BNP of 4700. Patient feeling weak and is complaining of hurting all over. Has been taking morphine 2-3 times a day for symptom management with good response. Denies any chest pain today, no nausea, vomiting, diarrhea. Afebrile. Just does not feel well. Extensive discussion with patient in the ER, would like to consider hospice consult. Given her elevated BNP, decision made to admit for diuresis, hospice consult, management optimization. Chest imaging showed increased congestion in lower lobes. Patient alert and oriented x 4. Has been at bedside. Afebrile and hemodynamically stable [facility] Disclaimer: The information contained in this section may have been updated after the patient was seen, as this information can be updated by other users. Medical History Pre-op testing Atypical angina Diastolic dysfunction Dysphagia Stopped smoking with greater than 30 pack year history Multiple pulmonary nodules Eosinophilia Chronic hypoxemic respiratory failure Dyspnea on exertion Congestive heart failure Acute exacerbation of CHF (congestive heart failure) Coronary atherosclerosis of [place] coronary artery Acute systolic CHF (congestive heart failure) NSTEMI (non-ST elevated myocardial infarction) CKD (chronic kidney disease) Tobacco dependence Acute exacerbation of chronic obstructive airways disease Atypical chest pain Bradycardia Carotid artery stenosis HLD (hyperlipidemia) COPD (chronic obstructive pulmonary disease) Surgical History History of coronary artery stent placement History of hysterectomy History of colonoscopy History of esophagogastroduodenoscopy (EGD) History of lumpectomy No significant past surgical history Family History Other Cancer Family history of GERD Family history of arthritis Family history of hyperlipidemia Family history of hypertension Heart attack Social History Smoking Status: Former smoker tobacco type: cigarettes packs per day: 1 second hand exposure: No alcohol intake: never substance use type: denies use 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al status: retired Travel in the last 8 weeks: None housing: house marital status: 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al exposures/hazards: No caffeine: Yes Have you lived/traveled outside [place] in past 30 days?: No Contact w/someone who lives/traveled outside US past 30 days?: No Exposure to someone with infectious disease in past 14 days?: No Do you have a fever (greater than 100.4 F or 38 C)?: No Have you tested positive for COVID-19: No Exposed to someone with COVID-19 in past 14 days?: No Do you have a sore throat?: No Do you have a cough?: No Do you have any weakness?: No Are you experiencing any nausea/vomitting?: Yes Do you have any diarrhea?: No Are you experiencing any unusual bleeding?: No Do you have any muscle aches/pain?: No Do you have any abdominal pain?: No Are you experiencing loss of taste or smell?: No Other Medical History Have you received the Flu Vaccine for this season: No Have you received the Pneumonia Vaccine: Yes Review of Systems Review of Systems Review of systems (narrative): 14 point review of systems performed, pertinent positives and negatives as per HPI Meds Home Medications and Allergies Home Medications ?Medication ?Instructions ?Recorded ?Confirmed ?Type aspirin 81 mg tablet,delayed 81 mg PO HS 01/30/19 12/06/24 History release atorvastatin 40 mg tablet 40 mg PO HS 12/17/21 12/06/24 History cholecalciferol (vitamin D3) 25 25 mcg PO DAILY Supplement 04/25/22 12/06/24 History mcg (1,000 unit) capsule metoprolol succinate 25 mg 12.5 mg PO HS 04/25/22 12/06/24 History tablet,extended release 24 hr budesonide 0.5 mg/2 mL suspension 0.5 mg inhalation Q12H 04/10/23 12/06/24 History for nebulization formoterol fumarate 20 mcg/2 mL 2 ml inhalation BID 90 days #180 mL 02/09/24 12/06/24 Rx solution for nebulization (Perforomist) fluticasone fur. 200 mcg-umeclid 1 inh inhalation DAILY 09/30/24 12/06/24 History 62.5 mcg-vilant 25 mcg inhalat.powder (Trelegy Ellipta) azithromycin 250 mg tablet 250 mg PO MOWEFR 12/01/24 12/06/24 History clonazepam 0.5 mg tablet 0.5 mg PO DIRECTED 12/01/24 12/06/24 History fluoxetine 40 mg capsule 40 mg PO DAILY 12/01/24 12/06/24 History linaclotide 290 mcg capsule 290 mcg PO DAILY PRN Abdominal 12/01/24 12/06/24 History (Linzess) Discomfort metoclopramide HCl 10 mg tablet 10 mg PO BIDWMEAL #60 tabs 12/01/24 12/06/24 Rx morphine concentrate 10 mg/0.5 mL 10 mg PO TIDP PRN Shortness Of 12/01/24 12/06/24 History oral solution Breath albuterol sulfate 2.5 mg/3 mL 2.5 mg inhalation NEEDED PRN 12/06/24 12/06/24 History (0.083 %) solution for nebulization Breathing Problems esomeprazole magnesium 20 mg 20 mg PO BID 12/06/24 12/06/24 History capsule,delayed release magnesium 0 tab PO DAILY 12/06/24 12/06/24 History New Prescriptions to Start Prescriptions: Allergies Allergy/AdvReac Type Severity Reaction Status Date / Time No Known Allergies Allergy Verified 12/01/24 13:54 Exam Data for Last 24 hours Vital signs and Labs for Last 24 Hours: Temp Pulse Resp BP Pulse Ox O2 Del Method O2 Flow Rate 98.3 F 65 16 138/50 L 100 Room Air 3 12/06/24 11:28 12/06/24 14:31 12/06/24 14:31 12/06/24 14:31 12/06/24 14:31 12/06/24 14:31 12/06/24 11:38 Laboratory Results - last 24 hr 12/06/24 11:35: SARS-CoV-2 (PCR) Not detected, Influenza A Untype (PCR) Not detected, Influenza Type B (PCR) Not detected 12/06/24 11:50: WBC 12.0 H, RBC 3.85 L, Hgb 11.1 L, Hct 35.4 L, MCV 91.9, MCH 28.8, MCHC 31.4 L, RDW 13.2, Plt Count 215, MPV 11.3 H, Neut % (Auto) 85.2 H, Lymph % (Auto) 9.3 L, [place] % (Auto) 3.3, Eos % (Auto) 1.0, Baso % (Auto) 0.6, Neut # (Auto) 10.3 H, Lymph # (Auto) 1.1, [place] # (Auto) 0.4, Eos # (Auto) 0.1, Baso # (Auto) 0.1, D-Dimer 0.67 H, VBG pH 7.42 H, VBG pCO2 40.4, VBG pO2 100.5 H, VBG HCO3 26.1, VBG Total CO2 27.3 H, VBG O2 Saturation 97.9 H, VBG Base Excess 1.7, VBG Lactic Acid 1.3, Sodium 137, Potassium 4.3, Chloride 101, Carbon Dioxide 33 H, Anion Gap 7.3, BUN 15, Creatinine 0.90, Estimated Creat Clear 58, Estimated GFR 62, Est GFR ( Amer) 74, Glucose 109 H, Calcium 8.6, Magnesium 1.6, Total Bilirubin 0.6, AST 47 H, ALT 29, Alkaline Phosphatase 113, Troponin I 0.06 H, NT-Pro-B Natriuret Pep 4500 H, Total Protein 5.9 L, Albumin 3.8, Globulin 2.1, Albumin/Globulin Ratio 1.8, Procalcitonin 0.059, HCV Ab BRITTANY w/Rflx PCR Qn Negative, HIV Ag/Ab Combo Qual Negative I & O for Last 24 hours: Intake & Output 12/03/24 12/04/24 12/05/24 12/06/24 23:59 23:59 23:59 23:59 Weight 72.121 kg Constitutional Constitutional: mild distress, thin, chronically ill appearing and cooperative *Routine HEENT Exam Head: Present normocephalic Eye: Present EOMI and PERRL ENT: Present mucous membranes moist *Routine Neck Exam Neck: Present supple *Routine Respiratory Exam Respiratory: Present accessory muscle use, prolonged expiratory phase, wheezes and diminished air movement; Absent rhonchi or crackles *Routine Cardiovascular Exam Cardiovascular: Present RRR *Routine Abdominal Exam Abdominal: Present soft and normoactive bowel sounds; Absent tenderness *Routine Rectal Exam Rectal:: deferred *Routine Genitalia Exam Genitalia:: deferred *Routine Extremities Exam Extremities: Absent cyanosis, clubbing or edema *Routine Skin Exam Skin: Present warm; Absent rash *Routine Neurological Exam Neurological: Present alert, oriented X3 and moving all extremities; Absent altered mental status Assessment and Plan *Assessment and plan (1) Acute exacerbation of CHF (congestive heart failure): Status: Acute Qualifiers: Heart failure type: unspecified Qualified Code(s): I50.9 - Heart failure, unspecified Category: Medical Code(s): I50.9 - Heart failure, unspecified (2) Chronic hypoxemic respiratory failure: Status: Chronic Category: Medical Code(s): J96.11 - Chronic respiratory failure with hypoxia (3) COPD (chronic obstructive pulmonary disease): Status: Chronic Qualifiers: COPD type: unspecified COPD Qualified Code(s): J44.9 - Chronic obstructive pulmonary disease, unspecified Category: Medical Code(s): J44.9 - Chronic obstructive pulmonary disease, unspecified (4) Non-ST elevation [place] (NSTEMI): Status: Acute Category: Medical Code(s): I21.4 - Non-ST elevation (NSTEMI) myocardial infarction (5) Chronic GERD: Status: Acute Category: Medical Code(s): K21.9 - Gastro-esophageal reflux disease without esophagitis (6) Hypertension: Status: Chronic Qualifiers: Hypertension type: primary hypertension Qualified Code(s): I10 - Essential (primary) hypertension Category: Medical Code(s): I10 - Essential (primary) hypertension (7) CAD (coronary artery disease): Status: Chronic Qualifiers: Coronary Disease-Associated Artery/Lesion type: [place] artery [place] vs. transplanted heart: [place] heart Associated angina: with other forms of angina Qualified Code(s): I25.118 - Atherosclerotic heart disease of [place] coronary artery with other forms of angina pectoris Category: Medical Code(s): I25.10 - Atherosclerotic heart disease of [place] coronary artery without angina pectoris (8) CKD (chronic kidney disease): Status: Chronic Qualifiers: Chronic kidney disease stage: stage 3 (moderate) Chronic kidney disease stage 3 subtype: unspecified whether 3a or 3b Qualified Code(s): N18.30 - Chronic kidney disease, stage 3 unspecified Category: Medical Code(s): N18.9 - Chronic kidney disease, unspecified Plan Ms. Black is a 74-year-old female with history of COPD, chronic respiratory failure, on 3 L oxygen, HFpEF, GERD. Presented to the ER with persistent shortness of breath and achy all over. Workup in the ER concerning for CHF exacerbation with elevated BNP. Discussed case with ER physician, request admission for optimization of care and further goals of care discussion. I agreed to admit. Patient open to hospice. Consulted for them to come see the patient today. Problems addressed as follows: COPD Chronic hypoxemic respiratory failure -Continue oxygen supplementation as needed to maintain O2 saturation goal of 90 to 95%. Currently on 3 L -Continue DuoNebs every 6 hours along with Pulmicort every 12 scheduled -No need for antibiotics or steroids at this point of time as patient respiratory status at baseline with no evidence of COPD exacerbation. -Hospice consulted, evaluating patient this afternoon. -Initiate morphine 5 mg oral solution as needed every 6 hours for dyspnea and pain -Initiate Ativan 0.5 mg every 8 hours as needed for anxiety -Continue Trelegy 200 inhaler - White count slightly elevated at 12, hemoglobin at baseline 11. Suspect elevation due to recent steroid use. No acute signs of infection or exacerbation Kidney function normal with BUN 15, creatinine 0.9. Electrolytes stable with potassium 4.3, magnesium 1.6. HFpEF exacerbation CAD - BNP elevated at 4700. Bumex IV once on admission. Continue IV 1 mg daily - Continue aspirin 81 mg, Lipitor 40 mg nightly, metoprolol succinate 12 and half milligrams nightly - Slight bump in troponin at 0.6, elevated to 0.17. No timothy chest pain or ACS. Suspect demand ischemia due to strain and HFpEF exacerbation. In line with goals of care, cardiology not consulted as there is no plan for any intervention. Chronic conditions: Continue Prozac 40 mg daily Continue esomeprazole 20 mg twice daily Full code Lovenox 40 mg subcu daily Regular diet
--- NOTE | 2024-12-06 14:58 | PC.NURSE ---
Dr. Paris, agrees to admit. utility mechanic supervisor notified of admission.
--- NOTE | 2024-12-06 15:03 | PC.NURSE ---
Called Lab to check on the status of full respiratory panel. Lab states they will start running it now.Specimen was collect and sent at 1135, ordered at 1212.
[2024-12-06 15:05] LABS: Adenovirus,PCR Not Detected (NotDetected); Bordetella Pertussis Not Detected (NotDetected); Chlamydophila Pneumoniae, PCR Not Detected (NotDetected); Coronavirus 19, PCR Not Detected (NotDetected); Coronavirus 229E Not Detected (NotDetected); Coronavirus NL63 Not Detected (NotDetected); Coronavirus OC43 Not Detected (NotDetected); Coronovirus HKU1,PCR Not Detected (NotDetected); Human Metapneumovirus Not Detected (NotDetected); Influenza A, PCR Not Detected (NotDetected); Influenza AH1, 2009 Not Detected (NotDetected); Influenza AH1, PCR Not Detected (NotDetected); Influenza AH3,PCR Not Detected (NotDetected); Influenza B, PCR Not Detected (NotDetected); Mycoplasma Pneumoniae, PCR Not Detected (NotDetected); Parainfluenza 1, PCR Not Detected (NotDetected); Parainfluenza 2, PCR Not Detected (NotDetected); Parainfluenza 3, PCR Not Detected (NotDetected); Parainfluenza 4, PCR Not Detected (NotDetected); Respiratory Syncytial Virus Not Detected (NotDetected); Rhinovirus/Enterovirus Not Detected (NotDetected)
--- NOTE | 2024-12-06 15:11 | SW/DCPLANNER ---
Addendum entered by Martina Mae 12/07/24 08:27: Per Lesvia figueroa/ [facility] patient was evaluated at bedside by Hospice nurse yesterday and has everything set up to discharge home w/ Hospice once medically stable for discharge. Original Note: I received a Hospice consult for this patient. Patient is agreeable for information to be faxed to [facility]. Patient information has been faxed and Lesvia figueroa/ [facility] will arrange for a nurse to be at bedside today to discuss Hospice services. Per MD patient will be admitted overnight w/ planned discharge tomorrow pending no setbacks.
--- NOTE | 2024-12-06 15:15 | PC.NURSE ---
REPORT CALLED TO MARCO ANTONIO JOHNSON
--- NOTE | 2024-12-06 15:24 | PC.NURSE ---
ROUNDED ON THE PT. THE PT VOICES THAT SHE DOES NOT NEED ANYTHING AT THIS TIME. CALL LIGHT IS WITHIN REACH OF THE PT.
[2024-12-06 15:38] LABS: Troponin I 0.12 ng/ml (0.00-0.034)
--- NOTE | 2024-12-06 15:39 | PC.NURSE ---
arrived by w/c from ED
[2024-12-06] MEDS: BUMETANIDE 1MG/4ML VIAL 1 MG IV (15:58)
[2024-12-06] MEDS: MORPHINE 20MG/ML 1ML ORAL SOLUTION 5 MG PO ×2 (16:10→20:40)
[2024-12-06 18:59] LABS: Troponin I 0.17 ng/ml (0.00-0.034)
[2024-12-06] MEDS: ATORVASTATIN 40MG TABLET 40 MG PO (20:39)
[2024-12-06] MEDS: AZITHROMYCIN 250MG TABLET 250 MG PO (20:39)
[2024-12-06] MEDS: METOPROLOL SUCCINATE XL 25MG TABLET 12.5 MG PO (20:40)
[2024-12-06] MEDS: ASPIRIN EC 81MG TABLET 81 MG PO (20:48)
[2024-12-07] VITALS: BP 118/72; PULSE 70; RESP 17; TEMP 36.4; O2SAT 98
[2024-12-07 00:09] VITALS: PULSE 67; PULSE 79
[2024-12-07] MEDS: IPRATROPIUM/ALBUTEROL 3 ML NEB IH ×2 (00:09→06:11)
[2024-12-07 04:00] VITALS: BP 162/69; PULSE 65; RESP 18; TEMP 36.4; O2SAT 90; BMI 21.9
--- NOTE | 2024-12-07 04:05 | PC.NURSE ---
Addendum entered by Katelin Velásquez RN 12/07/24 04:36: Another administration of morphine PO/SL solution was given per MAR this morning for moderate pain. Original Note: Patient is alert and oriented x4. Patient was observed to have eyes closed, respirations even and unlabored on 3 L (baseline) of oxygen via nasal cannula, and no apparent distress throughout the majority of the night. Patient had complaints of generalized aches once this shift; she requested morphine PO/SL solution for comfort needs + pain/avoiding dyspnea. Patient was able to rest after receiving. Scheduled medications were administered per MAR as well. Diminished lung sounds were heard with auscultation; auscultation of her heart and bowels were within normal findings. Patient has been getting up with assistance to use the bedside commode for elimination needs; she ambulates fairly. She refused a snack at bedtime but fresh ice water was given. Vital signs stable. At this time, the patient is resting supine in bed without any further complaints. No acute changes noted thus far. Call light within reach.
[2024-12-07] MEDS: MORPHINE 20MG/ML 1ML ORAL SOLUTION 5 MG PO (04:25)
[2024-12-07 06:11] VITALS: PULSE 59; PULSE 60; O2SAT 94
[2024-12-07] MEDS: BUDESONIDE 0.5MG/2ML NEB 0.5 MG IH (06:11)
[2024-12-07 06:45] LABS: Basophils % 0.2 % (0.1-2.0); Hematocrit 31.8 % (37.0-47.0); Lymphocytes # 0.8 K/mm3 (0.7-4.5); Lymphocytes % 14.6 % (10-50); Mean Corpuscular HGB Conc 31.4 g/dL (31.8-35.4); Mean Corpuscular Hemoglobin 28.6 pg (27.0-31.2); Mean Corpuscular Volume 90.9 fl (81-99); Monocytes # 0.2 K/mm3 (0.1-1.0); Monocytes % 2.8 % (1.7-9.3); Neutrophils # 4.4 K/mm3 (1.8-7.8); Neutrophils % 81.8 % (37.0-80.0); Platelet Count 185 K/mm3 (142-424); Red Cell Distribution Width 13.2 % (11.5-17.5); White Blood Count 5.4 K/mm3 (4.8-10.8)
[2024-12-07 07:07] LABS: Albumin Level 3.4 g/dl (3.5-5.0); Chloride 96 mmol/L (98-107); Potassium 4.3 mmoL/L (3.5-5.1); Sodium 135 mmol/L (136-145)
[2024-12-07 07:10] LABS: Alanine Aminotransferase 25 U/L (12-78); Albumin/Globulin Ratio 1.7 (1.1-1.8); Alkaline Phosphatase 88 U/L (38-126); Anion Gap 7.3 mEq/L (5-15); Aspartate Amino Transferase 33 U/L (14-36); Bilirubin,Total 0.3 mg/dl (0.2-1.3); Blood Urea Nitrogen 20 mg/dl (7-17); Calcium 8.4 mg/dl (8.4-10.2); Carbon Dioxide 36 mmol/L (22.0-30.0); Creatinine Clearance Estimated 52 mL/min (50-200); Estimated Glomerular Filt Rate 49 ml/min (>60); GFR (African American) 59 ML/MIN (>60); Glucose 121 mg/dl (74-100); Magnesium 1.7 mg/dl (1.6-2.3); Total Protein,Serum 5.4 g/dl (6.3-8.2)
--- NOTE | 2024-12-07 07:17 | HMH.PHAINT1 ---
Pharmacy Intervention Comments: HOME MEDICATION LIST VERIFIED USING LIST FROM OUTPATIENT PHARMACY AND PT INTERVIEW
[2024-12-07 08:00] VITALS: BP 147/89; PULSE 72; RESP 22; TEMP 36.6; O2SAT 98
[2024-12-07] MEDS: BUMETANIDE 1 MG TABLET PO (08:29)
[2024-12-07] MEDS: FLUOXETINE 20MG CAPSULE 40 MG PO (08:30)
[2024-12-07] MEDS: ENOXAPARIN 40MG/0.4ML SYRINGE 40 MG SUBCUT (08:30)
[2024-12-07 09:00] LABS: 25-OH Vitamin D, Total 30.4 ng/mL (30-100)
[2024-12-07 09:32] LABS: Vitamin B12 738 pg/mL (239-931)
--- NOTE | 2024-12-07 09:49 | P.DS_ITS ---
General Admission date:: 12/06/24 HPI HPI HPI: Ms. 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 Remains significantly symptomatic. Was recently started on morphine by her PCP for dyspnea and symptom management. History complicated by GERD, previous tobacco use disorder, COPD, CKD, HFpEF. On presentation to the ER, on baseline oxygen. Labs with elevated BNP of 4700. Patient feeling weak and is complaining of hurting all over. Has been taking morphine 2-3 times a day for symptom management with good response. Denies any chest pain today, no nausea, vomiting, diarrhea. Afebrile. Just does not feel well. Extensive discussion with patient in the ER, would like to consider hospice consult. Given her elevated BNP, decision made to admit for diuresis, hospice consult, management optimization. Chest imaging showed increased congestion in lower lobes. Patient alert and oriented x 4. Has been at bedside. Afebrile and hemodynamically stable Hospital Course Hospital Course Hospital Course: Ms. Black is a 74-year-old female with history of COPD, chronic respiratory failure, on 3 L oxygen, HFpEF, GERD. Presented to the ER with persistent shortness of breath and achy all over. Workup in the ER concerning for CHF exacerbation with elevated BNP. Discussed case with ER physician, request admi ssion for optimization of care and further goals of care discussion. I agreed to admit. Patient open to hospice. Consulted for them to come see the patient today. Problems addressed as follows: #COPD #Chronic hypoxemic respiratory failure ? Unfortunately, patient has end-stage COPD. Has dyspnea on rest even on supplemental oxygen. Requiring 3 L nasal cannula. ? Patient is currently on optimal therapy for COPD, unfortunately continues to have symptomatic COPD. ? Treated with DuoNebs, Pulmicort during hospitalization. Did not require antibiotics or steroids as there was no exacerbation. ? Discussed extensively regarding hospice care, patient is agreeable. Hospice care services consulted, accepted patient to home hospice. ? Continue Trelegy 200, azithromycin 3 times weekly, DuoNebs as needed 4 times a day. #HFpEF exacerbation #CAD - BNP elevated at 4700 with volume overload. - Slight bump in troponin at 0.6, elevated to 0.17. No timothy chest pain or ACS. Suspect demand ischemia due to strain and HFpEF exacerbation. In line with goals of care, cardiology not consulted as there is no plan for any intervention. ? Clinically improved with IV Bumex diuresis. Discharged with Bumex 1 mg and spironolactone 25 mg daily. - Continue aspirin 81 mg, Lipitor 40 mg nightly, metoprolol succinate 12.5mg ni.ghtly Chronic conditions: #Anxiety/depression ? Continue Prozac 40 mg daily. #GERD ? Continue esomeprazole 20 mg twice daily. Total time spent on discharge: 32 minutes on chart review, counseling, documentation, and direct care with patient. Exam Data for Last 24 hours Vital signs and Labs for Last 24 Hours: Temp Pulse Resp BP Pulse Ox O2 Del Method O2 Flow Rate 97.8 F 72 22 147/89 H 98 Nasal Cannula 3 12/07/24 08:00 12/07/24 08:00 12/07/24 08:00 12/07/24 08:00 12/07/24 08:00 12/07/24 08:00 12/07/24 08:00 Laboratory Results - last 24 hr 12/06/24 11:35: Chlamy pneumoniae PCR Not detected, Adenovirus (PCR) Not detected, B. pertussis DNA (PCR) Not detected, Coronavirus OC43 (PCR) Not detected, Coronavirus HKU1 (PCR) Not detected, Coronavirus 229E (PCR) Not detected, SARS-CoV-2 (PCR) Not detected 12/06/24 11:35: SARS-CoV-2 (PCR) Not detected, Coronavirus NL63 (PCR) Not detected, Human Metapneumovir PCR Not detected, Influenza A (H1) PCR Not detec brigid, Influ A (H1N1/09) PCR Not detected, Influenza A (H3) PCR Not detected, Influenza Type A (PCR) Not detected, Influenza A Untype (PCR) Not detected, Influenza Type B (PCR) Not detected 12/06/24 11:35: Influenza Type B (PCR) Not detected, M. pneumoniae (PCR) Not detected, Parainfluenza 1 (PCR) Not detected, Parainfluenza 2 (PCR) Not detected, Parainfluenza 3 (PCR) Not detected, Parainfluenza 4 (PCR) Not detected, RSV (PCR) Not detected, Entero/Rhino (PCR) Not detected 12/06/24 11:50: WBC 12.0 H, RBC 3.85 L, Hgb 11.1 L, Hct 35.4 L, MCV 91.9, MCH 28.8, MCHC 31.4 L, RDW 13.2, Plt Count 215, MPV 11.3 H, Neut % (Auto) 85.2 H, Lymph % (Auto) 9.3 L, [place] % (Auto) 3.3, Eos % (Auto) 1.0, Baso % (Auto) 0.6, Neut # (Auto) 10.3 H, Lymph # (Auto) 1.1, [place] # (Auto) 0.4, Eos # (Auto) 0.1, Baso # (Auto) 0.1, D-Dimer 0.67 H, VBG pH 7.42 H, VBG pCO2 40.4, VBG pO2 100.5 H , VBG HCO3 26.1, VBG Total CO2 27.3 H, VBG O2 Saturation 97.9 H, VBG Base Excess 1.7, VBG Lactic Acid 1.3, Sodium 137, Potassium 4.3, Chloride 101, Carbon Dioxide 33 H, Anion Gap 7.3, BUN 15, Creatinine 0.90, Estimated Creat Clear 58, Estimated GFR 62, Est GFR ( Amer) 74, Glucose 109 H, Calcium 8.6, Magnesium 1.6, Total Bilirubin 0.6, AST 47 H, ALT 29, Alkaline Phosphatase 113, Troponin I 0.06 H, NT-Pro-B Natriuret Pep 4500 H, Total Protein 5.9 L, Albumin 3.8, Globulin 2.1, Albumin/Globulin Ratio 1.8, Procalcitonin 0.059, HCV Ab BRITTANY w/Rflx PCR Qn Negative, HIV Ag/Ab Combo Qual Negative 12/06/24 15:08: Troponin I 0.12 H 12/06/24 18:15: Troponin I 0.17 H 12/07/24 05:23: WBC 5.4 D, RBC 3.50 L, Hgb 10.0 L, Hct 31.8 L, MCV 90.9, MCH 28.6, MCHC 31.4 L, RDW 13.2, Plt Count 185, MPV 11.0 H, Neut % (Auto) 81.8 H, Lymph % (Auto) 14.6, [place] % (Auto) 2.8, Eos % (Auto) 0.0 L, Baso % (Auto) 0.2, Neut # (Auto) 4.4, Lymph # (Auto) 0.8, [place] # (Auto) 0.2, Eos # (Auto) 0.0, Baso # (Auto) 0.0, Sodium 135 L, Potassium 4.3, Chloride 96 L, Carbon Dioxide 36 H, Anion Gap 7.3, BUN 20 H D, Creatinine 1.10 H D, Estimated Creat Clear 52, Estimated GFR 49 L, Est GFR ( Amer) 59 D, Glucose 121 H, Calcium 8.4, Magnesium 1.7, Total Bilirubin 0.3, AST 33 D, ALT 25, Alkaline Phosphatase 88, Total Protein 5.4 L, Albumin 3.4 L D, Globulin 2.0, Albumin/Globulin Ratio 1.7, 25-OH Vitamin D Total 30.4 I & O for Last 24 hours: Intake & Output 12/04/24 12/05/24 12/06/24 12/07/24 23:59 23:59 23:59 23:59 Intake Total 240 / 360 360 / 360 Output Total 0 / 0 0 / 0 Balance 240 / 360 360 / 360 Weight 70.052 kg 71.033 kg Constitutional Constitutional: no acute distress *Routine HEENT Exam Head: Present normocephalic Eye: Present EOMI and PERRL ENT: Present mucous membranes moist *Routine Neck Exam Neck: Present supple; Absent lymphadenopathy *Routine Respiratory Exam Respiratory: Present CTA bilaterally *Routine Cardiovascular Exam Cardiovascular: Present RRR *Routine Abdominal Exam Abdominal: Present soft and normoactive bowel sounds; Absent tenderness *Routine Extremities Exam Extremities: Absent cyanosis, clubbing or edema *Routine Skin Exam Skin: Present warm; Absent rash *Routine Neurological Exam Neurological: Present alert Results Data Completed and Pending Labs on day of discharge: Labs from last 24 hours 12/07/24 12/06/24 12/06/24 05:23 18:15 15:08 WBC 5.4 D RBC 3.50 L Hgb 10.0 L Hct 31.8 L MCV 90.9 MCH 28.6 MCHC 31.4 L RDW 13.2 Plt Count 185 MPV 11.0 H Neut % (Auto) 81.8 H Lymph % (Auto) 14.6 [place] % (Auto) 2.8 Eos % (Auto) 0.0 L Baso % (Auto) 0.2 Neut # (Auto) 4.4 Lymph # (Auto) 0.8 [place] # (Auto) 0.2 Eos # (Auto) 0.0 Baso # (Auto) 0.0 D-Dimer VBG pH VBG pCO2 VBG pO2 VBG HCO3 VBG Total CO2 VBG O2 Saturation VBG Base Excess VBG Lactic Acid Sodium 135 L Potassium 4.3 Chloride 96 L Carbon Dioxide 36 H Anion Gap 7.3 BUN 20 H D Creatinine 1.10 H D Estimated Creat Clear 52 Estimated GFR 49 L Est GFR ( Amer) 59 D Glucose 121 H Calcium 8.4 Magnesium 1.7 Total Bilirubin 0.3 AST 33 D ALT 25 Alkaline Phosphatase 88 Troponin I 0.17 H 0.12 H NT-Pro-B Natriuret Pep Total Protein 5.4 L Albumin 3.4 L D Globulin 2.0 Albumin/Globulin Ratio 1.7 25-OH Vitamin D Total 30.4 Procalcitonin Chlamy pneumoniae PCR Adenovirus (PCR) B. pertussis DNA (PCR) Coronavirus OC43 (PCR) Coronavirus HKU1 (PCR) Coronavirus 229E (PCR) SARS-CoV-2 (PCR) Coronavirus NL63 (PCR) HCV Ab BRITTANY w/Rflx PCR Qn HIV Ag/Ab Combo Qual Human Metapneumovir PCR Influenza A (H1) PCR Influ A (H1N1/09) PCR Influenza A (H3) PCR Influenza Type A (PCR) Influenza A Untype (PCR) Influenza Type B (PCR) M. pneumoniae (PCR) Parainfluenza 1 (PCR) Parainfluenza 2 (PCR) Parainfluenza 3 (PCR) Parainfluenza 4 (PCR) RSV (PCR) Entero/Rhino (PCR) 12/06/24 12/06/24 12/06/24 11:50 11:35 11:35 WBC 12.0 H RBC 3.85 L Hgb 11.1 L Hct 35.4 L MCV 91.9 MCH 28.8 MCHC 31.4 L RDW 13.2 Plt Count 215 MPV 11.3 H Neut % (Auto) 85.2 H Lymph % (Auto) 9.3 L [place] % (Auto) 3.3 Eos % (Auto) 1.0 Baso % (Auto) 0.6 Neut # (Auto) 10.3 H Lymph # (Auto) 1.1 [place] # (Auto) 0.4 Eos # (Auto) 0.1 Baso # (Auto) 0.1 D-Dimer 0.67 H VBG pH 7.42 H VBG pCO2 40.4 VBG pO2 100.5 H VBG HCO3 26.1 VBG Total CO2 27.3 H VBG O2 Saturation 97.9 H VBG Base Excess 1.7 VBG Lactic Acid 1.3 Sodium 137 Potassium 4.3 Chloride 101 Carbon Dioxide 33 H Anion Gap 7.3 BUN 15 Creatinine 0.90 Estimated Creat Clear 58 Estimated GFR 62 Est GFR ( Amer) 74 Glucose 109 H Calcium 8.6 Magnesium 1.6 Total Bilirubin 0.6 AST 47 H ALT 29 Alkaline Phosphatase 113 Troponin I 0.06 H NT-Pro-B Natriuret Pep 4500 H Total Protein 5.9 L Albumin 3.8 Globulin 2.1 Albumin/Globulin Ratio 1.8 25-OH Vitamin D Total Procalcitonin 0.059 Chlamy pneumoniae PCR Adenovirus (PCR) B. pertussis DNA (PCR) Coronavirus OC43 (PCR) Coronavirus HKU1 (PCR) Coronavirus 229E (PCR) SARS-CoV-2 (PCR) Not detected Coronavirus NL63 (PCR) Not detected HCV Ab BRITTANY w/Rflx PCR Qn Negative HIV Ag/Ab Combo Qual Negative Human Metapneumovir PCR Not detected Influenza A (H1) PCR Not detected Influ A (H1N1/09) PCR Not detected Influenza A (H3) PCR Not detected Influenza Type A (PCR) Not detected Influenza A Untype (PCR) Not detected Influenza Type B (PCR) Not detected Not detected M. pneumoniae (PCR) Not detected Parainfluenza 1 (PCR) Not detected Parainfluenza 2 (PCR) Not detected Parainfluenza 3 (PCR) Not detected Parainfluenza 4 (PCR) Not detected RSV (PCR) Not detected Entero/Rhino (PCR) Not detected 12/06/24 11:35 WBC RBC Hgb Hct MCV MCH MCHC RDW Plt Count MPV Neut % (Auto) Lymph % (Auto) [place] % (Auto) Eos % (Auto) Baso % (Auto) Neut # (Auto) Lymph # (Auto) [place] # (Auto) Eos # (Auto) Baso # (Auto) D-Dimer VBG pH VBG pCO2 VBG pO2 VBG HCO3 VBG Total CO2 VBG O2 Saturation VBG Base Excess VBG Lactic Acid Sodium Potassium Chloride Carbon Dioxide Anion Gap BUN Creatinine Estimated Creat Clear Estimated GFR Est GFR ( Amer) Glucose Calcium Magnesium Total Bilirubin AST ALT Alkaline Phosphatase Troponin I NT-Pro-B Natriuret Pep Total Protein Albumin Globulin Albumin/Globulin Ratio 25-OH Vitamin D Total Procalcitonin Chlamy pneumoniae PCR Not detected Adenovirus (PCR) Not detected B. pertussis DNA (PCR) Not detected Coronavirus OC43 (PCR) Not detected Coronavirus HKU1 (PCR) Not detected Coronavirus 229E (PCR) Not detected SARS-CoV-2 (PCR) Not detected Coronavirus NL63 (PCR) HCV Ab BRITTANY w/Rflx PCR Qn HIV Ag/Ab Combo Qual Human Metapneumovir PCR Influenza A (H1) PCR Influ A (H1N1/) PCR Influenza A (H3) PCR Influenza Type A (PCR) Influenza A Untype (PCR) Influenza Type B (PCR) M. pneumoniae (PCR) Parainfluenza 1 (PCR) Parainfluenza 2 (PCR) Parainfluenza 3 (PCR) Parainfluenza 4 (PCR) RSV (PCR) Entero/Rhino (PCR) DS: Diagnosis Discharge Diagnosis (1) Acute exacerbation of CHF (congestive heart failure): Status: Acute Code(s): I50.9 - Heart failure, unspecified Qualifiers: Heart failure type: unspecified Qualified Code(s): I50.9 - Heart failure, unspecified (2) Chronic hypoxemic respiratory failure: Status: Chronic Code(s): J96.11 - Chronic respiratory failure with hypoxia (3) COPD (chronic obstructive pulmonary disease): Status: Chronic Code(s): J44.9 - Chronic obstructive pulmonary disease, unspecified Qualifiers: COPD type: unspecified COPD Qualified Code(s): J44.9 - Chronic obstructive pulmonary disease, unspecified (4) Non-ST elevation MT (NSTEMI): Status: Acute Code(s): I21.4 - Non-ST elevation (NSTEMI) myocardial infarction (5) Chronic GERD: Status: Acute Code(s): K21.9 - Gastro-esophageal reflux disease without esophagitis (6) Hypertension: Status: Chronic Code(s): I10 - Essential (primary) hypertension Qualifiers: Hypertension type: primary hypertension Qualified Code(s): I10 - Essential (primary) hypertension (7) CAD (coronary artery disease): Status: Chronic Code(s): I25.10 - Atherosclerotic heart disease of [place] coronary artery without angina pectoris Qualifiers: Associated angina: with other forms of angina Coronary Disease- Associated Artery/Lesion type: [place] artery [place] vs. transplanted heart: [place] heart Qualified Code(s): I25.118 - Atherosclerotic heart disease of [place] coronary artery with other forms of angina pectoris (8) CKD (chronic kidney disease): Status: Chronic Code(s): N18.9 - Chronic kidney disease, unspecified Qualifiers: Chronic kidney disease stage: stage 3 (moderate) Chronic kidney disease stage 3 subtype: unspecified whether 3a or 3b Qualified Code(s): N18.30 - Chronic kidney disease, stage 3 unspecified Meds Home Medications and Allergies Home Medications ?Medication ?Instructions ?Recorded ?Confirmed ?Type aspirin 81 mg tablet,delayed 81 mg PO HS 01/30/19 12/06/24 History release atorvastatin 40 mg tablet 40 mg PO HS 12/17/21 12/06/24 History cholecalciferol (vitamin D3) 25 25 mcg PO DAILY 04/25/22 12/06/24 History mcg (1,000 unit) capsule metoprolol succinate 25 mg 12.5 mg PO HS 04/25/22 12/06/24 History tablet,extended release 24 hr budesonide 0.5 mg/2 mL suspension 0.5 mg inhalation Q12H 04/10/23 12/06/24 History for nebulization formoterol fumarate 20 mcg/2 mL 2 ml inhalation BID 90 days #180 mL 02/09/24 12/06/24 Rx solution for nebulization (Perforomist) fluticasone fur. 200 mcg-umeclid 1 inh inhalation DAILY 09/30/24 12/06/24 History 62.5 mcg-vilant 25 mcg inhalat.powder (Trelegy Ellipta) azithromycin 250 mg tablet 250 mg PO MOWEFR 12/01/24 12/06/24 History clonazepam 0.5 mg tablet 0.5 mg PO DIRECTED 12/01/24 12/06/24 History fluoxetine 40 mg capsule 40 mg PO DAILY 12/01/24 12/06/24 History linaclotide 290 mcg capsule 290 mcg PO DAILY PRN Abdominal 12/01/24 12/06/24 History (Linzess) Discomfort metoclopramide HCl 10 mg tablet 10 mg PO BIDWMEAL #60 tabs 12/01/24 12/06/24 Rx morphine concentrate 10 mg/0.5 mL 10 mg PO TIDP PRN Shortness Of 12/01/24 12/06/24 History oral solution Breath albuterol sulfate 2.5 mg/3 mL 2.5 mg inhalation NEEDED PRN 12/06/24 12/06/24 History (0.083 %) solution for nebulization Breathing Problems esomeprazole magnesium 20 mg 20 mg PO BID 12/06/24 12/06/24 History capsule,delayed release magnesium 1 tab PO DAILY 12/06/24 12/07/24 History bumetanide 1 mg tablet 0.5 mg (1/2 x 1 mg) PO DAILY 30 12/07/24 Rx days #15 tabs spironolactone 25 mg tablet 12.5 mg (1/2 x 25 mg) PO DAILY 30 12/07/24 Rx days #15 tabs New Prescriptions to Start Prescriptions: Arun Piña spironolactone Arun Sloan Allergies Allergy/AdvReac Type Severity Reaction Status Date / Time No Known Allergies Allergy Verified 12/01/24 13:54 Discharge Plan Disposition Patient Disposition: Hospice - Home Condition: Fair Discharge Order Discharge Orders: Discharge Order (Routine); Ordered 12/07/24 Ordered By: Arun Sloan Follow up Plan Follow up with: Ephraim Lombardo MD [Primary Care Provider] - 12/09/24 11:15 am Prescriptions/Medication Reconciliation: New bumetanide 1 mg Tablet 0.5 mg PO DAILY 30 Days Qty: 15 0RF spironolactone 25 mg tablet 12.5 mg PO DAILY 30 Days Qty: 15 0RF Continued metoprolol succinate 25 mg tablet extended release 24 hr 12.5 mg PO HS fluoxetine 40 mg capsule 40 mg PO DAILY Patient Comments: TAKE 1 CAPSULE 1 TIME EACH DAY azithromycin 250 mg tablet 250 mg PO Patient Comments: TAKE 1 TABLET ON FRIDAY, FRIDAY AND FRIDAY. clonazepam 0.5 mg tablet 0.5 mg PO DIRECTED Patient Comments: TAKE 1 TABLET 3 TIMES EACH DAY Rx Instructions: Take 1 tablet in am and 2 at pm morphine concentrate 10 mg/0.5 mL solution 10 mg PO TIDP PRN (Reason: Shortness Of Breath) Linzess 290 mcg capsule 290 mcg PO DAILY PRN (Reason: Abdominal Discomfort) metoclopramide HCl 10 mg tablet 10 mg PO BIDWMEAL Qty: 60 4RF Rx Instructions: administer 30 minutes before meals cholecalciferol (vitamin D3) 25 mcg (1,000 unit) capsule 25 mcg PO DAILY formoterol fumarate [Perforomist] 20 mcg/2 mL solution for nebulization 2 ml inhalation BID 90 Days Qty: 180 3RF aspirin 81 MG tablet,delayed release (DR/EC) 81 mg PO HS Trelegy Ellipta 200-62.5-25 mcg Blister With Device 1 inh INHALATION DAILY esomeprazole magnesium 20 mg capsule,delayed release(DR/EC) 20 mg PO BID Patient Comments: TAKE 1 CAPSULE 2 TIMES EACH DAY albuterol sulfate 2.5 mg /3 mL (0.083 %) Solution For Nebulization 2.5 mg inhalation NEEDED PRN (Reason: Breathing Problems) magnesium Tablet 1 tab PO DAILY Rx Instructions: unknown dose atorvastatin 40 MG tablet 40 mg PO HS budesonide 0.5 mg/2 mL suspension for nebulization 0.5 mg inhalation Q12H Problem Reconciliation Problems Reviewed?: Yes Patient Discharge Instructions Patient Instructions: DI for Heart Attack, Chronic Obstructive Pulmonary Disease (Alternative Therapy), Chronic Obstructive Pulmonary Disease, Heart Failure, DI for Heart Failure, DI for Chronic Obstructive Pulmonary Disease, How to [place] With Heart Failure Print Language: Lao Providers Primary Care Provider: Ephraim Lombardo Admfrancheska Provider: Lio Paris Attending Provider: Lio Paris
[2024-12-07] MEDS: LORazepam 0.5MG TABLET 0.5 MG PO (10:06)
--- NOTE | 2024-12-09 10:48 | SW/DCPLANNER ---
Phoned patient x2. No answer. Left message. Redd Moran
== END 2024-12-07 10:39 | disposition hospice, home (50) ==
LOC: ER 15:01 → 2ND 15:17
PROVIDERS: Physician Assistant; Admitting Provider Internal Medicine Adolescent Medicine; Emergency Provider Student in an Organized Health Care Education/Training Program; PCP Internal Medicine Adolescent Medicine; Visit Provider Internal Medicine Adolescent Medicine
DX: J96.11 Chronic respiratory failure with hypoxia (principal); I13.0 Hypertensive heart and chronic kidney disease with heart failure and stage 1 through stage 4 chronic kidney disease, or unspecified chronic kidney disease; I50.33 Acute on chronic diastolic (congestive) heart failure; K21.9 Gastro-esophageal reflux disease without esophagitis; N18.30 Chronic kidney disease, stage 3 unspecified; E78.5 Hyperlipidemia, unspecified; J44.89 Other specified chronic obstructive pulmonary disease; R91.8 Other nonspecific abnormal finding of lung field; I25.10 Atherosclerotic heart disease of native coronary artery without angina pectoris; I65.29 Occlusion and stenosis of unspecified carotid artery; F41.9 Anxiety disorder, unspecified; F32.A Depression, unspecified; I25.2 Old myocardial infarction; Z79.82 Long term (current) use of aspirin; Z79.02 Long term (current) use of antithrombotics/antiplatelets; Z79.899 Other long term (current) drug therapy; Z87.891 Personal history of nicotine dependence; Z99.81 Dependence on supplemental oxygen; Z82.49 Family history of ischemic heart disease and other diseases of the circulatory system; Z83.438 Family history of other disorder of lipoprotein metabolism and other lipidemia; Z82.61 Family history of arthritis; Z80.9 Family history of malignant neoplasm, unspecified
CPT/HCPCS: 36415; 71045; 80053; 82306; 82607; 82803; 83735; 83880; 84145; 84484; 85025; 85378; 86803; 87389; 87633; 87636; 93005; 94640; 94761; 99285; G0378; J0131; J1100; J1650; J1939; J2405; J7620

== ENCOUNTER 2024-12-22 13:34 | Outpatient (CLI) | payer MEDICARE, SELFPAY ==
[2024-12-22 14:03] LABS: Basophils % 0.5 % (0.1-2.0); Eosinophils # 0.1 K/mm3 (0.0-0.4); Eosinophils % 1.2 % (0.1-12.0); Hematocrit 33.3 % (37.0-47.0); Hemoglobin 10.1 g/dL (12.2-16.2); Lymphocytes % 12.4 % (10-50); Mean Corpuscular HGB Conc 30.3 g/dL (31.8-35.4); Mean Corpuscular Hemoglobin 28.7 pg (27.0-31.2); Mean Corpuscular Volume 94.6 fl (81-99); Mean Platelet Volume 10.7 fl (7.4-10.4); Monocytes # 0.3 K/mm3 (0.1-1.0); Neutrophils # 6.2 K/mm3 (1.8-7.8); Neutrophils % 81.2 % (37.0-80.0); Platelet Count 252 K/mm3 (142-424); Red Blood Count 3.52 M/mm3 (4.20-5.40); Red Cell Distribution Width 13.1 % (11.5-17.5); White Blood Count 7.7 K/mm3 (4.8-10.8)
[2024-12-22 14:36] LABS: Albumin Level 3.6 g/dl (3.5-5.0); Chloride 94 mmol/L (98-107); Potassium 4.6 mmoL/L (3.5-5.1); Sodium 138 mmol/L (136-145)
[2024-12-22 14:39] LABS: Alanine Aminotransferase 23 U/L (12-78); Albumin/Globulin Ratio 1.9 (1.1-1.8); Alkaline Phosphatase 78 U/L (38-126); Anion Gap 9.6 mEq/L (5-15); Aspartate Amino Transferase 25 U/L (14-36); Bilirubin,Total 0.2 mg/dl (0.2-1.3); Blood Urea Nitrogen 23 mg/dl (7-17); Calcium 8.9 mg/dl (8.4-10.2); Carbon Dioxide 39 mmol/L (22.0-30.0); Estimated Glomerular Filt Rate 40 ml/min (>60); GFR (African American) 49 ML/MIN (>60); Globulin 1.9 g/dL (1.3-3.2); Glucose 84 mg/dl (74-100); Magnesium 1.7 mg/dl (1.6-2.3); Total Protein,Serum 5.5 g/dl (6.3-8.2)
== END 2024-12-22 23:59 | disposition home or self-care (01) ==
LOC: LAB.DROPOF 13:37
PROVIDERS: PCP Internal Medicine Adolescent Medicine; Visit Provider Internal Medicine Adolescent Medicine
DX: J44.9 Chronic obstructive pulmonary disease, unspecified (principal); E83.42 Hypomagnesemia
CPT/HCPCS: 80053; 83735; 85025

== ENCOUNTER 2024-12-30 14:46 | Emergency (ER) | payer OTHER, MEDICARE, SELFPAY ==
[2024-12-30] VITALS (7 sets, daily range): BP systolic 92–152; BP diastolic 35–83; PULSE 55–72; RESP 15–20; TEMP 36.6; O2SAT 92–96; BMI 22.1
--- NOTE | 2024-12-30 15:06 | XR_ITS ---
FINAL REPORT CLINICAL HISTORY: Shortness of breath and chest pain COMPARISON: 12/06/2024 FINDINGS: PA and lateral views of the chest were obtained. No acute pulmonary density is evident. Emphysematous changes are noted. There is evidence of old calcified granulomatous disease. There is no evidence of effusion or other pleural disease. The mediastinum has a normal appearance. The cardiac silhouette is unremarkable. IMPRESSION: No acute findings. Reviewed, Interpreted and Dictated by Naseem Price MD Transcribed by Lenore Freire Authenticated and [facility]
--- NOTE | 2024-12-30 15:15 | ECG_ITS ---
APPROVED REPORT Exam: Resting ECG HR:70 bpm ECG Measurements Heart Rate 70 AXES DC 164 P 87 QRSd 90 QRS 80 QT 455 T 258 QTc 475 Conclusion SINUS RHYTHM WITH OCCASIONAL SUPRAVENTRICULAR PREMATURE COMPLEXES ST DEVIATION AND MODERATE T-WAVE ABNORMALITY, CONSIDER ANTEROLATERAL ISCHEMIA [-0.1+ mV T-WAVE IN V3-V6] ST DEVIATION AND MODERATE T-WAVE ABNORMALITY, CONSIDER INFERIOR ISCHEMIA [-0.1+ mV T-WAVE IN II/aVF] ABNORMAL ECG UNCONFIRMED REPORT Electronically signed by : CONNIE FORD, 12/31/2024 05:39:35
--- NOTE | 2024-12-30 15:15 | SW/DCPLANNER ---
I have updated ED nursing staff (Tisha and Destinee) that patient is currently established w/ Hospice services. I have also updated Sydnie w/ Hospice that patient is currently in ED.
[2024-12-30 15:17] LABS: Basophils # 0.1 K/mm3 (0-0.2); Basophils % 0.5 % (0.1-2.0); Eosinophils # 0.4 K/mm3 (0.0-0.4); Eosinophils % 3.8 % (0.1-12.0); Hematocrit 35.2 % (37.0-47.0); Hemoglobin 10.6 g/dL (12.2-16.2); Lymphocytes # 2.5 K/mm3 (0.7-4.5); Lymphocytes % 26.4 % (10-50); Mean Corpuscular HGB Conc 30.1 g/dL (31.8-35.4); Mean Corpuscular Hemoglobin 28.3 pg (27.0-31.2); Mean Corpuscular Volume 93.9 fl (81-99); Mean Platelet Volume 10.7 fl (7.4-10.4); Monocytes # 1.1 K/mm3 (0.1-1.0); Neutrophils # 5.5 K/mm3 (1.8-7.8); Neutrophils % 57.5 % (37.0-80.0); Platelet Count 245 K/mm3 (142-424); Red Blood Count 3.75 M/mm3 (4.20-5.40); Red Cell Distribution Width 12.9 % (11.5-17.5); White Blood Count 9.5 K/mm3 (4.8-10.8)
--- NOTE | 2024-12-30 15:20 | PC.NURSE ---
pt left to get chest xray
[2024-12-30 15:23] LABS: Lactate Venous 1.6 mmol/L (0.4-2.0); VBG Base Excess 10.6 mmol/L (-2.4-2.3); VBG HCO3 36.5 mmol/L (23-30); VBG Oxygen Saturation 51.2 % (50-70); VBG PH 7.34 mmol/L (7.31-7.41); VBG PO2 28.8 mmol/L (28-40); VBG Total CO2 38.6 mmol/L (23-27)
--- NOTE | 2024-12-30 15:24 | PC.NURSE ---
pt back from xray and is present in room
[2024-12-30 15:36] LABS: Alanine Aminotransferase 20 U/L (12-78); Albumin Level 3.7 g/dl (3.5-5.0); Albumin/Globulin Ratio 1.7 (1.1-1.8); Alkaline Phosphatase 80 U/L (38-126); Aspartate Amino Transferase 28 U/L (14-36); Bilirubin,Total 0.6 mg/dl (0.2-1.3); Blood Urea Nitrogen 19 mg/dl (7-17); Calcium 8.9 mg/dl (8.4-10.2); Chloride 95 mmol/L (98-107); Creatinine Clearance Estimated 53 mL/min (50-200); GFR (African American) 59 ML/MIN (>60); Globulin 2.2 g/dL (1.3-3.2); Glucose 100 mg/dl (74-100); Sodium 137 mmol/L (136-145); Total Protein,Serum 5.9 g/dl (6.3-8.2)
--- NOTE | 2024-12-30 15:41 | HMH.EDCP ---
Discharge Plan Disposition Patient Disposition: Home, Self-Care Chief Complaint: Shortness of Breath/Dyspnea Prescriptions Prescriptions: No Action metoprolol succinate 25 mg tablet extended release 24 hr 12.5 mg PO HS fluoxetine 40 mg capsule 40 mg PO DAILY Patient Comments: TAKE 1 CAPSULE 1 TIME EACH DAY azithromycin 250 mg tablet 250 mg PO Patient Comments: TAKE 1 TABLET ON FRIDAY, FRIDAY AND FRIDAY. clonazepam 0.5 mg tablet 0.5 mg PO DIRECTED Patient Comments: TAKE 1 TABLET 3 TIMES EACH DAY Rx Instructions: Take 1 tablet in am and 2 at pm morphine concentrate 10 mg/0.5 mL solution 10 mg PO TIDP PRN (Reason: Shortness Of Breath) Linzess 290 mcg capsule 290 mcg PO DAILY PRN (Reason: Abdominal Discomfort) metoclopramide HCl 10 mg tablet 10 mg PO BIDWMEAL Qty: 60 4RF Rx Instructions: administer 30 minutes before meals cholecalciferol (vitamin D3) 25 mcg (1,000 unit) capsule 25 mcg PO DAILY formoterol fumarate [Perforomist] 20 mcg/2 mL solution for nebulization 2 ml inhalation BID 90 Days Qty: 180 3RF aspirin 81 MG tablet,delayed release (DR/EC) 81 mg PO HS Trelegy Ellipta 200-62.5-25 mcg Blister With Device 1 inh INHALATION DAILY esomeprazole magnesium 20 mg capsule,delayed release(DR/EC) 20 mg PO BID Patient Comments: TAKE 1 CAPSULE 2 TIMES EACH DAY albuterol sulfate 2.5 mg /3 mL (0.083 %) Solution For Nebulization 2.5 mg inhalation NEEDED PRN (Reason: Breathing Problems) magnesium Tablet 1 tab PO DAILY Rx Instructions: unknown dose bumetanide 1 mg Tablet 0.5 mg PO DAILY 30 Days Qty: 15 0RF spironolactone 25 mg tablet 12.5 mg PO DAILY 30 Days Qty: 15 0RF atorvastatin 40 MG tablet 40 mg PO HS budesonide 0.5 mg/2 mL suspension for nebulization 0.5 mg inhalation Q12H Referrals Follow up/Referrals: Ephraim Lombardo MD [Primary Care Provider] - See instructions Hernandez Up DO [Staff Physician] - See instructions Activity Restrictions/Add. Instructions Additional Instructions/Restrictions: Talk to your hospice care about home physical therapy for your right rotator cuff. If physical therapy does not help, talk to Dr. Up (information attached) about further imaging and care. Call your family doctor to establish care for this visit to the emergency department and schedule follow-up within 48 hours to ensure improvement. If you have any worsening of your condition or any other concerning signs or symptoms, return to the emergency department or your primary care doctor for further evaluation. Clinical Impressions Clinical Impression: Rotator cuff strain Qualifiers: Encounter type: initial encounter Laterality: right Qualified Code(s): S46.011A - Strain of muscle(s) and tendon(s) of the rotator cuff of right shoulder, initial encounter Print Language Print Language: Japanese Discharge ED Provider: Young Philippe HPI General Chief Complaint: Shortness of Breath/Dyspnea Stated Complaint: SOA Time Seen by Provider: 12/30/24 14:57 Mode of Arrival: EMS Source of Information: Patient and EMS Description of Symptoms (Recalled from ER Triage Doc. by RN): pt states she woke up at 0400 and felt increasingly SOA. pt has COPD and CHF and is SOA at baseline. However, she states this was much worse than normal. pt is on 3LNC at baseline and is a hospice pt. pt also reports R upper back pain that is constant, 5/10 and sharp. pt states the pain and SOA worsens with exertion. pt had 1 duo neb in route. History of Present Illness HPI narrative: Please note that above description of symptoms, in this electronic medical record under categorization of recalled from ER triage doctor by RN are reflective of an initial nursing assessment, however, is not reflective of my full history and physical exam that was personally taken and clarified. Consequentially, this preceding description of symptoms, which may include the patient's categorized chief complaint in the EMR, do not reflect my personal clinical impression, and the ultimate description of history of present illness and patient stated complaints should be deferred to this section of the note. Unless stated otherwise or congruent with this section of the note, additional signs, symptoms, or incongruence should be interpreted as inaccurate with my clinical impression. Related Data Home Medications ?Medication ?Instructions ?Recorded ?Confirmed aspirin 81 mg tablet,delayed 81 mg PO HS 01/30/19 12/06/24 release atorvastatin 40 mg tablet 40 mg PO HS 12/17/21 12/06/24 cholecalciferol (vitamin D3) 25 25 mcg PO DAILY 04/25/22 12/06/24 mcg (1,000 unit) capsule metoprolol succinate 25 mg 12.5 mg PO HS 04/25/22 12/06/24 tablet,extended release 24 hr budesonide 0.5 mg/2 mL suspension 0.5 mg inhalation Q12H 04/10/23 12/06/24 for nebulization fluticasone fur. 200 mcg-umeclid 1 inh inhalation DAILY 09/30/24 12/06/24 62.5 mcg-vilant 25 mcg inhalat.powder (Trelegy Ellipta) azithromycin 250 mg tablet 250 mg PO MOWEFR 12/01/24 12/06/24 clonazepam 0.5 mg tablet 0.5 mg PO DIRECTED 12/01/24 12/06/24 fluoxetine 40 mg capsule 40 mg PO DAILY 12/01/24 12/06/24 linaclotide 290 mcg capsule 290 mcg PO DAILY PRN Abdominal 12/01/24 12/06/24 (Linzess) Discomfort morphine concentrate 10 mg/0.5 mL 10 mg PO TIDP PRN Shortness Of 12/01/24 12/06/24 oral solution Breath albuterol sulfate 2.5 mg/3 mL 2.5 mg inhalation NEEDED PRN 12/06/24 12/06/24 (0.083 %) solution for nebulization Breathing Problems esomeprazole magnesium 20 mg 20 mg PO BID 12/06/24 12/06/24 capsule,delayed release magnesium 1 tab PO DAILY 12/06/24 12/07/24 Previous Rx's ?Medication ?Instructions ?Recorded formoterol fumarate 20 mcg/2 mL 2 ml inhalation BID 90 days #180 mL 02/09/24 solution for nebulization (Perforomist) metoclopramide HCl 10 mg tablet 10 mg PO BIDWMEAL #60 tabs 12/01/24 bumetanide 1 mg tablet 0.5 mg (1/2 x 1 mg) PO DAILY 30 12/07/24 days #15 tabs spironolactone 25 mg tablet 12.5 mg (1/2 x 25 mg) PO DAILY 30 12/07/24 days #15 tabs Allergies Allergy/AdvReac Type Severity Reaction Status Date / Time No Known Allergies Allergy Verified 12/30/24 15:32 PFSH [facility] Disclaimer: The information contained in this section may have been updated after the patient was seen, as this information can be updated by other users. Medical History Pre-op testing Atypical angina Diastolic dysfunction Dysphagia Stopped smoking with greater than 30 pack year history Multiple pulmonary nodules Eosinophilia Chronic hypoxemic respiratory failure Dyspnea on exertion Congestive heart failure Acute exacerbation of CHF (congestive heart failure) Coronary atherosclerosis of lime coronary artery Acute systolic CHF (congestive heart failure) NSTEMI (non-ST elevated myocardial infarction) CKD (chronic kidney disease) Tobacco dependence Acute exacerbation of chronic obstructive airways disease Atypical chest pain Bradycardia Carotid artery stenosis HLD (hyperlipidemia) COPD (chronic obstructive pulmonary disease) Surgical History History of coronary artery stent placement History of hysterectomy History of colonoscopy History of esophagogastroduodenoscopy (EGD) History of lumpectomy No significant past surgical history Family History Other Cancer Family history of GERD Family history of arthritis Family history of hyperlipidemia Family history of hypertension Heart attack Social History Smoking Status: Former smoker tobacco type: cigarettes packs per day: 1 second hand exposure: No alcohol intake: never substance use type: denies use 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al status: retired Travel in the last 8 weeks: None housing: house marital status: 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al exposures/hazards: No caffeine: Yes Have you lived/traveled outside US in past 30 days?: No Contact w/someone who lives/traveled outside US past 30 days?: No Exposure to someone with infectious disease in past 14 days?: No Do you have a fever (greater than 100.4 F or 38 C)?: No Have you tested positive for COVID-19: No Exposed to someone with COVID-19 in past 14 days?: No Do you have a sore throat?: No Do you have a cough?: No Do you have any weakness?: No Do you have any diarrhea?: No Are you experiencing any unusual bleeding?: No Do you have any muscle aches/pain?: No Do you have any abdominal pain?: No Are you experiencing loss of taste or smell?: No Other Medical History Have you received the Flu Vaccine for this season: No Have you received the Pneumonia Vaccine: No ROS Obtained: Yes All systems reviewed & no additional complaints except as documented Physical Exam General General appearance: alert and in no apparent distress Neck Neck exam: Present trachea midline Chest Chest inspection: Present normal inspection and symmetric chest wall rise Respiratory Respiratory exam: Present other (Diminished breath sounds diffusely, no focal breath sounds); Absent respiratory distress, wheezes, stridor, accessory muscle use or prolonged expiratory phase Cardiovascular Cardiovascular exam: Present regular rate, normal rhythm and other (Pulses equal and symmetric in upper and lower extremities) Extremities Exam Extremities exam: Absent edema Neurological Exam Neurological exam: Present alert, oriented X3 and CN II-XII intact Skin Skin exam: Present warm and dry; Absent cyanosis, diaphoresis or pallor HEART Score HEART Score HEART Score assessment performed?: Yes History (anamnesis): Slightly suspicious ECG: Normal Age: >65 years Risk factors: 3 or more risk factors Troponin: </= normal limit HEART Score: 4 Critical Care Critical Care Time Critical Care Time: No Medical Decision Making Medical Records Medical records reviewed: Yes I reviewed the patient's medical records. Noble Inquiry Pt receiving controlled substance: No Noble was queried for this patient: No Vital Signs Vital Signs: 12/30/24 14:49 12/30/24 15:00 12/30/24 15:31 Temperature 97.9 F Temperature Source Oral Pulse Rate 70 67 Pulse Rate [Left] 72 Respiratory Rate 20 20 20 Blood Pressure 122/63 152/66 H Blood Pressure [Right Arm] 114/66 Blood Pressure Mean [Right Arm] 82 Blood Pressure Source [Right Arm] Automatic Cuff Blood Pressure Position [Right Arm] Sitting 02 Sat by Pulse Oximetry 94 L 93 L 92 L Oxygen Delivery Method Nasal Cannula Nasal Cannula Nasal Cannula Oxygen Flow Rate (LPM) 3 12/30/24 16:00 12/30/24 16:31 Temperature Temperature Source Pulse Rate 64 55 L Pulse Rate [Left] Respiratory Rate 15 17 Blood Pressure 145/83 H 92/35 L Blood Pressure [Right Arm] Blood Pressure Mean [Right Arm] Blood Pressure Source [Right Arm] Blood Pressure Position [Right Arm] 02 Sat by Pulse Oximetry 96 96 Oxygen Delivery Method Nasal Cannula Nasal Cannula Oxygen Flow Rate (LPM) Lab Data Labs: Lab Results 12/30/24 14:35: WBC 9.5, RBC 3.75 L, Hgb 10.6 L, Hct 35.2 L, MCV 93.9, MCH 28.3, MCHC 30.1 L, RDW 12.9, Plt Count 245, MPV 10.7 H, Neut % (Auto) 57.5, Lymph % (Auto) 26.4, Candler % (Auto) 11.0 H, Eos % (Auto) 3.8, Baso % (Auto) 0.5, Neut # (Auto) 5.5, Lymph # (Auto) 2.5, Candler # (Auto) 1.1 H, Eos # (Auto) 0.4, Baso # (Auto) 0.1, PT 10.4, INR 0.94, APTT 23.4, Sodium 137, Potassium 4.3, Chloride 95 L, Carbon Dioxide 37 H, Anion Gap 9.3, BUN 19 H, Creatinine 1.10 H, Estimated Creat Clear 53, Estimated GFR 59, Est GFR ( Amer) 59, Glucose 100, Calcium 8.9, Total Bilirubin 0.6, AST 28, ALT 20, Alkaline Phosphatase 80, Troponin I 0.02, NT-Pro-B Natriuret Pep 3120 H, Total Protein 5.9 L, Albumin 3.7, Globulin 2.2, Albumin/Globulin Ratio 1.7, Procalcitonin 0.052 12/30/24 15:07: VBG pH 7.34, VBG pCO2 70.0 H, VBG pO2 28.8, VBG HCO3 36.5 H, VBG Total CO2 38.6 H, VBG O2 Saturation 51.2, VBG Base Excess 10.6 H, VBG Lactic Acid 1.6 12/30/24 14:35 12/30/24 14:35 Response Orders (Tests/Meds): ED MEDICATIONS Discontinued Medications Generic Name Dose Route Start Last Admin Trade Name Freq PRN Reason Stop Dose Admin Acetaminophen 1,000 mg 12/30/24 15:49 12/30/24 15:55 Acetaminophen 1,000mg/100ml Vial IV 12/30/24 15:50 1,000 mg ONCE ONE Administration Ketorolac Tromethamine 15 mg 12/30/24 15:49 12/30/24 15:55 Ketorolac 30mg/Ml Vial IV 12/30/24 15:50 15 mg ONCE ONE Administration ORDERS Category Date Time Status CXR 2 view (NOT portable) [XR chest 2V] Stat Exams 12/30/24 15:06 Taken Complete Blood Count Auto Diff Stat Lab 12/30/24 14:35 Completed Comprehensive Metabolic Panel Stat Lab 12/30/24 14:35 Completed NT Pro Brain Natriuretic Pep. Stat Lab 12/30/24 14:35 Completed PT INR [Prothrombin Time INR] Stat Lab 12/30/24 14:35 Completed PTT [Activated Partial Thrombo Time] Stat Lab 12/30/24 14:35 Completed Procalcitonin Stat Lab 12/30/24 14:35 Completed Troponin I Q3H Lab 12/30/24 18:15 Ordered Troponin I Q3H Lab 12/30/24 21:15 Ordered Troponin I Stat Lab 12/30/24 14:35 Completed Venous Blood Gas Stat RT 12/30/24 15:07 Completed MDM Narrative Medical Decision Narrative: This is a 74-year-old female history of hypertension, hyperlipidemia, COPD on 3 L nasal cannula, CHF, CAD status post stenting, current hospice status presenting with right-sided shoulder pain. Patient states right-sided shoulder pain started getting worse today, 12/30. States that she stood up to go to the bathroom, started having pain posterior right shoulder after that. States that the pain in her right shoulder is mild to moderate in intensity, made worse with movements. Has not taken anything and noticed that it makes it better. She does state that she has been taking most of her medications, but has not been taking the bumetanide she was discharged on because she did not want to. She still has cough that is productive of light yellow sputum, this has been going on, no lower extremity edema, no obvious weight gain, no fevers or chills, nausea or vomiting or any other symptoms. History was obtained via conversation with patient and family. On arrival, patient hemodynamically stable, alert, oriented x4, appropriate, GCS 15, moving all extremities spontaneously, pupils equal and reactive to light. Full physical exam performed and significant for chronically ill-appearing. No acute distress. Speaking in full sentences, she is on her home 3 L nasal cannula. Lungs are diminished diffusely, no focal breath sounds anteriorly or posteriorly. Cardiac exam without murmurs gallops or rubs. No lower extremity edema. Pulses equal and symmetric in upper and lower extremities. Grossly neurologically intact. Regarding shoulder, patient has no superficial tenderness about the scapula, however with application of deep pressure, patient states that she starts feeling pain. No tenderness at supraspinatus or infraspinatus, but patient does have pain with compression of scapula and primarily tender with internal rotation of the right upper extremity, some pain with external rotation. Differential includes subscapularis injury, intercostal muscle strain, other rotator cuff injury, other MSK, pneumothorax, pneumonia, ACS, KS, among others. Patient was given Toradol and acetaminophen for symptomatic management and correction of underlying abnormalities. Patient placed on continuous cardiac monitoring and continuous pulse ox with initial blood pressure 114/66, heart rate 72, saturation 94% on 3 L nasal cannula. Independent interpretation of EKG shows sinus rhythm about 70 bpm with NJ interval 164, QRS 90, QTc 475. Patient does have T wave inversions in anterior leads, lateral leads and inferior leads with no reciprocal elevation. Normal axis. Workup independently interpreted and significant for nonactionable CBC or chemistry. Patient's VBG with chronic respiratory alkalosis with metabolic compensation normal pH. Patient's BNP downtrending, troponin negative. Procalcitonin negative. On independent interpretation of imaging, patient's chest x-ray with improving dependent edema and congestion. See radiology read for full review of final results. Heart score 4. On reevaluation, patient states she is feeling a lot better after anti-inflammatories. Given patient presentation, workup, history, this most likely represents acute rotator cuff strain. Recommend she follow-up with her hospice care about home physical therapy, she voiced her understanding. Close return precautions were discussed. Because patient at baseline without signs or symptoms of clinical decompensation, deemed appropriate for discharge. Results were relayed to patient who voiced understanding and were agreeable to outpatient management and follow up. I discussed my clinical impression with patient and answered all questions. At this time, the evidence for any other entities in the differential is insufficient to warrant any further testing or ED observation. This was explained as well. Advisory was given that persistent or worsening symptoms require further evaluation. I confirmed the understanding of this discussion. Gas Maker disclaimer Much of this encounter note is an electronic cephalometric analyst spoken language to printed text. Electronic cephalometric analyst of the spoken language may permit errors. Although I have reviewed the note, some errors may still exist.
[2024-12-30 15:45] LABS: Anion Gap 9.3 mEq/L (5-15); Carbon Dioxide 37 mmol/L (22.0-30.0); Potassium 4.3 mmoL/L (3.5-5.1)
[2024-12-30 15:48] LABS: NT Pro Brain Natriuretic Pep. 3120 pg/mL (0-125); Troponin I 0.02 ng/ml (0.00-0.034)
[2024-12-30 15:53] LABS: Procalcitonin 0.052 ng/mL (0.0-2.0)
[2024-12-30] MEDS: KETOROLAC 30MG/ML VIAL 15 MG IV (15:55)
[2024-12-30] MEDS: ACETAMINOPHEN 1,000MG/100ML VIAL 1000 MG IV (15:55)
[2024-12-30 16:02] LABS: Estimated Glomerular Filt Rate 59 ml/min (>60)
[2024-12-30 16:10] LABS: Activated Partial Thrombo Time 23.4 seconds (22.5-28.5); INR 0.94 (0.9-1.1); Prothrombin Time 10.4 seconds (9.2-12.1)
--- NOTE | 2024-12-30 17:26 | PC.NURSE ---
recieved fax from care navigators about pt placed paperwork in pts chart
== END 2024-12-30 17:41 | disposition home or self-care (01) ==
PROVIDERS: Emergency Provider Emergency Medicine; PCP Internal Medicine Adolescent Medicine
DX: S46.011A Strain of muscle(s) and tendon(s) of the rotator cuff of right shoulder, initial encounter (principal); X50.0XXA Overexertion from strenuous movement or load, initial encounter
CPT/HCPCS: 71046; 80053; 82803; 83880; 84145; 84484; 85025; 85610; 85730; 93005; 96374; 96375; 99284; J0131; J1885

== ENCOUNTER 2025-01-06 13:52 | Outpatient (CLI) | payer MEDICARE, SELFPAY ==
--- NOTE | 2025-01-06 13:56 | XR_ITS ---
FINAL REPORT CLINICAL HISTORY: rt shoulder pain COMPARISON: None FINDINGS: RIGHT SHOULDER 2 views demonstrate no acute fracture or dislocation. The visualized joint spaces are normally aligned. The soft tissues are unremarkable. There is a large calcified granuloma in the right upper lobe. IMPRESSION: No acute bony abnormality. Reviewed, Interpreted and Dictated by Lopez Amaya MD Transcribed by Jennifer Fleming Authenticated and [facility]
== END 2025-01-06 23:59 | disposition home or self-care (01) ==
LOC: RAD 13:54
PROVIDERS: PCP Internal Medicine Adolescent Medicine; Visit Provider Physician Assistant Surgical
DX: M25.511 Pain in right shoulder (principal); S46.011A Strain of muscle(s) and tendon(s) of the rotator cuff of right shoulder, initial encounter
CPT/HCPCS: 73030

== ENCOUNTER 2025-03-18 12:38 | Outpatient (CLI) | payer MEDICARE, SELFPAY ==
--- OUTSIDE RECORDS SUMMARY | 2025-03-18 12:41 | XMS_ITS | Continuity of Care Document ---
Author Organization [facility] Phone Care Team Providers Care Bus Dispatcher [employer] Name Role Phone LEONARD MARTINEZ Primary Attending [phone] LEONARD MARTINEZ Admitting LEONARD MARTINEZ Unavailable DECLINED, PCP Primary Care Unavailable RESULTS Patient: SOMMER LAU Date of : [birth year] LABORATORY RESULTS ORDER 100: UA AND MICRO/CULT IF INDICATED (LOINC: 25329-4) ORDER DATE: March 17, 2025 6:43:00 PM UTC Specimen Source: URINE Specimen Type: Urine specime n PERFORMING LAB: [facility] [id number] Result Comment: Final Result Date: March 17, 2025 6:57:00 PM UTC (TECH: HC) LOINC TEST FLAG RESULT REFERENCE RANGE UPDA BERTRAND BY 5778-6 Color of Urine N yellow YELLOW February 252024 6:57:00 PM UTC (TECH: HC) 5767-9 Appearance of Urine N SL.HAZY CLEAR March 17, 2025 6:57:00 PM UTC (TECH: HC) 5792-7 Glucose [Mass/volume ] in Urine by Test strip N NORM NORMAL March 17 025 6:57:00 PM UTC (TECH: HC) 43854-4 Bilirubin.total [Mass/volume] in Urine by Automated test strip N NEGATIVE NEGATIVE March 17, 2025 6:57:00 PM UTC (TECH: HC) 5797-6 Ketones [Mass/volume ] in Urine by Test strip N NEGATIVE NEGATIVE March 17 025 6:57:00 PM UTC (TECH: HC) 2965-2 Specific gravity of Urine N 1.020 1.005 - 1.035 March 17, 2025 6:57:00 PM UTC (TECH: HC) 44505-1 Erythrocytes [#/volume] in Urine by Automated test strip N NEGATIVE NEGATIVE March 17 6:57:00 PM UTC ([employer]ot[employer]) 14707-1 pH of Urine by Automated test strip N 6.00 5.0 - 7.5 March 17 6:57:00 PM UTC ([facility]) 61398-3 Protein [Presence] i n Urine by Test strip N 15 (TRACE) mg/dL NEGATIVE March 17 6:57:00 PM UTC ([employer]) 57443-0 Urobilinogen [Mass/volume] in Urine by Automated test strip N NORM NORMAL March 17, 2025 6:57:00 PM UTC ([facility]) 85569-8 Nitrate [Presence] i n Urine N NEGATIVE NEGATIVE March 17, 2025 6:57:00 PM UTC ([employer]) 72671-5 Leukocytes [#/volume ] in Urine by Test strip N TRACE (25) /mcL NEGATIVE March 17, 025 6:57:00 PM UTC ([facility]) 80795-5 Other elements in Urine sediment N CUL ORD W/UA March 17, 2025 6:57:00 PM UTC ([facility]) 14179-9 Microscopic observation [Identifier] in Urine sediment by Light microscopy N NO March 17, 2025 6:57:00 PM UTC ([facility]) LABORATORY NARRATIVE RESULTS Information is not available RADIOLOGY RESULTS Information is not available PATHOLOGY NARRATIVE RESULTS Information is not available MICROBIOLOGY RESULTS No Micro Labs/Results Exist for Patient BLOOD ADMIN RESULTS Information is not available TREATMENT PLAN DISCHARGE MEDICATIONS Status RXNORM Medication Dose Route Frequency Dates Comments U pdated By Patient discharge medication information is not available. PATIENT OPEN ORDERS Code System Description Frequency Occurrences Priority Start Date Ordering Physician Updated By 630-4 LOINC Bacteria identified in Urine by Culture ONE TIME 0 Routine March 17, 2025 6:43:00 PM [place] MICHELLE VALLE MD [id number] on March 17, 2025 6:43:00 PM [place] SCHEDULED PROCEDURES Code System Description Status Scheduled Date Upd ated By Patient scheduled procedure information is not available. MEDICATIONS HOME MEDICATIONS Status RXNORM NDC Medication Dose Route Frequency Dates Comments Reported By Updated By Drug Treatment Unknown DISCHARGE MEDICATIONS Status RXNORM NDC Medication Dose Route Frequency Dates Comments Physician Updated By No Discharge Medication Info rmation Available INPATIENT MEDICATIONS Status RXNORM NDC Medication Dose Route Frequency Rat e Quantity Dates Comments Physician Updated By No Inpatient Medication Info rmation Available SOCIAL HISTORY SOCIAL HISTORY SNOMED-CT Social History Element Description Effective Dates Offered Cessation Comment UpdatedBy [id number] Smoking Status Unknown If Ever Smoked SOCIAL HISTORY - Gender Sex: Female SOCIAL HISTORY - Status : status i nformation is not available Intention in Next Year: intention information is not available SOCIAL HISTORY - Sexual Behavior Sexual Orientation Gender Identity SNOMED-CT Description SNO MED -CT Description Activity Level No of Partners Partner Type UpdatedBy Information is not available HEALTH CONCERNS Problems Concern Status Health Concern problem infor mation not available. Smoking Status Status Years Used Consumed packs p er day Health Concern smoking histo ry information not available. Family History Concern Status Health Concern family histor y information not available. ENCOUNTERS ENCOUNTER INFORMATION Reason for Visit URINE BURNING Admission March 17, 2025 6:42:[address] [id number] Discharge March 17, 2025 7:42:00 PM [facility] DISC HARGED TO HOME OR SELF CARE ENCOUNTER DIAGNOSES Notes information is not rafael ilable. Code System Diagnosis Onset Date Diagnosis information is not available. ABSTRACT DIAGNOSES Code System Diagnosis Updated By Abstract Diagnosis informati on is not available. CARE TEAM Care Bus Dispatcher [employer] Role LEONARD MARTINEZ Primary Attending LEONARD MARTINEZ Admitting LEONARD MARTINEZ Referring PCP DECLINED Primary Care CARE TEAM CARE chief engineering division Role on Team Status Start Date End Date Update d By DECLINED PCP PCP normal March 17, 2025 4:00:00 AM [facility] March 17, 2025 7:42:00 PM [facility] [id number] on March 18, 2025 10:04:45 AM [facility] MICHELLE VALLE MD Referring normal March 17 4:00:00 AM [facility] March 17, 2025 7:42:00 PM [facility] [id number] on March 18, 2025 10:04:45 AM [facility] MICHELLE VALLE MD Attending normal March 17 4:00:00 AM [facility] March 17, 2025 7:42:00 PM [facility] [id number] on March 18, 2025 10:04:45 AM [facility] MICHELLE VALLE MD Admitting normal March 17 4:00:00 AM [facility] March 17, 2025 7:42:00 PM [facility] [id number] on March 18, 2025 10:04:45 AM [facility]
[2025-03-18 13:25] LABS: Alanine Aminotransferase 15 U/L (12-78); Albumin Level 3.2 g/dl (3.5-5.0); Albumin/Globulin Ratio 1.7 (1.1-1.8); Alkaline Phosphatase 64 U/L (38-126); Anion Gap 6.3 mEq/L (5-15); Aspartate Amino Transferase 28 U/L (14-36); Bilirubin,Total 0.6 mg/dl (0.2-1.3); Blood Urea Nitrogen 20 mg/dl (7-17); Calcium 8.4 mg/dl (8.4-10.2); Carbon Dioxide 33 mmol/L (22.0-30.0); Chloride 102 mmol/L (98-107); Estimated Glomerular Filt Rate 62 ml/min (>60); GFR (African American) 74 ML/MIN (>60); Globulin 1.9 g/dL (1.3-3.2); Glucose 93 mg/dl (74-100); Potassium 4.3 mmoL/L (3.5-5.1); Sodium 137 mmol/L (136-145); Total Protein,Serum 5.1 g/dl (6.3-8.2)
== END 2025-03-18 23:59 | disposition home or self-care (01) ==
LOC: LAB 12:39
PROVIDERS: PCP Internal Medicine Adolescent Medicine; Visit Provider Internal Medicine Adolescent Medicine
DX: I11.0 Hypertensive heart disease with heart failure (principal); Z87.891 Personal history of nicotine dependence
CPT/HCPCS: 80053

== ENCOUNTER 2025-06-15 15:04 | Emergency (ER) | payer OTHER, MEDICARE, SELFPAY ==
--- OUTSIDE RECORDS SUMMARY | 2025-04-21 07:30 | XMS_ITS ---
Author Organization [facility] D JOSE Address [address] [facility] [address] [place] [address] Care Team Providers Care Construction Representative Name Role Phone Ephraim Lombardo Primary Care Provider Allergies No Known Allergies REASON FOR VISIT 4 week f/u, S.O.A, body aches Medications Medication SIG (Take, Route, Frequency, Duration) Notes Start Date End Date Status Acyclovir 800 MG 1 tab(s) orally 3 times a day; Duration: 7 days prn 04/21/2024 Active OXYGEN SUPPLY TUBING *Please rev iew for potential replacement for e-prescription and drug interaction check* 08/02/2024 Active Morphine Sulfate (Concentrate) 20 MG/ML 0.5 mL orally three times daily; Duration: 30 days 12/10/2024 Active Ipratropium-Albuterol 0.5-2.5 (3) MG/3ML 3 ml by nebulizer tid; Duration: 30 day(s) prn 03/16/2019 Active Cholecalciferol 25 MCG 1 TAB(S) ORALLY ONCE A DAY *Please review and pick correct strength-formulat ion from Anchantoan options. If intended option is not shown, discontinue and re-order from Quick Search* Active Aspirin 81 MG 1 tab(s) orally once a day; Duration: 30 day(s) Active Cimetidine 200 MG 1 tab(s) orally 3 times a day Active Nitroglycerin 0.4 MG 1 tab(s) sublingually every 5 minutes; Duration: 30 days 01/08/2022 Active OXYGEN 2 LITERS DIRECTED DAILY DX: COPD *Plea review for potential replacement for e-prescription and drug interaction check* 09/18/2021 Active predniSONE 10 MG 1-2 tabs orally daily; Duration: 30 days As needed Active Atorvastatin Calcium 40 MG 1 tab(s) orally once a day; Duration: 90 days Active clonazePAM 0.5 MG 1 tab(s) orally twice a day; Duration: 30 days 11/07/2024 Active Magnesium 400MG 1 TABLET ONCE A DAY *Please revi ew and pick correct strength-formulat ion from [employer] options. If intended option is not shown, discontinue and re-order from Quick Search* Active levoFLOXacin 500 MG 1 tablet Orally Once a day; Duration: 10 days 05/02/2025 Active NexIUM 40 MG 1 cap(s) orally twice a day; Duration: 90 days Active Budesonide 0.5 MG/2ML 2 ml by nebulizer 2 times a day; Duration: 30 day(s) prn 03/05/2022 Active Metoclopramide HCl 5 MG 1 tab(s) orally twice a day 30 mins before meals; Duration: 30 days 11/18/2023 Active Senna 8.6 MG 1 tab(s) orally once a day (at bedtime) prn Active Biotin 44017 MCG 1 TAB(S) ORALLY ONCE A DAY *Please review and pick correct strength-formulat ion from [employer] options. If intended option is not shown, discontinue and re-order from Quick Search* Active Azithromycin 250 MG 1 tab oral on MON , Wed, Fri Active IBEROGAST SOFTGELS TWICE A DAY *Please revie w for potential replacement for e-prescription and drug interaction check* Active Spironolactone 25 MG 1/2 tab orally once a day Active Social History Tobacco Use: Social History Observation Description Date Details (start date - stop date) Former Smoker NA - NA Smoking: Question Answer Notes Are you a: former smoker How long has it been since you last smoked? 1-3 months Vital Signs Temperature 97.9 degrees Fahrenheit 04/21/20 25 Blood pressure systolic 118 mm Hg 04/21/20 25 Blood pressure diastolic 68 mm Hg 025 Heart Rate 74 /min 04/21/2025 Height 68 in 04/21/2025 Weight 151 lbs 04/21/2025 BMI 22.96 kg/m2 04/21/2025 95% on 4 L Encounters Encounter Location Date Provider Diagnosis [address] [address] 04/21/2025 Ephraim Lombardo COPD exacerbation J44.1 and Current mild episode of major depressive disorder without prior episode F32.0 Assessments Encounter Date Diagnosis (ICD Code) Assessment Notes Treatment Notes Treatment Clinical Notes Section Notes 04/21/2025 COPD exacerbation (ICD-10 - J44.1) Not currently in exacerbation. However, high risk of developing 1. She really does not want to feel sick for the wedding. Will start levofloxacin 8 days before as directed. Will do prednisone 10 daily and then ramp up to 20 the week before the wedding. She understands his instructions. 04/21/2025 Current mild episode of major depressive disorder without prior episode (ICD-10 - F32.0) Patient has been on fluoxetine in the past, we weaned off because she was doing well. She has this at home and have recommended that she restart at night. She is sleeping okay with clonazepam. She also uses melatonin. We discussed techniques to communicate with her son regarding some of the issues that they have been having. Plan Of Treatment Medication Medication Name Sig Start Date Stop Date Notes predniSONE 10 MG 1-2 tabs orally waldemar y; Duration: 30 days levoFLOXacin 500 MG 1 tablet Orally Once a day; Duration: 10 days 05/02/2025 Treatment Notes Assessment Notes COPD exacerbation Not currently in exacerbation. However, high risk of developing 1. She really does not want to feel sick for the wedding. Will start levofloxacin 8 days before as directed. Will do prednisone 10 daily and then ramp up to 20 the week before the wedding. She understands his instructions. Current mild episode of shin r depressive disorder without prior episode Patient has been on fluoxetine in the past, we weaned off because she was doing well. She has this at home and have recommended that she restart at night. She is sleeping okay with clonazepam. She also uses melatonin. We discussed techniques to communicate with her son regarding some of the issues that they have been having. Next Appt Details Follow Up: prn, Reason: Progress Notes * Shayy BLACK LDOB:1950 (74 yo F)Acc No.[id number]:04/21/2025 Progress Notes Patient: Shayy [place] Provider: Natanael Lombardo MD :1950 A ge:74 Y S ex:Female Date:04/21/2025 Address:[address] [place] [address], [place], [id number] Subjective: * Chief Complaints: * 1 . 4 week f/u. 2. S.O.A, body aches. * HPI: g en: Shayy presents for follow-up. She feels poorly. She is very stressed out about an upcoming wedding of her granddaughter and some family dynamic issues. We had a long talk about this. See notes below. She was recently on Levaquin and steroid burst through hospice because of COPD exacerbation. She felt better on this and thinks she needs several 100 steroids to get through this wedding. . 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 * Surgical History: c holecystectomy 1999, Hysterectomy 1987, cataract surgery 2005, cardiac cath x 6, 4 stents . * Hospitalization/Major Diagno stic Procedure: r espiratory 09/2018, cardiac 07/2019, chest pain 01/2021, [facility]- S.O.A , H - weakness and left hemiplegia with negative MRI 10/2023. * Family History: F ather: . M other: . P aternal Grand Father: . P aternal Grand Mother: . M aternal Grand Father: . M aternal Grand Mother: .?Children: alive. 2 brother(s) , 2 sister(s) . 1 son(s) . . HTN. * Social History: S moking: yes A re you a: f ormer smoker, H ow long has it been since you last smoked? 1 -3 months. R ecreational drug use: no. Exercise: no. Home smoke detector use: yes. Caffeine: yes, frequency:coffee and tea daily. Living Will: No. Alcohol: socially, Type: , Frequency: ,Years: , Determination:. Sexually active: yes. Travel outside [place]: no. Occupation: Retired. * Medications: T aking IBEROGAST SOFTGELS TWICE A DAY , Notes to Pharmacist: *Please review for potential replacement for e-prescription and drug interaction check*, Taking Azithromycin 250 MG Tablet 1 tab oral on MON , Wed, Fri , Taking Spironolactone 25 MG Tablet 1/2 tab orally once a day , Taking Senna 8.6 MG Tablet 1 tab(s) orally once a day (at bedtime) , Notes to Pharmacist: prn, Taking Biotin 95545 MCG CAPSULE 1 TAB(S) ORALLY ONCE A DAY , Notes to Pharmacist: *Please review and pick correct strength-formulation from An[employer] options. If intended option is not shown, discontinue and re-order from Quick Search*, Taking predniSONE 10 MG Tablet 1 tab(s) orally M, W, F , Taking Metoclopramide HCl 5 MG Tablet 1 tab(s) orally twice a day 30 mins before meals , Taking Budesonide 0.5 MG/2ML Suspension 2 ml by nebulizer 2 times a day , Notes to Pharmacist: prn, Taking NexIUM 40 MG Capsule Delayed Release 1 cap(s) orally twice a day , Taking clonazePAM 0.5 MG Tablet 1 tab(s) orally twice a day , Taking Atorvastatin Calcium 40 MG Tablet 1 tab(s) orally once a day , Taking Magnesium 400MG 1 TABLET ONCE A DAY , Notes to Pharmacist: *Please review and pick correct strength-formulation from An[employer] options. If intended option is not shown, discontinue and re-order from Quick Search*, Taking Cholecalciferol 25 MCG TABLET 1 TAB(S) ORALLY ONCE A DAY , Notes to Pharmacist: *Please review and pick correct strength-formulation from An[employer] options. If intended option is not shown, discontinue and re-order from Quick Search*, Taking Cimetidine 200 MG Tablet 1 tab(s) orally 3 times a day , Taking Aspirin 81 MG Tablet Delayed Release 1 tab(s) orally once a day , Taking OXYGEN 2 LITERS NASAL CANNULA DIRECTED DAILY , Notes to Pharmacist: DX: COPD *Please review for potential replacement for e-prescription and drug interaction check*, Taking Nitroglycerin 0.4 MG Tablet Sublingual 1 tab(s) sublingually every 5 minutes , Taking OXYGEN SUPPLY TUBING , Notes to Pharmacist: *Please review for potential replacement for e-prescription and drug interaction check*, Taking Ipratropium-Albuterol 0.5-2.5 (3) MG/3ML Solution 3 ml by nebulizer tid , Notes to Pharmacist: prn, Taking Morphine Sulfate (Concentrate) 20 MG/ML Solution 0.5 mL orally three times daily , Taking Acyclovir 800 MG Tablet 1 tab(s) orally 3 times a day , Notes to Pharmacist: prn, Discontinued levoFLOXacin 500 MG Tablet 1 tablet Orally Once a day , Medication List reviewed and reconciled with the patient * Allergies: N .K.D.A. Objective: * Vitals: N urse: dw, Pain: 10, Temp: 97.9, RR: 20, HR: 74, BP: 118/68, Ht: 68, Wt: 151, BMI:22.96. 95% on 4 L. * Examination: G eneral Examination: T earful but talkative, we had a very nice talk about eating through this challenging situation with her son, and his relationships with the rest the family. Lungs have rhonchorous sounds, no edema, weak but nonfocal deficits. Heart rate regular. Assessment: * Assessment: 1. C OPD exacerbation - J44.1 (Primary) 2 . C urrent mild episode of major depressive disorder without prior episode - F32.0 Plan: * Treatment: 2. C urrent mild episode of major depressive disorder without prior episode Notes: Patient has been on fluoxetine in the past, we weaned off because she was doing well. She has this at home and have recommended that she restart at night. She is sleeping okay with clonazepam. She also uses melatonin. We discussed techniques to communicate with her son regarding some of the issues that they have been having. * Follow Up: p rn * * Sign off status: Completed true * Provider: Natanael Lombardo MD Date: 0 04/21/2025 Generated for Ramírez mak/Marlena/Carlitting on: 06/15/2025 03:14 PM EDT History and Physical Notes * HPI (History of Present Illness) Category Sub-Category Detail Notes Category Not es gen Lucas presents for follow-up. She feels poorly. She is very stressed out about an upcoming wedding of her granddaughter and some family dynamic issues. We had a long talk about this. See notes below. She was recently on Levaquin and steroid burst through hospice because of COPD exacerbation. She felt better on this and thinks she needs several 100 steroids to get through this wedding. Examination Category Sub-Category Detail Notes Category Not es General Examination Tearful but talkative, we had a very nice talk about eating through this challenging situation with her son, and his relationships with the rest the family. Lungs have rhonchorous sounds, no edema, weak but nonfocal deficits. Heart rate regular.
--- OUTSIDE RECORDS SUMMARY | 2025-05-05 07:15 | XMS_ITS ---
Author Organization [facility] D JOSE Address [address] [facility] [address] [place] [address] Care Team Providers Care Collar Baster Jumpbasting Name Role Phone Ephraim Lombardo Primary Care Provider [phone] Allergies No Known Allergies REASON FOR VISIT med ck Medications Medication SIG (Take, Route, Frequency, Duration) Notes Start Date End Date Status Metoclopramide HCl 5 MG 1 tab(s) orally twice a day 30 mins before meals; Duration: 30 days 11/18/2023 Active Biotin 72895 MCG 1 TAB(S) ORALLY ONCE A DAY *Please review and pick correct strength-formulat ion from [employer] options. If intended option is not shown, discontinue and re-order from Quick Search* Active Senna 8.6 MG 1 tab(s) orally once a day (at bedtime) prn Active Spironolactone 25 MG 1/2 tab orally once a day Active Azithromycin 250 MG 1 tab oral on MON , Wed, Fri Active predniSONE 10 MG 1-2 tabs orally daily; Duration: 30 days As needed Active levoFLOXacin 500 MG 1 tablet Orally Once a day; Duration: 10 days 05/02/2025 Active Acyclovir 800 MG 1 tab(s) orally 3 times a day; Duration: 7 days prn 04/21/2024 Active Morphine Sulfate (Concentrate) 20 MG/ML 0.5 mL orally three times daily; Duration: 30 days 12/10/2024 Active IBEROGAST SOFTGELS TWICE A DAY *Please revie w for potential replacement for e-prescription and drug interaction check* Active Ipratropium-Albuterol 0.5-2.5 (3) MG/3ML 3 ml by nebulizer tid; Duration: 30 day(s) prn 03/16/2019 Active OXYGEN SUPPLY TUBING *Please rev iew for potential replacement for e-prescription and drug interaction check* 08/02/2024 Active Nitroglycerin 0.4 MG 1 tab(s) sublingually every 5 minutes; Duration: 30 days 01/08/2022 Active OXYGEN 2 LITERS DIRECTED DAILY DX: COPD *Plea se review for potential replacement for e-prescription and drug interaction check* 09/18/2021 Active Aspirin 81 MG 1 tab(s) orally once a day; Duration: 30 day(s) Active Magnesium 400MG 1 TABLET ONCE A DAY *Please revi ew and pick correct strength-formulat ion from [employer] options. If intended option is not shown, discontinue and re-order from Quick Search* Active Atorvastatin Calcium 40 MG 1 tab(s) orally once a day; Duration: 90 days Active clonazePAM 0.5 MG 1 tab(s) orally twice a day; Duration: 30 days 11/07/2024 Active Cimetidine 200 MG 1 tab(s) orally 3 times a day Active Cholecalciferol 25 MCG 1 TAB(S) ORALLY ONCE A DAY *Please review and pick correct strength-formulat ion from [employer] options. If intended option is not shown, discontinue and re-order from Quick Search* Active Budesonide 0.5 MG/2ML 2 ml by nebulizer 2 times a day; Duration: 30 day(s) prn 03/05/2022 Active NexIUM 40 MG 1 cap(s) orally twice a day; Duration: 90 days Active Social History Tobacco Use: Social History Observation Description Date Details (start date - stop date) Former Smoker NA - NA Smoking: Question Answer Notes Are you a: former smoker How long has it been since you last smoked? 1-3 months Vital Signs Temperature 98.2 degrees Fahrenheit 05/05/20 25 Blood pressure systolic 110 mm Hg 05/05/20 25 Blood pressure diastolic 72 mm Hg 025 Heart Rate 68 /min 05/05/2025 Height 68 in 05/05/2025 Weight 155 lbs 05/05/2025 BMI 23.57 kg/m2 05/05/2025 Encounters Encounter Location Date Provider Diagnosis [facility] [address] [facility] [address] [place] [address] 05/05/2025 Ephraim Lombardo End stage COPD J44.9 and Recurrent major depressive disorder, in partial remission F33.41 Assessments Encounter Date Diagnosis (ICD Code) Assessment Notes Treatment Notes Treatment Clinical Notes Section Notes 05/05/2025 End stage COPD (ICD-10 - J44.9) Overall seems to be improved since last visit. No changes in plan at this point. Continue prednisone, antibiotics are there for her. Continues to follow with hospice. They have been a good support for 05/05/2025 Recurrent major depressive disorder, in partial remission (ICD-10 - F33.41) Overall doing well on fluoxetine. No changes in plan Plan Of Treatment Treatment Notes Assessment Notes End stage COPD Overall seems to be improved since last visit. No changes in plan at this point. Continue prednisone, antibiotics are there for her. Continues to follow with hospice. They have been a good support for Recurrent major depressive d isorder, in partial remission Overall doing well on fluoxetine. No changes in plan Next Appt Details Follow Up: prn, Reason: Progress Notes * Shayy BLACK LDOB:1950 (74 yo F)Acc No.[id number]:05/05/2025 Progress Notes Patient: Shayy [place] Provider: Natanael Lombardo MD :1950 A ge:74 Y S ex:Female Date:05/05/2025 Address:[address] [place] [address], [place], [id number] Subjective: * Chief Complaints: * 1 . Med ck. * HPI: g en: Here to follow-up for COPD. Overall feels pretty good, is getting better adjusted to the wedding ceremony coming up next week. Family relationship seems pretty good at this point. Has been taking a bit higher dose of steroids and feels good. Is ready to start antibiotics next week. * Medical History: D epression, IBS, atherosclerosis/CAD [...] espiratory 09/2018, cardiac 07/2019, chest pain 01/2021, [facility]- [facility] , [facility] - weakness and left hemiplegia with negative [...] , Notes to Pharmacist: prn, Taking Biotin 71150 MCG CAPSULE 1 TAB(S) ORALLY ONCE A DAY , Notes to Pharmacist: *Please review and pick correct strength-formulation from [employer] options. If intended option is not shown, discontinue and re-order from Quick Search*, Taking Metoclopramide HCl 5 MG Tablet 1 [...] *Please review and pick correct strength-formulation from [employer] options. If intended option is not shown, discontinue and re-order from Quick Search*, Taking Cholecalciferol 25 MCG TABLET 1 TAB(S) ORALLY ONCE A DAY , Notes to Pharmacist: *Please review and pick correct strength-formulation from [employer] options. If intended option is not shown, [...] day , Notes to Pharmacist: prn, Taking levoFLOXacin 500 MG Tablet 1 tablet Orally Once a day , Taking predniSONE 10 MG Tablet 1-2 tabs orally daily As needed, Medication List reviewed and reconciled with the patient * Allergies: N .K.D.A. Objective: * Vitals: N urse: dw, Pain: 0, Temp: 98.2, RR: 20, HR: 68, BP: 110/72, Ht: 68, Wt: 155, BMI:23.57. * Examination: G eneral Examination: General F rail, chronically ill thin elderly gal in a mobility scooter on O2.. Heart: R egular Rate and Rhythm, no murmur, rubs or gallops. Lungs: L CTAB, No wheezes, crackles or rhonchi, Poor air movement. Neurologic Exam: n o focal signs,, normal sensation, strength, tone and reflexes,, Alert and oriented x 3. Skin: w ithout acute rashes. Psych N ormal Mood/Affect. Assessment: * Assessment: 1. E nd stage COPD - J44.9 (Primary) 2 . R ecurrent major depressive disorder, in partial remission - F33.41 Plan: * Treatment: 2. R ecurrent major depressive disorder, in partial remission Notes: Overall doing well on fluoxetine. No changes in plan * Follow Up: p rn * * Sign off status: Completed true * Provider: Natanael Lombardo MD Date: 05/05/2025 Generated for Printi ng/Marlena/eTransmitting on: 0 06/15/2025 03:14 PM EDT History and Physical Notes * HPI (History of Present Illness) Category Sub-Category Detail Notes Category Not es gen Here to follow-up for COPD. Overall feels pretty good, is getting better adjusted to the wedding ceremony coming up next week. Family relationship seems pretty good at this point. Has been taking a bit higher dose of steroids and feels good. Is ready to start antibiotics next week Examination Category Sub-Category Detail Notes Category Not es General Examination Heart: Regular Rate and Rhythm, no murmur, rubs or gallops Lungs: LCTAB, No wheezes, c rackles or rhonchi, Poor air movement Skin: without acute rashes Neurologic Exam: no focal signs,, nor mal sensation, strength, tone and reflexes,, Alert and oriented x 3 General Frail, chronically i ll thin elderly gal in a mobility scooter on O2. Psych Normal Mood/Affect
--- OUTSIDE RECORDS SUMMARY | 2025-05-26 07:30 | XMS_ITS ---
Author Organization [facility] D JOSE Address [address] [place] [address] Care Team Providers Care Postal Sorting Officer Name Role Phone Ephraim Lombardo Primary Care Provider REASON FOR VISIT AWV & ck up Encounters Encounter Location Date Provider Diagnosis [facility] [address] [address] 05/26/2025 Ephraim Lombardo Plan Of Treatment No Information Progress Notes * Shayy BLACK LDOB:1950 (74 yo F)Acc No.[id number]:05/26/2025 Progress notes Patient: Shayy [place] Provider: Natanael Lombardo MD :1950 A ge:74 Y S ex:Female Date:05/26/2025 Address:[facility] [address] [facility] [id number] Subjective: * Chief Complaints: * 1 . AWV & ck up. * Medical History: Objective: * Vitals: Assessment: Plan: * Treatment: * * Electronic signature of Hong Lombardo MD FAAP on 06/15/2025 at 03:15 PM EDT Sign off status: Pending * Provider: Natanael Lombardo MD Date: 0 05/26/2025 Generated for Printi ng/Faxing/eTransmitting on: 0 06/15/2025 03:15 PM EDT
[2025-06-15] VITALS (9 sets, daily range): BP systolic 132–229; BP diastolic 49–102; PULSE 72–89; RESP 25–26; TEMP 36.8–37.2; O2SAT 93–99; BMI 22.8
--- NOTE | 2025-06-15 15:07 | ED_ITS ---
<Statement entered by Ciaran Tsai MD - 06/16/25 15:55> I was consulted by the LINDA, and we discussed the complexity of the problems being addressed. I approved the treatment and management plan for this patient's care in the emergency department, thus performing a substantive portion of the medical decision making. Ciaran Tsai MD, DEE, FACEP <Statement entered by Camilla Sandoval DO - 06/15/25 19:34> I was consulted by the LIDNA, and we discussed the complexity of problems being addressed. I approve the treatment and management plan for this patient's care in the emergency department, thus performing a substantial portion of the medical decision making. Camilla Sandoval DO Discharge Plan Disposition Patient Disposition: Home, Self-Care Condition: Good Prescriptions Prescriptions: New prednisone 20 mg tablet 20 mg PO BID 14 Days Qty: 28 0RF No Action metoprolol succinate 25 mg tablet extended release 24 hr 12.5 mg PO HS fluoxetine 40 mg capsule 40 mg PO DAILY Patient Comments: TAKE 1 CAPSULE 1 TIME EACH DAY azithromycin 250 mg tablet 250 mg PO Patient Comments: TAKE 1 TABLET ON FRIDAY, FRIDAY AND FRIDAY. clonazepam 0.5 mg tablet 0.5 mg PO DIRECTED Patient Comments: TAKE 1 TABLET 3 TIMES EACH DAY Rx Instructions: Take 1 tablet in am and 2 at pm morphine concentrate 10 mg/0.5 mL solution 10 mg PO TIDP PRN (Reason: Shortness Of Breath) Linzess 290 mcg capsule 290 mcg PO DAILY PRN (Reason: Abdominal Discomfort) metoclopramide HCl 10 mg tablet 10 mg PO BIDWMEAL Qty: 60 4RF Rx Instructions: administer 30 minutes before meals cholecalciferol (vitamin D3) 25 mcg (1,000 unit) capsule 25 mcg PO DAILY formoterol fumarate [Perforomist] 20 mcg/2 mL solution for nebulization 2 ml inhalation BID 90 Days Qty: 180 3RF budesonide 0.5 mg/2 mL suspension for nebulization 0.5 mg inhalation Q12H Qty: 180 3RF albuterol sulfate 2.5 mg /3 mL (0.083 %) solution for nebulization 2.5 mg inhalation Q4H PRN (Reason: shortness of breath or wheezing) Qty: 75 2RF aspirin 81 MG tablet,delayed release (DR/EC) 81 mg PO HS Trelegy Ellipta 200-62.5-25 mcg Blister With Device 1 inh INHALATION DAILY esomeprazole magnesium 20 mg capsule,delayed release(DR/EC) 20 mg PO BID Patient Comments: TAKE 1 CAPSULE 2 TIMES EACH DAY albuterol sulfate 2.5 mg /3 mL (0.083 %) Solution For Nebulization 2.5 mg inhalation NEEDED PRN (Reason: Breathing Problems) magnesium Tablet 1 tab PO DAILY Rx Instructions: unknown dose bumetanide 1 mg Tablet 0.5 mg PO DAILY 30 Days Qty: 15 0RF spironolactone 25 mg tablet 12.5 mg PO DAILY 30 Days Qty: 15 0RF atorvastatin 40 MG tablet 40 mg PO HS budesonide 0.5 mg/2 mL suspension for nebulization 0.5 mg inhalation Q12H Referrals Follow up/Referrals: Provider,MD [place] [Referring, Medical] - See instructions Sonido Ramírez MD [Physician, Pulmonology] - See instructions Ephraim Lombardo MD [Primary Care Provider, Internal Medicine] - See instructions Activity Restrictions/Add. Instructions Additional Instructions/Restrictions: Increase your home neb treatments to 4 times a day as we discussed. Take the steroids as directed. Continue to wear your home oxygen all the time. Please follow-up with Dr. Solares. If you have any further problems or concerns please return to the ED Clinical Impressions Clinical Impression: Acute exacerbation of chronic obstructive airways disease Instructions Patient Instructions: Chronic Obstructive Pulmonary Disease Print Language Print Language: Eritrean Discharge ED Provider: Ciaran Tsai General Adult HPI <Camilla Sandoval DO - Last Filed: 06/15/25 19:37> General Chief complaint: Shortness of Breath/Dyspnea Stated complaint: Resp Distress Time Seen by Provider: 06/15/25 15:07 Related Data Home Medications ?Medication ?Instructions ?Recorded ?Confirmed aspirin 81 mg tablet,delayed 81 mg PO HS 01/30/1912/25 release atorvastatin 40 mg tablet 40 mg PO HS 12/17/21 5 cholecalciferol (vitamin D3) 25 25 mcg PO DAILY 01/06/25 mcg (1,000 unit) capsule metoprolol succinate 25 mg 12.5 mg PO HS 04/25/2212/25 tablet,extended release 24 hr budesonide 0.5 mg/2 mL suspension 0.5 mg inhalation Q1 2H 04/10/23 01/06/25 for nebulization fluticasone fur. 200 mcg-umeclid 1 inh inhalation SAMINA Y 09/30/24 01/06/25 62.5 mcg-vilant 25 mcg inhalat.powder (Trelegy Ellipta) azithromycin 250 mg tablet 250 mg PO MOWEFR 12/01/24 0 01/06/25 clonazepam 0.5 mg tablet 0.5 mg PO DIRECTED 01/06/25 fluoxetine 40 mg capsule 40 mg PO DAILY 12/01/2412/25 linaclotide 290 mcg capsule 290 mcg PO DAILY PRN Abdom inal 12/01/24 01/06/25 (Linzess) Discomfort morphine concentrate 10 mg/0.5 mL 10 mg PO TIDP PRN Sh ortness Of 12/01/24 01/06/25 oral solution Breath albuterol sulfate 2.5 mg/3 mL 2.5 mg inhalation NEE DED PRN 12/06/24 01/06/25 (0.083 %) solution for nebulization Breathing Problems esomeprazole magnesium 20 mg 20 mg PO BID 12/06/24 capsule,delayed release magnesium 1 tab PO DAILY 12/06/2412/25 Previous Rx's ?Medication ?Instructions ?Recorded formoterol fumarate 20 mcg/2 mL 2 ml inhalation BID 90 days #180 mL 02/09/24 solution for nebulization (Perforomist) metoclopramide HCl 10 mg tablet 10 mg PO BIDWMEAL #60 tabs 12/01/24 bumetanide 1 mg tablet 0.5 mg (1/2 x 1 mg) PO DAILY 30 12/07/24 days #15 tabs spironolactone 25 mg tablet 12.5 mg (1/2 x 25 mg) PO D AILY 30 12/07/24 days #15 tabs albuterol sulfate 2.5 mg/3 mL 2.5 mg (3 mL) inhalation Q4H PRN 01/20/25 (0.083 %) solution for nebulization shortness of breat h or wheezing #75 mL budesonide 0.5 mg/2 mL suspension 0.5 mg (2 mL) inhala tion Q12H #180 03/27/25 for nebulization mL prednisone 20 mg tablet 20 mg PO BID 14 days #28 tab s 06/15/25 Allergies Allergy/AdvReac Type Severity Reaction Status Date / Time No Known Allergies Allergy Verified 01/06/25 14:28 <Chiquis Luciano (ED), WAITER/WAITRESS BUFFET - Last Filed: 06/15/25 17:29> History of Present Illness HPI narrative: 74-year-old female arrives via EMS for complaint of shortness of breath on her baseline O2 of 3 L. Since she went to a wedding in April specifically May 14 she says she has had increased shortness of breath, fevers, nausea, cough but not much, productive brown sputum and has not been able to get better. She has had 3 antibiotics with no improvement. She has history of COPD, CHF, emphysema. She is a full code on hospice. Patient appears short of breath on her oxygen at this moment. She complains of abdominal pain diffusely. She does have nausea no vomiting. [facility] <Camilla Sandoval, DO - Last Filed: 06/15/25 19:37> [facility] Disclaimer: The information contained in this section may have been updated after the patient was seen, as this information can be updated by other users. Medical History History of adenomatous polyp of colon Esophageal dysmotility Heartburn Bloating Chronic constipation Dysphagia Pre-op testing Atypical angina Diastolic dysfunction Dysphagia Stopped smoking with greater than 30 pack year history Multiple pulmonary nodules Eosinophilia Chronic hypoxemic respiratory failure Dyspnea on exertion Congestive heart failure Acute exacerbation of CHF (congestive heart failure) Coronary atherosclerosis of [place] coronary artery Acute systolic CHF (congestive heart failure) NSTEMI (non-ST elevated myocardial infarction) CKD (chronic kidney disease) Tobacco dependence Acute exacerbation of chronic obstructive airways disease Atypical chest pain Bradycardia Carotid artery stenosis HLD (hyperlipidemia) COPD (chronic obstructive pulmonary disease) Surgical History History of coronary artery stent placement History of hysterectomy History of colonoscopy History of esophagogastroduodenoscopy (EGD) History of lumpectomy No significant past surgical history Family History Other Cancer Family history of GERD Family history of arthritis Family history of hyperlipidemia Family history of hypertension Heart attack Social History Smoking Status: Former smoker tobacco type: cigarettes packs per day: 1 second hand exposure: No alcohol intake: never substance use type: denies use 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al status: retired Travel in the last 8 weeks?: None housing: house marital status: 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al exposures/hazards: No caffeine: Yes Have you lived/traveled outside [place] in past 30 days?: No Contact w/someone who lives/traveled outside US past 30 days?: No Exposure to someone with infectious disease in past 14 days?: No Do you have a fever (greater than 100.4 F or 38 C)?: No Have you tested positive for COVID-19?: No Exposed to someone with COVID-19 in past 14 days?: No Do you have a sore throat?: No Do you have a cough?: No Do you have any weakness?: No Do you have any diarrhea?: No Are you experiencing any unusual bleeding?: No Do you have any muscle aches/pain?: No Do you have any abdominal pain?: No Are you experiencing loss of taste or smell?: No Other Medical History Have you received the Flu Vaccine for this season: No Have you received the Pneumonia Vaccine: Yes <Chiquis CHAPPELL), WAITER/WAITRESS [employer]FFET - Last Filed: 06/15/25 17:29> ROS Obtained: Yes Systems reviewed as appropriate & no additional complaints except as documented Constitutional Constitutional: Reports as per HPI Physical Exam <Camilla Sandoval DO - Last Filed: 06/15/25 19:37> General General appearance: alert and in no apparent distress Head Head exam: atraumatic, normocephalic and normal inspection Eye Eye exam: Present normal appearance, PERRL and EOMI; Absent scleral icterus ENT ENT exam: Present normal exam and normal external ear exam Neck Neck exam: Present normal inspection and full ROM Chest Chest inspection: Present normal inspection and symmetric chest wall rise Respiratory Respiratory exam: Present normal lung sounds bilaterally; Absent respiratory distress or wheezes Cardiovascular Cardiovascular exam: Present regular rate, normal rhythm and normal heart sounds Abdominal Exam Abdominal exam: Present soft and distention; Absent tenderness, guarding or rebound Extremities Exam Extremities exam: Present normal inspection and full ROM Back Exam Back exam: Present normal inspection and full ROM Neurological Exam Neurological exam: Present alert and oriented X3 Psychiatric Psychiatric exam: Present normal affect and normal mood Skin Skin exam: Present warm and dry <Chiquis Luciano (COLLEEN), WAITER/WAITRESS [employer] - Last Filed: 06/15/25 17:29> General General appearance: alert, anxious and in distress (Short of breath on 3 L) Head Head exam: normocephalic and normal inspection ENT ENT exam: Present mucous membranes moist Neck Neck exam: Present full ROM Respiratory Respiratory exam: Present respiratory distress and wheezes Cardiovascular Cardiovascular exam: Present regular rate, normal rhythm, normal heart sounds, +S1 and +S2 Abdominal Exam Abdominal exam: Present soft and tenderness Extremities Exam Extremities exam: Present full ROM Back Exam Back exam: Present full ROM Neurological Exam Neurological exam: Present alert and oriented X3 Psychiatric Psychiatric exam: Present normal mood Skin Skin exam: Present warm and dry Medical Decision Making <Camilla Sandoval, DO - Last Filed: 06/15/25 19:37> Medical Records Screening: Per USPSTF and CDC recommendations, given the prevalence of disease in our region, it is our hospital?s policy to screen for HIV and viral Hepatitis for all patients aged 18 and over and those with ongoing risk factors. Vital Signs: 06/15/25 15:12 06/15/25 15:17 06/15/25 15:18 Temperature 98.3 F Temperature Source Oral Pulse Rate 84 Pulse Rate [Right Radial] 89 Respiratory Rate 25 H Blood Pressure 181/75 H Blood Pressure [Right Arm] 229/102 H Blood Pressure Mean Blood Pressure Mean [Right Arm] 144 Blood Pressure Position 02 Sat by Pulse Oximetry 94 L 94 L 94 L Oxygen Delivery Method Nasal Cannula Nasal Cannula Nasal Cannula Oxygen Flow Rate (LPM) 3 3 3 06/15/25 15:30 06/15/25 15:35 06/15/25 16:31 Temperature Temperature Source Pulse Rate 79 78 75 Pulse Rate [Right Radial] Respiratory Rate Blood Pressure 166/83 H 166/83 H 132/59 L Blood Pressure [Right Arm] Blood Pressure Mean 110 83 Blood Pressure Mean [Right Arm] Blood Pressure Position 02 Sat by Pulse Oximetry 94 L 93 L 97 Oxygen Delivery Method Nasal Cannula Nasal Cannula Oxygen Flow Rate (LPM) 3 3 06/15/25 17:01 06/15/25 17:30 06/15/25 19:24 Temperature 98.9 F Temperature Source Oral Pulse Rate 72 77 86 Pulse Rate [Right Radial] Respiratory Rate 26 H Blood Pressure 141/59 H 144/56 H 140/49 L Blood Pressure [Right Arm] Blood Pressure Mean Blood Pressure Mean [Right Arm] Blood Pressure Position Sitting 02 Sat by Pulse Oximetry 99 96 Oxygen Delivery Method Nasal Cannula Nasal Cannula Nasal Cannula Oxygen Flow Rate (LPM) 3 3 4 Lab Data Lab Results 06/15/25 15:25: WBC 8.6, RBC 3.94 L, Hgb 11.3 L, Hct 35.1 L, MCV 89.1, MCH 28.7, MCHC 32.2, RDW 12.7, Plt Count 223, MPV 9.8, Neut % (Auto) 81.4 H, Lymph % (Auto) 11.6, [place] % (Auto) 5.1, Eos % (Auto) 0.7, Baso % (Auto) 0.5, Neut # (Auto) 7.0, Lymph # (Auto) 1.0, [place] # (Auto) 0.4, Eos # (Auto) 0.1, Baso # (Auto) 0.0, D-Dimer 1.18 H, Sodium 137, Potassium 4.3, Chloride 97 L, Carbon Dioxide 32 H, Anion Gap 12.3, BUN 11, Creatinine 0.90, Estimated Creat Clear 58, Estimated GFR 62, Est GFR ( Amer) 74, Glucose 109 H, Calcium 8.8, M agnesium 1.5 L, Total Bilirubin 0.6, AST 34, ALT 16, Alkaline Phosphatase 106, Troponin I 0.01, NT-Pro-B Natriuret Pep 1270 H, Total Protein 6.0 L, Albumin 3.6, Globulin 2.4, Albumin/Globulin Ratio 1.5, Lipase 29 06/15/25 15:35: SARS-CoV-2 (PCR) Not detected, Influenza A Untype (PCR) Not detected, Influenza Type B (PCR) Not detected 06/15/25 15:45: VBG pH 7.35, VBG pCO2 58.5 H, VBG pO2 53.9 H, VBG HCO3 31.2 H, V BG Total CO2 33.0 H, VBG O2 Saturation 85.3 H, VBG Base Excess 5.5 H, VBG Lactic Acid 1.5 06/15/25 18:07: Troponin I 0.02 06/15/25 15:25 06/15/25 15:25 Orders (Tests/Meds): ED MEDICATIONS Discontinued Medications Generic Name Dose Route Start Last Admin Trade Name Enedina PRN Reason Stop Dose Admin Albuterol Sulfate 20 mg 06/15/25 17:24 06/15/25 17:32 Albuterol 0.083% 2.5 Mg/3 Ml [facility] 06/15/25 17:25 20 mg ONCE ONE Administration Albuterol/Ipratropium 9 ml 06/15/25 16:34 06/15/25 16:50 Ipratropium/Albuterol 3 Ml [facility] 06/15/25 16:35 9 ml ONCE ONE Administration Magnesium Sulfate 2 gm in 50 mls @ 50 mls/hr 06/15/25 15:15 06/15/25 16:43 Magnesium Sulfate 2gm/50ml Premix IV 06/15/25 16:14 Infused ONCE ONE Infusion Iopamidol 80 ml 06/15/25 16:00 06/15/25 16:01 Iopamidol-370 (76%);100ml Bottle IV 06/15/25 16:01 80 ml ONCE ONE Administration Methylprednisolone Sodium Succinate 125 mg 06/15/25 17:09 06/15/25 17:33 Methylprednisolone Sod Succ 125mg Vial IV 06/15/25 17:10 125 mg ONCE ONE Administration Sodium Chloride 50 ml 06/15/25 16:00 06/15/25 16:01 0.9 % Sodium Chloride 50 Ml Vial IV 06/15/25 16:01 50 ml ONCE ONE Administration Sodium Chloride 10 ml 06/15/25 16:00 06/15/25 16:01 Sodium Chloride 0.9% 10ml Syr (Rad Only) IV 06/15/25 16:01 10 ml ONCE ONE Administration ORDERS Category Date Time Status CT abdomen pelvis w con Stat Cat Scan 06/15/25 15:15 Completed CTA Chest [CT angio chest PE protocol] Stat Cat Scan 06/15/25 15:15 Completed Chest XR -- portable [XR chest portable] Stat Exams 06/15/25 15:15 Completed POCUS Point of Care (ER Only) Stat Exams 06/15/25 15:08 Completed BNP [NT Pro Brain Natriuretic Pep.] Stat Lab 06/15/25 15:25 Completed CBC [Complete Blood Count Auto Diff] Stat Lab 06/15/25 15:25 Completed Comprehensive Metabolic Panel Stat Lab 06/15/25 15:25 Completed D-Dimer Stat Lab 06/15/25 15:25 Completed Lipase Stat Lab 06/15/25 15:25 Completed Magnesium Stat Lab 06/15/25 15:25 Completed Rapid PCR Covid and Flu A/B Stat Lab 06/15/25 15:35 Completed Trop I [Troponin I] Stat Lab 06/15/25 15:25 Completed Troponin I Q3H Lab 06/15/25 18:07 Completed VBG [Venous Blood Gas] Stat RT 06/15/25 15:45 Completed Medical Decision Narrative: patient is a 74-year-old female presenting to the emergency department for evaluation of increased shortness of breath, abdominal pain, cough. Patient is hemodynamically stable and nontoxic-appearing upon arrival, afebrile. Differential diagnosis includes CHF exacerbation, COPD, pneumonia, ACS/IN, constipation, bowel obstruction, intra-abdominal process, among others. Workup will be conducted with hematologic labs, specific imaging. Initial inventions include mag for shortness of breath. Initial workup reviewed by me hematologic labs are remarkable for normal white count, normal initial and3 hour troponin, midly elevated BNP however her typical BNP is a lot higher in the 3 and 6000's. Hers today is 1270. Patient has normal kidney function.. CT scan shows severe emphysema and COPD. No clinical evidence of CHF exacerbation. Patient does not look fluid overloaded. She is on her O2 baseline of 3 L and her oxygen level is 97%. Her breathing appears much improved after nebs. We have also given her some magnesium to help her smooth muscle. That has seemed to help. Patient has improved significantly. We will do an extended neb and then plan is to discharge patient home on steroids. She is to follow-up with her PCP. Patient was discharged home in stable condition, return precautions were discussed <Chiquis Luciano (ED), WAITER/WAITRESS [employer] - Last Filed: 06/15/25 17:29> Noble Inquiry Pt receiving controlled substance: No [place] was queried for this patient: No Vital Signs: 06/15/25 15:12 06/15/25 15:17 06/15/25 15:18 Temperature 98.3 F Temperature Source Oral Pulse Rate 84 Pulse Rate [Right Radial] 89 Respiratory Rate 25 H Blood Pressure 181/75 H Blood Pressure [Right Arm] 229/102 H Blood Pressure Mean Blood Pressure Mean [Right Arm] 144 Blood Pressure Position 02 Sat by Pulse Oximetry 94 L 94 L 94 L Oxygen Delivery Method Nasal Cannula Nasal Cannula Nasal Cannula Oxygen Flow Rate (LPM) 3 3 3 06/15/25 15:30 06/15/25 15:35 06/15/25 16:31 Temperature Temperature Source Pulse Rate 79 78 75 Pulse Rate [Right Radial] Respiratory Rate Blood Pressure 166/83 H 166/83 H 132/59 L Blood Pressure [Right Arm] Blood Pressure Mean 110 83 Blood Pressure Mean [Right Arm] Blood Pressure Position 02 Sat by Pulse Oximetry 94 L 93 L 97 Oxygen Delivery Method Nasal Cannula Nasal Cannula Oxygen Flow Rate (LPM) 3 3 06/15/25 17:01 06/15/25 17:30 06/15/25 19:24 Temperature 98.9 F Temperature Source Oral Pulse Rate 72 77 86 Pulse Rate [Right Radial] Respiratory Rate 26 H Blood Pressure 141/59 H 144/56 H 140/49 L Blood Pressure [Right Arm] Blood Pressure Mean Blood Pressure Mean [Right Arm] Blood Pressure Position Sitting 02 Sat by Pulse Oximetry 99 96 Oxygen Delivery Method Nasal Cannula Nasal Cannula Nasal Cannula Oxygen Flow Rate (LPM) 3 3 4 Lab Data Lab Results 06/15/25 15:25: WBC 8.6, RBC 3.94 L, Hgb 11.3 L, Hct 35.1 L, MCV 89.1, MCH 28.7, MCHC 32.2, RDW 12.7, Plt Count 223, MPV 9.8, Neut % (Auto) 81.4 H, Lymph % (Auto) 11.6, [place] % (Auto) 5.1, Eos % (Auto) 0.7, Baso % (Auto) 0.5, Neut # (Auto) 7.0, Lymph # (Auto) 1.0, [place] # (Auto) 0.4, Eos # (Auto) 0.1, Baso # (Auto) 0.0, D-Dimer 1.18 H, Sodium 137, Potassium 4.3, Chloride 97 L, Carbon Dioxide 32 H, Anion Gap 12.3, BUN 11, Creatinine 0.90, Estimated Creat Clear 58, Estimated GFR 62, Est GFR ( Amer) 74, Glucose 109 H, Calcium 8.8, M agnesium 1.5 L, Total Bilirubin 0.6, AST 34, ALT 16, Alkaline Phosphatase 106, Troponin I 0.01, NT-Pro-B Natriuret Pep 1270 H, Total Protein 6.0 L, Albumin 3.6, Globulin 2.4, Albumin/Globulin Ratio 1.5, Lipase 29 06/15/25 15:35: SARS-CoV-2 (PCR) Not detected, Influenza A Untype (PCR) Not detected, Influenza Type B (PCR) Not detected 06/15/25 15:45: VBG pH 7.35, VBG pCO2 58.5 H, VBG pO2 53.9 H, VBG HCO3 31.2 H, V BG Total CO2 33.0 H, VBG O2 Saturation 85.3 H, VBG Base Excess 5.5 H, VBG Lactic Acid 1.5 06/15/25 18:07: Troponin I 0.02 Orders (Tests/Meds): ED MEDICATIONS Discontinued Medications Generic Name Dose Route Start Last Admin Trade Name Freq PRN Reason Stop Dose Admin Albuterol Sulfate 20 mg 06/15/25 17:24 06/15/25 17:32 Albuterol 0.083% 2.5 Mg/3 Ml [facility] 06/15/25 17:25 20 mg ONCE ONE Administration Albuterol/Ipratropium 9 ml 06/15/25 16:34 06/15/25 16:50 Ipratropium/Albuterol 3 Ml [facility] 06/15/25 16:35 9 ml ONCE ONE Administration Magnesium Sulfate 2 gm in 50 mls @ 50 mls/hr 06/15/25 15:15 06/15/25 16:43 Magnesium Sulfate 2gm/50ml Premix IV 06/15/25 16:14 Infused ONCE ONE Infusion Iopamidol 80 ml 06/15/25 16:00 06/15/25 16:01 Iopamidol-370 (76%);100ml Bottle IV 06/15/25 16:01 80 ml ONCE ONE Administration Methylprednisolone Sodium Succinate 125 mg 06/15/25 17:09 06/15/25 17:33 Methylprednisolone Sod Succ 125mg Vial IV 06/15/25 17:10 125 mg ONCE ONE Administration Sodium Chloride 50 ml 06/15/25 16:00 06/15/25 16:01 0.9 % Sodium Chloride 50 Ml Vial IV 06/15/25 16:01 50 ml ONCE ONE Administration Sodium Chloride 10 ml 06/15/25 16:00 06/15/25 16:01 Sodium Chloride 0.9% 10ml Syr (Rad Only) IV 06/15/25 16:01 10 ml ONCE ONE Administration ORDERS Category Date Time Status CT abdomen pelvis w con Stat Cat Scan 06/15/25 15:15 Completed CTA Chest [CT angio chest PE protocol] Stat Cat Scan 06/15/25 15:15 Completed Chest XR -- portable [XR chest portable] Stat Exams 06/15/25 15:15 Completed POCUS Point of Care (ER Only) Stat Exams 06/15/25 15:08 Completed BNP [NT Pro Brain Natriuretic Pep.] Stat Lab 06/15/25 15:25 Completed CBC [Complete Blood Count Auto Diff] Stat Lab 06/15/25 15:25 Completed Comprehensive Metabolic Panel Stat Lab 06/15/25 15:25 Completed D-Dimer Stat Lab 06/15/25 15:25 Completed Lipase Stat Lab 06/15/25 15:25 Completed Magnesium Stat Lab 06/15/25 15:25 Completed Rapid PCR Covid and Flu A/B Stat Lab 06/15/25 15:35 Completed Trop I [Troponin I] Stat Lab 06/15/25 15:25 Completed Troponin I Q3H Lab 06/15/25 18:07 Completed VBG [Venous Blood Gas] Stat RT 06/15/25 15:45 Completed Medical Decision Narrative: patient is a 74-year-old female presenting to the emergency department for evaluation of increased shortness of breath, abdominal pain, cough. Patient is hemodynamically stable and nontoxic-appearing upon arrival, afebrile. Differential diagnosis includes CHF exacerbation, COPD, pneumonia, among others. Workup will be conducted with hematologic labs, specific imaging. Initial inventions include mag for shortness of breath. Initial workup reviewed by [place] hematologic labs are remarkable for normal white count, normal troponin, elevated BNP however her typical BNP is a lot higher in the 3 and 6000's. Hers today is 1270. Patient has normal kidney function.. CT scan shows severe emphysema and COPD. No clinical evidence of CHF exacerbation. Patient does not look fluid overloaded. She is on her O2 baseline of 3 L and her oxygen level is 97%. Her breathing appears much improved after nebs. We have also given her some magnesium to help her smooth muscle. That has seemed to help. Patient has improved significantly. We will do an extended neb and then plan is to discharge patient home on steroids. She is to follow-up with her PCP. Critical Care <Camilla Sandoval, DO - Last Filed: 06/15/25 19:37> Critical Care Time Critical Care Time: No
--- OUTSIDE RECORDS SUMMARY | 2025-06-15 15:13 | XMS_ITS ---
Author Name Auto Generated, Auto Generated Organization [facility] Address [address] [place] [address] Phone [phone] Care Team Providers Care Fretted Instruments Inspector Name Role Phone Gonzalez England Unavailable [phone] Cece Calvert Unavailable [phone] Ephraim Lombardo Unavailable Functional Status No Results Mental Status No Results Allergies and Intolerances Name Onset Date Reaction Severity No Known Drug Allergies (Allergy) FriDec 07 16: 42:00 EST 2024 Encounters Program Name Primary Diagnosis Admission Date/Time Dis charge Date/Time Home-based Hospice Hypertensive heart disease with heart failure FriDec 06 19:00:00 EST 2024 Medications Medication Directions Start Date End Date Levaquin 500 mg tablet 1 Tablet Oral 1 T delfin Daily for 5 Days Indication: URI FriMay 27 00:00:00 EDT 2024May 31 23:59:00 EDT 2024 Augmentin 875 mg-125 mg tablet 1 Tablet Oral 2 Times Daily Indication: respiratory infection FriMay 24 00:00:00 EDT 2024May 27 15:48:00 EDT 2024 predniSONE 10 mg tablet 2 Tablet Oral 1 Time Daily for 7 Days Indication: URI FriMay 24 00:00:00 EDT 2024May 30 23:59:00 EDT 2024 predniSONE 10 mg tablet 2 Tablet Oral 1 Time Daily Indication: for dyspnea, 20mg for 30 days, then decrease back to 10mg FriMay 02 00:00:00 EDT 2024May 26 15:01:00 EDT 2024 Levaquin 500 mg tablet 1 Tablet Oral 1 T delfin Daily Indication: Recurring respiratory infection FriMay 09 00:00:00 EDT 2024May 19 00:00:00 EDT 2024 PROzac 40 mg capsule 1 Capsule Oral 1 Ti me Daily Indication: antidepressant FriApr 21 00:00:00 EDT 2024 acyclovir 800 mg tablet 1 Tablet Oral NC N 3 Times Daily for 10 Days Indication: for herpes simplex flare-up FriApr 13 00:00:00 EDT 2024Apr 22 23:59:00 EDT 2024 Levaquin 500 mg tablet 1 Tablet Oral 1 T delfin Daily for 10 Days Indication: respiratory infection FriApr 07 00:00:00 EDT 2024Apr 16 23:59:00 EDT 2024 predniSONE 10 mg tablet 1 Tablet Oral 1 Time Daily Indication: COPDStep down: take 40mg today 6/10 30mg on 6/11 20mg on 6/12 start 10mg daily x 1 week then re assess Step down: take 40mg today 6/10 30mg on 6/11 20mg on 6/12 start 10mg daily x 1 week then re assess FriApr 05 00:00:00 EDT 2024May 02 19:43:00 EDT 2024 doxycycline hyclate 100 mg tablet 100 Tablet Oral 2 Times Daily for 7 Days Indication: possible respiratory infection FriApr 05 00:00:00 EDT 2024Apr 11 23:59:00 EDT 2024 fluconazole 100 mg tablet 1 Tablet Oral 1 Time Daily for 7 Days Indication: yeast infection FriMarch 23 00:00:00 EDT 2024Mar 29 23:59:00 EDT 2024 spironolactone 25 mg tablet 0.5 Tablet O ral 1 Time Daily Indication: edema FriMarch 14 00:00:00 EDT 2024 bumetanide 1 mg tablet 0.5 Tablet Oral P RN Every Morning Indication: edema FriMarch 14 00:00:00 EDT 2024 acyclovir 800 mg tablet 1 Tablet Oral NC N 3 Times Daily Indication: for herpes simplex flare-up FriMarch 14 00:00:00 EDT 2024Apr 13 16:39:00 EDT 2024 lidocaine 5 % topical patch 1 Patch Topi thomas 1 Time Daily Indication: for pain to R shoulder. on for 12 hrs, off for 12 hrs FriDec 31 00:00:00 EST 2024Dec 31 11:29:00 EST 2024 lidocaine 4 % topical patch 1 Patch Topi thomas 1 Time Daily Indication: pain. On for 12 hrs, off for 12 hrs FriDec 31 00:00:00 EST 2024 predniSONE 10 mg tablet 1 Tablet Oral 1 Time Daily Indication: COPD. To be taken FriDec 28 00:00:00 EST 2024Apr 05 13:44:00 EDT 2024 morphine concentrate 100 mg/5 mL (20 mg/mL) oral solution 0.5 Milliliter Oral Every 4 Hours Indication: pain/SOA*Pt reports only tolerating half of original order* FriDec 22 00:00:00 EST 2024 bumetanide 1 mg tablet 2 Tablet Oral 1 T delfin Daily Indication: CHF FriDec 20 00:00:00 EST 2024Dec 28 16:41:00 EST 2024 promethazine 25 mg tablet 1 Tablet Oral PRN Every 8 Hours Indication: nausea FriDec 20 00:00:00 EST 2024 Levaquin 750 mg tablet 1 Tablet Oral 2 T imes Daily Indication: per Dr. Lombardo FriDec 20 00:00:00 EST 2024March 14 14:23:00 EDT 2024 traZODone 50 mg tablet 1 Tablet Oral Selene r Of Sleep Indication: insomnia FriDec 17 00:00:00 EST 2024Dec 17 11:58:00 EST 2024 traZODone 50 mg tablet 0.5 Tablet Oral H our Of Sleep Indication: insomnia FriDec 17 00:00:00 EST 2024March 14 14:20:00 EDT 2024 morphine concentrate 100 mg/5 mL (20 mg/mL) oral solution 0.5 Milliliter Oral 3 Times Daily Indication: pain/SOA*Pt reports only tolerating half of original order* FriDec 17 00:00:00 EST 2024Dec 22 18:30:00 EST 2024 Tylenol-Codeine #3 300 mg-30 mg tablet 1 Tablet Oral PRN Every 6 Hours Indication: mod pain FriDec 15 00:00:00 EST 2024 morphine concentrate 100 mg/5 mL (20 mg/mL) oral solution 0.25 Milliliter Oral 3 Times Daily Indication: pain/SOA*Pt reports only tolerating half of original order* FriDec 11 00:00:00 EST 2024 Fri b 21 12:07:00 EST 2024 Linzess 290 mcg capsule 1 Capsule Oral 1 Time Daily Indication: abdominal discomfort FriDec 08 00:00:00 EST 2024 predniSONE 10 mg tablet 1 Tablet Oral 1 Time Daily Indication: COPD FriDec 07 00:00:00 EST 2024 04 16:40:00 EST 2024 senna 8.6 mg tablet 1 Tablet Oral PRN Ev aranza 24 Hours Indication: constipation FriDec 07 00:00:00 EST 2024 bumetanide 0.5 mg tablet 1 Tablet Oral 1 Time Daily Indication: fluid FriDec 07 00:00:00 EST 2024Dec 20 09:43:00 EST 2024 spironolactone 25 mg tablet 0.5 Tablet O ral 1 Time Daily Indication: fluid/CHF FriDec 07 00:00:00 EST 2024March 14 14:20:00 EDT 2024 albuterol sulfate 2.5 mg/3 mL (0.083 %) solution for nebulization 3 Milliliter Inhalation PRN Every 6 Hours Indication: SOA/congestion FriDec 07 00:00:00 EST 2024 aspirin 81 mg tablet,delayed release 1 Tablet Oral Hour Of Sleep Indication: heart FriDec 07 00:00:00 EST 2024 atorvastatin 40 mg tablet 1 Tablet Oral Hour Of Sleep Indication: cholesterol FriDec 07 00:00:00 EST 2024Dec 15 09:59:00 EST 2024 azithromycin 250 mg tablet 1 Tablet Oral Every 2 Days Indication: Take q Fri-Fri-Fri for COPD maintainence FriDec 07 00:00:00 EST 2024 budesonide 0.5 mg/2 mL suspension for nebulization 2 Milliliter Inhalation 2 Times Daily Indication: COPD/SOA/congestion FriDec 07 00:00:00 EST 2024 cholecalciferol (vitamin D3) 25 mcg (1,000 unit) capsule 1 Capsule Oral 1 Time Daily Indication: supplement FriDec 07 00:00:00 EST 2024 clonazePAM 0.5 mg tablet 1 Tablet Oral 2 Times Daily Indication: 1 tab in AM2 tabs in PM for anxiety FriDec 07 00:00:00 EST 2024 esomeprazole magnesium 20 mg capsule,delayed release 1 Capsule Oral 2 Times Daily Indication: GERD FriDec 07 00:00:00 EST 2024 FLUoxetine 40 mg capsule 1 Capsule Oral 1 Time Daily Indication: depression FriDec 07 00:00:00 EST 2024March 14 14:22:00 EDT 2024 formoterol fumarate 20 mcg/2 mL solution for nebulization 2 Milliliter Inhalation 2 Times Daily Indication: SOA/congestion FriDec 07 00:00:00 EST 2024 Linzess 290 mcg capsule 1 Capsule Oral P RN Every 24 Hours Indication: abdominal discomfort FriDec 07 00:00:00 EST 2024 Wed Dec 08 12:40:00 EST 2024 magnesium 30 mg tablet 1 Tablet Oral 1 T delfin Daily Indication: supplement FriDec 07 00:00:00 EST 2024 Reglan 10 mg tablet 1 Tablet Oral 2 Time s Daily Indication: with meals for GERD FriDec 07 00:00:00 EST 2024 metoprolol succinate ER 25 mg tablet,extended release 24 hr 0.5 Tablet Oral Hour Of Sleep Indication: HTN FriDec 07 00:00:00 EST 2024 Zofran 4 mg tablet 1 Tablet Oral PRN Ev aranza 6 Hours Indication: nausea/vomiting FriDec 07 00:00:00 EST 2024 Trelegy Ellipta 200 mcg-62.5 mcg-25 mcg powder for inhalation 1 Puff Inhalation 1 Time Daily Indication: COPD FriDec 07 00:00:00 EST 2024 Oxygen 3 Liter Intranasal - Both Nostrils Continuous Indication: COPD FriDec 07 00:00:00 EST 2024 Treatment Plan Problems No Known Problems Social History Social History Observation Description Date Smoking Status Current every day smoker FriDec 06 00:00:00 EST 2024 Sex Female FriJun 16 00:00 :00 EDT 1949 Vital Signs Vital Sign Measurement Date Systolic blood pressure 130 mm[Hg] FriMarch 14 10:00:00 EDT 2024 Diastolic blood pressure 80 mm[Hg] FriMarch 14 10:00:00 EDT 2024 Respiratory rate 24 /min FriMarch 14 10:0 0:00 EDT 2024 Heart rate 88 /min FriMarch 14 10:00 :00 EDT 2024 Systolic blood pressure 120 mm[Hg] FriFeb 22 05:55:00 EDT 2024 Diastolic blood pressure 74 mm[Hg] FriFeb 22 05:55:00 EDT 2024 Respiratory rate 20 /min FriFeb 22 05:5 5:00 EDT 2024 Heart rate 60 /min FriFeb 22 05:55 :00 EDT 2024 Systolic blood pressure 140 mm[Hg] FriMay 30 07:40:00 EDT 2024 Diastolic blood pressure 80 mm[Hg] FriMay 30 07:40:00 EDT 2024 Respiratory rate 20 /min FriMay 30 07:4 0:00 EDT 2024 Heart rate 88 /min FriMay 30 07:40 :00 EDT 2024 Systolic blood pressure 142 mm[Hg] FriApr 05 09:30:00 EDT 2024 Diastolic blood pressure 70 mm[Hg] FriApr 05 09:30:00 EDT 2024 Respiratory rate 28 /min FriApr 05 09:3 0:00 EDT 2024 Heart rate 88 /min FriApr 05 09:30 :00 EDT 2024 Respiratory rate 22 /min FriDec 20 04:2 6:00 EST 2024 Heart rate 45 /min FriDec 20 04:26 :00 EST 2024 Systolic blood pressure 132 mm[Hg] FriMay 24 06:56:00 EDT 2024 Diastolic blood pressure 68 mm[Hg] FriMay 24 06:56:00 EDT 2024 Respiratory rate 26 /min FriMay 24 06:5 6:00 EDT 2024 Heart rate 74 /min FriMay 24 06:56 :00 EDT 2024 Systolic blood pressure 108 mm[Hg] FriMarch 07 11:10:00 EDT 2024 Diastolic blood pressure 74 mm[Hg] FriMarch 07 11:10:00 EDT 2024 Respiratory rate 18 /min FriMarch 07 11:1 0:00 EDT 2024 Heart rate 68 /min FriMarch 07 11:10 :00 EDT 2024 Heart rate 78 /min FriMar 31 05:10 :00 EDT 2024 Systolic blood pressure 118 mm[Hg] FriMay 09 08:05:00 EDT 2024 Diastolic blood pressure 78 mm[Hg] FriMay 09 08:05:00 EDT 2024 Respiratory rate 24 /min FriMay 09 08:0 5:00 EDT 2024 Heart rate 80 /min FriMay 09 08:05 :00 EDT 2024 Systolic blood pressure 152 mm[Hg] FriApr 13 12:21:00 EDT 2024 Diastolic blood pressure 74 mm[Hg] FriApr 13 12:21:00 EDT 2024 Respiratory rate 24 /min FriApr 13 12:2 1:00 EDT 2024 Heart rate 84 /min FriApr 13 12:21 :00 EDT 2024 Systolic blood pressure 136 mm[Hg] FriJun 13 09:25:00 EDT 2024 Diastolic blood pressure 72 mm[Hg] FriJun 13 09:25:00 EDT 2024 Respiratory rate 22 /min FriJun 13 09:2 5:00 EDT 2024 Heart rate 74 /min FriJun 13 09:25 :00 EDT 2024 Systolic blood pressure 110 mm[Hg] FriDec 07 08:25:00 EST 2024 Diastolic blood pressure 64 mm[Hg] FriDec 07 08:25:00 EST 2024 Respiratory rate 18 /min FriDec 07 08:2 5:00 EST 2024 Heart rate 72 /min FriDec 07 08:25 :00 EST 2024 Systolic blood pressure 100 mm[Hg] FriJan 04 06:18:00 EDT 2024 Diastolic blood pressure 54 mm[Hg] FriJan 04 06:18:00 EDT 2024 Respiratory rate 24 /min FriJan 04 06:1 8:00 EDT 2024 Heart rate 60 /min FriJan 04 06:18 :00 EDT 2024 Systolic blood pressure 128 mm[Hg] FriMay 16 09:45:00 EDT 2024 Diastolic blood pressure 60 mm[Hg] FriMay 16 09:45:00 EDT 2024 Respiratory rate 20 /min FriMay 16 09:4 5:00 EDT 2024 Heart rate 84 /min FriMay 16 09:45 :00 EDT 2024 Systolic blood pressure 144 mm[Hg] FriJan 18 07:42:00 EDT 2024 Diastolic blood pressure 78 mm[Hg] FriJan 18 07:42:00 EDT 2024 Respiratory rate 24 /min FriJan 18 07:4 2:00 EDT 2024 Heart rate 58 /min FriJan 18 07:42 :00 EDT 2024 Respiratory rate 24 /min FriMarch 17 07:4 5:00 EDT 2024 Systolic blood pressure 142 mm[Hg] FriFeb 08 06:23:00 EDT 2024 Diastolic blood pressure 76 mm[Hg] FriFeb 08 06:23:00 EDT 2024 Respiratory rate 22 /min FriFeb 08 06:2 3:00 EDT 2024 Heart rate 74 /min FriFeb 08 06:23 :00 EDT 2024 Systolic blood pressure 138 mm[Hg] FriJan 28 08:30:00 EDT 2024 Diastolic blood pressure 64 mm[Hg] FriJan 28 08:30:00 EDT 2024 Respiratory rate 20 /min FriJan 28 08:3 0:00 EDT 2024 Heart rate 62 /min FriJan 28 08:30 :00 EDT 2024 Systolic blood pressure 100 mm[Hg] FriFeb 15 05:30:00 EDT 2024 Diastolic blood pressure 60 mm[Hg] FriFeb 15 05:30:00 EDT 2024 Respiratory rate 20 /min FriFeb 15 05:3 0:00 EDT 2024 Heart rate 68 /min FriFeb 15 05:30 :00 EDT 2024 Systolic blood pressure 104 mm[Hg] FriFeb 01 07:55:00 EDT 2024 Diastolic blood pressure 60 mm[Hg] FriFeb 01 07:55:00 EDT 2024 Respiratory rate 20 /min FriFeb 01 07:5 5:00 EDT 2024 Heart rate 56 /min FriFeb 01 07:55 :00 EDT 2024 Systolic blood pressure 106 mm[Hg] FriDec 28 04:20:00 EST 2024 Diastolic blood pressure 62 mm[Hg] FriDec 28 04:20:00 EST 2024 Respiratory rate 22 /min FriDec 28 04:2 0:00 EST 2024 Heart rate 52 /min FriDec 28 04:20 :00 EST 2024 Systolic blood pressure 154 mm[Hg] FriJun 06 07:22:00 EDT 2024 Diastolic blood pressure 80 mm[Hg] FriJun 06 07:22:00 EDT 2024 Respiratory rate 26 /min FriJun 06 07:2 2:00 EDT 2024 Heart rate 80 /min FriJun 06 07:22 :00 EDT 2024 Systolic blood pressure 132 mm[Hg] FriMarch 23 09:55:00 EDT 2024 Diastolic blood pressure 78 mm[Hg] FriMarch 23 09:55:00 EDT 2024 Respiratory rate 24 /min FriMarch 23 09:5 5:00 EDT 2024 Heart rate 60 /min FriMarch 23 09:55 :00 EDT 2024 Systolic blood pressure 100 mm[Hg] Frib 06:50:00 EST 2024 Diastolic blood pressure 62 mm[Hg] Frib 06:50:00 EST 2024 Respiratory rate 24 /min Frib 06:5 0:00 EST 2024 Heart rate 60 /min FriDec 22 06:50 :00 EST 2024 Systolic blood pressure 128 mm[Hg] FriMarch 07 08:59:00 EDT 2024 Diastolic blood pressure 60 mm[Hg] FriMarch 07 08:59:00 EDT 2024 Respiratory rate 20 /min FriMarch 07 08:5 9:00 EDT 2024 Heart rate 88 /min FriMarch 07 08:59 :00 EDT 2024 Systolic blood pressure 120 mm[Hg] FriMay 02 10:40:00 EDT 2024 Diastolic blood pressure 80 mm[Hg] FriMay 02 10:40:00 EDT 2024 Respiratory rate 24 /min FriMay 02 10:4 0:00 EDT 2024 Heart rate 92 /min FriMay 02 10:40 :00 EDT 2024 Systolic blood pressure 124 mm[Hg] FriApr 26 05:50:00 EDT 2024 Diastolic blood pressure 76 mm[Hg] FriApr 26 05:50:00 EDT 2024 Respiratory rate 20 /min FriApr 26 05:5 0:00 EDT 2024 Heart rate 78 /min FriApr 26 05:50 :00 EDT 2024 Systolic blood pressure 102 mm[Hg] FriDec 14 09:17:00 EST 2024 Diastolic blood pressure 64 mm[Hg] FriDec 14 09:17:00 EST 2024 Respiratory rate 22 /min FriDec 14 09:1 7:00 EST 2024 Heart rate 58 /min FriDec 14 09:17 :00 EST 2024 Systolic blood pressure 120 mm[Hg] FriJun 09 07:30:00 EDT 2024 Diastolic blood pressure 62 mm[Hg] FriJun 09 07:30:00 EDT 2024 Respiratory rate 16 /min FriJun 09 07:3 0:00 EDT 2024 Heart rate 84 /min FriJun 09 07:30 :00 EDT 2024 Systolic blood pressure 108 mm[Hg] FriApr 20 11:30:00 EDT 2024 Diastolic blood pressure 60 mm[Hg] FriApr 20 11:30:00 EDT 2024 Respiratory rate 20 /min FriApr 20 11:3 0:00 EDT 2024 Heart rate 88 /min FriApr 20 11:30 :00 EDT 2024 Systolic blood pressure 104 mm[Hg] FriFebruary 28 05:45:00 EDT 2024 Diastolic blood pressure 70 mm[Hg] FriFebruary 28 05:45:00 EDT 2024 Respiratory rate 20 /min FriFebruary 28 05:4 5:00 EDT 2024 Heart rate 60 /min FriFebruary 28 05:45 :00 EDT 2024 Systolic blood pressure 102 mm[Hg] FriJan 12 05:00:00 EDT 2024 Diastolic blood pressure 58 mm[Hg] FriJan 12 05:00:00 EDT 2024 Respiratory rate 20 /min FriJan 12 05:0 0:00 EDT 2024 Heart rate 52 /min FriJan 12 05:00 :00 EDT 2024 Reason for Referral
--- NOTE | 2025-06-15 15:15 | XR_ITS ---
PROCEDURE INFORMATION: Exam: XR Chest Exam date and time: 06/15/2025 4:05 PM Age: 74 years old Clinical indication: Shortness of breath; Additional info: Short of breath, copd, abdomen pain TECHNIQUE: Imaging protocol: Radiologic exam of the chest. Views: 1 view. COMPARISON: CT ANGIO CHEST PE PROTOCOL 06/15/2025 4:00 PM FINDINGS: Airway: Airways are patent. Airways are patent. Lungs: Calcified granulomas throughout the lungs are benign. Lung hyperexpansion, favoring COPD. Lung hyperlucency, favoring emphysema. No consolidations. Pleural spaces: No pleural effusions or pneumothorax. Heart/Mediastinum: Stable 3 cm known mediastinal calcified granuloma in the right suprahilar space. No cardiomegaly. Bones/joints: No acute skeletal abnormality or aggressive osseous lesion. Soft tissues: No acute soft tissue findings. IMPRESSION: 1. No acute thoracic pathology. 2. COPD/emphysema.
--- NOTE | 2025-06-15 15:15 | CT_ITS ---
PROCEDURE INFORMATION: Exam: CTA Chest With Contrast Exam date and time: 06/15/2025 4:00 PM Age: 74 years old Clinical indication: Shortness of breath; Additional info: Short of breath, copd TECHNIQUE: Imaging protocol: Computed tomographic angiography of the chest with contrast. Exam focused on the arteries. 3D rendering (Not supervised by radiologist): MIP and/or 3D reconstructed images were created by the technologist. Radiation optimization: All CT scans at this facility use at least one of these dose optimization techniques: automated exposure control; mA and/or kV adjustment per patient size (includes targeted exams where dose is matched to clinical indication); or iterative reconstruction. Contrast material: ISO; Contrast volume: 85 ml; Contrast route: INTRAVENOUS (IV); COMPARISON: CT ANGIO CHEST PE PROTOCOL 07/06/2023 7:28 PM FINDINGS: Pulmonary arteries: The pulmonary arteries are normal in course and caliber. No pulmonary emboli. Aorta: Mild diffuse calcific atherosclerosis of the aorta. No aortic aneurysm. No acute pathology in the aorta. Thyroid: Heterogeneous thyroid gland. Consider follow-up ultrasound in a nonemergent setting. Trachea: Airways are patent. Lungs: Calcified granulomas throughout the lungs are benign. Severe and diffuse centrilobular and paraseptal emphysema, worse in the bilateral upper lobes. Bilateral bronchial wall thickening. Lung hyperexpansion, favoring COPD. No consolidations. No concerning lung nodules. Pleural spaces: No pleural effusions or pneumothorax. Heart: No cardiomegaly. No pericardial thickening or effusion. Coronary arteries: There is severe atherosclerotic calcification of the coronary arteries. Mediastinal space: Scattered calcified granulomas throughout the mediastinum are benign. Lymph nodes: No concerning adenopathy. Diaphragm: Small hiatal hernia. Gallbladder and biliary ducts: Cholecystectomy. Spleen: The spleen demonstrates punctate calcifications, consistent with remote granulomatous organism exposure. Bones/joints: Mild multilevel degenerative changes of the spine. No acute skeletal abnormality or aggressive osseous lesion. Bone demineralization. Soft tissues: No acute soft tissue findings. Other findings: No acute findings in the included upper abdominal organs. IMPRESSION: 1. No pulmonary emboli. 2. Acute/chronic bronchitis or reactive airways disease. 3. Severe emphysema and likely COPD. COMMENTS: The presence of pulmonary emphysema on CT is an independent risk factor for lung cancer. In the absence of a history or active diagnosis of lung cancer, it is recommended that this patient with emphysema be evaluated for enrollment in a low dose CT lung cancer screening program.
--- NOTE | 2025-06-15 15:15 | CT_ITS ---
PROCEDURE INFORMATION: Exam: CT Abdomen And Pelvis With Contrast Exam date and time: 06/15/2025 4:00 PM Age: 74 years old Clinical indication: Abdominal pain TECHNIQUE: Imaging protocol: Computed tomography of the abdomen and pelvis with contrast. 3D rendering (Not supervised by radiologist): MIP and/or 3D reconstructed images were created by the technologist. Radiation optimization: All CT scans at this facility use at least one of these dose optimization techniques: automated exposure control; mA and/or kV adjustment per patient size (includes targeted exams where dose is matched to clinical indication); or iterative reconstruction. Contrast material: ISOVUE; Contrast volume: 80 ml; Contrast route: IV; COMPARISON: CT ABDOMEN PELVIS WO/W CON 07/06/2024 7:48 AM FINDINGS: Lungs: Severe emphysematous changes in the lung bases. Liver: The liver is normal. Gallbladder and biliary ducts: Cholecystectomy. There is no evidence of biliary ductal dilation. Pancreas: Benign fatty infiltration of the pancreas. The pancreas is otherwise unremarkable. Spleen: The spleen demonstrates punctate calcifications, consistent with remote granulomatous organism exposure. The spleen is otherwise unremarkable. Adrenal glands: Adrenal glands have a normal size and morphology. No concerning nodules or masses. Kidneys and ureters: Subcentimeter right renal hypodense lesions are too small to characterize but most probably benign representing cysts. Consider correlation with nonemergent ultrasound. The right kidney is otherwise unremarkable. The left kidney is normal. No hydroureter. Stomach and bowel: Severe constipation. There is no evidence of intestinal obstruction. No bowel thickening. Stomach is decompressed and difficult to evaluate. Duodenum is unremarkable. Appendix: A normal appendix is identified. Intraperitoneal space: There is no evidence of free intraperitoneal or pelvic fluid. No intraperitoneal fluid collections. There is no free intraperitoneal air. Vasculature: Moderate atherosclerotic calcification of the arterial vasculature. No aortic aneurysm. Lymph nodes: No concerning adenopathy. Urinary bladder: The bladder is normal. Reproductive: There has been a hysterectomy. Bones/joints: Bone demineralization. Mild multilevel degenerative changes of the spine. No acute skeletal abnormality or aggressive osseous lesion. Soft tissues: Calcified injection granulomas in the subcutaneous tissues of the buttocks. No acute soft tissue findings. IMPRESSION: 1. No acute abdominopelvic pathology. 2. Incidental findings as above. COMMENTS: Consistent with the [employer]'s Incidental Findings Committee white paper (J Am Michael Radiol 2018): Any incidental renal lesion less than 1 cm or classified as too small to characterize, or any incidental cystic renal lesion characterized as simple-appearing, is likely benign. No follow-up imaging is recommended for these lesions per consensus recommendations based on imaging criteria.
--- OUTSIDE RECORDS SUMMARY | 2025-06-15 15:15 | XMS_ITS | Clinical Summary ---
Author Organization [facility] Address [address] [place] [address] Care Team Providers Care Digital Photographer Name Role Phone Ephraim Lombardo MD Primary Care Provider [phone] Allergies No known active allergies Medications amLODIPine (NORVASC) 5 MG tablet Take 5 mg by mouth Daily. 0 12/15/2018 Active vitamin D (ERGOCALCIFEROL ) 97695 units capsule capsule TAKE ONE CAPSULE 2 TIMES EACH WEEK 2 01/07/2019 Active citalopram (CeleXA) 40 MG tablet Take 40 mg by mouth Daily. Active Cyanocobalamin (VITAMIN B 12 PO) Take by mouth. Active tiotropium bromide-olodate rol (STIOLTO RESPIMAT) 2.5-2.5 MCG/ACT aerosol solution inhaler Inhale 2 puffs Daily. Active aspirin 81 MG chewable tablet Chew 81 mg Daily. Active Psyllium (METAMUCIL) wafer wafer Take by mouth Daily. Active [employer] F[employer]ER GUMMIES PO Take by mouth 2 (Two) Times a Day. Active FLUoxetine (PROzac) 20 MG capsule Take 20 mg by mouth Daily. Active metoprolol tartrate (LOPRESSOR) 25 MG tablet Take 25 mg by mouth Daily. Half tablet daily Active clopidogrel (PLAVIX) 75 MG tablet Take 75 mg by mouth Daily. Active clonazePAM (KlonoPIN) 0.5 MG tablet Take 0.5 mg by mouth 2 (Two) Times a Day As Needed for Seizures. Active Fluticasone-Ume clidin-Vilant (Trelegy Ellipta) 100-62.5-25 MCG/INH aerosol powder Inhale 1 puff Daily. Active pantoprazole (PROTONIX) 40 MG EC tablet Take 40 mg by mouth Daily. Active azithromycin (ZITHROMAX) 250 MG tablet Take 250 mg by mouth Daily. Mon,wed,frid ay Active losartan (COZAAR) 25 MG tablet Take 25 mg by mouth Daily. Active atorvastatin (LIPITOR) 10 MG tablet Take 10 mg by mouth Daily. Active Active Problems Problem Noted Date Diagnosed Date Bilateral carotid artery stenosis 02/04/2019 Immunizations Immunization Administration Dates Next Due COVID-19 (PFIZER) Purple Cap Monovalent 01/10/20 21,12/19/2020 Family History Medical History Relation Name Comments Heart attack Father Heart disease Father Heart failure Mother Relation Name Status Comments Father Mother Social History Tobacco Use Types Packs/Day Years Used Date Smoking Tobacco: Every Day Cigarettes 1 53 Smokeless Tobacco: Never Alcohol Use Standard Drinks/Week Comments No 0 (1 standard drink = 0.6 oz pur e alcohol) AUDIT-C Answer Date Recorded Frequency of Alcohol Consumption Never 02/02/2019 Average Number of Drinks Not on file 019 Frequency of Binge Drinking Not on file 06/2019 Abuse Screen Answer Date Recorded Unsafe at Home or Work/School Not on file Feels Threatened by Someone? Not on file 06/2023 Does Anyone Keep You from Co ntacting Others or Doint Things Outside the Home? Not on file 08/04/2023 Physical Sign of Abuse Present Not on file 1 Housing Stability Answer Date Recorded Current Living Arrangements Not on file 06/2023 Potentially Unsafe Housing Conditions Not on daniella e 08/04/2023 Family and Community Support Answer Florin e Recorded Help with Day-to-Day Activities Not on file 08/04/2023 Lonely or Isolated Not on file 08/04/2023 Employment Answer Date Recorded Do you want help finding or keeping work or a alessio b? Not on file 08/04/2023 Disabilities Answer Date Recorded Concentrating, Remembering, or Making Decisions Difficulty Not on file 08/04/2023 Doing Errands Independently Difficulty Not on fi le 08/04/2023 Education Answer Date Recorded Help with school or training? 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 Not on file Not on file Last Filed Vital Signs Vital Sign Reading Time Taken Comments Blood Pressure 159/73 06/21/2020 10:22 AM EDT Pulse 60 06/21/2020 10:22 AM EDT Temperature 36.7 C (98 F) 06/21/2020 10:22 AM EDT Respiratory Rate - - Oxygen Saturation 99% 06/21/2020 10:22 AM EDT Inhaled Oxygen Concentration - - Weight 83 kg (183 lb) 06/21/2020 10:22 AM EDT Height 175.3 cm (5' 9 ) 06/21/2020 10:22 AM EDT Body Mass Index 27.02 06/21/2020 10:22 AM EDT Plan of Treatment Health Maintenance Due Date Last Done Comments DXA SCAN 1952 TDAP/TD VACCINES (1 - Tdap) 1971 MAMMOGRAM 1992 COLOGUARD 1997 COLON CANCER SCREENING 5 YEA R SIGMOIDOSCOPY 1997 COLONOSCOPY 1997 [address] CANCER SCREENING 1997 CT COLONOGRAPHY 1997 FECAL OCCULT BLOOD TEST 1997 FIT Testing (1 year) 1997 Pneumococcal Vaccine 50+ (1 of 1 - PCV) 2002 ZOSTER VACCINE (1 of 2) 2002 ANNUAL PHYSICAL 02/03/2019 HEPATITIS C SCREENING 02/03/2019 COVID-19 Vaccine ( season) 2024, 12/19/2020 INFLUENZA VACCINE 07/27/2025 09/08/2020, , 08/27/2018 Insurance MEDICARE A & B [facility] [employer] [facility] SUP Care Teams Digital Photographer Relationship Specialty Start Date End Date Ephraim Lombardo MD [address] [facility] [address] [place] [address] PCP - General Adolescent Medicine 01/12/19
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
--- NOTE | 2025-06-15 15:17 | ECG_ITS ---
APPROVED REPORT Exam: Resting ECG HR:83 bpm ECG Measurements Heart Rate 83 AXES SC 156 P 66 QRSd 83 QRS 74 QT 384 T 67 QTc 424 Conclusion SINUS RHYTHM MODERATE ST DEPRESSION [0.05+ mV ST DEPRESSION] ABNORMAL ECG UNCONFIRMED REPORT Electronically signed by : Lio Tsai, 06/15/2025 15:35:47
[2025-06-15 15:32] LABS: Hematocrit 35.1 % (37.0-47.0); Hemoglobin 11.3 g/dL (12.2-16.2); Immature Granulocytes % 0.7 %; Mean Corpuscular HGB Conc 32.2 g/dL (31.8-35.4); Mean Corpuscular Hemoglobin 28.7 pg (27.0-31.2); Mean Corpuscular Volume 89.1 fl (81-99); Nucleated Red Blood Cells % 0 %; Platelet Count 223 K/mm3 (142-424); Red Blood Count 3.94 M/mm3 (4.20-5.40); Red Cell Distribution Width-SD 41.2 fL; White Blood Count 8.6 K/mm3 (4.8-10.8)
[2025-06-15] MEDS: MAGNESIUM SULFATE IN WATER 2 GM/50 ML PIGGYBACK IV (15:37)
[2025-06-15 15:45] LABS: Alanine Aminotransferase 16 U/L (12-78); Albumin Level 3.6 g/dl (3.5-5.0); Albumin/Globulin Ratio 1.5 (1.1-1.8); Alkaline Phosphatase 106 U/L (38-126); Anion Gap 12.3 mEq/L (5-15); Aspartate Amino Transferase 34 U/L (14-36); Bilirubin,Total 0.6 mg/dl (0.2-1.3); Blood Urea Nitrogen 11 mg/dl (7-17); Calcium 8.8 mg/dl (8.4-10.2); Carbon Dioxide 32 mmol/L (22.0-30.0); Chloride 97 mmol/L (98-107); Creatinine Clearance Estimated 58 mL/min (50-200); Creatinine,Serum 0.90 mg/dl (0.52-1.04); Estimated Glomerular Filt Rate 62 ml/min (>60); GFR (African American) 74 ML/MIN (>60); Globulin 2.4 g/dL (1.3-3.2); Glucose 109 mg/dl (74-100); Lipase 29 U/L (23-300); Magnesium 1.5 mg/dl (1.6-2.3); Potassium 4.3 mmoL/L (3.5-5.1); Sodium 137 mmol/L (136-145); Total Protein,Serum 6.0 g/dl (6.3-8.2)
[2025-06-15 15:45] LABS: Coronavirus 19, PCR Not Detected (NotDetected); Influenza A, PCR Not Detected (NotDetected); Influenza B, PCR Not Detected (NotDetected)
[2025-06-15 15:46] LABS: Lactate Venous 1.5 mmol/L (0.4-2.0); VBG HCO3 31.2 mmol/L (23-30); VBG PH 7.35 mmol/L (7.31-7.41); VBG PO2 53.9 mmol/L (28-40)
[2025-06-15 15:49] LABS: D-Dimer 1.18 ug/mL (0.0-0.5)
[2025-06-15 15:50] LABS: VBG PCO2 58.5 mmol/L (35-51)
[2025-06-15 15:57] LABS: NT Pro Brain Natriuretic Pep. 1270 pg/mL (0-125)
[2025-06-15] MEDS: 0.9 % SODIUM CHLORIDE 50 ML VIAL IV (16:01)
[2025-06-15] MEDS: IOPAMIDOL-370 (76%);100ML BOTTLE 80 ML IV (16:01)
[2025-06-15] MEDS: SODIUM CHLORIDE 0.9% 10ML SYR (RAD ONLY) 10 ML IV (16:01)
[2025-06-15 16:08] LABS: Troponin I 0.01 ng/ml (0.00-0.034)
[2025-06-15] MEDS: IPRATROPIUM/ALBUTEROL 3 ML NEB 9 ML IH (16:50)
[2025-06-15] MEDS: ALBUTEROL 0.083% 2.5 MG/3 ML NEB 20 MG IH (17:32)
[2025-06-15] MEDS: METHYLPREDNISOLONE SOD SUCC 125MG VIAL 125 MG IV (17:33)
[2025-06-15 18:42] LABS: Troponin I 0.02 ng/ml (0.00-0.034)
== END 2025-06-15 19:26 | disposition home or self-care (01) ==
PROVIDERS: Nurse Practitioner; Emergency Provider Student in an Organized Health Care Education/Training Program; PCP Internal Medicine Adolescent Medicine
DX: J44.1 Chronic obstructive pulmonary disease with (acute) exacerbation (principal); Z87.891 Personal history of nicotine dependence; Z99.81 Dependence on supplemental oxygen
CPT/HCPCS: 71045; 71275; 74177; 80053; 82803; 83690; 83735; 83880; 84484; 85025; 85378; 87636; 93005; 96365; 96375; 99285; J2919; J3475; Q9967

== ENCOUNTER 2025-07-15 09:50 | Emergency (ER) | payer OTHER, MEDICARE, SELFPAY ==
--- OUTSIDE RECORDS SUMMARY | 2025-05-26 07:30 | XMS_ITS ---
Author Organization [facility] D JOSE Address [address] [place] [address] Care Team Providers Care Chemotherapist Name Role Phone Ephraim Lombardo Primary Care Provider [phone] REASON FOR VISIT AWV & ck up Encounters Encounter Location Date Provider Diagnosis [facility] [address] [address] 05/26/2025 Ephraim Lombardo Plan Of Treatment Next Appt Details Provider Name:Ephraim Lombardo, 07/26/2025 11:00:00 AM, [address] [place] [address], [phone], Progress Notes * Shayy BLACK LDOB:1950 (75 yo F)Acc No.[id number]:05/26/2025 Progress notes Patient: Titus Shayy KUMAR Provider: Natanael Lombardo MD :1950 A ge:74 Y S ex:Female Date:05/26/2025 Address:[address] [place] [address] [id number] Subjective: * Chief Complaints: * 1 . AWV & ck up. * Medical History: Objective: * Vitals: Assessment: Plan: * Treatment: * * Electronic signature of Hong Lombardo MD FAAP on 07/15/2025 at 10:01 AM EDT Sign off status: Pending * Provider: Natanael Lombardo MD Date: 0 05/26/2025 Generated for Ramírez mak/Marlena/Avelina on: 0 07/15/2025 10:01 AM EDT
[2025-07-15] VITALS (7 sets, daily range): BP systolic 136–194; BP diastolic 42–84; PULSE 65–77; RESP 17–24; TEMP 37.1; O2SAT 90–98; BMI 22.8
--- NOTE | 2025-07-15 09:54 | ECG_ITS ---
APPROVED REPORT Exam: Resting ECG HR:87 bpm ECG Measurements Heart Rate 87 AXES QRSd 78 QRS 66 QT 358 T 97 QTc 403 Conclusion ATRIAL FIBRILLATION NONSPECIFIC ST & T-WAVE ABNORMALITY ABNORMAL RHYTHM ECG UNCONFIRMED REPORT Electronically signed by : Lio Tsai, 07/15/2025 16:38:26
--- OUTSIDE RECORDS SUMMARY | 2025-07-15 10:02 | XMS_ITS | Clinical Summary ---
Author Organization [facility] Address [address] [place] [address] Care Team Providers Care Geneticist Name Role Phone Ephraim Lombardo MD Primary Care Provider [phone] Allergies No known active allergies Medications amLODIPine (NORVASC) 5 MG tablet Take 5 mg by mouth Daily. 0 12/15/2018 Active vitamin D (ERGOCALCIFEROL ) 90079 units capsule capsule TAKE ONE CAPSULE 2 [...] ANNUAL PHYSICAL 02/03/2019 HEPATITIS C SCREENING 02/03/2019 INFLUENZA VACCINE 05/27/2025 09/08/2020, , 08/27/2018 COVID-19 Vaccine ( season) 2025, 12/19/2020 Insurance MEDICARE A & B [facility] [employer] [facility] SUP Care Teams Geneticist Relationship Specialty Start Date End Date Ephraim Lombardo MD [address] [facility] [address] [place] [address] PCP - General Adolescent Medicine 01/12/19
--- OUTSIDE RECORDS SUMMARY | 2025-07-15 10:03 | XMS_ITS | Patient Health Record ---
Author Organization [facility] D JOSE Address [address] [place] [address] Care Team Providers Care Chemical Machine Tender Name Role Phone Ephraim Lombardo Primary Care Provider [phone] Migration, Provider Unavailable Unavailable Allergies No Known Allergies Results Component Value Reference Range Notes M-Comprehensive Metabolic Pa jean Reviewed date:03/23/2025 04:42:39 PM Interpretation: Performing Lab: Notes/Report: CALL [id number] WITH CRITICALS NA 137 136-145 mmol/L K [...] AGRATIO 1.7 1.1-1.8 ALP 64 38-126 U/L H-VITB12 Reviewed date:12/07/2024 10:45:43 AM Interpretation: Performing Lab: Notes/Report: VITB12 738 239-931 pg/mL H-TVITD Reviewed date:12/07/2024 10:45:50 AM Interpretation: Performing Lab: Notes/Report: TVITD 30.4 30-100 ng/mL Deficient <20 ng/mL Insufficient 20-30 ng/mL Sufficient 30-100 ng/mL Potential Toxicity >100 ng/mL M-Magnesium Reviewed date:12/22/2024 04:13:19 PM Interpretation: Performing Lab: Notes/Report: MG 1.7 1.6-2.3 mg/dl M-Comprehensive Metabolic Pa jean Reviewed date:12/22/2024 04:13:19 [...] AGRATIO 1.9 1.1-1.8 ALP 78 38-126 U/L M-Complete Blood Count Auto Diff Reviewed date:12/22/2024 [...] 0.1 0.0-0.4 K/mm3 BA# 0.0 0-0.2 K/mm3 Rapid Covid/Flu A-B Combo Reviewed date:11/23/2024 04:08:24 PM Interpretation: Performing Lab: Notes/Report: Rapid Covid neg Flu A neg Flu B neg Rapid Covid/Flu A-B Combo Reviewed date:10/21/2024 04:50:01 PM Interpretation: Performing Lab: Notes/Report: Rapid Covid eg Flu A neg Flu B neg Medications Medication SIG (Take, Route, Frequency, Duration) Notes Start Date End Date Status Senna 8.6 MG 1 tab(s) orally once a day (at bedtime) prn Active Spironolactone 25 MG 1/2 tab orally once a day Active Aspirin 81 MG 1 tab(s) orally once a day; Duration: 30 day(s) Active Budesonide 0.5 MG/2ML 2 ml by [...] e-prescription and drug interaction check* 08/02/2024 Active clonazePAM 0.5 MG 1 tab(s) orally twice a day; Duration: 30 days 11/07/2024 Active Acyclovir 800 MG 1 tab(s) orally 3 times a day; Duration: 7 days prn 04/21/2024 Active NexIUM 40 MG 1 cap(s) orally twice a day; Duration: 90 days Active Morphine Sulfate (Concentrate) 20 MG/ML 0.5 mL orally three times daily; Duration: 30 days 12/10/2024 Active Magnesium 400MG 1 TABLET ONCE A DAY *Please revi ew and pick correct strength-formulat ion from [employer]wo[employer] options. If intended option is not shown, discontinue and re-order from Quick Search* Active Atorvastatin Calcium 40 MG 1 tab(s) orally once a day; Duration: 90 days Active predniSONE 10 MG 1-2 tabs orally daily; Duration: 30 days As needed Active Azithromycin 250 MG 1 tab oral on MON , Wed, Fri Active Cimetidine 200 MG 1 tab(s) orally 3 times a day Active IBEROGAST SOFTGELS TWICE A DAY *Please revie w for potential replacement for e-prescription and drug interaction check* Active Cholecalciferol 25 MCG 1 TAB(S) ORALLY ONCE A DAY *Please review and pick correct strength-formulat ion from [employer] options. If intended option is not shown, discontinue and re-order from Quick Search* Active Biotin 09435 MCG 1 TAB(S) ORALLY ONCE A DAY *Please review and pick correct strength-formulat ion from [employer] options. If intended option is not shown, discontinue and re-order from Quick Search* Active Nitroglycerin 0.4 MG 1 tab(s) sublingually every 5 minutes; Duration: 30 days 01/08/2022 Active OXYGEN 2 LITERS DIRECTED DAILY DX: COPD *Plea se review for potential replacement for e-prescription and drug interaction check* 09/18/2021 Active Immunizations Vaccine Route Administration Date Status Comme nts Adacel (Tdap) Unknown 04/30/2010 Administered Covid Pfizer Unknown 12/19/2020 Administered Covid Pfizer Unknown 01/09/2021 Administered Covid Pfizer Unknown 06/28/2021 Administered Fluvirin--Influenza vaccine 3+ year Unknown 09/09/2007 Administered Fluvirin--Influenza vaccine 3+ year Unknown 08/24/2008 Administered Fluvirin--Influenza vaccine 3+ year Unknown 07/31/2009 Administered Fluvirin--Influenza vaccine 3+ year Unknown 08/31/2010 Administered Fluvirin--Influenza vaccine 3+ year IM Intramuscular 08/23/2011 Administered Fluvirin--Influenza vaccine 3+ year Unknown 07/31/2012 Administered Fluzone High Dose IM Intramuscular 09/07/2019 Administered Fluzone High Dose IM Intramuscular 09/08/2020 Administered Fluzone High Dose IM Intramuscular 09/06/2021 Administered H1N1 Vaccine IM Intramuscular 08/18/2009 Administered Influenza-Fluzone 3+years (NON-MEDICARE) IM Intramuscular 08/29/2015 Administered Pneumovax-23 (pneumococccal vaccine polyvalent)2 years or older Unknown 07/14/2014 Administered PPD SC Subcutaneous 06/13/2011 Administered SHINGRIX IM Intramuscular 07/08/2023 Administered Fluzone High Dose IM Intramuscular 08/03/2024 Administered Fluzone High Dose IM Intramuscular 09/02/2023 Administered Fluzone High Dose IM Intramuscular 07/23/2022 Administered Fluvirin--Influenza vaccine 3+ year IM Intramuscular 08/22/2014 Administered Fluvirin--Influenza vaccine 3+ year Unknown 08/30/2013 Administered SHINGRIX IM Intramuscular 08/03/2024 Administered Prevnar PCV-20 (Pneumococcal conjugate 20) IM Intramuscular 01/13/2024 Administered Fluzone High Dose IM Intramuscular 08/27/2018 Administered Influenza-Fluzone 3+years (NON-MEDICARE) IM Intramuscular 08/13/2016 Administered Social History Tobacco Use: Social History Observation Description Date Details (start date - stop date) Former Smoker NA - NA Smoking: Question Answer Notes Are you a: former smoker How long has it been since you last smoked? 1-3 months Problems Problem Type SNOMED Code ICD Code Onset Dates Problem Status W/U Status Risk Notes Problem Hypomagnesemia (377632197) Hypomagnesemia (E83.42) Active confirmed Problem Generalized anxiety disorder (71523931) Generalized anxiety disorder (F41.1) Active confirmed Problem Hypertensive heart failure (01469504) Hypertensive heart disease with heart failure (I11.0) Active confirmed Problem Acute non-ST segment elevation myocardial infarction (907798589) Non-ST elevation (NSTEMI) myocardial infarction (I21.4) Active confirmed Problem Unstable angina co-occurrent and due to coronary arteriosclerosis (97904362776206647) Atherosclerotic heart disease of [place] coronary artery with unstable angina pectoris (I25.110) Active confirmed Problem Ischemic cardiomyopathy (003339909) Ischemic cardiomyopathy (I25.5) Active confirmed Problem Acute systolic heart failure (350734461) Acute systolic (congestive) heart failure (I50.21) Active confirmed Problem Acute on chronic systolic heart failure (637784071) Acute on chronic systolic (congestive) heart failure (I50.23) Active confirmed Problem Acute on chronic combined systolic and diastolic heart failure (820055464066131) Acute on chronic combined systolic (congestive) and diastolic (congestive) heart failure (I50.43) Active confirmed Problem Carotid artery occlusion (806295860) Occlusion and stenosis of unspecified carotid artery (I65.29) Active confirmed Problem Simple chronic bronchitis (36777328) Simple chronic bronchitis (J41.0) Active confirmed Problem Panlobular emphysema (7190609) Panlobular emphysema (J43.1) Active confirmed Problem Chronic respiratory failure (86156685) Chronic respiratory failure, unspecified whether with hypoxia or hypercapnia (J96.10) Active confirmed Problem Fibromyalgia (550823969) Fibromyalgia (M79.7) Active confirmed Problem Long-term current use of antithrombotic (060719119259356) MCFP (current) use of antithrombotics/an tiplatelets (Z79.02) Active confirmed Problem Presence of coronary angioplasty implant and graft (Z95.5) Active confirmed Problem Dependence on supplemental oxygen (300659680407) Dependence on supplemental oxygen (Z99.81) Active confirmed Problem Vitamin D deficiency (08484061) Vitamin D deficiency (E55.9) Active confirmed Problem Hyperlipidemia (11514386) Hyperlipidemia (E78.5) Active confirmed Problem Hyperlipidemia (52604581) Hyperlipemia, idiopathic familial (E78.5) Active confirmed Problem Essential hypertension (41556742) Hypertension, essential (I10) Active confirmed Problem Acute exacerbation of chronic obstructive airways disease (663238821) COPD exacerbation (J44.1) Active confirmed Problem Systolic heart failure (149927379) Systolic CHF with reduced left ventricular function, NYHA class 3 (I50.20) Active confirmed Problem Gastroesophageal reflux disease without esophagitis (243410959) Gastroesophageal reflux disease without esophagitis (K21.9) Active confirmed Problem Atherosclerosis of coronary artery without angina pectoris (409978967009857) Atherosclerosis of [place] coronary artery of [place] heart without angina pectoris (I25.10) Active confirmed Problem Memory loss (67891146) Memory loss (R41.3) Active confirmed Problem Dysthymia (22030452) Dysthymia (F34.1) Active confirmed Problem Recurrent sinusitis (707660098) Recurrent sinusitis (J32.9) Active confirmed Problem Mood disorder (48812699) Mood disorder (F39) Active confirmed Problem Carotid artery stenosis (49633229) Carotid stenosis (I65.29) Active confirmed Problem Anxiety state (333843803) Acute anxiety (F41.9) Active confirmed Problem Atherosclerosis of both carotid arteries (042962910896393) Atherosclerosis of both carotid arteries (I65.23) Active confirmed Problem Carotid artery occlusion (534277893) Stenosis of carotid artery, unspecified laterality (I65.29) Active confirmed Problem Recurrent major depression in remission (26825790) Recurrent major depressive disorder, in partial remission (F33.41) Active confirmed Problem Atherosclerotic heart disease of [place] coronary artery without angina pectoris (712934505265167) Atherosclerotic heart disease (I25.10) Active confirmed Problem Mixed hyperlipidemia (086234476) Hyperlipemia, mixed (E78.2) Active confirmed Problem Malignant neoplasm of skin (disorder) (504344165) Skin carcinoma (C44.99) Active confirmed Problem Chronic obstructive pulmonary disease (50569197) End stage COPD (J44.9) Active confirmed Problem Solitary sacroiliitis (723261331) SI (sacroiliac) joint inflammation (M46.1) Active confirmed Problem Rotator cuff tear arthropathy (989005818) Rotator cuff tear arthropathy (M12.819) Active confirmed Problem Malignant hypertensive chronic kidney disease (413703048878112) Hypertensive chronic kidney disease w stg 1-4/unsp chr kdny (I12.9) Active confirmed Problem Dependence on supplemental oxygen (365045437867) Oxygen dependent (Z99.81) Active confirmed Problem Irritable bowel syndrome characterized by constipation (171444179) Irritable bowel syndrome with constipation (K58.1) Active confirmed Problem Old myocardial infarction (4815879) History of [place] (myocardial infarction) (I25.2) Active confirmed Problem Chronic renal failure syndrome (76558012) Chronic kidney disease, unspecified CKD stage (N18.9) Active confirmed Problem Atherosclerotic heart disease of [place] coronary artery without angina pectoris (647801858737052) Atherosclerosis of [place] coronary artery without angina pectoris, unspecified whether [place] or transplanted heart (I25.10) Active confirmed Problem Mild major depression, single episode (85847873) Current mild episode of major depressive disorder without prior episode (F32.0) Active confirmed Problem Left hemiplegia (740304374) Left hemiplegia (G81.94) Active confirmed Problem Occlusion and stenosis of multiple and bilateral cerebral arteries (281880017) Calcification of both carotid arteries (I65.23) Active confirmed Problem Stenosis of left vertebral artery (322739166) Stenosis of left vertebral artery (I65.02) Active confirmed Problem Chronic hypoxemic respiratory failure (817640141) Chronic hypoxemic respiratory failure (J96.11) Active confirmed Problem Panacinar emphysema (8109313) 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) Active confirmed Problem Atrophic gastritis (14077653) Chronic gastritis, presence of bleeding unspecified, unspecified gastritis type (K29.50) Active confirmed Vital Signs Heart Rate 50 /min 07/12/2025 Temperature 98 degrees Fahrenheit 07/12/2025 Oximetry 94 10/21/2024 94 % on 4L Blood pressure diastolic 62 mm Hg 07/12/2025 Height 68 in 07/12/2025 Blood pressure systolic 115 mm Hg 07/12/2025 Weight 155 lbs 07/12/2025 BMI 23.57 kg/m2 07/12/2025 Encounters Encounter Location Date Provider Diagnosis [facility] [address] [place] [address] 01/29/[facility] [address] [address] 08/03/2024 Ephraim Lombardo COPD with chronic bronchitis J44.9 ; Dysthymia F34.1 ; Immunization(s) administered Z23 and Encounter for immunization Z23 [facility] [address] [address] 09/14/2024 Ephraim Lombardo COPD exacerbation J44.[address] [place] [address] [address] 10/21/2024 Ephraim Lombardo Shortness of breath R06.[address] [place] [address] [address] 10/26/2024 Ephraim Lombardo Chronic respiratory failure, unspecified whether with hypoxia or hypercapnia J96.10 and Shortness of breath R06.02 [facility] [address] [address] 11/16/2024 Ephraim Besson COPD with chronic bronchitis J44.[address] [place] [address] 11/23/2024 Ephraimtushar Lombardo Subacute cough R05.2 and COPD exacerbation J44.[address] [place] [address] 12/09/2024 Ephraim Besson End stage COPD J44.9 ; Systolic CHF with reduced left ventricular function, NYHA class 3 I50.20 ; Generalized anxiety disorder F41.1 ; Recurrent major depressive disorder, in partial remission F33.41 and Hospital discharge follow-up Z09 [facility] [address] [address] 01/13/2025 Ephraimtushar Lombardo Atypical chest pain R07.89 ; Systolic CHF with reduced left ventricular function, NYHA class 3 I50.20 ; Chronic respiratory failure, unspecified whether with hypoxia or hypercapnia J96.10 ; Skin tear of left upper arm without complication, initial encounter S41.112A and Hospital discharge follow-up Z09 [facility] [address] [address] 03/15/2025 Ephraim Besson End stage COPD J44.9 ; Systolic CHF with reduced left ventricular function, NYHA class 3 I50.20 ; Mood disorder F39 and Dizziness R42 [facility] [address] [address] 04/21/2025 Ephraim Besson COPD exacerbation J44.1 and Current mild episode of major depressive disorder without prior episode F32.0 [facility] [address] [address] 05/05/2025 Ephraim Besson End stage COPD J44.9 and Recurrent major depressive disorder, in partial remission F33.[address] [address] 07/12/2025 Ephraim Besson Other dysphagia R13. 19 ; Chronic hypoxemic respiratory failure J96.11 ; History of esophageal stricture Z87.19 ; Systolic CHF with reduced left ventricular function, NYHA class 3 I50.20 and Routine medical exam Z00.00 [facility] [address] [facility] [address] [facility] [address] [place] [address], [place] [address] 08/02/2024 Ephraim Besson [facility] [address] [facility] [address] [place] [address] 09/09/2024 Ephraim Besson [facility] [address] [place] [address] 09/13/2024 Ephraim Besson [facility] [address] [place] [address] 10/26/2024 Ephraim Besson [facility] [address] [place] [address] 11/02/2024 Ephraim Besson [facility] [address] [place] [address] 11/16/2024 Ephraim Besson Panacinar emphysema J43.1 [facility] [address] [place] [address] 12/07/2024 Ephraim Besson [facility] [address] [place] [address] 12/20/2024 Ephraim Besson [facility] [address] [place] [address] 12/22/2024 Ephraim Besson COPD with chronic bronchitis J44.9 and Hypomagnesemia E83.42 [facility] [address] [place] [address] 01/03/2025 Ephraim Besson [facility] [address] [place] [address] 03/16/2025 Ephraim Besson [facility] [address] [facility] [place] [address] 04/07/2025 Ephraim Besson [facility] [address] [place] [address] 05/24/2025 Ephraim Besson [facility] 2017 [facility] [address] [place] [address] 05/27/2025 Ephraim Besson [facility] [address] [place] [address] 06/06/2025 Ephraim Besson [facility] [address] [place] [address] 06/15/2025 Ephraim Lombardo [facility] [address] [place] [address] 06/15/2025 Ehpraim Lombardo [facility] [address] [place] [address] 06/21/2025 Ephraim Lombardo [facility] [address] [place] [address] 06/29/2025 Ephraim Lombardo COPD exacerbation J44.1 Assessments Encounter Date Diagnosis (ICD Code) Assessment Notes Treatment Notes Treatment Clinical Notes Section Notes 11/16/2024 COPD with chronic bronchitis (ICD-10 - J44.9) Continue current therapy for end-stage lung disease. Is still very active. Roxanol has helped her be more active and will continue this. Using it appropriately. Follow-up 4 weeks. 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 She is really not far off from hospice referral. She is familiar with this organization as her sister use this and does not wish to use this at this point 11/16/2024 Panacinar emphysema (ICD-10 - J43.1) 11/23/2024 Subacute cough (ICD-10 - R05.2) 11/23/2024 COPD exacerbation (ICD-10 - J44.1) Discussed the etiology and expected course of COPD exacerbation. Discussed the rationale for antibiotics use and the importance of completeing the prescription as prescribed. Discussed supportive care. Discussed the signs and symptoms of worsening infection that may indicate need for reassement in clinic/ED. 12/09/2024 End stage COPD (ICD-10 - J44.9) [...] diuretics but currently seems very volume balanced 12/09/2024 Systolic CHF with reduced left ventricular function, NYHA class 3 (ICD-10 - I50.20) See notes above, diastolic dysfunction with evidence of right heart failure, continue diuretics as indicated 08/03/2024 COPD with chronic bronchitis (ICD-10 - J44.9) Overall stable. Remains on oxygen. Remains on nebulizers. Administer flu and shingles today. Arexvy at pharmacy. 08/03/2024 Dysthymia (ICD-10 - F34.1) Mood seems [...] times daily, follow-up 4 to 5 weeks 12/22/2024 COPD with chronic bronchitis (ICD-10 - J44.9) 12/22/2024 Hypomagnesemia (ICD-10 - E83.42) 01/13/2025 Atypical chest pain (ICD-10 - R07.89) Reviewed notes from ER, reviewed recent orthopedic visit. No medicine changes. Seems much more comfortable. 01/13/2025 Systolic CHF with reduced left ventricular function, NYHA class 3 (ICD-10 - I50.20) Stable weight. Stable oxygen status. Is doing Bumex therapy when she feels like she needs it. Does not want to get too dehydrated. Currently seems euvolemic 04/21/2025 COPD exacerbation (ICD-10 - J44.1) Not [...] issues that they have been having. 05/05/2025 End stage COPD (ICD-10 - J44.9) Overall seems to be improved since last visit. No changes in plan at this point. Continue prednisone, antibiotics are there for her. Continues to follow with hospice. They have been a good support for 05/05/2025 Recurrent major depressive disorder, in partial remission (ICD-10 - F33.41) Overall doing well on fluoxetine. No changes in plan 06/29/2025 COPD exacerbation (ICD-10 - J44.1) 07/12/2025 Other dysphagia (ICD-10 - R13.19) Given patient history and ongoing symptoms needs evaluation. She is willing to do a modified barium swallow, this will be ordered. I will review this personally. Will also do an esophagram to see if this has distal stricture issues 07/12/2025 Chronic hypoxemic respiratory failure (ICD-10 - J96.11) Overall seems pretty stable. Seems a bit more alert than normal. Using Roxanol as needed, on nebs. Following with hospice. I reviewed hospice documentation. 03/15/2025 End stage COPD (ICD-10 - J44.9) [...] to follow w/hospice and defers labs today 03/15/2025 Systolic CHF with reduced left ventricular function, NYHA class 3 (ICD-10 - I50.20) -Pt self dc'd [place] and metop; given end stage COPD and [...] w/SSRI discontinuation may have been at play 07/12/2025 History of esophageal stricture (ICD-10 - Z87.19) Esophagram as notedEsophagram as above, may need endoscopy if abnormal 01/13/2025 Chronic respiratory failure, unspecified whether with hypoxia or hypercapnia (ICD-10 - J96.10) On oxygen, nebs. Continues to follow with hospice at home. Stable 10/26/2024 Shortness of breath (ICD-10 - R06.02) End-stage emphysema. Continue current therapy. Continue oxygen therapy at home. 12/09/2024 Generalized anxiety disorder (ICD-10 - F41.1) On clonazepam and Prozac 08/03/2024 Immunization(s) administered (ICD-10 - Z23) 08/03/2024 Encounter for immunization (ICD-10 - Z23) [...] move around under her own power and agricultural pilot her motorized scooter back to her car with assistance 07/12/2025 Systolic CHF with reduced left ventricular function, NYHA class 3 (ICD-10 - I50.20) Volume status seems adequate. No evidence of volume overload 03/15/2025 Dizziness (ICD-10 - R42) -Last week woke up early, felt come fogginess and tried to go to restrom but felt like she was bouncing down the ya , light-headed, confused, resolved after sitting still for a bit -Stable O2 requirements that night, no hx of CO2 narcosis, was not associated w/recent ocean transportation intermediary -notes recent discontinuation of multiple meds -R arm tingling off and on since falling spell -Exam non focal, benign -No timothy evidence of neuro involvement- 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 07/12/2025 Routine medical exam (ICD-10 - Z00.00) Has had appropriate cancer screening. Will get flu shot a month. Reviewed hospice notes. Patient maintains hospice and DNR status. Non-smoker Other vaccines up-to-date. Word recall 12/27. HRA reviewed 01/13/2025 Hospital discharge follow-up (ICD-10 - Z09) [...] - Screening 1 EKG : In House 05/12/2007 EKG : In House 11/13/2011 Physical Therapy 05/05/2017 Physical Therapy 12/06/2011 Pulmonary [...] TEST 12/03/2014 C-SPUTUM CULTURE 09/17/2019 C-URINE CULTURE 04/06/2020 C-URINE CULTURE 07/26/2021 Urine Culture, Routine 06/03/2016 M-Complete Blood Count Auto Diff 022 M-Basic Metabolic Panel 01/03/2022 M-BUN & Creatinine 07/27/2021 M-Diarrhea Panel, PCR 04/19/2022 M-Vitamin B12 04/10/2021 M-Vitamin D 25 Hydroxy 04/10/2021 M-COVID 19 PCR SEND OUT 07/28/2020 MODIFIED BARIUM SWALLOW 07/12/2025 ESOPHAGRAM 07/12/2025 Future Test Test Name Order Date CTA : Carotids, With & Without Contrast 11/06/2015 Next Appt Details Provider Name:Ephraim Mendoza Munira, 07/26/2025 11:00:00 AM, [address], [address], Insurance Providers Payer Name Payer Address Payer Phone Subscriber Number Group Number Insured Name Patient Relationship to Insured Coverage Start Date Coverage End Date MEDICARE PART B [address] [address] [place] [phone] [id number] Shayy Black Self - patient is the insured 7 [employer] [facility] [address] [address] [place] [address] [id number] Shayy Black Self - patient is the insured 7 [id number] [facility] [address] [place] [address] ACL Shayy Black Self - patient is the insured Medications Administered Medication Instructions Date of Administration Dosage Notes Ceftriaxone 500 09/22/2013 500 mg Ceftriaxone 500 11/30/2013 500 mg Ceftriaxone 500 09/01/2014 500 Ceftriaxone 500 10/13/2014 500 ug Ceftriaxone 500 01/19/2015 500 mg Ceftriaxone 500 06/03/2016 500 mg Ceftriaxone 500 10/01/2016 500 Ceftriaxone 500 02/27/2017 500 mg Ceftriaxone 500 06/09/2018 500 Ceftriaxone 500 10/15/2018 1000 mg Ceftriaxone 500 04/01/2019 1 g Ceftriaxone 500 09/17/2019 1 g Ceftriaxone 500 01/18/2021 500 mg Ceftriaxone 500 04/10/2021 500 mg Ceftriaxone 500 07/17/2021 500 mg Ceftriaxone 500 10/02/2021 500 mg Ceftriaxone 500 11/23/2021 500 mg Ceftriaxone 500 10/24/2022 500 mg Ceftriaxone 500 06/10/2023 500 mg Ceftriaxone 500 08/05/2023 500 mg Ceftriaxone 500 04/06/2024 500 mg Ceftriaxone 500 05/11/2024 500 mg Ceftriaxone 500 09/14/2024 500 mg Cyanocobalamin/B-12 Pt's Own Medication 04/27/2013 Cyanocobalamin/B-12 Pt's Own Medication 05/05/2013 given by Eliceo Kelley Cyanocobalamin/B-12 Pt's Own Medication 05/11/2013 Cyanocobalamin/B-12 Pt's Own Medication 05/18/2013 Cyanocobalamin/B-12 Pt's Own Medication 05/25/2013 Cyanocobalamin/B-12 Pt's Own Medication 06/02/2013 Cyanocobalamin/B-12 Pt's Own Medication 06/08/2013 Cyanocobalamin/B-12 Pt's Own Medication 06/15/2013 Cyanocobalamin/B-12 Pt's Own Medication 06/30/2013 Cyanocobalamin/B-12 Pt's Own Medication 07/06/2013 Cyanocobalamin/B-12 Pt's Own Medication 07/13/2013 Cyanocobalamin/B-12 Pt's Own Medication 08/10/2013 Cyanocobalamin/B-12 Pt's Own Medication 09/10/2013 Cyanocobalamin/B-12 Pt's Own Medication 10/15/2013 Cyanocobalamin/B-12 Pt's Own Medication 12/24/2013 Cyanocobalamin/B-12 Pt's Own Medication 01/21/2014 Cyanocobalamin/B-12 Pt's Own Medication 04/03/2015 Cyanocobalamin/B-12 Pt's Own Medication 04/05/2015 Cyanocobalamin/B-12 Pt's Own Medication 04/12/2015 Cyanocobalamin/B-12 Pt's Own Medication 04/19/2015 Dexamethasone 4mg Injection 07/17/2021 4 mg Dexamethasone 4mg Injection 10/02/2021 4 mg Dexamethasone 4mg Injection 11/23/2021 4 mg Dexamethasone 4mg Injection 11/27/2021 4 mg Dexamethasone 4mg Injection 09/12/2022 4 mg Dexamethasone 4mg Injection 10/08/2022 4 mg Dexamethasone 4mg Injection 10/24/2022 4 mg Dexamethasone 4mg Injection 01/14/2023 4 mg Dexamethasone 4mg Injection 06/10/2023 4 mg Dexamethasone 4mg Injection 08/05/2023 4 mg Dexamethasone 4mg Injection 04/06/2024 4 mg Dexamethasone 4mg Injection 05/11/2024 4 mg Ceftriaxone 500 11/23/2024 500 mg Dexamethasone 4mg Injection 09/14/2024 4 mg Dexamethasone 4mg Injection 11/23/2024 4 mg Kenalog 40mg 02/27/2017 40 mg Kenalog 40mg 09/17/2019 40 mg Kenalog 40mg 06/13/2020 40 mg Promethazine 11/10/2017 1 mL Triamcinolone Acetonide 40mg Injection 06/09/2018 1 mL Triamcinolone Acetonide 40mg Injection 10/15/2018 1 mL Triamcinolone Acetonide 40mg Injection 12/19/2018 1 mL Triamcinolone Acetonide 40mg Injection 03/16/2019 1 mL Triamcinolone Acetonide 40mg Injection 06/22/2019 1 mL Triamcinolone Acetonide 40mg Injection 12/09/2019 1 mL Triamcinolone Acetonide 40mg Injection 01/06/2020 1 mL Triamcinolone Acetonide 40mg Injection 04/06/2020 1 mL Triamcinolone Acetonide 40mg Injection 05/26/2020 1 mL Triamcinolone Acetonide 40mg Injection 07/28/2020 1 mL Triamcinolone Acetonide 40mg Injection 01/18/2021 1 mL Triamcinolone Acetonide 40mg Injection 04/10/2021 1 mL Kenalog 09/02/2013 1 mL Kenalog 09/22/2013 1 Kenalog 11/30/2013 1 mL Kenalog 03/24/2014 1 mL Kenalog 09/01/2014 1 Kenalog 01/19/2015 1 mL Kenalog 11/23/2015 1 mL Kenalog 10/01/2016 1 Promethazine HCL 01/10/2014 Medical (General) History Medical History History ICD [...] Surgical History Surgery Date(Month/Year) cholecystectomy 1999 Hysterectomy 1987 cataract surgery 2005 cardiac cath x 6, 4 stents Hospitalization History Reason Date(Month/Year) [facility] [place] - weakness and left hemiplegia with negative MRI 10/2023 chest pain 01/2021 cardiac 07/2019 respiratory 09/2018 [facility] [place]- S.O.A
[2025-07-15 10:18] LABS: Hematocrit 34.7 % (37.0-47.0); Hemoglobin 10.6 g/dL (12.2-16.2); Immature Granulocytes % 1.2 %; Mean Corpuscular HGB Conc 30.5 g/dL (31.8-35.4); Mean Corpuscular Hemoglobin 28.5 pg (27.0-31.2); Mean Corpuscular Volume 93.3 fl (81-99); Nucleated Red Blood Cells % 0 %; Platelet Count 259 K/mm3 (142-424); Red Blood Count 3.72 M/mm3 (4.20-5.40); Red Cell Distribution Width-SD 46.2 fL; White Blood Count 11.2 K/mm3 (4.8-10.8)
[2025-07-15 10:19] LABS: Lactate Venous 1.8 mmol/L (0.4-2.0); VBG HCO3 30.2 mmol/L (23-30); VBG PH 7.32 mmol/L (7.31-7.41); VBG PO2 52.0 mmol/L (28-40)
[2025-07-15 10:21] LABS: Albumin Level 3.6 g/dl (3.5-5.0); Chloride 99 mmol/L (98-107); Potassium 4.0 mmoL/L (3.5-5.1); Sodium 142 mmol/L (136-145)
[2025-07-15 10:23] LABS: VBG PCO2 59.6 mmol/L (35-51)
[2025-07-15 10:23] LABS: Blood Urea Nitrogen 15 mg/dl (7-17); Creatinine Clearance Estimated 43 mL/min (50-200); Creatinine,Serum 1.30 mg/dl (0.52-1.04); Estimated Glomerular Filt Rate 40 ml/min (>60); GFR (African American) 49 ML/MIN (>60)
[2025-07-15 10:24] LABS: Alanine Aminotransferase 20 U/L (12-78); Albumin/Globulin Ratio 1.4 (1.1-1.8); Alkaline Phosphatase 88 U/L (38-126); Anion Gap 12.0 mEq/L (5-15); Aspartate Amino Transferase 35 U/L (14-36); Bilirubin,Total 0.5 mg/dl (0.2-1.3); Calcium 9.2 mg/dl (8.4-10.2); Carbon Dioxide 35 mmol/L (22.0-30.0); Globulin 2.6 g/dL (1.3-3.2); Glucose 111 mg/dl (74-100); Total Protein,Serum 6.2 g/dl (6.3-8.2)
--- NOTE | 2025-07-15 10:24 | PC.NURSE ---
Dr. Tsai notified of vbg results.
--- NOTE | 2025-07-15 10:29 | CT_ITS ---
FINAL REPORT TECHNIQUE: Thin section axial CT with contrast with multiplanar reconstruction This study was performed with techniques to keep radiation doses as low as reasonably achievable, (ALARA). Individualized dose reduction techniques using automated exposure control or adjustment of mA and/or kV according to the patient's size were employed. CLINICAL HISTORY: dyspnea COMPARISON: 06/15/2025, 07/06/2023 FINDINGS: Pulmonary vessels enhance in normal fashion without evidence of embolism. Thoracic aorta shows no dissection or aneurysm. There is moderate diffuse plaque disease in the thoracic aorta. No pulmonary mass or infiltrate is present. Severe changes of emphysema are noted. There is no significant pleural effusion. There is no significant pericardial effusion. No mediastinal or hilar adenopathy is present. IMPRESSION: 1. No evidence of pulmonary embolism 2. Advanced changes of emphysema. Reviewed, Interpreted and Dictated by Naseem Price MD Transcribed by Yudith Novoa Authenticated and [facility]
--- NOTE | 2025-07-15 10:29 | CT_ITS ---
FINAL REPORT TECHNIQUE: IV contrast enhanced exam This study was performed with techniques to keep radiation doses as low as reasonably achievable, (ALARA). Individualized dose reduction techniques using automated exposure control or adjustment of mA and/or kV according to the patient's size were employed. CLINICAL HISTORY: epigastric abd pain COMPARISON: 07/06/2024, 06/15/2025 FINDINGS: Abdomen: The gallbladder has been surgically resected. Liver has an unremarkable CT appearance. The spleen, pancreas and adrenal glands are unremarkable. Kidneys show no mass or obstruction. Mild fecal impaction is present, with no bowel obstruction, free air or fluid collection is seen. Pelvis: The appendix is normal in appearance. The uterus has been surgically resected. Pelvic bowel loops are unremarkable. No fluid collection or adenopathy is seen. IMPRESSION: 1. No acute intra-abdominal or intrapelvic abnormality is identified. 2. Mild fecal impaction. Reviewed, Interpreted and Dictated by Naseem Price MD Transcribed by Yudith Novoa Authenticated and [facility]
--- NOTE | 2025-07-15 10:37 | ED_ITS ---
Discharge Plan Disposition Patient Disposition: Home, Self-Care Prescriptions Prescriptions: New benzonatate 100 mg capsule 100 mg PO TID PRN (Reason: cough) 5 Days Qty: 20 0RF albuterol sulfate 90 mcg/actuation HFA aerosol inhaler 4 inh inhalation Q4H PRN (Reason: shortness of breath or wheezing) Qty: 8.5 0RF Rx Instructions: 4 puffs every 4 hours for 48 hours then as needed for shortness of breath or wheezing following amoxicillin-pot clavulanate 875-125 mg tablet 1 tab PO BID 7 Days Qty: 14 0RF No Action metoprolol succinate 25 mg tablet extended release 24 hr 12.5 mg PO HS fluoxetine 40 mg capsule 40 mg PO DAILY Patient Comments: TAKE 1 CAPSULE 1 TIME EACH DAY azithromycin 250 mg tablet 250 mg PO Patient Comments: TAKE 1 TABLET ON FRIDAY, FRIDAY AND FRIDAY. clonazepam 0.5 mg tablet 0.5 mg PO DIRECTED Patient Comments: TAKE 1 TABLET 3 TIMES EACH DAY Rx Instructions: Take 1 tablet in am and 2 at pm morphine concentrate 10 mg/0.5 mL solution 10 mg PO TIDP PRN (Reason: Shortness Of Breath) Linzess 290 mcg capsule 290 mcg PO DAILY PRN (Reason: Abdominal Discomfort) metoclopramide HCl 10 mg tablet 10 mg PO BIDWMEAL Qty: 60 4RF Rx Instructions: administer 30 minutes before meals cholecalciferol (vitamin D3) 25 mcg (1,000 unit) capsule 25 mcg PO DAILY formoterol fumarate [Perforomist] 20 mcg/2 mL solution for nebulization 2 ml inhalation BID 90 Days Qty: 180 3RF budesonide 0.5 mg/2 mL suspension for nebulization 0.5 mg inhalation Q12H Qty: 180 3RF albuterol sulfate 2.5 mg /3 mL (0.083 %) solution for nebulization 2.5 mg inhalation Q4H PRN (Reason: shortness of breath or wheezing) Qty: 75 2RF aspirin 81 MG tablet,delayed release (DR/EC) 81 mg PO HS Trelegy Ellipta 200-62.5-25 mcg Blister With Device 1 inh INHALATION DAILY esomeprazole magnesium 20 mg capsule,delayed release(DR/EC) 20 mg PO BID Patient Comments: TAKE 1 CAPSULE 2 TIMES EACH DAY albuterol sulfate 2.5 mg /3 mL (0.083 %) Solution For Nebulization 2.5 mg inhalation NEEDED PRN (Reason: Breathing Problems) magnesium Tablet 1 tab PO DAILY Rx Instructions: unknown dose bumetanide 1 mg Tablet 0.5 mg PO DAILY 30 Days Qty: 15 0RF spironolactone 25 mg tablet 12.5 mg PO DAILY 30 Days Qty: 15 0RF prednisone 20 mg tablet 20 mg PO BID 14 Days Qty: 28 0RF atorvastatin 40 MG tablet 40 mg PO HS budesonide 0.5 mg/2 mL suspension for nebulization 0.5 mg inhalation Q12H Referrals Follow up/Referrals: Ephraim Lombardo MD [Primary Care Provider, Internal Medicine] - See instructions Activity Restrictions/Add. Instructions Additional Instructions/Restrictions: Your symptoms today are consistent with an acute COPD exacerbation. There is no evidence of pneumonia or any other cardiopulmonary emergency namely any retained foreign bodies within your airways. Also no intra-abdominal pathology noted. You were given a long-acting steroid therefore do not need any further steroids to go home with. Other medications were sent to your pharmacy to treat your COPD exacerbation. Please follow-up with your cryptozoologist or return to the emergency department any significant worsening of your symptoms. Clinical Impressions Clinical Impression: Acute exacerbation of chronic obstructive pulmonary disease, Abdominal pain, acute, epigastric Print Language Print Language: Swiss Discharge ED Provider: Ciaran Tsai General Adult HPI General Chief complaint: Shortness of Breath/Dyspnea Stated complaint: SOA Time Seen by Provider: 07/15/25 10:20 Mode of Arrival: EMS Source of Information: Patient and EMS Description of Symptoms (Recalled from ER Triage Doc. by RN): Pateint presents to ED via EMS from home with c/o SOA and productive cough. Patient states she got choked on corn two weeks ago and has been right since . Patient notes hx of COPD, on 3L NC at baseline. Patient administered a Duo Neb prior to EMS arrival and EMS administered one as well. History of Present Illness HPI narrative: Patient is a 75-year-old on hospice for COPD presents today with worsening shortness of breath and productive cough. She claims that she has not been right since she aspirated corn a few weeks ago and even coughed some of it up yesterday she states. Has had worsening cough sputum production wheezing over the last several days. Is on 3 L nasal cannula at baseline. Came in by EMS. Hospice at the bedside at the moment patient wants full workup. She also complains of significant abdominal discomfort and nausea predominantly in her epigastric region. She refuses Zofran as she states that it does not work. Specifically request promethazine. Related Data Home Medications ?Medication ?Instructions ?Recorded ?Confirmed aspirin 81 mg tablet,delayed 81 mg PO HS 01/30/1912/25 release atorvastatin 40 mg tablet 40 mg PO HS 12/17/21 5 cholecalciferol (vitamin D3) 25 25 mcg PO DAILY 01/06/25 mcg (1,000 unit) capsule metoprolol succinate 25 mg 12.5 mg PO HS 04/25/2212/25 tablet,extended release 24 hr budesonide 0.5 mg/2 mL suspension 0.5 mg inhalation Q1 2H 04/10/23 01/06/25 for nebulization fluticasone fur. 200 mcg-umeclid 1 inh inhalation SAMINA Y 09/30/24 01/06/25 62.5 mcg-vilant 25 mcg inhalat.powder (Trelegy Ellipta) azithromycin 250 mg tablet 250 mg PO MOWEFR 12/01/24 0 01/06/25 clonazepam 0.5 mg tablet 0.5 mg PO DIRECTED 01/06/25 fluoxetine 40 mg capsule 40 mg PO DAILY 12/01/2412/25 linaclotide 290 mcg capsule 290 mcg PO DAILY PRN Abdom inal 12/01/24 01/06/25 (Linzess) Discomfort morphine concentrate 10 mg/0.5 mL 10 mg PO TIDP PRN Sh ortness Of 12/01/24 01/06/25 oral solution Breath albuterol sulfate 2.5 mg/3 mL 2.5 mg inhalation NEE DED PRN 12/06/24 01/06/25 (0.083 %) solution for nebulization Breathing Problems esomeprazole magnesium 20 mg 20 mg PO BID 12/06/24 capsule,delayed release magnesium 1 tab PO DAILY 12/06/2412/25 Previous Rx's ?Medication ?Instructions ?Recorded formoterol fumarate 20 mcg/2 mL 2 ml inhalation BID 90 days #180 mL 02/09/24 solution for nebulization (Perforomist) metoclopramide HCl 10 mg tablet 10 mg PO BIDWMEAL #60 tabs 12/01/24 bumetanide 1 mg tablet 0.5 mg (1/2 x 1 mg) PO DAILY 30 12/07/24 days #15 tabs spironolactone 25 mg tablet 12.5 mg (1/2 x 25 mg) PO D AILY 30 12/07/24 days #15 tabs albuterol sulfate 2.5 mg/3 mL 2.5 mg (3 mL) inhalation Q4H PRN 01/20/25 (0.083 %) solution for nebulization shortness of breat h or wheezing #75 mL budesonide 0.5 mg/2 mL suspension 0.5 mg (2 mL) inhala tion Q12H #180 01/20/25 for nebulization mL prednisone 20 mg tablet 20 mg PO BID 14 days #28 tab s 06/15/25 albuterol sulfate 90 mcg/actuation 4 inh inhalation Q4 H PRN shortness 07/15/25 aerosol inhaler of breath or wheezing #8.5 g yaw amoxicillin 875 mg-potassium 1 tab PO BID 7 days #14 t abs 07/15/25 clavulanate 125 mg tablet benzonatate 100 mg capsule 100 mg PO TID PRN cough 5 d ays #20 07/15/25 caps Allergies Allergy/AdvReac Type Severity Reaction Status Date / Time No Known Allergies Allergy Verified 01/06/25 14:28 [facility] Disclaimer: The information contained in this section may have been updated after the patient was seen, as this information can be updated by other users. Medical History History of adenomatous polyp of colon Esophageal dysmotility Heartburn Bloating Chronic constipation Dysphagia Pre-op testing Atypical angina Diastolic dysfunction Dysphagia Stopped smoking with greater than 30 pack year history Multiple pulmonary nodules Eosinophilia Chronic hypoxemic respiratory failure Dyspnea on exertion Congestive heart failure Acute exacerbation of CHF (congestive heart failure) Coronary atherosclerosis of [place] coronary artery Acute systolic CHF (congestive heart failure) NSTEMI (non-ST elevated myocardial infarction) CKD (chronic kidney disease) Tobacco dependence Acute exacerbation of chronic obstructive airways disease Atypical chest pain Bradycardia Carotid artery stenosis HLD (hyperlipidemia) COPD (chronic obstructive pulmonary disease) Surgical History History of coronary artery stent placement History of hysterectomy History of colonoscopy History of esophagogastroduodenoscopy (EGD) History of lumpectomy No significant past surgical history Family History Other Cancer Family history of GERD Family history of arthritis Family history of hyperlipidemia Family history of hypertension Heart attack Social History Smoking Status: Former smoker tobacco type: cigarettes packs per day: 1 second hand exposure: No alcohol intake: never substance use type: denies use 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al status: retired Travel in the last 8 weeks?: None housing: house marital status: 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al exposures/hazards: No caffeine: Yes Have you lived/traveled outside [place] in past 30 days?: No Contact w/someone who lives/traveled outside US past 30 days?: No Exposure to someone with infectious disease in past 14 days?: No Do you have a fever (greater than 100.4 F or 38 C)?: No Have you tested positive for COVID-19?: No Exposed to someone with COVID-19 in past 14 days?: No Do you have a sore throat?: No Do you have a cough?: Yes Do you have any weakness?: Yes Do you have any diarrhea?: No Are you experiencing any unusual bleeding?: No Do you have any muscle aches/pain?: No Do you have any abdominal pain?: No Are you experiencing loss of taste or smell?: No Other Medical History Have you received the Flu Vaccine for this season: No Have you received the Pneumonia Vaccine: Yes ROS Obtained: Yes All systems reviewed & no additional complaints except as documented Physical Exam General General appearance: in no apparent distress Respiratory Respiratory exam: Present other (Diffuse expiratory wheezing with prolonged expiratory phase no respiratory distress) Cardiovascular Cardiovascular exam: Present regular rate and normal rhythm Abdominal Exam Abdominal exam: Present soft and tenderness (Epigastric tenderness to palpation) Neurological Exam Neurological exam: Present alert and oriented X3 Medical Decision Making Medical Records Screening: Per USPSTF and CDC recommendations, given the prevalence of disease in our region, it is our hospital?s policy to screen for HIV and viral Hepatitis for all patients aged 18 and over and those with ongoing risk factors. [place] Inquiry Pt receiving controlled substance: No Vital Signs: 07/15/25 09:53 07/15/25 09:58 07/15/25 10:14 Temperature 98.7 F Temperature Source Axillary Pulse Rate Pulse Rate [Left] 65 Respiratory Rate 24 Blood Pressure 153/84 H Blood Pressure [Right Arm] 194/62 H Blood Pressure Mean Blood Pressure Mean [Right Arm] 106 Blood Pressure Source Automatic Cuff Blood Pressure Source [Right Arm] Automatic Cuff Blood Pressure Position Supine Blood Pressure Position [Right Arm] Supine 02 Sat by Pulse Oximetry 94 L 94 L Oxygen Delivery Method Nasal Cannula Nasal Cannula Oxygen Flow Rate (LPM) 3 3 07/15/25 10:30 07/15/25 11:12 07/15/25 11:30 Temperature Temperature Source Pulse Rate 72 67 Pulse Rate [Left] Respiratory Rate 17 20 Blood Pressure 149/83 H 152/60 H 136/42 L Blood Pressure [Right Arm] Blood Pressure Mean 96 103 78 Blood Pressure Mean [Right Arm] Blood Pressure Source Blood Pressure Source [Right Arm] Blood Pressure Position Blood Pressure Position [Right Arm] 02 Sat by Pulse Oximetry 90 L 98 Oxygen Delivery Method Nasal Cannula Nasal Cannula Oxygen Flow Rate (LPM) 3 3 Lab Data Lab results reviewed: Yes I reviewed the patient's lab results. Lab Results 07/15/25 10:12: VBG pH 7.32, VBG pCO2 59.6 H, VBG pO2 52.0 H, VBG HCO3 30.2 H, V BG Total CO2 32.0 H, VBG O2 Saturation 84.3 H, VBG Base Excess 4.1 H, VBG Lactic Acid 1.8 07/15/25 : WBC 11.2 H, RBC 3.72 L, Hgb 10.6 L, Hct 34.7 L, MCV 93.3, MCH 28.5, M CHC 30.5 L, RDW 13.5, Plt Count 259, MPV 10.0, Neut % (Auto) 60.7, Lymph % (Auto) 22.3, [place] % (Auto) 9.4 H, Eos % (Auto) 5.9, Baso % (Auto) 0.5, Neut # (Auto) 6.8, Lymph # (Auto) 2.5, [place] # (Auto) 1.1 H, Eos # (Auto) 0.7 H, Baso # (Auto) 0.1, Sodium 142, Potassium 4.0, Chloride 99, Carbon Dioxide 35 H, Anion Gap 12.0, BUN 15, Creatinine 1.30 H, Estimated Creat Clear 43, Estimated GFR 40 L, Est GFR ( Amer) 49 L, Glucose 111 H, Calcium 9.2, Total Bilirubin 0.5, AST 35, ALT 20, Alkaline Phosphatase 88, Troponin I 0.03, NT-Pro-B Natriuret Pep 1390 H, Total Protein 6.2 L, Albumin 3.6, Globulin 2.6, Albumin/Globulin Ratio 1.4, Lipase 33 07/15/25 Unknown 07/15/25 Unknown Orders (Tests/Meds): ED MEDICATIONS Generic Name Dose Route Start Last Admin Trade Name Freq PRN Reason Stop Dose Admin Sodium Chloride 10 ml 07/15/25 11:03 07/15/25 11:04 Sodium Chloride 0.9% 10ml Syr (Rad Only) IV 08/14/25 11:02 10 ml NEEDED PRN Administration Maintain IV Site Discontinued Medications Generic Name Dose Route Start Last Admin Trade Name Freq PRN Reason Stop Dose Admin Albuterol/Ipratropium 3 ml 07/15/25 10:29 07/15/25 10:41 Ipratropium/Albuterol 3 Ml Neb IH 07/15/25 10:30 3 ml ONCE ONE Administration Dexamethasone Sodium Phosphate 10 mg 07/15/25 10:29 07/15/25 10:42 Dexamethasone 4mg/Ml 1ml Vial IV 07/15/25 10:30 10 mg ONCE ONE Administration Magnesium Sulfate 2 gm in 50 mls @ 50 mls/hr 07/15/25 10:29 07/15/25 11:40 Magnesium Sulfate 2gm/50ml Premix IV 07/15/25 11:28 Infused ONCE ONE Infusion Iopamidol 80 ml 07/15/25 11:03 07/15/25 11:04 Iopamidol-370 (76%);100ml Bottle IV 07/15/25 11:04 80 ml ONCE ONE Administration Promethazine HCl 12.5 mg 07/15/25 10:29 07/15/25 10:41 Promethazine Hcl 25mg/Ml 1ml Vial IV 07/15/25 10:30 12.5 mg ONCE ONE Administration Sodium Chloride 25 ml 07/15/25 10:29 07/15/25 10:42 Sodium Chloride 0.9% 25ml Bag IV 07/15/25 10:30 25 ml ONCE ONE Administration Sodium Chloride 50 ml 07/15/25 11:03 07/15/25 11:04 0.9 % Sodium Chloride 50 Ml Vial IV 07/15/25 11:04 50 ml ONCE ONE Administration ORDERS Category Date Time Status CT abdomen pelvis w con Stat Cat Scan 07/15/25 10:[address] angio chest PE protocol Stat Cat Scan 07/15/25 10:29 Completed BNP [NT Pro Brain Natriuretic Pep.] Stat Lab 07/15/25 Completed Complete Blood Count Auto Diff Stat Lab 07/15/25 Completed Comprehensive Metabolic Panel Stat Lab 07/15/25 Completed Lipase Stat Lab 07/15/25 Completed Trop I [Troponin I] Stat Lab 07/15/25 Completed Troponin I Q3H Lab 07/15/25 13:30 Ordered Troponin I Q3H Lab 07/15/25 16:30 Ordered VBG [Venous Blood Gas] Stat RT 07/15/25 10:12 Completed Medical Decision Narrative: 75-year-old with above history and physical presents with what appears to be a COPD exacerbation with worsening cough sputum production wheezing and shortness of breath. Nebs and steroids have been initiated. Given her history as well as significant abdominal discomfort we will get a scan of her chest abdomen and pelvis for further evaluation management of cardiopulmonary emergencies in addition to possible intra-abdominal pathology. Labs pending. Hospice at the bedside are primary concern is comfort however patient wanted full diagnostic evaluation. Reassessment 11:56 AM labs reviewed and were unremarkable. CT scan of the patient's chest abdomen pelvis were performed which I personally interpreted which other than extensive emphysematous changes no acute abnormalities were found namely no focal consolidations or large particulate matter within the airways. Intra-abdominal he no emergency noted. Radiology reads consistent with this as well. Symptomatically patient significantly improved. She will go home with medications to treat her COPD exacerbation. No need for hospitalization vitals are stable and her baseline on her 3 L nasal cannula. Return precautions emphasized and follow-up instructions discussed. Critical Care Critical Care Time Critical Care Time: Yes Attestation: On 07/15/25, the high probability of a clinically significant, sudden or life threatening deterioration of the following system(s) required my full and direct attention, intervention and personal management. The time I documented below is in addition to time spent performing reported procedures but includes the following listed in this critical care notation. Total Time Total Critical Care Time: 35
[2025-07-15] MEDS: IPRATROPIUM/ALBUTEROL 3 ML NEB IH (10:41)
[2025-07-15] MEDS: PROMETHAZINE HCL 25MG/ML 1ML VIAL 12.5 MG IV (10:41)
[2025-07-15] MEDS: MAGNESIUM SULFATE IN WATER 2 GM/50 ML PIGGYBACK IV (10:41)
[2025-07-15] MEDS: DEXAMETHASONE 4MG/ML 1ML VIAL 10 MG IV (10:42)
[2025-07-15] MEDS: SODIUM CHLORIDE 0.9% 25ML BAG 25 ML IV (10:42)
[2025-07-15 10:49] LABS: Lipase 33 U/L (23-300)
[2025-07-15 10:59] LABS: NT Pro Brain Natriuretic Pep. 1390 pg/mL (0-125)
[2025-07-15 11:02] LABS: Troponin I 0.03 ng/ml (0.00-0.034)
[2025-07-15] MEDS: SODIUM CHLORIDE 0.9% 10ML SYR (RAD ONLY) 10 ML IV (11:04)
[2025-07-15] MEDS: IOPAMIDOL-370 (76%);100ML BOTTLE 80 ML IV (11:04)
[2025-07-15] MEDS: 0.9 % SODIUM CHLORIDE 50 ML VIAL IV (11:04)
== END 2025-07-15 12:14 | disposition home or self-care (01) ==
PROVIDERS: Emergency Provider Student in an Organized Health Care Education/Training Program; PCP Internal Medicine Adolescent Medicine
DX: J44.1 Chronic obstructive pulmonary disease with (acute) exacerbation (principal); R10.13 Epigastric pain; I10 Essential (primary) hypertension; E78.5 Hyperlipidemia, unspecified; Z87.891 Personal history of nicotine dependence
CPT/HCPCS: 71275; 74177; 80053; 82803; 83690; 83880; 84484; 85025; 93005; 96365; 96375; 99285; J1100; J2550; J3475; Q9967

== ENCOUNTER 2025-08-02 00:45 | Emergency (ER) | payer OTHER, MEDICARE, SELFPAY ==
--- OUTSIDE RECORDS SUMMARY | 2025-05-26 07:30 | XMS_ITS ---
Author Organization [facility] D JOSE Address [address] [place] [address] Care Team Providers Care Sink Maker Name Role Phone Ephraim Lombardo Primary Care Provider REASON FOR VISIT AWV & ck up Encounters Encounter Location Date Provider Diagnosis [facility] [address] [address] 05/26/2025 Ephraim Lombardo Plan Of Treatment No Information Progress Notes * Shayy BLACK LDOB:1950 (75 yo F)Acc No.[id number]:05/26/2025 Progress notes Patient: Shayy NJ Provider: Natanael Lombardo MD :1950 A ge:74 Y S ex:Female Date:05/26/2025 Address:[address] [place] [address] [id number] Subjective: * Chief Complaints: * 1 . AWV & ck up. * Medical History: Objective: * Vitals: Assessment: Plan: * Treatment: * * Electronic signature of Hong Lombardo MD FAAP on 08/02/2025 at 12:52 AM EDT Sign off status: Pending * Provider: Natanael Lombardo MD Date: 0 05/26/2025 Generated for Printi ng/Faxing/eTransmitting on: 1 12:52 AM EDT
--- OUTSIDE RECORDS SUMMARY | 2025-07-22 12:00 | XMS_ITS ---
Author Organization [facility] Address [address] [place] [address] Care Team Providers Care Charm Filter Operator Helper Name Role Phone Ephraim Lombardo Primary Care Provider REASON FOR VISIT Home visit / hospice Medications Medication SIG (Take, Route, Frequency, Duration) Notes Start Date End Date Status Morphine Sulfate (Concentrate) 20 MG/ML 1 ML orally every 4 hours; Duration: 30 days 12/10/2024 Active predniSONE 10 MG 1-2 tabs orally daily; Duration: 30 days As needed Active Acyclovir 800 MG 1 tab(s) orally 3 times a day; Duration: 7 days prn 04/21/2024 Active Ipratropium-Albuterol 0.5-2.5 (3) MG/3ML 3 ml [...] review and pick correct strength-formulat ion from [facility] options. If intended option is not shown, discontinue and re-order from Quick Search* Active Atorvastatin Calcium 40 MG 1 tab(s) orally once a day; Duration: 90 days Active clonazePAM 0.5 MG 1 tab(s) orally twice a day; Duration: 30 days 11/07/2024 Active NexIUM 40 MG 1 cap(s) orally twice a day; Duration: 90 days Active Budesonide 0.5 MG/2ML 2 ml by nebulizer 2 times a day; Duration: 30 day(s) prn 03/05/2022 Active Magnesium 400MG 1 TABLET ONCE A DAY *Please revi ew and pick correct strength-formulat ion from [facility] options. If intended option is not shown, discontinue and re-order from Quick Search* Active Metoclopramide HCl 5 MG 1 tab(s) orally twice a day 30 mins before meals; Duration: 30 days 11/18/2023 Active Biotin 51184 MCG 1 TAB(S) ORALLY ONCE A DAY *Please review and pick correct strength-formulat ion from [facility] options. If intended option is not shown, [...] for e-prescription and drug interaction check* Active Problems Problem Type SNOMED Code ICD Code Onset Dates Problem Status W/U Status Risk Notes Problem Altered mental status (417451691) Altered mental status, unspecified altered mental status type (R41.82) Active confirmed Vital Signs Temperature 98 degrees Fahrenheit 07/22/2025 Heart Rate 60 /min 07/22/2025 Height 68 in 07/22/2025 Encounters Encounter Location Date Provider Diagnosis [facility] [address] [place] [address] 07/22/2025 Ephraim Lombardo Chronic hypoxemic respiratory failure J96.11 ; Panlobular emphysema J43.1 and Altered mental status, unspecified altered mental status type R41.82 Assessments Encounter Date Diagnosis (ICD Code) Assessment Notes Treatment Notes Treatment Clinical Notes Section Notes 07/22/2025 Chronic hypoxemic respiratory failure (ICD-10 - J96.11) Patient clearly is in chronic respiratory failure. Certainly could be disease progression and terminal illness. However I am actually wondering if this is a morphine effect. I talked to hospice nurse and we will back off the morphine back to its original level over the weekend and see how things go. Discussed the case with her grandson and [id number] who are both in healthcare and they are in agreement with this plan. They visited with her after I did and we have talked about the case. 07/22/2025 Panlobular emphysema (ICD-10 - J43.1) Stable, certainly in terminal phase see notes above 07/22/2025 Altered mental status, unspecified altered mental status type (ICD-10 - R41.82) Still drinking water. signed DNR paperwork today which I am supportive of. I am not sure patient is able to competently make decisions today 07/22/2025 Other spent greater than 40 minutes in direct patient care with >50% of time spent on counseling on diagnoses and treatments. Plan Of Treatment Treatment Notes Assessment Notes Chronic hypoxemic respiratory failure Patient clearly is in chronic respiratory failure. Certainly could be disease progression and terminal illness. However I am actually wondering if this is a morphine effect. I talked to hospice nurse and we will back off the morphine back to its original level over the weekend and see how things go. Discussed the case with her grandson and [id number]-imp who are both in healthcare and they are in agreement with this plan. They visited with her after I did and we have talked about the case. Panlobular emphysema Stable, certainly i n terminal phase see notes above Altered mental status, unspe cified altered mental status type Still drinking water. signed DNR paperwork today which I am supportive of. I am not sure patient is able to competently make decisions today Other spent greater than 4 0 minutes in direct patient care with >50% of time spent on counseling on diagnoses and treatments. Next Appt Details Follow Up: prn, Reason: Progress Notes * Shayy BLACK LDOB:1950 (75 yo F)Acc No.[id number]:07/22/2025 Progress notes Patient: Shayy [place] Provider: Natanael Lombardo MD :1950 A ge:75 Y S ex:Female Date:07/22/2025 Address:[address] [place] [address] [place], [id number] Subjective: * Chief Complaints: * 1 . Home visit / hospice. * HPI: g en: I went to see patient at her home today because hospice had called me earlier this afternoon stating that she was near the end of life in regards to some of her symptoms and they called me because of this notification. Interestingly none of her family members have been called. Please see prior telephone encounter but increased morphine dosage. She was at home, with her and a couple friends. She was awake but very sleepy. She remembered my name and we had a very detailed conversation about my family and other events. Please see notes below but the rest of her exam. * Medical History: * Medications: T aking IBEROGAST SOFTGELS TWICE [...] , Notes to Pharmacist: prn, Taking Biotin 98987 MCG CAPSULE 1 TAB(S) ORALLY ONCE A DAY , Notes to Pharmacist: *Please review and pick correct strength-formulation from [facility] options. If intended option is not shown, [...] *Please review and pick correct strength-formulation from [employer] [facility] options. If intended option is not shown, discontinue and re-order from Quick Search*, Taking Cholecalciferol 25 MCG TABLET 1 TAB(S) ORALLY ONCE A DAY , Notes to Pharmacist: *Please review and pick correct strength-formulation from [facility] options. If intended option is not shown, [...] tid , Notes to Pharmacist: prn, Taking Acyclovir 800 MG Tablet 1 tab(s) orally 3 times a day , Notes to Pharmacist: prn, Taking predniSONE 10 MG Tablet 1-2 tabs orally daily As needed, Taking Morphine Sulfate (Concentrate) 20 MG/ML Solution 1 ML orally every 4 hours Objective: * Vitals: P ain: Not Taken - Declined by Patient, Temp: 98, RR: 16, HR: 60, Ht: 68, Wt: Not Taken - No Medical Need, BMI: Not Taken - No Medical Need. * Examination: G eneral Examination: General D rowsy. Alert to surroundings, person and people she is with. She did have a couple of episodes during the visit where she seemed to lose track of the conversation and actually seemed to forget who had just been in the room. I do not believe she was actually hallucinating but certainly did lose touch with the current situation a couple of times. Wearing oxygen, breathing was labored but not agonal. Sitting up in her chair. Lungs have very poor air entry part, heart rate regular but not bradycardic. Distal pulses poor. Abdomen soft. Assessment: * Assessment: 1. C hronic hypoxemic respiratory failure - J96.11 (Primary) 2 . P anlobular emphysema - J43.1 3 . A ltered mental status, unspecified altered mental status type - R41.82 Plan: * Treatment: 2. P anlobular emphysema Notes: Stable, certainly in terminal phase see notes above 3. A ltered mental status, unspecified altered mental status type Notes: Still drinking water. signed DNR paperwork today which I am supportive of. I am not sure patient is able to competently make decisions today 4. O thers Notes: spent greater than 40 minutes in direct patient care with >50% of time spent on counseling on diagnoses and treatments. * Procedure Codes: 9 9349 HOME VISIT - ESTAB PT - 3, Modifiers: GV , G2211 Complex e/m visit add on * Follow Up: p rn * * Sign off status: Completed true * Provider: Natanael Lombardo MD Date: 0 07/22/2025 Generated for Ramírez mak/Marlena/eTransmitting on: 1 12:53 AM EDT History and Physical Notes * HPI (History of Present Illness) Category Sub-Category Detail Notes Category Not es gen I went to see patient at her home today because hospice had called me earlier this afternoon stating that she was near the end of life in regards to some of her symptoms and they called me because of this notification. Interestingly none of her family members have been called. Please see prior telephone encounter but increased morphine dosage. She was at home, with her and a couple friends. She was awake but very sleepy. She remembered my name and we had a very detailed conversation about my family and other events. Please see notes below but the rest of her exam Examination Category Sub-Category Detail Notes Category Not es General Examination General Drowsy. Aler t to surroundings, person and people she is with. She did have a couple of episodes during the visit where she seemed to lose track of the conversation and actually seemed to forget who had just been in the room. I do not believe she was actually hallucinating but certainly did lose touch with the current situation a couple of times. Wearing oxygen, breathing was labored but not agonal. Sitting up in her chair. Lungs have very poor air entry part, heart rate regular but not bradycardic. Distal pulses poor. Abdomen soft
--- OUTSIDE RECORDS SUMMARY | 2025-07-26 07:00 | XMS_ITS ---
Author Organization [facility] Address [address] [place], [place] [address] Care Team Providers Care Head Of Commission Department Name Role Phone Ephraim Lombardo Primary Care Provider [phone] REASON FOR VISIT 2 week f/u Encounters Encounter Location Date Provider Diagnosis [facility] [address] [address] 07/26/2025 Ephraim Lombardo Plan Of Treatment No Information Progress Notes * Shayy BLACK LDOB:1950 (75 yo F)Acc No.[id number]:07/26/2025 Progress Notes Patient: Shayy [place] Provider: Natanael Lombardo MD :1950 A ge:75 Y S ex:Female Date:07/26/2025 Address:[address] [place] [address] [id number] Subjective: * Chief Complaints: * 1 . 2 week f/u. * Medical History: Objective: * Vitals: Assessment: Plan: * Treatment: * * Electronic signature of Hong Lombardo MD FAAP on 08/02/2025 at 12:52 AM EDT Sign off status: Pending * Provider: Natanael Lombardo MD Date: 0 07/26/2025 Generated for Printi ng/Faxing/eTransmitting on: 1 12:52 AM EDT
[2025-08-02] VITALS (7 sets, daily range): BP systolic 100–132; BP diastolic 41–71; PULSE 71–88; RESP 15–16; TEMP 36.7; O2SAT 86–98; BMI 21.7
--- NOTE | 2025-08-02 00:38 | CT_ITS ---
PROCEDURE INFORMATION: Exam: CT Cervical Spine Without Contrast Exam date and time: 08/02/2025 1:45 AM Age: 75 years old Clinical indication: Injury or trauma; Additional info: Trauma, critical injury suspected TECHNIQUE: Imaging protocol: Computed tomography of the cervical spine without contrast. Radiation optimization: All CT scans at this facility use at least one of these dose optimization techniques: automated exposure control; mA and/or kV adjustment per patient size (includes targeted exams where dose is matched to clinical indication); or iterative reconstruction. COMPARISON: 1. CT ANGIO NECK 10/31/2023 5:[address] ANGIO NECK 08/02/2025 1:57 AM FINDINGS: Bones: No acute fracture. Icuo-uj-iqbqlsnm chronic degenerative changes without severe spinal stenosis. Lungs: Bullous emphysematous changes in the visualized lung apices. Soft tissues: Visualized paravertebral soft tissues demonstrate no acute abnormality. IMPRESSION: No acute abnormality.
--- NOTE | 2025-08-02 00:38 | CT_ITS ---
PROCEDURE INFORMATION: Exam: CTA Head With Contrast, Arteriography Exam date and time: 08/02/2025 1:57 AM Age: 75 years old Clinical indication: Injury or trauma; Additional info: Trauma, critical injury suspected TECHNIQUE: Imaging protocol: Computed tomographic angiography of the head with contrast. Exam focused on the arteries. 3D rendering (Not supervised by radiologist): MIP and/or 3D reconstructed images were created by the technologist. Radiation optimization: All CT scans at this facility use at least one of these dose optimization techniques: automated exposure control; mA and/or kV adjustment per patient size (includes targeted exams where dose is matched to clinical indication); or iterative reconstruction. Contrast material: ISOVUE; Contrast volume: 80 ml; Contrast route: INTRAVENOUS (IV); COMPARISON: 1. CT ANGIO HEAD 10/31/2023 5:[address] HEAD/BRAIN WO CON 08/02/2025 1:[address] FACIAL BONES WO CON 08/02/2025 1:43 AM FINDINGS: ANTERIOR CIRCULATION: Right internal carotid artery: Intracranial segment is patent with no significant stenosis. No aneurysm. Right middle cerebral artery: No occlusion or significant stenosis. No aneurysm. Right anterior cerebral artery: No occlusion or significant stenosis. No aneurysm. Left internal carotid artery: Intracranial segment is patent with no significant stenosis. No aneurysm. Left middle cerebral artery: No occlusion or significant stenosis. No aneurysm. Left anterior cerebral artery: No occlusion or significant stenosis. No aneurysm. POSTERIOR CIRCULATION: Right vertebral artery: No occlusion or significant stenosis. No aneurysm. Left vertebral artery: No occlusion or significant stenosis. No aneurysm. Basilar artery: No occlusion or significant stenosis. No aneurysm. Right posterior cerebral artery: Persistent origin of right posterior cerebral artery, a normal anatomic variant. No occlusion or significant stenosis. No aneurysm. Left posterior cerebral artery: No occlusion or significant stenosis. No aneurysm. Left posterior communicating artery: No occlusion or significant stenosis. No aneurysm. Brain: No definite mass, mass effect, or midline shift. Cerebral ventricles: No ventriculomegaly. Orbital cavities: Status post bilateral intra-ocular lens replacement. Paranasal sinuses: Air-fluid levels in the left maxillary and left sphenoid sinuses. Bones/joints: No acute fracture. Soft tissues: Unremarkable. IMPRESSION: 1. No acute findings. 2. No large vessel occlusion or significant stenosis.
--- NOTE | 2025-08-02 00:38 | CT_ITS ---
PROCEDURE INFORMATION: Exam: CT Lumbar Spine Without Contrast Exam date and time: 08/02/2025 1:50 AM Age: 75 years old Clinical indication: Injury or trauma; Additional info: Trauma, critical injury suspected TECHNIQUE: Imaging protocol: Computed tomography of the lumbar spine without contrast. Radiation optimization: All CT scans at this facility use at least one of these dose optimization techniques: automated exposure control; mA and/or kV adjustment per patient size (includes targeted exams where dose is matched to clinical indication); or iterative reconstruction. COMPARISON: CT THORACIC SPINE WO CON 08/02/2025 1:47 AM FINDINGS: Bones/joints: No acute fracture. Chronic left transverse process fracture of L1, L2. Normal alignment. Degenerative changes at L3-L4 with disc bulging and vacuum phenomenon. Facet joint arthropathy at L5-S1 and mild disc bulging at L4-L5 and L5-S1 Soft tissues: Unremarkable. IMPRESSION: No acute lumbar spine fracture.
--- NOTE | 2025-08-02 00:38 | CT_ITS ---
PROCEDURE INFORMATION: Exam: CTA Neck With Contrast Exam date and time: 08/02/2025 1:57 AM Age: 75 years old Clinical indication: Injury or trauma; Additional info: Trauma, critical injury suspected TECHNIQUE: Imaging protocol: Computed tomographic angiography of the neck with contrast. Exam focused on the cervical segments of the vasculature. 3D rendering (Not supervised by radiologist): MIP and/or 3D reconstructed images were created by the technologist. Radiation optimization: All CT scans at this facility use at least one of these dose optimization techniques: automated exposure control; mA and/or kV adjustment per patient size (includes targeted exams where dose is matched to clinical indication); or iterative reconstruction. Contrast material: ISOVUE; Contrast volume: 80 ml; Contrast route: INTRAVENOUS (IV); COMPARISON: 1. CT ANGIO NECK 10/31/2023 5:[address] CERVICAL SPINE WO CON 08/02/2025 1:45 AM FINDINGS: Right common carotid artery: No stenosis. No dissection or occlusion. Right internal carotid artery: No stenosis of the extracranial segment. No dissection or occlusion. Right external carotid artery: No occlusion or stenosis of the origin. Left common carotid artery: No stenosis. No dissection or occlusion. Left internal carotid artery: Stable moderate stenosis in the proximal left ICA, about 60% by NASCET criteria. Left ICA otherwise patent. No dissection or occlusion. Left external carotid artery: No occlusion or stenosis of the origin. Right vertebral artery: No stenosis. No dissection or occlusion. Left vertebral artery: No stenosis. No dissection or occlusion. Soft tissues: Normal. No significant soft tissue swelling. Bones/joints: No acute fracture. Lungs: Severe bullous emphysematous changes in the visualized lung apices. Calcified granulomas in the right upper lung. IMPRESSION: 1. No acute findings. 2. 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 Unchanged from 10/31/2023. REFERENCES: NASCET CRITERIA. The degree of stenosis in the cervical segment of the internal carotid artery is based on NASCET criteria. Normal is no stenosis. Mild is less than 50% stenosis. Moderate is 50-69% stenosis. Severe is 70% to 99% stenosis. Total occlusion is no detectable patent lumen.
--- NOTE | 2025-08-02 00:38 | CT_ITS ---
PROCEDURE INFORMATION: Exam: CT Thoracic Spine Without Contrast Exam date and time: 08/02/2025 1:47 AM Age: 75 years old Clinical indication: Injury or trauma; Additional info: Trauma, critical injury suspected TECHNIQUE: Imaging protocol: Computed tomography of the thoracic spine without contrast. Radiation optimization: All CT scans at this facility use at least one of these dose optimization techniques: automated exposure control; mA and/or kV adjustment per patient size (includes targeted exams where dose is matched to clinical indication); or iterative reconstruction. COMPARISON: CT CERVICAL SPINE WO CON 08/02/2025 1:45 AM FINDINGS: Bones/joints: No acute fracture. Normal alignment. No significant disc bulge or herniation. No severe spinal canal stenosis. No significant neural foraminal narrowing. Soft tissues: Unremarkable. IMPRESSION: No acute thoracic spine fracture.
--- NOTE | 2025-08-02 00:38 | CT_ITS ---
PROCEDURE INFORMATION: Exam: CTA Abdomen and Pelvis With Contrast Exam date and time: 08/02/2025 2:02 AM Age: 75 years old Clinical indication: Injury or trauma; Additional info: Trauma, critical injury suspected TECHNIQUE: Imaging protocol: Computed tomographic angiography of the abdomen and pelvis with contrast. Exam focused on the arteries. 3D rendering (Not supervised by radiologist): MIP and/or 3D reconstructed images were created by the technologist. Radiation optimization: All CT scans at this facility use at least one of these dose optimization techniques: automated exposure control; mA and/or kV adjustment per patient size (includes targeted exams where dose is matched to clinical indication); or iterative reconstruction. Contrast material: ISOVUE; Contrast volume: 80 ml; Contrast route: INTRAVENOUS (IV); COMPARISON: CT ABDOMEN PELVIS W CON 07/15/2025 11:06 AM FINDINGS: Aorta: No aortic aneurysm. No aortic dissection. Celiac and mesenteric arteries: No occlusion or significant stenosis. Renal arteries: No occlusion or significant stenosis. Right iliac arteries: No occlusion or significant stenosis. Left iliac arteries: No occlusion or significant stenosis. Liver: No mass. Gallbladder and biliary ducts: Cholecystectomy Pancreas: Unremarkable. No mass. No ductal dilation. Spleen: Unremarkable. No splenomegaly. Adrenal glands: Unremarkable. No mass. Kidneys and ureters: Unremarkable. No solid mass. No hydronephrosis. Stomach and bowel: Air-fluid levels in the colon but no wall thickening. No small bowel obstruction Appendix: No evidence of appendicitis. Intraperitoneal space: Unremarkable. No free air. No significant fluid collection. Lymph nodes: Unremarkable. No enlarged lymph nodes. Urinary bladder: Unremarkable. No mass. Reproductive: Hysterectomy Bones/joints: No acute fracture. Soft tissues: Unremarkable. IMPRESSION: No acute posttraumatic findings in the abdomen pelvis
--- NOTE | 2025-08-02 00:38 | CT_ITS ---
PROCEDURE INFORMATION: Exam: CT Head Without Contrast Exam date and time: 08/02/2025 1:41 AM Age: 75 years old Clinical indication: Injury or trauma; Additional info: Trauma, critical injury suspected TECHNIQUE: Imaging protocol: Computed tomography of the head without contrast. Radiation optimization: All CT scans at this facility use at least one of these dose optimization techniques: automated exposure control; mA and/or kV adjustment per patient size (includes targeted exams where dose is matched to clinical indication); or iterative reconstruction. COMPARISON: 1. MR HEAD/BRAIN WO CON 11/04/2023 1:[address] FACIAL BONES WO CON 08/02/2025 1:[address] HEAD/BRAIN WO CON 10/31/2023 5:33 PM FINDINGS: Brain: Age-appropriate diffuse cerebral volume loss. No acute intracranial hemorrhage. No abnormal extra-axial fluid collection. No midline shift or mass effect. No acute large territory infarct. Chronic white matter changes, likely to be chronic small-vessel ischemic changes. Cerebral ventricles: No ventriculomegaly. Paranasal sinuses: Air-fluid levels in the left maxillary and left sphenoid sinuses. Mastoid air cells: Visualized mastoid air cells are clear. Orbital cavities: Status post bilateral intra-ocular lens replacement. Bones: No acute fracture. Soft tissues: Unremarkable. IMPRESSION: No acute intracranial abnormality.
--- NOTE | 2025-08-02 00:38 | CT_ITS ---
PROCEDURE INFORMATION: Exam: CTA Chest With Contrast Exam date and time: 08/02/2025 2:02 AM Age: 75 years old Clinical indication: Injury or trauma; Additional info: Trauma, critical injury suspected TECHNIQUE: Imaging protocol: Computed tomographic angiography of the chest with contrast. Exam focused on the arteries. 3D rendering (Not supervised by radiologist): MIP and/or 3D reconstructed images were created by the technologist. Radiation optimization: All CT scans at this facility use at least one of these dose optimization techniques: automated exposure control; mA and/or kV adjustment per patient size (includes targeted exams where dose is matched to clinical indication); or iterative reconstruction. Contrast material: ISOVUE; Contrast volume: 80 ml; Contrast route: INTRAVENOUS (IV); COMPARISON: CT ANGIO CHEST PE PROTOCOL 07/15/2025 11:06 AM FINDINGS: Pulmonary arteries: Normal. No pulmonary emboli. Aorta: Unremarkable. No aortic aneurysm. No aortic dissection. Lungs: Severe emphysematous changes. No consolidation. Pleural spaces: Unremarkable. No pneumothorax. No pleural effusion. Heart: Unremarkable. No cardiomegaly. No pericardial effusion. Lymph nodes: Unremarkable. No enlarged lymph nodes. Bones/joints: Unremarkable. No acute fracture. Soft tissues: Unremarkable. IMPRESSION: No acute findings. COMMENTS: The presence of pulmonary emphysema on CT is an independent risk factor for lung cancer. In the absence of a history or active diagnosis of lung cancer, it is recommended that this patient with emphysema be evaluated for enrollment in a low dose CT lung cancer screening program.
--- NOTE | 2025-08-02 00:38 | PC.NURSE ---
Called Hospice. Left message for on-call nurse.
--- NOTE | 2025-08-02 00:42 | XR_ITS ---
PROCEDURE INFORMATION: Exam: XR Right Tibia and Fibula Exam date and time: 08/02/2025 1:07 AM Age: 75 years old Clinical indication: Pain; Lower leg; Right; Additional info: Fall TECHNIQUE: Imaging protocol: Radiologic exam of the right tibia and fibula. Views: 2 views. COMPARISON: CR XR FOOT RT MIN 3V 08/02/2025 1:07 AM FINDINGS: Bones/joints: Normal. Soft tissues: Normal. IMPRESSION: No acute findings.
--- NOTE | 2025-08-02 00:42 | XR_ITS ---
PROCEDURE INFORMATION: Exam: XR Right Femur Exam date and time: 08/02/2025 1:07 AM Age: 75 years old Clinical indication: Pain; Thigh; Right; Additional info: Fall TECHNIQUE: Imaging protocol: Radiologic exam of the right femur. Views: 2 views. COMPARISON: CT ABDOMEN PELVIS W CON 07/15/2025 11:06 AM FINDINGS: Bones/joints: Unremarkable. No acute fracture. Soft tissues: Soft tissue hematoma involving the lateral hip and upper thigh. IMPRESSION: No acute findings. Soft tissue hematoma involving the lateral hip and upper thigh.
--- NOTE | 2025-08-02 00:42 | XR_ITS ---
PROCEDURE INFORMATION: Exam: XR Left Femur Exam date and time: 08/02/2025 1:07 AM Age: 75 years old Clinical indication: Pain; Thigh; Left; Additional info: Fall TECHNIQUE: Imaging protocol: Radiologic exam of the left femur. Views: 2 views. COMPARISON: CT ABDOMEN PELVIS W CON 07/15/2025 11:06 AM FINDINGS: Bones/joints: Unremarkable. No acute fracture. Soft tissues: Soft tissue scattered ramez IMPRESSION: No acute findings.
--- NOTE | 2025-08-02 00:42 | XR_ITS ---
PROCEDURE INFORMATION: Exam: XR Right Elbow Exam date and time: 08/02/2025 1:07 AM Age: 75 years old Clinical indication: Pain; Elbow; Right; Additional info: Fall TECHNIQUE: Imaging protocol: Radiologic exam of the right elbow. Views: 3 or more views. COMPARISON: US - CA VENOUS DOPPLER UE RT 12/18/2023 12:58 PM FINDINGS: Bones/joints: Normal. Soft tissues: Normal. IMPRESSION: No acute findings.
--- NOTE | 2025-08-02 00:42 | XR_ITS ---
PROCEDURE INFORMATION: Exam: XR Left Elbow Exam date and time: 08/02/2025 1:07 AM Age: 75 years old Clinical indication: Pain; Elbow; Left; Additional info: Fall TECHNIQUE: Imaging protocol: Radiologic exam of the left elbow. Views: 3 or more views. COMPARISON: CR XR FOREARM LT 2V 12/12/2023 12:41 PM FINDINGS: Bones/joints: No acute fracture or dislocation. Soft tissues: Soft tissue swelling involving the medial elbow. IMPRESSION: Soft tissue swelling medial elbow but no underlying acute fracture or dislocation
--- NOTE | 2025-08-02 00:42 | XR_ITS ---
PROCEDURE INFORMATION: Exam: XR Left Tibia and Fibula Exam date and time: 08/02/2025 1:07 AM Age: 75 years old Clinical indication: Pain; Lower leg; Left; Additional info: Fall TECHNIQUE: Imaging protocol: Radiologic exam of the left tibia and fibula. Views: 2 views. COMPARISON: CR XR FOOT LT MIN 3V 08/02/2025 1:07 AM FINDINGS: Bones/joints: Normal. No acute fracture or dislocation Soft tissues: Scattered ramez medially. IMPRESSION: No acute findings.
--- NOTE | 2025-08-02 00:44 | XR_ITS ---
PROCEDURE INFORMATION: Exam: XR Right Foot Exam date and time: 08/02/2025 1:07 AM Age: 75 years old Clinical indication: Pain; Foot; Right; Additional info: Fall TECHNIQUE: Imaging protocol: Radiologic exam of the right foot. Views: 3 or more views. COMPARISON: CR XR TIBIA FIBULA RT 2V 08/02/2025 1:07 AM FINDINGS: Bones/joints: Normal. Soft tissues: Normal. IMPRESSION: No acute findings.
--- NOTE | 2025-08-02 00:44 | XR_ITS ---
PROCEDURE INFORMATION: Exam: XR Left Foot Exam date and time: 08/02/2025 1:07 AM Age: 75 years old Clinical indication: Pain; Foot; Left; Additional info: Fall TECHNIQUE: Imaging protocol: Radiologic exam of the left foot. Views: 3 or more views. COMPARISON: CR XR TIBIA FIBULA LT 2V 08/02/2025 1:07 AM FINDINGS: Bones/joints: Normal. Soft tissues: Normal. IMPRESSION: No acute findings.
--- NOTE | 2025-08-02 00:45 | PC.NURSE ---
Pt awake alert and oriented Skin pale cool and dry Multiple bruises in various states of healing noted over entire body. Resp full and slightly labored Speech clear and appropriate Pt on 5lpm nasal cannula. Pt states she wears 4 liters at baseline Code status confirmed with client with MD at bedside.
--- NOTE | 2025-08-02 00:46 | CT_ITS ---
PROCEDURE INFORMATION: Exam: CT Maxillofacial Without Contrast Exam date and time: 08/02/2025 1:43 AM Age: 75 years old Clinical indication: Injury or trauma; Additional info: Fall TECHNIQUE: Imaging protocol: Computed tomography of the face without contrast. Radiation optimization: All CT scans at this facility use at least one of these dose optimization techniques: automated exposure control; mA and/or kV adjustment per patient size (includes targeted exams where dose is matched to clinical indication); or iterative reconstruction. COMPARISON: 1. CT HEAD/BRAIN WO CON 08/02/2025 1:[address] ANGIO HEAD 10/31/2023 5:33 PM FINDINGS: Paranasal sinuses: Mild mucosal thickening in the left maxillary sinus with air-fluid levels in the left maxillary and left sphenoid sinuses. Orbital cavities: No acute intraorbital injury. Status post bilateral intra-ocular lens replacement. Bones: No acute fracture. Soft tissues: Unremarkable. IMPRESSION: No acute fracture.
--- NOTE | 2025-08-02 00:46 | HMH.EDGENADL ---
Discharge Plan Disposition Patient Disposition: Home, Self-Care Prescriptions Prescriptions: No Action metoprolol succinate 25 mg tablet extended release 24 hr 12.5 mg PO HS fluoxetine 40 mg capsule 40 mg PO DAILY Patient Comments: TAKE 1 CAPSULE 1 TIME EACH DAY azithromycin 250 mg tablet 250 mg PO Patient Comments: TAKE 1 TABLET ON FRIDAY, FRIDAY AND FRIDAY. clonazepam 0.5 mg tablet 0.5 mg PO DIRECTED Patient Comments: TAKE 1 TABLET 3 TIMES EACH DAY Rx Instructions: Take 1 tablet in am and 2 at pm morphine concentrate 10 mg/0.5 mL solution 10 mg PO TIDP PRN (Reason: Shortness Of Breath) Linzess 290 mcg capsule 290 mcg PO DAILY PRN (Reason: Abdominal Discomfort) metoclopramide HCl 10 mg tablet 10 mg PO BIDWMEAL Qty: 60 4RF Rx Instructions: administer 30 minutes before meals cholecalciferol (vitamin D3) 25 mcg (1,000 unit) capsule 25 mcg PO DAILY formoterol fumarate [Perforomist] 20 mcg/2 mL solution for nebulization 2 ml inhalation BID 90 Days Qty: 180 3RF budesonide 0.5 mg/2 mL suspension for nebulization 0.5 mg inhalation Q12H Qty: 180 3RF albuterol sulfate 2.5 mg /3 mL (0.083 %) solution for nebulization 2.5 mg inhalation Q4H PRN (Reason: shortness of breath or wheezing) Qty: 75 2RF aspirin 81 MG tablet,delayed release (DR/EC) 81 mg PO HS Trelegy Ellipta 200-62.5-25 mcg Blister With Device 1 inh INHALATION DAILY esomeprazole magnesium 20 mg capsule,delayed release(DR/EC) 20 mg PO BID Patient Comments: TAKE 1 CAPSULE 2 TIMES EACH DAY albuterol sulfate 2.5 mg /3 mL (0.083 %) Solution For Nebulization 2.5 mg inhalation NEEDED PRN (Reason: Breathing Problems) magnesium Tablet 1 tab PO DAILY Rx Instructions: unknown dose bumetanide 1 mg Tablet 0.5 mg PO DAILY 30 Days Qty: 15 0RF spironolactone 25 mg tablet 12.5 mg PO DAILY 30 Days Qty: 15 0RF prednisone 20 mg tablet 20 mg PO BID 14 Days Qty: 28 0RF atorvastatin 40 MG tablet 40 mg PO HS budesonide 0.5 mg/2 mL suspension for nebulization 0.5 mg inhalation Q12H benzonatate 100 mg capsule 100 mg PO TID PRN (Reason: cough) 5 Days Qty: 20 0RF albuterol sulfate 90 mcg/actuation HFA aerosol inhaler 4 inh inhalation Q4H PRN (Reason: shortness of breath or wheezing) Qty: 8.5 0RF Rx Instructions: 4 puffs every 4 hours for 48 hours then as needed for shortness of breath or wheezing following amoxicillin-pot clavulanate 875-125 mg tablet 1 tab PO BID 7 Days Qty: 14 0RF Referrals Follow up/Referrals: Ephraim Lombardo MD [Primary Care Provider, Internal Medicine] - See instructions Activity Restrictions/Add. Instructions Additional Instructions/Restrictions: Please follow-up with your primary care provider. Please return to the emergency department if you develop any new or worsening symptoms or become concerned for your health. Clinical Impressions Clinical Impression: Fall, Laceration, Facial bruising Print Language Print Language: Mongolian Discharge ED Provider: Selvin Almodovar Adult HPI General Chief complaint: Fall Stated complaint: fall Time Seen by Provider: 08/02/25 00:46 Mode of Arrival: EMS Source of Information: EMS Description of Symptoms (Recalled from ER Triage Doc. by RN): Pt fell from bed. Has multiple skin tears to elbows, knees, right hand and nose History of Present Illness HPI narrative: 75-year-old female on hospice for COPD presents after a fall out of bed. She has been bruising to the nose, skin tears to the bilateral elbows and knees and the right hand. She reports pain in her right abdomen and has a small bruise there. Her bed is approximately 3 feet high. She fell onto a hardwood floor. She was short of breath en route. Received 10 mg of oral morphine at home prior to leaving with EMS. Related Data Home Medications ?Medication ?Instructions ?Recorded ?Confirmed aspirin 81 mg tablet,delayed 81 mg PO HS 01/30/19 01/06/25 release atorvastatin 40 mg tablet 40 mg PO HS 12/17/21 01/06/25 cholecalciferol (vitamin D3) 25 25 mcg PO DAILY 04/25/22 01/06/25 mcg (1,000 unit) capsule metoprolol succinate 25 mg 12.5 mg PO HS 04/25/22 01/06/25 tablet,extended release 24 hr budesonide 0.5 mg/2 mL suspension 0.5 mg inhalation Q12H 04/10/23 01/06/25 for nebulization fluticasone fur. 200 mcg-umeclid 1 inh inhalation DAILY 09/30/24 01/06/25 62.5 mcg-vilant 25 mcg inhalat.powder (Trelegy Ellipta) azithromycin 250 mg tablet 250 mg PO MOWEFR 12/01/24 01/06/25 clonazepam 0.5 mg tablet 0.5 mg PO DIRECTED 12/01/24 01/06/25 fluoxetine 40 mg capsule 40 mg PO DAILY 12/01/24 01/06/25 linaclotide 290 mcg capsule 290 mcg PO DAILY PRN Abdominal 12/01/24 01/06/25 (Linzess) Discomfort morphine concentrate 10 mg/0.5 mL 10 mg PO TIDP PRN Shortness Of 12/01/24 01/06/25 oral solution Breath albuterol sulfate 2.5 mg/3 mL 2.5 mg inhalation NEEDED PRN 12/06/24 01/06/25 (0.083 %) solution for nebulization Breathing Problems esomeprazole magnesium 20 mg 20 mg PO BID 12/06/24 01/06/25 capsule,delayed release magnesium 1 tab PO DAILY 12/06/24 01/06/25 Previous Rx's ?Medication ?Instructions ?Recorded formoterol fumarate 20 mcg/2 mL 2 ml inhalation BID 90 days #180 mL 02/09/24 solution for nebulization (Perforomist) metoclopramide HCl 10 mg tablet 10 mg PO BIDWMEAL #60 tabs 12/01/24 bumetanide 1 mg tablet 0.5 mg (1/2 x 1 mg) PO DAILY 30 12/07/24 days #15 tabs spironolactone 25 mg tablet 12.5 mg (1/2 x 25 mg) PO DAILY 30 12/07/24 days #15 tabs albuterol sulfate 2.5 mg/3 mL 2.5 mg (3 mL) inhalation Q4H PRN 01/20/25 (0.083 %) solution for nebulization shortness of breath or wheezing #75 mL budesonide 0.5 mg/2 mL suspension 0.5 mg (2 mL) inhalation Q12H #180 01/20/25 for nebulization mL prednisone 20 mg tablet 20 mg PO BID 14 days #28 tabs 06/15/25 albuterol sulfate 90 mcg/actuation 4 inh inhalation Q4H PRN shortness 07/15/25 aerosol inhaler of breath or wheezing #8.5 grams amoxicillin 875 mg-potassium 1 tab PO BID 7 days #14 tabs 07/15/25 clavulanate 125 mg tablet benzonatate 100 mg capsule 100 mg PO TID PRN cough 5 days #20 07/15/25 caps Allergies Allergy/AdvReac Type Severity Reaction Status Date / Time No Known Allergies Allergy Verified 01/06/25 14:28 [facility] Disclaimer: The information contained in this section may have been updated after the patient was seen, as this information can be updated by other users. Medical History History of adenomatous polyp of colon Esophageal dysmotility Heartburn Bloating Chronic constipation Dysphagia Pre-op testing Atypical angina Diastolic dysfunction Dysphagia Stopped smoking with greater than 30 pack year history Multiple pulmonary nodules Eosinophilia Chronic hypoxemic respiratory failure Dyspnea on exertion Congestive heart failure Acute exacerbation of CHF (congestive heart failure) Coronary atherosclerosis of [place] coronary artery Acute systolic CHF (congestive heart failure) NSTEMI (non-ST elevated myocardial infarction) CKD (chronic kidney disease) Tobacco dependence Acute exacerbation of chronic obstructive airways disease Atypical chest pain Bradycardia Carotid artery stenosis HLD (hyperlipidemia) COPD (chronic obstructive pulmonary disease) Surgical History History of coronary artery stent placement History of hysterectomy History of colonoscopy History of esophagogastroduodenoscopy (EGD) History of lumpectomy No significant past surgical history Family History Other Cancer Family history of GERD Family history of arthritis Family history of hyperlipidemia Family history of hypertension Heart attack Social History Smoking Status: Unknown if ever smoked second hand exposure: No alcohol intake: never substance use type: denies use 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al status: retired Travel in the last 8 weeks?: None housing: house marital status: 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al exposures/hazards: No caffeine: Yes Have you lived/traveled outside [place] in past 30 days?: No Contact w/someone who lives/traveled outside US past 30 days?: No Exposure to someone with infectious disease in past 14 days?: No Do you have a fever (greater than 100.4 F or 38 C)?: No Have you tested positive for COVID-19?: No Exposed to someone with COVID-19 in past 14 days?: No Do you have a sore throat?: No Do you have a cough?: No Do you have any weakness?: No Do you have any diarrhea?: No Are you experiencing any unusual bleeding?: No Do you have any muscle aches/pain?: No Do you have any abdominal pain?: No Are you experiencing loss of taste or smell?: No Other Medical History Have you received the Flu Vaccine for this season: No Have you received the Pneumonia Vaccine: Yes ROS Obtained: Yes All systems reviewed & no additional complaints except as documented Physical Exam General General appearance: alert and anxious Head Head exam: normocephalic and other (Bruising to the nose) Eye Eye exam: Present normal appearance, PERRL and EOMI ENT ENT exam: Present normal oropharynx and normal external ear exam Neck Neck exam: Present normal inspection and full ROM; Absent tenderness Chest Chest inspection: Present normal inspection, symmetric chest wall rise and tenderness Respiratory Respiratory exam: Present wheezes and accessory muscle use Cardiovascular Cardiovascular exam: Present regular rate and normal rhythm Abdominal Exam Abdominal exam: Present soft and tenderness (Bruising to the right abdomen); Absent distention or guarding Extremities Exam Extremities exam: Present tenderness (Generalized tenderness to the bilateral upper and lower extremities. Skin tears to the bilateral elbows and knees and the right hand.) Back Exam Back exam: Present normal inspection and tenderness Neurological Exam Neurological exam: Present alert and oriented X3; Absent motor sensory deficit Psychiatric Psychiatric exam: Present anxious Skin Skin exam: Present warm, dry and normal color Lymphatic Lymphatic Findings: no adenopathy Medical Decision Making Medical Records Medical records reviewed: Yes I reviewed the patient's medical records. Screening: Per USPSTF and CDC recommendations, given the prevalence of disease in our region, it is our hospital?s policy to screen for HIV and viral Hepatitis for all patients aged 18 and over and those with ongoing risk factors. Noble Inquiry Pt receiving controlled substance: No Noble was queried for this patient: No Vital Signs: 08/02/25 00:32 08/02/25 00:45 08/02/25 01:00 Temperature 98.0 F Temperature Source Oral Pulse Rate 86 Pulse Rate [Right Radial] 88 Respiratory Rate 16 Blood Pressure 117/70 Blood Pressure [Right Arm] 131/71 Blood Pressure Mean 78 Blood Pressure Mean [Right Arm] 91 Blood Pressure Source [Right Arm] Automatic Cuff Blood Pressure Position [Right Arm] Sitting 02 Sat by Pulse Oximetry 88 L 92 L Oxygen Delivery Method Room Air Oxygen Flow Rate (LPM) 08/02/25 01:00 08/02/25 02:13 08/02/25 02:13 Temperature Temperature Source Pulse Rate 82 76 Pulse Rate [Right Radial] Respiratory Rate Blood Pressure Blood Pressure [Right Arm] Blood Pressure Mean Blood Pressure Mean [Right Arm] Blood Pressure Source [Right Arm] Blood Pressure Position [Right Arm] 02 Sat by Pulse Oximetry 86 L 98 Oxygen Delivery Method Nasal Cannula Oxygen Flow Rate (LPM) 4 08/02/25 02:13 08/02/25 02:23 08/02/25 02:23 Temperature Temperature Source Pulse Rate 76 71 Pulse Rate [Right Radial] Respiratory Rate Blood Pressure 132/41 L Blood Pressure [Right Arm] Blood Pressure Mean 78 Blood Pressure Mean [Right Arm] Blood Pressure Source [Right Arm] Blood Pressure Position [Right Arm] 02 Sat by Pulse Oximetry 97 Oxygen Delivery Method Oxygen Flow Rate (LPM) 08/02/25 02:45 08/02/25 02:45 08/02/25 03:32 Temperature 98.1 F Temperature Source Oral Pulse Rate 71 73 Pulse Rate [Right Radial] Respiratory Rate 15 Blood Pressure 100/41 L 110/41 L Blood Pressure [Right Arm] Blood Pressure Mean 66 Blood Pressure Mean [Right Arm] Blood Pressure Source [Right Arm] Blood Pressure Position [Right Arm] 02 Sat by Pulse Oximetry 98 Oxygen Delivery Method Nasal Cannula Oxygen Flow Rate (LPM) 5 Lab Data Lab results reviewed: Yes I reviewed the patient's lab results. Lab Results 08/02/25 00:50: WBC 21.7 H*, RBC 3.39 L, Hgb 9.8 L, Hct 32.5 L, MCV 95.9, MCH 28.9, MCHC 30.2 L, RDW 14.4, Plt Count 272, MPV 10.1, Neut % (Auto) 82.8 H, Lymph % (Auto) 8.8 L, [place] % (Auto) 5.7, Eos % (Auto) 1.0, Baso % (Auto) 0.5, Neut # (Auto) 18.0 H, Lymph # (Auto) 1.9, [place] # (Auto) 1.2 H, Eos # (Auto) 0.2, Baso # (Auto) 0.1, PT 11.8, INR 1.07, Sodium 135 L, Potassium 4.5, Chloride 95 L, Carbon Dioxide 34 H, Anion Gap 10.5, BUN 17, Creatinine 1.10 H, Estimated Creat Clear 49, Estimated GFR 49 L, Est GFR ( Amer) 59, Glucose 124 H, Calcium 8.7, Total Bilirubin 1.1, AST 44 H, ALT 23, Alkaline Phosphatase 119, Total Protein 5.8 L, Albumin 3.4 L, Globulin 2.4, Albumin/Globulin Ratio 1.4, HIV Ag/Ab Combo Qual Negative 08/02/25 00:50 08/02/25 00:50 Orders (Tests/Meds): ED MEDICATIONS Discontinued Medications Generic Name Dose Route Start Last Admin Trade Name Jamesq PRN Reason Stop Dose Admin Acetaminophen 1,000 mg 08/02/25 00:37 08/02/25 00:49 Acetaminophen 500mg Tab PO 08/02/25 00:38 1,000 mg ONCE ONE Administration Albuterol/Ipratropium 6 ml 08/02/25 01:03 08/02/25 02:12 Ipratropium/Albuterol 3 Ml Neb IH 08/02/25 01:04 6 ml ONCE ONE Administration Iopamidol 160 ml 08/02/25 02:08 08/02/25 02:09 Iopamidol-370 (76%);100ml Bottle IV 08/02/25 02:09 160 ml ONCE ONE Administration Ketorolac Tromethamine 15 mg 08/02/25 00:37 08/02/25 00:49 Ketorolac 15mg/Ml Vial IV 08/02/25 00:38 15 mg ONCE ONE Administration Morphine Sulfate 4 mg 08/02/25 00:37 08/02/25 00:49 Morphine 4mg/Ml Syringe IV 08/02/25 00:38 4 mg ONCE ONE Administration Sodium Chloride 100 ml 08/02/25 02:08 08/02/25 02:09 0.9 % Sodium Chloride 50 Ml Vial IV 08/02/25 02:09 100 ml ONCE ONE Administration Sodium Chloride 10 ml 08/02/25 02:08 08/02/25 02:09 Sodium Chloride 0.9% 10ml Syr (Rad Only) IV 08/02/25 02:09 10 ml ONCE ONE Administration ORDERS Category Date Time Status CT angio abd/pel - TRAUMA Stat Cat Scan 08/02/25 00:[address] angio chest - dissection Stat Cat Scan 08/02/25 00:[address] angio head Stat Cat Scan 08/02/25 00:[address] angio neck Stat Cat Scan 08/02/25 00:[address] cervical spine wo con Stat Cat Scan 08/02/25 00:[address] facial bones wo con Stat Cat Scan 08/02/25 00:[address] head/brain wo con Stat Cat Scan 08/02/25 00:[address] lumbar spine wo con Stat Cat Scan 08/02/25 00:[address] thoracic spine wo con Stat Cat Scan 08/02/25 00:38 Completed Elbow XR left mininum 3 views [XR elbow LT min 3V] Stat Exams 08/02/25 00:42 Completed Elbow XR right minimum 3 views [XR elbow RT min 3V] Exams 08/02/25 00:42 Completed Stat Femur XR left 2 views [XR femur LT 2V] Stat Exams 08/02/25 00:42 Completed Femur XR right 2 views [XR femur RT 2V] Stat Exams 08/02/25 00:42 Completed Fibula/tibia XR left 2 views [XR tibia fibula LT 2V] Exams 08/02/25 00:42 Completed Stat Fibula/tibia XR right 2 views [XR tibia fibula RT 2V] Exams 08/02/25 00:42 Completed Stat Foot XR left minimum 3 views [XR foot LT min 3V] Stat Exams 08/02/25 00:44 Completed Foot XR right minimum 3 views [XR foot RT min 3V] Stat Exams 08/02/25 00:44 Completed CBC w/Auto Diff [Complete Blood Count Auto Diff] Stat Lab 08/02/25 00:50 Completed CMP [Comprehensive Metabolic Panel] Stat Lab 08/02/25 00:50 Completed HIV Combo Stat Lab 08/02/25 00:50 Completed INR [Prothrombin Time INR] Stat Lab 08/02/25 00:50 Completed Medical Decision Narrative: 75-year-old female on hospice for end-stage COPD presents after a fall with multiple bruises and lacerations and chest and abdominal pain. History was obtained via interactive discussion with patient. On arrival, patient is afebrile, normotensive, satting high 80s on 4 L nasal cannula, moving all extremities spontaneously. Full physical exam performed and significant for traumatic findings as documented above. Differential includes but is not limited to cranial trauma and thoracic trauma intra-abdominal trauma spinal trauma extremity trauma. Patient was given DuoNeb x 2, morphine, Tylenol for symptomatic management and correction of underlying abnormalities. Workup initiated including basic labs, full trauma scans, radiographs of the affected extremities. On re-evaluation, patient reports improvement in her pain. Her skin tears were cleaned and approximated, no indication for laceration repair given the thinness of the skin. Laboratory workup independently interpreted by me and significant for significant leukocytosis, stable anemia. Imaging independently interpreted by me and significant for no evidence of intracranial bleeding, no rib fractures, no intra-abdominal trauma, no fractures to the affected extremities. See radiology read for full review of final results. Given patient history, exam and workup, patient's presentation most likely represents fall with multiple skin tears and bruising, no serious traumatic injuries noted. These findings were communicated with patient and family and she was discharged in stable condition back home.. Procedures Risk/Benefits of Procedure(s) Were Explained: Yes Critical Care Critical Care Time Critical Care Time: No
--- NOTE | 2025-08-02 00:47 | PC.NURSE ---
Hospice called back and said they will call back in an hour or so.
[2025-08-02] MEDS: MORPHINE 4MG/ML SYRINGE 4 MG IV (00:49)
[2025-08-02] MEDS: ACETAMINOPHEN 500MG TAB 1000 MG PO (00:49)
[2025-08-02] MEDS: KETOROLAC 15MG/ML VIAL 15 MG IV (00:49)
--- OUTSIDE RECORDS SUMMARY | 2025-08-02 00:52 | XMS_ITS | Clinical Summary ---
Author Organization [facility] Address [address] [place] [address] Care Team Providers Care Mortgage Professional Name Role Phone Ephraim Lombardo MD Primary Care Provider [phone] Allergies No known active allergies Medications amLODIPine (NORVASC) 5 MG tablet Take 5 mg by mouth Daily. 0 12/15/2018 Active vitamin D (ERGOCALCIFEROL ) 03293 units capsule capsule TAKE ONE CAPSULE 2 [...] 2025, 12/19/2020 Insurance MEDICARE A & B [facility] [employer] [facility] SUP Care Teams Mortgage Professional Relationship Specialty Start Date End Date Ephraim Lombardo MD [address] [facility] [address] [place] [address] PCP - General Adolescent Medicine 01/12/19
--- OUTSIDE RECORDS SUMMARY | 2025-08-02 00:53 | XMS_ITS | Patient Health Record ---
Author Organization [facility] Address [address] [place] [address] Care Team Providers Care J2Ee Android Developer Name Role Phone Ephraim Lombardo Primary Care Provider McSandy Ramosi Unavailable [phone] Migration, Provider Unavailable Unavailable Allergies No Known Allergies Results Component Value Reference Range Notes M-Comprehensive Metabolic Pa jean Reviewed date:12/22/2024 04:13:19 [...] 0.1 0.0-0.4 K/mm3 BA# 0.0 0-0.2 K/mm3 M-Magnesium Reviewed date:12/22/2024 04:13:19 PM Interpretation: Performing Lab: Notes/Report: MG 1.7 1.6-2.3 mg/dl H-TVITD Reviewed date:12/07/2024 10:45:50 AM Interpretation: Performing Lab: Notes/Report: TVITD 30.4 30-100 ng/mL Deficient <20 ng/mL Insufficient 20-30 ng/mL Sufficient 30-100 ng/mL Potential Toxicity >100 ng/mL H-VITB12 Reviewed date:12/07/2024 10:45:43 AM Interpretation: Performing Lab: Notes/Report: VITB12 738 239-931 pg/mL M-Comprehensive Metabolic Pa jean Reviewed date:03/23/2025 04:42:39 PM Interpretation: Performing Lab: Notes/Report: CALL [phone] WITH CRITICALS NA 137 136-145 mmol/L K [...] AGRATIO 1.7 1.1-1.8 ALP 64 38-126 U/L Rapid Covid/Flu A-B Combo Reviewed date:10/21/2024 04:50:01 PM Interpretation: Performing Lab: Notes/Report: Rapid Covid eg Flu A neg Flu B neg Rapid Covid/Flu A-B Combo Reviewed date:11/23/2024 04:08:24 PM Interpretation: Performing Lab: Notes/Report: Rapid Covid neg Flu A neg Flu B neg Medications Medication SIG (Take, Route, Frequency, Duration) Notes Start Date End Date Status Morphine Sulfate (Concentrate) 20 MG/ML 1 ML orally every 4 hours; Duration: 30 days 12/10/2024 Active levoFLOXacin 500 MG 1 tablet Orally Once a day; Duration: 7 days 07/27/2025 Active Budesonide 0.5 MG/2ML 2 ml by [...] and drug interaction check* 08/02/2024 Active Biotin 26465 MCG 1 TAB(S) ORALLY ONCE A DAY *Please review and pick correct strength-formulat ion from [employer] options. If intended option is not shown, discontinue and re-order from Quick Search* Active Nitroglycerin 0.4 MG 1 tab(s) sublingually every 5 minutes; Duration: 30 days 01/08/2022 Active Senna 8.6 MG 1 tab(s) orally once a day (at bedtime) prn Active OXYGEN 2 LITERS DIRECTED DAILY DX: COPD *Carmela wolf review for potential replacement for e-prescription and drug interaction check* 09/18/2021 Active Spironolactone 25 MG 1/2 tab orally [...] review and pick correct strength-formulat ion from [employer] options. If intended option is not shown, discontinue and re-order from Quick Search* Active Magnesium 400MG 1 TABLET ONCE A DAY *Please revi ew and pick correct strength-formulat ion from [employer] options. If intended option is not shown, discontinue and re-order from Quick Search* Active Atorvastatin Calcium 40 MG 1 tab(s) orally once a day; Duration: 90 days Active clonazePAM 0.5 MG 1 tab(s) orally twice a day; Duration: 30 days 11/07/2024 Active predniSONE 10 MG 1-2 tabs orally daily; Duration: 30 days As needed Active NexIUM 40 MG 1 cap(s) orally twice a day; Duration: 90 days Active Acyclovir 800 MG 1 tab(s) orally 3 times a day; Duration: 7 days prn 04/21/2024 Active Immunizations Vaccine Route Administration Date Status Comme nts Covid Pfizer Unknown 06/28/2021 Administered Covid Pfizer Unknown 01/09/2021 Administered Covid Pfizer Unknown 12/19/2020 Administered Fluzone High Dose IM Intramuscular 09/07/2019 Administered Fluvirin--Influenza vaccine 3+ year Unknown 09/09/2007 Administered SHINGRIX IM Intramuscular 07/08/2023 Administered Prevnar PCV-20 (Pneumococcal conjugate 20) IM Intramuscular 01/13/2024 Administered PPD SC Subcutaneous 06/13/2011 Administered Fluzone High Dose IM Intramuscular 09/02/2023 Administered Fluvirin--Influenza vaccine 3+ year Unknown 07/31/2012 Administered Adacel (Tdap) Unknown 04/30/2010 Administered SHINGRIX IM Intramuscular 08/03/2024 Administered Fluzone High Dose IM Intramuscular 08/03/2024 Administered Influenza-Fluzone 3+years (NON-MEDICARE) IM Intramuscular 08/13/2016 Administered Fluzone High Dose IM Intramuscular 08/27/2018 Administered Fluzone High Dose IM Intramuscular 09/08/2020 Administered Fluzone High Dose IM Intramuscular 09/06/2021 Administered Fluzone High Dose IM Intramuscular 07/23/2022 Administered H1N1 Vaccine IM Intramuscular 08/18/2009 Administered Fluvirin--Influenza vaccine 3+ year Unknown 07/31/2009 Administered Fluvirin--Influenza vaccine 3+ year Unknown 08/31/2010 Administered Fluvirin--Influenza vaccine 3+ year Unknown 08/30/2013 Administered Pneumovax-23 (pneumococccal vaccine polyvalent)2 years or older Unknown 07/14/2014 Administered Influenza-Fluzone 3+years (NON-MEDICARE) IM Intramuscular 08/29/2015 Administered Fluvirin--Influenza vaccine 3+ year IM Intramuscular 08/23/2011 Administered Fluvirin--Influenza vaccine 3+ year IM Intramuscular 08/22/2014 Administered Fluvirin--Influenza vaccine 3+ year Unknown 08/24/2008 Administered Social History Tobacco Use: Social History Observation Description Date Details (start date - stop date) Former Smoker NA - NA Smoking: Question Answer Notes Are you a: former smoker How long has it been since you last smoked? 1-3 months Problems Problem Type SNOMED Code ICD Code Onset Dates Problem Status W/U Status Risk Notes Problem Hypomagnesemia (035332413) Hypomagnesemia (E83.42) Active confirmed Problem Generalized anxiety disorder (71538498) Generalized anxiety disorder (F41.1) Active confirmed Problem Hypertensive heart failure (72443122) Hypertensive heart disease with heart failure (I11.0) Active confirmed Problem Acute non-ST segment elevation myocardial infarction (127951999) Non-ST elevation (NSTEMI) myocardial infarction (I21.4) Active confirmed Problem Unstable angina co-occurrent and due to coronary arteriosclerosis (36975395825606719) Atherosclerotic heart disease of [place] coronary artery with unstable angina pectoris (I25.110) Active confirmed Problem Ischemic cardiomyopathy (401292773) Ischemic cardiomyopathy (I25.5) Active confirmed Problem Acute systolic heart failure (574246695) Acute systolic (congestive) heart failure (I50.21) Active confirmed Problem Acute on chronic systolic heart failure (086133964) Acute on chronic systolic (congestive) heart failure (I50.23) Active confirmed Problem Acute on chronic combined systolic and diastolic heart failure (712805864462397) Acute on chronic combined systolic (congestive) and diastolic (congestive) heart failure (I50.43) Active confirmed Problem Carotid artery occlusion (829915362) Occlusion and stenosis of unspecified carotid artery (I65.29) Active confirmed Problem Simple chronic bronchitis (08378878) Simple chronic bronchitis (J41.0) Active confirmed Problem Panlobular emphysema (8827405) Panlobular emphysema (J43.1) Active confirmed Problem Chronic respiratory failure (06163496) Chronic respiratory failure, unspecified whether with hypoxia or hypercapnia (J96.10) Active confirmed Problem Fibromyalgia (768134250) Fibromyalgia (M79.7) Active confirmed Problem Long-term current use of antithrombotic (145213771107299) termination clerk (current) use of antithrombotics/an tiplatelets (Z79.02) Active confirmed Problem Presence of coronary angioplasty implant and graft (Z95.5) Active confirmed Problem Dependence on supplemental oxygen (043814252255) Dependence on supplemental oxygen (Z99.81) Active confirmed Problem Vitamin D deficiency (38537656) Vitamin D deficiency (E55.9) Active confirmed Problem Hyperlipidemia (23149471) Hyperlipidemia (E78.5) Active confirmed Problem Hyperlipidemia (64767619) Hyperlipemia, idiopathic familial (E78.5) Active confirmed Problem Essential hypertension (62884629) Hypertension, essential (I10) Active confirmed Problem Acute exacerbation of chronic obstructive airways disease (510583047) COPD exacerbation (J44.1) Active confirmed Problem Systolic heart failure (212932896) Systolic CHF with reduced left ventricular function, NYHA class 3 (I50.20) Active confirmed Problem Gastroesophageal reflux disease without esophagitis (866627943) Gastroesophageal reflux disease without esophagitis (K21.9) Active confirmed Problem Atherosclerosis of coronary artery without angina pectoris (415572496475952) Atherosclerosis of [place] coronary artery of [place] heart without angina pectoris (I25.10) Active confirmed Problem Memory loss (58686378) Memory loss (R41.3) Active confirmed Problem Dysthymia (72584196) Dysthymia (F34.1) Active confirmed Problem Recurrent sinusitis (102228567) Recurrent sinusitis (J32.9) Active confirmed Problem Mood disorder (26891209) Mood disorder (F39) Active confirmed Problem Carotid artery stenosis (56157737) Carotid stenosis (I65.29) Active confirmed Problem Anxiety state (072204905) Acute anxiety (F41.9) Active confirmed Problem Atherosclerosis of both carotid arteries (826263636710791) Atherosclerosis of both carotid arteries (I65.23) Active confirmed Problem Carotid artery occlusion (951676683) Stenosis of carotid artery, unspecified laterality (I65.29) Active confirmed Problem Recurrent major depression in remission (53482871) Recurrent major depressive disorder, in partial remission (F33.41) Active confirmed Problem Atherosclerotic heart disease of [place] coronary artery without angina pectoris (180417105976225) Atherosclerotic heart disease (I25.10) Active confirmed Problem Mixed hyperlipidemia (038222495) Hyperlipemia, mixed (E78.2) Active confirmed Problem Malignant neoplasm of skin (disorder) (682915708) Skin carcinoma (C44.99) Active confirmed Problem Chronic obstructive pulmonary disease (07281702) End stage COPD (J44.9) Active confirmed Problem Solitary sacroiliitis (135846125) SI (sacroiliac) joint inflammation (M46.1) Active confirmed Problem Rotator cuff tear arthropathy (676496686) Rotator cuff tear arthropathy (M12.819) Active confirmed Problem Malignant hypertensive chronic kidney disease (595240139687548) Hypertensive chronic kidney disease w stg 1-4/unsp chr kdny (I12.9) Active confirmed Problem Dependence on supplemental oxygen (760654589528) Oxygen dependent (Z99.81) Active confirmed Problem Irritable bowel syndrome characterized by constipation (591094726) Irritable bowel syndrome with constipation (K58.1) Active confirmed Problem Altered mental status (562890287) Altered mental status, unspecified altered mental status type (R41.82) Active confirmed Problem Old myocardial infarction (4091252) History of [place] (myocardial infarction) (I25.2) Active confirmed Problem Chronic renal failure syndrome (55471510) Chronic kidney disease, unspecified CKD stage (N18.9) Active confirmed Problem Atherosclerotic heart disease of [place] coronary artery without angina pectoris (389053188905281) Atherosclerosis of [place] coronary artery without angina pectoris, unspecified whether [place] or transplanted heart (I25.10) Active confirmed Problem Mild major depression, single episode (78968694) Current mild episode of major depressive disorder without prior episode (F32.0) Active confirmed Problem Left hemiplegia (131897207) Left hemiplegia (G81.94) Active confirmed Problem Occlusion and stenosis of multiple and bilateral cerebral arteries (123728921) Calcification of both carotid arteries (I65.23) Active confirmed Problem Stenosis of left vertebral artery (809819820) Stenosis of left vertebral artery (I65.02) Active confirmed Problem Chronic hypoxemic respiratory failure (748013945) Chronic hypoxemic respiratory failure (J96.11) Active confirmed Problem Panacinar emphysema (0032598) 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) Active confirmed Problem Atrophic gastritis (64563910) Chronic gastritis, presence of bleeding unspecified, unspecified gastritis type (K29.50) Active confirmed Vital Signs Heart Rate 60 /min 07/22/2025 Temperature 98 degrees Fahrenheit 07/22/2025 Oximetry 94 10/21/2024 94 % on 4L Blood pressure diastolic 62 mm Hg 07/12/2025 Height 68 in 07/22/2025 Blood pressure systolic 115 mm Hg 07/12/2025 Weight 155 lbs 07/12/2025 BMI 23.57 kg/m2 07/12/2025 Encounters Encounter Location Date Provider Diagnosis [facility] [address] [place] [address] 01/29/2025 Provider Migration [facility] [address] [address] 08/03/2024 Ephraim Lombardo COPD with chronic bronchitis J44.9 ; Dysthymia F34.1 ; Immunization(s) administered Z23 and Encounter for immunization Z23 [address] [address] 09/14/2024 Ephraim Lombardo COPD exacerbation J44.1 [facility] [address] [address] 10/21/2024 Ephraim Besson Shortness of breath R06.02 [facility] [address] [address] 10/26/2024 Ephraim Besson Chronic respiratory failure, unspecified whether with hypoxia or hypercapnia J96.10 and Shortness of breath R06.02 [facility] [address] [address] 11/16/2024 Ephraim Besson COPD with chronic bronchitis J44.9 [facility] [address] [address] 11/23/2024 Ephraimtushar Lombardo Subacute cough R05.2 and COPD exacerbation J44.1 [facility] [address] [address] 12/09/2024 Ephraim Besson End stage COPD J44.9 ; Systolic CHF with reduced left ventricular function, NYHA class 3 I50.20 ; Generalized anxiety disorder F41.1 ; Recurrent major depressive disorder, in partial remission F33.41 and Hospital discharge follow-up Z09 [facility] [address] [address] 01/13/2025 Ephraimtushar Lombardo Atypical chest pain R07.89 ; Systolic CHF with reduced left ventricular function, NYHA class 3 I50.20 ; Chronic respiratory failure, unspecified whether with hypoxia or hypercapnia J96.10 ; Skin tear of left upper arm without complication, initial encounter S41.112A and [facility] [address] [address] 03/15/2025 Ephraim Besson End stage COPD J44.9 ; Systolic CHF with reduced left ventricular function, NYHA class 3 I50.20 ; Mood disorder F39 and Dizziness R42 [facility] [address] [address] 04/21/2025 Ephraim Besson COPD exacerbation J44.1 and Current mild episode of major depressive disorder without prior episode F32.0 [facility] [address] [address] 05/05/2025 Ephraim Besson End stage COPD J44.9 and Recurrent major depressive disorder, in partial remission F33.41 [facility] [address] [address] 07/12/2025 Ephraim Besson Other dysphagia R13. 19 ; Chronic hypoxemic respiratory failure J96.11 ; History of esophageal stricture Z87.19 ; Systolic CHF with reduced left ventricular function, NYHA class 3 I50.20 and Routine medical exam Z00.00 [facility] [address] [place] [address] 07/22/2025 Ephraim Besson Chronic hypoxemic respiratory failure J96.11 ; Panlobular emphysema J43.1 and Altered mental status, unspecified altered mental status type R41.82 [facility] [address] [place] [address] 08/02/2024 Ephraim Besson [facility] [address] [place] [address] 09/09/2024 Ephraim Besson [facility] [address] [place] [address] 09/13/2024 Ephraim Besson [facility] [address] [place] [address] 10/26/2024 Ephraim Besson [facility] [address] [place] [address] 11/02/2024 Ephraim Besson [facility] [address] [place] [address] 11/16/2024 Ephraim Besson Panacinar emphysema J43.1 [facility] [address] [place] [address] 12/07/2024 Ephraim Besson [facility] [address] [place] [address] 12/20/2024 Ephraim Besson [facility] [address] [place] [address] 12/22/2024 Ephraim Besson COPD with chronic bronchitis J44.9 and Hypomagnesemia E83.42 [facility] [address] [place] [address] 01/03/2025 Ephraim Besson [facility] [address] [place] [address] 03/16/2025 Ephraim Besson [facility] [address] [place] [address] 04/07/2025 Ephraim Besson [facility] [address] [place] [address] 05/24/2025 Ephraim Besson [facility] [address] [place] [address], [place] [address] 05/27/2025 Ephraim Besson [facility] [address] [place] [address] 06/06/2025 Ephraim Besson [facility] [address] [place] [address] 06/15/2025 Ephraim Besson [facility] [address] [place] [address] 06/15/2025 Ephraim Besson [facility] [address] [place] [address] 06/21/2025 Ephraim Besson [facility] [address] [place] [address] 06/29/2025 Ephraim Besson COPD exacerbation J44.1 [facility] [address] [place] [address] 07/18/2025 Linda Little Shortness of breath R06.02 [facility] [address] [place] [address] 07/25/2025 Ephraim Besson [facility] [address] [place] [address] 07/27/2025 Ephraim Besson Assessments Encounter Date Diagnosis (ICD Code) Assessment Notes Treatment Notes Treatment Clinical Notes Section Notes 07/18/2025 Shortness of breath (ICD-10 - R06.02) 07/22/2025 Panlobular emphysema (ICD-10 - J43.1) Stable, certainly in terminal phase see notes above 11/16/2024 Panacinar emphysema (ICD-10 - J43.1) 11/23/2024 COPD exacerbation (ICD-10 - J44.1) Discussed the etiology and expected course of COPD exacerbation. Discussed the rationale for antibiotics use and the importance of completeing the prescription as prescribed. Discussed supportive care. Discussed the signs and symptoms of worsening infection that may indicate need for reassement in clinic/ED. 11/23/2024 Subacute cough (ICD-10 - R05.2) 12/09/2024 End stage COPD (ICD-10 - J44.9) [...] COPD with chronic bronchitis (ICD-10 - J44.9) 12/09/2024 Systolic CHF with reduced left ventricular function, NYHA class 3 (ICD-10 - I50.20) See notes above, diastolic dysfunction with evidence of right heart failure, continue diuretics as indicated 01/13/2025 Systolic CHF with reduced left ventricular function, NYHA class 3 (ICD-10 - I50.20) Stable weight. Stable oxygen status. Is doing Bumex therapy when she feels like she needs it. Does not want to get too dehydrated. Currently seems euvolemic 01/13/2025 Atypical chest pain (ICD-10 - R07.89) Reviewed notes from ER, reviewed recent orthopedic visit. No medicine changes. Seems much more comfortable. 08/03/2024 Dysthymia (ICD-10 - F34.1) Mood seems [...] 's been attending pulmonary rehab from his cytology laboratory manager and I think this would be a good idea for her to participate and we have made this referral. She is really not far off from hospice referral. She is familiar with this organization as her sister use this and does not wish to use this at this point 06/29/2025 COPD exacerbation (ICD-10 - J44.1) 07/12/2025 Other dysphagia (ICD-10 - R13.19) Given patient history and ongoing symptoms needs evaluation. She is willing to do a modified barium swallow, this will be ordered. I will review this personally. Will also do an esophagram to see if this has distal stricture issues 08/03/2024 COPD with chronic bronchitis (ICD-10 - J44.9) Overall stable. Remains on oxygen. Remains on nebulizers. Administer flu and shingles today. Arexvy at pharmacy. 07/12/2025 Chronic hypoxemic respiratory failure (ICD-10 - J96.11) Overall seems pretty stable. Seems a bit more alert than normal. Using Roxanol as needed, on nebs. Following with hospice. I reviewed hospice documentation. 07/22/2025 Chronic hypoxemic respiratory failure (ICD-10 - [...] Discussed the case with her grandson and [id number] who are both in healthcare and they are in agreement with this plan. They visited with her after I did and we have talked about the case. 03/15/2025 End stage COPD (ICD-10 - J44.9) [...] They have been a good support for 03/15/2025 Systolic CHF with reduced left ventricular function, NYHA class 3 (ICD-10 - I50.20) -Pt self dc'd [facility]; given end stage COPD and [...] as above, may need endoscopy if abnormal 08/03/2024 Immunization(s) administered (ICD-10 - Z23) 10/26/2024 Shortness of breath (ICD-10 - R06.02) End-stage emphysema. Continue current therapy. Continue oxygen therapy at home. 01/13/2025 Chronic respiratory failure, unspecified whether with hypoxia or hypercapnia (ICD-10 - J96.10) On oxygen, nebs. Continues to follow with hospice at home. Stable 12/09/2024 Generalized anxiety disorder (ICD-10 - F41.1) On clonazepam and Prozac 07/22/2025 Altered mental status, unspecified altered mental status type (ICD-10 - R41.82) Still drinking water. signed DNR paperwork today which I am supportive of. I am not sure patient is able to competently make decisions today 07/12/2025 Systolic CHF with reduced left ventricular function, NYHA class 3 (ICD-10 - I50.20) Volume status seems adequate. No evidence of volume overload 12/09/2024 Recurrent major depressive disorder, in partial [...] move around under her own power and test pilot her motorized scooter back to her car with assistance 08/03/2024 Encounter for immunization (ICD-10 - Z23) 03/15/2025 Dizziness (ICD-10 - R42) -Last week woke up early, felt come fogginess and tried to go to restrom but felt like she was bouncing down the ya , light-headed, confused, resolved after sitting still for a bit -Stable O2 requirements that night, no hx of CO2 narcosis, was not associated w/recent medicaid nurse -notes recent discontinuation of multiple meds -R [...] vaccines up-to-date. Word recall 12/27. HRA reviewed 12/09/2024 Hospital discharge follow-up (ICD-10 - Z09) Reviewed H&P and discharge summary, reviewed hospital records. Medicines personally reconciled. Problem list reviewed Will follow along with hospice services that my office arranged post discharge 01/13/2025 Hospital discharge follow-up (ICD-10 - Z09) Personally reviewed ER H&P and discharge summary as available from hospital discharge documentation. Reviewed pertinent labs and test done in the hospital. Personally reconciled medication. 07/22/2025 Other spent greater t muller 40 minutes in direct patient care with >50% of time spent on counseling on diagnoses and treatments. Plan Of Treatment Pending Test Test Name Order Date N-Urine Culture and Sensitivity 12/22/19 10 X ray : Shoulder, Left 11/23/2015 Bone Density 12/06/2011 DEXA Hip and Spine - Screening 1 EKG : In House 05/12/2007 EKG : In House 11/13/2011 Physical Therapy 05/05/2017 Physical Therapy 12/06/2011 Pulmonary Rehabilitation 11/16/2024 Pulmonary Rehabilitation 11/03/2018 EKG 10/01/2019 Occupational Therapy : Eval & [...] End Date MEDICARE PART B [address] [place] [phone] [id number] Shayy Black Self - patient is the insured 7 [employer] [facility] [address] [address] [place] [address] [id number] Shayy Black Self - patient is the insured 7 [employer] [address] [facility] [address] [place] [address] ACL Shayy Black Self - patient is the insured Medications Administered Medication Instructions Date of Administration Dosage Notes Ceftriaxone 500 04/01/2019 1 g Cyanocobalamin/B-12 Pt's Own Medication 05/11/2013 Ceftriaxone 500 05/11/2024 500 mg Ceftriaxone 500 10/13/2014 500 ug Ceftriaxone 500 11/30/2013 500 mg Kenalog 09/02/2013 1 mL Triamcinolone Acetonide 40mg Injection 12/19/2018 1 mL Promethazine 11/10/2017 1 mL Dexamethasone 4mg Injection 04/06/2024 4 mg Ceftriaxone 500 04/06/2024 500 mg Kenalog 09/01/2014 1 Kenalog 40mg 09/17/2019 40 mg Ceftriaxone 500 06/10/2023 500 mg Ceftriaxone 500 04/10/2021 500 mg Ceftriaxone 500 09/17/2019 1 g Ceftriaxone 500 09/01/2014 500 Cyanocobalamin/B-12 Pt's Own Medication 12/24/2013 Cyanocobalamin/B-12 Pt's Own Medication 06/30/2013 Triamcinolone Acetonide 40mg Injection 03/16/2019 1 mL Promethazine HCL 01/10/2014 Cyanocobalamin/B-12 Pt's Own Medication 07/06/2013 Dexamethasone 4mg Injection 09/12/2022 4 mg Cyanocobalamin/B-12 Pt's Own Medication 04/27/2013 Cyanocobalamin/B-12 Pt's Own Medication 05/05/2013 given by Eliceo Kelley Cyanocobalamin/B-12 Pt's Own Medication 07/13/2013 Cyanocobalamin/B-12 Pt's Own Medication 08/10/2013 Cyanocobalamin/B-12 Pt's Own Medication 01/21/2014 Cyanocobalamin/B-12 Pt's Own Medication 04/03/2015 Cyanocobalamin/B-12 Pt's Own Medication 04/05/2015 Cyanocobalamin/B-12 Pt's Own Medication 04/12/2015 Cyanocobalamin/B-12 Pt's Own Medication 04/19/2015 Dexamethasone 4mg Injection 11/23/2021 4 mg Dexamethasone 4mg Injection 11/27/2021 4 mg Kenalog 40mg 02/27/2017 40 mg Kenalog 40mg 06/13/2020 40 mg Triamcinolone Acetonide 40mg Injection 06/09/2018 1 mL Triamcinolone Acetonide 40mg Injection 06/22/2019 1 mL Triamcinolone Acetonide 40mg Injection 12/09/2019 1 mL Triamcinolone Acetonide 40mg Injection 01/06/2020 1 mL Triamcinolone Acetonide 40mg Injection 04/06/2020 1 mL Triamcinolone Acetonide 40mg Injection 05/26/2020 1 mL Triamcinolone Acetonide 40mg Injection 07/28/2020 1 mL Kenalog 03/24/2014 1 mL Kenalog 01/19/2015 1 mL Kenalog 11/23/2015 1 mL Kenalog 10/01/2016 1 Ceftriaxone 500 07/17/2021 500 mg Ceftriaxone 500 10/02/2021 500 mg Ceftriaxone 500 10/24/2022 500 mg Ceftriaxone 500 09/14/2024 500 mg Cyanocobalamin/B-12 Pt's Own Medication 05/18/2013 Cyanocobalamin/B-12 Pt's Own Medication 05/25/2013 Cyanocobalamin/B-12 Pt's Own Medication 06/02/2013 Cyanocobalamin/B-12 Pt's Own Medication 06/08/2013 Cyanocobalamin/B-12 Pt's Own Medication 06/15/2013 Cyanocobalamin/B-12 Pt's Own Medication 09/10/2013 Cyanocobalamin/B-12 Pt's Own Medication 10/15/2013 Dexamethasone 4mg Injection 07/17/2021 4 mg Dexamethasone 4mg Injection 10/02/2021 4 mg Dexamethasone 4mg Injection 10/24/2022 4 mg Dexamethasone 4mg Injection 05/11/2024 4 mg Dexamethasone 4mg Injection 09/14/2024 4 mg Kenalog 11/30/2013 1 mL Ceftriaxone 500 09/22/2013 500 mg Ceftriaxone 500 06/03/2016 500 mg Ceftriaxone 500 10/15/2018 1000 mg Ceftriaxone 500 08/05/2023 500 mg Ceftriaxone 500 11/23/2024 500 mg Dexamethasone 4mg Injection 08/05/2023 4 mg Dexamethasone 4mg Injection 11/23/2024 4 mg Triamcinolone Acetonide 40mg Injection 10/15/2018 1 mL Kenalog 09/22/2013 1 Ceftriaxone 500 01/18/2021 500 mg Dexamethasone 4mg Injection 01/14/2023 4 mg Dexamethasone 4mg Injection 06/10/2023 4 mg Triamcinolone Acetonide 40mg Injection 01/18/2021 1 mL Triamcinolone Acetonide 40mg Injection 04/10/2021 1 mL Ceftriaxone 500 01/19/2015 500 mg Ceftriaxone 500 10/01/2016 500 Ceftriaxone 500 02/27/2017 500 mg Ceftriaxone 500 06/09/2018 500 Ceftriaxone 500 11/23/2021 500 mg Dexamethasone 4mg Injection 10/08/2022 4 mg Medical (General) History Medical History History ICD [...] 6, 4 stents Hospitalization History Reason Date(Month/Year) [facility] - weakness and left hemiplegia with negative MRI 10/2023 chest pain 01/2021 cardiac 07/2019 respiratory 09/2018 [facility]- [facility]
[2025-08-02 00:59] LABS: Hematocrit 32.5 % (37.0-47.0); Hemoglobin 9.8 g/dL (12.2-16.2); Immature Granulocytes % 1.2 %; Mean Corpuscular HGB Conc 30.2 g/dL (31.8-35.4); Mean Corpuscular Hemoglobin 28.9 pg (27.0-31.2); Mean Corpuscular Volume 95.9 fl (81-99); Nucleated Red Blood Cells % 0 %; Platelet Count 272 K/mm3 (142-424); Red Blood Count 3.39 M/mm3 (4.20-5.40); Red Cell Distribution Width-SD 50.6 fL; White Blood Count 21.7 K/mm3 (4.8-10.8)
--- NOTE | 2025-08-02 01:00 | PC.NURSE ---
Skin tears cleansed with sterile water then adaptic placed and Kerlex wrapped around them secured with tape. Pt tolerated well.
--- NOTE | 2025-08-02 01:04 | PC.NURSE ---
Pt to CT scan via stretcher
[2025-08-02 01:14] LABS: Alanine Aminotransferase 23 U/L (12-78); Albumin Level 3.4 g/dl (3.5-5.0); Albumin/Globulin Ratio 1.4 (1.1-1.8); Alkaline Phosphatase 119 U/L (38-126); Anion Gap 10.5 mEq/L (5-15); Aspartate Amino Transferase 44 U/L (14-36); Bilirubin,Total 1.1 mg/dl (0.2-1.3); Blood Urea Nitrogen 17 mg/dl (7-17); Calcium 8.7 mg/dl (8.4-10.2); Carbon Dioxide 34 mmol/L (22.0-30.0); Chloride 95 mmol/L (98-107); Creatinine Clearance Estimated 49 mL/min (50-200); Creatinine,Serum 1.10 mg/dl (0.52-1.04); Estimated Glomerular Filt Rate 49 ml/min (>60); GFR (African American) 59 ML/MIN (>60); Globulin 2.4 g/dL (1.3-3.2); Glucose 124 mg/dl (74-100); Potassium 4.5 mmoL/L (3.5-5.1); Sodium 135 mmol/L (136-145); Total Protein,Serum 5.8 g/dl (6.3-8.2)
[2025-08-02 01:15] LABS: INR 1.07 (0.9-1.1); Prothrombin Time 11.8 seconds (10.1-12.5)
[2025-08-02] MEDS: SODIUM CHLORIDE 0.9% 10ML SYR (RAD ONLY) 10 ML IV (02:09)
[2025-08-02] MEDS: IOPAMIDOL-370 (76%);100ML BOTTLE 160 ML IV (02:09)
[2025-08-02] MEDS: 0.9 % SODIUM CHLORIDE 50 ML VIAL 100 ML IV (02:09)
[2025-08-02] MEDS: IPRATROPIUM/ALBUTEROL 3 ML NEB 6 ML IH (02:12)
--- NOTE | 2025-08-02 02:16 | PC.NURSE ---
Pt receiving respiratory nebulizer treatment after returning from CT scan
--- NOTE | 2025-08-02 03:07 | PC.NURSE ---
Pt awaiting ambulance transport home
== END 2025-08-02 03:37 | disposition home or self-care (01) ==
PROVIDERS: Emergency Provider Emergency Medicine; PCP Internal Medicine Adolescent Medicine
DX: S30.11XA Contusion of abdominal wall, initial encounter (principal); S00.83XA Contusion of other part of head, initial encounter; S51.001A Unspecified open wound of right elbow, initial encounter; S51.002A Unspecified open wound of left elbow, initial encounter; S81.001A Unspecified open wound, right knee, initial encounter; S81.002A Unspecified open wound, left knee, initial encounter; R06.02 Shortness of breath; W06.XXXA Fall from bed, initial encounter
CPT/HCPCS: 70450; 70486; 70496; 70498; 71275; 72125; 72128; 72131; 73080; 73552; 73590; 73630; 74174; 80053; 85025; 85610; 87389; 96374; 96375; 99285; J1885; J2270; Q9967